=== PATIENT | female | born 1960 | race Caucasian/White ===

== ENCOUNTER 2023-12-02 13:46 | Emergency (ER) | payer BC, SELFPAY ==
--- NOTE | 2023-12-02 13:52 | ED.URI ---
HPI - URI/Sore Throat General Chief Complaint: Upper Respiratory Infection Stated Complaint: cold flu symptoms,tired Time Seen by Provider: 12/02/23 14:06 Source: patient and RN notes reviewed Mode of arrival: ambulatory Limitations: no limitations History of Present Illness HPI Narrative: 63-year-old female presents with concern for one-week history of cough, harsh cough, nasal congestion, drainage, fatigue. Reports symptoms worsen over the last couple of days. Reports she has been taking an [id number] medication without relief. MD elicited complaint: cough and sore throat Related Data Allergies Allergy/AdvReac Type Severity Reaction Status Date / Time cephalexin [From Keflex] Allergy Severe Diarrhea Verified 12/02/23 14:00 Review of Systems Review of Systems: CONSTITUTIONAL: Reports malaise, chills EYES: Denies visual changes, redness, or discharge. ENT: Reports rhinorrhea, congestion, sinus pain, otalgia and sore throat. CARDIOVASCULAR: Denies chest pain, palpitations, or edema. RESPIRATORY: Reports cough. Denies dyspnea. GASTROINTESTINAL: Denies abdominal pain, nausea, vomiting, diarrhea SKIN: Denies rash or itching. MUSCULOSKELETAL: Reports myalgia. NEUROLOGIC: Denies headache. All systems reviewed & are unremarkable except as noted in HPI and below PMFSH Past Medical History Medical History (Updated 12/02/23 @ 14:11 by Dorita Almeida NP) Crohn disease Eustachian tube dysfunction Hypothyroidism (acquired) Surgical History Surgical History (Updated 10/27/23 @ 15:24 by Jane Feliciano MD) H/O breast augmentation S/P JACK (total abdominal hysterectomy) Family History Family History (Updated 10/17/23 @ 15:07 by Uyen Perez) Mother Diabetes mellitus Depression Social History Social History (Updated 10/17/23 @ 15:05 by Uyen Perez) Social History: Smoking status: Never smoker Second hand tobacco smoke exposure: No Alcohol intake: current Drinks per week: 4 Substance use: never Substance use type: does not use Lack of Transportation: No Lack of Food: Never True Current Housing: I Have Housing Concerned About Future Housing: No Difficulty Paying Gas/Electric Bills: No Difficulty Paying for Meds: No Currently Unemployed: YES Education: Associate Degree Difficulty w/ Childcare or Family Care: No Living arrangements: with family Occupation/Education: retired Gender identity (if verbalized by the patient): Female Sexual Orientation (if Verbalized by the Patient): Straight or Heterosexual Comments At time of signature, agree with nursing past medical, surgical, social and family history. There is no relevant family history pertinent to the presenting complaint Exam Narrative: GENERAL: Nontoxic-appearing, well-nourished, and in no acute distress. HEAD: Normocephalic EYES: PERRLA, conjunctivae clear ENT: Nares clear, turbinates edematous and erythematous. Mucous membranes moist. TM pearly ball with dull light reflex bilaterally; no tragal tenderness. Oropharynx not erythematous without lesions. Tonsils not enlarged and without exudate, no drooling, no hoarseness, no trismus, uvula midline. NECK: Supple. No lymphadenopathy CHEST: Clear to auscultation, breath sounds equal. No wheezing, rhonchi, rales, or stridor. No respiratory distress, speaks in full sentences. Harsh cough noted HEART: Regular rate and rhythm. No murmur heard. SKIN: Warm, dry, no rash. NEURO: Alert and oriented x3. PSYCH: Normal mood and affect Course Course Emergency Course: Patient is aware of diagnosis, understands and agrees to treatment plan. Anticipatory guidance given. Patient agrees to follow-up as directed and is aware of reasons to seek care at the emergency department. Portions of this record may have been created with voice recognition software Level of Care: Express Care Visit Vital Signs Vital signs: Reviewed. ROBERTO CARLOS PRESCOTT/Lucrecia
[2023-12-02 14:05] VITALS: BP 139/83; PULSE 75; RESP 16; TEMP 37.4; O2SAT 98
== END 2023-12-02 14:16 | disposition home or self-care (01) ==
PROVIDERS: Emergency Provider Nurse Practitioner; PCP Family Medicine
DX: J32.9 Chronic sinusitis, unspecified (principal); J40 Bronchitis, not specified as acute or chronic; K50.90 Crohn's disease, unspecified, without complications; E03.9 Hypothyroidism, unspecified
CPT/HCPCS: 99213; G0463

== ENCOUNTER 2023-12-31 16:57 | Emergency (ER) | payer BC, SELFPAY ==
[2023-12-31 17:11] VITALS: BP 139/85; PULSE 84; RESP 16; TEMP 38.1; O2SAT 99
--- NOTE | 2023-12-31 17:26 | ED.URI ---
HPI - URI/Sore Throat General Chief Complaint: Upper Respiratory Infection Stated Complaint: Strep symptoms Time Seen by Provider: 12/31/23 17:20 Source: patient Mode of arrival: ambulatory Limitations: no limitations History of Present Illness HPI Narrative: Gina is a 63-year-old female patient presenting to the clinic today with complaints of nausea, vomiting, diarrhea, cough, fever, chills, body aches, sore throat, and nasal congestion since night. Reports highest temperature was 100.3? FKanwal GOMEZ elicited complaint: sore throat and nasal congestion Related Data Allergies Allergy/AdvReac Type Severity Reaction Status Date / Time cephalexin [From Keflex] Allergy Severe Diarrhea Verified 12/31/23 17:30 Review of Systems Review of Systems: Pertinent positives per HPI. Patient denies any rash, headache, visual changes, dizziness,shortness of breath, chest pain, palpitations, nausea, vomiting, diarrhea, constipation, abdominal pain, or any urinary issues. PMFSH Past Medical History Medical History Crohn disease Eustachian tube dysfunction Hypothyroidism (acquired) Surgical History Surgical History H/O breast augmentation S/P JACK (total abdominal hysterectomy) Family History Family History Mother Diabetes mellitus Depression Social History Social History Social History: Smoking status: Never smoker Second hand tobacco smoke exposure: No Alcohol intake: current Drinks per week: 4 Substance use: never Substance use type: does not use Lack of Transportation: No Lack of Food: Never True Current Housing: I Have Housing Concerned About Future Housing: No Difficulty Paying Gas/Electric Bills: No Difficulty Paying for Meds: No Currently Unemployed: YES Education: Associate Degree Difficulty w/ Childcare or Family Care: No Living arrangements: with family Occupation/Education: retired Gender identity (if verbalized by the patient): Female Sexual Orientation (if Verbalized by the Patient): Straight or Heterosexual Comments At the time of my signature, I reviewed and agree with the nursing past medical, surgical, social, and family history. There is no relevant family history pertinent to the patient complaint. Exam Narrative: General: Well-developed, well nourished, in no apparent distress Head: Normocephalic, atraumatic Eyes: Pupils equally round and reactive to light bilaterally, EOM intact, sclera and conjunctive clear, no discharge, lids normal Ears: TMs intact and clear, ear canals clear, no drainage, grossly hearing normal. Nose: Nares patent,clear nasal discharge, no inflammation, no sinus tenderness. Mouth: Oral pharynx red without lesions or masses, good dentition, MMM. Neck: Supple, trachea midline, no enlargement of anterior or posterior cervical nodes, no thyroid masses or goiter palpable. Cardio: Regular rate and rhythm, s1 and s2 normal, no murmur appreciated. Resp: Clear to auscultation bilaterally, no rhonchi, rales, wheezing or rubs Course Course Emergency Course: Portions of this record may have been created with voice recognition software. Level of Care: Express Care Visit Vital Signs Vital signs: Vital Signs Temperature 38.1 C H 12/31/23 17:11 Pulse Rate 84 12/31/23 17:11 Respiratory Rate 16 12/31/23 17:11 Blood Pressure 139/85 12/31/23 17:11 Pulse Oximetry 99 12/31/23 17:11 Temperature 38.1 C H 12/31/23 17:11 Pulse Rate 84 12/31/23 17:11 Respiratory Rate 16 12/31/23 17:11 Blood Pressure 139/85 12/31/23 17:11 Pulse Oximetry 99 12/31/23 17:11 Vital signs reviewed MDM - URI/Sore Throat MDM Narrative Medical decision making narrative: At the time o
--- NOTE | 2023-12-31 17:49 | PC.NURSE ---
1735- covid poc results entered incorrectly- pt is positive for covid 19 today.
== END 2023-12-31 17:35 | disposition home or self-care (01) ==
PROVIDERS: Emergency Provider Nurse Practitioner Family; PCP Family Medicine
DX: U07.1 COVID-19 (principal); K50.90 Crohn's disease, unspecified, without complications; E03.9 Hypothyroidism, unspecified
CPT/HCPCS: 87081; 87426; 87804; 87880; 99213; G0463

== ENCOUNTER 2024-01-05 10:38 | Emergency (ER) | payer BC, SELFPAY ==
--- NOTE | ~2024-01-05 | XR_ITS ---
EXAMINATION: XR chest 2V DATE: 01/05/2024 11:10 INDICATION: Cough and shortness of breath, COVID 19 positive TECHNIQUE: PA and lateral views of the chest are obtained. COMPARISON: None available FINDINGS: The lungs are free of acute opacities. No pleural effusion or pneumothorax. The cardiomedia stinal silhouette is normal. There is mild thoracic spondylosis. Bilateral breast implants are noted. IMPRESSION: 1. No acute cardiopulmonary abnormality. Reviewed, dictated and finalized at location A. 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
--- NOTE | 2024-01-05 10:44 | ED.URI ---
HPI - URI/Sore Throat General Chief Complaint: Upper Respiratory Infection Stated Complaint: Fever, COVID, Head Congestion Source: patient Mode of arrival: ambulatory Limitations: no limitations History of Present Illness HPI Narrative: 63 y/o female who tested positive for Covid 5 days ago, presented today for c/o worsening symptoms x3 days. States she had felt somewhat better for a few days before everything worsened. Endorses bilateral ear pressure, decreased hearing, decreased appetite, nausea, vomiting, sob with exertion, fever and fatigue. Endorses temp up to 103 this morning 0400. Taking Tylenol and multiple OTC meds for symptoms. Related Data Home Medications Medication Instructions Recorded Confirmed ipratropium bromide 21 mcg (0.03 intranasal 01/05/24 01/05/24 %) nasal spray Allergies Allergy/AdvReac Type Severity Reaction Status Date / Time cephalexin [From Keflex] Allergy Severe Diarrhea Verified 01/05/24 10:44 Review of Systems Review of Systems: CONSTITUTIONAL: Denies body aches, reports fever, chills, or sweats. EYES: Denies visual changes, redness, or discharge. ENT: Denies rhinorrhea, congestion, sore throat, reports otalgia. CARDIOVASCULAR: Denies chest pain, palpitations, or edema. RESPIRATORY: Reports cough, sob denies wheezing. GASTROINTESTINAL: Denies abdominal pain, reports decreased appetite nausea, vomiting, diarrhea. SKIN: Denies rash, itching MUSCULOSKELETAL: Denies back pain, joint pain NEUROLOGIC: Denies headache, numbness, tingling, or weakness. All systems reviewed & are unremarkable except as noted in HPI and below PMFSH Past Medical History Medical History Crohn disease Eustachian tube dysfunction Hypothyroidism (acquired) Surgical History Surgical History H/O breast augmentation S/P JACK (total abdominal hysterectomy) Family History Family History Mother Diabetes mellitus Depression Social History Social History Social History: Smoking status: Never smoker Second hand tobacco smoke exposure: No Alcohol intake: current Drinks per week: 4 Substance use: never Substance use type: does not use Lack of Transportation: No Lack of Food: Never True Current Housing: I Have Housing Concerned About Future Housing: No Difficulty Paying Gas/Electric Bills: No Difficulty Paying for Meds: No Currently Unemployed: YES Education: Associate Degree Difficulty w/ Childcare or Family Care: No Living arrangements: with family Occupation/Education: retired Gender identity (if verbalized by the patient): Female Sexual Orientation (if Verbalized by the Patient): Straight or Heterosexual Comments At time of signature, I have reviewed and agree with nursing past medical, surgical, social and family history unless otherwise noted. Please see nursing chart for further information. There is no relevant family history pertinent to the presenting complaint Exam Narrative: GENERAL: ill-appearing, nontoxic in no acute distress. Tearful throughout encounter. EYES: EOMI. No redness or drainage. Conjunctivae normal. ENT: Mucous membranes pink and moist. TMs bilaterally erythematous, bulging and intact, canals not erythematous, No drainage. Throat normal. Uvula midline. NECK: Normal AROM. CHEST: No respiratory distress. 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 No murmur appreciated. ABDOMEN: Soft, nontender, nondistended, normal active bowel sounds. EXTREMITIES: Normal range of motion. No edema. SKIN: Warm, dry, no rash. Capillary refill normal. Normal skin turgor. NEURO: Alert and oriented x3. Gait steady. Course Course Emergency Course: Patient is aware of diagnosis,
[2024-01-05 10:45] VITALS: BP 131/76; PULSE 76; RESP 16; TEMP 36.7; O2SAT 98
== END 2024-01-05 11:44 | disposition left against medical advice (07) ==
PROVIDERS: Emergency Provider Nurse Practitioner Family; PCP Family Medicine
DX: H66.93 Otitis media, unspecified, bilateral (principal); K50.90 Crohn's disease, unspecified, without complications; E03.9 Hypothyroidism, unspecified
CPT/HCPCS: 71046; 99213; G0463

== ENCOUNTER 2024-02-21 11:58 | Outpatient (CLI) | payer BC, SELFPAY ==
[2024-02-21 13:38] LABS: Thyroid Stimulating Hormone 0.845 uIU/mL (0.465-4.680); Total Triiodothyronine (T3) 1.18 NG/ML (0.97-1.69)
[2024-02-21 13:55] LABS: Free T4 Free Thyroxine 1.06 ng/mL (0.78-2.19)
[2024-02-25 04:18] LABS: Thyroid Peroxidase Antibodies <1 IU/mL (<9)
== END 2024-02-21 11:59 | disposition home or self-care (01) ==
LOC: ANHLAB 11:59
PROVIDERS: PCP Family Medicine; Visit Provider Family Medicine
DX: E03.9 Hypothyroidism, unspecified (principal)
CPT/HCPCS: 36415; 84439; 84443; 84480; 86376

== ENCOUNTER 2024-04-01 11:24 | Outpatient (CLI) | payer BC, SELFPAY ==
[2024-04-01 11:49] LABS: Basophils Percent Auto 0.3 % (0.2-1.2); Eosinophils Absolute Auto 0.2 K/mm3 (0-0.3); Eosinophils Percent Auto 2.2 % (0-4.4); Hematocrit 44.9 % (37.0-47.0); Hemoglobin 14.6 g/dL (12.0-15.0); Immature Granulocyte Absolute 0.03 K/mm3 (0.00-0.031); Immature Granulocyte Percent A 0.4 % (0-0.5); Lymphocytes Absolute Auto 1.36 K/mm3 (0.9-3.2); Lymphocytes Percent Auto 19.5 % (18.3-44.2); Mean Corpuscular HGB Conc 32.5 g/dl (32-36); Mean Corpuscular Hemoglobin 31.2 pg (26-34); Mean Corpuscular Volume 95.9 fl (80-100); Mean Platelet Volume 9.7 fl (7.4-10.4); Monocytes Absolute Auto 0.5 K/mm3 (0.1-0.6); Monocytes Percent Auto 7.8 % (2.6-8.5); Neutrophils Absolute Auto 4.9 K/mm3 (1.3-6.7); Neutrophils Percent Auto 69.8 % (45.5-73.1); Platelet Count Result 354 k/mm3 (150-375); Red Blood Count 4.68 M/mm3 (4.2-5.4); Red Cell Distribution Width 12.8 % (11.5-14.5)
[2024-04-01 12:19] LABS: Alanine Aminotransferase 24 U/L (6-35); Albumin Level 4.4 g/dL (3.5-5.1); Alkaline Phosphatase 122 U/L (38-126); Amylase 64 U/L (30-110); Anion Gap 7 mmol/L (4-12); Aspartate Amino Transferase 38 U/L (14-36); Bilirubin,Total 0.8 mg/dL (0.2-1.3); Blood Urea Nitrogen 12 mg/dL (7-17); Calcium 9.4 mg/dL (8.4-10.2); Carbon Dioxide 29 mmol/L (22-30); Chloride 101 mmol/L (98-107); Cholesterol 132 mg/dL (0-200); Estimated Glomerular Filt Rate > 60; Glucose 128 mg/dL (65-110); HDL Direct 66 mg/dL; Lipase 77 U/L (23-300); Potassium 3.6 mmol/L (3.4-5.0); Sodium 137 mmol/L (137-145); Triglycerides 213 mg/dL (<150)
[2024-04-01 12:25] LABS: LDL Cholesterol Direct 48 mg/dL
[2024-04-03 14:18] LABS: ANA Cascade Screen NEGATIVE (NEGATIVE)
== END 2024-04-01 11:25 | disposition home or self-care (01) ==
LOC: ANHLAB 11:26
PROVIDERS: PCP Family Medicine; Visit Provider Physician Assistant
DX: E03.9 Hypothyroidism, unspecified (principal); E78.2 Mixed hyperlipidemia; M25.50 Pain in unspecified joint; R10.9 Unspecified abdominal pain
CPT/HCPCS: 36415; 80053; 80061; 82150; 83690; 85025; 86038; 86225; 86235; 86364

== ENCOUNTER 2024-04-01 11:54 | Outpatient (CLI) | payer BC, SELFPAY ==
--- NOTE | ~2024-04-01 | CT_ITS ---
EXAMINATION: CT abdomen pelvis w con DATE: 04/01/2024 12:18 INDICATION: Unspecified abdominal pain. TECHNIQUE: Computed tomography (CT) of the abdomen and pelvis was performed with 100 mL Omnipaque 350 intravenous contrast. Automated exposure control and iterative reconstruction technique were employe d. The dose-length product was 519.30 mGy-cm. COMPARISON: None. FINDINGS: The visualized portions of the lung bases demonstrate mild atelectasis. No pleural effusion . The heart size is normal. No pericardial effusion. There is a small sliding hiatal hernia. The live r, gallbladder, spleen, pancreas, and adrenal glands are normal. There are cysts in the kidneys measu ring up to 4 mm. There are no dilated loops of bowel. The appendix is normal. Aortic atherosclerosis is noted. There are no pathologically enlarged lymph nodes. There is no free intraperitoneal fluid. T here is mild lumbar spondylosis. IMPRESSION: 1. No etiology for the patient's symptoms. Reviewed, dictated and finalized at location A.
[2024-04-01 12:12] LABS: Estimated Glomerular Filt Rate 56
== END 2024-04-01 11:55 | disposition home or self-care (01) ==
LOC: ANHIMG 11:54
PROVIDERS: PCP Family Medicine; Visit Provider Physician Assistant
DX: R10.829 Rebound abdominal tenderness, unspecified site (principal); R19.4 Change in bowel habit
CPT/HCPCS: 36415; 74177; 80053; 80061; 82150; 83690; 85025; 86038; 86225; 86235; 86364; Q9967

== ENCOUNTER 2024-04-01 14:34 | Outpatient (CLI) | payer BC, SELFPAY ==
--- NOTE | ~2024-04-01 | MM_ITS ---
EXAMINATION: MM scrn tonya implant BI w keira HISTORY: Screening mammogram TECHNIQUE: Craniocaudal and mediolateral oblique 3-D tomosynthesis images with implant displacement a nd synthetic 2-D images were generated. Craniocaudal and mediolateral oblique views of the breasts wi thout implant displacement were obtained using full field digital mammography. CAD analysis was submi tted and interpreted. COMPARISON: No prior mammogram is available for comparison at this institution. BREAST PARENCHYMAL COMPOSITION: Not dense: There are scattered areas of fibroglandular density. FINDINGS: There is no evidence of suspicious mass, calcification, or architectural distortion to sugg est malignancy in either breast. There has been no suspicious interval change. IMPRESSION: 1. No mammographic evidence of malignancy. 2. Recommend routine screening mammography in one year. BI-RADS Category 1: Negative Reviewed, dictated and finalized at location B.
== END 2024-04-01 14:35 ==
LOC: MICIMG 14:35
PROVIDERS: PCP Family Medicine; Visit Provider Family Medicine
DX: Z12.31 Encounter for screening mammogram for malignant neoplasm of breast (principal)
CPT/HCPCS: 77063; 77067

== ENCOUNTER 2024-05-04 14:22 | Outpatient (CLI) | payer BC, SELFPAY ==
[2024-05-04 15:14] LABS: CRP 1.8 mg/dL (<1.0)
[2024-05-04 17:11] LABS: Erythrocyte Sedimentation Rate 26 mm/hr (0-20)
[2024-05-04 18:29] LABS: Hepatitis B Surface Antigen Negative (Negative)
[2024-05-04 18:47] LABS: Hepatitis B Surface Anti Res Negative
[2024-05-05 12:13] LABS: Hepatitis B Core Ab Total NON-REACTIVE (NON-REACTIVE)
[2024-05-06 15:49] LABS: NIL 0.07 IU/mL; Quantiferon TB Plus, 1T NEGATIVE (NEGATIVE); TB1-NIL 0.01 IU/mL; TB2-NIL 0.01 IU/mL
== END 2024-05-04 14:23 | disposition home or self-care (01) ==
LOC: ANHLAB 14:24
PROVIDERS: PCP Family Medicine; Visit Provider Nurse Practitioner Family
DX: K50.90 Crohn's disease, unspecified, without complications (principal); R19.7 Diarrhea, unspecified; Z79.899 Other long term (current) drug therapy; Z11.59 Encounter for screening for other viral diseases
CPT/HCPCS: 36415; 85652; 86140; 86480; 86704; 86706; 87340

== ENCOUNTER 2024-05-08 12:53 | Outpatient (CLI) | payer BC, SELFPAY ==
[2024-05-08 14:31] LABS: Toxigenic C. Diff NEGATIVE (NEGATIVE)
== END 2024-05-08 12:54 | disposition home or self-care (01) ==
LOC: ANHLAB 12:55
PROVIDERS: PCP Family Medicine; Visit Provider Nurse Practitioner Family
DX: K50.90 Crohn's disease, unspecified, without complications (principal); R19.7 Diarrhea, unspecified; Z11.59 Encounter for screening for other viral diseases; Z79.899 Other long term (current) drug therapy
CPT/HCPCS: 83993; 87045; 87269; 87427; 87449; 87493

== ENCOUNTER 2024-05-26 00:52 | Emergency (ER) | payer BC, SELFPAY ==
[2024-05-26 00:55] VITALS: BP 120/91; PULSE 105; RESP 15; TEMP 36.8; O2SAT 98
[2024-05-26 01:15] VITALS: BP 172/91; PULSE 86; RESP 16; O2SAT 96
--- NOTE | 2024-05-26 01:59 | ED.SKABFB ---
HPI - Skin/Abscess/Foreign Bdy General Chief complaint: Skin/Abscess/Foreign Body Stated complaint: shingles, radiating pain, fevers Time Seen by Provider: 05/26/24 01:49 Source: patient and family () Mode of arrival: ambulatory Limitations: no limitations History of Present Illness HPI narrative: Patient presents with pain across her left low abdomen and back. Her symptoms began on 05/22/2024 and started with some burning and itching pain along her abdomen. She was seen in urgent care [phone] and diagnosed with shingles for which she was immediately prescribed Valtrex and started taking his medication. However, she continues to have significant pain. She denies any current itching but does describe a burning sensation in distribution of rash. She had previously attempted to get a shingles vaccine but it was cancelled since it had been scheduled for the same day she got her COVID vaccine. She denies any SOB. She did recently undergo sinus surgery with packing and was prescribed [place] 5-325 for this. Pain from shingles was so bad she had to take a tablet though she usually tries to avoid this; has 6 [place] 5mg tablets left. Patient had previously been on Imuran and Elizcal (sp?) for Crohn's has otherwise been in remission. 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 Regino sena however this was postponed to 06/11/24 given the recent shingles diagnosis. Her last steroid dose was in January. She does not take NSAIDs given her history of Crohn's as this makes her symptoms worse Related Data Home Medications Medication Instructions Recorded Confirmed ipratropium bromide 21 mcg (0.03 1 spray intranasal DAILY 01/05/24 05/15/24 %) nasal spray Allergies Allergy/AdvReac Type Severity Reaction Status Date / Time No Known Allergies Allergy Verified 05/26/24 01:18 [facility] Past Medical History Medical History (Updated 05/26/24 @ 03:40 by Dilcia Chatman MD) Crohn disease Diarrhea Eustachian tube dysfunction GERD (gastroesophageal reflux disease) High risk medication use Hx of adenomatous colonic polyps Hypothyroidism (acquired) Nausea and vomiting Need for hepatitis B screening test Surgical History Surgical History (Updated 05/26/24 @ 18:06 by Dilcia Chatman MD) H/O breast augmentation History of sinus surgery May 2024 S/P JACK (total abdominal hysterectomy) Family History Family History Mother Diabetes mellitus Depression Social History Social History (Updated 05/26/24 @ 17:59 by Dilcia Chatman MD) Social History: Years smoked: 30 Smoking status: Former smoker Tobacco type: cigarettes Second hand tobacco smoke exposure: No Alcohol intake: current Drinks per week: 14 Substance use: current Substance use type: marijuana Last use: 05/02/24 Lack of Transportation: No Lack of Food: Never True Current Housing: I Have Housing Concerned About Future Housing: No Difficulty Paying Gas/Electric Bills: No Difficulty Paying for Meds: No Currently Unemployed: YES Education: Associate Degree Difficulty w/ Childcare or Family Care: No Living arrangements: other Additional living arrangements comments: with sp Occupation/Education: retired 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 HEAD: Normocephalic, atraumatic. EYES: Non injected, non icteric ENT: Nares clear, no rhinorrhea or epistaxis. NECK: Supple. CHEST: Speaking in full sentences. No respiratory distress. HEART: Mildly tachycardic rate and rhythm. . ABDOMEN: Soft, nondis
[2024-05-26 02:06] VITALS: BP 143/95; PULSE 91; RESP 16; O2SAT 99
[2024-05-26] MEDS: HYDROmorphone HCL INJ (*CRX) 1 MG/ML SYR 0.5 MG IV PUSH (02:17)
[2024-05-26 02:25] LABS: Basophils Percent Auto 0.7 % (0.2-1.2); Eosinophils Absolute Auto 0.1 K/mm3 (0-0.3); Hematocrit 44.4 % (37.0-47.0); Immature Granulocyte Absolute 0.02 K/mm3 (0.00-0.031); Immature Granulocyte Percent A 0.4 % (0-0.5); Lymphocytes Absolute Auto 1.34 K/mm3 (0.9-3.2); Lymphocytes Percent Auto 23.8 % (18.3-44.2); Mean Corpuscular HGB Conc 33.8 g/dl (32-36); Mean Corpuscular Hemoglobin 31.9 pg (26-34); Mean Corpuscular Volume 94.5 fl (80-100); Mean Platelet Volume 9.6 fl (7.4-10.4); Monocytes Absolute Auto 0.7 K/mm3 (0.1-0.6); Monocytes Percent Auto 12.1 % (2.6-8.5); Neutrophils Absolute Auto 3.4 K/mm3 (1.3-6.7); Platelet Count Result 296 k/mm3 (150-375); Red Cell Distribution Width 13.5 % (11.5-14.5); White Blood Count 5.6 K/mm3 (4.5-10.0)
[2024-05-26 02:44] LABS: Alanine Aminotransferase 22 U/L (6-35); Albumin Level 4.5 g/dL (3.5-5.1); Alkaline Phosphatase 106 U/L (38-126); Anion Gap 10 mmol/L (4-12); Aspartate Amino Transferase 33 U/L (14-36); Bilirubin,Total 0.8 mg/dL (0.2-1.3); Blood Urea Nitrogen 8 mg/dL (7-17); CRP 0.9 mg/dL (<1.0); Calcium 9.6 mg/dL (8.4-10.2); Carbon Dioxide 24 mmol/L (22-30); Chloride 102 mmol/L (98-107); Estimated CRCL calculation 54 ml/min; Estimated Glomerular Filt Rate 56; Glucose 121 mg/dL (65-110); Sodium 136 mmol/L (137-145)
[2024-05-26 03:02] VITALS: BP 139/75; PULSE 76; RESP 16; O2SAT 94
[2024-05-26 03:36] LABS: Erythrocyte Sedimentation Rate 43 mm/hr (0-20)
[2024-05-26] MEDS: LIDOCAINE 5% PATCH 1 PATCH TRANSDERM (03:43)
== END 2024-05-26 03:44 | disposition home or self-care (01) ==
PROVIDERS: Emergency Provider Student in an Organized Health Care Education/Training Program; PCP Family Medicine
DX: B02.9 Zoster without complications (principal); R70.0 Elevated erythrocyte sedimentation rate; E03.9 Hypothyroidism, unspecified; Z87.891 Personal history of nicotine dependence
CPT/HCPCS: 36415; 80053; 85025; 85652; 86140; 96374; 99284; A9270; J1170

== ENCOUNTER 2024-05-28 19:16 | Emergency (ER) | payer BC, SELFPAY ==
--- NOTE | ~2024-05-28 | CT_ITS ---
EXAMINATION: CT abdomen pelvis w con DATE: 05/28/2024 21:59 INDICATION: left-sided abdominal pain TECHNIQUE: Computed tomography (CT) of the abdomen and pelvis was performed with 100 mL Omnipaque-350 intravenous contrast. Automated exposure control and iterative reconstruction technique were employe d. The dose-length product was 427.29 mGy-cm. COMPARISON: 04/01 2024. FINDINGS: Lower thorax: Bilateral breast implants. Minimal dependent scar/atelectasis. Liver: Normal. Biliary/Gallbladder: Mild gallbladder distention. No bile duct dilation. Pancreas: No mass or duct dilation. Spleen: Normal. Adrenals:No mass. Kidneys: No suspicious mass, obstructing stone, or hydronephrosis. Multiple subcentimeter bilateral h ypodensities that are too small to characterize but most likely represent cysts. GI tract: No small or large bowel dilation. Normal appendix. Mesentery/Peritoneum: No ascites, mass, or free air. Retroperitoneum: No mass. Atherosclerotic abdominal aortic and/or arterial calcifications. Pelvis: Pelvic organs are within normal limits. Soft Tissues: Soft tissues and body wall unremarkable. Bones: No acute osseous finding. IMPRESSION: Mild gallbladder hydrops which can occur with obstruction or fasting. No stones or inflammatory friedman e. Correlate with biliary labs. Otherwise, no acute abdominopelvic process detected. Reviewed, dictated and finalized at location K. IMPRESSION: Mild gallbladder hydrops which can occur with obstruction or fasting. No stones or inflammatory change. Correlate with biliary labs. Otherwise, no acute abdominopelvic process detected.
[2024-05-28 19:32] VITALS: BP 130/98; PULSE 86; RESP 15; TEMP 36.6; O2SAT 98
[2024-05-28 19:53] LABS: Basophils Percent Auto 0.4 % (0.2-1.2); Eosinophils Absolute Auto 0.1 K/mm3 (0-0.3); Eosinophils Percent Auto 1.8 % (0-4.4); Hematocrit 44.9 % (37.0-47.0); Hemoglobin 14.9 g/dL (12.0-15.0); Immature Granulocyte Absolute 0.02 K/mm3 (0.00-0.031); Immature Granulocyte Percent A 0.3 % (0-0.5); Lymphocytes Absolute Auto 1.97 K/mm3 (0.9-3.2); Lymphocytes Percent Auto 27.6 % (18.3-44.2); Mean Corpuscular HGB Conc 33.2 g/dl (32-36); Mean Corpuscular Hemoglobin 31.4 pg (26-34); Mean Corpuscular Volume 94.5 fl (80-100); Mean Platelet Volume 9.6 fl (7.4-10.4); Monocytes Absolute Auto 0.7 K/mm3 (0.1-0.6); Monocytes Percent Auto 9.1 % (2.6-8.5); Neutrophils Absolute Auto 4.3 K/mm3 (1.3-6.7); Neutrophils Percent Auto 60.8 % (45.5-73.1); Platelet Count Result 342 k/mm3 (150-375); Red Blood Count 4.75 M/mm3 (4.2-5.4); Red Cell Distribution Width 13.4 % (11.5-14.5); White Blood Count 7.1 K/mm3 (4.5-10.0)
[2024-05-28 20:05] LABS: Alanine Aminotransferase 18 U/L (6-35); Albumin Level 4.5 g/dL (3.5-5.1); Alkaline Phosphatase 90 U/L (38-126); Anion Gap 10 mmol/L (4-12); Aspartate Amino Transferase 26 U/L (14-36); Bilirubin,Total 0.7 mg/dL (0.2-1.3); Blood Urea Nitrogen 10 mg/dL (7-17); Calcium 9.6 mg/dL (8.4-10.2); Carbon Dioxide 23 mmol/L (22-30); Chloride 104 mmol/L (98-107); Estimated CRCL calculation 54 ml/min; Estimated Glomerular Filt Rate 56; Glucose 117 mg/dL (65-110); Lipase 81 U/L (23-300); Potassium 4.1 mmol/L (3.4-5.0); Sodium 137 mmol/L (137-145)
[2024-05-28] MEDS: HYDROmorphone HCL INJ (*CRX) 1 MG/ML SYR IV PUSH (20:28)
[2024-05-28] MEDS: SODIUM CHLORIDE 0.9% IV 1,000 ML 999 ML IV CONT (20:29)
[2024-05-28 20:35] LABS: Appearance Urine Cloudy (Clear); Bacteria Urine 3+ /hpf; Bilirubin Urine Negative (Negative); Blood Urine Negative (Negative); Color Urine Yellow (Yellow); Glucose Urine UA Negative (Negative); Ketones Urine Negative (Negative); Leukocyte Esterase Ur Trace LEU/UL (Negative); Need Manual Microscopic Reviewed; Nitrate Urine Negative (Negative); Protein Urine 1+ mg/dL (Negative); RBC Urine 0-2 /hpf (0-2); Specific Grav Ur 1.014 (1.001-1.035); Squamous Epithelial Cell Urine Many /hpf (Few); Urobilinogen Urine 0.2 mg/dL (<2.0); pH Urine 5.5 (5.0-9.0)
[2024-05-28 20:36] LABS: Add Urine Microscopic? YES
--- NOTE | 2024-05-28 21:03 | PC.NURSE ---
patient had full hysterectomy
[2024-05-28] MEDS: GABAPENTIN 300 MG CAPSULE 600 MG PO (21:28)
[2024-05-28 22:05] VITALS: BP 111/72; PULSE 72; RESP 15; O2SAT 99
[2024-05-28 23:30] VITALS: BP 134/73; PULSE 76; RESP 13; O2SAT 98
--- NOTE | 2024-05-28 23:35 | PC.NURSE ---
care and report given to HUONG Gupta. all questions answered.
--- NOTE | 2024-05-28 23:51 | PC.NURSE ---
Spoke with RN from [facility] who tells me that if the pt cannot get to [facility] by 0230 then she will have to arrive after 0900.
--- NOTE | 2024-05-28 23:56 | ED.GENADULT ---
HPI - General Adult General Chief complaint: Unspecified Stated complaint: abd distention Time Seen by Provider: 05/28/24 20:09 History of Present Illness HPI narrative: patient 8-year-old female who presents emergency department with chief complaint of abdominal pain. The patient reports she was diagnosed with shingles is currently on antivirals but reports that she has had worsening pain the patient has been on hydrocodone but reports that is not really helping her pain the patient does report that the area around where the rash is appears to be more swollen and was concerned for other possible issues Related Data Home Medications Medication Instructions Recorded Confirmed ipratropium bromide 21 mcg (0.03 1 spray intranasal DAILY 01/05/24 05/28/24 %) nasal spray Allergies Allergy/AdvReac Type Severity Reaction Status Date / Time No Known Allergies Allergy Verified 05/28/24 19:38 Review of Systems Review of Systems: A 10 system review of systems was completed on the patient and is negative except for what is stated in the HPI. Nursing and ancillary documentation was reviewed. PMFSH Past Medical History Medical History Crohn disease Diarrhea Eustachian tube dysfunction GERD (gastroesophageal reflux disease) High risk medication use Hx of adenomatous colonic polyps Hypothyroidism (acquired) Nausea and vomiting Need for hepatitis B screening test Surgical History Surgical History H/O breast augmentation History of sinus surgery May 2024 S/P JACK (total abdominal hysterectomy) Family History Family History Mother Diabetes mellitus Depression Social History Social History Social History: Years smoked: 30 Smoking status: Former smoker Tobacco type: cigarettes Second hand tobacco smoke exposure: No Alcohol intake: current Drinks per week: 14 Substance use: current Substance use type: marijuana Last use: 05/02/24 Lack of Transportation: No Lack of Food: Never True Current Housing: I Have Housing Concerned About Future Housing: No Difficulty Paying Gas/Electric Bills: No Difficulty Paying for Meds: No Currently Unemployed: YES Education: Associate Degree Difficulty w/ Childcare or Family Care: No Living arrangements: other Additional living arrangements comments: with sp Occupation/Education: retired 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 HEAD: Normocephalic, atraumatic. EYES: PERRLA and EOMI. ENT: Nares clear, no rhinorrhea or epistaxis. Mucous membranes moist. NECK: Supple. CHEST: Clear to auscultation. No respiratory distress. HEART: Regular rate and rhythm. No murmur heard. Normal peripheral pulses. ABDOMEN: Soft, mild diffuse tenderness the abdomen, nondistended, normal active bowel sounds. EXTREMITIES: Normal range of motion. No edema. SKIN: Warm, dry, zoster for rash present to the left side of the abdomen. NEURO: No focal deficits. Alert and oriented x3. PSYCH: Normal mood and affect. Course Vital Signs Vital signs: Vital Signs Temperature 36.6 C 05/28/24 19:32 Pulse Rate 86 05/28/24 19:32 Respiratory Rate 15 05/28/24 19:32 Blood Pressure 130/98 H 05/28/24 19:32 Pulse Oximetry 98 05/28/24 19:32 Oxygen Delivery Room Air 05/28/24 19:32 Temperature 36.6 C 05/28/24 19:32 Pulse Rate 76 05/28/24 23:30 Respiratory Rate 13 05/28/24 23:30 Blood Pressure 134/73 05/28/24 23:30 Pulse O
== END 2024-05-29 00:20 | disposition home or self-care (01) ==
PROVIDERS: Emergency Provider Emergency Medicine; PCP Family Medicine
DX: B02.9 Zoster without complications (principal); E03.9 Hypothyroidism, unspecified; Z87.891 Personal history of nicotine dependence
CPT/HCPCS: 36415; 74177; 80053; 81001; 83690; 85025; 87086; 87088; 96361; 96374; 99284; A9270; J1170; J7030; Q9967

== ENCOUNTER 2024-06-11 01:21 | Day surgery (SDC) | payer BC, SELFPAY ==
[2024-05-15 13:31] VITALS: BMI 25.2
[2024-06-11 08:43] VITALS: BP 150/102; PULSE 80; RESP 20; TEMP 36.7; O2SAT 98; BMI 24.4
[2024-06-11] MEDS: LACTATED RINGERS 1,000 ML 150 ML IV CONT (08:59)
[2024-06-11] MEDS: fentaNYL CITRATE INJ (*CRX) 100 MCG/2 ML VIAL 25 MCG IV PUSH (09:02)
--- NOTE | 2024-06-11 09:19 | WPDANESEPPF ---
Anes - Initial Pre Proc Eval Procedure: Operation Date: 06/11/24 10:00 Proposed Procedures p Esophagogastroduodenoscopy & Colonoscopy - Wood Christianson MD Date/Time: 06/11/24 09:19 Surgeon: Wood Christianson MD Pre Op Diagnosis: GERD,N&V,Diarrhea, Crohn's, pers.hx. colon polyps Patient Data Age: 64 Gender: F Height: 1.75 m Weight: 75.1 kg Last Vital Signs Temp 98.1 F 06/11/24 08:43 Pulse 80 06/11/24 08:43 Resp 20 06/11/24 08:43 BP 150/102 H 06/11/24 08:43 Pulse Ox 98 06/11/24 08:43 O2 Del Method Room Air 06/11/24 08:43 Allergies Allergy/AdvReac Type Severity Reaction Status Date / Time egg Allergy Severe Nausea and Verified 06/11/24 08:42 Vomiting Home Medications Medication Instructions Recorded Confirmed Type fluoxetine 20 mg capsule 20 mg PO DAILY #90 caps 10/17/23 06/11/24 Rx ipratropium bromide 21 mcg (0.03 1 spray intranasal DAILY 01/05/24 06/11/24 History %) nasal spray levothyroxine 50 mcg tablet 50 mcg PO DAILY #90 tabs 03/19/24 06/11/24 Rx spironolactone 25 mg tablet See Rx Instructions .Route 03/23/24 06/11/24 Rx .COMPLEX #180 tabs esomeprazole magnesium 40 mg 40 mg PO DAILY 1 month #30 caps 05/04/24 06/11/24 Rx capsule,delayed release (Nexium) acetaminophen 500 mg capsule 1,000 mg PO Q6H PRN pain #30 caps 05/26/24 06/11/24 Rx hydrocodone 7.5 mg-acetaminophen 1 tablet PO Q8H PRN pain #12 tabs 05/26/24 06/11/24 Rx 325 mg tablet lidocaine 4 % topical patch 1 patch topical DAILY PRN pain #15 05/26/24 06/11/24 Rx (AsperFlex (lidocaine)) ea gabapentin 300 mg capsule 300 mg PO TID 10 days #30 caps 05/29/24 06/11/24 Rx Patient hx anesthesia problems: none Family hx anesthesia problems: none Results Review: All pre-operative results and documents have been reviewed as part of the pre-operative evaluation. FOR[facility]LY [facility] Past Medical History Medical History Crohn disease Diarrhea Eustachian tube dysfunction GERD (gastroesophageal reflux disease) High risk medication use Hx of adenomatous colonic polyps Hypothyroidism (acquired) Nausea and vomiting Need for hepatitis B screening test Surgical History Surgical History H/O breast augmentation History of sinus surgery May 2024 S/P JACK (total abdominal hysterectomy) Family History Family History Mother Diabetes mellitus Depression Social History Social History Social History: Years smoked: 30 Smoking status: Former smoker Tobacco type: cigarettes Second hand tobacco smoke exposure: No Alcohol intake: current Drinks per week: 14 Substance use: current Substance use type: marijuana Last use: 05/02/24 Lack of Transportation: No Lack of Food: Never True Current Housing: I Have Housing Concerned About Future Housing: No Difficulty Paying Gas/Electric Bills: No Difficulty Paying for Meds: No Currently Unemployed: YES Education: Associate Degree Difficulty w/ Childcare or Family Care: No Living arrangements: other Additional living arrangements comments: with sp Occupation/Education: retired 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
[2024-06-11 09:29] VITALS: BP 136/72; PULSE 70; O2SAT 97
--- NOTE | 2024-06-11 09:41 | PM.HPGS ---
History of Present Illness History of Present Illness Consent: Risks, benefits, and alternatives have been discussed and questions answered. Patient agrees to proceed with procedure. Chief complaint: GERD,N&V,Diarrhea, Crohn's, pers.hx. colon polyps Narrative: iGna Cole is a 64 year old female diagnosed with Crohn's in 2001 after colonoscopy, currently she is not taking any medications but used to be at some point on steroids, imuran and mesalamine, never had been biologics and denies GI surgery for Crohn's, she was told that was involving part of small bowel and colon. She used to be live in [place] but just recently retired [place]. Lately with more GI issues with pain, diarrhea and nausea. Here to establish care and also get EGD/colonoscopy Review of Systems Review of Systems: All systems reviewed & are unremarkable except as noted in HPI and below PMFSH Past Medical History Medical History Crohn disease Diarrhea Eustachian tube dysfunction GERD (gastroesophageal reflux disease) High risk medication use Hx of adenomatous colonic polyps Hypothyroidism (acquired) Nausea and vomiting Need for hepatitis B screening test Surgical History Surgical History H/O breast augmentation History of sinus surgery May 2024 S/P JACK (total abdominal hysterectomy) Family History Family History Mother Diabetes mellitus Depression Social History Social History Social History: Years smoked: 30 Smoking status: Former smoker Tobacco type: cigarettes Second hand tobacco smoke exposure: No Alcohol intake: current Drinks per week: 14 Substance use: current Substance use type: marijuana Last use: 05/02/24 Lack of Transportation: No Lack of Food: Never True Current Housing: I Have Housing Concerned About Future Housing: No Difficulty Paying Gas/Electric Bills: No Difficulty Paying for Meds: No Currently Unemployed: YES Education: Associate Degree Difficulty w/ Childcare or Family Care: No Living arrangements: other Additional living arrangements comments: with sp Occupation/Education: retired 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 Gender identity (if verbalized by the patient): Female Sexual Orientation (if Verbalized by the Patient): Straight or Heterosexual Meds Home Medications and Allergies Home Medications Medication Instructions Recorded Confirmed Type fluoxetine 20 mg capsule 20 mg PO DAILY #90 caps 10/17/23 06/11/24 Rx ipratropium bromide 21 mcg (0.03 1 spray intranasal DAILY 01/05/24 06/11/24 History %) nasal spray levothyroxine 50 mcg tablet 50 mcg PO DAILY #90 tabs 03/19/24 06/11/24 Rx spironolactone 25 mg tablet See Rx Instructions .Route 03/23/24 06/11/24 Rx .COMPLEX #180 tabs esomeprazole magnesium 40 mg 40 mg PO DAILY 1 month #30 caps 05/04/24 06/11/24 Rx capsule,delayed release (Nexium) acetaminophen 500 mg capsule 1,000 mg PO Q6H PRN pain #30 caps 05/26/24 06/11/24 Rx hydrocodone 7.5 mg-acetaminophen 1 tablet PO Q8H PRN pain #12 tabs 05/26/24 06/11/24 Rx 325 mg tablet lidocaine 4 % topical patch 1 patch topical DAILY PRN pain #15 05/26/24 06/11/24 Rx (AsperFlex (lidocaine)) ea gabapentin 300 mg capsule 300 mg PO TID 10 days #30 caps 05/29/24 06/11/24 Rx Allergies Allergy/AdvReac Type Severity Reaction Status Date / Time egg Allergy Severe Nausea and Verified 06/11/24 08:42 Vomiting Vital Signs Vital Signs - 24 hr 06/11/24 08:43 06/11/24 09:29 Temperature 98.1 F Pulse Rate 80 70 Respiratory Rate 20 Blood Pressure 150/102 H 136/72 Pulse Oximetry 98 97 Oxygen Delivery Room Air Room Air Exam Const:
--- NOTE | 2024-06-11 10:00 | SUR.OPER ---
EGD: [id number] COLON: Start 958
[2024-06-11 10:16] VITALS: BP 146/86; PULSE 69; RESP 16; O2SAT 99
[2024-06-11 10:26] VITALS: BP 167/92; PULSE 64; RESP 21; O2SAT 99
[2024-06-11 10:36] VITALS: BP 171/83; PULSE 61; RESP 18; O2SAT 100
[2024-06-11] MEDS: ONDANSETRON INJ 4 MG/2 ML VIAL IV PUSH (10:38)
== END 2024-06-11 10:53 | disposition home or self-care (01) ==
PROVIDERS: PCP Nurse Practitioner; Referring Provider Nurse Practitioner Family; Visit Provider Internal Medicine Gastroenterology
PROC: 0DJ08ZZ Inspection of Upper Intestinal Tract, Via Natural or Artificial Opening Endoscopic (ICD-10-PCS; CPT 43235; principal; 2024-06-11 10:00)
DX: K29.50 Unspecified chronic gastritis without bleeding (principal); K50.90 Crohn's disease, unspecified, without complications; K64.8 Other hemorrhoids; K44.9 Diaphragmatic hernia without obstruction or gangrene; K21.9 Gastro-esophageal reflux disease without esophagitis; E03.9 Hypothyroidism, unspecified; F12.90 Cannabis use, unspecified, uncomplicated; Z79.891 Long term (current) use of opiate analgesic; Z98.890 Other specified postprocedural states; Z86.010 Personal history of colon polyps; Z87.891 Personal history of nicotine dependence
CPT/HCPCS: 43239; 45380; 88305; J2405; J2704; J3010; J7120

== ENCOUNTER 2024-06-29 09:22 | Outpatient (CLI) | payer BC, SELFPAY ==
--- NOTE | ~2024-06-29 | US_ITS ---
Left flank Soft tissue of the abdomen ULTRASOUND Ordering provider: Kirsten Eaton NP History: . R10.9 - Unspecified abdominal pain . Comparison: None. FINDINGS/impression: No evidence of hernia seen. No masses noted. Reviewed, dictated and finalized at location A.
== END 2024-06-29 09:23 ==
PROVIDERS: PCP Nurse Practitioner; Visit Provider Nurse Practitioner
DX: R10.9 Unspecified abdominal pain (principal)
CPT/HCPCS: 76705

== ENCOUNTER 2024-07-29 07:57 | Outpatient (CLI) | payer BC, SELFPAY ==
--- NOTE | ~2024-07-29 | XR_ITS ---
EXAMINATION: XR small bowel follow through DATE: 07/29/2024 09:28 INDICATION: Crohn's disease presenting with diarrhea. TECHNIQUE: Route Sales Person radiograph(s) of the abdomen was/were obtained. Oral contrast was administered, and sequential radiographs of the abdomen were obtained until oral contrast was noted to be in the proxi mal colon. Spot fluoroscopic images of the small bowel were obtained. A total of 21 fluoroscopic imag es and 3 overhead radiographs were obtained. Fluoroscopy exposure time was 1.3 minutes. Total DAP was 52.818 Gycm^2 COMPARISON: None. FINDINGS: Transit time from the stomach to proximal colon was approximately 15 minutes. There is normal caliber and mucosal fold pattern throughout the small bowel. Terminal ileum is normal. Normal contrast-fill ed appendix. No tethering or abnormal mass effect observed upon the small bowel with real-time fluoro scopy. IMPRESSION: 1. Normal small bowel follow-through. Reviewed, dictated and finalized at location A.
== END 2024-07-29 07:58 | disposition home or self-care (01) ==
PROVIDERS: PCP Nurse Practitioner; Visit Provider Nurse Practitioner Family
DX: K50.90 Crohn's disease, unspecified, without complications (principal); R19.7 Diarrhea, unspecified
CPT/HCPCS: 74250

== ENCOUNTER → 2024-11-16 13:55 | Outpatient (REF) | payer BC, SELFPAY | LOC: ANHLAB 13:55 | PROVIDERS: Visit Provider Plastic Surgery | DX: K09.9 Cyst of oral region, unspecified (principal) | CPT/HCPCS: 88305 ==

== ENCOUNTER 2025-01-06 23:05 | Emergency (ER) | payer BC, SELFPAY ==
--- OUTSIDE RECORDS SUMMARY | 2025-01-06 23:07 | XMS_ITS | Encounter Summary ---
Author Organization [facility] Address [address] [place] [address] Care Team Providers Care Geropsychologist Name Role Phone Tessy Francois DO Primary Care Provider [phone] Encounter Details Date Type Department Care Team (Late st Contact Info) Description 08/28/2007 Outpatient Historical 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
--- OUTSIDE RECORDS SUMMARY | 2025-01-06 23:07 | XMS_ITS | Encounter Summary ---
Author Organization [facility] Address [address] [place] [address] Care Team Providers Care Telephonic Nurse Case Manager Name Role Phone Rock Bullock MD Primary Care Provider [phone] Dillan Woody MD Primary Care Provider [phone] Encounter Details Date Type Department Care Team (Late st Contact Info) Description 12/28/2010 [facility] Outpatient Visit EXTERNAL NON-[facility] DEPT Rock Bullock MD [address] [place] [address] Social History Tobacco Use Types Packs/Day Years Used Date Smoking Tobacco: Passive Smo ke Exposure - Never Smoker Smokeless Tobacco: Never Alcohol Use Standard Drinks/Week Comments Yes 0 (1 standard drink = 0.6 oz pur e alcohol) Occasional Sex and Gender Information Value Date Recorded Sex Assigned at Not on file Gender Identity Not on file Sexual Orientation Not on file documented as of this encounter Plan of Treatment Not on file documented as of this encounter Visit Diagnoses Not on filedocumented in this encounter Care Teams Telephonic Nurse Case Manager Relationship Specialty Start Date End Date Rock Bullock MD [address] [place] [address] PCP - General 12/26/10 02/25/12 Dillan Woody MD [address] [place] [address] PCP - General Internal Medicine 02/26/12 documented as of this encounter
--- OUTSIDE RECORDS SUMMARY | 2025-01-06 23:07 | XMS_ITS | Encounter Summary ---
Author Organization [facility] Address [address] [place] [address] Care Team Providers Care Customer Service Coordinator Name Role Phone Priscila Tessydasha Mchugh Primary Care Provider [phone] Encounter Details Date Type Department Care Team (Latest Contact Info) Description 07/08/2009 Outpatient Historical [facility] Sujatha Ledesma MD [address] [place] [address] Regional Enteritis of Unspecified Site (CMS/HCC) Social History Tobacco Use Types Packs/Day Years Used Date Smoking Tobacco: Never Assessed Comments Unknown Sex and Gender Information Value Date Recorded Sex Assigned at Not on file 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 Gender Identity Not on file Sexual Orientation Not on file documented as of this encounter Plan of Treatment Not on file documented as of this encounter Procedures Procedure Name Priority Date/Time Associated Diagnosis Comments MISCELLANEOUS LAB TEST Routine 9 12:26 PM CDT CBC WITH DIFFERENTIAL Routine 07/13/2009 12:26 PM CDT TSH Routine 07/13/2009 12:26 PM CDT VITAMIN B12 LEVEL Routine 07/13/2009 12: 26 PM CDT documented in this encounter Results * MISCELLANEOUS LAB TEST (07/13/2009 12:26 PM CDT) SPECIMEN TYPE Blood [facility] TEST NAME THIOPURINE METABOLITES [facility] MISCELLANEOUS LAB TEST Name of Test: Memetales THIOPURINE METABOLITES Test Result: Metabolite: 6-TGN Result (Units: pmole/8x10^8 RBC): 426 Reference Range: 230 ? 400 Result Assessment: Higher Risk of Leucopenia. Higher Likelihood of Response. Metabolite: 6-MMPN Result (Units: pmole/8x10^8 RBC): 2516 Reference Range: <5700 Result Assessment: Lower Risk of Hepatotoxicity. Test Performed By: [employer], [place], [place] [facility] Specimen of unknown material (specimen) 07/13/2009 12:26 PM CDT 07/13/2009 12:36 PM CDT us Sujatha Prado MD CHEMISTRY ORDERABLES Edited Performing Organization Address [facility]/ZIP Co de Phone Number [facility] CLIA# [id number] [address] [place] [address] * VITAMIN B12 (07/13/2009 12:26 PM CDT) Pathologist [facility] [place] VITAMIN B12 [phone] 946 pg/mL [facility] Comment: It has been reported that between 5 to 10% of patients with values between 200 and 400 pg/mL may experience neuropsychiatric and hematologic abnormalities due to occult B12 deficiency. Less than 1% of patients with values above 400 pg/mL will have symptoms. Blood specimen (specimen) 07/13/2009 12:26 PM CDT 07/13/2009 12:36 PM CDT us Sujatha Prado MD CHEMISTRY ORDERABLES Edited [facility] CLIA# [id number] [address] [place] [address] * TSH (07/13/2009 12:26 PM CDT) [facility] TSH 0.98 0.27 - 4.20 uU/mL [facility] Blood specimen (specimen) 07/13/2009 12:26 PM CDT 07/13/2009 12:36 PM CDT Sujatha Prado MD CHEMISTRY ORDERABLES Final Resu lt [facility] CLIA# [id number] [address] [place] [address] * (ABNORMAL) CBC WITH DIFFERENTIAL (07/13/2009 12:26 PM CDT) [facility] RDW 16.4(H) 11.5 - 14.5 % [facility] WBC 8.8 4.0 - 9.8 K/uL [facility] MCH 36.7(H) 27.2 - 32.6 pg [facility] MPV 10.1 9.3 - 12.4 fL [facility] HEMATOCRIT 39.9 35.5 - 44.0 % [facility] RDW-STDEV 63.0(H) 37.1 - 48.7 fL [facility] RBC 3.73(L) 3.90 - 4.90 M/uL [facility] MCHC 34.3 31.5 - 35.5 % [facility] MCV 107.0(H) 82.0 - 99.0 fL [facility] PLATELETS 380(H) 140 - 350 K/uL [facility] HEMOGLOBIN 13.7 11.8 - 14.8 g/dL [facility] LYMPHOCYTES 7(L) 16 - 45 % [facility] LYMPHOCYTE ABSOLUTE 0.60(L) 0.70 - 4.50 K/uL [facility] BASOPHILS 0 0 - 2 % [facility] BASOPHILS ABSOLUTE 0.02 0.00 - 0.20 K/uL [facility] MONOCYTES 2(L) 3 - 13 % [facility] MONOCYTE ABSOLUTE 0.18 0.10 - 1.30 K/uL [facility] NEUTROPHILS 91(H) 45 - 70 % [facility] NEUTROPHIL ABSOLUTE 7.94(H) 1.90 - 7.00 K/uL [facility] EOSINOPHILS 0 0 - 7 % [facility] EOSINOPHIL ABSOLUTE 0.01 0.00 - 0.70 K/uL [facility] Blood specimen (specimen) 07/13/2009 12:26 PM CDT 07/13/2009 12:36 PM CDT Sujatha Prado MD HEMATOLOGY ORDERABLES Edited [facility] CLIA# [id number] [address] [place] [address] documented in this encounter Visit Diagnoses Diagnosis Regional enteritis of unspecified site (CMS/HCC) Regional enteritis of unspecified site documented in this encounter Care Teams Customer Service Coordinator Relationship Specialty Start Date End Date Tessy Francois DO [address] [place] [address] PCP - General 11/17/15 documented as of this encounter
--- OUTSIDE RECORDS SUMMARY | 2025-01-06 23:07 | XMS_ITS | Encounter Summary ---
Author Organization [employer] Address [address] [place] [address] Care Team Providers Care Universal Grinder Operator Name Role Phone Tessy Francois DO Primary Care Provider [phone] Encounter Details Date Type Department Care Team (Late st Contact Info) Description 08/28/2007 Outpatient Historical [facility] [place] [address] [address] [place] [address] Other Chest Pain (Primary Dx) Social History Tobacco Use Types Packs/Day Years Used Date Smoking Tobacco: Never Assessed Comments Unknown Sex and Gender Information Value Date Recorded Sex Assigned at Not on file 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 Gender Identity Not on file Sexual Orientation Not on file documented as of this encounter Plan of Treatment Not on file documented as of this encounter Procedures Procedure Name Priority Date/Time Associated Diagnosis Comments HIGH SENSITIVITY CRP Routine 08/29/2007 6:00 AM CDT TSH Routine 08/29/2007 6:00 AM CDT PHOSPHORUS Routine 08/29/2007 6:00 AM CDT MAGNESIUM LEVEL Routine 08/29/2007 6:00 AM CDT LIPID PANEL Routine 08/29/2007 6:00 AM CDT TROPONIN (W/REFLEX CKMB/CK) Routine 08/28/2007 11:35 PM CDT HCG QUALITATIVE, URINE Routine 7:00 PM CDT TROPONIN (W/REFLEX CKMB/CK) Routine 08/28/2007 5:13 PM CDT TROPONIN (W/REFLEX CKMB/CK) Routine 08/28/2007 2:52 PM CDT TROPONIN (W/REFLEX CKMB/CK) Routine 08/27/2007 5:15 PM CDT CBC WITH DIFFERENTIAL Routine 08/27/2007 5:15 PM CDT CBC WITH DIFFERENTIAL Routine 08/27/2007 5:15 PM CDT COMPREHENSIVE METABOLIC PANEL Routine 08/27/2007 5:15 PM CDT documented in this encounter Results * (ABNORMAL) HIGH SENSITIVITY CRP (08/29/2007 6:00 AM CDT) CRP, HIGHLY SENSITIVE 13.3(H) <=3.0 mg/L INTERFACE SYSTEM Comment: CARDIOVASCULAR RISK ACCORDING TO AHA/CDC GUIDELINES FOR AGES >17 YEARS: Cardio CRP RISK ACCORDING TO AHA/CDC GUIDELINES <1.0 mg/L Low Cardiovascular Risk 1.0 - 3.0 mg/L Average Cardiovascular Risk 3.1 - 10.0 mg/L High Cardiovascular Risk > 10.0 mg/L Persistent Elevations may represent Non-Cardiovascular Inflammation 08/29/2007 6:00 AM CDT Martha Bullard MD CHEMISTRY ORDERABLES Edite d INTERFACE SYSTEM Refer to clinic/hospital department * TSH (08/29/2007 6:00 AM CDT) TSH 3.02 0.27 - 4.20 uU/mL INTERFACE SYSTEM 08/29/2007 6:00 AM CDT us [employer] Ying CHEMISTRY ORDERABLES Edited Performing Organization Address [facility] de Phone Number INTERFACE SYSTEM Refer to clinic/hospital department * (ABNORMAL) LIPID PANEL (08/29/2007 6:00 AM CDT) CHOLESTEROL 182 100 - 199 mg/dL INTERFACE SYSTEM TRIGLYCERIDE 115 10 - 149 mg/dL INTERFACE SYSTEM HDL 60(H) 40 - 59 mg/dL INTERFACE SYSTEM CHOL/HDL RATIO 3.0 2.0 - 5.0 INTER FACE SYSTEM LDL CALCULATED 99 <=99 mg/dL INTERFACE SYSTEM LIPID PANEL COMMENT See Below INTERFACE SYSTEM Comment: The adult ATP and pediatric NCEP classifications for lipids are available on the [facility] Intranet at: [email or web address] Select: Lab Policies and Procedures,Current Select: Lipid Panel Interpretation 08/29/2007 6:00 AM CDT us Vijai[employer]hunti Ying CHEMISTRY ORDERABLES Edited Performing Organization Address [facility] de Phone Number INTERFACE SYSTEM Refer to clinic/hospital department * PHOSPHORUS (08/29/2007 6:00 AM CDT) PHOSPHORUS 4.0 2.5 - 4.5 mg/dL INTERFACE SYSTEM 08/29/2007 6:00 AM CDT us [employer] Ying CHEMISTRY ORDERABLES Edited Performing Organization Address City/[facility] Co de Phone Number INTERFACE SYSTEM Refer to clinic/hospital department * MAGNESIUM LEVEL (08/29/2007 6:00 AM CDT) MAGNESIUM 2.2 1.5 - 2.5 mg/dL INTERFACE SYSTEM 08/29/2007 6:00 AM CDT us [employer] Ying CHEMISTRY ORDERABLES Edited Performing Organization Address City/State/[facility] de Phone Number INTERFACE SYSTEM Refer to clinic/hospital department * TROPONIN (W/REFLEX CKMB/CK) (08/28/2007 11:35 PM CDT) TROPONIN T 0.01 <=0.03 ng/mL INTERFACE SYSTEM TROPONIN T INTERP Negative INTERFACE SYSTEM 08/28/2007 11:3 5 PM CDT Viangel Ying CHEMISTRY ORDERABLES Edited Performing Organization Address [facility] de Phone Number INTERFACE SYSTEM Refer to clinic/hospital department * BETA HCG QUALITATIVE, URINE (08/28/2007 7:00 PM CDT) HCG QUAL URINE Negative Negative INTERFACE SYSTEM SPECIFIC GRAVITY UA 1.005 1.001 - 1.035 INTERFACE SYSTEM HCG QUAL URINE COMMENT See Below. INTERFACE SYSTEM Comment:Urine resu lts may be falsely negative due to low specific gravity. 08/28/2007 7:00 PM CDT Martha Bullard MD URINE ORDERABLES Edited Performing Organization Address [facility] Phone Number INTERFACE SYSTEM Refer to clinic/hospital department * TROPONIN (W/REFLEX CKMB/CK) (08/28/2007 5:13 PM CDT) TROPONIN T <0.01 <=0.03 ng/mL INTERFACE SYSTEM TROPONIN T INTERP Negative INTERFACE SYSTEM 08/28/2007 5:13 PM CDT Haley Ying CHEMISTRY ORDERABLES Edited Performing Organization Address [facility] de Phone Number INTERFACE SYSTEM Refer to clinic/hospital department * TROPONIN (W/REFLEX CKMB/CK) (08/28/2007 2:52 PM CDT) TROPONIN T <0.01 <=0.03 ng/mL INTERFACE SYSTEM TROPONIN T INTERP Negative INTERFACE SYSTEM 08/28/2007 2:52 PM CDT Ajsánchez Ying CHEMISTRY ORDERABLES Edited Performing Organization Address City/[facility] Co de Phone Number INTERFACE SYSTEM Refer to clinic/hospital department * CBC WITH DIFFERENTIAL (08/27/2007 5:15 PM CDT) NEUTROPHILS 62 45 - 70 % INTERFAC E SYSTEM LYMPHOCYTES 29 16 - 45 % INTERFAC E SYSTEM MONOCYTES 6 3 - 13 % INTERFACE SYSTEM EOSINOPHILS 3 0 - 7 % INTERFAC E SYSTEM BASOPHILS 0 0 - 2 % INTERFACE SYSTEM NEUTROPHIL ABSOLUTE 5.61 1.90 - 7.00 K/uL INTERFACE SYSTEM LYMPHOCYTE ABSOLUTE 2.62 0.70 - 4.50 K/uL INTERFACE SYSTEM MONOCYTE ABSOLUTE 0.54 0.10 - 1.30 K/uL INTERFACE SYSTEM EOSINOPHIL ABSOLUTE 0.24 0.00 - 0.70 K/uL INTERFACE SYSTEM BASOPHILS ABSOLUTE 0.04 0.00 - 0.20 K/uL INTERFACE SYSTEM 08/27/2007 5:15 PM CDT Manjit Mendiola MD HEMATOLOGY ORDERABLES Edited Performing Organization Address [facility] de Phone Number INTERFACE SYSTEM Refer to clinic/hospital department * (ABNORMAL) CBC WITH DIFFERENTIAL (08/27/2007 5:15 PM CDT) Pathologist [facility] WBC 9.1 4.0 - 9.8 K/uL INTERFACE SYSTEM RBC 4.51 3.90 - 4.90 M/uL INTERFACE SYSTEM HEMOGLOBIN 14.3 11.8 - 14.8 g/dL INTERFACE SYSTEM HEMATOCRIT 41.9 35.5 - 44.0 % INTERFACE SYSTEM MCV 92.9 82.0 - 99.0 fL INTERFACE SYSTEM MCH 31.7 27.2 - 32.6 pg INTERFACE SYSTEM MCHC 34.1 31.5 - 35.5 % INTERFACE SYSTEM RDW 13.3 11.5 - 14.5 % INTERFACE SYSTEM RDW-STDEV 45.1 37.1 - 48.7 fL INTERFACE SYSTEM PLATELETS 351(H) 140 - 350 K/uL INTERFACE SYSTEM MPV 10.2 9.3 - 12.4 fL INTERFACE SYSTEM 08/27/2007 5:15 PM CDT Manjit Mendiola MD HEMATOLOGY ORDERABLES Edited INTERFACE SYSTEM Refer to clinic/hospital department * (ABNORMAL) COMPREHENSIVE METABOLIC PANEL (08/27/2007 5:15 PM CDT) GLUCOSE 113(H) 65 - 99 mg/dL INTERFACE SYSTEM CREATININE 0.79 0.51 - 0.95 mg/dL INTERFACE SYSTEM CALCIUM 9.0 8.4 - 10.2 mg/dL INTERFACE SYSTEM ALKALINE PHOSPHATASE 87 35 - 104 U/L INTERFACE SYSTEM AST 21 12 - 32 U/L INTERFACE SYSTEM ALT 13 0 - 31 U/L INTERFACE SYSTEM TOTAL PROTEIN 7.4 6.3 - 8.6 g/dL INTERFACE SYSTEM ALBUMIN 4.2 3.4 - 4.8 g/dL INTERFACE SYSTEM BILIRUBIN TOTAL 0.2 0.2 - 1.0 mg/dL INTERFACE SYSTEM BUN 8 6 - 20 mg/dL INTERFACE SYSTEM SODIUM 136 135 - 145 mmol/L INTERFACE SYSTEM POTASSIUM 3.5 3.5 - 4.9 mmol/L INTERFACE SYSTEM CHLORIDE 101 96 - 108 mmol/L INTERFACE SYSTEM CO2 27 22 - 30 mmol/L INTERFACE SYSTEM GFR, >60 >=60 mL/min/1. 7 sq meter INTERFACE SYSTEM GFR >60 >=60 mL/min/1. 7 sq meter INTERFACE SYSTEM Comment: Estimated GFR rate interpretative information for both Americans and non- Americans is available on the [facility] Intranet at: [email or web address] Select: Lab Policies and Procedures Select: Reference Ranges - GFR 08/27/2007 5:15 PM CDT Manjit Mendiola MD CHEMISTRY ORDERABLES Edited INTERFACE SYSTEM Refer to clinic/hospital department * TROPONIN (W/REFLEX CKMB/CK) (08/27/2007 5:15 PM CDT) TROPONIN T <0.01 <=0.03 ng/mL INTERFACE SYSTEM TROPONIN T INTERP Negative INTERFACE SYSTEM 08/27/2007 5:15 PM CDT us Manjit Mendiola MD CHEMISTRY ORDERABLES Edited INTERFACE SYSTEM Refer to clinic/hospital department documented in this encounter Visit Diagnoses Diagnosis Other chest pain- Primary documented in this encounter Care Teams Universal Grinder Operator Relationship Specialty Start Date End Date Tessy Francois DO [address] [place] [address] PCP - General 11/17/15 documented as of this encounter
--- OUTSIDE RECORDS SUMMARY | 2025-01-06 23:07 | XMS_ITS | Referral Summary ---
Author Organization [facility] [employer] Address [address] [place] [address] Care Team Providers Care Showcase Trimmer Name Role Phone Dillan Woody MD Primary Care Provider Source Comments [facility] [employer],non-owned Affiliates and Associated Physician Practices is amultiple site organization consisting of ambulatory clinics and hospital sitesin [place], [place], [place]. This disclosure is being madepursuant to the Care Everywhere program and may not contain all information available regarding this patient. Last updated 18.[facility] [employer] Allergies Active Allergy Reactions Criticality Noted Date Comments Ciprofloxacin 01/05/2011 Rash at infusion site immediately upon adminitration 01/05/11 Cephalexin Anaphylaxis High 12/19/2010 Medications * Be aware that medications may not be up to date on this document. Alwaysverify current medications with the patient. Medication Sig Dispensed Refills Start Date End Date Status ASACOL PO Take 1,200 Caps by mouth 2 times daily. Active azathioprine (IMURAN) 50 MG tablet Take 125 mg by mouth daily. Active Cyanocobalamin (NASCOBAL) 500 MCG/0.1ML SOLN [place] 1 Squirt into the nose every 7 days. Active Meloxicam (MOBIC PO) Take by mouth. Active estradiol (VIVELLE-DOT) 0.1 MG/24HR patch 1 Patch Two times a week. 8 Patch 11 02/26/2012 Active FLUoxetine (PROZAC) 20 MG capsule Take 1 Cap by mouth once daily. 30 Cap 11 03/13/2012 Active Active Problems Problem Noted Date Diagnosed Date Status post endometrial ablation 03/07/2010 Crohn disease 03/07/2010 Screening for cervical cancer 03/22/2009 Overview (12/18/2010): 03/07/2010, 11/23/08 WNL Other screening mammogram 03/22/2009 Overview (03/22/2009): 04/25/06 R breast neg Screen for colon cancer 03/22/2009 Overview (03/22/2009): 10/09 Resolved Problems Problem Noted Date Diagnosed Date Resolved Date Fibroid, uterine 01/05/2011 01/07/2011 DUB (dysfunctional uterine bleeding) 03/07/2010 01/07/2011 Immunizations Name Administration Dates Next Due TDAP (7yrs+) 06/01/2008 Social History Tobacco Use Types Packs/Day Years Used Date Smoking Tobacco: Every Day Cigarettes Smokeless Tobacco: Never Alcohol Use Standard Drinks/Week Comments Yes 0 (1 standard drink = 0.6 oz pur e alcohol) Occasional Sex and Gender Information Value Date Recorded Sex Assigned at Not on file Gender Identity Not on file Sexual Orientation Not on file Last Filed Vital Signs Vital Sign Reading Time Taken Comments Blood Pressure 148/90 02/26/2012 4:37 PM CDT Pulse 83 02/26/2012 4:37 PM CDT Temperature 36.3 C (97.3 F) 01/07/2011 8:00 AM 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 TEST 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 Respiratory Rate 18 01/07/2011 8:00 AM TOLL TEST DESK WORKER Oxygen Saturation 100% 01/05/2011 8:00 PM TOLL TEST DESK WORKER Inhaled Oxygen Concentration - - Weight 73.9 kg (163 lb) 02/26/2012 4:37 PM CDT Height 176.5 cm (5' 9.5 ) 02/26/2012 4:37 PM CDT Body Mass Index 23.73 02/26/2012 4:37 PM CDT Plan of Treatment Not on file Procedures Procedure Name Priority Date/Time Associated Diagnosis Comments PAP IG RFLX HPV ASCU Routine 02/26/2012 4:39 PM CDT Routine gynecological examination MAMMOGRAPHY ORDER Routine 07/17/2011 from Last 3 Months or Most Recently Relevant to Health Maintenance Results * PAP SMEAR IG RFLX HPV ASCU (PO REF LAB) (02/26/2012 4:39 PM CDT) Diagnosis [facility] ACCOUNT BILL Comment: NEGATIVE FOR INTRAEPITHELIAL LESION AND MALIGNANCY. FUNGAL ORGANISMS MORPHOLOGICALLY CONSISTENT WITH MANDIE SPECIES ARE PRESENT. Specimen Adequacy [facility] ACCOUNT BILL Comment:Satisfactory for antonino caicedo. Clinician Provided ICD9 [facility] ACCOUNT BILL Comment:V72.31 ; Routine peg driver ecological examination Performed by [facility] ACCOUNT BILL Comment:Amanda Dejesus, Cyto technologist (ASCP) Comment . [facility] ACCOUNT BILL Note [facility] ACCOUNT BILL Comment: The Pap smear is a screening test designed to aid in the detection of premalignant and malignant conditions of the uterine cervix. It is not a diagnostic procedure and should not be used as the sole means of detecting cervical cancer. Both false-positive and false-negative reports do occur. . IGLBP CPT Code Automation [facility] ACCOUNT BILL Comment: This liquid based ThinPrep(R) pap test was screened with the use of an image guided system. Note [facility] ACCOUNT BILL Comment: The HPV DNA reflex criteria were not met with this specimen result therefore, no HPV testing was performed. . MICROSCOPIC CYTOLOGIC EXAMINATION OF SMEAR OF SPECIMEN FROM FEMALE GENITAL TRACT PREPARED USING PAPANICOLAOU TECHNIQUE / Unknown 02/26/2012 4:39 PM CDT 02/28/2012 11:13 AM CDT Narrative [facility] ACCOUNT BILL - 02/29/2012 2:17 PM CDT No. of containers..01 CYTYC Thin Prep Vial Resulting Agency Comment [facility] [id number] Rock Bullock MD LAB - PATHOLOGY/CYTO LOGY ORDERABLES [facility] ACCOUNT BILL * MAMMOGRAPHY ORDER (07/17/2011) Anatomical Region Laterality Modality Other Rock Bullock MD MAMMO ORDERABLES from Last 3 Months or Most Recently Relevant to Health Maintenance Advance Directives * Full Code (Latest Code Status on File) Date Activated Date Inactivated Comments 01/05/2011 10:10 AM 01/07/2011 11:35 PM * Full Code Date Activated Date Inactivated Comments 01/05/2011 7:44 AM 01/05/2011 10:10 AM * Full Code Date Activated Date Inactivated Comments 01/03/2011 10:33 PM 01/04/2011 8:00 PM Care Teams Showcase Trimmer Relationship Specialty Start Date End Date Dillan Woody MD PCP - General Internal Medicine 02/26/12
--- OUTSIDE RECORDS SUMMARY | 2025-01-06 23:07 | XMS_ITS | Encounter Summary ---
Author Organization [facility] Address [address] [place] [address] Care Team Providers Care Manufacturing Intern Name Role Phone Priscila Tessydasha Mchugh Primary Care Provider [phone] Encounter Details Date Type Department Care Team (Latest Contact Info) Description 05/18/2009 Outpatient Historical HIS [facility] Sujatha Ledesma MD [address] [place] [address] Regional Enteritis of Unspecified Site (CMS/HCC) Social History Tobacco Use Types Packs/Day Years Used Date Smoking Tobacco: Never Assessed Comments Unknown Sex and Gender Information Value Date Recorded Sex Assigned at Not on file Legal Sex Female 5:28 AM MATERIAL COORDINATOR Gender Identity Not on file Sexual Orientation Not on file documented as of this encounter Plan of Treatment Not on file documented as of this encounter Procedures Procedure Name Priority Date/Time Associated Diagnosis Comments CBC WITH DIFFERENTIAL Routine 05/18/2009 4:50 PM CDT C-REACTIVE PROTEIN Routine 05/18/2009 4: 50 PM CDT COMPREHENSIVE METABOLIC PANEL Routine 05/18/2009 4:50 PM CDT documented in this encounter Results * (ABNORMAL) COMPREHENSIVE METABOLIC PANEL (05/18/2009 4:50 PM CDT) CALCIUM 9.6 8.6 - 10.2 mg/dL [facility] CHLORIDE 100 96 - 108 mmol/L [facility] ALBUMIN 4.4 3.4 - 4.8 g/dL [facility] CREATININE 0.67 0.51 - 0.95 mg/dL [facility] SODIUM 139 135 - 145 mmol/L [facility] ALT 13 0 - 31 U/L [facility] ALKALINE PHOSPHATASE 48 35 - 104 U/L [facility] BILIRUBIN TOTAL 0.4 0.2 - 1.0 mg/dL [facility] CO2 26 22 - 30 mmol/L [facility] TOTAL PROTEIN 7.2 6.3 - 8.6 g/dL [facility] POTASSIUM 4.0 3.5 - 4.9 mmol/L [facility] GLUCOSE 109(H) 65 - 99 mg/dL [facility] AST 15 12 - 32 U/L [facility] BUN 7 6 - 20 mg/dL [facility] GFR, >60 >=60 mL/min/1. 7 sq meter [facility] GFR >60 >=60 mL/min/1. 7 sq meter [facility] Comment: Modification of Diet in Renal Disease (MDRD) study formula. Estimated GFR rate interpretative information for both Americans and non- Americans is available on the [facility] Intranet at: [email or web address] Select: Lab Policies and Procedures Select: Reference Ranges - GFR 05/18/2009 4:50 PM CDT 05/18/2009 5:14 PM CDT us Sujatha Prado MD CHEMISTRY ORDERABLES Edited INTERFACE SYSTEM Refer to clinic/hospital department [facility] CLIA# [id number] [address] [place] [address] * C-REACTIVE PROTEIN (05/18/2009 4:50 PM CDT) [facility] CRP 0.5 0.0 - 0.8 mg/dL [facility] 05/18/2009 4:50 PM CDT 05/18/2009 5:14 PM CDT us Sujatha Prado MD CHEMISTRY ORDERABLES Final Resu lt INTERFACE SYSTEM Refer to clinic/hospital department [facility] CLIA# [id number] [address] [place] [address] * (ABNORMAL) CBC WITH DIFFERENTIAL (05/18/2009 4:50 PM CDT) [facility] RBC 3.59(L) 3.90 - 4.90 M/uL [facility] MCHC 33.9 31.5 - 35.5 % [facility] MCV 102.8(H) 82.0 - 99.0 fL [facility] PLATELETS 373(H) 140 - 350 K/uL [facility] HEMOGLOBIN 12.5 11.8 - 14.8 g/dL [facility] RDW 14.1 11.5 - 14.5 % [facility] WBC 8.3 4.0 - 9.8 K/uL [facility] MCH 34.8(H) 27.2 - 32.6 pg [facility] MPV 10.1 9.3 - 12.4 fL [facility] HEMATOCRIT 36.9 35.5 - 44.0 % [facility] RDW-STDEV 52.3(H) 37.1 - 48.7 fL [facility] MONOCYTES 7 3 - 13 % [facility] MONOCYTE ABSOLUTE 0.62 0.10 - 1.30 K/uL [facility] NEUTROPHILS 73(H) 45 - 70 % [facility] NEUTROPHIL ABSOLUTE 6.06 1.90 - 7.00 K/uL [facility] EOSINOPHILS 2 0 - 7 % [facility] EOSINOPHIL ABSOLUTE 0.16 0.00 - 0.70 K/uL [facility] LYMPHOCYTES 18 16 - 45 % [facility] LYMPHOCYTE ABSOLUTE 1.46 0.70 - 4.50 K/uL [facility] BASOPHILS 1 0 - 2 % [facility] BASOPHILS ABSOLUTE 0.04 0.00 - 0.20 K/uL [facility] 05/18/2009 4:50 PM CDT 05/18/2009 5:12 PM CDT us Sujatha Prado MD HEMATOLOGY ORDERABLES Edited INTERFACE SYSTEM Refer to clinic/hospital department [facility] CLIA# [id number] [address] [place] [address] documented in this encounter Visit Diagnoses Diagnosis Regional enteritis of unspecified site (CMS/HCC) Regional enteritis of unspecified site documented in this encounter Care Teams Manufacturing Intern Relationship Specialty Start Date End Date Tessy Francois DO [address] [place] [address] PCP - General 11/17/15 documented as of this encounter
--- OUTSIDE RECORDS SUMMARY | 2025-01-06 23:07 | XMS_ITS | Encounter Summary ---
Author Organization [employer] Address [address] [place] [address] Care Team Providers Care Note Teller Name Role Phone Tessy Francois DO Primary Care Provider [phone] Encounter Details Date Type Department Care Team (Late st Contact Info) Description 08/29/2007 Outpatient Historical [facility] ([facility]) [address] [place] [address] Tristan Hyman MD NO ADDRESS ON FILE Social History Tobacco Use Types Packs/Day Years Used Date Smoking Tobacco: Never Assessed Comments Unknown Sex and Gender Information Value Date Recorded Sex Assigned at Not on file Legal Sex Female 5:28 AM CHAUFFEUR Gender Identity Not on file Sexual Orientation Not on file documented as of this encounter Plan of Treatment Not on file documented as of this encounter Visit Diagnoses Not on filedocumented in this encounter Care Teams Note Teller Relationship Specialty Start Date End Date Tessy Francois DO [address] [place] [address] PCP - General 11/17/15 documented as of this encounter
--- OUTSIDE RECORDS SUMMARY | 2025-01-06 23:07 | XMS_ITS | Encounter Summary ---
Author Organization [facility] Address [address] [place] [address] Care Team Providers Care Electronic Imaging System Operator Name Role Phone Priscila Tessydasha Mchugh Primary Care Provider [phone] [phone] Encounter Details Date Type Department Care Team (Latest Contact Info) Description 03/10/2009 Outpatient Historical [facility] Sujatha Ledesma MD [address] [place] [address] Regional Enteritis of Unspecified Site (CMS/HCC) Social History Tobacco Use Types Packs/Day Years Used Date Smoking Tobacco: Never Assessed Comments Unknown Sex and Gender Information Value Date Recorded Sex Assigned at Not on file Legal Sex Female 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 Gender Identity Not on file Sexual Orientation Not on file documented as of this encounter Plan of Treatment Not on file documented as of this encounter Procedures Procedure Name Priority Date/Time Associated Diagnosis Comments CBC WITH DIFFERENTIAL Routine 03/10/2009 2:33 PM CDT COMPREHENSIVE METABOLIC PANEL Routine 03/10/2009 2:33 PM CDT documented in this encounter Results * (ABNORMAL) COMPREHENSIVE METABOLIC PANEL (03/10/2009 2:33 PM CDT) CALCIUM 9.5 8.6 - 10.2 mg/dL [facility] CHLORIDE 101 96 - 108 mmol/L [facility] ALBUMIN 4.5 3.4 - 4.8 g/dL [facility] CREATININE 0.77 0.51 - 0.95 mg/dL [facility] SODIUM 138 135 - 145 mmol/L [facility] ALT 46(H) 0 - 31 U/L [facility] ALKALINE PHOSPHATASE 54 35 - 104 U/L [facility] BILIRUBIN TOTAL 0.3 0.2 - 1.0 mg/dL [facility] CO2 28 22 - 30 mmol/L [facility] TOTAL PROTEIN 7.2 6.3 - 8.6 g/dL [facility] POTASSIUM 3.9 3.5 - 4.9 mmol/L [facility] GLUCOSE 96 65 - 99 mg/dL [facility] AST 33(H) 12 - 32 U/L [facility] BUN 7 6 - 20 mg/dL [facility] GFR, >60 >=60 mL/min/1.7 sq meter [facility] GFR >60 >=60 mL/min/1.7 sq meter [facility] Comment: Modification of Diet in Renal Disease (MDRD) study formula. Estimated GFR rate interpretative information for both Americans and non- Americans is available on the [facility] Intranet at: [email or web address] Select: Lab Policies and Procedures Select: Reference Ranges - GFR Blood specimen (specimen) 03/10/2009 2:33 PM CDT 03/10/2009 3:22 PM CDT Sujatha Prado MD CHEMISTRY ORDERABLES Edited INTERFACE SYSTEM Refer to clinic/hospital department [facility] CLIA# [id number] [address] [place] [address] * (ABNORMAL) CBC WITH DIFFERENTIAL (03/10/2009 2:33 PM CDT) RBC 4.13 3.90 - 4.90 M/uL [facility] MCHC 32.7 31.5 - 35.5 % [facility] MCV 101.5(H) 82.0 - 99.0 fL [facility] PLATELETS 315 140 - 350 K/uL [facility] HEMOGLOBIN 13.7 11.8 - 14.8 g/dL [facility] RDW 14.3 11.5 - 14.5 % [facility] WBC 7.6 4.0 - 9.8 K/uL [facility] MCH 33.2(H) 27.2 - 32.6 pg [facility] MPV 10.5 9.3 - 12.4 fL [facility] HEMATOCRIT 41.9 35.5 - 44.0 % [facility] RDW-STDEV 52.8(H) 37.1 - 48.7 fL [facility] NEUTROPHILS 67 45 - 70 % [facility] NEUTROPHIL ABSOLUTE 5.13 1.90 - 7.00 K/uL [facility] EOSINOPHILS 2 0 - 7 % [facility] EOSINOPHIL ABSOLUTE 0.17 0.00 - 0.70 K/uL [facility] LYMPHOCYTES 21 16 - 45 % [facility] LYMPHOCYTE ABSOLUTE 1.60 0.70 - 4.50 K/uL [facility] BASOPHILS 1 0 - 2 % [facility] BASOPHILS ABSOLUTE 0.05 0.00 - 0.20 K/uL [facility] MONOCYTES 9 3 - 13 % [facility] MONOCYTE ABSOLUTE 0.66 0.10 - 1.30 K/uL [facility] Blood specimen (specimen) 03/10/2009 2:33 PM CDT 03/10/2009 3:24 PM CDT us Sujatha Prado MD HEMATOLOGY ORDERABLES Edited INTERFACE SYSTEM Refer to clinic/hospital department [facility] CLIA# [id number] [address] [place] [address] documented in this encounter Visit Diagnoses Diagnosis Regional enteritis of unspecified site (CMS/HCC) Regional enteritis of unspecified site documented in this encounter Care Teams Electronic Imaging System Operator Relationship Specialty Start Date End Date Tessy Francois DO [address] [place] [address] PCP - General 11/17/15 documented as of this encounter
--- OUTSIDE RECORDS SUMMARY | 2025-01-06 23:07 | XMS_ITS | Encounter Summary ---
Author Organization [facility] Address [address] [place] [address] Care Team Providers Care Executive Relations Specialist Name Role Phone FrancoisTessy verduzco Primary Care Provider [phone] Encounter Details Date Type Department Care Team (Latest Contact Info) Description 12/06/2008 Outpatient Historical [facility] Sujatha Ledesma MD [address] [place] [address] Regional Enteritis of Large Intestine (CMS/HCC) Social History Tobacco Use Types Packs/Day Years Used Date Smoking Tobacco: Never Assessed Comments Unknown Sex and Gender Information Value Date Recorded Sex Assigned at Not on file Legal Sex Female 5:28 AM BAIL BONDING AGENT Gender Identity Not on file Sexual Orientation Not on file documented as of this encounter Plan of Treatment Not on file documented as of this encounter Procedures Procedure Name Priority Date/Time Associated Diagnosis Comments MISCELLANEOUS LAB TEST Routine 9 10:17 AM BAIL BONDING AGENT documented in this encounter Results * MISCELLANEOUS LAB TEST (12/06/2008 10:17 AM BAIL BONDING AGENT) TEST NAME TPMT [facility] SPECIMEN TYPE Blood [facility] MISCELLANEOUS LAB TEST Name of Test: TPMT Test Result: TPMT*1/TPMT*1 Alleles present are associated with Normal Enzyme Activity Reference Range: TPMT*1/TPMT*1 Test Performed By: [employer] [place], [place] [facility] Specimen of unknown material (specimen) 12/06/2008 10:17 AM BAIL BONDING AGENT 12/06/2008 10:34 AM BAIL BONDING AGENT Narrative INTERFACE SYSTEM - 12/09/2008 8:39 AM BAIL BONDING AGENT Name of test:tpmt genotype us Sujatha Prado MD CHEMISTRY ORDERABLES Edited INTERFACE SYSTEM Refer to clinic/hospital department [facility] CLIA# [id number] [address] [place] [address] documented in this encounter Visit Diagnoses Diagnosis Regional enteritis of large intestine (CMS/HCC) Regional enteritis of large intestine documented in this encounter Care Teams Executive Relations Specialist Relationship Specialty Start Date End Date Tessy Francois DO [address] [place] [address] PCP - General 11/17/15 documented as of this encounter
--- OUTSIDE RECORDS SUMMARY | 2025-01-06 23:07 | XMS_ITS | Encounter Summary ---
Author Organization [facility] Address [address] [place] [address] Care Team Providers Care Furniture Sales Associate Name Role Phone Priscila Tessydasha Mchugh Primary Care Provider [phone] Encounter Details Date Type Department Care Team (Latest Contact Info) Description 04/18/2009 Outpatient Historical [facility] Sujatha Ledesma MD [address] [place] [address] Regional Enteritis of Unspecified Site (CMS/HCC) Social History Tobacco Use Types Packs/Day Years Used Date Smoking Tobacco: Never Assessed Comments Unknown Sex and Gender Information Value Date Recorded Sex Assigned at Not on file Legal Sex Female 5:28 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 Gender Identity Not on file Sexual Orientation Not on file documented as of this encounter Plan of Treatment Not on file documented as of this encounter Procedures Procedure Name Priority Date/Time Associated Diagnosis Comments CBC WITH DIFFERENTIAL Routine 04/18/2009 1:13 PM CDT COMPREHENSIVE METABOLIC PANEL Routine 04/18/2009 1:13 PM CDT documented in this encounter Results * (ABNORMAL) COMPREHENSIVE METABOLIC PANEL (04/18/2009 1:13 PM CDT) GLUCOSE 151(H) 65 - 99 mg/dL [facility] AST 17 12 - 32 U/L [facility] BUN 11 6 - 20 mg/dL [facility] CALCIUM 9.2 8.6 - 10.2 mg/dL [facility] CHLORIDE 102 96 - 108 mmol/L [facility] ALBUMIN 4.1 3.4 - 4.8 g/dL [facility] CREATININE 0.67 0.51 - 0.95 mg/dL [facility] SODIUM 138 135 - 145 mmol/L [facility] ALT 14 0 - 31 U/L [facility] ALKALINE PHOSPHATASE 61 35 - 104 U/L [facility] BILIRUBIN TOTAL 0.4 0.2 - 1.0 mg/dL [facility] CO2 25 22 - 30 mmol/L [facility] TOTAL PROTEIN 7.0 6.3 - 8.6 g/dL [facility] POTASSIUM 3.6 3.5 - 4.9 mmol/L [facility] GFR, >60 >=60 mL/min/1. 7 sq meter [facility] GFR >60 >=60 mL/min/1. 7 sq meter [facility] Comment: Modification of Diet in Renal Disease (MDRD) study formula. Estimated GFR rate interpretative information for both Americans and non- Americans is available on the [facility] Intranet at: [email or web address] Select: Lab Policies and Procedures Select: Reference Ranges - GFR Blood specimen (specimen) 04/18/2009 1:13 PM CDT 04/18/2009 2:00 PM CDT Sujatha Prado MD CHEMISTRY ORDERABLES Edited INTERFACE SYSTEM Refer to clinic/hospital department [facility] CLIA# [id number] [address] [place] [address] * (ABNORMAL) CBC WITH DIFFERENTIAL (04/18/2009 1:13 PM CDT) MCV 101.5(H) 82.0 - 99.0 fL [facility] PLATELETS 319 140 - 350 K/uL [facility] HEMOGLOBIN 13.3 11.8 - 14.8 g/dL [facility] RDW 14.1 11.5 - 14.5 % [facility] WBC 7.2 4.0 - 9.8 K/uL [facility] MCH 33.9(H) 27.2 - 32.6 pg [facility] MPV 10.3 9.3 - 12.4 fL [facility] HEMATOCRIT 39.8 35.5 - 44.0 % [facility] RDW-STDEV 52.2(H) 37.1 - 48.7 fL [facility] RBC 3.92 3.90 - 4.90 M/uL [facility] MCHC 33.4 31.5 - 35.5 % [facility] EOSINOPHILS 1 0 - 7 % [facility] EOSINOPHIL ABSOLUTE 0.10 0.00 - 0.70 K/uL [facility] LYMPHOCYTES 21 16 - 45 % [facility] LYMPHOCYTE ABSOLUTE 1.50 0.70 - 4.50 K/uL [facility] BASOPHILS 0 0 - 2 % [facility] BASOPHILS ABSOLUTE 0.03 0.00 - 0.20 K/uL [facility] MONOCYTES 5 3 - 13 % [facility] MONOCYTE ABSOLUTE 0.37 0.10 - 1.30 K/uL [facility] NEUTROPHILS 72(H) 45 - 70 % [facility] NEUTROPHIL ABSOLUTE 5.15 1.90 - 7.00 K/uL [facility] Blood specimen (specimen) 04/18/2009 1:13 PM CDT 04/18/2009 1:53 PM CDT us Sujatha Prado MD HEMATOLOGY ORDERABLES Edited INTERFACE SYSTEM Refer to clinic/hospital department [facility] CLIA# [id number] [address] [place] [address] documented in this encounter Visit Diagnoses Diagnosis Regional enteritis of unspecified site (CMS/HCC) Regional enteritis of unspecified site documented in this encounter Care Teams Furniture Sales Associate Relationship Specialty Start Date End Date Tessy Francois DO [address] [place] [address] PCP - General 11/17/15 documented as of this encounter
--- OUTSIDE RECORDS SUMMARY | 2025-01-06 23:07 | XMS_ITS | Encounter Summary ---
Author Organization [facility] Address [address] [place] [address] Care Team Providers Care Mold Cleaning And Storage Supervisor Name Role Phone Priscila Tessydasha Mchugh Primary Care Provider [phone] Encounter Details Date Type Department Care Team (Latest Contact Info) Description 01/26/2009 Outpatient Historical [facility] Sujatha Ledesma MD [address] [place] [address] Regional Enteritis of Unspecified Site (CMS/HCC) Social History Tobacco Use Types Packs/Day Years Used Date Smoking Tobacco: Never Assessed Comments Unknown Sex and Gender Information Value Date Recorded Sex Assigned at Not on file Legal Sex Female 5:28 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 TILE 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 Gender Identity Not on file Sexual Orientation Not on file documented as of this encounter Plan of Treatment Not on file documented as of this encounter Procedures Procedure Name Priority Date/Time Associated Diagnosis Comments CBC WITH DIFFERENTIAL Routine 01/26/2009 4:41 PM REFRACTORY TILE HELPER documented in this encounter Results * (ABNORMAL) CBC WITH DIFFERENTIAL (01/26/2009 4:41 PM REFRACTORY TILE HELPER) RBC 4.32 3.90 - 4.90 M/uL [facility] MCHC 33.2 31.5 - 35.5 % [facility] MCV 97.0 82.0 - 99.0 fL [facility] PLATELETS 317 140 - 350 K/uL [facility] HEMOGLOBIN 13.9 11.8 - 14.8 g/dL [facility] RDW 13.2 11.5 - 14.5 % [facility] WBC 12.1(H) 4.0 - 9.8 K/uL [facility] MCH 32.2 27.2 - 32.6 pg [facility] MPV 10.5 9.3 - 12.4 fL [facility] HEMATOCRIT 41.9 35.5 - 44.0 % [facility] RDW-STDEV 46.5 37.1 - 48.7 fL [facility] MONOCYTE ABSOLUTE 0.82 0.10 - 1.30 K/uL [facility] LYMPHOCYTES 16 16 - 45 % [facility] NEUTROPHIL ABSOLUTE 9.16(H) 1.90 - 7.00 K/uL [facility] NEUTROPHILS 76(H) 45 - 70 % [facility] EOSINOPHILS 1 0 - 7 % [facility] EOSINOPHIL ABSOLUTE 0.06 0.00 - 0.70 K/uL [facility] LYMPHOCYTE ABSOLUTE 1.96 0.70 - 4.50 K/uL [facility] BASOPHILS 0 0 - 2 % [facility] BASOPHILS ABSOLUTE 0.05 0.00 - 0.20 K/uL [facility] MONOCYTES 7 3 - 13 % [facility] Blood specimen (specimen) 01/26/2009 4:41 PM REFRACTORY TILE HELPER 01/26/2009 5:07 PM REFRACTORY TILE HELPER us Sujatha Prado MD HEMATOLOGY ORDERABLES Edited INTERFACE SYSTEM Refer to clinic/hospital department [facility] CLIA# [id number] [address] [place] [address] documented in this encounter Visit Diagnoses Diagnosis Regional enteritis of unspecified site (CMS/HCC) Regional enteritis of unspecified site documented in this encounter Care Teams Mold Cleaning And Storage Supervisor Relationship Specialty Start Date End Date Tessy Francois DO [address] [place] [id number] PCP - General 11/17/15 documented as of this encounter
--- OUTSIDE RECORDS SUMMARY | 2025-01-06 23:07 | XMS_ITS | Encounter Summary ---
Author Organization [facility] Address 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 Gender Identity Not on file Sexual Orientation Not on file documented as of this encounter Plan of Treatment Not on file documented as of this encounter Procedures Procedure Name Priority Date/Time Associated Diagnosis Comments XR SMALL BOWEL Timed Study 09/28/2008 8:15 AM CDT CBC WITH DIFFERENTIAL Routine 09/24/2008 2:27 PM CDT COMPREHENSIVE METABOLIC PANEL Routine 09/24/2008 2:[address] ABDOMEN PELVIS W CONTRAST Routine 09/24/2008 2:12 PM CDT POC CREATININE Routine 09/24/2008 2:05 PM CDT documented in this encounter Results * XR SMALL BOWEL (09/28/2008 8:15 AM CDT) Anatomical Region Laterality Modality Abdomen Other 09/28/2008 8:15 AM CDT Narrative 09/28/2008 11:12 AM CDT [facility] [address] [place], [place] [address] Admit Date: 09/24/2008 ZEINA COLE Sex: F Admit Prov: NADIA SARABIA Date: 1960 Primary Care Prov: NADIA SARABIA CMRN: [id number] Room: [facility] SSN: [id number] IMAGING SERVICES Ordering Prov: N/A Accession Number: [id number] Interpretation SMALL BOWEL SERIES, 09/28/2008 Clinical History: Crohn's disease, right lower quadrant abdominal pain, possible jejunal intussusception seen on recent abdominal CT. Findings: A preliminary abdominal squad leader radiograph is not remarkable. Following oral administration of barium, abdominal radiographs were obtained up to 30 minutes, at which time definitive contrast is seen within the right colon. Reference is made to a recent abnormal abdominal CT report of 09/24/2008. The small bowel appears normal in caliber throughout, with a normal-appearing mucosal pattern. No intrinsic or extrinsic small bowel radiographic abnormalities are seen. Specifically, no evidence of jejunal intussusception is seen on today's exam. Also, objective evidence of inflammatory change involving the terminal ileum is not seen. Impression: Currently normal-appearing small bowel radiographic findings. No current evidence of jejunal intussusception or inflammatory type change involving the terminal ileum. . Dictated by: TRISTAN CATES 09/28/2008 10:06 Electronically signed by: TRISTAN CATES 09/28/2008 11:11 Transcribed: 09/28/2008 10:49 DKT Procedure Note Tristan Cates MD - 09/28/2008 [facility] [address] [place], [place] [address] Admit Date: 09/24/2008 COLE ZEINA Carolina Sex: F Admit Prov: NADIA SARABIA Date: 1960 Primary Care Prov: NADIA SARABIA CMRN: [id number] Room: [facility] SSN: [id number] IMAGING SERVICES Ordering Prov: N/A Interpretation SMALL BOWEL SERIES, 09/28/2008 Clinical History: Crohn's disease, right lower quadrant abdominalpain, possible jejunal intussusception seen on recent abdominal CT. Findings: A preliminary abdominal squad leader radiograph is notremarkable. Following oral administration of barium, abdominal radiographs were obtained up to 30 minutes, at which time definitive contrast is seenwithin the right colon. Reference is made to a recent abnormal abdominal CTreport of 09/24/2008. The small bowel appears normal in caliber throughout,with a normal-appearing mucosal pattern. No intrinsic or extrinsic smallbowel radiographic abnormalities are seen. Specifically, no evidence ofjejunal intussusception is seen on today's exam. Also, objective evidenceof inflammatory change involving the terminal ileum is not seen. Impression: Currently normal-appearing small bowel radiographic findings. No current evidence of jejunal intussusception or inflammatory typechange involving the terminal ileum. . Dictated by: TRISTAN CATES 09/28/2008 10:06 Electronically signed by: TRISTAN CATES 09/28/2008 11:11 Transcribed: 09/28/2008 10:49 DKT us Nadia Sarabia MD DIAGNOSTIC IMAGING ORDERABLE S Final Result * (ABNORMAL) COMPREHENSIVE METABOLIC PANEL (09/24/2008 2:27 PM CDT) ALKALINE PHOSPHATASE 66 35 - 104 U/L [facility] ALT 14 0 - 31 U/L [facility] CHLORIDE 98 96 - 108 mmol/L [facility] AST 15 12 - 32 U/L [facility] BUN 7 6 - 20 mg/dL [facility] TOTAL PROTEIN 6.5 6.3 - 8.6 g/dL [facility] BILIRUBIN TOTAL 0.3 0.2 - 1.0 mg/dL [facility] CREATININE 0.76 0.51 - 0.95 mg/dL [facility] CO2 27 22 - 30 mmol/L [facility] ALBUMIN 3.7 3.4 - 4.8 g/dL [facility] SODIUM 132(L) 135 - 145 mmol/L [facility] CALCIUM 8.8 8.6 - 10.2 mg/dL [facility] GLUCOSE 123(H) 65 - 99 mg/dL [facility] POTASSIUM 3.2(L) 3.5 - 4.9 mmol/L [facility] GFR, >60 >=60 mL/min/1. 7 sq meter [facility] GFR >60 >=60 mL/min/1. 7 sq meter [facility] Comment: Modification of Diet in Renal Disease (MDRD) study formula. Estimated GFR rate interpretative information for both Americans and non- Americans is available on the [facility] Intranet at: [email or web address] Select: Lab Policies and Procedures Select: Reference Ranges - GFR Blood specimen (specimen) 09/24/2008 2:27 PM CDT 09/24/2008 2:33 PM CDT Nadia Sarabia MD CHEMISTRY ORDERABLES Edited INTERFACE SYSTEM Refer to clinic/hospital department [facility] CLIA# [id number] [address] [facility] [place] [address] * (ABNORMAL) CBC WITH DIFFERENTIAL (09/24/2008 2:27 PM CDT) WBC 8.0 4.0 - 9.8 K/uL [facility] MCH 32.1 27.2 - 32.6 pg [facility] MPV 10.2 9.3 - 12.4 fL [facility] HEMATOCRIT 38.8 35.5 - 44.0 % [facility] RDW-STDEV 43.3 37.1 - 48.7 fL [facility] RBC 4.02 3.90 - 4.90 M/uL [facility] MCHC 33.2 31.5 - 35.5 % [facility] MCV 96.5 82.0 - 99.0 fL [facility] PLATELETS 312 140 - 350 K/uL [facility] HEMOGLOBIN 12.9 11.8 - 14.8 g/dL [facility] RDW 12.3 11.5 - 14.5 % [facility] MONOCYTES 9 3 - 13 % [facility] MONOCYTE ABSOLUTE 0.75 0.10 - 1.30 K/uL [facility] NEUTROPHILS 71(H) 45 - 70 % [facility] NEUTROPHIL ABSOLUTE 5.70 1.90 - 7.00 K/uL [facility] EOSINOPHILS 3 0 - 7 % [facility] EOSINOPHIL ABSOLUTE 0.20 0.00 - 0.70 K/uL [facility] LYMPHOCYTES 16 16 - 45 % [facility] LYMPHOCYTE ABSOLUTE 1.30 0.70 - 4.50 K/uL [facility] BASOPHILS 1 0 - 2 % [facility] BASOPHILS ABSOLUTE 0.05 0.00 - 0.20 K/uL [facility] Blood specimen (specimen) 09/24/2008 2:27 PM CDT 09/24/2008 2:33 PM CDT us Nadia Sarabia MD HEMATOLOGY ORDERABLES Edited INTERFACE SYSTEM Refer to clinic/hospital department [facility] CLIA# [id number] [address] [place] [address] * CT ABDOMEN PELVIS W CONTRAST (09/24/2008 2:12 PM CDT) Anatomical Region Laterality Modality Abdomen Other 09/24/2008 2:12 PM CDT Narrative 09/24/2008 4:46 PM CDT [facility] [address] [place], [place] [address] Admit Date: 09/24/2008 ZEINA COLE Sex: F Admit Prov: NADIA SARABIA Date: 1960 Primary Care Prov: NADIA SARABIA CMRN: [id number] Room: [facility] SSN: [id number] IMAGING SERVICES Ordering Prov: N/A Accession Number: [id number] Interpretation CT SCAN OF THE ABDOMEN AND PELVIS WITH IV CONTRAST 09/24/2008 Clinical History: Left lower quadrant pain. Technique: 5 mm contiguous axial images were obtained from the lung bases to the symphysis pubis following oral and IV contrast administration. Findings: The lung bases are clear. The liver, spleen, pancreas, adrenal glands and kidneys are within normal limits. The caliber of the aorta is normal. No large gallstones are seen. There appears to be a jejunal intussusception in the left upper quadrant, seen on images 30-34, without evidence of bowel obstruction and of uncertain etiology. This may be a transient phenomenon, but a small bowel series is recommended to exclude underlying mass. The bowel loops are otherwise normal. There is no free air, free fluid or lymphadenopathy. In the pelvis, there are multiple uterine masses consistent with leiomyomata. The terminal ileum and distal small bowel loops are normal. There is wall thickening involving the descending and rectosigmoid colon without adjacent inflammatory change, possibly related to mild colitis. The bladder is normal. There is no pelvic mass or free fluid. Impression: 1. Colonic wall thickening without adjacent inflammatory change. 2. Small bowel intussusception in the left upper quadrant. Followup is recommended as discussed above. 3. Wall thickening of the distal colon possibly related to mild colitis. . Dictated by: OLIMPIA CAVANAUGH 09/24/2008 15:41 Electronically signed by: OLIMPIA CAVANAUGH 09/24/2008 16:45 Transcribed: 09/24/2008 16:38 SJ Procedure Note Olimpia Cavanaugh MD - 09/24/2008 [facility] [address] [place], [place] [address] Admit Date: 09/24/2008 ZEINA COLE Sex: F Admit Prov: NADIA SARABIA Date: 1960 Primary Care Prov: NADIA SARABIA CMRN: [id number] Room: [facility] SSN: [id number] IMAGING SERVICES Ordering Prov: N/A Interpretation CT SCAN OF THE ABDOMEN AND PELVIS WITH IV CONTRAST 09/24/2008 Clinical History: Left lower quadrant pain. Technique: 5 mm contiguous axial images were obtained from the lungbases to the symphysis pubis following oral and IV contrastadministration. Findings: The lung bases are clear. The liver, spleen, pancreas,adrenal glands and kidneys are within normal limits. The caliber of the aortais normal. No large gallstones are seen. There appears to be a jejunal intussusception in the left upper quadrant, seen on images 30-34,without evidence of bowel obstruction and of uncertain etiology. This may micheal transient phenomenon, but a small bowel series is recommended toexclude underlying mass. The bowel loops are otherwise normal. There is nofree air, free fluid or lymphadenopathy. In the pelvis, there are multiple uterine masses consistent with leiomyomata. The terminal ileum and distal small bowel loops arenormal. There is wall thickening involving the descending and rectosigmoidcolon without adjacent inflammatory change, possibly related to mildcolitis. The bladder is normal. There is no pelvic mass or free fluid. Impression: 1. Colonic wall thickening without adjacent inflammatory change. 2. Small bowel intussusception in the left upper quadrant. Followupis recommended as discussed above. 3. Wall thickening of the distal colon possibly related to mildcolitis. . Dictated by: OLIMPIA CAVANAUGH 09/24/2008 15:41 Electronically signed by: OLIMPIA CAVANAUGH 09/24/2008 16:45 Transcribed: 09/24/2008 16:38 SJ [address] MD [address] ORDERABLES Final Result * POC CREATININE (09/24/2008 2:05 PM CDT) CREATININE POC 0.8 0.6 - 1.3 mg/dL [facility] GFR, >60 >=60 mL/min/1.7 sq meter [facility] GFR >60 >=60 mL/min/1.7 sq meter [facility] Capillary blood specimen (specimen) 09/24/2008 2:05 PM CDT 09/24/2008 2:05 PM CDT us Nadia Sarabia MD POINT OF CARE TESTING Edited INTERFACE SYSTEM Refer to clinic/hospital department [facility] CLIA# [id number] [address] [place] [address] documented in this encounter Visit Diagnoses Not on filedocumented in this encounter Care Teams Automobile Repossessor Relationship Specialty Start Date End Date Tessy Francois DO [address] [place] [address] PCP - General 11/17/15 documented as of this encounter
--- OUTSIDE RECORDS SUMMARY | 2025-01-06 23:07 | XMS_ITS | Encounter Summary ---
Author Organization [employer] Address [address] [place] [address] Care Team Providers Care Brick And Tile Making Machine Operator Name Role Phone Tessy Francois DO Primary Care Provider [phone] Encounter Details Date Type Department Care Team (Late st Contact Info) Description 08/28/2007 Outpatient Historical [facility] Support Serv. (Adt Cardiology[facility]) [address] 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
--- OUTSIDE RECORDS SUMMARY | 2025-01-06 23:07 | XMS_ITS | Encounter Summary ---
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
--- OUTSIDE RECORDS SUMMARY | 2025-01-06 23:07 | XMS_ITS | Encounter Summary ---
Author Organization [facility] Address 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 DIFFICILE DETECTION Routine 10/26/2008 7:52 AM MEAT PRESS OPERATOR FECAL LEUKOCYTES STAIN Routine 10/26/2008 7:52 AM MEAT PRESS OPERATOR OVA AND PARASITE SCREEN Routine 10/26/2008 7:52 AM MEAT PRESS OPERATOR documented in this encounter Results * CLOSTRIDIUM DIFFICILE TOXIN (10/26/2008 7:52 AM MEAT PRESS OPERATOR) FINAL REPORT NO Clostridium difficile Toxin A or B detected by EIA. A negative result does not rule out C. difficile associated diarrhea or colitis. [facility] Stool specimen (specimen) 10/26/2008 7:52 AM MEAT PRESS OPERATOR 10/26/2008 8:13 AM MEAT PRESS OPERATOR us Sujatha Prado MD MICROBIOLOGY - GENERAL ORDERABL ES Final Result Performing Organization Address [facility] de Phone Number INTERFACE SYSTEM Refer to clinic/hospital department [facility] CLIA# [id number] [address] [place] [address] * OVA AND PARASITE SCREEN (10/26/2008 7:52 AM MEAT PRESS OPERATOR) PRELIMINARY REPORT Pending [facility] FINAL REPORT Concentration : No ova or parasites seen. Trichrome: No ova or parasites seen. [facility] Stool specimen (specimen) 10/26/2008 7:52 AM MEAT PRESS OPERATOR 10/26/2008 8:15 AM MEAT PRESS OPERATOR Narrative INTERFACE SYSTEM - 11/02/2008 7:09 AM MEAT PRESS OPERATOR Performed by [email or web address] [address] Performed by [email or web address] [address] us Sujatha Prado MD MICROBIOLOGY - GENERAL ORDERABL ES Final Result Performing Organization Address [facility] Phone Number INTERFACE SYSTEM Refer to clinic/hospital department [facility] CLIA# [id number] [address] [place] [address] * FECAL LEUKOCYTES STAIN (10/26/2008 7:52 AM MEAT PRESS OPERATOR) FINAL REPORT Few WBC's seen [facility] Stool specimen (specimen) 10/26/2008 7:52 AM MEAT PRESS OPERATOR 10/26/2008 8:13 AM MEAT PRESS OPERATOR us Sujatha Prado MD MICROBIOLOGY - GENERAL ORDERABL ES Final Result Performing Organization Address [facility] de Phone Number INTERFACE SYSTEM Refer to clinic/hospital department [facility] CLIA# [id number] [address] [place] [address] * STOOL CULTURE (SILVANO,SHIG,CAMPY,[id number]) (10/26/2008 7:52 AM MEAT PRESS OPERATOR) PRELIMINARY REPORT No Salmonella isolated. No Shigella isolated. No Escherichia coli serogroup O157:H7 isolated. [facility] FINAL REPORT No Salmonella isolated. No Shigella isolated. No Escherichia coli serogroup O157:H7 isolated. No Camplylobacter isolated. [facility] Stool specimen (specimen) 10/26/2008 7:52 AM MEAT PRESS OPERATOR 10/26/2008 8:17 AM MEAT PRESS OPERATOR us Sujatha Prado MD MICROBIOLOGY - GENERAL ORDERABL ES Final Result INTERFACE SYSTEM Refer to clinic/hospital department [facility] CLIA# [id number] [address] [place] [address] documented in this encounter Visit Diagnoses Not on filedocumented in this encounter Care Teams Traffic Survey Technician Relationship Specialty Start Date End Date Tessy Francois DO [address] [place] [address] PCP - General 11/17/15 documented as of this encounter
--- OUTSIDE RECORDS SUMMARY | 2025-01-06 23:07 | XMS_ITS | Patient Health Summary ---
Author Organization [facility] sfilatino Address [address] [address] Care Team Providers Care Data Visualization Developer Name Role Phone Dillan Woody MD Primary Care Provider [phone] Note from [facility],non-owned Affiliates and Associated Physician Practices is amultiple site organization consisting of ambulatory clinics and hospital sitesin [place], [place], [place] and [place]. This disclosure is being madepursuant to the Care Everywhere program and may not contain all information available regarding this patient. Last updated 18.[facility] Allergies * Ciprofloxacin(Rash at infusion site immediately upon adminitration 01/05/11) * Cephalexin(Anaphylaxis) -High Criticality Medications * Be aware that medications may not be up to date on this document. Alwaysverify current medications with the patient. * ASACOL PO Take 1,200 Caps by mouth 2 times daily. * azathioprine (IMURAN) 50 MG tablet Take 125 mg by mouth daily. * Cyanocobalamin (NASCOBAL) 500 MCG/0.1ML SOLN [place] 1 Squirt into the nose every 7 days. * Meloxicam (MOBIC PO) Take by mouth. * estradiol (VIVELLE-DOT) 0.1 MG/24HR patch(Started 02/26/2012) 1 Patch Two times a week. 11 refills left * FLUoxetine (PROZAC) 20 MG capsule(Started 03/13/2012) Take 1 Cap by mouth once daily. 11 refills left Active Problems Problem Noted Date Diagnosed Date Status post endometrial ablation 03/07/2010 Crohn disease 03/07/2010 Screening for cervical cancer 03/22/2009 Other screening mammogram 03/22/2009 Screen for colon cancer 03/22/2009 Resolved Problems Problem Noted Date Diagnosed Date Resolved Date Fibroid, uterine 01/05/2011 01/07/2011 DUB (dysfunctional uterine bleeding) 03/07/2010 01/07/2011 Immunizations * TDAP (7yrs+)(Given 06/01/2008) Social History Tobacco Use Types Packs/Day Years [...] 36.3 C (97.3 F) 01/07/2011 8:00 AM LIBRARY CLERICAL ASSISTANT Respiratory Rate 18 01/07/2011 8:00 AM LIBRARY CLERICAL ASSISTANT Oxygen Saturation 100% 01/05/2011 8:00 PM LIBRARY CLERICAL ASSISTANT Inhaled Oxygen Concentration - - Weight 73.9 kg (163 lb) 02/26/2012 4:37 PM CDT Height 176.5 cm (5' 9.5 ) 02/26/2012 4:37 PM CDT Body Mass Index 23.73 02/26/2012 4:37 PM CDT Procedures * PAP IG RFLX HPV ASCU(Performed 02/26/2012) Performed for Routine gynecological examination * MAMMO LEFT DIAGNOSTIC(Performed 08/13/2011) Performed for S/P breast augmentation, Abnormal mammogram, unspecified * MAMMOGRAPHY ORDER(Performed 07/17/2011) * CBC W AUTO DIFFERENTIAL(Performed 01/06/2011) * XR ABDOMEN KUB(Performed 01/05/2011) Performed for Pain in the abdomen * GROSS + MICRO EXAM(Performed 01/05/2011) * HCG URINE QUALITATIVE - POINT OF CARE(Performed 01/05/2011) * HGB HCT PANEL(Performed 01/05/2011) * US PELVIS W TRANSVAG NON OB(Performed 12/26/2010) Performed for Fibroid, uterine * PAP IG RFLX HPV ASCU(Performed 03/07/2010) Performed for Routine Gynecological Examination * PAP IG RFLX HPV ASCU(Performed 11/23/2008) Results * PAP SMEAR IG RFLX HPV ASCU (PO REF LAB) (02/26/2012 4:39 PM CDT) Only the most recent of3 resultswithin the time period is included. Diagnosis [facility] ACCOUNT BILL Comment: NEGATIVE FOR INTRAEPITHELIAL LESION AND MALIGNANCY. FUNGAL ORGANISMS MORPHOLOGICALLY CONSISTENT WITH MANDIE SPECIES ARE PRESENT. Specimen Adequacy [facility] ACCOUNT BILL Comment:Satisfactory for antonino caicedo. Clinician Provided ICD9 [facility] ACCOUNT BILL Comment:V72.31 ; Routine carbon setter ecological examination Performed by [facility] ACCOUNT BILL [...] CYTYC Thin Prep Vial Resulting Agency Comment [facility] [address] [id number] Rock Bullock MD LAB - PATHOLOGY/CYTO LOGY ORDERABLES [facility] ACCOUNT BILL * MAMMO DIAG DIRECT DIGITAL IMAGE UNIL LEFT (08/13/2011) Anatomical Region Laterality Modality Left Other Rock Bullock MD MAMMO ORDERABLES * MAMMOGRAPHY ORDER (07/17/2011) Anatomical Region Laterality Modality Other Rock Bullock MD MAMMO ORDERABLES * (ABNORMAL) CBC W AUTO DIFFERENTIAL (01/06/2011 4:05 AM LIBRARY CLERICAL ASSISTANT) WBC 10.0 4.5 - 11.0 1000/mm3 [facility] RBC 2.74(L) 4.2 - 5.4 10X6 [facility] Hemoglobin 10.1(L) 12.0 - 16.0 gm/dl [facility] Hematocrit 29.9(L) 36.0 - 48.0 % [facility] MCV 109.1(H) 80.0 - 99.0 fl [facility] MCH 36.9(H) 25.0 - 31.0 pg [facility] MCHC 33.8 32.0 - 36.0 gm/dl [facility] RDW 14.1 11.5 - 14.5 % [facility] Platelet Count 205 130.0 - 400.0 1000/mm3 [facility] Granulocytes % 78.9(H) 40.0 - 70.0 % [facility] Lymphocytes % 9.8(L) 22.0 - 40.0 % [facility] Monocytes % 10.8(H) 2.0 - 10.0 % [facility] Eosinophils % 0.2 0.0 - 6.0 % [facility] Basophils % 0.3 0.0 - 3.0 % [facility] Granulocytes Absolute 7.92(H) 1.8 - 7.7 [facility] Lymphocytes Absolute 0.98(L) 1.0 - 5.4 [facility] Monocytes Absolute 1.08 0.1 - 1.1 [facility] Eosinophils Absolute 0.02 0.0 - 0.7 [facility] Basophils Absolute 0.03 0.0 - 0.2 [facility] Comment Manual Diff Not Indicated [facility] BLOOD SPECIMEN / Unknown 01/06/2011 4:05 AM LIBRARY CLERICAL ASSISTANT 01/06/2011 4:33 AM LIBRARY CLERICAL ASSISTANT Rock Bullock MD LAB - HEMATOLOGY ORD ERABLES [facility] [address] [place] [address] * XR ABDOMEN 1 VW (01/05/2011 9:58 AM LIBRARY CLERICAL ASSISTANT) Anatomical Region Laterality Modality Abdomen Radiographic Kavya ging 01/05/2011 10:1 4 AM LIBRARY CLERICAL ASSISTANT Impressions 01/05/2011 10:14 AM LIBRARY CLERICAL ASSISTANT Normal KUB Narrative 01/05/2011 10:14 AM LIBRARY CLERICAL ASSISTANT Abdomen KUB Indication: Evaluate for retained surgical instrument Single supine view of abdomen demonstrates a nonspecific bowel gas pattern without evidence of soft tissue mass or abnormal calcifications. No foreign bodies are identified. Procedure Note Jnoathan Cote MD - 01/05/2011 Abdomen KUB Indication: Evaluate for retained surgical instrument Single supine view of abdomen demonstrates a nonspecific bowel gas pattern without evidence of soft tissue mass or abnormal calcifications. No foreign bodies are identified. IMPRESSION Normal KUB Rock Bullock MD DIAGNOSTIC IMAGING O RDERABLES * GROSS + MICRO EXAM (01/05/2011 9:06 AM LIBRARY CLERICAL ASSISTANT) [facility] Surgeon Dr. uBllock [facility] Grossed By ANANTH VELA [facility] Gross Report [facility] Comment: SURGEON: Dr. Bullock COPY TO: INDICATIONS FOR PROCEDURE: Dysfunctional uterine bleeding, dysmenorrhea, failed endometrial ablation OPERATION: Total abdominal hysterectomy, bilateral salpingo- oophorectomy GROSS: The specimen is received in one container labeled with the patient's name and uterus, cervix, bilateral tubes and ovaries . The specimen consists of a 21.0 x 17.0 x 11.5 cm uterine corpus with attached cervix and attached right and left ovaries and tubes. The uterus and cervix weigh (without the ovaries and tubes) 850 grams. The serosa is smooth and glistening and there are bulging subserosal nodules. The ectocervix measures 2.5 cm in diameter. The external os is slit-like, about 0.5 cm in length. The endocervical canal measures 4.5 cm in length. The uterine cavity measures 5.6 x 4.0 cm and is lined by glistening soft red-peterson endometrium that measures up to 0.1 cm in thickness. The myometrium has a maximum thickness of 3.5 cm. There are multiple (approximately 8-10) submucosal intramural and subserosal well-circumscribed peterson myomatous nodules. These nodules measure up to 10.0 cm in diameter. All of these smaller nodules display whorled firm white-peterson cut surfaces. The largest nodule displays a whorled appearance, but is remarkable for mucinous cystic areas and softer sara areas. The right and left ovaries measure 3.5 x 2.0 x 2.0 cm and 5.0 x 2.5 x 2.5 cm. The external surfaces are purple to grayish- peterson and there are a few membranous adhesions. The cut surfaces reveal multiple subcapsular intramural fluid-filled hemorrhagic cysts that measure up to 1.0 cm in the right ovary and 2.1 cm in the left ovary. The right and left tubes each have fimbria at one end and measure 3.5 and 5.4 cm in length and each up to about 0.7 cm in diameter. Dump Grader sections of the specimen are submitted as follows: A-B. Anterior and posterior cervix. C-D. Anterior and posterior endomyometrium and serosa. E-H. Possible myomas with largest myoma in G and H. I-J. Left and right ovaries and tubes. LW/angie Microscopic Examination [facility] Comment: MICROSCOPIC: The section of the cervix shows it in part to be surfaced by squamous normally maturing epithelium and in part by unremarkable columnar epithelium. Endocervical glands display normal morphology. The endometrium shows weakly proliferative pattern. There is no hyperplasia or malignancy identified. Within the myometrium, leiomyomas are present. Those are composed of interlacing bundles of smooth muscles. There is no increase in cellularity or mitotic activity seen. Also, foci of adenomyosis are seen. The section of the left ovary shows a small follicular cyst. The right ovary shows hemorrhagic corpus luteum. The fallopian tubes are normal. BYRON/yoel Diagnosis [facility] Comment: DIAGNOSIS: 1. Uterus, total abdominal hysterectomy with bilateral salpingo- oophorectomy: Cervix: -- No pathologic diagnosis Endometrium: -- Weakly proliferative pattern Myometrium: -- Leiomyomata -- Adenomyosis Ovary, left: -- Follicular cyst Ovary, right: -- Hemorrhagic corpus luteum Fallopian tubes, bilateral: -- No pathologic diagnosis BYRON/yoel Released by Prema BENITEZ [facility] CPT Code 72533 [facility] HYSTERECTOMY AND BILATERAL SALPINGO-OOPHORECTOM Y SPECIMEN / Unknown 01/05/2011 9:06 AM LIBRARY CLERICAL ASSISTANT 01/05/2011 9:06 AM LIBRARY CLERICAL ASSISTANT Rock Bullock MD LAB - PATHOLOGY/CYTO LOGY ORDERABLES Performing Organization Address [facility] Co de Phone Number [facility] [address] [place] [address] * HCG URINE QUALITATIVE - POINT OF CARE (01/05/2011 6:15 AM LIBRARY CLERICAL ASSISTANT) HCG Qual Urine neg Negative [facility] PO[facility] TEST[facility] QC Verified yes Yes [facility] POC T TESTING Urine specimen (specimen) URINE / Unknown 01/05/2011 6:15 AM LIBRARY CLERICAL ASSISTANT Paul Stevenson MD LAB - POINT OF CARE ORDERABLES Performing Organization Address [facility] Co de Phone Number [facility] [address] [place] [address] * HGB HCT PANEL (01/05/2011 6:10 AM LIBRARY CLERICAL ASSISTANT) Hemoglobin 13.2 12.0 - 16.0 gm/dl [facility] Hematocrit 38.0 36.0 - 48.0 % [facility] BLOOD SPECIMEN / Unknown 01/05/2011 6:10 AM LIBRARY CLERICAL ASSISTANT 01/05/2011 6:18 AM LIBRARY CLERICAL ASSISTANT Rock Bullock MD LAB - HEMATOLOGY ORD ERABLES Performing Organization Address [facility] de Phone Number [facility] [address] [place] [address] * US PELVIS WITH TRANSVAG NON OB (12/26/2010 8:19 AM LIBRARY CLERICAL ASSISTANT) Anatomical Region Laterality Modality Pelvis Ultrasound 12/26/2010 10:1 6 AM LIBRARY CLERICAL ASSISTANT Impressions 12/26/2010 10:31 AM LIBRARY CLERICAL ASSISTANT The uterus is grossly enlarged, lobulated in contour, and heterogeneous in echotexture, consistent with the presence of multiple myomata. The ovaries are sonographically unremarkable. Narrative 12/26/2010 10:31 AM LIBRARY CLERICAL ASSISTANT ULTRASOUND PELVIS - TRANSABDOMINAL/TRANSVAGINAL WITH DOPPLER Indication: Pelvic pain. Heavy menses. Uterine ablation 5 years ago. Technique: Transabdominal and endovaginal images of the female pelvis were obtained. Findings: On transabdominal images, the uterus measures approximately 17.23 x 8.13 x 11.36 cm in size. A uterine mass has a lobulated contour and heterogeneous echotexture consistent with multiple myomata. The largest discrete myoma is located in midline and measures approximately 8.8 x 5.7 x 7.7 cm in size. A uterine mass to the right of midline measures approximately 3.0 x 1.9 x 2.3 cm. The mass at the lower uterine body measures approximately 3.3 x 2.2 x 2.8 cm. There is no free fluid within the pelvis. Ovaries appear unremarkable on transabdominal images. Endovaginal imaging was performed for more detailed evaluation of the ovaries and of the myometrium. On endovaginal imaging, no uterine mass is identified. The endometrium could not be visualized. This is presumed secondary to patient's provided history of endometrial ablation 5 years ago. The right ovary measures approximately 2.78 x 2.25 x 1.64 cm in size. A few small cysts are present at the right ovary. The left ovary measures approximately 2.28 x 1.46 x 2.03 cm in size. Procedure Note Radha Short MD - 12/26/2010 ULTRASOUND PELVIS - TRANSABDOMINAL/TRANSVAGINAL WITH DOPPLER Indication: Pelvic pain. Heavy menses. Uterine ablation 5 years ago. Technique: Transabdominal and endovaginal images of the female pelvis were obtained. Findings: On transabdominal images, the uterus measures approximately 17.23 x 8.13 x 11.36 cm in size. A uterine mass has a lobulated contour and heterogeneous echotexture consistent with multiple myomata. The largest discrete myoma is located in midline and measures approximately 8.8 x 5.7 x 7.7 cm in size. A uterine mass to the right of midline measures approximately 3.0 x 1.9 x 2.3 cm. The mass at the lower uterine body measures approximately 3.3 x 2.2 x 2.8 cm. There is no free fluid within the pelvis. Ovaries appear unremarkable on transabdominal images. Endovaginal imaging was performed for more detailed evaluation of the ovaries and of the myometrium. On endovaginal imaging, no uterine mass is identified. The endometrium could not be visualized. This is presumed secondary to patient's provided history of endometrial ablation 5 years ago. The right ovary measures approximately 2.78 x 2.25 x 1.64 cm in size. A few small cysts are present at the right ovary. The left ovary measures approximately 2.28 x 1.46 x 2.03 cm in size. IMPRESSION The uterus is grossly enlarged, lobulated in contour, and heterogeneous in echotexture, consistent with the presence of multiple myomata. The ovaries are sonographically unremarkable. Rock Bullock MD ORDERABLES Care Teams Data Visualization Developer Relationship Specialty Start Date End Date Dillan Woody MD PCP - General Internal Medicine 02/26/12
[2025-01-06 23:08] VITALS: BP 183/80; PULSE 69; RESP 18; TEMP 36.5; O2SAT 99
--- OUTSIDE RECORDS SUMMARY | 2025-01-06 23:08 | XMS_ITS | Encounter Summary ---
Author Organization [facility] Address [address] [place] [address] Care Team Providers Care Shirt Folder Name Role Phone Priscila Tessydasha Mchugh Primary Care Provider [phone] Encounter Details Date Type Department Care Team (Late st Contact Info) Description 10/23/2008 Outpatient Historical [facility] Sarabia, MD Mago Social History Tobacco Use Types Packs/Day Years Used Date Smoking Tobacco: Never Assessed Comments Unknown Sex and Gender Information Value Date Recorded Sex Assigned at Not on file Legal Sex Female 5:28 AM RENEWABLE ENERGY ENGINEER Gender Identity Not on file Sexual Orientation Not on file documented as of this encounter Plan of Treatment Not on file documented as of this encounter Procedures Procedure Name Priority Date/Time Associated Diagnosis Comments GLUCOSE TOLERANCE, 2 HR Routine 10/23/2008 10:30 AM RENEWABLE ENERGY ENGINEER GLUCOSE FARHAT NON-GEST FOR DIABETES 2 HR Routine 10/23/2008 10:30 AM RENEWABLE ENERGY ENGINEER GLUCOSE TOLERANCE, FASTING Routine 10/23/2008 8:18 AM RENEWABLE ENERGY ENGINEER BASIC METABOLIC PANEL Routine 10/23/2008 8:18 AM RENEWABLE ENERGY ENGINEER documented in this encounter Results * GLUCOSE FARHAT NON-GEST FOR DIABETES 2 HR (10/23/2008 10:30 AM RENEWABLE ENERGY ENGINEER) COMMENT See Additional Orderables [facility] Blood specimen (specimen) 10/23/2008 10:30 AM RENEWABLE ENERGY ENGINEER 10/23/2008 10:32 AM RENEWABLE ENERGY ENGINEER Mago Sarabia MD CHEMISTRY ORDERABLES Final R esult Performing Organization Address [facility] de Phone Number INTERFACE SYSTEM Refer to clinic/hospital department [facility] CLIA# [id number] [address] [place] [address] * GLUCOSE TOLERANCE, 2 HR (10/23/2008 10:30 AM RENEWABLE ENERGY ENGINEER) GLUCOSE, 2HR 135 <=139 mg/dL [facility] Blood specimen (specimen) 10/23/2008 10:30 AM RENEWABLE ENERGY ENGINEER 10/23/2008 10:32 AM RENEWABLE ENERGY ENGINEER Mago Sarabia MD CHEMISTRY ORDERABLES [facility] Performing Organization Address [facility] Phone Number INTERFACE SYSTEM Refer to clinic/hospital department [facility] CLIA# [id number] [address] [address] * BASIC METABOLIC PANEL (10/23/2008 8:18 AM RENEWABLE ENERGY ENGINEER) CHLORIDE 103 96 - 108 mmol/L [facility] GLUCOSE 86 65 - 99 mg/dL [facility] SODIUM 141 135 - 145 mmol/L [facility] CALCIUM 8.6 8.6 - 10.2 mg/dL [facility] CO2 28 22 - 30 mmol/L [facility] CREATININE 0.80 0.51 - 0.95 mg/dL [facility] POTASSIUM 3.9 3.5 - 4.9 mmol/L [facility] BUN 11 6 - 20 mg/dL [facility] GFR, >60 >=60 mL/min/1.7 sq meter [facility] GFR >60 >=60 mL/min/1.7 sq meter [facility] Comment: ansiModification of Diet in Renal Disease (MDRD) study formula. Estimated GFR rate interpretative information for both Americans and non- Americans is available on the [facility] Intranet at: [email or web address] Select: Lab Policies and Procedures Select: Reference Ranges - GFR Blood specimen (specimen) 10/23/2008 8:18 AM RENEWABLE ENERGY ENGINEER 10/23/2008 9:00 AM RENEWABLE ENERGY ENGINEER Mago Sarabia MD CHEMISTRY ORDERABLES Edited Performing Organization Address [facility] de Phone Number INTERFACE SYSTEM Refer to clinic/hospital department [facility] CLIA# [id number] [address] [address] * GLUCOSE TOLERANCE, FASTING (10/23/2008 8:18 AM RENEWABLE ENERGY ENGINEER) GTT INTERP, NON-GESTATION AL Based on 75 g dose: Type 1 or 2 Diabetes Mellitus Criteria: Fasting (Baseline): > = 126 mg/dL or 2 hour specimen: > = 200 mg/dL Impaired Glucose Metabolism Criteria: Fasting (Baseline): 100 - 125 mg/dL 2 hour specimen: 140 - 199 mg/dL [facility] GLUCOSE FASTING 86 <=99 mg/dL [facility] Blood specimen (specimen) 10/23/2008 8:18 AM RENEWABLE ENERGY ENGINEER 10/23/2008 9:00 AM RENEWABLE ENERGY ENGINEER us Mago Sarabia MD CHEMISTRY ORDERABLES Final R esult Performing Organization Address [facility] de Phone Number INTERFACE SYSTEM Refer to clinic/hospital department [facility] CLIA# [id number] [address] [place] [address] documented in this encounter Visit Diagnoses Not on filedocumented in this encounter Care Teams Shirt Folder Relationship Specialty Start Date End Date Tessy Francois DO [address] [place] [address] PCP - General 11/17/15 documented as of this encounter
--- OUTSIDE RECORDS SUMMARY | 2025-01-06 23:08 | XMS_ITS | Clinical Summary ---
Author Organization [facility] [email or web address] Address [address] [place] [address] Care Team Providers Care Baling Machine Operator Name Role Phone Dillan Woody MD Primary Care Provider [phone] Source Comments [facility] [email or web address],non-owned Affiliates and Associated Physician Practices is amultiple site organization consisting of ambulatory clinics and hospital sitesin [place], [place], [place] and [place]. This disclosure is being madepursuant to the Care Everywhere program and may not contain all information available regarding this patient. Last updated 18.[facility] [email or web address] Allergies Active Allergy Reactions Criticality Noted Date [...] daily. Active Cyanocobalamin (NASCOBAL) 500 MCG/0.1ML SOLN [place] 1 Squirt into the nose every 7 [...] Administration Dates Next Due TDAP (7yrs+) 06/01/2008 Family History Medical History Relation Name Comments Hypertension Brother COPD - Chronic Obstructive Pulmonary Disease Mother Diabetes Mother Relation Name Status Comments Brother Mother Social History Tobacco Use Types Packs/Day Years [...] 36.3 C (97.3 F) 01/07/2011 8:00 AM NATURAL RESOURCES EXTENSION EDUCATOR Respiratory Rate 18 01/07/2011 8:00 AM NATURAL RESOURCES EXTENSION EDUCATOR Oxygen Saturation 100% 01/05/2011 8:00 PM NATURAL RESOURCES EXTENSION EDUCATOR Inhaled Oxygen Concentration - - Weight 73.9 kg (163 lb) 02/26/2012 4:37 PM CDT Height 176.5 cm (5' 9.5 ) 02/26/2012 4:37 PM CDT Body Mass Index 23.73 02/26/2012 4:37 PM CDT Plan of Treatment Health Maintenance Due Date Last Done Comments COLOGUARD (AGES 45-75) - COL ON CA SCREENING 1962 COLON MONITORING 1962 COLONOSCOPY - COLON CA SCREENING 1962 CT COLONOGRAPHY - COLON CA SCREENING 1962 Colorectal Cancer Screening 1962 FIT - COLON CA SCREENING 1962 FLEX SIG - COLON CA SCREENING 1962 LIPID TESTING 1962 COVID-19 VACCINE (#1) 1967 HIV SCREENING 1977 HEPATITIS C SCREENING 04/21/1980 PNEUMOCOCCAL VACCINE 50+ (1 of 2 - PCV) 1981 PNEUMOCOCCAL VACCINE (1 of 2 - PCV) 1981 ZOSTER VACCINE (1 of 2) 1981 MAMMOGRAM 07/17/2013 07/17/2011 PAP SMEAR 02/25/2015 02/26/2012, 03/07/2010, 11/23/2008 DTAP/TDAP/TD VACCINES (2 - T d or Tdap) 06/01/2018 06/01/2008 Respiratory Syncytial Virus (RSV) Vaccine Pt: or over 60 yrs (1 - Risk 60-74 years 1-dose series) 2022 INFLUENZA VACCINE (#1) 2024 DEPRESSION SCREENING 12/02/2024 HEPATITIS B VACCINE Aged Out No longe r eligible based on patient's age to complete this topic HIB VACCINE Aged Out No longer eligi ble based on patient's age to complete this topic HPV VACCINE Aged Out No longer eligi ble based on patient's age to complete this topic MENINGOCOCCAL (Group B) VACCINE Aged Out No longer eligible b ased on patient's age to complete this topic MENINGOCOCCAL VACCINE Aged Out No geoffrey víctor eligible based on patient's age to complete this topic Procedures Procedure Name Priority Date/Time Associated Diagnosis [...] [facility] ACCOUNT BILL Comment:Satisfactory for antonino luation. Clinician Provided ICD9 [facility] ACCOUNT BILL Comment:V72.31 ; Routine derrick worker well service ecological examination Performed by [facility] ACCOUNT BILL [...] Thin Prep Vial Resulting Agency Comment [facility] [address] [id number] Rock Bullock MD LAB - PATHOLOGY/CYTO LOGY [...] 10:33 PM 01/04/2011 8:00 PM Care Teams Baling Machine Operator Relationship Specialty Start Date End Date Dillan Woody MD PCP - General Internal Medicine 02/26/12
--- OUTSIDE RECORDS SUMMARY | 2025-01-06 23:08 | XMS_ITS | Encounter Summary ---
Author Organization [employer] Address [address] [place] [address] Care Team Providers Care Molecular Modeler Name Role Phone Tessy Francois DO Primary Care Provider [phone] Encounter Details Date Type Department Care Team (Late st Contact Info) Description 10/07/2008 Outpatient Historical [facility] Madelyn Rae MD [address] [facility] [address] [place] [address] Regional Enteritis of Unspecified Site (CMS/HCC) Social History Tobacco Use Types Packs/Day Years Used Date Smoking Tobacco: Never Assessed Comments Unknown Sex and Gender Information Value Date Recorded Sex Assigned at Not on file Legal Sex Female 5:28 AM RUBBISH COLLECTOR Gender Identity Not on file Sexual Orientation Not on file documented as of this encounter Plan of Treatment Not on file documented as of this encounter Procedures Procedure Name Priority Date/Time Associated Diagnosis Comments PATHOLOGY Routine 10/07/2008 3:22 PM RUBBISH COLLECTOR STOOL CULTURE (SILVANO,SHIG,CAMPY,ECO 157) Routine 10/07/2008 3:17 PM RUBBISH COLLECTOR C. DIFFICILE DETECTION Routine 10/07/2008 3:17 PM RUBBISH COLLECTOR OVA AND PARASITE SCREEN Routine 10/07/2008 3:17 PM RUBBISH COLLECTOR POC , URINE Routine 10/07/2008 1:40 PM RUBBISH COLLECTOR documented in this encounter Results * PATHOLOGY (10/07/2008 3:22 PM RUBBISH COLLECTOR) FINAL REPORT [facility] [address] [place], [place] [address] Patient: ZEINA COLE : 1960 Procedure Date: 10/07/2008 Accession Date: 10/07/2008 Case No: [id number] Ordering Dr: MADELYN RAE Case types AW, BW, FW, NW and SH are performed by [facility] [place] [place], [place] SURGICAL PATHOLOGY & NON-GYNECOLOGIC CYTOPATHOLOGY REPORT DIAGNOSIS LARGE INTESTINE, LEFT, BIOPSY: - FOCAL CHRONIC ACTIVE COLITIS WITH GRANULOMAS, CONSISTENT WITH CROHN'S DISEASE. Specimen Description: Left colon biopsy. Operative Procedure: Not stated. Patient Information/Histo ry/Diagnosis: Acute inflammation. Please help characterize. Endoscopic appearance c/w IBD; UC vs. Crohn's. Are there granulomas? Gross: Received in a single container labeled Zeina Cole, left colon biopsy are seven pieces of peterson tissue ranging from 0.2 to 0.4 cm in greatest dimension. All are labeled A1. KHF/JOVANYP 10.07.2008 04:36 pm Microscopic: The slides are labeled [id number], Zeina Cole. Sections of the left colon biopsy show focal active colitis characterized by patchy infiltrates of acute and chronic inflammatory cells in the lamina propria as well as crypt and surface epithelium. Several non-necrotizing granulomas are noted. There is focal erosion of the mucosal surface. In several fragments, there is mild crypt architectural distortion. The appearance is consistent with active Crohn's disease. There is no evidence of dysplasia. CJ/PHC 10.08.2008 09:06 am Staging Form: No. ELECTRONIC SIGNATURE FOR LIZETH BHANDARI MD- 10/08/08 09:19 am INTERFACE SYSTEM 10/07/2008 3:22 PM RUBBISH COLLECTOR us Madelyn Rae MD PATHOLOGY/CYTOLOGY ORDERABLE S Final Result INTERFACE SYSTEM Refer to clinic/hospital department * OVA AND PARASITE SCREEN (10/07/2008 3:17 PM RUBBISH COLLECTOR) PRELIMINARY REPORT Pending [facility] FINAL REPORT Concentration : No ova or parasites seen. Trichrome: No ova or parasites seen. [facility] 10/07/2008 3:17 PM RUBBISH COLLECTOR 10/07/2008 4:43 PM RUBBISH COLLECTOR Narrative INTERFACE SYSTEM - 10/14/2008 10:48 AM RUBBISH COLLECTOR fax to dr rae [facility] [address] [place] [id number] Performed by Training [employer] [address] Madelyn Rae MD MICROBIOLOGY - GENERAL ORDER DIVINE Final Result Performing Organization Address [facility] Phone Number INTERFACE SYSTEM Refer to clinic/hospital department [facility] CLIA# [id number] [address] [place] [address] * STOOL CULTURE (SILVANO,SHIG,CAMPY,DPC228) (10/07/2008 3:17 PM RUBBISH COLLECTOR) PRELIMINARY REPORT No Salmonella isolated. No Shigella isolated. No Escherichia coli serogroup O157:H7 isolated. [facility] FINAL REPORT No Salmonella isolated. No Shigella isolated. No Escherichia coli serogroup O157:H7 isolated. No Camplylobacter isolated. [facility] 10/07/2008 3:17 PM RUBBISH COLLECTOR 10/07/2008 4:43 PM RUBBISH COLLECTOR Narrative INTERFACE SYSTEM - 10/10/2008 7:51 AM RUBBISH COLLECTOR fax to dr rae Madelyn Rae MD MICROBIOLOGY - GENERAL ORDER DIVINE Final Result Performing Organization Address [facility] Co de Phone Number INTERFACE SYSTEM Refer to clinic/hospital department [facility] CLIA# [id number] [address] [place] [address] * CLOSTRIDIUM DIFFICILE TOXIN (10/07/2008 3:17 PM RUBBISH COLLECTOR) FINAL REPORT NO Clostridium difficile Toxin A or B detected by EIA. A negative result does not rule out C. difficile associated diarrhea or colitis. [facility] Stool specimen (specimen) 10/07/2008 3:17 PM RUBBISH COLLECTOR 10/07/2008 4:43 PM RUBBISH COLLECTOR Narrative INTERFACE SYSTEM - 10/08/2008 3:11 PM RUBBISH COLLECTOR fax to dr rae Madelyn Rae MD MICROBIOLOGY - GENERAL ORDER DIVINE Final Result Performing Organization Address [facility] de Phone Number INTERFACE SYSTEM Refer to clinic/hospital department [facility] CLIA# [id number] [address] [place] [address] * POC , URINE (10/07/2008 1:40 PM RUBBISH COLLECTOR) , URINE POC Negative Negative [facility] Urine specimen (specimen) 10/07/2008 1:40 PM RUBBISH COLLECTOR 10/07/2008 1:40 PM RUBBISH COLLECTOR Madelyn Rae MD POINT OF CARE TESTING Final Result Performing Organization Address [facility] de Phone Number INTERFACE SYSTEM Refer to clinic/hospital department [facility] CLIA# [id number] [address] [place] [address] documented in this encounter Visit Diagnoses Diagnosis Regional enteritis of unspecified site (CMS/HCC) Regional enteritis of unspecified site documented in this encounter Care Teams Molecular Modeler Relationship Specialty Start Date End Date Tessy Francois DO [address] [place] [address] PCP - General 11/17/15 documented as of this encounter
--- OUTSIDE RECORDS SUMMARY | 2025-01-06 23:08 | XMS_ITS | Encounter Summary ---
Author Organization [facility] Address [address] [place] [address] Care Team Providers Care Registered Nurse Post Partum Name Role Phone FrancoisTessy verduzco Primary Care Provider [phone] Encounter Details Date Type Department Care Team (Latest Contact Info) Description 10/23/2008 Outpatient Historical [facility] Sujatha Ledesma MD [address] [place] [address] Functional Diarrhea Social History Tobacco Use Types Packs/Day Years Used Date Smoking Tobacco: Never Assessed Comments Unknown Sex and Gender Information Value Date Recorded Sex Assigned at Not on file Legal Sex Female 5:28 AM CUFF STITCHER Gender Identity Not on file Sexual Orientation Not on file documented as of this encounter Plan of Treatment Not on file documented as of this encounter Procedures Procedure Name Priority Date/Time Associated Diagnosis Comments C-REACTIVE PROTEIN Routine 10/23/2008 8: 19 AM CUFF STITCHER documented in this encounter Results * C-REACTIVE PROTEIN (10/23/2008 8:19 AM CUFF STITCHER) CRP 0.2 0.0 - 0.8 mg/dL [facility] Blood specimen (specimen) 10/23/2008 8:19 AM CUFF STITCHER 10/23/2008 9:00 AM CUFF STITCHER us Sujatha Prado MD CHEMISTRY ORDERABLES Final Resu lt INTERFACE SYSTEM Refer to clinic/hospital department [facility] CLIA# [id number] [address] [place] [address] documented in this encounter Visit Diagnoses Diagnosis Functional diarrhea documented in this encounter Care Teams Registered Nurse Post Partum Relationship Specialty Start Date End Date Tessy Francois DO [address] [place] [id number] PCP - General 11/17/15 documented as of this encounter
--- OUTSIDE RECORDS SUMMARY | 2025-01-06 23:08 | XMS_ITS | Clinical Summary ---
Author Organization [facility] Administrative Offices Address [address] [place] [address] Care Team Providers Care Label Folder Name Role Phone Tessy Francois DO Primary Care Provider [phone] Allergies Active Allergy Reactions Criticality Noted Date Comments Cephalexin Anaphylaxis High 02/26/2013 Ciprofloxacin Unknown 02/26/2013 Hydrocodone Itching Low 04/01/2014 Unclassified Drug Seizure High 05/16/2017 spirolactine Medications FLUoxetine (PROZAC) 20 mg Oral tablet Take 1 Tab by mouth daily. 30 Tab 11 3 Active azaTHIOprine (IMURAN) 50 mg Oral tablet 3 Active NASCOBAL 500 mcg Both Nostril [place] 3 Active DELZICOL 400 mg Oral CpDR 3 Active diltiaZEM (CARDIZEM CD) 240 mg Controlled Delivery 24 hour capsule 7 Active estradiol (VIVELLE-DOT) 0.1 mg/24 hr patchIndications: S/P total hysterectomy and BSO (bilateral salpingo-oophorec dixon),Menopausal symptoms Apply 1 Patch to skin as directed twice weekly. 24 Patch 3 7 Active Active Problems Patient Care Coordination No te Formatting of this note migh t be different from the original. Puff Iron Operator - Dr Shashank Rodriguez Problem Noted Date Diagnosed Date Menopausal symptoms 04/04/2015 Crohn disease 08/11/2013 S/P JACK-BSO 08/11/2013 S/P shoulder surgery 08/11/2013 Overview (08/11/2013): right Immunizations Immunization Administration Dates Next Due Influenza Seasonal Unspecified Formulation IM Family History Medical History Relation Name Comments Breast Cancer Neg Hx Ovarian Cancer Neg Hx Social History Tobacco Use Types Packs/Day Years Used Date Smoking Tobacco: Some Days Alcohol Use Standard Drinks/Week Comments Yes 0 (1 standard drink = 0.6 oz pur e alcohol) Comments No Sex and Gender Information Value Date Recorded Sex Assigned at Not on file Legal Sex Female 5:28 AM OUTDOOR POWER EQUIPMENT MECHANIC Gender Identity Not on file Sexual Orientation Not on file Occupation Industry Job Start Date Job End Date Not on file Not on file Not on file Not on file Last Filed Vital Signs Vital Sign Reading Time Taken Comments Blood Pressure 136/72 12/30/2017 8:37 AM OUTDOOR POWER EQUIPMENT MECHANIC Pulse 71 05/16/2017 10:45 AM CDT Temperature - - Respiratory Rate 17 08/11/2013 11:39 AM CDT Oxygen Saturation - - Inhaled Oxygen Concentration - - Weight 73.5 kg (162 lb) 12/30/2017 8:37 AM OUTDOOR POWER EQUIPMENT MECHANIC Height 171.5 cm (5' 7.5 ) 12/30/2017 8:37 AM OUTDOOR POWER EQUIPMENT MECHANIC Body Mass Index 25 12/30/2017 8:37 AM OUTDOOR POWER EQUIPMENT MECHANIC Plan of Treatment Health Maintenance Due Date Last Done Comments PNEUMOCOCCAL VACCINE 0-64 YE ARS (1 of 2 - PCV) 1968 FIT-DNA Q 3 years 2007 Flex Sig/CT Colonography Q 5 years 2007 ZOSTER VACCINE (1 of 2) 2012 FIT/FOBT Q 1 year 04/01/2015 04/01/2014 COLORECTAL SCREENING 04/04/2016 04/04/2015, 04/01/2014, 10/07/2008 Colorectal Cancer Screening 04/04/2016 CERVICAL CANCER SCREENING 05/16/20182016, 04/04/2015, 04/04/2015, Additional history exists DTAP/TDAP/TD VACCINES (2 - T d or Tdap) 06/01/2018 06/01/2008 BREAST CANCER SCREENING 01/01/2019 01/01/20 18, 02/06/2017, 07/20/2015, Additional history exists INFLUENZA VACCINE (#1) 2024 09/17/2012 RSV VACCINE (60+ or ) (1 - 1-dose 75+ series) 2037 Procedures Procedure Name Priority Date/Time Associated Diagnosis Comments MAMMO DIAGNOSTIC BILATERAL W OR WO CAD Routine 01/01/2018 10:27 AM OUTDOOR POWER EQUIPMENT MECHANIC Nipple discharge, bloody CERV/VAG CYTO SCREEN PAP RLFX HPV Routine 05/16/2017 11:14 AM CDT Encounter for gynecological examination without abnormal finding POC OCCULT BLOOD 1 CARD Routine 04/01/2014 1:30 PM CDT Routine gynecological examination from Last 3 Months or Most Recently Relevant to Health Maintenance Results * MAMMO DIAGNOSTIC BILATERAL W OR WO CAD (01/01/2018 10:27 AM OUTDOOR POWER EQUIPMENT MECHANIC) Anatomical Region Laterality Modality Breast Bilateral Mammography 01/01/2018 10:2 7 AM OUTDOOR POWER EQUIPMENT MECHANIC Impressions 01/01/2018 2:29 PM OUTDOOR POWER EQUIPMENT MECHANIC IMPRESSION: Bilateral breast implants. Negative and stable bilateral diagnostic mammogram. Mildly dilated ducts and occasional cysts, otherwise negative bilateral subareolar breast sonogram. If the bloody nipple discharge persists, recommend further evaluation with breast MRI. Overall Assessment: BI-RADS Category: 2. Benign finding(s). Dictation Location: [facility] 01/01/2018 2:29 PM OUTDOOR POWER EQUIPMENT MECHANIC BILATERAL DIAGNOSTIC DIGITAL IMPLANT MAMMOGRAMS WITH CAD BILATERAL BREAST SONOGRAM, LIMITED DATE: 01/01/2018 HISTORY: Breast implants. Recent episodes of bilateral bloody nipple discharge. TECHNIQUE: A bilateral diagnostic mammogram was performed. COMPARISON: 02/06/2017, 07/17/2011 BREAST COMPOSITION: Heterogeneously dense, which limits the sensitivity of mammography. FINDINGS: Mammogram: No new masses, suspicious calcifications, or areas of asymmetry or distortion are identified. The images were reviewed using the CAD system. Ultrasound: A bilateral breast sonogram was performed. There are mildly dilated ducts in the subareolar regions bilaterally. There is a small amount of debris in some of these ducts. There are small cysts in the subareolar regions bilaterally. There is a very tiny benign-appearing hypoechoic lesion in the 4:00 position of the left breast. No suspicious mass, shadowing or distortion is identified. No definite intraductal masses are identified. The underlying implants appear intact. Procedure Note Yue Rosario MD - 01/01/2018 BILATERAL DIAGNOSTIC DIGITAL IMPLANT MAMMOGRAMS WITH CAD BILATERAL BREAST SONOGRAM, LIMITED DATE: 01/01/2018 HISTORY: Breast implants. Recent episodes of bilateral bloody nipple discharge. TECHNIQUE: A bilateral diagnostic mammogram was performed. COMPARISON: 02/06/2017, 07/17/2011 BREAST COMPOSITION: Heterogeneously dense, which limits the sensitivity of mammography. FINDINGS: Mammogram: No new masses, suspicious calcifications, or areas of asymmetry or distortion are identified. The images were reviewed using the CAD system. Ultrasound: A bilateral breast sonogram was performed. There are mildly dilated ducts in the subareolar regions bilaterally. There is a small amount of debris in some of these ducts. There are small cysts in the subareolar regions bilaterally. There is a very tiny benign-appearing hypoechoic lesion in the 4:00 position of the left breast. No suspicious mass, shadowing or distortion is identified. No definite intraductal masses are identified. The underlying implants appear intact. IMPRESSION: Bilateral breast implants. Negative and stable bilateral diagnostic mammogram. Mildly dilated ducts and occasional cysts, otherwise negative bilateral subareolar breast sonogram. If the bloody nipple discharge persists, recommend further evaluation with breast MRI. Overall Assessment: BI-RADS Category: 2. Benign finding(s). Dictation Location: [facility] Danny Chan MD MAMMO ORDERABLES Final Result * CERV/VAG CYTOPATH, THIN PREP IMAGR RFLX HPV (05/16/2017 11:14 AM CDT) CLINICAL INFORMATION SEE COMMENT 05/23/2017 10:31 AM CDT [facility] Comment:Information not prov ided LAST MENSTRUAL PERIOD SEE COMMENT 05/23/2017 10:31 AM CDT [facility] Comment:INFORMATION NOT PROV IDED PREV PAP: SEE COMMENT 05/23/2017 10:31 AM CDT [facility] Comment:INFORMATION NOT PROV IDED PREV BX: SEE COMMENT 05/23/2017 10:31 AM CDT [facility] Comment:INFORMATION NOT PROV IDED SOURCE Endocervix 05/23/2017 10:31 AM CDT [facility] ADEQUACY: SEE COMMENT 05/23/2017 10:31 AM CDT [facility] Comment: Satisfactory for evaluation. Endocervical/transformation zone component absent. Age and/or menstrual status not provided PAP INTERP SEE COMMENT 05/23/2017 10:31 AM CDT [facility] Comment:Negative for intraep ithelial lesion or malignancy. CYTOLOGY INFECTION SEE COMMENT 05/23 10:31 AM CDT [facility] Comment: Fungal organisms morphologically consistent with Dominique spp. COMMENT SEE COMMENT 05/23/2017 10:31 AM CDT [facility] Comment: This Pap test has been evaluated with computer assisted technology. BIRDCAGE ASSEMBLER: SEE COMMENT 2016 10:31 AM CDT [facility] Comment: TMK, CT(ASCP) CT screening location: [place] [address] [address] [place] [address] Genital SWAB OF ENDOCERVIX / Unknown Collection / Unknown 05/16/2017 11:14 AM CDT 05/16/2017 8:09 PM CDT Narrative [facility] - 05/23/2017 10:31 AM CDT Performing Organization Information: Site ID: [facility] Address: [facility] [address] [place] [address] Director: Chad Lemos MD us Rock Bullock MD PATHOLOGY/CYTOLOGY ORDERABLES Fi nal Result [facility] * POC OCCULT BLOOD 1 CARD (04/01/2014 1:30 PM CDT) OCCULT BLOOD #1 Negative Negative [facility] Stool specimen (specimen) 04/01/2014 1:30 PM CDT us Rock Bullock MD POINT OF CARE TESTING Final Resu lt [facility] from Last 3 Months or Most Recently Relevant to Health Maintenance Insurance [facility] [id number] Care Teams Label Folder Relationship Specialty Start Date End Date Tessy Francois DO [address] [place] [address] PCP - General 11/17/15
--- OUTSIDE RECORDS SUMMARY | 2025-01-06 23:08 | XMS_ITS | Encounter Summary ---
Author Organization [employer] Address [address] [place] [address] Care Team Providers Care Gut Cleaner Name Role Phone Priscila Tessy Britte Primary Care Provider +1 [phone] Encounter Details Date Type Department Care Team (Late st Contact Info) Description 12/29/2008 Outpatient Historical [facility] [place], Authorized P NO ADDRESS ON FILE Manjit Mendiola MD NO ADDRESS ON FILE Social History Tobacco Use Types Packs/Day Years Used Date Smoking Tobacco: Never Assessed Comments Unknown Sex and Gender Information Value Date Recorded Sex Assigned at Not on file Legal Sex Female 5:28 AM NUCLEAR LOGGING ENGINEER Gender Identity Not on file Sexual Orientation Not on file documented as of this encounter Plan of Treatment Not on file documented as of this encounter Procedures Procedure Name Priority Date/Time Associated Diagnosis Comments CT HEAD WO CONTRAST Routine 12/29/2008 4 :15 PM NUCLEAR LOGGING ENGINEER CBC WITH DIFFERENTIAL Stat 12/29/2008 2:48 PM NUCLEAR LOGGING ENGINEER C-REACTIVE PROTEIN Stat 12/29/2008 2: 48 PM NUCLEAR LOGGING ENGINEER COMPREHENSIVE METABOLIC PANEL Stat 12/29/2008 2:48 PM NUCLEAR LOGGING ENGINEER documented in this encounter Results * CT HEAD WO CONTRAST (12/29/2008 4:15 PM NUCLEAR LOGGING ENGINEER) Anatomical Region Laterality Modality Head Other 12/29/2008 4:15 PM NUCLEAR LOGGING ENGINEER Narrative 12/29/2008 4:28 PM [facility] [address] [place], [place] [address] Admit Date: 12/29/2008 ZEINA COLE Sex: F Admit Prov: ER, AUTHORIZED P Date: 1960 Primary Care Prov: NADIA PEÑALOZA CMRN: [id number] [id number] [facility] Ordering Prov: N/A Accession Number: [id number] Interpretation CT head without contrast 12/29/2008.. History: Dizziness. Blurred vision. Technique: Contiguous 5 mm unenhanced images were obtained through the head. Findings: The ventricles are normal in size and position without midline shift or mass effect. No hemorrhage or parenchymal lesion is seen. There are no abnormal extra-axial collections. The bony structures are intact. Impression: Unremarkable CT study of the head. . Dictated by: MEG CHEUNG 12/29/2008 16:26 Electronically signed by: MEG CHEUNG 12/29/2008 16:27 Procedure Note Meg Cheung 12/29/2008 [facility] [address] [place], [place] [address] Admit Date: 12/29/2008 ZEINA COLE Sex: F Admit Prov: ER, AUTHORIZED P Date: 1960 Primary Care Prov: NADIA PEÑALOZA CMRN: [id number] [facility] [id number] IMAGING SERVICES Ordering Prov: N/A Interpretation CT head without contrast 12/29/2008.. History: Dizziness. Blurred vision. Technique: Contiguous 5 mm unenhanced images were obtained throughthe head. Findings: The ventricles are normal in size and position withoutmidline shift or mass effect. No hemorrhage or parenchymal lesion is seen.There are no abnormal extra-axial collections. The bony structures areintact. Impression: Unremarkable CT study of the head. . Dictated by: MEG CHEUNG 12/29/2008 16:26 Electronically signed by: MEG CHEUNG 12/29/2008 16:[address] ORDERABLES Final Result * C-REACTIVE PROTEIN (12/29/2008 2:48 PM NUCLEAR LOGGING ENGINEER) CRP 0.3 0.0 - 0.8 mg/dL [facility] Blood specimen (specimen) 12/29/2008 2:48 PM NUCLEAR LOGGING ENGINEER 12/29/2008 3:01 PM NUCLEAR LOGGING ENGINEER Manjit Mendiola MD CHEMISTRY ORDERABLES Final R esult INTERFACE SYSTEM Refer to clinic/hospital department [facility] CLIA# [id number] [address] [place] [address] * (ABNORMAL) COMPREHENSIVE METABOLIC PANEL (12/29/2008 2:48 PM NUCLEAR LOGGING ENGINEER) CREATININE 0.67 0.51 - 0.95 mg/dL [facility] SODIUM 136 135 - 145 mmol/L [facility] ALT 26 0 - 31 U/L [facility] ALKALINE PHOSPHATASE 46 35 - 104 U/L [facility] BILIRUBIN TOTAL 0.4 0.2 - 1.0 mg/dL [facility] CO2 26 22 - 30 mmol/L [facility] TOTAL PROTEIN 6.6 6.3 - 8.6 g/dL [facility] POTASSIUM 4.0 3.5 - 4.9 mmol/L [facility] GLUCOSE 119(H) 65 - 99 mg/dL [facility] AST 22 12 - 32 U/L [facility] BUN 8 6 - 20 mg/dL [facility] CALCIUM 9.3 8.6 - 10.2 mg/dL [facility] CHLORIDE 101 96 - 108 mmol/L [facility] ALBUMIN 4.0 3.4 - 4.8 g/dL [facility] GFR, >60 >=60 mL/min/1. 7 sq meter [facility] GFR >60 >=60 mL/min/1. 7 sq meter [facility] Comment: Modification of Diet in Renal Disease (MDRD) study formula. Estimated GFR rate interpretative information for both Americans and non- Americans is available on the [facility] Intranet at: [email or web address] Select: Lab Policies and Procedures Select: Reference Ranges - GFR Blood specimen (specimen) 12/29/2008 2:48 PM NUCLEAR LOGGING ENGINEER 12/29/2008 3:01 PM NUCLEAR LOGGING ENGINEER us Manjit Mendiola MD CHEMISTRY ORDERABLES Edited INTERFACE SYSTEM Refer to clinic/hospital department [facility] CLIA# [id number] [address] [place], [place] [address] * (ABNORMAL) CBC WITH DIFFERENTIAL (12/29/2008 2:48 PM NUCLEAR LOGGING ENGINEER) RDW-STDEV 43.8 37.1 - 48.7 fL [facility] RBC 4.38 3.90 - 4.90 M/uL [facility] MCHC 33.8 31.5 - 35.5 % [facility] MCV 95.2 82.0 - 99.0 fL [facility] PLATELETS 304 140 - 350 K/uL [facility] HEMOGLOBIN 14.1 11.8 - 14.8 g/dL [facility] RDW 12.6 11.5 - 14.5 % [facility] WBC 11.0(H) 4.0 - 9.8 K/uL [facility] MCH 32.2 27.2 - 32.6 pg [facility] MPV 10.2 9.3 - 12.4 fL [facility] HEMATOCRIT 41.7 35.5 - 44.0 % [facility] MONOCYTES 4 3 - 13 % [facility] MONOCYTE ABSOLUTE 0.47 0.10 - 1.30 K/uL [facility] NEUTROPHILS 78(H) 45 - 70 % [facility] NEUTROPHIL ABSOLUTE 8.58(H) 1.90 - 7.00 K/uL [facility] EOSINOPHILS 1 0 - 7 % [facility] EOSINOPHIL ABSOLUTE 0.05 0.00 - 0.70 K/uL [facility] LYMPHOCYTES 17 16 - 45 % [facility] LYMPHOCYTE ABSOLUTE 1.89 0.70 - 4.50 K/uL [facility] BASOPHILS 0 0 - 2 % [facility] BASOPHILS ABSOLUTE 0.03 0.00 - 0.20 K/uL [facility] Blood specimen (specimen) 12/29/2008 2:48 PM NUCLEAR LOGGING ENGINEER 12/29/2008 3:01 PM NUCLEAR LOGGING ENGINEER us Manjit Mendiola MD HEMATOLOGY ORDERABLES Edited INTERFACE SYSTEM Refer to clinic/hospital department [facility] CLIA# [id number] [address] [place] [address] documented in this encounter Visit Diagnoses Not on filedocumented in this encounter Care Teams Gut Cleaner Relationship Specialty Start Date End Date Tessy Francois DO [address] [place] [address] PCP - General 11/17/15 documented as of this encounter
--- NOTE | 2025-01-06 23:29 | PC.NURSE ---
Pt and approached triage desk stating they were going to leave due to wait times. Pt stated she is going to go see her pcp in the morning. Pt ambulated to ED exit with steady gait and no signs for concern at this time.
--- OUTSIDE RECORDS SUMMARY | 2025-01-06 23:50 | XMS_ITS | Encounter Summary ---
Author Organization [facility] Address [address] Attn: Epic Prelude ADT [place] [address] Care Team Providers Care Wireless Internet Installer Name Role Phone Tessy Francois DO Primary Care Provider +1 [phone] Encounter Details Date Type Department Care Team (Late st Contact Info) Description 08/27/2007 Outpatient Historical Amari Emmanuel MD NO ADDRESS ON FILE Social History Tobacco Use Types Packs/Day Years Used Date Smoking Tobacco: Never Assessed Comments Unknown Sex and Gender Information Value Date Recorded Sex Assigned at Not on file Legal Sex Female 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
--- OUTSIDE RECORDS SUMMARY | 2025-01-06 23:50 | XMS_ITS | Encounter Summary ---
Author Organization [email or web address] Address 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 Gender Identity Not on file Sexual [...] INTERFACE SYSTEM 08/29/2007 6:00 AM CDT us [employer] Ying CHEMISTRY ORDERABLES Edited Performing Organization Address [facility] de Phone Number INTERFACE SYSTEM Refer [...] classifications for lipids are available on the [facility] Intranet at: [email or web address] Select: Lab Policies and Procedures,Current Select: Lipid Panel Interpretation 08/29/2007 6:00 AM CDT us [employer] Ying CHEMISTRY ORDERABLES Edited Performing Organization Address [facility] de Phone Number INTERFACE SYSTEM Refer to clinic/hospital department * PHOSPHORUS (08/29/2007 6:00 AM CDT) PHOSPHORUS 4.0 2.5 - 4.5 mg/dL INTERFACE SYSTEM 08/29/2007 6:00 AM CDT us [employer] Ying CHEMISTRY ORDERABLES Edited Performing Organization Address City/[facility] Co de Phone Number INTERFACE SYSTEM Refer to clinic/hospital department * MAGNESIUM LEVEL (08/29/2007 6:00 AM CDT) MAGNESIUM 2.2 1.5 - 2.5 mg/dL INTERFACE SYSTEM 08/29/2007 6:00 AM CDT us [employer] Ying CHEMISTRY ORDERABLES Edited Performing Organization Address City/State/[facility] de Phone Number INTERFACE SYSTEM Refer to clinic/hospital department * TROPONIN (W/REFLEX CKMB/CK) (08/28/2007 11:35 PM CDT) TROPONIN T 0.01 <=0.03 ng/mL INTERFACE SYSTEM TROPONIN T INTERP Negative INTERFACE SYSTEM 08/28/2007 11:3 5 PM CDT Viangel Ying CHEMISTRY ORDERABLES Edited Performing Organization Address [facility] de Phone Number INTERFACE SYSTEM Refer [...] MD URINE ORDERABLES Edited Performing Organization Address [facility] Phone Number INTERFACE SYSTEM Refer to clinic/hospital department * TROPONIN (W/REFLEX CKMB/CK) (08/28/2007 5:13 PM CDT) TROPONIN T <0.01 <=0.03 ng/mL INTERFACE SYSTEM TROPONIN T INTERP Negative INTERFACE SYSTEM 08/28/2007 5:13 PM CDT Haley Ying CHEMISTRY ORDERABLES Edited Performing Organization Address [facility] de Phone Number INTERFACE SYSTEM Refer to clinic/hospital department * TROPONIN (W/REFLEX CKMB/CK) (08/28/2007 2:52 PM CDT) TROPONIN T <0.01 <=0.03 ng/mL INTERFACE SYSTEM TROPONIN T INTERP Negative INTERFACE SYSTEM 08/28/2007 2:52 PM CDT Ajsánchez Ying CHEMISTRY ORDERABLES Edited Performing Organization Address City/[facility] Co de Phone Number INTERFACE SYSTEM [...] MD HEMATOLOGY ORDERABLES Edited Performing Organization Address [facility] de Phone Number INTERFACE SYSTEM Refer to clinic/hospital department * (ABNORMAL) CBC WITH DIFFERENTIAL (08/27/2007 5:15 PM CDT) Pathologist [facility] WBC 9.1 4.0 - 9.8 K/uL INTERFACE [...] and non- Americans is available on the [facility] Intranet at: [email or web address] Select: Lab Policies and Procedures [...] Primary documented in this encounter Care Teams Family Helper Relationship Specialty Start Date End Date Tessy Francois DO [address] [place] [address] PCP - General 11/17/15 documented as of this encounter
--- OUTSIDE RECORDS SUMMARY | 2025-01-06 23:50 | XMS_ITS | Encounter Summary ---
Author Organization [employer] Address [address] [place] [address] Care Team Providers Care Top Frame Maker Name Role Phone Tessy Francois DO Primary Care Provider [phone] [phone] Encounter Details Date Type Department Care Team (Late st Contact Info) Description 08/29/2007 Outpatient Historical [facility] 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
--- OUTSIDE RECORDS SUMMARY | 2025-01-06 23:50 | XMS_ITS | Encounter Summary ---
Author Organization [employer] [facility] Address 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 400 Result Assessment: Higher Risk of Leucopenia. Higher Likelihood of Response. Metabolite: 6-MMPN Result (Units: pmole/8x10^8 RBC): 2516 Reference Range: <5700 Result Assessment: Lower Risk of Hepatotoxicity. Test Performed By: [employer], [place], [place] [facility] Specimen of unknown material (specimen) 07/13/2009 12:26 PM CDT 07/13/2009 12:36 PM CDT us Sujatha Prado MD CHEMISTRY ORDERABLES Edited Performing Organization Address [facility]/ZIP Co de Phone Number [facility] CLIA# [id number] [address] [place] [address] * VITAMIN B12 (07/13/2009 12:26 PM CDT) Pathologist [facility] VITAMIN B12 303 211 - 946 pg/mL [facility] Comment: It has been reported that between 5 to 10% of patients with values between 200 and 400 pg/mL may experience neuropsychiatric and hematologic abnormalities due to occult B12 deficiency. Less than 1% of patients with values above 400 pg/mL will have symptoms. Blood specimen (specimen) 07/13/2009 12:26 PM CDT 07/13/2009 12:36 PM CDT us Sujatha Prado MD CHEMISTRY ORDERABLES Edited [facility] CLIA# [id number] [address] [place] [address] * TSH (07/13/2009 12:26 PM CDT) [facility] TSH 0.98 0.27 - 4.20 uU/mL [facility] Blood specimen (specimen) 07/13/2009 12:26 PM CDT 07/13/2009 12:36 PM CDT Sujatha Prado MD CHEMISTRY ORDERABLES Final Resu lt [facility] CLIA# [id number] [address] [address] * (ABNORMAL) CBC WITH DIFFERENTIAL (07/13/2009 12:26 PM CDT) [facility] RDW 16.4(H) 11.5 - 14.5 % [facility] WBC 8.8 4.0 - 9.8 K/uL [facility] MCH 36.7(H) 27.2 - 32.6 pg [facility] MPV 10.1 9.3 - 12.4 fL [facility] HEMATOCRIT 39.9 35.5 - 44.0 % [facility] RDW-STDEV 63.0(H) 37.1 - 48.7 fL [facility] RBC 3.73(L) 3.90 - 4.90 M/uL [facility] MCHC 34.3 31.5 - 35.5 % [facility] MCV 107.0(H) 82.0 - 99.0 fL [facility] PLATELETS 380(H) 140 - 350 K/uL [facility] HEMOGLOBIN 13.7 11.8 - 14.8 g/dL [facility] LYMPHOCYTES 7(L) 16 - 45 % [facility] LYMPHOCYTE ABSOLUTE 0.60(L) 0.70 - 4.50 K/uL [facility] BASOPHILS 0 0 - 2 % [facility] BASOPHILS ABSOLUTE 0.02 0.00 - 0.20 K/uL [facility] MONOCYTES 2(L) 3 - 13 % [facility] MONOCYTE ABSOLUTE 0.18 0.10 - 1.30 K/uL [facility] NEUTROPHILS 91(H) 45 - 70 % [facility] NEUTROPHIL ABSOLUTE 7.94(H) 1.90 - 7.00 K/uL [facility] EOSINOPHILS 0 0 - 7 % [facility] EOSINOPHIL ABSOLUTE 0.01 0.00 - 0.70 K/uL [facility] Blood specimen (specimen) 07/13/2009 12:26 PM CDT 07/13/2009 12:36 PM CDT Sujatha Prado MD HEMATOLOGY ORDERABLES Edited [facility] CLIA# [id number] [address] [place] [address] documented in this encounter Visit Diagnoses Diagnosis Regional enteritis of unspecified site (CMS/HCC) Regional enteritis of unspecified site documented in this encounter Care Teams Outreach Clinician Relationship Specialty Start Date End Date Tessy Francois DO [address] [place] [address] PCP - General 11/17/15 documented as of this encounter
--- OUTSIDE RECORDS SUMMARY | 2025-01-06 23:50 | XMS_ITS | Encounter Summary ---
Author Organization [facility] Address 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 DIFFICILE DETECTION Routine 10/26/2008 7:52 AM UPHOLSTERY INSTRUCTOR FECAL LEUKOCYTES STAIN Routine 10/26/2008 7:52 AM UPHOLSTERY INSTRUCTOR OVA AND PARASITE SCREEN Routine 10/26/2008 7:52 AM UPHOLSTERY INSTRUCTOR documented in this encounter Results * CLOSTRIDIUM DIFFICILE TOXIN (10/26/2008 7:52 AM UPHOLSTERY INSTRUCTOR) FINAL REPORT NO Clostridium difficile Toxin A or B detected by EIA. A negative result does not rule out C. difficile associated diarrhea or colitis. [facility] Stool specimen (specimen) 10/26/2008 7:52 AM UPHOLSTERY INSTRUCTOR 10/26/2008 8:13 AM UPHOLSTERY INSTRUCTOR us Sujatha Prado MD MICROBIOLOGY - GENERAL ORDERABL ES Final Result Performing Organization Address [facility] de Phone Number INTERFACE SYSTEM Refer to clinic/hospital department [facility] CLIA# [id number] [address] [place] [address] * OVA AND PARASITE SCREEN (10/26/2008 7:52 AM UPHOLSTERY INSTRUCTOR) PRELIMINARY REPORT Pending [facility] FINAL REPORT Concentration : No ova or parasites seen. Trichrome: No ova or parasites seen. [facility] Stool specimen (specimen) 10/26/2008 7:52 AM UPHOLSTERY INSTRUCTOR 10/26/2008 8:15 AM UPHOLSTERY INSTRUCTOR Narrative INTERFACE SYSTEM - 11/02/2008 7:09 AM UPHOLSTERY INSTRUCTOR Performed by [id number] [address] Performed by [employer] [address] us Sujatha Prado MD MICROBIOLOGY - GENERAL ORDERABL ES Final Result Performing Organization Address [facility] Phone Number INTERFACE SYSTEM Refer to clinic/hospital department [facility] CLIA# [id number] [address] [place] [address] * FECAL LEUKOCYTES STAIN (10/26/2008 7:52 AM UPHOLSTERY INSTRUCTOR) FINAL REPORT Few WBC's seen [facility] Stool specimen (specimen) 10/26/2008 7:52 AM UPHOLSTERY INSTRUCTOR 10/26/2008 8:13 AM UPHOLSTERY INSTRUCTOR us Sujatha Prado MD MICROBIOLOGY - GENERAL ORDERABL ES Final Result Performing Organization Address City/[facility] de Phone Number INTERFACE SYSTEM Refer to clinic/hospital department [facility] CLIA# [id number] [address] [place] [address] * STOOL CULTURE (SILVANO,SHIG,CAMPY,[id number]) (10/26/2008 7:52 AM UPHOLSTERY INSTRUCTOR) PRELIMINARY REPORT No Salmonella isolated. No Shigella isolated. No Escherichia coli serogroup O157:H7 isolated. [facility] FINAL REPORT No Salmonella isolated. No Shigella isolated. No Escherichia coli serogroup O157:H7 isolated. No Camplylobacter isolated. [facility] Stool specimen (specimen) 10/26/2008 7:52 AM UPHOLSTERY INSTRUCTOR 10/26/2008 8:17 AM UPHOLSTERY INSTRUCTOR us Sujatha Prado MD MICROBIOLOGY - GENERAL ORDERABL ES Final Result INTERFACE SYSTEM Refer to clinic/hospital department [facility] CLIA# [id number] [address] [place] [address] documented in this encounter Visit Diagnoses Not on filedocumented in this encounter Care Teams Yarn Mercerizer Operator Helper Relationship Specialty Start Date End Date Tessy Francois DO [address] [place] [address] PCP - General 11/17/15 documented as of this encounter
--- OUTSIDE RECORDS SUMMARY | 2025-01-06 23:50 | XMS_ITS | Encounter Summary ---
Author Organization [employer] Address [address] [place] [address] Care Team Providers Care Umbrella Mender Name Role Phone Tessy Francois DO Primary Care Provider [phone] Encounter Details Date Type Department Care Team (Late st Contact Info) Description 08/28/2007 Outpatient Historical [facility] Support Serv. (Adt Cardiology-[facility]) [address] 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
--- OUTSIDE RECORDS SUMMARY | 2025-01-06 23:50 | XMS_ITS | Encounter Summary ---
Author Organization [employer] Address [address] [place] [address] Care Team Providers Care Marketing Executive Name Role Phone Priscila Tessy Britte Primary Care Provider [phone] Encounter Details Date Type Department Care Team (Late st Contact Info) Description 09/24/2008 Outpatient Historical [facility] Nadia Sarabia MD Social History Tobacco Use Types Packs/Day Years Used Date Smoking Tobacco: Never Assessed Comments Unknown Sex and Gender Information Value Date Recorded Sex Assigned at Not on file Legal Sex Female 5:28 AM NO EXPERIENCE Gender Identity Not on file Sexual Orientation [...] AM CDT Narrative 09/28/2008 11:12 AM CDT [facility] [address] [place], [place] [address] Admit Date: 09/24/2008 ZEINA COLE Sex: F Admit Prov: NADIA SARABIA Date: 1960 Primary Care Prov: NADIA SARABIA CMRN: [id number] Room: [facility] SSN: [id number] IMAGING SERVICES Ordering Prov: N/A Accession Number: [id number] Interpretation SMALL BOWEL SERIES, 09/28/2008 Clinical History: Crohn's disease, right lower quadrant abdominal pain, possible jejunal intussusception seen on recent abdominal CT. Findings: A preliminary abdominal document management analyst radiograph is not remarkable. Following oral administration [...] Procedure Note Tristan Cates MD - 09/28/2008 [facility] [address] [place], [place] [address] Admit Date: 09/24/2008 COLE ZEINA Carolina Sex: F Admit Prov: NADIA SARABIA Date: 1960 Primary Care Prov: NADIA SARABIA CMRN: [id number] Room: [facility] SSN: [id number] IMAGING SERVICES Ordering Prov: N/A Interpretation SMALL BOWEL SERIES, 09/28/2008 Clinical History: Crohn's disease, right lower quadrant abdominalpain, possible jejunal intussusception seen on recent abdominal CT. Findings: A preliminary abdominal document management analyst radiograph is notremarkable. Following oral administration of [...] ALKALINE PHOSPHATASE 66 35 - 104 U/L [facility] ALT 14 0 - 31 U/L [facility] CHLORIDE 98 96 - 108 mmol/L [facility] AST 15 12 - 32 U/L [facility] BUN 7 6 - 20 mg/dL [facility] TOTAL PROTEIN 6.5 6.3 - 8.6 g/dL [facility] BILIRUBIN TOTAL 0.3 0.2 - 1.0 mg/dL [facility] CREATININE 0.76 0.51 - 0.95 mg/dL [facility] CO2 27 22 - 30 mmol/L [facility] ALBUMIN 3.7 3.4 - 4.8 g/dL [facility] SODIUM 132(L) 135 - 145 mmol/L [facility] CALCIUM 8.8 8.6 - 10.2 mg/dL [facility] GLUCOSE 123(H) 65 - 99 mg/dL [facility] POTASSIUM 3.2(L) 3.5 - 4.9 mmol/L [facility] GFR, >60 >=60 mL/min/1. 7 sq meter [facility] GFR >60 >=60 mL/min/1. 7 sq meter [facility] Comment: Modification of Diet in Renal Disease (MDRD) study formula. Estimated GFR rate interpretative information for both Americans and non- Americans is available on the [facility] Intranet at: [email or web address] Select: Lab Policies and Procedures Select: Reference Ranges - GFR Blood specimen (specimen) 09/24/2008 2:27 PM CDT 09/24/2008 2:33 PM CDT Nadia Sarabia MD CHEMISTRY ORDERABLES Edited INTERFACE SYSTEM Refer to clinic/hospital department [facility] CLIA# [id number] [address] [facility] [address] [place] [address] * (ABNORMAL) CBC WITH DIFFERENTIAL (09/24/2008 2:27 PM CDT) WBC 8.0 4.0 - 9.8 K/uL [facility] MCH 32.1 27.2 - 32.6 pg [facility] MPV 10.2 9.3 - 12.4 fL [facility] HEMATOCRIT 38.8 35.5 - 44.0 % [facility] RDW-STDEV 43.3 37.1 - 48.7 fL [facility] RBC 4.02 3.90 - 4.90 M/uL [facility] MCHC 33.2 31.5 - 35.5 % [facility] MCV 96.5 82.0 - 99.0 fL [facility] PLATELETS 312 140 - 350 K/uL [facility] HEMOGLOBIN 12.9 11.8 - 14.8 g/dL [facility] RDW 12.3 11.5 - 14.5 % [facility] MONOCYTES 9 3 - 13 % [facility] MONOCYTE ABSOLUTE 0.75 0.10 - 1.30 K/uL [facility] NEUTROPHILS 71(H) 45 - 70 % [facility] NEUTROPHIL ABSOLUTE 5.70 1.90 - 7.00 K/uL [facility] EOSINOPHILS 3 0 - 7 % [facility] EOSINOPHIL ABSOLUTE 0.20 0.00 - 0.70 K/uL [facility] LYMPHOCYTES 16 16 - 45 % [facility] LYMPHOCYTE ABSOLUTE 1.30 0.70 - 4.50 K/uL [facility] BASOPHILS 1 0 - 2 % [facility] BASOPHILS ABSOLUTE 0.05 0.00 - 0.20 K/uL [facility] Blood specimen (specimen) 09/24/2008 2:27 PM CDT 09/24/2008 2:33 PM CDT us Nadia Sarabia MD HEMATOLOGY ORDERABLES Edited INTERFACE SYSTEM Refer to clinic/hospital department [facility] CLIA# [id number] [address] [facility] [address] [address] * CT ABDOMEN PELVIS W CONTRAST (09/24/2008 2:12 PM CDT) Anatomical Region Laterality Modality Abdomen Other 09/24/2008 2:12 PM CDT Narrative 09/24/2008 4:46 PM CDT [facility] [address], [place] [address] Admit Date: 09/24/2008 ZEINA COLE Sex: F Admit Prov: NADIA SARABIA Date: 1960 Primary Care Prov: NADIA SAARBIA CMRN: [id number] Room: [facility] SSN: [id number] IMAGING SERVICES Ordering Prov: N/A Accession Number: [id number] Interpretation CT SCAN OF THE ABDOMEN AND [...] Procedure Note Olimpia Cavanaugh MD - 09/24/2008 [facility] [address] [place], [place] [address] Admit Date: 09/24/2008 ZEINA COLE Sex: F Admit Prov: NADIA SARABIA Date: 1960 Primary Care Prov: NADIA SARABIA CMRN: [id number] Room: [facility] SSN: [id number] IMAGING SERVICES Ordering Prov: N/A Interpretation CT [...] CREATININE POC 0.8 0.6 - 1.3 mg/dL [facility] GFR, >60 >=60 mL/min/1.7 sq meter [facility] GFR >60 >=60 mL/min/1.7 sq meter [facility] Capillary blood specimen (specimen) 09/24/2008 2:05 PM CDT 09/24/2008 2:05 PM CDT us Nadia Sarabia MD POINT OF CARE TESTING Edited INTERFACE SYSTEM Refer to clinic/hospital department [facility] CLIA# [id number] [address] [place] [address] documented in this encounter Visit Diagnoses Not on filedocumented in this encounter Care Teams Marketing Executive Relationship Specialty Start Date End Date Tessy Francois DO [address] [place] [address] PCP - General 11/17/15 documented as of this encounter
--- OUTSIDE RECORDS SUMMARY | 2025-01-06 23:50 | XMS_ITS | Encounter Summary ---
Author Organization [facility] Address [address] [place] [address] Care Team Providers Care Agricultural Service Technician Name Role Phone Priscila Tessydasha Mchugh Primary Care Provider [phone] Encounter Details Date Type Department Care Team (Latest Contact Info) Description 05/18/2009 Outpatient Historical HIS 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 Gender Identity Not on file Sexual Orientation [...] CDT) CALCIUM 9.6 8.6 - 10.2 mg/dL [facility] CHLORIDE 100 96 - 108 mmol/L [facility] ALBUMIN 4.4 3.4 - 4.8 g/dL [facility] CREATININE 0.67 0.51 - 0.95 mg/dL [facility] SODIUM 139 135 - 145 mmol/L [facility] ALT 13 0 - 31 U/L [facility] ALKALINE PHOSPHATASE 48 35 - 104 U/L [facility] BILIRUBIN TOTAL 0.4 0.2 - 1.0 mg/dL [facility] CO2 26 22 - 30 mmol/L [facility] TOTAL PROTEIN 7.2 6.3 - 8.6 g/dL [facility] POTASSIUM 4.0 3.5 - 4.9 mmol/L [facility] GLUCOSE 109(H) 65 - 99 mg/dL [facility] AST 15 12 - 32 U/L [facility] BUN 7 6 - 20 mg/dL [facility] GFR, >60 >=60 mL/min/1. 7 sq meter [facility] GFR >60 >=60 mL/min/1. 7 sq meter [facility] Comment: Modification of Diet in Renal Disease (MDRD) study formula. Estimated GFR rate interpretative information for both Americans and non- Americans is available on the [facility] Intranet at: [email or web address] Select: Lab Policies and Procedures Select: Reference Ranges - GFR 05/18/2009 4:50 PM CDT 05/18/2009 5:14 PM CDT us Sujatha Prado MD CHEMISTRY ORDERABLES Edited INTERFACE SYSTEM Refer to clinic/hospital department [facility] CLIA# [id number] [address] [place] [address] * C-REACTIVE PROTEIN (05/18/2009 4:50 PM CDT) [facility] CRP 0.5 0.0 - 0.8 mg/dL [facility] 05/18/2009 4:50 PM CDT 05/18/2009 5:14 PM CDT us Sujatha Prado MD CHEMISTRY ORDERABLES Final Resu lt INTERFACE SYSTEM Refer to clinic/hospital department [facility] CLIA# [id number] [address] [place] [address] * (ABNORMAL) CBC WITH DIFFERENTIAL (05/18/2009 4:50 PM CDT) [facility] RBC 3.59(L) 3.90 - 4.90 M/uL [facility] MCHC 33.9 31.5 - 35.5 % [facility] MCV 102.8(H) 82.0 - 99.0 fL [facility] PLATELETS 373(H) 140 - 350 K/uL [facility] HEMOGLOBIN 12.5 11.8 - 14.8 g/dL [facility] RDW 14.1 11.5 - 14.5 % [facility] WBC 8.3 4.0 - 9.8 K/uL [facility] MCH 34.8(H) 27.2 - 32.6 pg [facility] MPV 10.1 9.3 - 12.4 fL [facility] HEMATOCRIT 36.9 35.5 - 44.0 % [facility] RDW-STDEV 52.3(H) 37.1 - 48.7 fL [facility] MONOCYTES 7 3 - 13 % [facility] MONOCYTE ABSOLUTE 0.62 0.10 - 1.30 K/uL [facility] NEUTROPHILS 73(H) 45 - 70 % [facility] NEUTROPHIL ABSOLUTE 6.06 1.90 - 7.00 K/uL [facility] EOSINOPHILS 2 0 - 7 % [facility] EOSINOPHIL ABSOLUTE 0.16 0.00 - 0.70 K/uL [facility] LYMPHOCYTES 18 16 - 45 % [facility] LYMPHOCYTE ABSOLUTE 1.46 0.70 - 4.50 K/uL [facility] BASOPHILS 1 0 - 2 % [facility] BASOPHILS ABSOLUTE 0.04 0.00 - 0.20 K/uL [facility] 05/18/2009 4:50 PM CDT 05/18/2009 5:12 PM CDT us Sujatha Prado MD HEMATOLOGY ORDERABLES Edited INTERFACE SYSTEM Refer to clinic/hospital department [facility] CLIA# [id number] [address] [place] [address] documented in this encounter Visit Diagnoses Diagnosis Regional enteritis of unspecified site (CMS/HCC) Regional enteritis of unspecified site documented in this encounter Care Teams Agricultural Service Technician Relationship Specialty Start Date End Date Tessy Francois DO [address] [place] [address] PCP - General 11/17/15 documented as of this encounter
--- OUTSIDE RECORDS SUMMARY | 2025-01-06 23:50 | XMS_ITS | Patient Health Summary ---
Author Organization [facility] [employer] Address [address] [place] [address] Care Team Providers Care Fish Housekeeper Name Role Phone Dillan Woody MD Primary Care Provider [phone] Note from [facility],non-owned Affiliates and Associated Physician Practices is amultiple site organization consisting of ambulatory clinics and hospital sitesin [place], [place], [place] and [place]. This disclosure is being madepursuant to the Care Everywhere program and may not contain all information available regarding this patient. Last updated 18.[facility] Allergies * Ciprofloxacin(Rash at infusion site immediately [...] daily. * Cyanocobalamin (NASCOBAL) 500 MCG/0.1ML SOLN [place] 1 Squirt into the nose every 7 [...] 36.3 C (97.3 F) 01/07/2011 8:00 AM VICE PRESIDENT OF TALENT ACQUISITION Respiratory Rate 18 01/07/2011 8:00 AM VICE PRESIDENT OF TALENT ACQUISITION Oxygen Saturation 100% 01/05/2011 8:00 PM VICE PRESIDENT OF TALENT ACQUISITION Inhaled Oxygen Concentration - - Weight 73.9 [...] ICD9 [facility] ACCOUNT BILL Comment:V72.31 ; Routine customer marketing intern ecological examination Performed by [facility] ACCOUNT BILL [...] Thin Prep Vial Resulting Agency Comment [facility] [address] [id number] Rock Bullock MD LAB - PATHOLOGY/CYTO LOGY ORDERABLES [facility] ACCOUNT BILL * MAMMO DIAG DIRECT DIGITAL IMAGE UNIL LEFT (08/13/2011) Anatomical Region Laterality Modality Left Other Rock Bullock MD MAMMO ORDERABLES * MAMMOGRAPHY ORDER (07/17/2011) Anatomical Region Laterality Modality Other Rock Bullock MD MAMMO ORDERABLES * (ABNORMAL) CBC W AUTO DIFFERENTIAL (01/06/2011 4:05 AM VICE PRESIDENT OF TALENT ACQUISITION) WBC 10.0 4.5 - 11.0 1000/mm3 [facility] RBC 2.74(L) 4.2 - 5.4 10X6 [facility] Hemoglobin 10.1(L) 12.0 - 16.0 gm/dl [facility] Hematocrit 29.9(L) 36.0 - 48.0 % [facility] MCV 109.1(H) 80.0 - 99.0 fl [facility] MCH 36.9(H) 25.0 - 31.0 pg [facility] MCHC 33.8 32.0 - 36.0 gm/dl [facility] RDW 14.1 11.5 - 14.5 % [facility] Platelet Count 205 130.0 - 400.0 1000/mm3 [facility] Granulocytes % 78.9(H) 40.0 - 70.0 % [facility] Lymphocytes % 9.8(L) 22.0 - 40.0 % [facility] Monocytes % 10.8(H) 2.0 - 10.0 % [facility] Eosinophils % 0.2 0.0 - 6.0 % [facility] Basophils % 0.3 0.0 - 3.0 % [facility] Granulocytes Absolute 7.92(H) 1.8 - 7.7 [facility] Lymphocytes Absolute 0.98(L) 1.0 - 5.4 [facility] Monocytes Absolute 1.08 0.1 - 1.1 [facility] Eosinophils Absolute 0.02 0.0 - 0.7 [facility] Basophils Absolute 0.03 0.0 - 0.2 [facility] Comment Manual Diff Not Indicated [facility] BLOOD SPECIMEN / Unknown 01/06/2011 4:05 AM VICE PRESIDENT OF TALENT ACQUISITION 01/06/2011 4:33 AM VICE PRESIDENT OF TALENT ACQUISITION Rock Bullock MD LAB - HEMATOLOGY ORD ERABLES [facility] [address] [place] [address] * XR ABDOMEN 1 VW (01/05/2011 9:58 AM VICE PRESIDENT OF TALENT ACQUISITION) Anatomical Region Laterality Modality Abdomen Radiographic Kavya ging 01/05/2011 10:1 4 AM VICE PRESIDENT OF TALENT ACQUISITION Impressions 01/05/2011 10:14 AM VICE PRESIDENT OF TALENT ACQUISITION Normal KUB Narrative 01/05/2011 10:14 AM VICE PRESIDENT OF TALENT ACQUISITION Abdomen KUB Indication: Evaluate for retained surgical instrument Single supine view of abdomen demonstrates a nonspecific bowel gas pattern without evidence of soft tissue mass or abnormal calcifications. No foreign bodies are identified. Procedure Note Jonathan Cote MD - 01/05/2011 Abdomen KUB Indication: Evaluate for retained surgical instrument Single supine view of abdomen demonstrates a nonspecific bowel gas pattern without evidence of soft tissue mass or abnormal calcifications. No foreign bodies are identified. IMPRESSION Normal KUB Rock Bullock MD DIAGNOSTIC IMAGING O RDERABLES * GROSS + MICRO EXAM (01/05/2011 9:06 AM VICE PRESIDENT OF TALENT ACQUISITION) [facility] Surgeon Dr. Bullock [facility] Grossed By ANANTH VELA [facility] Gross Report [facility] Comment: SURGEON: Dr. Bullock COPY [...] up to about 0.7 cm in diameter. [employer] Internship sections of the specimen are submitted as follows: A-B. Anterior and posterior cervix. C-D. Anterior and posterior endomyometrium and serosa. E-H. Possible myomas with largest myoma in G and H. I-J. Left and right ovaries and tubes. LW/angie Microscopic Examination [facility] Comment: MICROSCOPIC: The section of [...] The fallopian tubes are normal. BYRON/yoel Diagnosis [facility] Comment: DIAGNOSIS: 1. Uterus, total abdominal hysterectomy with bilateral salpingo- oophorectomy: Cervix: -- No pathologic diagnosis Endometrium: -- Weakly proliferative pattern Myometrium: -- Leiomyomata -- Adenomyosis Ovary, left: -- Follicular cyst Ovary, right: -- Hemorrhagic corpus luteum Fallopian tubes, bilateral: -- No pathologic diagnosis BYRON/yoel Released by Prema BENITEZ [facility] CPT Code 85039 [facility] HYSTERECTOMY AND BILATERAL SALPINGO-OOPHORECTOM Y SPECIMEN / Unknown 01/05/2011 9:06 AM VICE PRESIDENT OF TALENT ACQUISITION 01/05/2011 9:06 AM VICE PRESIDENT OF TALENT ACQUISITION Rock Bullock MD LAB - PATHOLOGY/CYTO LOGY ORDERABLES Performing Organization Address [facility] Co de Phone Number [facility] [address] [place] [address] * HCG URINE QUALITATIVE - POINT OF CARE (01/05/2011 6:15 AM VICE PRESIDENT OF TALENT ACQUISITION) HCG Qual Urine neg Negative [facility] POCT TEST[facility] QC Verified yes Yes [facility] POC T TESTING Urine specimen (specimen) URINE / Unknown 01/05/2011 6:15 AM VICE PRESIDENT OF TALENT ACQUISITION Paul Stevenson MD LAB - POINT OF CARE ORDERABLES Performing Organization Address [facility] Co de Phone Number [facility] [address] [place] [address] * HGB HCT PANEL (01/05/2011 6:10 AM VICE PRESIDENT OF TALENT ACQUISITION) Hemoglobin 13.2 12.0 - 16.0 gm/dl [facility] Hematocrit 38.0 36.0 - 48.0 % [facility] BLOOD SPECIMEN / Unknown 01/05/2011 6:10 AM VICE PRESIDENT OF TALENT ACQUISITION 01/05/2011 6:18 AM VICE PRESIDENT OF TALENT ACQUISITION Rock Bullock MD LAB - HEMATOLOGY ORD ERABLES Performing Organization Address [facility] de Phone Number [facility] [address] [place] [address] * US PELVIS WITH TRANSVAG NON OB (12/26/2010 8:19 AM VICE PRESIDENT OF TALENT ACQUISITION) Anatomical Region Laterality Modality Pelvis Ultrasound 12/26/2010 10:1 6 AM VICE PRESIDENT OF TALENT ACQUISITION Impressions 12/26/2010 10:31 AM VICE PRESIDENT OF TALENT ACQUISITION The uterus is grossly enlarged, lobulated in contour, and heterogeneous in echotexture, consistent with the presence of multiple myomata. The ovaries are sonographically unremarkable. Narrative 12/26/2010 10:31 AM VICE PRESIDENT OF TALENT ACQUISITION ULTRASOUND PELVIS - TRANSABDOMINAL/TRANSVAGINAL WITH DOPPLER Indication: [...] unremarkable. Rock Bullock MD ORDERABLES Care Teams Fish Housekeeper Relationship Specialty Start Date End Date Dillan Woody MD PCP - General Internal Medicine 02/26/12
--- OUTSIDE RECORDS SUMMARY | 2025-01-06 23:50 | XMS_ITS | Encounter Summary ---
Author Organization [facility] Health Address [address] [place] [address] Care Team Providers Care Quantitative Analyst Name Role Phone Rock Bullock MD Primary Care Provider [phone] Dillan Woody MD Primary Care Provider [phone] Encounter Details Date Type Department Care Team (Late st Contact Info) Description 12/28/2010 [facility] Outpatient Visit EXTERNAL NON-[facility] DEPT Rock Bullock MD [address] [place] [address] Social History Tobacco Use Types [...] on filedocumented in this encounter Care Teams Quantitative Analyst Relationship Specialty Start Date End Date Rock Bullock MD [address] [place] [address] PCP - General 12/26/10 02/25/12 Dillan Woody MD [address] [place] [address] PCP - General Internal Medicine 02/26/12 documented as of this encounter
--- OUTSIDE RECORDS SUMMARY | 2025-01-06 23:50 | XMS_ITS | Encounter Summary ---
Author Organization [facility] Address [address] [place] [address] Care Team Providers Care Spare Hand Name Role Phone Tessy Francois DO Primary Care Provider [phone] Encounter Details Date Type Department Care Team (Late st Contact Info) Description 08/28/2007 Outpatient Historical [facility] Supp Sv[facility] Blood Flow [address] [place] [address] Riaz Alvarado MD NO ADDRESS ON FILE Social History Tobacco Use Types Packs/Day Years Used Date Smoking Tobacco: Never Assessed Comments Unknown Sex and Gender Information Value Date Recorded Sex Assigned at Not on file Legal Sex Female 5:28 AM FIELD LIABILITY GENERALIST Gender Identity Not on file Sexual Orientation Not on file documented as of this encounter Plan of Treatment Not on file documented as of this encounter Visit Diagnoses Not on filedocumented in this encounter Care Teams Spare Hand Relationship Specialty Start Date End Date Tessy Francois DO [address] [place] [address] PCP - General 11/17/15 documented as of this encounter
--- OUTSIDE RECORDS SUMMARY | 2025-01-06 23:50 | XMS_ITS | Referral Summary ---
Author Organization [facility] docplanner Address [address] [facility] [place] [address] Care Team Providers Care Service Associate Name Role Phone Dillan Woody MD Primary Care Provider [phone] Source Comments [facility] docplanner,non-owned Affiliates and Associated Physician Practices is amultiple site organization consisting of ambulatory clinics and hospital sitesin [place], [place]. This disclosure is being madepursuant to the Care Everywhere program and may not contain all information available regarding this patient. Last updated 18.[facility] docplanner Allergies Active Allergy Reactions Criticality Noted Date [...] daily. Active Cyanocobalamin (NASCOBAL) 500 MCG/0.1ML SOLN [place] 1 Squirt into the nose every 7 [...] 36.3 C (97.3 F) 01/07/2011 8:00 AM MANAGER EQUIPMENT Respiratory Rate 18 01/07/2011 8:00 AM MANAGER EQUIPMENT Oxygen Saturation 100% 01/05/2011 8:00 PM MANAGER EQUIPMENT Inhaled Oxygen Concentration - - Weight 73.9 [...] ICD9 [facility] ACCOUNT BILL Comment:V72.31 ; Routine cad cam programmer ecological examination Performed by [facility] ACCOUNT BILL [...] CYTYC Thin Prep Vial Resulting Agency Comment [facility] [id number] Rock Bullock MD LAB - PATHOLOGY/CYTO LOGY [...] 10:33 PM 01/04/2011 8:00 PM Care Teams Service Associate Relationship Specialty Start Date End Date Dillan Woody MD PCP - General Internal Medicine 02/26/12
--- OUTSIDE RECORDS SUMMARY | 2025-01-06 23:50 | XMS_ITS | Encounter Summary ---
Author Organization [facility] Address [address] [place] [address] Care Team Providers Care Cv Tech Name Role Phone FrancoisTessy verduzco Primary Care Provider [phone] Encounter Details Date Type Department Care Team (Latest Contact Info) Description 12/06/2008 Outpatient Historical HIS [facility] [place] [facility] Sujatha Ledesma MD [address] [place] [address] Regional Enteritis of Large Intestine (CMS/HCC) Social History Tobacco Use Types Packs/Day Years Used Date Smoking Tobacco: Never Assessed Comments Unknown Sex and Gender Information Value Date Recorded Sex Assigned at Not on file Legal Sex Female 5:28 AM FAMILY SPECIALIST Gender Identity Not on file Sexual Orientation Not on file documented as of this encounter Plan of Treatment Not on file documented as of this encounter Procedures Procedure Name Priority Date/Time Associated Diagnosis Comments MISCELLANEOUS LAB TEST Routine 9 10:17 AM FAMILY SPECIALIST documented in this encounter Results * MISCELLANEOUS LAB TEST (12/06/2008 10:17 AM FAMILY SPECIALIST) TEST NAME TPMT [facility] SPECIMEN TYPE Blood [facility] MISCELLANEOUS LAB TEST Name of Test: TPMT Test Result: TPMT*1/TPMT*1 Alleles present are associated with Normal Enzyme Activity Reference Range: TPMT*1/TPMT*1 Test Performed By: [employer] [employer] [place], [place] [facility] Specimen of unknown material (specimen) 12/06/2008 10:17 AM FAMILY SPECIALIST 12/06/2008 10:34 AM FAMILY SPECIALIST Narrative INTERFACE SYSTEM - 12/09/2008 8:39 AM FAMILY SPECIALIST Name of test:tpmt genotype us Sujatha Prado MD CHEMISTRY ORDERABLES Edited INTERFACE SYSTEM Refer to clinic/hospital department [facility] CLIA# [id number] [address] [place] [address] documented in this encounter Visit Diagnoses Diagnosis Regional enteritis of large intestine (CMS/HCC) Regional enteritis of large intestine documented in this encounter Care Teams Cv Tech Relationship Specialty Start Date End Date Tessy Francois DO [address] [place] [address] PCP - General 11/17/15 documented as of this encounter
--- OUTSIDE RECORDS SUMMARY | 2025-01-06 23:50 | XMS_ITS | Encounter Summary ---
Author Organization [facility] Address [address] [place] [address] Care Team Providers Care Elementary Instructional Coach Name Role Phone Priscila Tessydasha Mchugh Primary Care Provider [phone] Encounter Details Date Type Department Care Team (Latest Contact Info) Description 01/26/2009 Outpatient Historical HIS [facility] Sujatha Ledesma MD [address] [place] [address] Regional Enteritis of Unspecified Site (CMS/HCC) Social History Tobacco Use Types Packs/Day Years Used Date Smoking Tobacco: Never Assessed Comments Unknown Sex and Gender Information Value Date Recorded Sex Assigned at Not on file Legal Sex Female 5:28 AM PEDIATRIC ANESTHESIOLOGIST Gender Identity Not on file Sexual Orientation Not on file documented as of this encounter Plan of Treatment Not on file documented as of this encounter Procedures Procedure Name Priority Date/Time Associated Diagnosis Comments CBC WITH DIFFERENTIAL Routine 01/26/2009 4:41 PM PEDIATRIC ANESTHESIOLOGIST documented in this encounter Results * (ABNORMAL) CBC WITH DIFFERENTIAL (01/26/2009 4:41 PM PEDIATRIC ANESTHESIOLOGIST) RBC 4.32 3.90 - 4.90 M/uL [facility] MCHC 33.2 31.5 - 35.5 % [facility] MCV 97.0 82.0 - 99.0 fL [facility] PLATELETS 317 140 - 350 K/uL [facility] HEMOGLOBIN 13.9 11.8 - 14.8 g/dL [facility] RDW 13.2 11.5 - 14.5 % [facility] WBC 12.1(H) 4.0 - 9.8 K/uL [facility] MCH 32.2 27.2 - 32.6 pg [facility] MPV 10.5 9.3 - 12.4 fL [facility] HEMATOCRIT 41.9 35.5 - 44.0 % [facility] RDW-STDEV 46.5 37.1 - 48.7 fL [facility] MONOCYTE ABSOLUTE 0.82 0.10 - 1.30 K/uL [facility] LYMPHOCYTES 16 16 - 45 % [facility] NEUTROPHIL ABSOLUTE 9.16(H) 1.90 - 7.00 K/uL [facility] NEUTROPHILS 76(H) 45 - 70 % [facility] EOSINOPHILS 1 0 - 7 % [facility] EOSINOPHIL ABSOLUTE 0.06 0.00 - 0.70 K/uL [facility] LYMPHOCYTE ABSOLUTE 1.96 0.70 - 4.50 K/uL [facility] BASOPHILS 0 0 - 2 % [facility] BASOPHILS ABSOLUTE 0.05 0.00 - 0.20 K/uL [facility] MONOCYTES 7 3 - 13 % [facility] Blood specimen (specimen) 01/26/2009 4:41 PM PEDIATRIC ANESTHESIOLOGIST 01/26/2009 5:07 PM PEDIATRIC ANESTHESIOLOGIST us Sujatha Prado MD HEMATOLOGY ORDERABLES Edited INTERFACE SYSTEM Refer to clinic/hospital department [facility] CLIA# [id number] [address] [place] [address] documented in this encounter Visit Diagnoses Diagnosis Regional enteritis of unspecified site (CMS/HCC) Regional enteritis of unspecified site documented in this encounter Care Teams Elementary Instructional Coach Relationship Specialty Start Date End Date Tessy Francois DO [address] [place] [id number] PCP - General 11/17/15 documented as of this encounter
--- OUTSIDE RECORDS SUMMARY | 2025-01-06 23:50 | XMS_ITS | Encounter Summary ---
Author Organization [facility] Address [address] [place] [address] Care Team Providers Care Golf Instructor Name Role Phone Priscila Tessydasha Mchugh Primary Care Provider [phone] Encounter Details Date Type Department Care Team (Latest Contact Info) Description 03/10/2009 Outpatient Historical HIS [facility] Sujatha Ledesma MD [address] [place] [address] Regional Enteritis of Unspecified Site (CMS/HCC) Social History Tobacco Use Types Packs/Day Years Used Date Smoking Tobacco: Never Assessed Comments Unknown Sex and Gender Information Value Date Recorded Sex Assigned at Not on file Legal Sex Female 5:28 AM ENERGY BROKER Gender Identity Not on file Sexual Orientation [...] CDT) CALCIUM 9.5 8.6 - 10.2 mg/dL [facility] CHLORIDE 101 96 - 108 mmol/L [facility] ALBUMIN 4.5 3.4 - 4.8 g/dL [facility] CREATININE 0.77 0.51 - 0.95 mg/dL [facility] SODIUM 138 135 - 145 mmol/L [facility] ALT 46(H) 0 - 31 U/L [facility] ALKALINE PHOSPHATASE 54 35 - 104 U/L [facility] BILIRUBIN TOTAL 0.3 0.2 - 1.0 mg/dL [facility] CO2 28 22 - 30 mmol/L [facility] TOTAL PROTEIN 7.2 6.3 - 8.6 g/dL [facility] POTASSIUM 3.9 3.5 - 4.9 mmol/L [facility] GLUCOSE 96 65 - 99 mg/dL [facility] AST 33(H) 12 - 32 U/L [facility] BUN 7 6 - 20 mg/dL [facility] GFR, >60 >=60 mL/min/1.7 sq meter [facility] GFR >60 >=60 mL/min/1.7 sq meter [facility] Comment: Modification of Diet in Renal Disease (MDRD) study formula. Estimated GFR rate interpretative information for both Americans and non- Americans is available on the [facility] Intranet at: [email or web address] Select: Lab Policies and Procedures Select: Reference Ranges - GFR Blood specimen (specimen) 03/10/2009 2:33 PM CDT 03/10/2009 3:22 PM CDT Sujatha Prado MD CHEMISTRY ORDERABLES Edited INTERFACE SYSTEM Refer to clinic/hospital department [facility] CLIA# [id number] [address] [place] [place] [address] * (ABNORMAL) CBC WITH DIFFERENTIAL (03/10/2009 2:33 PM CDT) RBC 4.13 3.90 - 4.90 M/uL [facility] MCHC 32.7 31.5 - 35.5 % [facility] MCV 101.5(H) 82.0 - 99.0 fL [facility] PLATELETS 315 140 - 350 K/uL [facility] HEMOGLOBIN 13.7 11.8 - 14.8 g/dL [facility] RDW 14.3 11.5 - 14.5 % [facility] WBC 7.6 4.0 - 9.8 K/uL [facility] MCH 33.2(H) 27.2 - 32.6 pg [facility] MPV 10.5 9.3 - 12.4 fL [facility] HEMATOCRIT 41.9 35.5 - 44.0 % [facility] RDW-STDEV 52.8(H) 37.1 - 48.7 fL [facility] NEUTROPHILS 67 45 - 70 % [facility] NEUTROPHIL ABSOLUTE 5.13 1.90 - 7.00 K/uL [facility] EOSINOPHILS 2 0 - 7 % [facility] EOSINOPHIL ABSOLUTE 0.17 0.00 - 0.70 K/uL [facility] LYMPHOCYTES 21 16 - 45 % [facility] LYMPHOCYTE ABSOLUTE 1.60 0.70 - 4.50 K/uL [facility] BASOPHILS 1 0 - 2 % [facility] BASOPHILS ABSOLUTE 0.05 0.00 - 0.20 K/uL [facility] MONOCYTES 9 3 - 13 % [facility] MONOCYTE ABSOLUTE 0.66 0.10 - 1.30 K/uL [facility] Blood specimen (specimen) 03/10/2009 2:33 PM CDT 03/10/2009 3:24 PM CDT us Sujatha Prado MD HEMATOLOGY ORDERABLES Edited INTERFACE SYSTEM Refer to clinic/hospital department [facility] CLIA# [id number] [address] [place] [address] documented in this encounter Visit Diagnoses Diagnosis Regional enteritis of unspecified site (CMS/HCC) Regional enteritis of unspecified site documented in this encounter Care Teams Golf Instructor Relationship Specialty Start Date End Date Tessy Francois DO [address] [place] [address] PCP - General 11/17/15 documented as of this encounter
--- OUTSIDE RECORDS SUMMARY | 2025-01-06 23:50 | XMS_ITS | Encounter Summary ---
Author Organization [employer] Address [address] [place] [address] Care Team Providers Care Animal Killer Name Role Phone Tessy Francois DO Primary Care Provider [phone] Encounter Details Date Type Department Care Team (Late st Contact Info) Description 10/07/2008 Outpatient Historical HIS [facility] Madelyn Rae MD [address] [facility] [address] [place] [address] Regional Enteritis of Unspecified Site (CMS/HCC) Social History Tobacco Use Types Packs/Day Years Used Date Smoking Tobacco: Never Assessed Comments Unknown Sex and Gender Information Value Date Recorded Sex Assigned at Not on file Legal Sex Female 5:28 AM TIMBER TRIMMER Gender Identity Not on file Sexual Orientation Not on file documented as of this encounter Plan of Treatment Not on file documented as of this encounter Procedures Procedure Name Priority Date/Time Associated Diagnosis Comments PATHOLOGY Routine 10/07/2008 3:22 PM TIMBER TRIMMER STOOL CULTURE (SILVANO,SHIG,CAMPY,ECO 157) Routine 10/07/2008 3:17 PM TIMBER TRIMMER C. DIFFICILE DETECTION Routine 10/07/2008 3:17 PM TIMBER TRIMMER OVA AND PARASITE SCREEN Routine 10/07/2008 3:17 PM TIMBER TRIMMER POC , URINE Routine 10/07/2008 1:40 PM TIMBER TRIMMER documented in this encounter Results * PATHOLOGY (10/07/2008 3:22 PM TIMBER TRIMMER) FINAL REPORT [facility] [address] [place], [place] [address] Patient: ZEINA COLE : 1960 Procedure Date: 10/07/2008 Accession Date: 10/07/2008 Case No: [id number] Ordering Dr: MADELYN RAE Case types AW, BW, FW, NW and SH are performed by [facility], [place], [place] SURGICAL PATHOLOGY & NON-GYNECOLOGIC CYTOPATHOLOGY REPORT [...] 04:36 pm Microscopic: The slides are labeled [id number], Zeina Cole. Sections of the left colon [...] 09:19 am INTERFACE SYSTEM 10/07/2008 3:22 PM TIMBER TRIMMER us Madelyn Rae MD PATHOLOGY/CYTOLOGY ORDERABLE S Final Result INTERFACE SYSTEM Refer to clinic/hospital department * OVA AND PARASITE SCREEN (10/07/2008 3:17 PM TIMBER TRIMMER) PRELIMINARY REPORT Pending [facility] FINAL REPORT Concentration : No ova or parasites seen. Trichrome: No ova or parasites seen. [facility] 10/07/2008 3:17 PM TIMBER TRIMMER 10/07/2008 4:43 PM TIMBER TRIMMER Narrative INTERFACE SYSTEM - 10/14/2008 10:48 AM TIMBER TRIMMER fax to dr rae [facility] by [facility], [address] [place] [id number] Performed by [address] [address] Madelyn Rae MD MICROBIOLOGY - GENERAL ORDER DIVINE Final Result Performing Organization Address [facility] Phone Number INTERFACE SYSTEM Refer to clinic/hospital department [facility] CLIA# [id number] [address] [place] [address] * STOOL CULTURE (SILVANO,SHIG,CAMPY,[id number]) (10/07/2008 3:17 PM TIMBER TRIMMER) PRELIMINARY REPORT No Salmonella isolated. No Shigella isolated. No Escherichia coli serogroup O157:H7 isolated. [facility] FINAL REPORT No Salmonella isolated. No Shigella isolated. No Escherichia coli serogroup O157:H7 isolated. No Camplylobacter isolated. [facility] 10/07/2008 3:17 PM TIMBER TRIMMER 10/07/2008 4:43 PM TIMBER TRIMMER Narrative INTERFACE SYSTEM - 10/10/2008 7:51 AM TIMBER TRIMMER fax to dr rae Madelyn Rae MD MICROBIOLOGY - GENERAL ORDER DIVINE Final Result Performing Organization Address [facility] Co de Phone Number INTERFACE SYSTEM Refer to clinic/hospital department [facility] CLIA# [id number] [address] [place] [address] * CLOSTRIDIUM DIFFICILE TOXIN (10/07/2008 3:17 PM TIMBER TRIMMER) FINAL REPORT NO Clostridium difficile Toxin A or B detected by EIA. A negative result does not rule out C. difficile associated diarrhea or colitis. [facility] Stool specimen (specimen) 10/07/2008 3:17 PM TIMBER TRIMMER 10/07/2008 4:43 PM TIMBER TRIMMER Narrative INTERFACE SYSTEM - 10/08/2008 3:11 PM TIMBER TRIMMER fax to dr rae Madelyn Rae MD MICROBIOLOGY - GENERAL ORDER DIVINE Final Result Performing Organization Address [facility] de Phone Number INTERFACE SYSTEM Refer to clinic/hospital department [facility] CLIA# [id number] [address] [place] [address] * POC , URINE (10/07/2008 1:40 PM TIMBER TRIMMER) , URINE POC Negative Negative [facility] Urine specimen (specimen) 10/07/2008 1:40 PM TIMBER TRIMMER 10/07/2008 1:40 PM TIMBER TRIMMER Madelyn Rae MD POINT OF CARE TESTING Final Result Performing Organization Address [facility] de Phone Number INTERFACE SYSTEM Refer to clinic/hospital department [facility] CLIA# [id number] [address] [place] [address] documented in this encounter Visit Diagnoses Diagnosis Regional enteritis of unspecified site (CMS/HCC) Regional enteritis of unspecified site documented in this encounter Care Teams Animal Killer Relationship Specialty Start Date End Date Tessy Francois DO [address] [place] [address] PCP - General 11/17/15 documented as of this encounter
--- OUTSIDE RECORDS SUMMARY | 2025-01-06 23:50 | XMS_ITS | Encounter Summary ---
Author Organization [facility] Address [address] [place] [address] Care Team Providers Care Farm Owner Operator Name Role Phone Priscila Tessydasha Mchugh Primary Care Provider [phone] Encounter Details Date Type Department Care Team (Latest Contact Info) Description 04/18/2009 Outpatient Historical HIS [facility] Sujatha Ledesma MD [address] [place] [address] Regional Enteritis of Unspecified Site (CMS/HCC) Social History Tobacco Use Types Packs/Day Years Used Date Smoking Tobacco: Never Assessed Comments Unknown Sex and Gender Information Value Date Recorded Sex Assigned at Not on file Legal Sex Female 5:28 AM FELLER OPERATOR Gender Identity Not on file Sexual [...] CDT) GLUCOSE 151(H) 65 - 99 mg/dL [facility] AST 17 12 - 32 U/L [facility] BUN 11 6 - 20 mg/dL [facility] CALCIUM 9.2 8.6 - 10.2 mg/dL [facility] CHLORIDE 102 96 - 108 mmol/L [facility] ALBUMIN 4.1 3.4 - 4.8 g/dL [facility] CREATININE 0.67 0.51 - 0.95 mg/dL [facility] SODIUM 138 135 - 145 mmol/L [facility] ALT 14 0 - 31 U/L [facility] ALKALINE PHOSPHATASE 61 35 - 104 U/L [facility] BILIRUBIN TOTAL 0.4 0.2 - 1.0 mg/dL [facility] CO2 25 22 - 30 mmol/L [facility] TOTAL PROTEIN 7.0 6.3 - 8.6 g/dL [facility] POTASSIUM 3.6 3.5 - 4.9 mmol/L [facility] GFR, >60 >=60 mL/min/1. 7 sq meter [facility] GFR >60 >=60 mL/min/1. 7 sq meter [facility] Comment: Modification of Diet in Renal Disease (MDRD) study formula. Estimated GFR rate interpretative information for both Americans and non- Americans is available on the [facility] Intranet at: [email or web address] Select: Lab Policies and Procedures Select: Reference Ranges - GFR Blood specimen (specimen) 04/18/2009 1:13 PM CDT 04/18/2009 2:00 PM CDT Sujatha Prado MD CHEMISTRY ORDERABLES Edited INTERFACE SYSTEM Refer to clinic/hospital department [facility] CLIA# [id number] [address] [place] [address] * (ABNORMAL) CBC WITH DIFFERENTIAL (04/18/2009 1:13 PM CDT) MCV 101.5(H) 82.0 - 99.0 fL [facility] PLATELETS 319 140 - 350 K/uL [facility] HEMOGLOBIN 13.3 11.8 - 14.8 g/dL [facility] RDW 14.1 11.5 - 14.5 % [facility] WBC 7.2 4.0 - 9.8 K/uL [facility] MCH 33.9(H) 27.2 - 32.6 pg [facility] MPV 10.3 9.3 - 12.4 fL [facility] HEMATOCRIT 39.8 35.5 - 44.0 % [facility] RDW-STDEV 52.2(H) 37.1 - 48.7 fL [facility] RBC 3.92 3.90 - 4.90 M/uL [facility] MCHC 33.4 31.5 - 35.5 % [facility] EOSINOPHILS 1 0 - 7 % [facility] EOSINOPHIL ABSOLUTE 0.10 0.00 - 0.70 K/uL [facility] LYMPHOCYTES 21 16 - 45 % [facility] LYMPHOCYTE ABSOLUTE 1.50 0.70 - 4.50 K/uL [facility] BASOPHILS 0 0 - 2 % [facility] BASOPHILS ABSOLUTE 0.03 0.00 - 0.20 K/uL [facility] MONOCYTES 5 3 - 13 % [facility] MONOCYTE ABSOLUTE 0.37 0.10 - 1.30 K/uL [facility] NEUTROPHILS 72(H) 45 - 70 % [facility] NEUTROPHIL ABSOLUTE 5.15 1.90 - 7.00 K/uL [facility] Blood specimen (specimen) 04/18/2009 1:13 PM CDT 04/18/2009 1:53 PM CDT us Sujatha Prado MD HEMATOLOGY ORDERABLES Edited INTERFACE SYSTEM Refer to clinic/hospital department [facility] CLIA# [id number] [address] [place] [address] documented in this encounter Visit Diagnoses Diagnosis Regional enteritis of unspecified site (CMS/HCC) Regional enteritis of unspecified site documented in this encounter Care Teams Farm Owner Operator Relationship Specialty Start Date End Date Tessy Francois DO [address] [place] [address] PCP - General 11/17/15 documented as of this encounter
--- OUTSIDE RECORDS SUMMARY | 2025-01-06 23:50 | XMS_ITS | Clinical Summary ---
Author Organization [facility] Address [address] [place] [address] Care Team Providers Care Business Management Intern Name Role Phone Dillan Woody MD Primary Care Provider [phone] Source Comments [facility],non-owned Affiliates and Associated Physician Practices is amultiple site organization consisting of ambulatory clinics and hospital sitesin [place], [place], [place] and [place]. This disclosure is being madepursuant to the Care Everywhere program and may not contain all information available regarding this patient. Last updated 18.[facility] Allergies Active Allergy Reactions Criticality Noted Date [...] daily. Active Cyanocobalamin (NASCOBAL) 500 MCG/0.1ML SOLN [place] 1 Squirt into the nose every 7 [...] 36.3 C (97.3 F) 01/07/2011 8:00 AM WOOD SETTER Respiratory Rate 18 01/07/2011 8:00 AM WOOD SETTER Oxygen Saturation 100% 01/05/2011 8:00 PM WOOD SETTER Inhaled Oxygen Concentration - - Weight 73.9 [...] ICD9 [facility] ACCOUNT BILL Comment:V72.31 ; Routine obgyn specialist ecological examination Performed by [facility] ACCOUNT BILL [...] Thin Prep Vial Resulting Agency Comment [facility] [address] [id number] Rock Bullock MD LAB - PATHOLOGY/CYTO LOGY [...] 10:33 PM 01/04/2011 8:00 PM Care Teams Business Management Intern Relationship Specialty Start Date End Date Dillan Woody MD PCP - General Internal Medicine 02/26/12
--- OUTSIDE RECORDS SUMMARY | 2025-01-06 23:51 | XMS_ITS | Clinical Summary ---
Author Organization [facility] Administrative Offices Address [address] [place] [address] Care Team Providers Care Property Utilization Manager Name Role Phone Tessy Francois DO Primary Care Provider [phone] Allergies Active Allergy Reactions Criticality Noted Date Comments Cephalexin Anaphylaxis High 02/26/2013 Ciprofloxacin Unknown 02/26/2013 Hydrocodone Itching Low 04/01/2014 Unclassified Drug Seizure High 05/16/2017 spirolactine Medications FLUoxetine (PROZAC) 20 mg Oral tablet Take 1 Tab by mouth daily. 30 Tab 11 3 Active azaTHIOprine (IMURAN) 50 mg Oral tablet 3 Active NASCOBAL 500 mcg Both Nostril [place] 3 Active DELZICOL 400 mg Oral CpDR [...] migh t be different from the original. Felt Carbonizer - Dr Shashank Rodriguez Problem Noted Date [...] on file Legal Sex Female 5:28 AM MARKETING EXECUTIVE Gender Identity Not on file Sexual Orientation Not on file Occupation Industry Job Start Date Job End Date Not on file Not on file Not on file Not on file Last Filed Vital Signs Vital Sign Reading Time Taken Comments Blood Pressure 136/72 12/30/2017 8:37 AM MARKETING EXECUTIVE Pulse 71 05/16/2017 10:45 AM CDT Temperature - - Respiratory Rate 17 08/11/2013 11:39 AM CDT Oxygen Saturation - - Inhaled Oxygen Concentration - - Weight 73.5 kg (162 lb) 12/30/2017 8:37 AM MARKETING EXECUTIVE Height 171.5 cm (5' 7.5 ) 12/30/2017 8:37 AM MARKETING EXECUTIVE Body Mass Index 25 12/30/2017 8:37 AM MARKETING EXECUTIVE Plan of Treatment Health Maintenance Due Date [...] OR WO CAD Routine 01/01/2018 10:27 AM MARKETING EXECUTIVE Nipple discharge, bloody CERV/VAG CYTO SCREEN PAP RLFX HPV Routine 05/16/2017 11:14 AM CDT Encounter for gynecological examination without abnormal finding POC OCCULT BLOOD 1 CARD Routine 04/01/2014 1:30 PM CDT Routine gynecological examination from Last 3 Months or Most Recently Relevant to Health Maintenance Results * MAMMO DIAGNOSTIC BILATERAL W OR WO CAD (01/01/2018 10:27 AM MARKETING EXECUTIVE) Anatomical Region Laterality Modality Breast Bilateral Mammography 01/01/2018 10:2 7 AM MARKETING EXECUTIVE Impressions 01/01/2018 2:29 PM MARKETING EXECUTIVE IMPRESSION: Bilateral breast implants. Negative and stable bilateral diagnostic mammogram. Mildly dilated ducts and occasional cysts, otherwise negative bilateral subareolar breast sonogram. If the bloody nipple discharge persists, recommend further evaluation with breast MRI. Overall Assessment: BI-RADS Category: 2. Benign finding(s). Dictation Location: [facility] 01/01/2018 2:29 PM MARKETING EXECUTIVE BILATERAL DIAGNOSTIC DIGITAL IMPLANT MAMMOGRAMS WITH CAD [...] BI-RADS Category: 2. Benign finding(s). Dictation Location: [facility] Danny Chan MD MAMMO ORDERABLES Final Result [...] has been evaluated with computer assisted technology. DATA SECURITY CONSULTANT: SEE COMMENT 2016 10:31 AM CDT [facility] Comment: TMK, CT(ASCP) CT screening location: [place] [address] Administration [place] [address] Genital SWAB OF ENDOCERVIX / Unknown Collection / Unknown 05/16/2017 11:14 AM CDT 05/16/2017 8:09 PM CDT Narrative [facility] - 05/23/2017 10:31 AM CDT Performing Organization Information: Site ID: Name: [facility] Address: [facility] Administration [place] [address] Director: Chad Lemos MD us Rock Bullock MD PATHOLOGY/CYTOLOGY ORDERABLES Fi nal Result [facility] * POC OCCULT BLOOD 1 CARD (04/01/2014 1:30 PM CDT) OCCULT BLOOD #1 Negative Negative [facility] Stool specimen (specimen) 04/01/2014 1:30 PM CDT us Rock Bullock MD POINT OF CARE TESTING Final Resu lt [facility] from Last 3 Months or Most Recently Relevant to Health Maintenance Insurance [facility] [id number] Care Teams Property Utilization Manager Relationship Specialty Start Date End Date Tessy Francois DO [address] [place] [address] PCP - General 11/17/15
--- OUTSIDE RECORDS SUMMARY | 2025-01-06 23:51 | XMS_ITS | Encounter Summary ---
Author Organization [employer] Address [address] [place] [address] Care Team Providers Care Hydrodynamicist Name Role Phone Priscila Tessy Britte Primary Care Provider [phone] Encounter Details Date Type Department Care Team [...] on file Legal Sex Female 5:28 AM POSTAL WORKER Gender Identity Not on file Sexual Orientation Not on file documented as of this encounter Plan of Treatment Not on file documented as of this encounter Procedures Procedure Name Priority Date/Time Associated Diagnosis Comments CT HEAD WO CONTRAST Routine 12/29/2008 4 :15 PM POSTAL WORKER CBC WITH DIFFERENTIAL Stat 12/29/2008 2:48 PM POSTAL WORKER C-REACTIVE PROTEIN Stat 12/29/2008 2: 48 PM POSTAL WORKER COMPREHENSIVE METABOLIC PANEL Stat 12/29/2008 2:48 PM POSTAL WORKER documented in this encounter Results * CT HEAD WO CONTRAST (12/29/2008 4:15 PM POSTAL WORKER) Anatomical Region Laterality Modality Head Other 12/29/2008 4:15 PM POSTAL WORKER Narrative 12/29/2008 4:28 PM [facility] [address] [place], [place] [address] Admit Date: 12/29/2008 ZEINA COLE Sex: F Admit Prov: ER, AUTHORIZED P Date: 1960 Primary Care Prov: NADIA PEÑALOZA CMRN: [id number] [phone] [facility] Ordering Prov: N/A Accession Number: [id number] Interpretation CT head without contrast 12/29/2008.. History: [...] 12/29/2008 16:27 Procedure Note Meg Cheung 12/29/2008 [facility] [address] [place], [place] [address] Admit Date: 12/29/2008 ZEINA COLE Sex: F Admit Prov: ER, AUTHORIZED P Date: 1960 Primary Care Prov: NADIA PEÑALOZA CMRN: [id number] [facility] [id number] IMAGING SERVICES Ordering Prov: N/A Interpretation CT [...] Result * C-REACTIVE PROTEIN (12/29/2008 2:48 PM POSTAL WORKER) CRP 0.3 0.0 - 0.8 mg/dL [facility] Blood specimen (specimen) 12/29/2008 2:48 PM POSTAL WORKER 12/29/2008 3:01 PM POSTAL WORKER Manjit Mendiloa MD CHEMISTRY ORDERABLES Final R esult INTERFACE SYSTEM Refer to clinic/hospital department [facility] CLIA# [id number] [address] [place] [address] * (ABNORMAL) COMPREHENSIVE METABOLIC PANEL (12/29/2008 2:48 PM POSTAL WORKER) CREATININE 0.67 0.51 - 0.95 mg/dL [facility] SODIUM 136 135 - 145 mmol/L [facility] ALT 26 0 - 31 U/L [facility] ALKALINE PHOSPHATASE 46 35 - 104 U/L [facility] BILIRUBIN TOTAL 0.4 0.2 - 1.0 mg/dL [facility] CO2 26 22 - 30 mmol/L [facility] TOTAL PROTEIN 6.6 6.3 - 8.6 g/dL [facility] POTASSIUM 4.0 3.5 - 4.9 mmol/L [facility] GLUCOSE 119(H) 65 - 99 mg/dL [facility] AST 22 12 - 32 U/L [facility] BUN 8 6 - 20 mg/dL [facility] CALCIUM 9.3 8.6 - 10.2 mg/dL [facility] CHLORIDE 101 96 - 108 mmol/L [facility] ALBUMIN 4.0 3.4 - 4.8 g/dL [facility] GFR, >60 >=60 mL/min/1. 7 sq meter [facility] GFR >60 >=60 mL/min/1. 7 sq meter [facility] Comment: Modification of Diet in Renal Disease (MDRD) study formula. Estimated GFR rate interpretative information for both Americans and non- Americans is available on the [facility] Intranet at: [email or web address] Select: Lab Policies and Procedures Select: Reference Ranges - GFR Blood specimen (specimen) 12/29/2008 2:48 PM POSTAL WORKER 12/29/2008 3:01 PM POSTAL WORKER us Manjit Mendiola MD CHEMISTRY ORDERABLES Edited INTERFACE SYSTEM Refer to clinic/hospital department [facility] CLIA# [id number] [address] [place], [place] [address] * (ABNORMAL) CBC WITH DIFFERENTIAL (12/29/2008 2:48 PM POSTAL WORKER) RDW-STDEV 43.8 37.1 - 48.7 fL [facility] RBC 4.38 3.90 - 4.90 M/uL [facility] MCHC 33.8 31.5 - 35.5 % [facility] MCV 95.2 82.0 - 99.0 fL [facility] PLATELETS 304 140 - 350 K/uL [facility] HEMOGLOBIN 14.1 11.8 - 14.8 g/dL [facility] RDW 12.6 11.5 - 14.5 % [facility] WBC 11.0(H) 4.0 - 9.8 K/uL [facility] MCH 32.2 27.2 - 32.6 pg [facility] MPV 10.2 9.3 - 12.4 fL [facility] HEMATOCRIT 41.7 35.5 - 44.0 % [facility] MONOCYTES 4 3 - 13 % [facility] MONOCYTE ABSOLUTE 0.47 0.10 - 1.30 K/uL [facility] NEUTROPHILS 78(H) 45 - 70 % [facility] NEUTROPHIL ABSOLUTE 8.58(H) 1.90 - 7.00 K/uL [facility] EOSINOPHILS 1 0 - 7 % [facility] EOSINOPHIL ABSOLUTE 0.05 0.00 - 0.70 K/uL [facility] LYMPHOCYTES 17 16 - 45 % [facility] LYMPHOCYTE ABSOLUTE 1.89 0.70 - 4.50 K/uL [facility] BASOPHILS 0 0 - 2 % [facility] BASOPHILS ABSOLUTE 0.03 0.00 - 0.20 K/uL [facility] Blood specimen (specimen) 12/29/2008 2:48 PM POSTAL WORKER 12/29/2008 3:01 PM POSTAL WORKER us Manjit Mendiola MD HEMATOLOGY ORDERABLES Edited INTERFACE SYSTEM Refer to clinic/hospital department [facility] CLIA# [id number] [address] [place] [address] documented in this encounter Visit Diagnoses Not on filedocumented in this encounter Care Teams Hydrodynamicist Relationship Specialty Start Date End Date Tessy Francois DO [address] [place] [address] PCP - General 11/17/15 documented as of this encounter
--- OUTSIDE RECORDS SUMMARY | 2025-01-06 23:51 | XMS_ITS | Encounter Summary ---
Author Organization [facility] Address [address] [place] [address] Care Team Providers Care Quality Assurance Nurse Name Role Phone FrancoisTessy verduzco Primary Care Provider [phone] Encounter Details Date Type Department Care Team (Latest Contact Info) Description 10/23/2008 Outpatient Historical [facility] Sujatha Ledesma MD [address] [place] [address] Functional Diarrhea Social History Tobacco Use Types Packs/Day Years Used Date Smoking Tobacco: Never Assessed Comments Unknown Sex and Gender Information Value Date Recorded Sex Assigned at Not on file Legal Sex Female 5:28 AM BRICK TENDER Gender Identity Not on file Sexual Orientation Not on file documented as of this encounter Plan of Treatment Not on file documented as of this encounter Procedures Procedure Name Priority Date/Time Associated Diagnosis Comments C-REACTIVE PROTEIN Routine 10/23/2008 8: 19 AM BRICK TENDER documented in this encounter Results * C-REACTIVE PROTEIN (10/23/2008 8:19 AM BRICK TENDER) CRP 0.2 0.0 - 0.8 mg/dL [facility] Blood specimen (specimen) 10/23/2008 8:19 AM BRICK TENDER 10/23/2008 9:00 AM BRICK TENDER us Sujatha Prado MD CHEMISTRY ORDERABLES Final Resu lt INTERFACE SYSTEM Refer to clinic/hospital department [facility] CLIA# [id number] [address] [place] [address] documented in this encounter Visit Diagnoses Diagnosis Functional diarrhea documented in this encounter Care Teams Quality Assurance Nurse Relationship Specialty Start Date End Date Tessy Francois DO [address] [place] [id number] PCP - General 11/17/15 documented as of this encounter
--- OUTSIDE RECORDS SUMMARY | 2025-01-06 23:51 | XMS_ITS | Encounter Summary ---
Author Organization [facility] Address [address] [place] [address] Care Team Providers Care Emergency Vehicle Operations Instructor Name Role Phone Priscila Tessydasha Mchugh Primary Care Provider [phone] Encounter Details Date Type Department Care Team (Late st Contact Info) Description 10/23/2008 Outpatient Historical [facility] Sarabia, MD Mago Social History Tobacco Use Types Packs/Day Years Used Date Smoking Tobacco: Never Assessed Comments Unknown Sex and Gender Information Value Date Recorded Sex Assigned at Not on file Legal Sex Female 5:28 AM FISH INSPECTOR Gender Identity Not on file Sexual Orientation Not on file documented as of this encounter Plan of Treatment Not on file documented as of this encounter Procedures Procedure Name Priority Date/Time Associated Diagnosis Comments GLUCOSE TOLERANCE, 2 HR Routine 10/23/2008 10:30 AM FISH INSPECTOR GLUCOSE FARHAT NON-GEST FOR DIABETES 2 HR Routine 10/23/2008 10:30 AM FISH INSPECTOR GLUCOSE TOLERANCE, FASTING Routine 10/23/2008 8:18 AM FISH INSPECTOR BASIC METABOLIC PANEL Routine 10/23/2008 8:18 AM FISH INSPECTOR documented in this encounter Results * GLUCOSE FARHAT NON-GEST FOR DIABETES 2 HR (10/23/2008 10:30 AM FISH INSPECTOR) COMMENT See Additional Orderables [facility] Blood specimen (specimen) 10/23/2008 10:30 AM FISH INSPECTOR 10/23/2008 10:32 AM FISH INSPECTOR Mago Sarabia MD CHEMISTRY ORDERABLES Final R esult Performing Organization Address [facility] de Phone Number INTERFACE SYSTEM Refer to clinic/hospital department [facility] CLIA# [id number] [address] [place] [address] * GLUCOSE TOLERANCE, 2 HR (10/23/2008 10:30 AM FISH INSPECTOR) GLUCOSE, 2HR 135 <=139 mg/dL [facility] Blood specimen (specimen) 10/23/2008 10:30 AM FISH INSPECTOR 10/23/2008 10:32 AM FISH INSPECTOR Mago Sarabia MD CHEMISTRY ORDERABLES Final R [facility] Performing Organization Address [facility] Phone Number INTERFACE SYSTEM Refer to clinic/hospital department [facility] CLIA# [id number] [address] [place] [address] * BASIC METABOLIC PANEL (10/23/2008 8:18 AM FISH INSPECTOR) CHLORIDE 103 96 - 108 mmol/L [facility] GLUCOSE 86 65 - 99 mg/dL [facility] SODIUM 141 135 - 145 mmol/L [facility] CALCIUM 8.6 8.6 - 10.2 mg/dL [facility] CO2 28 22 - 30 mmol/L [facility] CREATININE 0.80 0.51 - 0.95 mg/dL [facility] POTASSIUM 3.9 3.5 - 4.9 mmol/L [facility] BUN 11 6 - 20 mg/dL [facility] GFR, >60 >=60 mL/min/1.7 sq meter [facility] GFR >60 >=60 mL/min/1.7 sq meter [facility] Comment: ansiModification of Diet in Renal Disease (MDRD) study formula. Estimated GFR rate interpretative information for both Americans and non- Americans is available on the [facility] Intranet at: [email or web address] Select: Lab Policies and Procedures Select: Reference Ranges - GFR Blood specimen (specimen) 10/23/2008 8:18 AM FISH INSPECTOR 10/23/2008 9:00 AM FISH INSPECTOR Mago Sarabia MD CHEMISTRY ORDERABLES Edited Performing Organization Address [facility] de Phone Number INTERFACE SYSTEM Refer to clinic/hospital department [facility] CLIA# [id number] [address] [place] [address] * GLUCOSE TOLERANCE, FASTING (10/23/2008 8:18 AM FISH INSPECTOR) GTT INTERP, NON-GESTATION AL Based on 75 g dose: Type 1 or 2 Diabetes Mellitus Criteria: Fasting (Baseline): > = 126 mg/dL or 2 hour specimen: > = 200 mg/dL Impaired Glucose Metabolism Criteria: Fasting (Baseline): 100 - 125 mg/dL 2 hour specimen: 140 - 199 mg/dL [facility] GLUCOSE FASTING 86 <=99 mg/dL [facility] Blood specimen (specimen) 10/23/2008 8:18 AM FISH INSPECTOR 10/23/2008 9:00 AM FISH INSPECTOR us aMgo Sarabia MD CHEMISTRY ORDERABLES Final R esult Performing Organization Address [facility] de Phone Number INTERFACE SYSTEM Refer to clinic/hospital department [facility] CLIA# [id number] [address] [place] [address] documented in this encounter Visit Diagnoses Not on filedocumented in this encounter Care Teams Emergency Vehicle Operations Instructor Relationship Specialty Start Date End Date Tessy Francois DO [address] [place] [address] PCP - General 11/17/15 documented as of this encounter
== END 2025-01-06 23:29 | disposition left against medical advice (07) ==
DX: G43.909 Migraine, unspecified, not intractable, without status migrainosus (principal)
CPT/HCPCS: 99199

== ENCOUNTER 2025-01-08 10:45 | Observation (INO) | payer BC, SELFPAY ==
[2025-01-08] VITALS (7 sets, daily range): BP systolic 136–164; BP diastolic 75–87; PULSE 60–69; RESP 14–16; TEMP 36.7–37; O2SAT 95–98; BMI 25.2
--- NOTE | ~2025-01-08 | XR_ITS ---
EXAMINATION: XR chest 2V DATE: 01/08/2025 11:40 INDICATION: Chest tightness TECHNIQUE: PA and lateral views of the chest were obtained. COMPARISON: Chest radiograph dated 01/05/2024 FINDINGS: The lungs are clear with no focal airspace opacities, pulmonary edema, pleural effusion or pneumothor ax. The cardiomediastinal silhouette is normal. Chronic mild anterior wedging of a few lower thoracic vertebral bodies. IMPRESSION: 1. No acute cardiopulmonary disease. Reviewed, dictated and finalized at location B. ITY ASSEMBLER
--- NOTE | ~2025-01-08 | CT_ITS ---
EXAMINATION: CT brain wo con DATE: 01/08/2025 11:35 INDICATION: Headache TECHNIQUE: Computed tomography (CT) of the head was performed without intravenous contrast. Sagittal and coronal reconstructions were performed. The mA was adjusted according to patient size. Iterative reconstruction technique was employed. The dose-length product was 681.00 mGy-cm. COMPARISON: None FINDINGS: No acute intracranial hemorrhage, acute infarction or abnormal extra axial fluid collection. Symmetri c prominence of the sulci consistent with mild age-appropriate diffuse cerebral volume loss. Ventricl es are normal and symmetric. No mass/mass effect. The orbits, paranasal sinuses and mastoid air cells are normal. IMPRESSION: 1. Normal aging brain. No acute intracranial process. Reviewed, dictated and finalized at location B. IGHTENER
--- NOTE | 2025-01-08 10:48 | ECG_ITS ---
Test Date: 2025-01-08 10:52:12 Measurements Intervals [place] Rate: 67 P: 17 TX: 142 QRS: 89 QRSD: 92 T: 81 QT: 408 QTc: 431 Interpretive Statements SINUS RHYTHM DELAYED PRECORDIAL R/S TRANSITION CONSIDER INFERIOR INFARCT, AGE INDETERMINATE ST-T WAVE ABNORMALITY IN ANTERIOR LEADS- CONSIDER ISCHEMIA BASELINE ARTIFACT- I, II, III, AVR, AVL, AVF, V1, V4-V6 ABNORMAL ECG No previous ECG available for comparison Electronically Signed On 01-08-2025 11:04:36 FURNITURE SALES CONSULTANT by Dell Dunham D.O.
[2025-01-08 11:02] LABS: Basophils Absolute Auto 0.1 K/mm3 (0.0-0.1); Basophils Percent Auto 0.7 % (0.2-1.2); Eosinophils Absolute Auto 0.1 K/mm3 (0-0.3); Eosinophils Percent Auto 1.8 % (0-4.4); Hematocrit 46.4 % (37.0-47.0); Hemoglobin 15.6 g/dL (12.0-15.0); Immature Granulocyte Absolute 0.02 K/mm3 (0.00-0.031); Immature Granulocyte Percent A 0.3 % (0-0.5); Lymphocytes Absolute Auto 1.53 K/mm3 (0.9-3.2); Lymphocytes Percent Auto 22.4 % (18.3-44.2); Mean Corpuscular HGB Conc 33.6 g/dl (32-36); Mean Corpuscular Hemoglobin 32.8 pg (26-34); Mean Corpuscular Volume 97.7 fl (80-100); Mean Platelet Volume 9.5 fl (7.4-10.4); Monocytes Absolute Auto 0.5 K/mm3 (0.1-0.6); Monocytes Percent Auto 7.2 % (2.6-8.5); Neutrophils Absolute Auto 4.6 K/mm3 (1.3-6.7); Neutrophils Percent Auto 67.6 % (45.5-73.1); Platelet Count Result 344 k/mm3 (150-375); Red Blood Count 4.75 M/mm3 (4.2-5.4); Red Cell Distribution Width 12.3 % (11.5-14.5); White Blood Count 6.8 K/mm3 (4.5-10.0)
--- NOTE | 2025-01-08 11:16 | ED.CHESTPAIN ---
HPI - Chest Pain General Chief Complaint: Chest Pain <Karen Jones PA-C - Last Filed: 01/08/25 13:50> Stated Complaint: migraines, vomiting, sent by pcp <MIKE Lawson Last Filed: 01/08/25 13:50> Time Seen by Provider: 01/08/25 10:58 <Karen Jones PA-C - Last Filed: 01/08/25 13:50> History of Present Illness HPI narrative: 64 y/o F with history of GERD, migraines, Crohn's disease presents to the emergency department for headache and intermittent chest pain. Patient states she has had a migraine for 2 weeks. She states the pain is from druze to druze and radiates to the back of her head. Reports associated photophobia. She denies injury trauma, vision changes, focal numbness or weakness. States she has been taking aspirin and Tylenol without improvement. She came to our ED 2 days ago but left prior to being seen after stating waiting room for an hour and half. She contacted her PCP the following day and had an appointment scheduled for this morning. At her appointment her blood pressure was found to be elevated and had an EKG performed which showed T-wave inversions and ST depressions. Patient was advised to come to the ED. patient states she has had some intermittent chest tightness with left-sided neck pain for the past couple weeks. She cannot identify any aggravating or alleviating factors. She endorses exertional dyspnea. Patient states her sister dropped at of a GA at 62 years old and her niece has gone into cardiac arrest. Patient had a full cardiac workup done at [facility] around 2012 which was reportedly unremarkable but is not follow-up with a turn supervisor since. She does endorse a remote history of SVT, otherwise denies personal cardiac history. She quit smoking approximately 10 years ago. <Karen Jones PA-C - Last Filed: 01/08/25 13:50> Related Data Home Medications: Home Medications ?Medication ?Instructions ?Recorded ?Confirmed ?Last Taken ?Type propranolol 10 mg tablet 10 mg PO TID PRN anxiety 09/03/24 01/08/25 Unknown History Allergy injection QMWF 01/08/25 01/06/25 History <MIKE Lawson Filed: 01/08/25 13:50> Allergies/Adverse Reactions: Allergies Allergy/AdvReac Type Severity Reaction Status Date / Time egg Allergy Severe Nausea and Verified 01/08/25 16:25 Vomiting lecithin, soy Allergy Unknown Diarrhea Verified 01/08/25 16:25 cottage cheese Allergy Mild Diarrhea Uncoded 01/08/25 16:25 <MIKE Lawson Last Filed: 01/08/25 13:50> Review of Systems Review of Systems: All systems reviewed & are unremarkable except as noted in HPI and below <Karen Jones PA-C - Last Filed: 01/08/25 13:50> [facility], LAT[facility] Past Medical History Medical History: Medical History Hx of adenomatous colonic polyps GERD (gastroesophageal reflux disease) Nausea and vomiting Diarrhea Need for hepatitis B screening test High risk medication use Crohn disease Hypothyroidism (acquired) Eustachian tube dysfunction <MIKE Lawson Last Filed: 01/08/25 13:50> Surgical History Surgical History: Surgical History History of sinus surgery May 2024 H/O breast augmentation S/P JCAK (total abdominal hysterectomy) <MIKE Lawson Last Filed: 01/08/25 13:50> Family History Family History: Family History Mother Diabetes mellitus Depression <MIKE Lawson Last Filed: 01/08/25 13:50> Social History Social History: Social History Social History: Caffeine-tea occasionally Smoking packs per day: 1 Smoking cigarettes per day: 20.0 Years smoked: 30 Smoking pack-years: 30.00 Smoking status: Former smoker Second hand tobacco smoke exposure: No Alcohol intake: current Drinks per week: 14 Substance use: current Substance use type: marijuana Last use: 05/02/24 Do You Feel Safe in your Home?: Yes Lack of Transportation: No Lack of Food: Never True Current Housing: I Have Housing Concerned About Future Housing: No Difficulty Paying Gas/Electric Bills: No Difficulty Paying for Meds: No Currently Unemployed: YES Education: Associate Degree Difficulty w/ Childcare or Family Care: No Living arrangements: other Additional living arrangements comments: with sp Occupation/Education: retired 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 HEAD: Normocephalic, atraumatic. EYES: PERRLA and EOMI. ENT: Nares clear, no rhinorrhea or epistaxis. Mucous membranes moist. NECK: Supple. CHEST: Clear to auscultation. No respiratory distress. HEART: Regular rate and rhythm. No murmur heard. Normal peripheral pulses. ABDOMEN: Soft, nontender, nondistended, normal active bowel sounds. EXTREMITIES: Normal range of motion. No edema. SKIN: Warm, dry, no rash. NEURO: No focal deficits. Alert and oriented x3. Cranial nerves 2-12 intact. Strength out of 5 BUE and BLE. Sensation intact throughout. Normal [id number]. No pronator drift. <Karen Jones PA-C - Last Filed: 01/08/25 13:50> Course PROCESS CONSULTANT/PA Physician Supervision For this patient encounter, I reviewed the PROCESS CONSULTANT or PA documentation, treatment plan, and medical decision making; and I had [id number] time with this patient. <Wild Garvin MD - Last Filed: 01/08/25 19:21> Vital Signs Vital signs: Vital Signs Temperature 98.6 F 01/08/25 10:57 Pulse Rate 69 01/08/25 10:57 Respiratory Rate 14 01/08/25 10:57 Blood Pressure 159/87 H 01/08/25 10:57 Pulse Oximetry 98 01/08/25 10:57 Oxygen Delivery Room Air 01/08/25 10:57 Temperature 98.0 F 01/08/25 15:56 Pulse Rate 68 01/08/25 15:56 Respiratory Rate 16 01/08/25 15:56 Blood Pressure 145/78 H 01/08/25 15:56 Pulse Oximetry 98 01/08/25 15:56 Oxygen Delivery Room Air 01/08/25 11:12 <Karen Jones PA-C - Last Filed: 01/08/25 13:50> Vital Signs Temperature 98.6 F 01/08/25 10:57 Pulse Rate 69 01/08/25 10:57 Respiratory Rate 14 01/08/25 10:57 Blood Pressure 159/87 H 01/08/25 10:57 Pulse Oximetry 98 01/08/25 10:57 Oxygen Delivery Room Air 01/08/25 10:57 Temperature 98.0 F 01/08/25 15:56 Pulse Rate 68 01/08/25 15:56 Respiratory Rate 16 01/08/25 15:56 Blood Pressure 145/78 H 01/08/25 15:56 Pulse Oximetry 98 01/08/25 15:56 Oxygen Delivery Room Air 01/08/25 11:12 <Wild Garvin MD - Last Filed: 01/08/25 19:21> MDM - Chest Pain MDM Narrative Medical decision making narrative: 64-year-old female presents to the ED for migraine for 2 days, EKG changes as found by her PCP this morning and intermittent chest pain and exertional dyspnea. See HPI for further history. Triage vitals with blood pressure 159/87, otherwise unremarkable. Patient is neurovascularly intact and resting comfortably in exam bed. See exam above. Will obtain lab work, EKG, troponins, CT brain and provide headache cocktail and re-evaluate. EKG shows normal sinus rhythm with a rate of 67 ppm, normal WV interval, normal QRS duration, normal QTC, delayed precordial R to S transition, Q-waves in lead 3, ST depression and T-wave inversion in leads V3 to V5, no ST elevation. Patient is not currently having chest pain. No prior EKGs for comparison be on her EKG obtained PCPs office today. Troponin undetectable. D-dimer within normal limits, his course of risk. CBC and chemistries are largely unremarkable. CT brain shows no acute intracranial findings. Chest x-ray is unremarkable. Patient family updated on workup. Patient received headache cocktail with resolution of headache. She did have 1 episode of chest pain while in the ED but unfortunately did not notify staff and therefore an EKG was not obtained. Heart score is 5. Plan to admit for further evaluation. Discussed with turn supervisor, Dr. Ogden, who agrees to admission and consult. Discussed with hospitalist PROCESS CONSULTANT, Buck, who accepts admission. Advised med/tele. Pt and family amenable to the plan. <Karen Jones PA-C - Last Filed: 01/08/25 13:50> Lab Data Result diagrams: 01/08/25 10:55 01/08/25 10:55 <Karen Jones PA-C - Last Filed: 01/08/25 13:50> Labs: Lab Results 01/08/25 01/08/25 Range/Units 10:55 10:55 WBC 6.8 (4.5-10.0) K/mm3 RBC 4.75 (4.2-5.4) M/mm3 Hgb 15.6 H (12.0-15.0) g/dL Hct 46.4 (37.0-47.0) % MCV 97.7 (80-100) fl MCH 32.8 (26-34) pg MCHC 33.6 (32-36) g/dl RDW 12.3 (11.5-14.5) % Plt Count 344 (150-375) k/mm3 MPV 9.5 (7.4-10.4) fl Immature Gran % (Auto) 0.3 (0-0.5) % Neut % (Auto) 67.6 (45.5-73.1) % Lymph % (Auto) 22.4 (18.3-44.2) % Wythe % (Auto) 7.2 (2.6-8.5) % Eos % (Auto) 1.8 (0-4.4) % Baso % (Auto) 0.7 (0.2-1.2) % Lymph # (Auto) 1.53 (0.9-3.2) K/mm3 Wythe # (Auto) 0.5 (0.1-0.6) K/mm3 Eos # (Auto) 0.1 (0-0.3) K/mm3 Baso # (Auto) 0.1 (0.0-0.1) K/mm3 Abs Immat Gran (auto) 0.02 (0.00-0.031) K/mm3 Absolute Neuts (auto) 4.6 (1.3-6.7) K/mm3 Absolute Nucleated RBC 0.000 (0.0-0.012) K/mm3 Nucleated RBC % 0.0 (0.0-0.2) % PT 12.6 (11.1-14.7) Seconds INR 0.9 APTT 27.4 (22.3-36.8) Seconds D-Dimer 0.27 Cancelled (<0.48) ug/mL Sodium 138 (137-145) mmol/L Potassium 3.7 (3.4-5.0) mmol/L Chloride 99 (98-107) mmol/L Carbon Dioxide 27 (22-30) mmol/L Anion Gap 12 (4-12) mmol/L BUN 7 (7-17) mg/dL Creatinine 0.73 (0.7-1.0) mg/dL Estim Creat Clear Calc 70 ml/min Estimated GFR > 60 (59 - ) Glucose 130 H (65-110) mg/dL Calcium 9.6 (8.4-10.2) mg/dL Total Bilirubin 0.9 (0.2-1.3) mg/dL AST 28 (14-36) U/L ALT 23 (6-35) U/L Alkaline Phosphatase 125 (38-126) U/L Troponin I < 0.012 (0.000-0.034) ng/mL NT-Pro-B Natriuret Pep 806 H (19.9-100) pg/mL Total Protein 8.0 (6.3-8.2) g/dL Albumin 4.4 (3.5-5.1) g/dL Lipase 62 (23-300) U/L <Karen Jones PA-C - Last Filed: 01/08/25 13:50> Lab Results 01/08/25 01/08/25 Range/Units 10:55 10:55 WBC 6.8 (4.5-10.0) K/mm3 RBC 4.75 (4.2-5.4) M/mm3 Hgb 15.6 H (12.0-15.0) g/dL Hct 46.4 (37.0-47.0) % MCV 97.7 (80-100) fl MCH 32.8 (26-34) pg MCHC 33.6 (32-36) g/dl RDW 12.3 (11.5-14.5) % Plt Count 344 (150-375) k/mm3 MPV 9.5 (7.4-10.4) fl Immature Gran % (Auto) 0.3 (0-0.5) % Neut % (Auto) 67.6 (45.5-73.1) % Lymph % (Auto) 22.4 (18.3-44.2) % Wythe % (Auto) 7.2 (2.6-8.5) % Eos % (Auto) 1.8 (0-4.4) % Baso % (Auto) 0.7 (0.2-1.2) % Lymph # (Auto) 1.53 (0.9-3.2) K/mm3 Wythe # (Auto) 0.5 (0.1-0.6) K/mm3 Eos # (Auto) 0.1 (0-0.3) K/mm3 Baso # (Auto) 0.1 (0.0-0.1) K/mm3 Abs Immat Gran (auto) 0.02 (0.00-0.031) K/mm3 Absolute Neuts (auto) 4.6 (1.3-6.7) K/mm3 Absolute Nucleated RBC 0.000 (0.0-0.012) K/mm3 Nucleated RBC % 0.0 (0.0-0.2) % PT 12.6 (11.1-14.7) Seconds INR 0.9 APTT 27.4 (22.3-36.8) Seconds D-Dimer 0.27 Cancelled (<0.48) ug/mL Sodium 138 (137-145) mmol/L Potassium 3.7 (3.4-5.0) mmol/L Chloride 99 (98-107) mmol/L Carbon Dioxide 27 (22-30) mmol/L Anion Gap 12 (4-12) mmol/L BUN 7 (7-17) mg/dL Creatinine 0.73 (0.7-1.0) mg/dL Estim Creat Clear Calc 70 ml/min Estimated GFR > 60 (59 - ) Glucose 130 H (65-110) mg/dL Calcium 9.6 (8.4-10.2) mg/dL Total Bilirubin 0.9 (0.2-1.3) mg/dL AST 28 (14-36) U/L ALT 23 (6-35) U/L Alkaline Phosphatase 125 (38-126) U/L Troponin I < 0.012 (0.000-0.034) ng/mL NT-Pro-B Natriuret Pep 806 H (19.9-100) pg/mL Total Protein 8.0 (6.3-8.2) g/dL Albumin 4.4 (3.5-5.1) g/dL Lipase 62 (23-300) U/L <Wild Garvin MD - Last Filed: 01/08/25 19:21> Discharge Plan Discharge Clinical Impression: Headache Chest pain Qualifiers: Chest pain type: unspecified Qualified Code(s): R07.9 - Chest pain, unspecified <Karen Jones PA-C - Last Filed: 01/08/25 13:50> Patient Disposition: Still a Patient <Karen Jones PA-C - Last Filed: 01/08/25 13:50> Condition: Stable <Karen Jones PA-C - Last Filed: 01/08/25 13:50> Quality HEART score for chest pain patients History: moderately suspicious <Karen Jones PA-C - Last Filed: 01/08/25 13:50> ECG: significant ST depression <Karen Jones PA-C - Last Filed: 01/08/25 13:50> Age: > 45 and < 65 years <Karen Jones PA-C - Last Filed: 01/08/25 13:50> Risk factors: 1 or 2 risk factors <Karen Jones PA-C - Last Filed: 01/08/25 13:50> Troponin: < or = to 1x normal limit <Karen Jones PA-C - Last Filed: 01/08/25 13:50> Heart score: 5 <Karen Jones PA-C - Last Filed: 01/08/25 13:50> 5 <Wild Garvin MD - Last Filed: 01/08/25 19:21>
[2025-01-08 11:18] LABS: Alanine Aminotransferase 23 U/L (6-35); Albumin Level 4.4 g/dL (3.5-5.1); Alkaline Phosphatase 125 U/L (38-126); Anion Gap 12 mmol/L (4-12); Aspartate Amino Transferase 28 U/L (14-36); Bilirubin,Total 0.9 mg/dL (0.2-1.3); Blood Urea Nitrogen 7 mg/dL (7-17); Calcium 9.6 mg/dL (8.4-10.2); Carbon Dioxide 27 mmol/L (22-30); Chloride 99 mmol/L (98-107); Estimated CRCL calculation 70 ml/min; Estimated Glomerular Filt Rate > 60; Glucose 130 mg/dL (65-110); Lipase 62 U/L (23-300); Potassium 3.7 mmol/L (3.4-5.0); Sodium 138 mmol/L (137-145)
--- OUTSIDE RECORDS SUMMARY | 2025-01-08 11:24 | XMS_ITS | Encounter Summary ---
Author Organization [employer] Address [address] [place] [address] Care Team Providers Care Domestic Freight Forwarder Name Role Phone Tessy Francois DO Primary Care Provider [phone] Encounter Details Date Type Department Care Team (Late st Contact Info) Description 08/28/2007 Outpatient Historical [facility] [place] [address] [place] [address] Other Chest Pain (Primary Dx) Social History Tobacco Use Types Packs/Day Years Used Date Smoking Tobacco: Never Assessed Comments Unknown Sex and Gender Information Value Date Recorded Sex Assigned at Not on file Legal Sex Female 5:28 AM OUTBOUND SALES SPECIALIST Gender Identity Not on file Sexual [...] INTERFACE SYSTEM 08/29/2007 6:00 AM CDT us Vijavzaarkumari Ying CHEMISTRY ORDERABLES Edited Performing Organization Address [facility] de Phone Number INTERFACE SYSTEM Refer to [...] classifications for lipids are available on the [facility] Intranet at: [email or web address] Select: Lab Policies and Procedures,Current Select: Lipid Panel Interpretation 08/29/2007 6:00 AM CDT us VijaDNA Responsei Ying CHEMISTRY ORDERABLES Edited Performing Organization Address [facility] de Phone Number INTERFACE SYSTEM Refer to clinic/hospital department * PHOSPHORUS (08/29/2007 6:00 AM CDT) PHOSPHORUS 4.0 2.5 - 4.5 mg/dL INTERFACE SYSTEM 08/29/2007 6:00 AM CDT us VijayakLogoworksi Ying CHEMISTRY ORDERABLES Edited Performing Organization Address City/[facility] Co de Phone Number INTERFACE SYSTEM Refer to clinic/hospital department * MAGNESIUM LEVEL (08/29/2007 6:00 AM CDT) MAGNESIUM 2.2 1.5 - 2.5 mg/dL INTERFACE SYSTEM 08/29/2007 6:00 AM CDT us VijayakLogoworksi Ying CHEMISTRY ORDERABLES Edited Performing Organization Address City/State/[facility] de Phone Number INTERFACE SYSTEM Refer to clinic/hospital department * TROPONIN (W/REFLEX CKMB/CK) (08/28/2007 11:35 PM CDT) TROPONIN T 0.01 <=0.03 ng/mL INTERFACE SYSTEM TROPONIN T INTERP Negative INTERFACE SYSTEM 08/28/2007 11:3 5 PM CDT Viangel Ying CHEMISTRY ORDERABLES Edited Performing Organization Address [facility] de Phone Number INTERFACE SYSTEM Refer to [...] MD URINE ORDERABLES Edited Performing Organization Address [facility] Phone Number INTERFACE SYSTEM Refer to clinic/hospital department * TROPONIN (W/REFLEX CKMB/CK) (08/28/2007 5:13 PM CDT) TROPONIN T <0.01 <=0.03 ng/mL INTERFACE SYSTEM TROPONIN T INTERP Negative INTERFACE SYSTEM 08/28/2007 5:13 PM CDT Haley Ying CHEMISTRY ORDERABLES Edited Performing Organization Address [facility] de Phone Number INTERFACE SYSTEM Refer to clinic/hospital department * TROPONIN (W/REFLEX CKMB/CK) (08/28/2007 2:52 PM CDT) TROPONIN T <0.01 <=0.03 ng/mL INTERFACE SYSTEM TROPONIN T INTERP Negative INTERFACE SYSTEM 08/28/2007 2:52 PM CDT Ajsánchez Ying CHEMISTRY ORDERABLES Edited Performing Organization Address City/[facility] Co de Phone Number INTERFACE [...] MD HEMATOLOGY ORDERABLES Edited Performing Organization Address [facility] de Phone Number INTERFACE SYSTEM Refer to clinic/hospital department * (ABNORMAL) CBC WITH DIFFERENTIAL (08/27/2007 5:15 PM CDT) Pathologist [facility] WBC 9.1 4.0 - 9.8 K/uL INTERFACE [...] and non- Americans is available on the [facility] Intranet at: [email or web address] Select: Lab Policies and Procedures Select: [...] Primary documented in this encounter Care Teams Domestic Freight Forwarder Relationship Specialty Start Date End Date Tessy Francois DO [address] [place] [address] PCP - General 11/17/15 documented as of this encounter
--- OUTSIDE RECORDS SUMMARY | 2025-01-08 11:24 | XMS_ITS | Encounter Summary ---
Author Organization [facility] Address [address] [place] [address] Care Team Providers Care Emergency Department Director Name Role Phone PriscilaTessy Primary Care Provider [phone] Encounter Details Date Type Department Care Team (Late Contact Info) Description 10/23/2008 Outpatient Historical [facility] Saraiba, MD Mago Social History Tobacco Use Types Packs/Day Years Used Date Smoking Tobacco: Never Assessed Comments Unknown Sex and Gender Information Value Date Recorded Sex Assigned at Not on file Legal Sex Female 5:28 AM CLINICAL SERVICES CONSULTANT Gender Identity Not on file Sexual Orientation Not on file documented as of this encounter Plan of Treatment Not on file documented as of this encounter Procedures Procedure Name Priority Date/Time Associated Diagnosis Comments GLUCOSE TOLERANCE, 2 HR Routine 10/23/2008 10:30 AM CLINICAL SERVICES CONSULTANT GLUCOSE FARHAT NON-GEST FOR DIABETES 2 HR Routine 10/23/2008 10:30 AM CLINICAL SERVICES CONSULTANT GLUCOSE TOLERANCE, FASTING Routine 10/23/2008 8:18 AM CLINICAL SERVICES CONSULTANT BASIC METABOLIC PANEL Routine 10/23/2008 8:18 AM CLINICAL SERVICES CONSULTANT documented in this encounter Results * GLUCOSE FARHAT NON-GEST FOR DIABETES 2 HR (10/23/2008 10:30 AM CLINICAL SERVICES CONSULTANT) COMMENT See Additional Orderables [facility] Blood specimen (specimen) 10/23/2008 10:30 AM CLINICAL SERVICES CONSULTANT 10/23/2008 10:32 AM CLINICAL SERVICES CONSULTANT Mago Sarabia MD CHEMISTRY ORDERABLES Final R esult Performing Organization Address [facility] de Phone Number INTERFACE SYSTEM Refer to clinic/hospital department [facility] CLIA# [id number] [address] [place] [address] * GLUCOSE TOLERANCE, 2 HR (10/23/2008 10:30 AM CLINICAL SERVICES CONSULTANT) GLUCOSE, 2HR 135 <=139 mg/dL [facility] Blood specimen (specimen) 10/23/2008 10:30 AM CLINICAL SERVICES CONSULTANT 10/23/2008 10:32 AM CLINICAL SERVICES CONSULTANT Mago Sarabia MD CHEMISTRY ORDERABLES [facility] Performing Organization Address [facility] Phone Number INTERFACE SYSTEM Refer to clinic/hospital department [facility] CLIA# [id number] [address] [address] * BASIC METABOLIC PANEL (10/23/2008 8:18 AM CLINICAL SERVICES CONSULTANT) CHLORIDE 103 96 - 108 mmol/L [facility] GLUCOSE 86 65 - 99 mg/dL [facility] SODIUM 141 135 - 145 mmol/L [facility] CALCIUM 8.6 8.6 - 10.2 mg/dL [facility] CO2 28 22 - 30 mmol/L [facility] CREATININE 0.80 0.51 - 0.95 mg/dL [facility] POTASSIUM 3.9 3.5 - 4.9 mmol/L [facility] BUN 11 6 - 20 mg/dL [facility] GFR, >60 >=60 mL/min/1.7 sq meter [facility] GFR >60 >=60 mL/min/1.7 sq meter [facility] Comment: ansiModification of Diet in Renal Disease (MDRD) study formula. Estimated GFR rate interpretative information for both Americans and non- Americans is available on the [facility] Intranet at: [email or web address] Select: Lab Policies and Procedures Select: Reference Ranges - GFR Blood specimen (specimen) 10/23/2008 8:18 AM CLINICAL SERVICES CONSULTANT 10/23/2008 9:00 AM CLINICAL SERVICES CONSULTANT Mago Sarabia MD CHEMISTRY ORDERABLES Edited Performing Organization Address [facility] de Phone Number INTERFACE SYSTEM Refer to clinic/hospital department [facility] CLIA# [id number] [address] [address] * GLUCOSE TOLERANCE, FASTING (10/23/2008 8:18 AM CLINICAL SERVICES CONSULTANT) GTT INTERP, NON-GESTATION AL Based on 75 g dose: Type 1 or 2 Diabetes Mellitus Criteria: Fasting (Baseline): > = 126 mg/dL or 2 hour specimen: > = 200 mg/dL Impaired Glucose Metabolism Criteria: Fasting (Baseline): 100 - 125 mg/dL 2 hour specimen: 140 - 199 mg/dL [facility] GLUCOSE FASTING 86 <=99 mg/dL [facility] Blood specimen (specimen) 10/23/2008 8:18 AM CLINICAL SERVICES CONSULTANT 10/23/2008 9:00 AM CLINICAL SERVICES CONSULTANT us Mago Sarabia MD CHEMISTRY ORDERABLES Final R esult Performing Organization Address [facility] de Phone Number INTERFACE SYSTEM Refer to clinic/hospital department [facility] CLIA# [id number] [address] [place] [address] documented in this encounter Visit Diagnoses Not on filedocumented in this encounter Care Teams Emergency Department Director Relationship Specialty Start Date End Date Tessy Francois DO [address] [place] [address] PCP - General 11/17/15 documented as of this encounter
--- OUTSIDE RECORDS SUMMARY | 2025-01-08 11:24 | XMS_ITS | Encounter Summary ---
Author Organization [facility] Address [address] [place] [address] Care Team Providers Care Woods Overseer Name Role Phone Priscila Tessydasha Mchugh Primary Care Provider [phone] Encounter Details Date Type Department Care Team (Latest Contact Info) Description 04/18/2009 Outpatient Historical [facility] Sujatha Ledesma MD [address] [place] [address] Regional Enteritis of Unspecified Site (CMS/HCC) Social History Tobacco Use Types Packs/Day Years Used Date Smoking Tobacco: Never Assessed Comments Unknown Sex and Gender Information Value Date Recorded Sex Assigned at Not on file Legal Sex Female 5:28 AM DIRECTOR CARDIOLOGY Gender Identity Not on file Sexual Orientation [...] CDT) GLUCOSE 151(H) 65 - 99 mg/dL [facility] AST 17 12 - 32 U/L [facility] BUN 11 6 - 20 mg/dL [facility] CALCIUM 9.2 8.6 - 10.2 mg/dL [facility] CHLORIDE 102 96 - 108 mmol/L [facility] ALBUMIN 4.1 3.4 - 4.8 g/dL [facility] CREATININE 0.67 0.51 - 0.95 mg/dL [facility] SODIUM 138 135 - 145 mmol/L [facility] ALT 14 0 - 31 U/L [facility] ALKALINE PHOSPHATASE 61 35 - 104 U/L [facility] BILIRUBIN TOTAL 0.4 0.2 - 1.0 mg/dL [facility] CO2 25 22 - 30 mmol/L [facility] TOTAL PROTEIN 7.0 6.3 - 8.6 g/dL [facility] POTASSIUM 3.6 3.5 - 4.9 mmol/L [facility] [...] is available on the [facility] Intranet at: [email or web address] Select: Lab Policies and Procedures Select: Reference Ranges - GFR Blood specimen (specimen) 04/18/2009 1:13 PM CDT 04/18/2009 2:00 PM CDT Sujatha Prado MD CHEMISTRY ORDERABLES Edited INTERFACE SYSTEM Refer to clinic/hospital department [facility] CLIA# [id number] [address] [place] [address] * (ABNORMAL) CBC WITH DIFFERENTIAL (04/18/2009 1:13 PM CDT) MCV 101.5(H) 82.0 - 99.0 fL [facility] PLATELETS 319 140 - 350 K/uL [facility] HEMOGLOBIN 13.3 11.8 - 14.8 g/dL [facility] RDW 14.1 11.5 - 14.5 % [facility] WBC 7.2 4.0 - 9.8 K/uL [facility] MCH 33.9(H) 27.2 - 32.6 pg [facility] MPV 10.3 9.3 - 12.4 fL [facility] HEMATOCRIT 39.8 35.5 - 44.0 % [facility] RDW-STDEV 52.2(H) 37.1 - 48.7 fL [facility] RBC 3.92 3.90 - 4.90 M/uL [facility] MCHC 33.4 31.5 - 35.5 % [facility] EOSINOPHILS 1 0 - 7 % [facility] EOSINOPHIL ABSOLUTE 0.10 0.00 - 0.70 K/uL [facility] LYMPHOCYTES 21 16 - 45 % [facility] LYMPHOCYTE ABSOLUTE 1.50 0.70 - 4.50 K/uL [facility] BASOPHILS 0 0 - 2 % [facility] BASOPHILS ABSOLUTE 0.03 0.00 - 0.20 K/uL [facility] MONOCYTES 5 3 - 13 % [facility] MONOCYTE ABSOLUTE 0.37 0.10 - 1.30 K/uL [facility] NEUTROPHILS 72(H) 45 - 70 % [facility] NEUTROPHIL ABSOLUTE 5.15 1.90 - 7.00 K/uL [facility] Blood specimen (specimen) 04/18/2009 1:13 PM CDT 04/18/2009 1:53 PM CDT us Sujatha Prado MD HEMATOLOGY ORDERABLES Edited INTERFACE SYSTEM Refer to clinic/hospital department [facility] CLIA# [id number] [address] [place] [address] documented in this encounter Visit Diagnoses Diagnosis Regional enteritis of unspecified site (CMS/HCC) Regional enteritis of unspecified site documented in this encounter Care Teams Woods Overseer Relationship Specialty Start Date End Date Tessy Francois DO [address] [place] [address] PCP - General 11/17/15 documented as of this encounter
--- OUTSIDE RECORDS SUMMARY | 2025-01-08 11:24 | XMS_ITS | Encounter Summary ---
Author Organization [employer] Address [address] [place] [address] Care Team Providers Care Paramedic Supervisor Name Role Phone Priscila Tessydasha Mchugh Primary Care Provider [phone] Encounter Details Date Type Department Care Team (Latest Contact Info) Description 03/10/2009 Outpatient Historical [facility] Sujatha Ledesma MD [address] [place] [address] Regional Enteritis of Unspecified Site (CMS/HCC) Social History Tobacco Use Types Packs/Day Years Used Date Smoking Tobacco: Never Assessed Comments Unknown Sex and Gender Information Value Date Recorded Sex Assigned at Not on file Legal Sex Female 5:28 AM SIDE GUIDER Gender Identity Not on file Sexual Orientation [...] CDT) CALCIUM 9.5 8.6 - 10.2 mg/dL [facility] CHLORIDE 101 96 - 108 mmol/L [facility] ALBUMIN 4.5 3.4 - 4.8 g/dL [facility] CREATININE 0.77 0.51 - 0.95 mg/dL [facility] SODIUM 138 135 - 145 mmol/L [facility] ALT 46(H) 0 - 31 U/L [facility] ALKALINE PHOSPHATASE 54 35 - 104 U/L [facility] BILIRUBIN TOTAL 0.3 0.2 - 1.0 mg/dL [facility] CO2 28 22 - 30 mmol/L [facility] TOTAL PROTEIN 7.2 6.3 - 8.6 g/dL [facility] POTASSIUM 3.9 3.5 - 4.9 mmol/L [facility] GLUCOSE 96 65 - 99 mg/dL [facility] AST 33(H) 12 - 32 U/L [facility] BUN 7 6 - 20 mg/dL [facility] GFR, >60 >=60 mL/min/1.7 sq meter [facility] GFR >60 >=60 mL/min/1.7 sq meter [facility] Comment: Modification of Diet in Renal Disease (MDRD) study formula. Estimated GFR rate interpretative information for both Americans and non- Americans is available on the [facility] [place] Intranet at: [email or web address] Select: Lab Policies and Procedures Select: Reference Ranges - GFR Blood specimen (specimen) 03/10/2009 2:33 PM CDT 03/10/2009 3:22 PM CDT uSjatha Prado MD CHEMISTRY ORDERABLES Edited INTERFACE SYSTEM Refer to clinic/hospital department [facility] CLIA# [id number] [address] [place] [address] * (ABNORMAL) CBC WITH DIFFERENTIAL (03/10/2009 2:33 PM CDT) RBC 4.13 3.90 - 4.90 M/uL [facility] MCHC 32.7 31.5 - 35.5 % [facility] MCV 101.5(H) 82.0 - 99.0 fL [facility] PLATELETS 315 140 - 350 K/uL [facility] HEMOGLOBIN 13.7 11.8 - 14.8 g/dL [facility] RDW 14.3 11.5 - 14.5 % [facility] WBC 7.6 4.0 - 9.8 K/uL [facility] MCH 33.2(H) 27.2 - 32.6 pg [facility] MPV 10.5 9.3 - 12.4 fL [facility] HEMATOCRIT 41.9 35.5 - 44.0 % [facility] RDW-STDEV 52.8(H) 37.1 - 48.7 fL [facility] NEUTROPHILS 67 45 - 70 % [facility] NEUTROPHIL ABSOLUTE 5.13 1.90 - 7.00 K/uL [facility] EOSINOPHILS 2 0 - 7 % [facility] EOSINOPHIL ABSOLUTE 0.17 0.00 - 0.70 K/uL [facility] LYMPHOCYTES 21 16 - 45 % [facility] LYMPHOCYTE ABSOLUTE 1.60 0.70 - 4.50 K/uL [facility] BASOPHILS 1 0 - 2 % [facility] BASOPHILS ABSOLUTE 0.05 0.00 - 0.20 K/uL [facility] MONOCYTES 9 3 - 13 % [facility] MONOCYTE ABSOLUTE 0.66 0.10 - 1.30 K/uL [facility] Blood specimen (specimen) 03/10/2009 2:33 PM CDT 03/10/2009 3:24 PM CDT us Sujatha Prado MD HEMATOLOGY ORDERABLES Edited INTERFACE SYSTEM Refer to clinic/hospital department [facility] CLIA# [id number] [address] [place] [address] documented in this encounter Visit Diagnoses Diagnosis Regional enteritis of unspecified site (CMS/HCC) Regional enteritis of unspecified site documented in this encounter Care Teams Paramedic Supervisor Relationship Specialty Start Date End Date Tessy Francois DO [address] [place] [address] PCP - General 11/17/15 documented as of this encounter
--- OUTSIDE RECORDS SUMMARY | 2025-01-08 11:24 | XMS_ITS | Clinical Summary ---
Author Organization [facility] Address [address] [place] [address] Care Team Providers Care Manager Infrastructure Name Role Phone Dillan Woody MD Primary Care Provider [phone] Source Comments [facility],non-owned Affiliates and Associated Physician Practices is amultiple site organization consisting of ambulatory clinics and hospital sitesin [place], [place], [place] and [place]. This disclosure is being madepursuant to the Care Everywhere program and may not contain all information available regarding this patient. Last updated 18.[facility] Allergies Active Allergy Reactions Criticality Noted Date [...] daily. Active Cyanocobalamin (NASCOBAL) 500 MCG/0.1ML SOLN [place] 1 Squirt into the nose every 7 [...] 36.3 C (97.3 F) 01/07/2011 8:00 AM PIPE CUTTER Respiratory Rate 18 01/07/2011 8:00 AM PIPE CUTTER Oxygen Saturation 100% 01/05/2011 8:00 PM PIPE CUTTER Inhaled Oxygen Concentration - - Weight 73.9 [...] ICD9 [facility] ACCOUNT BILL Comment:V72.31 ; Routine steam press tender ecological examination Performed by [facility] ACCOUNT BILL [...] Thin Prep Vial Resulting Agency Comment [facility] [address] [phone] Rock Bullock MD LAB - PATHOLOGY/CYTO LOGY ORDERABLES [facility] ACCOUNT BILL * MAMMOGRAPHY ORDER (07/17/2011) Anatomical Region Laterality Modality Other Rock Bullokc MD MAMMO ORDERABLES from Last 3 Months [...] 10:33 PM 01/04/2011 8:00 PM Care Teams Manager Infrastructure Relationship Specialty Start Date End Date Dillan Woody MD PCP - General Internal Medicine 02/26/12
--- OUTSIDE RECORDS SUMMARY | 2025-01-08 11:24 | XMS_ITS | Encounter Summary ---
Author Organization [employer] Address [address] [place] [address] Care Team Providers Care Electric Welder Helper Name Role Phone Tessy Francois DO Primary Care Provider [phone] Encounter Details Date Type Department Care Team (Late st Contact Info) Description 08/29/2007 Outpatient Historical [facility] (Adt Cardiology-[facility]) [address] [place] [address] Tristan Hyman MD NO ADDRESS ON FILE Social History Tobacco Use Types Packs/Day Years Used Date Smoking Tobacco: Never Assessed Comments Unknown Sex and Gender Information Value Date Recorded Sex Assigned at Not on file Legal Sex Female 5:28 AM ANTIQUE CLOCK REPAIRER Gender Identity Not on file Sexual Orientation Not on file documented as of this encounter Plan of Treatment Not on file documented as of this encounter Visit Diagnoses Not on filedocumented in this encounter Care Teams Electric Welder Helper Relationship Specialty Start Date End Date Tessy Francois DO [address] [place] [address] PCP - General 11/17/15 documented as of this encounter
--- OUTSIDE RECORDS SUMMARY | 2025-01-08 11:24 | XMS_ITS | Encounter Summary ---
Author Organization [facility] Address [address] [place] [address] Care Team Providers Care Induction Heat Treater Name Role Phone Priscila Tessy Britte Primary Care Provider [phone] Encounter Details Date Type Department Care Team (Late st Contact Info) Description 10/26/2008 Outpatient Historical [facility] Mago Sarabia MD Social History Tobacco Use Types Packs/Day Years Used Date Smoking Tobacco: Never Assessed Comments Unknown Sex and Gender Information Value Date Recorded Sex Assigned at Not on file Legal Sex Female 5:28 AM SECOND WATCH SERGEANT Gender Identity Not on file Sexual Orientation Not on file documented as of this encounter Plan of Treatment Not on file documented as of this encounter Procedures Procedure Name Priority Date/Time Associated Diagnosis Comments STOOL CULTURE (SILVANO,SHIG,CAMPY,ECO1 57) Routine 10/26/2008 7:52 AM SECOND WATCH SERGEANT C. DIFFICILE DETECTION Routine 10/26/2008 7:52 AM SECOND WATCH SERGEANT FECAL LEUKOCYTES STAIN Routine 10/26/2008 7:52 AM SECOND WATCH SERGEANT OVA AND PARASITE SCREEN Routine 10/26/2008 7:52 AM SECOND WATCH SERGEANT documented in this encounter Results * CLOSTRIDIUM DIFFICILE TOXIN (10/26/2008 7:52 AM SECOND WATCH SERGEANT) FINAL REPORT NO Clostridium difficile Toxin A or B detected by EIA. A negative result does not rule out C. difficile associated diarrhea or colitis. [facility] Stool specimen (specimen) 10/26/2008 7:52 AM SECOND WATCH SERGEANT 10/26/2008 8:13 AM SECOND WATCH SERGEANT us Sujatha Prado MD MICROBIOLOGY - GENERAL ORDERABL ES Final Result Performing Organization Address [facility] de Phone Number INTERFACE SYSTEM Refer to clinic/hospital department [facility] CLIA# [id number] [address] [place] [address] * OVA AND PARASITE SCREEN (10/26/2008 7:52 AM SECOND WATCH SERGEANT) PRELIMINARY REPORT Pending [facility] FINAL REPORT Concentration : No ova or parasites seen. Trichrome: No ova or parasites seen. [facility] Stool specimen (specimen) 10/26/2008 7:52 AM SECOND WATCH SERGEANT 10/26/2008 8:15 AM SECOND WATCH SERGEANT Narrative INTERFACE SYSTEM - 11/02/2008 7:09 AM SECOND WATCH SERGEANT Performed by [employer] [address] Performed by [employer] [address] us Sujatha Prado MD MICROBIOLOGY - GENERAL ORDERABL ES Final Result Performing Organization Address [facility] Phone Number INTERFACE SYSTEM Refer to clinic/hospital department [facility] CLIA# [id number] [address] [place] [address] * FECAL LEUKOCYTES STAIN (10/26/2008 7:52 AM SECOND WATCH SERGEANT) FINAL REPORT Few WBC's seen [facility] Stool specimen (specimen) 10/26/2008 7:52 AM SECOND WATCH SERGEANT 10/26/2008 8:13 AM SECOND WATCH SERGEANT us Sujatha Prado MD MICROBIOLOGY - GENERAL ORDERABL ES Final Result Performing Organization Address City/[facility] de Phone Number INTERFACE SYSTEM Refer to clinic/hospital department [facility] CLIA# [id number] [address] [place] [address] * STOOL CULTURE (SILVANO,SHIG,CAMPY,PRC754) (10/26/2008 7:52 AM SECOND WATCH SERGEANT) PRELIMINARY REPORT No Salmonella isolated. No Shigella isolated. No Escherichia coli serogroup O157:H7 isolated. [facility] FINAL REPORT No Salmonella isolated. No Shigella isolated. No Escherichia coli serogroup O157:H7 isolated. No Camplylobacter isolated. [facility] Stool specimen (specimen) 10/26/2008 7:52 AM SECOND WATCH SERGEANT 10/26/2008 8:17 AM SECOND WATCH SERGEANT us Sujatha Prado MD MICROBIOLOGY - GENERAL ORDERABL ES Final Result INTERFACE SYSTEM Refer to clinic/hospital department [facility] CLIA# [id number] [address] [place] [address] documented in this encounter Visit Diagnoses Not on filedocumented in this encounter Care Teams Induction Heat Treater Relationship Specialty Start Date End Date Tessy Francois DO [address] [place] [address] PCP - General 11/17/15 documented as of this encounter
--- OUTSIDE RECORDS SUMMARY | 2025-01-08 11:24 | XMS_ITS | Referral Summary ---
Author Organization [facility] Address [address] [place] [address] Care Team Providers Care Fermentation Scientist Name Role Phone Dillan Woody MD Primary Care Provider [phone] Source Comments [facility],non-owned Affiliates and Associated Physician Practices is amultiple site organization consisting of ambulatory clinics and hospital sitesin [place], [place], [place] and [place]. This disclosure is being madepursuant to the Care Everywhere program and may not contain all information available regarding this patient. Last updated 18.[facility] Allergies Active Allergy Reactions Criticality Noted Date [...] daily. Active Cyanocobalamin (NASCOBAL) 500 MCG/0.1ML SOLN [place] 1 Squirt into the nose every 7 [...] 36.3 C (97.3 F) 01/07/2011 8:00 AM HOSPICE/HOME HEALTH AIDE Respiratory Rate 18 01/07/2011 8:00 AM HOSPICE/HOME HEALTH AIDE Oxygen Saturation 100% 01/05/2011 8:00 PM HOSPICE/HOME HEALTH AIDE Inhaled Oxygen Concentration - - Weight 73.9 [...] ICD9 [facility] ACCOUNT BILL Comment:V72.31 ; Routine apple sorter ecological examination Performed by [facility] ACCOUNT BILL [...] CYTYC Thin Prep Vial Resulting Agency Comment [facility] [phone] Rock Bullock MD LAB - PATHOLOGY/CYTO LOGY [...] 10:33 PM 01/04/2011 8:00 PM Care Teams Fermentation Scientist Relationship Specialty Start Date End Date Dillan Woody MD PCP - General Internal Medicine 02/26/12
--- OUTSIDE RECORDS SUMMARY | 2025-01-08 11:24 | XMS_ITS | Encounter Summary ---
Author Organization [employer] [facility] Address [address] [place] [address] Care Team Providers Care Patent Agent Name Role Phone Priscila Tessydasha Mchugh Primary Care Provider [phone] Encounter Details Date Type Department Care Team (Latest Contact Info) Description 07/08/2009 Outpatient Historical HIS [facility] Sujatha Ledesma MD [address] [place] [address] Regional Enteritis of Unspecified Site (CMS/HCC) Social History Tobacco Use Types Packs/Day Years Used Date Smoking Tobacco: Never Assessed Comments Unknown Sex and Gender Information Value Date Recorded Sex Assigned at Not on file Legal Sex Female 5:28 AM TRIM SAWYER Gender Identity Not on file Sexual Orientation [...] (07/13/2009 12:26 PM CDT) SPECIMEN TYPE Blood [facility] TEST NAME THIOPURINE METABOLITES [facility] MISCELLANEOUS LAB TEST Name of Test: [place] THIOPURINE METABOLITES Test Result: Metabolite: 6-TGN Result (Units: pmole/8x10^8 RBC): 426 Reference Range: 230 ? 400 Result Assessment: Higher Risk of Leucopenia. Higher Likelihood of Response. Metabolite: 6-MMPN Result (Units: pmole/8x10^8 RBC): 2516 Reference Range: <5700 Result Assessment: Lower Risk of Hepatotoxicity. Test Performed By: [employer], [place], [place] [facility] Specimen of unknown material (specimen) 07/13/2009 12:26 PM CDT 07/13/2009 12:36 PM CDT us Sujatha Prado MD CHEMISTRY ORDERABLES Edited Performing Organization Address [facility]/ZIP Co de Phone Number [facility] CLIA# [id number] [address] [address] * VITAMIN B12 (07/13/2009 12:26 PM CDT) Pathologist [facility] VITAMIN B12 303 211 - 946 pg/mL [facility] Comment: It has been reported that between 5 to 10% of patients with values between 200 and 400 pg/mL may experience neuropsychiatric and hematologic abnormalities due to occult B12 deficiency. Less than 1% of patients with values above 400 pg/mL will have symptoms. Blood specimen (specimen) 07/13/2009 12:26 PM CDT 07/13/2009 12:36 PM CDT us Sujatha Prado MD CHEMISTRY ORDERABLES Edited [facility] CLIA# [id number] [address] [place] [address] * TSH (07/13/2009 12:26 PM CDT) [facility] TSH 0.98 0.27 - 4.20 uU/mL [facility] Blood specimen (specimen) 07/13/2009 12:26 PM CDT 07/13/2009 12:36 PM CDT Sujatha Prado MD CHEMISTRY ORDERABLES Final Resu lt [facility] CLIA# [id number] [address] [address] * (ABNORMAL) CBC WITH DIFFERENTIAL (07/13/2009 12:26 PM CDT) [facility] RDW 16.4(H) 11.5 - 14.5 % [facility] WBC 8.8 4.0 - 9.8 K/uL [facility] MCH 36.7(H) 27.2 - 32.6 pg [facility] MPV 10.1 9.3 - 12.4 fL [facility] HEMATOCRIT 39.9 35.5 - 44.0 % [facility] RDW-STDEV 63.0(H) 37.1 - 48.7 fL [facility] RBC 3.73(L) 3.90 - 4.90 M/uL [facility] MCHC 34.3 31.5 - 35.5 % [facility] MCV 107.0(H) 82.0 - 99.0 fL [facility] PLATELETS 380(H) 140 - 350 K/uL [facility] HEMOGLOBIN 13.7 11.8 - 14.8 g/dL [facility] LYMPHOCYTES 7(L) 16 - 45 % [facility] LYMPHOCYTE ABSOLUTE 0.60(L) 0.70 - 4.50 K/uL [facility] BASOPHILS 0 0 - 2 % [facility] BASOPHILS ABSOLUTE 0.02 0.00 - 0.20 K/uL [facility] MONOCYTES 2(L) 3 - 13 % [facility] MONOCYTE ABSOLUTE 0.18 0.10 - 1.30 K/uL [facility] NEUTROPHILS 91(H) 45 - 70 % [facility] NEUTROPHIL ABSOLUTE 7.94(H) 1.90 - 7.00 K/uL [facility] EOSINOPHILS 0 0 - 7 % [facility] EOSINOPHIL ABSOLUTE 0.01 0.00 - 0.70 K/uL [facility] Blood specimen (specimen) 07/13/2009 12:26 PM CDT 07/13/2009 12:36 PM CDT Sujatha Prado MD HEMATOLOGY ORDERABLES Edited [facility] CLIA# [id number] [address] [place] [address] documented in this encounter Visit Diagnoses Diagnosis Regional enteritis of unspecified site (CMS/HCC) Regional enteritis of unspecified site documented in this encounter Care Teams Patent Agent Relationship Specialty Start Date End Date Tessy Francois DO [address] [place] [address] PCP - General 11/17/15 documented as of this encounter
--- OUTSIDE RECORDS SUMMARY | 2025-01-08 11:24 | XMS_ITS | Encounter Summary ---
Author Organization [employer] Address [address] [place] [address] Care Team Providers Care Sewer Repairer Name Role Phone Tessy Francois DO Primary Care Provider [phone] [phone] Encounter Details Date Type Department Care Team (Late st Contact Info) Description 10/07/2008 Outpatient Historical [facility] Madelyn Rae MD [address] [facility] [address] [place] [address] Regional Enteritis of Unspecified Site (CMS/HCC) Social History Tobacco Use Types Packs/Day Years Used Date Smoking Tobacco: Never Assessed Comments Unknown Sex and Gender Information Value Date Recorded Sex Assigned at Not on file Legal Sex Female 5:28 AM VENUE MANAGER Gender Identity Not on file Sexual Orientation Not on file documented as of this encounter Plan of Treatment Not on file documented as of this encounter Procedures Procedure Name Priority Date/Time Associated Diagnosis Comments PATHOLOGY Routine 10/07/2008 3:22 PM VENUE MANAGER STOOL CULTURE (SILVANO,SHIG,CAMPY,ECO 157) Routine 10/07/2008 3:17 PM VENUE MANAGER C. DIFFICILE DETECTION Routine 10/07/2008 3:17 PM VENUE MANAGER OVA AND PARASITE SCREEN Routine 10/07/2008 3:17 PM VENUE MANAGER POC , URINE Routine 10/07/2008 1:40 PM VENUE MANAGER documented in this encounter Results * PATHOLOGY (10/07/2008 3:22 PM VENUE MANAGER) FINAL REPORT [facility] [address] [place], [place] [address] Patient: ZEINA COLE : 1960 Procedure Date: 10/07/2008 Accession Date: 10/07/2008 Case No: [id number] Ordering Dr: MADELYN RAE Case types AW, BW, FW, NW and SH are performed by [facility], [place], [place] SURGICAL PATHOLOGY & NON-GYNECOLOGIC CYTOPATHOLOGY REPORT [...] 04:36 pm Microscopic: The slides are labeled [id number], Zeina Cole. Sections of the left colon [...] 09:19 am INTERFACE SYSTEM 10/07/2008 3:22 PM VENUE MANAGER us Madelyn Rae MD PATHOLOGY/CYTOLOGY ORDERABLE S Final Result INTERFACE SYSTEM Refer to clinic/hospital department * OVA AND PARASITE SCREEN (10/07/2008 3:17 PM VENUE MANAGER) PRELIMINARY REPORT Pending [facility] FINAL REPORT Concentration : No ova or parasites seen. Trichrome: No ova or parasites seen. [facility] 10/07/2008 3:17 PM VENUE MANAGER 10/07/2008 4:43 PM VENUE MANAGER Narrative INTERFACE SYSTEM - 10/14/2008 10:48 AM VENUE MANAGER fax to dr rae [facility] by [facility], [address] [place] [address] Performed by [facility] [address] Madelyn Rae MD MICROBIOLOGY - GENERAL ORDER DIVINE Final Result Performing Organization Address [facility] Phone Number INTERFACE SYSTEM Refer to clinic/hospital department [facility] CLIA# [id number] [address] [place] [address] * STOOL CULTURE (SILVANO,SHIG,CAMPY,[id number]) (10/07/2008 3:17 PM VENUE MANAGER) PRELIMINARY REPORT No Salmonella isolated. No Shigella isolated. No Escherichia coli serogroup O157:H7 isolated. [facility] FINAL REPORT No Salmonella isolated. No Shigella isolated. No Escherichia coli serogroup O157:H7 isolated. No Camplylobacter isolated. [facility] 10/07/2008 3:17 PM VENUE MANAGER 10/07/2008 4:43 PM VENUE MANAGER Narrative INTERFACE SYSTEM - 10/10/2008 7:51 AM VENUE MANAGER fax to dr rae Madelyn Rae MD MICROBIOLOGY - GENERAL ORDER DIVINE Final Result Performing Organization Address [facility] Co de Phone Number INTERFACE SYSTEM Refer to clinic/hospital department [facility] CLIA# [id number] [address] [place] [address] * CLOSTRIDIUM DIFFICILE TOXIN (10/07/2008 3:17 PM VENUE MANAGER) FINAL REPORT NO Clostridium difficile Toxin A or B detected by EIA. A negative result does not rule out C. difficile associated diarrhea or colitis. [facility] Stool specimen (specimen) 10/07/2008 3:17 PM VENUE MANAGER 10/07/2008 4:43 PM VENUE MANAGER Narrative INTERFACE SYSTEM - 10/08/2008 3:11 PM VENUE MANAGER fax to dr rae Madelyn Rae MD MICROBIOLOGY - GENERAL ORDER DIVINE Final Result Performing Organization Address [facility] de Phone Number INTERFACE SYSTEM Refer to clinic/hospital department [facility] CLIA# [id number] [address] [place] [address] * POC , URINE (10/07/2008 1:40 PM VENUE MANAGER) , URINE POC Negative Negative [facility] Urine specimen (specimen) 10/07/2008 1:40 PM VENUE MANAGER 10/07/2008 1:40 PM VENUE MANAGER Madelyn Rae MD POINT OF CARE TESTING Final Result Performing Organization Address [facility] de Phone Number INTERFACE SYSTEM Refer to clinic/hospital department [facility] CLIA# [id number] [address] [place] [address] documented in this encounter Visit Diagnoses Diagnosis Regional enteritis of unspecified site (CMS/HCC) Regional enteritis of unspecified site documented in this encounter Care Teams Sewer Repairer Relationship Specialty Start Date End Date Tessy Francois DO [address] [place] [address] PCP - General 11/17/15 documented as of this encounter
--- OUTSIDE RECORDS SUMMARY | 2025-01-08 11:24 | XMS_ITS | Encounter Summary ---
Author Organization [facility] Address [address] [place] [address] Care Team Providers Care Privacy Director Name Role Phone Priscila Tessydasha Mchugh Primary Care Provider [phone] Encounter Details Date Type Department Care Team (Latest Contact Info) Description 05/18/2009 Outpatient Historical HIS [facility] Sujatha Ledesma MD [address] [place] [address] Regional Enteritis of Unspecified Site (CMS/HCC) Social History Tobacco Use Types Packs/Day Years Used Date Smoking Tobacco: Never Assessed Comments Unknown Sex and Gender Information Value Date Recorded Sex Assigned at Not on file Legal Sex Female 5:28 AM DOCK COORDINATOR Gender Identity Not on file Sexual [...] CDT) CALCIUM 9.6 8.6 - 10.2 mg/dL [facility] CHLORIDE 100 96 - 108 mmol/L [facility] ALBUMIN 4.4 3.4 - 4.8 g/dL [facility] CREATININE 0.67 0.51 - 0.95 mg/dL [facility] SODIUM 139 135 - 145 mmol/L [facility] ALT 13 0 - 31 U/L [facility] ALKALINE PHOSPHATASE 48 35 - 104 U/L [facility] BILIRUBIN TOTAL 0.4 0.2 - 1.0 mg/dL [facility] CO2 26 22 - 30 mmol/L [facility] TOTAL PROTEIN 7.2 6.3 - 8.6 g/dL [facility] POTASSIUM 4.0 3.5 - 4.9 mmol/L [facility] GLUCOSE 109(H) 65 - 99 mg/dL [facility] AST 15 12 - 32 U/L [facility] BUN 7 6 - 20 mg/dL [facility] GFR, >60 >=60 mL/min/1. 7 sq meter [facility] GFR >60 >=60 mL/min/1. 7 sq meter [facility] Comment: Modification of Diet in Renal Disease (MDRD) study formula. Estimated GFR rate interpretative information for both Americans and non- Americans is available on the [facility] Intranet at: [email or web address] Select: Lab Policies and Procedures Select: Reference Ranges - GFR 05/18/2009 4:50 PM CDT 05/18/2009 5:14 PM CDT us Sujatha Prado MD CHEMISTRY ORDERABLES Edited INTERFACE SYSTEM Refer to clinic/hospital department [facility] CLIA# [id number] [address] [place] [address] * C-REACTIVE PROTEIN (05/18/2009 4:50 PM CDT) [facility] CRP 0.5 0.0 - 0.8 mg/dL [facility] 05/18/2009 4:50 PM CDT 05/18/2009 5:14 PM CDT us Sujatha Prado MD CHEMISTRY ORDERABLES Final Resu lt INTERFACE SYSTEM Refer to clinic/hospital department [facility] CLIA# [id number] [address] [place] [address] * (ABNORMAL) CBC WITH DIFFERENTIAL (05/18/2009 4:50 PM CDT) [facility] RBC 3.59(L) 3.90 - 4.90 M/uL [facility] MCHC 33.9 31.5 - 35.5 % [facility] MCV 102.8(H) 82.0 - 99.0 fL [facility] PLATELETS 373(H) 140 - 350 K/uL [facility] HEMOGLOBIN 12.5 11.8 - 14.8 g/dL [facility] RDW 14.1 11.5 - 14.5 % [facility] WBC 8.3 4.0 - 9.8 K/uL [facility] MCH 34.8(H) 27.2 - 32.6 pg [facility] MPV 10.1 9.3 - 12.4 fL [facility] HEMATOCRIT 36.9 35.5 - 44.0 % [facility] RDW-STDEV 52.3(H) 37.1 - 48.7 fL [facility] MONOCYTES 7 3 - 13 % [facility] MONOCYTE ABSOLUTE 0.62 0.10 - 1.30 K/uL [facility] NEUTROPHILS 73(H) 45 - 70 % [facility] NEUTROPHIL ABSOLUTE 6.06 1.90 - 7.00 K/uL [facility] EOSINOPHILS 2 0 - 7 % [facility] EOSINOPHIL ABSOLUTE 0.16 0.00 - 0.70 K/uL [facility] LYMPHOCYTES 18 16 - 45 % [facility] LYMPHOCYTE ABSOLUTE 1.46 0.70 - 4.50 K/uL [facility] BASOPHILS 1 0 - 2 % [facility] BASOPHILS ABSOLUTE 0.04 0.00 - 0.20 K/uL [facility] 05/18/2009 4:50 PM CDT 05/18/2009 5:12 PM CDT us Sujatha Prado MD HEMATOLOGY ORDERABLES Edited INTERFACE SYSTEM Refer to clinic/hospital department [facility] CLIA# [id number] [address] [place] [address] documented in this encounter Visit Diagnoses Diagnosis Regional enteritis of unspecified site (CMS/HCC) Regional enteritis of unspecified site documented in this encounter Care Teams Privacy Director Relationship Specialty Start Date End Date Tessy Francois DO [address] [place] [address] PCP - General 11/17/15 documented as of this encounter
--- OUTSIDE RECORDS SUMMARY | 2025-01-08 11:24 | XMS_ITS | Encounter Summary ---
Author Organization [employer] Address [address] [place] [address] Care Team Providers Care Chip Frier Name Role Phone Tessy Francois DO Primary Care Provider [phone] [phone] Encounter Details Date Type Department Care Team (Late st Contact Info) Description 08/28/2007 Outpatient Historical [facility] ([facility]) [address] [place] [address] Tristan Lance MD NO ADDRESS ON FILE Social History Tobacco Use Types Packs/Day Years Used Date Smoking Tobacco: Never Assessed Comments Unknown Sex and Gender Information Value Date Recorded Sex Assigned at Not on file Legal Sex Female 5:28 AM IMPROVEMENT NURSE Gender Identity Not on file Sexual Orientation Not on file documented as of this encounter Plan of Treatment Not on file documented as of this encounter Visit Diagnoses Not on filedocumented in this encounter Care Teams Chip Frier Relationship Specialty Start Date End Date Tessy Francois DO [address] [place] [address] PCP - General 11/17/15 documented as of this encounter
--- OUTSIDE RECORDS SUMMARY | 2025-01-08 11:24 | XMS_ITS | Encounter Summary ---
Author Organization [facility] Address [address] [place] [address] Care Team Providers Care Manufacturing Advisor Name Role Phone Priscila Tessydasha Mchugh Primary Care Provider +1 [phone] Encounter Details Date Type Department Care Team (Latest Contact Info) Description 01/26/2009 Outpatient Historical HIS [facility] Sujatha Ledesma MD [address] [place] [address] Regional Enteritis of Unspecified Site (CMS/HCC) Social History Tobacco Use Types Packs/Day Years Used Date Smoking Tobacco: Never Assessed Comments Unknown Sex and Gender Information Value Date Recorded Sex Assigned at Not on file Legal Sex Female 5:28 AM CONTACT CENTER ASSISTANT Gender Identity Not on file Sexual Orientation Not on file documented as of this encounter Plan of Treatment Not on file documented as of this encounter Procedures Procedure Name Priority Date/Time Associated Diagnosis Comments CBC WITH DIFFERENTIAL Routine 01/26/2009 4:41 PM CONTACT CENTER ASSISTANT documented in this encounter Results * (ABNORMAL) CBC WITH DIFFERENTIAL (01/26/2009 4:41 PM CONTACT CENTER ASSISTANT) RBC 4.32 3.90 - 4.90 M/uL [facility] MCHC 33.2 31.5 - 35.5 % [facility] MCV 97.0 82.0 - 99.0 fL [facility] PLATELETS 317 140 - 350 K/uL [facility] HEMOGLOBIN 13.9 11.8 - 14.8 g/dL [facility] RDW 13.2 11.5 - 14.5 % [facility] WBC 12.1(H) 4.0 - 9.8 K/uL [facility] MCH 32.2 27.2 - 32.6 pg [facility] MPV 10.5 9.3 - 12.4 fL [facility] HEMATOCRIT 41.9 35.5 - 44.0 % [facility] RDW-STDEV 46.5 37.1 - 48.7 fL [facility] MONOCYTE ABSOLUTE 0.82 0.10 - 1.30 K/uL [facility] LYMPHOCYTES 16 16 - 45 % [facility] NEUTROPHIL ABSOLUTE 9.16(H) 1.90 - 7.00 K/uL [facility] NEUTROPHILS 76(H) 45 - 70 % [facility] EOSINOPHILS 1 0 - 7 % [facility] EOSINOPHIL ABSOLUTE 0.06 0.00 - 0.70 K/uL [facility] LYMPHOCYTE ABSOLUTE 1.96 0.70 - 4.50 K/uL [facility] BASOPHILS 0 0 - 2 % [facility] BASOPHILS ABSOLUTE 0.05 0.00 - 0.20 K/uL [facility] MONOCYTES 7 3 - 13 % [facility] Blood specimen (specimen) 01/26/2009 4:41 PM CONTACT CENTER ASSISTANT 01/26/2009 5:07 PM CONTACT CENTER ASSISTANT us Sujatha Prado MD HEMATOLOGY ORDERABLES Edited INTERFACE SYSTEM Refer to clinic/hospital department [facility] CLIA# [id number] [address] [place] [address] documented in this encounter Visit Diagnoses Diagnosis Regional enteritis of unspecified site (CMS/HCC) Regional enteritis of unspecified site documented in this encounter Care Teams Manufacturing Advisor Relationship Specialty Start Date End Date Tessy Francois DO [address] [place] [address] PCP - General 11/17/15 documented as of this encounter
--- OUTSIDE RECORDS SUMMARY | 2025-01-08 11:24 | XMS_ITS | Encounter Summary ---
Author Organization [employer] Address [address] [place] [address] Care Team Providers Care Marble Rubber Name Role Phone Priscila Tessy Britte Primary Care Provider +1 [phone] Encounter Details Date Type Department Care Team (Late st Contact Info) Description 09/24/2008 Outpatient Historical [facility] Nadia Sarabia MD Social History Tobacco Use Types Packs/Day Years Used Date Smoking Tobacco: Never Assessed Comments Unknown Sex and Gender Information Value Date Recorded Sex Assigned at Not on file Legal Sex Female 5:28 AM EXTRACT WRINGER Gender Identity Not on file Sexual Orientation [...] AM CDT Narrative 09/28/2008 11:12 AM CDT [facility] [address] [place], [place] [address] Admit Date: 09/24/2008 ZEINA COLE Sex: F Admit Prov: NADIA SARABIA Date: 1960 Primary Care Prov: NADIA SARABIA CMRN: [id number] Room: [facility] SSN: [id number] IMAGING SERVICES Ordering Prov: N/A Accession Number: [id number] Interpretation SMALL BOWEL SERIES, 09/28/2008 Clinical History: Crohn's disease, right lower quadrant abdominal pain, possible jejunal intussusception seen on recent abdominal CT. Findings: A preliminary abdominal financial aid manager radiograph is not remarkable. Following oral administration [...] Procedure Note Tristan Cates MD - 09/28/2008 [facility] [address] [place], [place] [address] Admit Date: 09/24/2008 COLE ZEINA Carolina Sex: F Admit Prov: NADIA SARABIA Date: 1960 Primary Care Prov: NADIA SARABIA CMRN: [id number] Room: [facility] SSN: [id number] IMAGING SERVICES Ordering Prov: N/A Interpretation SMALL BOWEL SERIES, 09/28/2008 Clinical History: Crohn's disease, right lower quadrant abdominalpain, possible jejunal intussusception seen on recent abdominal CT. Findings: A preliminary abdominal financial aid manager radiograph is notremarkable. Following oral administration of [...] ALKALINE PHOSPHATASE 66 35 - 104 U/L [facility] ALT 14 0 - 31 U/L [facility] CHLORIDE 98 96 - 108 mmol/L [facility] AST 15 12 - 32 U/L [facility] BUN 7 6 - 20 mg/dL [facility] TOTAL PROTEIN 6.5 6.3 - 8.6 g/dL [facility] BILIRUBIN TOTAL 0.3 0.2 - 1.0 mg/dL [facility] CREATININE 0.76 0.51 - 0.95 mg/dL [facility] CO2 27 22 - 30 mmol/L [facility] ALBUMIN 3.7 3.4 - 4.8 g/dL [facility] SODIUM 132(L) 135 - 145 mmol/L [facility] CALCIUM 8.8 8.6 - 10.2 mg/dL [facility] GLUCOSE 123(H) 65 - 99 mg/dL [facility] POTASSIUM 3.2(L) 3.5 - 4.9 mmol/L [facility] GFR, >60 >=60 mL/min/1. 7 sq meter [facility] GFR >60 >=60 mL/min/1. 7 sq meter [facility] Comment: Modification of Diet in Renal Disease (MDRD) study formula. Estimated GFR rate interpretative information for both Americans and non- Americans is available on the [facility] Intranet at: [email or web address] Select: Lab Policies and Procedures Select: Reference Ranges - GFR Blood specimen (specimen) 09/24/2008 2:27 PM CDT 09/24/2008 2:33 PM CDT Nadia Sarabia MD CHEMISTRY ORDERABLES Edited INTERFACE SYSTEM Refer to clinic/hospital department [facility] CLIA# [id number] [address] [facility] [address] [place] [address] * (ABNORMAL) CBC WITH DIFFERENTIAL (09/24/2008 2:27 PM CDT) WBC 8.0 4.0 - 9.8 K/uL [facility] MCH 32.1 27.2 - 32.6 pg [facility] MPV 10.2 9.3 - 12.4 fL [facility] HEMATOCRIT 38.8 35.5 - 44.0 % [facility] RDW-STDEV 43.3 37.1 - 48.7 fL [facility] RBC 4.02 3.90 - 4.90 M/uL [facility] MCHC 33.2 31.5 - 35.5 % [facility] MCV 96.5 82.0 - 99.0 fL [facility] PLATELETS 312 140 - 350 K/uL [facility] HEMOGLOBIN 12.9 11.8 - 14.8 g/dL [facility] RDW 12.3 11.5 - 14.5 % [facility] MONOCYTES 9 3 - 13 % [facility] MONOCYTE ABSOLUTE 0.75 0.10 - 1.30 K/uL [facility] NEUTROPHILS 71(H) 45 - 70 % [facility] NEUTROPHIL ABSOLUTE 5.70 1.90 - 7.00 K/uL [facility] EOSINOPHILS 3 0 - 7 % [facility] EOSINOPHIL ABSOLUTE 0.20 0.00 - 0.70 K/uL [facility] LYMPHOCYTES 16 16 - 45 % [facility] LYMPHOCYTE ABSOLUTE 1.30 0.70 - 4.50 K/uL [facility] BASOPHILS 1 0 - 2 % [facility] BASOPHILS ABSOLUTE 0.05 0.00 - 0.20 K/uL [facility] Blood specimen (specimen) 09/24/2008 2:27 PM CDT 09/24/2008 2:33 PM CDT us Nadia Sarabia MD HEMATOLOGY ORDERABLES Edited INTERFACE SYSTEM Refer to clinic/hospital department [facility] CLIA# [id number] [address] [facility] [address] [place] [address] [address] * CT ABDOMEN PELVIS W CONTRAST (09/24/2008 2:12 PM CDT) Anatomical Region Laterality Modality Abdomen Other 09/24/2008 2:12 PM CDT Narrative 09/24/2008 4:46 PM CDT [facility] [address] [place], [place] [address] Admit Date: 09/24/2008 ZEINA COLE Sex: F Admit Prov: NADIA SARABIA Date: 1960 Primary Care Prov: NADIA SARABIA CMRN: [id number] Room: [facility] SSN: [id number] IMAGING SERVICES Ordering Prov: N/A Accession Number: [id number] Interpretation CT SCAN OF THE ABDOMEN AND [...] Procedure Note Olimpia Cavanaugh MD - 09/24/2008 [facility] [address] [place], [place] [address] Admit Date: 09/24/2008 ZEINA COLE Sex: F Admit Prov: NADIA SARABIA Date: 1960 Primary Care Prov: NADIA SARABIA CMRN: [id number] Room: [facility] SSN: [id number] IMAGING SERVICES Ordering Prov: N/A Interpretation CT [...] CREATININE POC 0.8 0.6 - 1.3 mg/dL [facility] GFR, >60 >=60 mL/min/1.7 sq meter [facility] GFR >60 >=60 mL/min/1.7 sq meter [facility] Capillary blood specimen (specimen) 09/24/2008 2:05 PM CDT 09/24/2008 2:05 PM CDT us Nadia Sarabia MD POINT OF CARE TESTING Edited INTERFACE SYSTEM Refer to clinic/hospital department [facility] CLIA# [id number] [address] [place] [address] documented in this encounter Visit Diagnoses Not on filedocumented in this encounter Care Teams Marble Rubber Relationship Specialty Start Date End Date Tessy Francois DO [address] [place] [address] PCP - General 11/17/15 documented as of this encounter
--- OUTSIDE RECORDS SUMMARY | 2025-01-08 11:24 | XMS_ITS | Patient Health Summary ---
Author Organization [facility] Address [address] [place] [address] Care Team Providers Care Branch Retail Executive Name Role Phone Dillan Woody MD Primary Care Provider [phone] Note from [facility],non-owned Affiliates and Associated Physician Practices is amultiple site organization consisting of ambulatory clinics and hospital sitesin [place], [place], [place] and [place]. This disclosure is being madepursuant to the Care Everywhere program and may not contain all information available regarding this patient. Last updated 18.[facility] Allergies * Ciprofloxacin(Rash at infusion site immediately [...] daily. * Cyanocobalamin (NASCOBAL) 500 MCG/0.1ML SOLN Humphrey 1 Squirt into the nose every 7 [...] 36.3 C (97.3 F) 01/07/2011 8:00 AM SUSTAINABLE AGRICULTURE SPECIALIST Respiratory Rate 18 01/07/2011 8:00 AM SUSTAINABLE AGRICULTURE SPECIALIST Oxygen Saturation 100% 01/05/2011 8:00 PM SUSTAINABLE AGRICULTURE SPECIALIST Inhaled Oxygen Concentration - - Weight 73.9 [...] ICD9 [facility] ACCOUNT BILL Comment:V72.31 ; Routine chainman ecological examination Performed by [facility] ACCOUNT BILL [...] Thin Prep Vial Resulting Agency Comment [facility] [address] [id number] Rock Bullock MD LAB - PATHOLOGY/CYTO LOGY ORDERABLES [facility] ACCOUNT BILL * MAMMO DIAG DIRECT DIGITAL IMAGE UNIL LEFT (08/13/2011) Anatomical Region Laterality Modality Left Other Rock Bullock MD MAMMO ORDERABLES * MAMMOGRAPHY ORDER (07/17/2011) Anatomical Region Laterality Modality Other Rock Bullock MD MAMMO ORDERABLES * (ABNORMAL) CBC W AUTO DIFFERENTIAL (01/06/2011 4:05 AM SUSTAINABLE AGRICULTURE SPECIALIST) WBC 10.0 4.5 - 11.0 1000/mm3 [facility] RBC 2.74(L) 4.2 - 5.4 10X6 [facility] Hemoglobin 10.1(L) 12.0 - 16.0 gm/dl [facility] Hematocrit 29.9(L) 36.0 - 48.0 % [facility] MCV 109.1(H) 80.0 - 99.0 fl [facility] MCH 36.9(H) 25.0 - 31.0 pg [facility] MCHC 33.8 32.0 - 36.0 gm/dl [facility] RDW 14.1 11.5 - 14.5 % [facility] Platelet Count 205 130.0 - 400.0 1000/mm3 [facility] Granulocytes % 78.9(H) 40.0 - 70.0 % [facility] Lymphocytes % 9.8(L) 22.0 - 40.0 % [facility] Monocytes % 10.8(H) 2.0 - 10.0 % [facility] Eosinophils % 0.2 0.0 - 6.0 % [facility] Basophils % 0.3 0.0 - 3.0 % [facility] Granulocytes Absolute 7.92(H) 1.8 - 7.7 [facility] Lymphocytes Absolute 0.98(L) 1.0 - 5.4 [facility] Monocytes Absolute 1.08 0.1 - 1.1 [facility] Eosinophils Absolute 0.02 0.0 - 0.7 [facility] Basophils Absolute 0.03 0.0 - 0.2 [facility] Comment Manual Diff Not Indicated [facility] BLOOD SPECIMEN / Unknown 01/06/2011 4:05 AM SUSTAINABLE AGRICULTURE SPECIALIST 01/06/2011 4:33 AM SUSTAINABLE AGRICULTURE SPECIALIST Rock Bullock MD LAB - HEMATOLOGY ORD ERABLES [facility] [address] [place] [address] * XR ABDOMEN 1 VW (01/05/2011 9:58 AM SUSTAINABLE AGRICULTURE SPECIALIST) Anatomical Region Laterality Modality Abdomen Radiographic Kavya ging 01/05/2011 10:1 4 AM SUSTAINABLE AGRICULTURE SPECIALIST Impressions 01/05/2011 10:14 AM SUSTAINABLE AGRICULTURE SPECIALIST Normal KUB Narrative 01/05/2011 10:14 AM SUSTAINABLE AGRICULTURE SPECIALIST Abdomen KUB Indication: Evaluate for retained surgical [...] GROSS + MICRO EXAM (01/05/2011 9:06 AM SUSTAINABLE AGRICULTURE SPECIALIST) [facility] Surgeon Dr. Bullock [facility] Grossed By ANANTH VELA [facility] Gross Report [facility] Comment: SURGEON: Dr. Bullock COPY TO: [...] up to about 0.7 cm in diameter. Fiberglass Boat Builder sections of the specimen are submitted as follows: A-B. Anterior and posterior cervix. C-D. Anterior and posterior endomyometrium and serosa. E-H. Possible myomas with largest myoma in G and H. I-J. Left and right ovaries and tubes. LW/angie Microscopic Examination [facility] Comment: MICROSCOPIC: The section of the [...] The fallopian tubes are normal. BYRON/yoel Diagnosis [facility] Comment: DIAGNOSIS: 1. Uterus, total abdominal hysterectomy with bilateral salpingo- oophorectomy: Cervix: -- No pathologic diagnosis Endometrium: -- Weakly proliferative pattern Myometrium: -- Leiomyomata -- Adenomyosis Ovary, left: -- Follicular cyst Ovary, right: -- Hemorrhagic corpus luteum Fallopian tubes, bilateral: -- No pathologic diagnosis BYRON/yoel Released by Prema BENITEZ [facility] CPT Code 24144 [facility] HYSTERECTOMY AND BILATERAL SALPINGO-OOPHORECTOM Y SPECIMEN / Unknown 01/05/2011 9:06 AM SUSTAINABLE AGRICULTURE SPECIALIST 01/05/2011 9:06 AM SUSTAINABLE AGRICULTURE SPECIALIST Rock Bullock MD LAB - PATHOLOGY/CYTO LOGY ORDERABLES Performing Organization Address [facility] Co de Phone Number [facility] [address] [place] [address] * HCG URINE QUALITATIVE - POINT OF CARE (01/05/2011 6:15 AM SUSTAINABLE AGRICULTURE SPECIALIST) HCG Qual Urine neg Negative [facility] POCT TESTING QC Verified yes Yes [facility] POC T TESTING Urine specimen (specimen) URINE / Unknown 01/05/2011 6:15 AM SUSTAINABLE AGRICULTURE SPECIALIST Paul Stevenson MD LAB - POINT OF CARE ORDERABLES Performing Organization Address [facility] Co de Phone Number [facility] PO[facility] [address] [place] [address] * HGB HCT PANEL (01/05/2011 6:10 AM SUSTAINABLE AGRICULTURE SPECIALIST) Hemoglobin 13.2 12.0 - 16.0 gm/dl [facility] Hematocrit 38.0 36.0 - 48.0 % [facility] BLOOD SPECIMEN / Unknown 01/05/2011 6:10 AM SUSTAINABLE AGRICULTURE SPECIALIST 01/05/2011 6:18 AM SUSTAINABLE AGRICULTURE SPECIALIST Rock Bullock MD LAB - HEMATOLOGY ORD ERABLES Performing Organization Address [facility] de Phone Number [facility] [address] [place] [address] * US PELVIS WITH TRANSVAG NON OB (12/26/2010 8:19 AM SUSTAINABLE AGRICULTURE SPECIALIST) Anatomical Region Laterality Modality Pelvis Ultrasound 12/26/2010 10:1 6 AM SUSTAINABLE AGRICULTURE SPECIALIST Impressions 12/26/2010 10:31 AM SUSTAINABLE AGRICULTURE SPECIALIST The uterus is grossly enlarged, lobulated in contour, and heterogeneous in echotexture, consistent with the presence of multiple myomata. The ovaries are sonographically unremarkable. Narrative 12/26/2010 10:31 AM SUSTAINABLE AGRICULTURE SPECIALIST ULTRASOUND PELVIS - TRANSABDOMINAL/TRANSVAGINAL WITH DOPPLER Indication: [...] x 2.03 cm in size. Procedure Note Rdaha Short MD - 12/26/2010 ULTRASOUND PELVIS - [...] unremarkable. Rock Bullock MD ORDERABLES Care Teams Branch Retail Executive Relationship Specialty Start Date End Date Dillan Woody MD PCP - General Internal Medicine 02/26/12
--- OUTSIDE RECORDS SUMMARY | 2025-01-08 11:24 | XMS_ITS | Encounter Summary ---
Author Organization [facility] Address [address] [place] [address] Care Team Providers Care Claims Vice President Name Role Phone FrancoisTessy verduzco Primary Care Provider [phone] Encounter Details Date Type Department Care Team (Latest Contact Info) Description 10/23/2008 Outpatient Historical HIS [facility] Sujatha Ledesma MD [address] [place] [address] Functional Diarrhea Social History Tobacco Use Types Packs/Day Years Used Date Smoking Tobacco: Never Assessed Comments Unknown Sex and Gender Information Value Date Recorded Sex Assigned at Not on file Legal Sex Female 5:28 AM WELDING SPECIALIST Gender Identity Not on file Sexual Orientation Not on file documented as of this encounter Plan of Treatment Not on file documented as of this encounter Procedures Procedure Name Priority Date/Time Associated Diagnosis Comments C-REACTIVE PROTEIN Routine 10/23/2008 8: 19 AM WELDING SPECIALIST documented in this encounter Results * C-REACTIVE PROTEIN (10/23/2008 8:19 AM WELDING SPECIALIST) CRP 0.2 0.0 - 0.8 mg/dL [facility] Blood specimen (specimen) 10/23/2008 8:19 AM WELDING SPECIALIST 10/23/2008 9:00 AM WELDING SPECIALIST us Sujatha Prado MD CHEMISTRY ORDERABLES Final Resu lt INTERFACE SYSTEM Refer to clinic/hospital department [facility] CLIA# [id number] [address] [place] [address] documented in this encounter Visit Diagnoses Diagnosis Functional diarrhea documented in this encounter Care Teams Claims Vice President Relationship Specialty Start Date End Date Tessy Francois DO [address] [place] [id number] PCP - General 11/17/15 documented as of this encounter
--- OUTSIDE RECORDS SUMMARY | 2025-01-08 11:24 | XMS_ITS | Encounter Summary ---
Author Organization [facility] Address [address] [place] [address] Care Team Providers Care Equity Research Analyst Name Role Phone FrancoisTessy verduzco Primary Care Provider [phone] Encounter Details Date Type Department Care Team (Latest Contact Info) Description 12/06/2008 Outpatient Historical HIS [facility] Sujatha Ledesma MD [address] [place] [address] Regional Enteritis of Large Intestine (CMS/HCC) Social History Tobacco Use Types Packs/Day Years Used Date Smoking Tobacco: Never Assessed Comments Unknown Sex and Gender Information Value Date Recorded Sex Assigned at Not on file Legal Sex Female 5:28 AM HAND BINDERY ASSEMBLY WORKER Gender Identity Not on file Sexual Orientation Not on file documented as of this encounter Plan of Treatment Not on file documented as of this encounter Procedures Procedure Name Priority Date/Time Associated Diagnosis Comments MISCELLANEOUS LAB TEST Routine 9 10:17 AM HAND BINDERY ASSEMBLY WORKER documented in this encounter Results * MISCELLANEOUS LAB TEST (12/06/2008 10:17 AM HAND BINDERY ASSEMBLY WORKER) TEST NAME TPMT PROMETHEUS [facility] SPECIMEN TYPE Blood [facility] MISCELLANEOUS LAB TEST Name of Test: TPMT Test Result: TPMT*1/TPMT*1 Alleles present are associated with Normal Enzyme Activity Reference Range: TPMT*1/TPMT*1 Test Performed By: [employer] [place], [place] [facility] Specimen of unknown material (specimen) 12/06/2008 10:17 AM HAND BINDERY ASSEMBLY WORKER 12/06/2008 10:34 AM HAND BINDERY ASSEMBLY WORKER Narrative INTERFACE SYSTEM - 12/09/2008 8:39 AM HAND BINDERY ASSEMBLY WORKER Name of test:tpmt genotype us Sujatha Prado MD CHEMISTRY ORDERABLES Edited INTERFACE SYSTEM Refer to clinic/hospital department [facility] CLIA# [id number] [address] [place] [address] documented in this encounter Visit Diagnoses Diagnosis Regional enteritis of large intestine (CMS/HCC) Regional enteritis of large intestine documented in this encounter Care Teams Equity Research Analyst Relationship Specialty Start Date End Date Tessy Francois DO [address] [place] [address] PCP - General 11/17/15 documented as of this encounter
--- OUTSIDE RECORDS SUMMARY | 2025-01-08 11:24 | XMS_ITS | Encounter Summary ---
Author Organization [facility] Address [address] [place] [address] Care Team Providers Care Instructional Supervisor Name Role Phone Tessy Francois DO Primary Care Provider [phone] Encounter Details Date Type Department Care Team (Late st Contact Info) Description 08/28/2007 Outpatient Historical [facility] Blood Flow [address] [place] [address] Riaz Alvarado MD NO ADDRESS ON FILE Social History Tobacco Use Types Packs/Day Years Used Date Smoking Tobacco: Never Assessed Comments Unknown Sex and Gender Information Value Date Recorded Sex Assigned at Not on file Legal Sex Female 5:28 AM ECOMMERCE PROJECT MANAGER Gender Identity Not on file Sexual Orientation Not on file documented as of this encounter Plan of Treatment Not on file documented as of this encounter Visit Diagnoses Not on filedocumented in this encounter Care Teams Instructional Supervisor Relationship Specialty Start Date End Date Tessy Francois DO [address] [place] [address] PCP - General 11/17/15 documented as of this encounter
--- OUTSIDE RECORDS SUMMARY | 2025-01-08 11:24 | XMS_ITS | Encounter Summary ---
Author Organization [facility] Address [address] Attn: Epic Prelude ADT [place] [address] Care Team Providers Care Dental Sales Representative Name Role Phone Tessy Francois DO Primary Care Provider [phone] Encounter Details Date Type Department Care Team (Late st Contact Info) Description 08/27/2007 Outpatient Historical Amari Emmanuel MD NO ADDRESS ON FILE Social History Tobacco Use Types Packs/Day Years Used Date Smoking Tobacco: Never Assessed Comments Unknown Sex and Gender Information Value Date Recorded Sex Assigned at Not on file Legal Sex Female 5:28 AM PAPER COATER Gender Identity Not on file Sexual Orientation Not on file documented as of this encounter Plan of Treatment Not on file documented as of this encounter Visit Diagnoses Not on filedocumented in this encounter Care Teams Dental Sales Representative Relationship Specialty Start Date End Date Tessy Francois DO [address] [place] [address] PCP - General 11/17/15 documented as of this encounter
--- OUTSIDE RECORDS SUMMARY | 2025-01-08 11:24 | XMS_ITS | Encounter Summary ---
Author Organization [facility] Address [address] [place] [address] Care Team Providers Care Online Tutor Name Role Phone Rock Bullock MD Primary Care Provider [phone] Dillan Woody MD Primary Care Provider [phone] Encounter Details Date Type Department Care Team (Late st Contact Info) Description 12/28/2010 [facility] Outpatient Visit EXTERNAL NON-[facility] DEPT Rock Bullock MD [address] [place] [address] Social History Tobacco Use Types [...] on filedocumented in this encounter Care Teams Online Tutor Relationship Specialty Start Date End Date Rock Bullock MD [address] [place] [address] PCP - General 12/26/10 02/25/12 Dillan Woody MD [address] [place] [address] PCP - General Internal Medicine 02/26/12 documented as of this encounter
--- OUTSIDE RECORDS SUMMARY | 2025-01-08 11:25 | XMS_ITS | Encounter Summary ---
Author Organization [employer] Address 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 Gender Identity Not on file Sexual Orientation Not on file documented as of this encounter Plan of Treatment Not on file documented as of this encounter Procedures Procedure Name Priority Date/Time Associated Diagnosis Comments CT HEAD WO CONTRAST Routine 12/29/2008 4 :15 PM MACHINE PLASTER MIXER CBC WITH DIFFERENTIAL Stat 12/29/2008 2:48 PM MACHINE PLASTER MIXER C-REACTIVE PROTEIN Stat 12/29/2008 2: 48 PM MACHINE PLASTER MIXER COMPREHENSIVE METABOLIC PANEL Stat 12/29/2008 2:48 PM MACHINE PLASTER MIXER documented in this encounter Results * CT HEAD WO CONTRAST (12/29/2008 4:15 PM MACHINE PLASTER MIXER) Anatomical Region Laterality Modality Head Other 12/29/2008 4:15 PM MACHINE PLASTER MIXER Narrative 12/29/2008 4:28 PM [facility] [address] [place], [place] [address] Admit Date: 12/29/2008 ZEINA COLE Sex: F Admit Prov: ER, AUTHORIZED P Date: 1960 Primary Care Prov: NADIA PEÑALOZA CMRN: [id number] [id number] Ordering Prov: N/A Accession Number: [id number] Interpretation [address] head without contrast 12/29/2008.. History: [...] Meg Cheung 12/29/2008 [facility] [address] [place], [place] [address] Admit Date: 12/29/2008 ZEINA COLE Sex: F Admit Prov: ER, AUTHORIZED P Date: 1960 Primary Care Prov: NADIA PEÑALOZA CMRN: [id number] [id number] [facility] Ordering Prov: N/A Interpretation CT [...] Result * C-REACTIVE PROTEIN (12/29/2008 2:48 PM MACHINE PLASTER MIXER) CRP 0.3 0.0 - 0.8 mg/dL [facility] Blood specimen (specimen) 12/29/2008 2:48 PM MACHINE PLASTER MIXER 12/29/2008 3:01 PM MACHINE PLASTER MIXER Manjit Mendiola MD CHEMISTRY ORDERABLES Final R esult INTERFACE SYSTEM Refer to clinic/hospital department [facility] CLIA# [id number] [address] [place] [address] * (ABNORMAL) COMPREHENSIVE METABOLIC PANEL (12/29/2008 2:48 PM MACHINE PLASTER MIXER) CREATININE 0.67 0.51 - 0.95 mg/dL [facility] SODIUM 136 135 - 145 mmol/L [facility] ALT 26 0 - 31 U/L [facility] ALKALINE PHOSPHATASE 46 35 - 104 U/L [facility] BILIRUBIN TOTAL 0.4 0.2 - 1.0 mg/dL [facility] CO2 26 22 - 30 mmol/L [facility] TOTAL PROTEIN 6.6 6.3 - 8.6 g/dL [facility] POTASSIUM 4.0 3.5 - 4.9 mmol/L [facility] GLUCOSE 119(H) 65 - 99 mg/dL [facility] AST 22 12 - 32 U/L [facility] BUN 8 6 - 20 mg/dL [facility] CALCIUM 9.3 8.6 - 10.2 mg/dL [facility] CHLORIDE 101 96 - 108 mmol/L [facility] ALBUMIN 4.0 3.4 - 4.8 g/dL [facility] GFR, >60 >=60 mL/min/1. 7 sq meter [facility] GFR >60 >=60 mL/min/1. 7 sq meter [facility] Comment: Modification of Diet in Renal Disease (MDRD) study formula. Estimated GFR rate interpretative information for both Americans and non- Americans is available on the [facility] Intranet at: [email or web address] Select: Lab Policies and Procedures Select: Reference Ranges - GFR Blood specimen (specimen) 12/29/2008 2:48 PM MACHINE PLASTER MIXER 12/29/2008 3:01 PM MACHINE PLASTER MIXER us Manjit Mendiola MD CHEMISTRY ORDERABLES Edited INTERFACE SYSTEM Refer to clinic/hospital department [facility] CLIA# [id number] [address] [place] [address] * (ABNORMAL) CBC WITH DIFFERENTIAL (12/29/2008 2:48 PM MACHINE PLASTER MIXER) RDW-STDEV 43.8 37.1 - 48.7 fL [facility] RBC 4.38 3.90 - 4.90 M/uL [facility] MCHC 33.8 31.5 - 35.5 % [facility] MCV 95.2 82.0 - 99.0 fL [facility] PLATELETS 304 140 - 350 K/uL [facility] HEMOGLOBIN 14.1 11.8 - 14.8 g/dL [facility] RDW 12.6 11.5 - 14.5 % [facility] WBC 11.0(H) 4.0 - 9.8 K/uL [facility] MCH 32.2 27.2 - 32.6 pg [facility] MPV 10.2 9.3 - 12.4 fL [facility] HEMATOCRIT 41.7 35.5 - 44.0 % [facility] MONOCYTES 4 3 - 13 % [facility] MONOCYTE ABSOLUTE 0.47 0.10 - 1.30 K/uL [facility] NEUTROPHILS 78(H) 45 - 70 % [facility] NEUTROPHIL ABSOLUTE 8.58(H) 1.90 - 7.00 K/uL [facility] EOSINOPHILS 1 0 - 7 % [facility] EOSINOPHIL ABSOLUTE 0.05 0.00 - 0.70 K/uL [facility] LYMPHOCYTES 17 16 - 45 % [facility] LYMPHOCYTE ABSOLUTE 1.89 0.70 - 4.50 K/uL [facility] BASOPHILS 0 0 - 2 % [facility] BASOPHILS ABSOLUTE 0.03 0.00 - 0.20 K/uL [facility] Blood specimen (specimen) 12/29/2008 2:48 PM MACHINE PLASTER MIXER 12/29/2008 3:01 PM MACHINE PLASTER MIXER us Manjit Mendiola MD HEMATOLOGY ORDERABLES Edited INTERFACE SYSTEM Refer to clinic/hospital department [facility] CLIA# [id number] [address] [place] [address] documented in this encounter Visit Diagnoses Not on filedocumented in this encounter Care Teams Hospital Carrier Relationship Specialty Start Date End Date Tessy Francois DO [address] [place] [address] PCP - General 11/17/15 documented as of this encounter
[2025-01-08 11:29] LABS: Troponin I < 0.012 ng/mL (0.000-0.034)
[2025-01-08 11:48] LABS: NT Pro B Type Natriuretic Pept 806 pg/mL (19.9-100)
[2025-01-08] MEDS: diphenhydrAMINE HCl INJ 50 MG/ML VIAL 25 MG IV PUSH (11:54)
[2025-01-08] MEDS: ASPIRIN 81 MG CHEWABLE TABLET 324 MG PO (11:54)
[2025-01-08] MEDS: ACETAMINOPHEN 500 MG TABLET 1000 MG PO (11:54)
[2025-01-08] MEDS: PROCHLORPERAZINE EDISYLATE 10 MG/2 ML VIAL IV PUSH (11:55)
[2025-01-08 12:07] LABS: INR 0.9; Prothrombin Time 12.6 Seconds (11.1-14.7)
[2025-01-08 12:08] LABS: Partial Thromboplastin Time 27.4 Seconds (22.3-36.8)
--- OUTSIDE RECORDS SUMMARY | 2025-01-08 12:17 | XMS_ITS | Encounter Summary ---
Author Organization [facility] Address [address] [place] [address] Care Team Providers Care Cement Patcher Name Role Phone Priscila Tessydasha Mchugh Primary Care Provider [phone] [phone] Encounter Details Date Type Department Care Team (Latest Contact Info) Description 01/26/2009 Outpatient Historical HIS [facility] Sujatha Ledesma MD [address] [place] [address] Regional Enteritis of Unspecified Site (CMS/HCC) Social History Tobacco Use Types Packs/Day Years Used Date Smoking Tobacco: Never Assessed Comments Unknown Sex and Gender Information Value Date Recorded Sex Assigned at Not on file Legal 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 Female 5:28 AM 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 Gender Identity Not on file Sexual Orientation Not on file documented as of this encounter Plan of Treatment Not on file documented as of this encounter Procedures Procedure Name Priority Date/Time Associated Diagnosis Comments CBC WITH DIFFERENTIAL Routine 01/26/2009 4:41 PM PIANO BUILDER documented in this encounter Results * (ABNORMAL) CBC WITH DIFFERENTIAL (01/26/2009 4:41 PM PIANO BUILDER) RBC 4.32 3.90 - 4.90 M/uL [facility] MCHC 33.2 31.5 - 35.5 % [facility] MCV 97.0 82.0 - 99.0 fL [facility] PLATELETS 317 140 - 350 K/uL [facility] HEMOGLOBIN 13.9 11.8 - 14.8 g/dL [facility] RDW 13.2 11.5 - 14.5 % [facility] WBC 12.1(H) 4.0 - 9.8 K/uL [facility] MCH 32.2 27.2 - 32.6 pg [facility] MPV 10.5 9.3 - 12.4 fL [facility] HEMATOCRIT 41.9 35.5 - 44.0 % [facility] RDW-STDEV 46.5 37.1 - 48.7 fL [facility] MONOCYTE ABSOLUTE 0.82 0.10 - 1.30 K/uL [facility] LYMPHOCYTES 16 16 - 45 % [facility] NEUTROPHIL ABSOLUTE 9.16(H) 1.90 - 7.00 K/uL [facility] NEUTROPHILS 76(H) 45 - 70 % [facility] EOSINOPHILS 1 0 - 7 % [facility] EOSINOPHIL ABSOLUTE 0.06 0.00 - 0.70 K/uL [facility] LYMPHOCYTE ABSOLUTE 1.96 0.70 - 4.50 K/uL [facility] BASOPHILS 0 0 - 2 % [facility] BASOPHILS ABSOLUTE 0.05 0.00 - 0.20 K/uL [facility] MONOCYTES 7 3 - 13 % [facility] Blood specimen (specimen) 01/26/2009 4:41 PM PIANO BUILDER 01/26/2009 5:07 PM PIANO BUILDER us uSjatha Prado MD HEMATOLOGY ORDERABLES Edited INTERFACE SYSTEM Refer to clinic/hospital department [facility] CLIA# [id number] [address] [place] [address] documented in this encounter Visit Diagnoses Diagnosis Regional enteritis of unspecified site (CMS/HCC) Regional enteritis of unspecified site documented in this encounter Care Teams Cement Patcher Relationship Specialty Start Date End Date Tessy Francois DO [address] [place] [phone] PCP - General 11/17/15 documented as of this encounter
--- OUTSIDE RECORDS SUMMARY | 2025-01-08 12:17 | XMS_ITS | Encounter Summary ---
Author Organization [employer] [facility] Address 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 MISCELLANEOUS LAB TEST Name of Test: [employer] THIOPURINE METABOLITES Test Result: Metabolite: 6-TGN Result (Units: pmole/8x10^8 RBC): 426 Reference Range: 230 ? 400 Result Assessment: Higher Risk of Leucopenia. Higher Likelihood of Response. Metabolite: 6-MMPN Result (Units: pmole/8x10^8 RBC): 2516 Reference Range: <5700 Result Assessment: Lower Risk of Hepatotoxicity. Test Performed By: [employer], [place], [place] [facility] Specimen of unknown material (specimen) 07/13/2009 12:26 PM CDT 07/13/2009 12:36 PM CDT us Sujatha Prado MD CHEMISTRY ORDERABLES Edited Performing Organization Address [facility]/ZIP Co de Phone Number [facility] CLIA# [id number] [address] [place] [address] * VITAMIN B12 (07/13/2009 12:26 PM CDT) Pathologist [facility] VITAMIN B12 303 211 - 946 pg/mL [facility] Comment: It has been reported that between 5 to 10% of patients with values between 200 and 400 pg/mL may experience neuropsychiatric and hematologic abnormalities due to occult B12 deficiency. Less than 1% of patients with values above 400 pg/mL will have symptoms. Blood specimen (specimen) 07/13/2009 12:26 PM CDT 07/13/2009 12:36 PM CDT us Sujatha Prado MD CHEMISTRY ORDERABLES Edited [facility] CLIA# [id number] [address] [place] [address] * TSH (07/13/2009 12:26 PM CDT) [facility] TSH 0.98 0.27 - 4.20 uU/mL [facility] Blood specimen (specimen) 07/13/2009 12:26 PM CDT 07/13/2009 12:36 PM CDT Sujatha Prado MD CHEMISTRY ORDERABLES Final Resu lt [facility] CLIA# [id number] [address] [place] [address] * (ABNORMAL) CBC WITH DIFFERENTIAL (07/13/2009 12:26 PM CDT) [facility] RDW 16.4(H) 11.5 - 14.5 % [facility] WBC 8.8 4.0 - 9.8 K/uL [facility] MCH 36.7(H) 27.2 - 32.[address] [facility] MPV 10.1 9.3 - 12.[address] [facility] HEMATOCRIT 39.9 35.5 - 44.0 % [facility] RDW-STDEV 63.0(H) 37.1 - 48.[address] [facility] RBC 3.73(L) 3.90 - 4.90 M/uL [facility] MCHC 34.3 31.5 - 35.5 % [facility] MCV 107.0(H) 82.0 - 99.[address] [facility] PLATELETS 380(H) 140 - 350 K/uL [facility] HEMOGLOBIN 13.7 11.8 - 14.8 g/dL [facility] LYMPHOCYTES 7(L) 16 - 45 % [facility] LYMPHOCYTE ABSOLUTE 0.60(L) 0.70 - 4.50 K/uL [facility] BASOPHILS 0 0 - 2 % [facility] BASOPHILS ABSOLUTE 0.02 0.00 - 0.20 K/uL [facility] MONOCYTES 2(L) 3 - 13 % [facility] MONOCYTE ABSOLUTE 0.18 0.10 - 1.30 K/uL [facility] NEUTROPHILS 91(H) 45 - 70 % [facility] NEUTROPHIL ABSOLUTE 7.94(H) 1.90 - 7.00 K/uL [facility] EOSINOPHILS 0 0 - 7 % [facility] EOSINOPHIL ABSOLUTE 0.01 0.00 - 0.70 K/uL [facility] Blood specimen (specimen) 07/13/2009 12:26 PM CDT 07/13/2009 12:36 PM CDT Sujatha Prado MD HEMATOLOGY ORDERABLES Edited [facility] CLIA# [id number] [address] [place] [address] documented in this encounter Visit Diagnoses Diagnosis Regional enteritis of unspecified site (CMS/HCC) Regional enteritis of unspecified site documented in this encounter Care Teams General Partner Relationship Specialty Start Date End Date Tessy Francois DO [address] [place] [address] PCP - General 11/17/15 documented as of this encounter
--- OUTSIDE RECORDS SUMMARY | 2025-01-08 12:17 | XMS_ITS | Clinical Summary ---
Author Organization [facility] Administrative Offices Address [address] [place] [address] Care Team Providers Care Aix Architect Name Role Phone Tessy Francois DO Primary Care Provider [phone] Allergies Active Allergy Reactions Criticality Noted Date Comments Cephalexin Anaphylaxis High 02/26/2013 Ciprofloxacin Unknown 02/26/2013 Hydrocodone Itching Low 04/01/2014 Unclassified Drug Seizure High 05/16/2017 spirolactine Medications FLUoxetine (PROZAC) 20 mg Oral tablet Take 1 Tab by mouth daily. 30 Tab 11 3 Active azaTHIOprine (IMURAN) 50 mg Oral tablet 3 Active NASCOBAL 500 mcg Both Nostril Horatio 3 Active DELZICOL 400 mg Oral CpDR [...] migh t be different from the original. 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 Gender Identity Not on file Sexual Orientation Not on file Occupation Industry Job Start Date Job End Date Not on file Not on file Not on file Not on file Last Filed Vital Signs Vital Sign Reading Time Taken Comments Blood Pressure 136/72 12/30/2017 8:37 AM BEATER TENDER Pulse 71 05/16/2017 10:45 AM CDT Temperature - - Respiratory Rate 17 08/11/2013 11:39 AM CDT Oxygen Saturation - - Inhaled Oxygen Concentration - - Weight 73.5 kg (162 lb) 12/30/2017 8:37 AM BEATER TENDER Height 171.5 cm (5' 7.5 ) 12/30/2017 8:37 AM BEATER TENDER Body Mass Index 25 12/30/2017 8:37 AM BEATER TENDER Plan of Treatment Health Maintenance Due Date Last Done Comments FIT-DNA Q 3 years 2007 Flex Sig/CT [...] OR WO CAD Routine 01/01/2018 10:27 AM BEATER TENDER Nipple discharge, bloody CERV/VAG CYTO SCREEN PAP RLFX HPV Routine 05/16/2017 11:14 AM CDT Encounter for gynecological examination without abnormal finding POC OCCULT BLOOD 1 CARD Routine 04/01/2014 1:30 PM CDT Routine gynecological examination from Last 3 Months or Most Recently Relevant to Health Maintenance Results * MAMMO DIAGNOSTIC BILATERAL W OR WO CAD (01/01/2018 10:27 AM BEATER TENDER) Anatomical Region Laterality Modality Breast Bilateral Mammography 01/01/2018 10:2 7 AM BEATER TENDER Impressions 01/01/2018 2:29 PM BEATER TENDER IMPRESSION: Bilateral breast implants. Negative and stable bilateral diagnostic mammogram. Mildly dilated ducts and occasional cysts, otherwise negative bilateral subareolar breast sonogram. If the bloody nipple discharge persists, recommend further evaluation with breast MRI. Overall Assessment: BI-RADS Category: 2. Benign finding(s). Dictation Location: [facility] 01/01/2018 2:29 PM BEATER TENDER BILATERAL DIAGNOSTIC DIGITAL IMPLANT MAMMOGRAMS WITH CAD [...] BI-RADS Category: 2. Benign finding(s). Dictation Location: [facility] Danny Chan MD MAMMO ORDERABLES Final Result [...] has been evaluated with computer assisted technology. YEAST MAKER: SEE COMMENT 2016 10:31 AM CDT [facility] Comment: TMK, CT(ASCP) CT screening location: [place] [address] [address] [place] [address] Genital SWAB OF ENDOCERVIX / Unknown Collection / Unknown 05/16/2017 11:14 AM CDT 05/16/2017 8:09 PM CDT Narrative [facility] - 05/23/2017 10:31 AM CDT Performing Organization Information: Site ID: SL Name: [facility] Address: Critical access hospital Administration [address] [address] Director: Chad Lemos MD Rock Bullock MD PATHOLOGY/CYTOLOGY ORDERABLES Fi nal Result [facility] * POC OCCULT BLOOD 1 CARD (04/01/2014 1:30 PM CDT) OCCULT BLOOD #1 Negative Negative [facility] Stool specimen (specimen) 04/01/2014 1:30 PM CDT us Rock Bullock MD POINT OF CARE TESTING Final Resu lt [facility] from Last 3 Months or Most Recently Relevant to Health Maintenance [place] [address] [id number] Member Subscriber Plan / Payer (Ef fective 2021-Present) Name:Gina Cole Relation to Subscriber:Spouse Name:SHAWNEE COLE Date of :1963 (Home) (Work) Address: [address] [place] [address] Payer ID:[id number] (NAIC) Type:PPO Address: [facility] [id number] [place] [id number] Care Teams Aix Architect Relationship Specialty Start Date End Date Tessy Francois DO [address] [place] [address] PCP - General 11/17/15
--- OUTSIDE RECORDS SUMMARY | 2025-01-08 12:17 | XMS_ITS | Encounter Summary ---
Author Organization [employer] Address 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 Gender Identity Not on file Sexual [...] mmol/L [facility] ALBUMIN 4.5 3.4 - 4.8 g/dL [facility] CREATININE 0.77 0.51 - 0.95 mg/dL [facility] SODIUM 138 135 - 145 mmol/L [facility] ALT 46(H) 0 - 31 U/L [facility] ALKALINE PHOSPHATASE 54 35 - 104 U/L [facility] BILIRUBIN TOTAL 0.3 0.2 - 1.0 mg/dL [facility] CO2 28 22 - 30 mmol/L [facility] TOTAL PROTEIN 7.2 6.3 - 8.6 g/dL [facility] POTASSIUM 3.9 3.5 - 4.9 mmol/L [facility] GLUCOSE 96 65 - 99 mg/dL [facility] AST 33(H) 12 - 32 U/L [facility] BUN 7 6 - 20 mg/dL [facility] GFR, >60 >=60 mL/min/1.7 sq meter [facility] GFR >60 >=60 mL/min/1.7 sq meter [facility] Comment: Modification of Diet in Renal Disease (MDRD) study formula. Estimated GFR rate interpretative information for both Americans and non- Americans is available on the [facility] Intranet at: [email or web address] Select: Lab Policies and Procedures Select: Reference Ranges - GFR Blood specimen (specimen) 03/10/2009 2:33 PM CDT 03/10/2009 3:22 PM CDT Sujatha Prado MD CHEMISTRY ORDERABLES Edited INTERFACE SYSTEM Refer to clinic/hospital department [facility] CLIA# [id number] [address] [place] [place] [address] * (ABNORMAL) CBC WITH DIFFERENTIAL (03/10/2009 2:33 PM CDT) RBC 4.13 3.90 - 4.90 M/uL [facility] MCHC 32.7 31.5 - 35.5 % [facility] MCV 101.5(H) 82.0 - 99.0 fL [facility] PLATELETS 315 140 - 350 K/uL [facility] HEMOGLOBIN 13.7 11.8 - 14.8 g/dL [facility] RDW 14.3 11.5 - 14.5 % [facility] WBC 7.6 4.0 - 9.8 K/uL [facility] MCH 33.2(H) 27.2 - 32.6 pg [facility] MPV 10.5 9.3 - 12.4 fL [facility] HEMATOCRIT 41.9 35.5 - 44.0 % [facility] RDW-STDEV 52.8(H) 37.1 - 48.7 fL [facility] NEUTROPHILS 67 45 - 70 % [facility] NEUTROPHIL ABSOLUTE 5.13 1.90 - 7.00 K/uL [facility] EOSINOPHILS 2 0 - 7 % [facility] EOSINOPHIL ABSOLUTE 0.17 0.00 - 0.70 K/uL [facility] LYMPHOCYTES 21 16 - 45 % [facility] LYMPHOCYTE ABSOLUTE 1.60 0.70 - 4.50 K/uL [facility] BASOPHILS 1 0 - 2 % [facility] BASOPHILS ABSOLUTE 0.05 0.00 - 0.20 K/uL [facility] MONOCYTES 9 3 - 13 % [facility] MONOCYTE ABSOLUTE 0.66 0.10 - 1.30 K/uL [facility] Blood specimen (specimen) 03/10/2009 2:33 PM CDT 03/10/2009 3:24 PM CDT us Sujatha Prado MD HEMATOLOGY ORDERABLES Edited INTERFACE SYSTEM Refer to clinic/hospital department [facility] CLIA# [id number] [address] [place] [address] documented in this encounter Visit Diagnoses Diagnosis Regional enteritis of unspecified site (CMS/HCC) Regional enteritis of unspecified site documented in this encounter Care Teams Fire Assistant Relationship Specialty Start Date End Date Tessy Francois DO [address] [place] [address] PCP - General 11/17/15 documented as of this encounter
--- OUTSIDE RECORDS SUMMARY | 2025-01-08 12:17 | XMS_ITS | Encounter Summary ---
Author Organization [facility] Address 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 AST 17 12 - 32 U/L [facility] BUN 11 6 - 20 mg/dL [facility] CALCIUM 9.2 8.6 - 10.2 mg/dL [facility] CHLORIDE 102 96 - 108 mmol/L [facility] ALBUMIN 4.1 3.4 - 4.8 g/dL [facility] CREATININE 0.67 0.51 - 0.95 mg/dL [facility] SODIUM 138 135 - 145 mmol/L [facility] ALT 14 0 - 31 U/L [facility] ALKALINE PHOSPHATASE 61 35 - 104 U/L [facility] BILIRUBIN TOTAL 0.4 0.2 - 1.0 mg/dL [facility] CO2 25 22 - 30 mmol/L [facility] TOTAL PROTEIN 7.0 6.3 - 8.6 g/dL [facility] POTASSIUM 3.6 3.5 - 4.9 mmol/L [facility] GFR, >60 >=60 mL/min/1. [address] [facility] GFR >60 >=60 mL/min/1. [address] [facility] Comment: Modification of Diet in Renal Disease (MDRD) study formula. Estimated GFR rate interpretative information for both Americans and non- Americans is available on the [facility] Intranet at: [email or web address] Select: Lab Policies and Procedures Select: Reference Ranges - GFR Blood specimen (specimen) 04/18/2009 1:13 PM CDT 04/18/2009 2:00 PM CDT Sujatha Prado MD CHEMISTRY ORDERABLES Edited INTERFACE SYSTEM Refer to clinic/hospital department [facility] CLIA# [id number] [address] [place] [address] * (ABNORMAL) CBC WITH DIFFERENTIAL (04/18/2009 1:13 PM CDT) MCV 101.5(H) 82.0 - 99.[address] [facility] PLATELETS 319 140 - 350 K/uL [facility] HEMOGLOBIN 13.3 11.8 - 14.8 g/dL [facility] RDW 14.1 11.5 - 14.5 % [facility] WBC 7.2 4.0 - 9.8 K/uL [facility] MCH 33.9(H) 27.2 - 32.[address] [facility] MPV 10.3 9.3 - 12.[address] [facility] HEMATOCRIT 39.8 35.5 - 44.0 % [facility] RDW-STDEV 52.2(H) 37.1 - 48.[address] [facility] RBC 3.92 3.90 - 4.90 M/uL [facility] MCHC 33.4 31.5 - 35.5 % [facility] EOSINOPHILS 1 0 - 7 % [facility] EOSINOPHIL ABSOLUTE 0.10 0.00 - 0.70 K/uL [facility] LYMPHOCYTES 21 16 - 45 % [facility] LYMPHOCYTE ABSOLUTE 1.50 0.70 - 4.50 K/uL [facility] BASOPHILS 0 0 - 2 % [facility] BASOPHILS ABSOLUTE 0.03 0.00 - 0.20 K/uL [facility] MONOCYTES 5 3 - 13 % [facility] MONOCYTE ABSOLUTE 0.37 0.10 - 1.30 K/uL [facility] NEUTROPHILS 72(H) 45 - 70 % [facility] NEUTROPHIL ABSOLUTE 5.15 1.90 - 7.00 K/uL [facility] Blood specimen (specimen) 04/18/2009 1:13 PM CDT 04/18/2009 1:53 PM CDT us Sujatha Prado MD HEMATOLOGY ORDERABLES Edited INTERFACE SYSTEM Refer to clinic/hospital department [facility] CLIA# [id number] [address] [place] [address] documented in this encounter Visit Diagnoses Diagnosis Regional enteritis of unspecified site (CMS/HCC) Regional enteritis of unspecified site documented in this encounter Care Teams Assistant Clinical Director Relationship Specialty Start Date End Date Tessy Francois DO [address] [place] [address] PCP - General 11/17/15 documented as of this encounter
--- OUTSIDE RECORDS SUMMARY | 2025-01-08 12:17 | XMS_ITS | Encounter Summary ---
Author Organization [facility] Address [address] [place] [address] Care Team Providers Care Information Security Manager Name Role Phone Priscila Tessydasha Mchugh Primary Care Provider [phone] [phone] Encounter Details Date Type Department Care Team (Latest Contact Info) Description 05/18/2009 Outpatient Historical HIS [facility] Sujatha Ledesma MD [address] [place] [address] Regional Enteritis of Unspecified Site (CMS/HCC) Social History Tobacco Use Types Packs/Day Years Used Date Smoking Tobacco: Never Assessed Comments Unknown Sex and Gender Information Value Date Recorded Sex Assigned at Not on file Legal Sex Female 5:28 AM GRAINING OPERATOR Gender Identity Not on file Sexual [...] CDT) CALCIUM 9.6 8.6 - 10.2 mg/dL [facility] CHLORIDE 100 96 - 108 mmol/L [facility] ALBUMIN 4.4 3.4 - 4.8 g/dL [facility] CREATININE 0.67 0.51 - 0.95 mg/dL [facility] SODIUM 139 135 - 145 mmol/L [facility] ALT 13 0 - 31 U/L [facility] ALKALINE PHOSPHATASE 48 35 - 104 U/L [facility] BILIRUBIN TOTAL 0.4 0.2 - 1.0 mg/dL [facility] CO2 26 22 - 30 mmol/L [facility] TOTAL PROTEIN 7.2 6.3 - 8.6 g/dL [facility] POTASSIUM 4.0 3.5 - 4.9 mmol/L [facility] GLUCOSE 109(H) 65 - 99 mg/dL [facility] AST 15 12 - 32 U/L [facility] BUN 7 6 - 20 mg/dL [facility] GFR, >60 >=60 mL/min/1. 7 sq meter [facility] GFR >60 >=60 mL/min/1. 7 sq meter [facility] Comment: Modification of Diet in Renal Disease (MDRD) study formula. Estimated GFR rate interpretative information for both Americans and non- Americans is available on the [facility] Intranet at: [email or web address] Select: Lab Policies and Procedures Select: Reference Ranges - GFR 05/18/2009 4:50 PM CDT 05/18/2009 5:14 PM CDT us Suajtha Prado MD CHEMISTRY ORDERABLES Edited INTERFACE SYSTEM Refer to clinic/hospital department [facility] CLIA# [id number] [address] [place] [address] * C-REACTIVE PROTEIN (05/18/2009 4:50 PM CDT) [facility] CRP 0.5 0.0 - 0.8 mg/dL [facility] 05/18/2009 4:50 PM CDT 05/18/2009 5:14 PM CDT us Sujatha Prado MD CHEMISTRY ORDERABLES Final Resu lt INTERFACE SYSTEM Refer to clinic/hospital department [facility] CLIA# [id number] [address] [place] [address] * (ABNORMAL) CBC WITH DIFFERENTIAL (05/18/2009 4:50 PM CDT) [facility] RBC 3.59(L) 3.90 - 4.90 M/uL [facility] MCHC 33.9 31.5 - 35.5 % [facility] MCV 102.8(H) 82.0 - 99.0 fL [facility] PLATELETS 373(H) 140 - 350 K/uL [facility] HEMOGLOBIN 12.5 11.8 - 14.8 g/dL [facility] RDW 14.1 11.5 - 14.5 % [facility] WBC 8.3 4.0 - 9.8 K/uL [facility] MCH 34.8(H) 27.2 - 32.6 pg [facility] MPV 10.1 9.3 - 12.4 fL [facility] HEMATOCRIT 36.9 35.5 - 44.0 % [facility] RDW-STDEV 52.3(H) 37.1 - 48.7 fL [facility] MONOCYTES 7 3 - 13 % [facility] MONOCYTE ABSOLUTE 0.62 0.10 - 1.30 K/uL [facility] NEUTROPHILS 73(H) 45 - 70 % [facility] NEUTROPHIL ABSOLUTE 6.06 1.90 - 7.00 K/uL [facility] EOSINOPHILS 2 0 - 7 % [facility] EOSINOPHIL ABSOLUTE 0.16 0.00 - 0.70 K/uL [facility] LYMPHOCYTES 18 16 - 45 % [facility] LYMPHOCYTE ABSOLUTE 1.46 0.70 - 4.50 K/uL [facility] BASOPHILS 1 0 - 2 % [facility] BASOPHILS ABSOLUTE 0.04 0.00 - 0.20 K/uL [facility] 05/18/2009 4:50 PM CDT 05/18/2009 5:12 PM CDT us Sujatha Prado MD HEMATOLOGY ORDERABLES Edited INTERFACE SYSTEM Refer to clinic/hospital department [facility] CLIA# [id number] [address] [place] [address] documented in this encounter Visit Diagnoses Diagnosis Regional enteritis of unspecified site (CMS/HCC) Regional enteritis of unspecified site documented in this encounter Care Teams Information Security Manager Relationship Specialty Start Date End Date Tessy Francois DO [address] [place] [address] PCP - General 11/17/15 documented as of this encounter
--- OUTSIDE RECORDS SUMMARY | 2025-01-08 12:18 | XMS_ITS | Encounter Summary ---
Author Organization [facility] Address [address] [place] [address] Care Team Providers Care Tax Staff Accountant Name Role Phone FrancoisTessy verduzco Primary Care Provider [phone] Encounter Details Date Type Department Care Team (Latest Contact Info) Description 12/06/2008 Outpatient Historical HIS [facility] Sujatha Ledesma MD [address] [place] [address] Regional Enteritis of Large Intestine (CMS/HCC) Social History Tobacco Use Types Packs/Day Years Used Date Smoking Tobacco: Never Assessed Comments Unknown Sex and Gender Information Value Date Recorded Sex Assigned at Not on file Legal Sex Female 5:28 AM SIDE LASTER TACK Gender Identity Not on file Sexual Orientation Not on file documented as of this encounter Plan of Treatment Not on file documented as of this encounter Procedures Procedure Name Priority Date/Time Associated Diagnosis Comments MISCELLANEOUS LAB TEST Routine 9 10:17 AM SIDE LASTER TACK documented in this encounter Results * MISCELLANEOUS LAB TEST (12/06/2008 10:17 AM SIDE LASTER TACK) TEST NAME TPMT [facility] SPECIMEN TYPE Blood [facility] MISCELLANEOUS LAB TEST Name of Test: TPMT Test Result: TPMT*1/TPMT*1 Alleles present are associated with Normal Enzyme Activity Reference Range: TPMT*1/TPMT*1 Test Performed By: [employer] [place], [place] [facility] Specimen of unknown material (specimen) 12/06/2008 10:17 AM SIDE LASTER TACK 12/06/2008 10:34 AM SIDE LASTER TACK Narrative INTERFACE SYSTEM - 12/09/2008 8:39 AM SIDE LASTER TACK Name of test:tpmt genotype us Sujatha Prado MD CHEMISTRY ORDERABLES Edited INTERFACE SYSTEM Refer to clinic/hospital department [facility] CLIA# [id number] [address] [place] [address] documented in this encounter Visit Diagnoses Diagnosis Regional enteritis of large intestine (CMS/HCC) Regional enteritis of large intestine documented in this encounter Care Teams Tax Staff Accountant Relationship Specialty Start Date End Date Tessy Francois DO [address] [place] [address] PCP - General 11/17/15 documented as of this encounter
--- OUTSIDE RECORDS SUMMARY | 2025-01-08 12:18 | XMS_ITS | Encounter Summary ---
Author Organization [facility] Address [address] [facility] Attn: Epic Prelude ADT [place] [address] Care Team Providers Care Competitive Shopper Name Role Phone Tessy Francois DO Primary Care Provider [phone] [phone] Encounter Details Date Type Department Care Team (Late st Contact Info) Description 08/27/2007 Outpatient Historical Amari Emmanuel MD NO ADDRESS ON FILE Social History Tobacco Use Types Packs/Day Years Used Date Smoking Tobacco: Never Assessed Comments Unknown Sex and Gender Information Value Date Recorded Sex Assigned at Not on file Legal Sex Female 5:28 AM CANDY CUTTER HAND Gender Identity Not on file Sexual Orientation Not on file documented as of this encounter Plan of Treatment Not on file documented as of this encounter Visit Diagnoses Not on filedocumented in this encounter Care Teams Competitive Shopper Relationship Specialty Start Date End Date Tessy Francois DO [address] [place] [address] PCP - General 11/17/15 documented as of this encounter
--- OUTSIDE RECORDS SUMMARY | 2025-01-08 12:18 | XMS_ITS | Patient Health Summary ---
Author Organization [facility] [employer] Address [address] [facility] [place] [address] Care Team Providers Care Latin Dance Instructor Name Role Phone Dillan Woody MD Primary Care Provider [phone] Note from [facility],non-owned Affiliates and Associated Physician Practices is amultiple site organization consisting of ambulatory clinics and hospital sitesin [place], [place], [place] and [place]. This disclosure is being madepursuant to the Care Everywhere program and may not contain all information available regarding this patient. Last updated 18.[facility] Allergies * Ciprofloxacin(Rash at infusion site [...] daily. * Cyanocobalamin (NASCOBAL) 500 MCG/0.1ML SOLN [place] 1 Squirt into the nose every 7 [...] 36.3 C (97.3 F) 01/07/2011 8:00 AM WATERPROOF BAG CUTTING MACHINE OPERATOR Respiratory Rate 18 01/07/2011 8:00 AM WATERPROOF BAG CUTTING MACHINE OPERATOR Oxygen Saturation 100% 01/05/2011 8:00 PM WATERPROOF BAG CUTTING MACHINE OPERATOR Inhaled Oxygen Concentration - - Weight 73.9 [...] ICD9 [facility] ACCOUNT BILL Comment:V72.31 ; Routine plastic surgery coordinator ecological examination Performed by [facility] ACCOUNT BILL [...] Thin Prep Vial Resulting Agency Comment [facility] [address] [id number] Rock Bullock MD LAB - PATHOLOGY/CYTO LOGY ORDERABLES [facility] ACCOUNT BILL * MAMMO DIAG DIRECT DIGITAL IMAGE UNIL LEFT (08/13/2011) Anatomical Region Laterality Modality Left Other Rock Bullock MD MAMMO ORDERABLES * MAMMOGRAPHY ORDER (07/17/2011) Anatomical Region Laterality Modality Other Rock Bullock MD MAMMO ORDERABLES * (ABNORMAL) CBC W AUTO DIFFERENTIAL (01/06/2011 4:05 AM WATERPROOF BAG CUTTING MACHINE OPERATOR) WBC 10.0 4.5 - 11.0 1000/mm3 [facility] RBC 2.74(L) 4.2 - 5.4 10X6 [facility] Hemoglobin 10.1(L) 12.0 - 16.0 gm/dl [facility] Hematocrit 29.9(L) 36.0 - 48.0 % [facility] MCV 109.1(H) 80.0 - 99.0 fl [facility] MCH 36.9(H) 25.0 - 31.0 pg [facility] MCHC 33.8 32.0 - 36.0 gm/dl [facility] RDW 14.1 11.5 - 14.5 % [facility] Platelet Count 205 130.0 - 400.0 1000/mm3 [facility] Granulocytes % 78.9(H) 40.0 - 70.0 % [facility] Lymphocytes % 9.8(L) 22.0 - 40.0 % [facility] Monocytes % 10.8(H) 2.0 - 10.0 % [facility] Eosinophils % 0.2 0.0 - 6.0 % [facility] Basophils % 0.3 0.0 - 3.0 % [facility] Granulocytes Absolute 7.92(H) 1.8 - 7.7 [facility] Lymphocytes Absolute 0.98(L) 1.0 - 5.4 [facility] Monocytes Absolute 1.08 0.1 - 1.1 [facility] Eosinophils Absolute 0.02 0.0 - 0.7 [facility] Basophils Absolute 0.03 0.0 - 0.2 [facility] Comment Manual Diff Not Indicated [facility] BLOOD SPECIMEN / Unknown 01/06/2011 4:05 AM WATERPROOF BAG CUTTING MACHINE OPERATOR 01/06/2011 4:33 AM WATERPROOF BAG CUTTING MACHINE OPERATOR Rock Bullock MD LAB - HEMATOLOGY ORD ERABLES [facility] [address] [place] [address] * XR ABDOMEN 1 VW (01/05/2011 9:58 AM WATERPROOF BAG CUTTING MACHINE OPERATOR) Anatomical Region Laterality Modality Abdomen Radiographic Kavya ging 01/05/2011 10:1 4 AM WATERPROOF BAG CUTTING MACHINE OPERATOR Impressions 01/05/2011 10:14 AM WATERPROOF BAG CUTTING MACHINE OPERATOR Normal KUB Narrative 01/05/2011 10:14 AM WATERPROOF BAG CUTTING MACHINE OPERATOR Abdomen KUB Indication: Evaluate for retained surgical [...] GROSS + MICRO EXAM (01/05/2011 9:06 AM WATERPROOF BAG CUTTING MACHINE OPERATOR) [facility] Surgeon Dr. Bullock [facility] Grossed By ANANTH EVLA [facility] Gross Report [facility] Comment: SURGEON: Dr. Bullock COPY TO: [...] up to about 0.7 cm in diameter. Package Handler sections of the specimen are submitted as follows: A-B. Anterior and posterior cervix. C-D. Anterior and posterior endomyometrium and serosa. E-H. Possible myomas with largest myoma in G and H. I-J. Left and right ovaries and tubes. LW/angie Microscopic Examination [facility] Comment: MICROSCOPIC: The section of the [...] The fallopian tubes are normal. BYRON/yoel Diagnosis [facility] Comment: DIAGNOSIS: 1. Uterus, total abdominal hysterectomy with bilateral salpingo- oophorectomy: Cervix: -- No pathologic diagnosis Endometrium: -- Weakly proliferative pattern Myometrium: -- Leiomyomata -- Adenomyosis Ovary, left: -- Follicular cyst Ovary, right: -- Hemorrhagic corpus luteum Fallopian tubes, bilateral: -- No pathologic diagnosis BYRON/yoel Released by Prema BENITEZ [facility] CPT Code 84605 [facility] HYSTERECTOMY AND BILATERAL SALPINGO-OOPHORECTOM Y SPECIMEN / Unknown 01/05/2011 9:06 AM WATERPROOF BAG CUTTING MACHINE OPERATOR 01/05/2011 9:06 AM WATERPROOF BAG CUTTING MACHINE OPERATOR Rock Bullock MD LAB - PATHOLOGY/CYTO LOGY ORDERABLES Performing Organization Address [facility] Co de Phone Number [facility] [address] [place] [address] * HCG URINE QUALITATIVE - POINT OF CARE (01/05/2011 6:15 AM WATERPROOF BAG CUTTING MACHINE OPERATOR) HCG Qual Urine neg Negative [facility] POCT TESTING QC Verified yes Yes [facility] POC T TESTING Urine specimen (specimen) URINE / Unknown 01/05/2011 6:15 AM WATERPROOF BAG CUTTING MACHINE OPERATOR Paul Stevenson MD LAB - POINT OF CARE ORDERABLES Performing Organization Address [facility] Co de Phone Number [facility] POCT TEST[facility] [address] [place] [address] * HGB HCT PANEL (01/05/2011 6:10 AM WATERPROOF BAG CUTTING MACHINE OPERATOR) Hemoglobin 13.2 12.0 - 16.0 gm/dl [facility] Hematocrit 38.0 36.0 - 48.0 % [facility] BLOOD SPECIMEN / Unknown 01/05/2011 6:10 AM WATERPROOF BAG CUTTING MACHINE OPERATOR 01/05/2011 6:18 AM WATERPROOF BAG CUTTING MACHINE OPERATOR Rock Bullock MD LAB - HEMATOLOGY ORD ERABLES Performing Organization Address [facility] de Phone Number [facility] [address] [place] [address] * US PELVIS WITH TRANSVAG NON OB (12/26/2010 8:19 AM WATERPROOF BAG CUTTING MACHINE OPERATOR) Anatomical Region Laterality Modality Pelvis Ultrasound 12/26/2010 10:1 6 AM WATERPROOF BAG CUTTING MACHINE OPERATOR Impressions 12/26/2010 10:31 AM WATERPROOF BAG CUTTING MACHINE OPERATOR The uterus is grossly enlarged, lobulated in contour, and heterogeneous in echotexture, consistent with the presence of multiple myomata. The ovaries are sonographically unremarkable. Narrative 12/26/2010 10:31 AM WATERPROOF BAG CUTTING MACHINE OPERATOR ULTRASOUND PELVIS - TRANSABDOMINAL/TRANSVAGINAL WITH DOPPLER Indication: [...] unremarkable. Rock Bullock MD ORDERABLES Care Teams Latin Dance Instructor Relationship Specialty Start Date End Date Dillan Woody MD PCP - General Internal Medicine 02/26/12
--- OUTSIDE RECORDS SUMMARY | 2025-01-08 12:18 | XMS_ITS | Encounter Summary ---
Author Organization [facility] Address [address] [place] [address] Care Team Providers Care Metal Moulder'S Assistant Name Role Phone FrancoisTessy verduzco Primary Care Provider [phone] Encounter Details Date Type Department Care Team (Latest Contact Info) Description 10/23/2008 Outpatient Historical HIS [facility] Sujatha Ledesma MD [address] [place] [address] Functional Diarrhea Social History Tobacco Use Types Packs/Day Years Used Date Smoking Tobacco: Never Assessed Comments Unknown Sex and Gender Information Value Date Recorded Sex Assigned at Not on file Legal Sex Female 5:28 AM LAST SCOURER Gender Identity Not on file Sexual Orientation Not on file documented as of this encounter Plan of Treatment Not on file documented as of this encounter Procedures Procedure Name Priority Date/Time Associated Diagnosis Comments C-REACTIVE PROTEIN Routine 10/23/2008 8: 19 AM LAST SCOURER documented in this encounter Results * C-REACTIVE PROTEIN (10/23/2008 8:19 AM LAST SCOURER) CRP 0.2 0.0 - 0.8 mg/dL [facility] Blood specimen (specimen) 10/23/2008 8:19 AM LAST SCOURER 10/23/2008 9:00 AM LAST SCOURER us Sujatha Prado MD CHEMISTRY ORDERABLES Final Resu lt INTERFACE SYSTEM Refer to clinic/hospital department [facility] CLIA# [id number] [address] [place] [address] documented in this encounter Visit Diagnoses Diagnosis Functional diarrhea documented in this encounter Care Teams Metal Moulder'S Assistant Relationship Specialty Start Date End Date Tessy Francois DO [address] [place] [address] PCP - General 11/17/15 documented as of this encounter
--- OUTSIDE RECORDS SUMMARY | 2025-01-08 12:18 | XMS_ITS | Encounter Summary ---
Author Organization [facility] Address [address] [place] [address] Care Team Providers Care Deckhand Crab Boat Name Role Phone Rock Bullock MD Primary Care Provider [phone] Dillan Woody MD Primary Care Provider [phone] Encounter Details Date Type Department Care Team (Late st Contact Info) Description 12/28/2010 [facility] Outpatient Visit EXTERNAL NON-[facility] DEPT Rock Bullock MD [address] [place] [address] Social History Tobacco Use Types [...] on filedocumented in this encounter Care Teams Deckhand Crab Boat Relationship Specialty Start Date End Date Rock Bullock MD [address] [place] [address] PCP - General 12/26/10 02/25/12 Dillan Woody MD [address] [place] [address] PCP - General Internal Medicine 02/26/12 documented as of this encounter
--- OUTSIDE RECORDS SUMMARY | 2025-01-08 12:18 | XMS_ITS | Encounter Summary ---
Author Organization [employer] Address [address] [place] [address] Care Team Providers Care Manager Ed Name Role Phone Tessy Francois DO Primary Care Provider [phone] Encounter Details Date Type Department Care Team (Late st Contact Info) Description 08/29/2007 [facility]patient [facility] [address] [place] [address] Tristan Hyman MD NO ADDRESS ON FILE Social History Tobacco Use Types Packs/Day Years Used Date Smoking Tobacco: Never Assessed Comments Unknown Sex and Gender Information Value Date Recorded Sex Assigned at Not on file Legal Sex Female 5:28 AM PEDIATRIC CARE COORDINATOR Gender Identity Not on file Sexual Orientation Not on file documented as of this encounter Plan of Treatment Not on file documented as of this encounter Visit Diagnoses Not on filedocumented in this encounter Care Teams Manager Ed Relationship Specialty Start Date End Date Tessy Francois DO [address] [place] [address] PCP - General 11/17/15 documented as of this encounter
--- OUTSIDE RECORDS SUMMARY | 2025-01-08 12:18 | XMS_ITS | Clinical Summary ---
Author Organization [facility] [employer] Address [address] [place] [address] Care Team Providers Care Drupal Architect Name Role Phone Dillan Woody MD Primary Care Provider [phone] Source Comments [facility],non-owned Affiliates and Associated Physician Practices is amultiple site organization consisting of ambulatory clinics and hospital sitesin [place], [place], [place] and [place]. This disclosure is being madepursuant to the Care Everywhere program and may not contain all information available regarding this patient. Last updated 18.[facility] Allergies Active Allergy Reactions Criticality Noted Date [...] daily. Active Cyanocobalamin (NASCOBAL) 500 MCG/0.1ML SOLN [place] 1 Squirt into the nose every 7 [...] 36.3 C (97.3 F) 01/07/2011 8:00 AM FORM [address]TER [address] FORMS Respiratory Rate 18 01/07/2011 8:[address] FORMS Oxygen Saturation 100% 01/05/2011 8:[address] FORMS Inhaled Oxygen Concentration - - Weight 73.9 [...] ICD9 [facility] ACCOUNT BILL Comment:V72.31 ; Routine wood piler ecological examination Performed by [facility] ACCOUNT BILL [...] Thin Prep Vial Resulting Agency Comment [facility] [address] [id number] Rock Bullock MD LAB - PATHOLOGY/CYTO LOGY [...] 10:33 PM 01/04/2011 8:00 PM Care Teams Drupal Architect Relationship Specialty Start Date End Date Dillan Woody MD PCP - General Internal Medicine 02/26/12
--- OUTSIDE RECORDS SUMMARY | 2025-01-08 12:18 | XMS_ITS | Encounter Summary ---
Author Organization [employer] Address [address] [place] [address] Care Team Providers Care Immigration Law Specialist Name Role Phone Tessy Francois DO Primary Care Provider [phone] Encounter Details Date Type Department Care Team (Late st Contact Info) Description 10/07/2008 Outpatient Historical [facility] Madelyn Rae MD [address] [facility] [address] [place] [address] Regional Enteritis of Unspecified Site (CMS/HCC) Social History Tobacco Use Types Packs/Day Years Used Date Smoking Tobacco: Never Assessed Comments Unknown Sex and Gender Information Value Date Recorded Sex Assigned at Not on file Legal Sex Female 5:28 AM SENIOR NETWORK ADMINISTRATOR Gender Identity Not on file Sexual Orientation Not on file documented as of this encounter Plan of Treatment Not on file documented as of this encounter Procedures Procedure Name Priority Date/Time Associated Diagnosis Comments PATHOLOGY Routine 10/07/2008 3:22 PM SENIOR NETWORK ADMINISTRATOR STOOL CULTURE (SILVANO,SHIG,CAMPY,ECO 157) Routine 10/07/2008 3:17 PM SENIOR NETWORK ADMINISTRATOR C. DIFFICILE DETECTION Routine 10/07/2008 3:17 PM SENIOR NETWORK ADMINISTRATOR OVA AND PARASITE SCREEN Routine 10/07/2008 3:17 PM SENIOR NETWORK ADMINISTRATOR POC , URINE Routine 10/07/2008 1:40 PM SENIOR NETWORK ADMINISTRATOR documented in this encounter Results * PATHOLOGY (10/07/2008 3:22 PM SENIOR NETWORK ADMINISTRATOR) FINAL REPORT [facility] [address] [place], [place] [address] Patient: ZEINA COLE : 1960 Procedure Date: 10/07/2008 Accession Date: 10/07/2008 Case No: [id number] Ordering Dr: MADELYN RAE Case types AW, BW, FW, NW and SH are performed by [facility], [place], [place] SURGICAL PATHOLOGY & NON-GYNECOLOGIC CYTOPATHOLOGY REPORT [...] 04:36 pm Microscopic: The slides are labeled [id number], Zeina Cole. Sections of the left colon [...] 09:19 am INTERFACE SYSTEM 10/07/2008 3:22 PM SENIOR NETWORK ADMINISTRATOR us Madelyn Rae MD PATHOLOGY/CYTOLOGY ORDERABLE S Final Result INTERFACE SYSTEM Refer to clinic/hospital department * OVA AND PARASITE SCREEN (10/07/2008 3:17 PM SENIOR NETWORK ADMINISTRATOR) PRELIMINARY REPORT Pending [facility] FINAL REPORT Concentration : No ova or parasites seen. Trichrome: No ova or parasites seen. [facility] 10/07/2008 3:17 PM SENIOR NETWORK ADMINISTRATOR 10/07/2008 4:43 PM SENIOR NETWORK ADMINISTRATOR Narrative INTERFACE SYSTEM - 10/14/2008 10:48 AM SENIOR NETWORK ADMINISTRATOR fax to dr rae Performed by [facility], [address] [place] [id number] Performed by [facility] [address] Madelyn Rae MD MICROBIOLOGY - GENERAL ORDER DIVINE Final Result Performing Organization Address [facility] Phone Number INTERFACE SYSTEM Refer to clinic/hospital department [facility] CLIA# [id number] [address] [place] [address] * STOOL CULTURE (SILVANO,SHIG,CAMPY,[id number]) (10/07/2008 3:17 PM SENIOR NETWORK ADMINISTRATOR) PRELIMINARY REPORT No Salmonella isolated. No Shigella isolated. No Escherichia coli serogroup O157:H7 isolated. [facility] FINAL REPORT No Salmonella isolated. No Shigella isolated. No Escherichia coli serogroup O157:H7 isolated. No Camplylobacter isolated. [facility] 10/07/2008 3:17 PM SENIOR NETWORK ADMINISTRATOR 10/07/2008 4:43 PM SENIOR NETWORK ADMINISTRATOR Narrative INTERFACE SYSTEM - 10/10/2008 7:51 AM SENIOR NETWORK ADMINISTRATOR fax to dr rae Madelyn Rae MD MICROBIOLOGY - GENERAL ORDER DIVINE Final Result Performing Organization Address [facility] Phone Number INTERFACE SYSTEM Refer to clinic/hospital department [facility] CLIA# [id number] [address] [place] [address] * CLOSTRIDIUM DIFFICILE TOXIN (10/07/2008 3:17 PM SENIOR NETWORK ADMINISTRATOR) FINAL REPORT NO Clostridium difficile Toxin A or B detected by EIA. A negative result does not rule out C. difficile associated diarrhea or colitis. [facility] Stool specimen (specimen) 10/07/2008 3:17 PM SENIOR NETWORK ADMINISTRATOR 10/07/2008 4:43 PM SENIOR NETWORK ADMINISTRATOR Narrative INTERFACE SYSTEM - 10/08/2008 3:11 PM SENIOR NETWORK ADMINISTRATOR fax to dr rae Madelyn Rae MD MICROBIOLOGY - GENERAL ORDER DIVINE Final Result Performing Organization Address [facility] de Phone Number INTERFACE SYSTEM Refer to clinic/hospital department [facility] CLIA# [id number] [address] [place] [address] * POC , URINE (10/07/2008 1:40 PM SENIOR NETWORK ADMINISTRATOR) , URINE POC Negative Negative [facility] Urine specimen (specimen) 10/07/2008 1:40 PM SENIOR NETWORK ADMINISTRATOR 10/07/2008 1:40 PM SENIOR NETWORK ADMINISTRATOR Madelyn Rae MD POINT OF CARE TESTING Final Result Performing Organization Address [facility] de Phone Number INTERFACE SYSTEM Refer to clinic/hospital department [facility] CLIA# [id number] [address] [place] [address] documented in this encounter Visit Diagnoses Diagnosis Regional enteritis of unspecified site (CMS/HCC) Regional enteritis of unspecified site documented in this encounter Care Teams Immigration Law Specialist Relationship Specialty Start Date End Date Tessy Francois DO [address] [place] [address] PCP - General 11/17/15 documented as of this encounter
--- OUTSIDE RECORDS SUMMARY | 2025-01-08 12:18 | XMS_ITS | Referral Summary ---
Author Organization [facility] Address [address] [place] [address] Care Team Providers Care Mortuary Operations Manager Name Role Phone Dillan Woody MD Primary Care Provider [phone] Source Comments [facility],non-owned Affiliates and Associated Physician Practices is amultiple site organization consisting of ambulatory clinics and hospital sitesin [place], [place] and [place]. This disclosure is being madepursuant to the Care Everywhere program and may not contain all information available regarding this patient. Last updated 18.[facility] Allergies Active Allergy Reactions Criticality Noted Date [...] daily. Active Cyanocobalamin (NASCOBAL) 500 MCG/0.1ML SOLN [place] 1 Squirt into the nose every 7 [...] 36.3 C (97.3 F) 01/07/2011 8:00 AM [facility] Respiratory Rate 18 01/07/2011 8:00 AM TRIM SAWYER Oxygen Saturation 100% 01/05/2011 8:00 PM TR[facility]ER Inhaled Oxygen Concentration - - Weight 73.9 [...] ICD9 [facility] ACCOUNT BILL Comment:V72.31 ; Routine ob/gyn physician ecological examination Performed by [facility] ACCOUNT BILL [...] CYTYC Thin Prep Vial Resulting Agency Comment [facility] [id number] Rock Bullock MD LAB - PATHOLOGY/CYTO LOGY [...] 10:33 PM 01/04/2011 8:00 PM Care Teams Mortuary Operations Manager Relationship Specialty Start Date End Date Dillan Woody MD PCP - General Internal Medicine 02/26/12
--- OUTSIDE RECORDS SUMMARY | 2025-01-08 12:18 | XMS_ITS | Encounter Summary ---
Author Organization [facility] Address [address] [place] [address] Care Team Providers Care Tobacco Sizer Name Role Phone PriscilaTessy Primary Care Provider [phone] Encounter Details Date Type Department Care Team (Late Contact Info) Description 10/23/2008 Outpatient Historical [facility] Sarabia, MD Mago Social History Tobacco Use Types Packs/Day Years Used Date Smoking Tobacco: Never Assessed Comments Unknown Sex and Gender Information Value Date Recorded Sex Assigned at Not on file Legal Sex Female 5:28 AM GIN FEEDER Gender Identity Not on file Sexual Orientation Not on file documented as of this encounter Plan of Treatment Not on file documented as of this encounter Procedures Procedure Name Priority Date/Time Associated Diagnosis Comments GLUCOSE TOLERANCE, 2 HR Routine 10/23/2008 10:30 AM GIN FEEDER GLUCOSE FARHAT NON-GEST FOR DIABETES 2 HR Routine 10/23/2008 10:30 AM GIN FEEDER GLUCOSE TOLERANCE, FASTING Routine 10/23/2008 8:18 AM GIN FEEDER BASIC METABOLIC PANEL Routine 10/23/2008 8:18 AM GIN FEEDER documented in this encounter Results * GLUCOSE FARHAT NON-GEST FOR DIABETES 2 HR (10/23/2008 10:30 AM GIN FEEDER) COMMENT See Additional Orderables [facility] Blood specimen (specimen) 10/23/2008 10:30 AM GIN FEEDER 10/23/2008 10:32 AM GIN FEEDER Mago Sarabia MD CHEMISTRY ORDERABLES Final R esult Performing Organization Address [facility] de Phone Number INTERFACE SYSTEM Refer to clinic/hospital department [facility] CLIA# [id number] [address] [place] [address] * GLUCOSE TOLERANCE, 2 HR (10/23/2008 10:30 AM GIN FEEDER) GLUCOSE, 2HR 135 <=139 mg/dL [facility] Blood specimen (specimen) 10/23/2008 10:30 AM GIN FEEDER 10/23/2008 10:32 AM GIN FEEDER Mago Sarabia MD CHEMISTRY ORDERABLES Final R [facility] Performing Organization Address [facility] Phone Number INTERFACE SYSTEM Refer to clinic/hospital department [facility] CLIA# [id number] [address] [place] [address] [address] * BASIC METABOLIC PANEL (10/23/2008 8:18 AM GIN FEEDER) CHLORIDE 103 96 - 108 mmol/L [facility] GLUCOSE 86 65 - 99 mg/dL [facility] SODIUM 141 135 - 145 mmol/L [facility] CALCIUM 8.6 8.6 - 10.2 mg/dL [facility] CO2 28 22 - 30 mmol/L [facility] CREATININE 0.80 0.51 - 0.95 mg/dL [facility] POTASSIUM 3.9 3.5 - 4.9 mmol/L [facility] BUN 11 6 - 20 mg/dL [facility] GFR, >60 >=60 mL/min/1.7 sq meter [facility] GFR >60 >=60 mL/min/1.7 sq meter [facility] Comment: ansiModification of Diet in Renal Disease (MDRD) study formula. Estimated GFR rate interpretative information for both Americans and non- Americans is available on the [facility] Intranet at: [email or web address] Select: Lab Policies and Procedures Select: Reference Ranges - GFR Blood specimen (specimen) 10/23/2008 8:18 AM GIN FEEDER 10/23/2008 9:00 AM GIN FEEDER Mago Sarabia MD CHEMISTRY ORDERABLES Edited Performing Organization Address [facility] de Phone Number INTERFACE SYSTEM Refer to clinic/hospital department [facility] CLIA# [id number] [address] [place] [address] * GLUCOSE TOLERANCE, FASTING (10/23/2008 8:18 AM GIN FEEDER) GTT INTERP, NON-GESTATION AL Based on 75 g dose: Type 1 or 2 Diabetes Mellitus Criteria: Fasting (Baseline): > = 126 mg/dL or 2 hour specimen: > = 200 mg/dL Impaired Glucose Metabolism Criteria: Fasting (Baseline): 100 - 125 mg/dL 2 hour specimen: 140 - 199 mg/dL [facility] GLUCOSE FASTING 86 <=99 mg/dL [facility] Blood specimen (specimen) 10/23/2008 8:18 AM GIN FEEDER 10/23/2008 9:00 AM GIN FEEDER us Mago Sarabia MD CHEMISTRY ORDERABLES Final R esult Performing Organization Address [facility] de Phone Number INTERFACE SYSTEM Refer to clinic/hospital department [facility] CLIA# [id number] [address] [place] [address] documented in this encounter Visit Diagnoses Not on filedocumented in this encounter Care Teams Tobacco Sizer Relationship Specialty Start Date End Date Tessy Francois DO [address] [place] [address] PCP - General 11/17/15 documented as of this encounter
--- OUTSIDE RECORDS SUMMARY | 2025-01-08 12:18 | XMS_ITS | Encounter Summary ---
Author Organization [employer] Address [address] [place] [address] Care Team Providers Care Business Education Teacher Name Role Phone Priscila Tessy Britte Primary Care Provider [phone] Encounter Details Date Type Department Care Team (Late st Contact Info) Description 09/24/2008 Outpatient Historical [facility] Nadia Sarabia MD Social History Tobacco Use Types Packs/Day Years Used Date Smoking Tobacco: Never Assessed Comments Unknown Sex and Gender Information Value Date Recorded Sex Assigned at Not on file Legal Sex Female 5:28 AM NEUROLOGY MANAGER Gender Identity Not on file Sexual [...] AM CDT Narrative 09/28/2008 11:12 AM CDT [facility] [address] [place], [place] [address] Admit Date: 09/24/2008 ZEINA COLE Sex: F Admit Prov: NADIA SARABIA Date: 1960 Primary Care Prov: NADIA SARABIA CMRN: [id number] Room: [facility] SSN: [id number] IMAGING SERVICES Ordering Prov: N/A Accession Number: [id number] Interpretation SMALL BOWEL SERIES, 09/28/2008 Clinical History: Crohn's disease, right lower quadrant abdominal pain, possible jejunal intussusception seen on recent abdominal CT. Findings: A preliminary abdominal acid plant helper radiograph is not remarkable. Following oral administration [...] Procedure Note Tristan Cates MD - 09/28/2008 [facility] [address] [place], [place] [address] Admit Date: 09/24/2008 COLE ZEINA Carolina Sex: F Admit Prov: NADIA SARABIA Date: 1960 Primary Care Prov: NADIA SARABIA CMRN: [id number] Room: [facility] SSN: [id number] IMAGING SERVICES Ordering Prov: N/A Interpretation SMALL BOWEL SERIES, 09/28/2008 Clinical History: Crohn's disease, right lower quadrant abdominalpain, possible jejunal intussusception seen on recent abdominal CT. Findings: A preliminary abdominal acid plant helper radiograph is notremarkable. Following oral administration of [...] ALKALINE PHOSPHATASE 66 35 - 104 U/L [facility] ALT 14 0 - 31 U/L [facility] CHLORIDE 98 96 - 108 mmol/L [facility] AST 15 12 - 32 U/L [facility] BUN 7 6 - 20 mg/dL [facility] TOTAL PROTEIN 6.5 6.3 - 8.6 g/dL [facility] BILIRUBIN TOTAL 0.3 0.2 - 1.0 mg/dL [facility] CREATININE 0.76 0.51 - 0.95 mg/dL [facility] CO2 27 22 - 30 mmol/L [facility] ALBUMIN 3.7 3.4 - 4.8 g/dL [facility] SODIUM 132(L) 135 - 145 mmol/L [facility] CALCIUM 8.8 8.6 - 10.2 mg/dL [facility] GLUCOSE 123(H) 65 - 99 mg/dL [facility] POTASSIUM 3.2(L) 3.5 - 4.9 mmol/L [facility] GFR, [...] [facility] Intranet at: [email or web address] Select: Lab Policies and Procedures Select: Reference Ranges - GFR Blood specimen (specimen) 09/24/2008 2:27 PM CDT 09/24/2008 2:33 PM CDT Nadia Sarabia MD CHEMISTRY ORDERABLES Edited INTERFACE SYSTEM Refer to clinic/hospital department [facility] CLIA# [id number] [address] [facility] [address] [place] [address] * (ABNORMAL) CBC WITH DIFFERENTIAL (09/24/2008 2:27 PM CDT) WBC 8.0 4.0 - 9.8 K/uL [facility] MCH 32.1 27.2 - 32.6 pg [facility] MPV 10.2 9.3 - 12.4 fL [facility] HEMATOCRIT 38.8 35.5 - 44.0 % [facility] RDW-STDEV 43.3 37.1 - 48.7 fL [facility] RBC 4.02 3.90 - 4.90 M/uL [facility] MCHC 33.2 31.5 - 35.5 % [facility] MCV 96.5 82.0 - 99.0 fL [facility] PLATELETS 312 140 - 350 K/uL [facility] HEMOGLOBIN 12.9 11.8 - 14.8 g/dL [facility] RDW 12.3 11.5 - 14.5 % [facility] MONOCYTES 9 3 - 13 % [facility] MONOCYTE ABSOLUTE 0.75 0.10 - 1.30 K/uL [facility] NEUTROPHILS 71(H) 45 - 70 % [facility] NEUTROPHIL ABSOLUTE 5.70 1.90 - 7.00 K/uL [facility] EOSINOPHILS 3 0 - 7 % [facility] EOSINOPHIL ABSOLUTE 0.20 0.00 - 0.70 K/uL [facility] LYMPHOCYTES 16 16 - 45 % [facility] LYMPHOCYTE ABSOLUTE 1.30 0.70 - 4.50 K/uL [facility] BASOPHILS 1 0 - 2 % [facility] BASOPHILS ABSOLUTE 0.05 0.00 - 0.20 K/uL [facility] Blood specimen (specimen) 09/24/2008 2:27 PM CDT 09/24/2008 2:33 PM CDT us Nadia Sarabia MD HEMATOLOGY ORDERABLES Edited INTERFACE SYSTEM Refer to clinic/hospital department [facility] CLIA# [id number] [address] [facility] [address] [place] [address] [address] * CT ABDOMEN PELVIS W CONTRAST (09/24/2008 2:12 PM CDT) Anatomical Region Laterality Modality Abdomen Other 09/24/2008 2:12 PM CDT Narrative 09/24/2008 4:46 PM CDT [facility] [address] [place], [place] [address] Admit Date: 09/24/2008 ZEINA COLE Sex: F Admit Prov: NADIA SARABIA Date: 1960 Primary Care Prov: NADIA SARABIA CMRN: [id number] Room: [facility] SSN: [id number] IMAGING SERVICES Ordering Prov: N/A Accession Number: [id number] Interpretation CT SCAN OF THE ABDOMEN AND [...] Procedure Note Olimpia Cavanaugh MD - 09/24/2008 [facility] [address] [place], [place] [address] Admit Date: 09/24/2008 ZEINA COLE Sex: F Admit Prov: NADIA SARABIA Date: 1960 Primary Care Prov: NADIA SARABIA CMRN: [id number] Room: [facility] SSN: [id number] IMAGING SERVICES Ordering Prov: N/A Interpretation CT [...] CREATININE POC 0.8 0.6 - 1.3 mg/dL [facility] GFR, >60 >=60 mL/min/1.7 sq meter [facility] GFR >60 >=60 mL/min/1.7 sq meter [facility] Capillary blood specimen (specimen) 09/24/2008 2:05 PM CDT 09/24/2008 2:05 PM CDT us Nadia Sarabia MD POINT OF CARE TESTING Edited INTERFACE SYSTEM Refer to clinic/hospital department [facility] CLIA# [id number] [address] [place] [address] documented in this encounter Visit Diagnoses Not on filedocumented in this encounter Care Teams Business Education Teacher Relationship Specialty Start Date End Date Tessy Francois DO [address] [place] [address] PCP - General 11/17/15 documented as of this encounter
--- OUTSIDE RECORDS SUMMARY | 2025-01-08 12:18 | XMS_ITS | Encounter Summary ---
Author Organization [employer] Address [address] [place] [address] Care Team Providers Care Resident Engineer Name Role Phone Tessy Francois DO Primary Care Provider [phone] Encounter Details Date Type Department Care Team (Late st Contact Info) Description 08/28/2007 Outpatient Historical [facility] [address] [place] [address] Tristan Lance MD NO ADDRESS ON FILE Social History Tobacco Use Types Packs/Day Years Used Date Smoking Tobacco: Never Assessed Comments Unknown Sex and Gender Information Value Date Recorded Sex Assigned at Not on file Legal Sex Female 5:28 AM RN TEAM LEADER Gender Identity Not on file Sexual Orientation Not on file documented as of this encounter Plan of Treatment Not on file documented as of this encounter Visit Diagnoses Not on filedocumented in this encounter Care Teams Resident Engineer Relationship Specialty Start Date End Date Tessy Francois DO [address] [place] [address] PCP - General 11/17/15 documented as of this encounter
--- OUTSIDE RECORDS SUMMARY | 2025-01-08 12:18 | XMS_ITS | Encounter Summary ---
Author Organization [facility] Address [address] [place] [address] Care Team Providers Care Data Control Assistant Name Role Phone Tessy Francois DO Primary Care Provider [phone] Encounter Details Date Type Department Care Team (Late st Contact Info) Description 08/28/2007 Outpatient Historical [facility] Blood Flow [address] [place] [address] Riaz Alvarado MD NO ADDRESS ON FILE Social History Tobacco Use Types Packs/Day Years Used Date Smoking Tobacco: Never Assessed Comments Unknown Sex and Gender Information Value Date Recorded Sex Assigned at Not on file Legal Sex Female 5:28 AM TELEPHONE LINES REPAIRER Gender Identity Not on file Sexual Orientation Not on file documented as of this encounter Plan of Treatment Not on file documented as of this encounter Visit Diagnoses Not on filedocumented in this encounter Care Teams Data Control Assistant Relationship Specialty Start Date End Date Tessy Francois DO [address] [place] [address] PCP - General 11/17/15 documented as of this encounter
--- OUTSIDE RECORDS SUMMARY | 2025-01-08 12:18 | XMS_ITS | Encounter Summary ---
Author Organization [employer] Address [address] [place] [address] Care Team Providers Care Mold Presser Name Role Phone Priscila Tessy Britte Primary Care Provider [phone] [phone] Encounter Details Date Type Department Care Team [...] on file Legal Sex Female 5:28 AM MINER PICK Gender Identity Not on file Sexual Orientation Not on file documented as of this encounter Plan of Treatment Not on file documented as of this encounter Procedures Procedure Name Priority Date/Time Associated Diagnosis Comments CT HEAD WO CONTRAST Routine 12/29/2008 4 :15 PM MINER PICK CBC WITH DIFFERENTIAL Stat 12/29/2008 2:48 PM MINER PICK C-REACTIVE PROTEIN Stat 12/29/2008 2: 48 PM MINER PICK COMPREHENSIVE METABOLIC PANEL Stat 12/29/2008 2:48 PM MINER PICK documented in this encounter Results * CT HEAD WO CONTRAST (12/29/2008 4:15 PM MINER PICK) Anatomical Region Laterality Modality Head Other 12/29/2008 4:15 PM MINER PICK Narrative 12/29/2008 4:28 PM [facility] [address] [place], [place] [address] Admit Date: 12/29/2008 ZEINA COLE Sex: F Admit Prov: ER, AUTHORIZED P Date: 1960 Primary Care Prov: NADIA PEÑALOZA CMRN: [id number] [facility] [id number] IMAGING SERVICES Ordering Prov: N/A Accession Number: [id number] Interpretation CT head without contrast 12/29/2008.. History: [...] 12/29/2008 16:27 Procedure Note Meg Cheung 12/29/2008 [facility] [address] [place], [place] [address] Admit Date: 12/29/2008 ZEINA COLE Sex: F Admit Prov: ER, AUTHORIZED P Date: 1960 Primary Care Prov: NADIA PEÑALOZA CMRN: [id number] [facility] [id number] IMAGING SERVICES Ordering Prov: N/A Interpretation CT [...] Result * C-REACTIVE PROTEIN (12/29/2008 2:48 PM MINER PICK) CRP 0.3 0.0 - 0.8 mg/dL [facility] Blood specimen (specimen) 12/29/2008 2:48 PM MINER PICK 12/29/2008 3:01 PM MINER PICK Manjit Mendiola MD CHEMISTRY ORDERABLES Final R esult INTERFACE SYSTEM Refer to clinic/hospital department [facility] CLIA# [id number] [address] [place] [address] * (ABNORMAL) COMPREHENSIVE METABOLIC PANEL (12/29/2008 2:48 PM MINER PICK) CREATININE 0.67 0.51 - 0.95 mg/dL [facility] Intranet at: [email or web address] Select: Lab Policies and Procedures Select: Reference Ranges - GFR Blood specimen (specimen) 12/29/2008 2:48 PM MINER PICK 12/29/2008 3:01 PM MINER PICK us Manjit Mendiola MD CHEMISTRY ORDERABLES Edited INTERFACE SYSTEM Refer to clinic/hospital department [facility] CLIA# [id number] [address] [place], [place] [address] * (ABNORMAL) CBC WITH DIFFERENTIAL (12/29/2008 2:48 PM MINER PICK) RDW-STDEV 43.8 37.1 - 48.7 fL [facility] [...] LAB NEUTROPHILS 78(H) 45 - 70 % [facility] NEUTROPHIL ABSOLUTE 8.58(H) 1.90 - 7.00 K/uL [facility] EOSINOPHILS 1 0 - 7 % [facility] EOSINOPHIL ABSOLUTE 0.05 0.00 - 0.70 K/uL [facility] LYMPHOCYTES 17 16 - 45 % [facility] LYMPHOCYTE ABSOLUTE 1.89 0.70 - 4.50 K/uL [facility] BASOPHILS 0 0 - 2 % [facility] BASOPHILS ABSOLUTE 0.03 0.00 - 0.20 K/uL [facility] Blood specimen (specimen) 12/29/2008 2:48 PM MINER PICK 12/29/2008 3:01 PM MINER PICK us Manjit Mendiola MD HEMATOLOGY ORDERABLES Edited INTERFACE SYSTEM Refer to clinic/hospital department [facility] CLIA# [id number] [address] [place] [address] documented in this encounter Visit Diagnoses Not on filedocumented in this encounter Care Teams Mold Presser Relationship Specialty Start Date End Date Tessy Francois DO [address] [place] [address] PCP - General 11/17/15 documented as of this encounter
--- OUTSIDE RECORDS SUMMARY | 2025-01-08 12:18 | XMS_ITS | Encounter Summary ---
Author Organization [employer] Address [address] [place] [address] Care Team Providers Care Self Pay Collector Name Role Phone Tessy Francois DO Primary Care Provider [phone] Encounter Details Date Type Department Care Team (Late st Contact Info) Description 08/28/2007 Outpatient Historical [facility] [place] [address] [place] [address] Other Chest Pain (Primary Dx) Social History Tobacco Use Types Packs/Day Years Used Date Smoking Tobacco: Never Assessed Comments Unknown Sex and Gender Information Value Date Recorded Sex Assigned at Not on file Legal Sex Female 5:28 AM 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 WORKER Gender Identity Not on file Sexual [...] INTERFACE SYSTEM 08/29/2007 6:00 AM CDT us Vijaexpresscoinkumari Ying CHEMISTRY ORDERABLES Edited Performing Organization Address [facility] de Phone Number INTERFACE SYSTEM Refer [...] classifications for lipids are available on the [facility] Intranet at: [email or web address] Select: Lab Policies and Procedures,Current Select: Lipid Panel Interpretation 08/29/2007 6:00 AM CDT us VijaAlterGeoi Ying CHEMISTRY ORDERABLES Edited Performing Organization Address [facility] de Phone Number INTERFACE SYSTEM Refer to clinic/hospital department * PHOSPHORUS (08/29/2007 6:00 AM CDT) PHOSPHORUS 4.0 2.5 - 4.5 mg/dL INTERFACE SYSTEM 08/29/2007 6:00 AM CDT us VijayakCrowderyi Ying CHEMISTRY ORDERABLES Edited Performing Organization Address City/[facility] Co de Phone Number INTERFACE SYSTEM Refer to clinic/hospital department * MAGNESIUM LEVEL (08/29/2007 6:00 AM CDT) MAGNESIUM 2.2 1.5 - 2.5 mg/dL INTERFACE SYSTEM 08/29/2007 6:00 AM CDT us VijayakCrowderyi Ying CHEMISTRY ORDERABLES Edited Performing Organization Address City/State/[facility] de Phone Number INTERFACE SYSTEM Refer to clinic/hospital department * TROPONIN (W/REFLEX CKMB/CK) (08/28/2007 11:35 PM CDT) TROPONIN T 0.01 <=0.03 ng/mL INTERFACE SYSTEM TROPONIN T INTERP Negative INTERFACE SYSTEM 08/28/2007 11:3 5 PM CDT Viangel Ying CHEMISTRY ORDERABLES Edited Performing Organization Address [facility] de Phone Number INTERFACE SYSTEM Refer [...] MD URINE ORDERABLES Edited Performing Organization Address [facility] Phone Number INTERFACE SYSTEM Refer to clinic/hospital department * TROPONIN (W/REFLEX CKMB/CK) (08/28/2007 5:13 PM CDT) TROPONIN T <0.01 <=0.03 ng/mL INTERFACE SYSTEM TROPONIN T INTERP Negative INTERFACE SYSTEM 08/28/2007 5:13 PM CDT Haley Ying CHEMISTRY ORDERABLES Edited Performing Organization Address [facility] de Phone Number INTERFACE SYSTEM Refer to clinic/hospital department * TROPONIN (W/REFLEX CKMB/CK) (08/28/2007 2:52 PM CDT) TROPONIN T <0.01 <=0.03 ng/mL INTERFACE SYSTEM TROPONIN T INTERP Negative INTERFACE SYSTEM 08/28/2007 2:52 PM CDT Ajsánchez Ying CHEMISTRY ORDERABLES Edited Performing Organization Address City/[facility] Co de Phone Number INTERFACE [...] MD HEMATOLOGY ORDERABLES Edited Performing Organization Address [facility] de Phone Number INTERFACE SYSTEM Refer to clinic/hospital department * (ABNORMAL) CBC WITH DIFFERENTIAL (08/27/2007 5:15 PM CDT) Pathologist [facility] WBC 9.1 4.0 - 9.8 K/uL INTERFACE [...] [facility] Intranet at: [email or web address] Select: Lab Policies and Procedures [...] Primary documented in this encounter Care Teams Self Pay Collector Relationship Specialty Start Date End Date Tessy Francois DO [address] [place] [address] PCP - General 11/17/15 documented as of this encounter
--- OUTSIDE RECORDS SUMMARY | 2025-01-08 12:18 | XMS_ITS | Encounter Summary ---
Author Organization [facility] Address 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 DIFFICILE DETECTION Routine 10/26/2008 7:52 AM ASBESTOS HAZARD ABATEMENT WORKER FECAL LEUKOCYTES STAIN Routine 10/26/2008 7:52 AM ASBESTOS HAZARD ABATEMENT WORKER OVA AND PARASITE SCREEN Routine 10/26/2008 7:52 AM ASBESTOS HAZARD ABATEMENT WORKER documented in this encounter Results * CLOSTRIDIUM DIFFICILE TOXIN (10/26/2008 7:52 AM ASBESTOS HAZARD ABATEMENT WORKER) FINAL REPORT NO Clostridium difficile Toxin A or B detected by EIA. A negative result does not rule out C. difficile associated diarrhea or colitis. [facility] Stool specimen (specimen) 10/26/2008 7:52 AM ASBESTOS HAZARD ABATEMENT WORKER 10/26/2008 8:13 AM ASBESTOS HAZARD ABATEMENT WORKER us Sujatha Prado MD MICROBIOLOGY - GENERAL ORDERABL ES Final Result Performing Organization Address [facility] de Phone Number INTERFACE SYSTEM Refer to clinic/hospital department [facility] CLIA# [id number] [address] [place] [address] * OVA AND PARASITE SCREEN (10/26/2008 7:52 AM ASBESTOS HAZARD ABATEMENT WORKER) PRELIMINARY REPORT Pending [facility] FINAL REPORT Concentration : No ova or parasites seen. Trichrome: No ova or parasites seen. [facility] Stool specimen (specimen) 10/26/2008 7:52 AM ASBESTOS HAZARD ABATEMENT WORKER 10/26/2008 8:15 AM ASBESTOS HAZARD ABATEMENT WORKER Narrative INTERFACE SYSTEM - 11/02/2008 7:09 AM ASBESTOS HAZARD ABATEMENT WORKER Performed by [employer] [address] Performed by [employer] [address] us Sujatha Prado MD MICROBIOLOGY - GENERAL ORDERABL ES Final Result Performing Organization Address [facility] Phone Number INTERFACE SYSTEM Refer to clinic/hospital department [facility] CLIA# [id number] [address] [place] [address] * FECAL LEUKOCYTES STAIN (10/26/2008 7:52 AM ASBESTOS HAZARD ABATEMENT WORKER) FINAL REPORT Few WBC's seen [facility] Stool specimen (specimen) 10/26/2008 7:52 AM ASBESTOS HAZARD ABATEMENT WORKER 10/26/2008 8:13 AM ASBESTOS HAZARD ABATEMENT WORKER us Sujatha Prado MD MICROBIOLOGY - GENERAL ORDERABL ES Final Result Performing Organization Address City/[facility] de Phone Number INTERFACE SYSTEM Refer to clinic/hospital department [facility] CLIA# [id number] [address] [place] [address] * STOOL CULTURE (SILVANO,SHIG,CAMPY,ZYA350) (10/26/2008 7:52 AM ASBESTOS HAZARD ABATEMENT WORKER) PRELIMINARY REPORT No Salmonella isolated. No Shigella isolated. No Escherichia coli serogroup O157:H7 isolated. [facility] FINAL REPORT No Salmonella isolated. No Shigella isolated. No Escherichia coli serogroup O157:H7 isolated. No Camplylobacter isolated. [facility] Stool specimen (specimen) 10/26/2008 7:52 AM ASBESTOS HAZARD ABATEMENT WORKER 10/26/2008 8:17 AM ASBESTOS HAZARD ABATEMENT WORKER us Sujatha Prado MD MICROBIOLOGY - GENERAL ORDERABL ES Final Result INTERFACE SYSTEM Refer to clinic/hospital department [facility] CLIA# [id number] [address] [place] [address] documented in this encounter Visit Diagnoses Not on filedocumented in this encounter Care Teams Resident Programs Assistant Relationship Specialty Start Date End Date Tessy Francois DO [address] [place] [address] PCP - General 11/17/15 documented as of this encounter
[2025-01-08 12:23] LABS: D Dimer 0.27 ug/mL (<0.48)
--- NOTE | 2025-01-08 13:43 | ECG_ITS ---
Test Date: 2025-01-08 14:00:37 Measurements Intervals [place] Rate: 57 P: 27 LA: 147 QRS: 86 QRSD: 88 T: 74 QT: 463 QTc: 451 Interpretive Statements SINUS BRADYCARDIA CONSIDER INFERIOR INFARCT, AGE INDETERMINATE ST DEVIATION AND MODERATE T-WAVE ABNORMALITY, CONSIDER ANTERIOR ISCHEMIA ABNORMAL ECG Compared to ECG 01/08/2025 10:52:12 HEART RATE HAS DECREASED Electronically Signed On 01-08-2025 14:04:41 HAND III CUTTER by Dell Dunham D.O.
[2025-01-08 14:19] LABS: Troponin I < 0.012 ng/mL (0.000-0.034)
--- NOTE | 2025-01-08 14:46 | PM.IMHP ---
H&P: HPI History of Present Illness Date/Time: 01/08/25 14:46 Chief Complaint: Headache, chest discomfort, abnormal EKG Narrative: This is a 64 year old female patient seen at Primary Care Provider's office today for headache ongoing for the past 2 weeks. She reports the pain comes and goes in intensity. She was seen in ER a few days ago and treated for headache. It returned so patient went to see PCP. She reported that she had chest discomfort going to left side of neck more like shortness of breath than actual pain that has been intermittent and associated with activity like going up stairs that makes it worse. PCP did EKG and found some ST/T wave abnormalities in V3-V4 concerning for ischemia. Patient was sent to ER from the office for further evaluation. In ER patient received IV migraine cocktail with relief of headache. She had normal CXR and normal Head CT as well. Labs show normal troponin x3 with elevated ProBNP of 806. Patient reports she was in [facility] for 3 years and had a full cardiac workup while there and she had negative workup in [phone] at [facility]. Cardiology was consulted from ER and will see patient tomorrow. Heart score of 5 given patient's age family history, personal medical history and EKG findings. Review of Systems Review of Systems: All systems reviewed & are unremarkable except as noted in HPI and below PMFSH Past Medical History Medical History Hx of adenomatous colonic polyps GERD (gastroesophageal reflux disease) Nausea and vomiting Diarrhea Need for hepatitis B screening test High risk medication use Crohn disease Hypothyroidism (acquired) Eustachian tube dysfunction Surgical History Surgical History History of sinus surgery May 2024 H/O breast augmentation S/P JACK (total abdominal hysterectomy) Family History Family History Mother Diabetes mellitus Depression Social History Social History Social History: Caffeine-tea occasionally Smoking packs per day: 1 Smoking cigarettes per day: 20.0 Years smoked: 30 Smoking pack-years: 30.00 Smoking status: Former smoker Second hand tobacco smoke exposure: No Alcohol intake: current Drinks per week: 14 Substance use: current Substance use type: marijuana Last use: 05/02/24 Do You Feel Safe in your Home?: Yes Lack of Transportation: No Lack of Food: Never True Current Housing: I Have Housing Concerned About Future Housing: No Difficulty Paying Gas/Electric Bills: No Difficulty Paying for Meds: No Currently Unemployed: YES Education: Associate Degree Difficulty w/ Childcare or Family Care: No Living arrangements: other Additional living arrangements comments: with sp Occupation/Education: retired 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 Gender identity (if verbalized by the patient): Female Sexual Orientation (if Verbalized by the Patient): Straight or Heterosexual Spiritual care concerns: No Meds Home Medications and Allergies Home Medications ?Medication ?Instructions ?Recorded ?Confirmed ?Type spironolactone 25 mg tablet See Rx Instructions .Route 03/23/24 01/08/25 Rx .COMPLEX #180 tabs esomeprazole magnesium 40 mg 40 mg PO DAILY 3 months #90 caps 06/29/24 01/08/25 Rx capsule,delayed release (Nexium) propranolol 10 mg tablet 10 mg PO TID PRN anxiety 09/03/24 01/08/25 History fluoxetine 40 mg capsule 40 mg PO DAILY #90 caps 11/05/24 01/08/25 Rx levothyroxine 50 mcg tablet 50 mcg PO DAILY #90 tabs 12/17/24 01/08/25 Rx Allergy injection QMWF 01/08/25 History Allergies Allergy/AdvReac Type Severity Reaction Status Date / Time egg Allergy Severe Nausea and Verified 01/08/25 16:25 Vomiting lecithin, soy Allergy Unknown Diarrhea Verified 01/08/25 16:25 cottage cheese Allergy Mild Diarrhea Uncoded 01/08/25 16:25 Vital Signs Vital Signs - 24 hr 01/08/25 10:57 01/08/25 11:12 01/08/25 13:07 Temperature 37.0 C 36.8 C Pulse Rate 69 62 Respiratory Rate 14 16 Blood Pressure 159/87 H 164/85 H Pulse Oximetry 98 98 97 Oxygen Delivery Room Air Room Air Exam Narrative: GENERAL: Well-appearing, well-nourished, and in no acute distress. HEAD: Normocephalic, atraumatic. EYES: PERRLA and EOMI. ENT: Nares clear, no rhinorrhea or epistaxis. Mucous membranes moist. NECK: Supple. CHEST: Clear to auscultation. No respiratory distress. HEART: Regular rate and rhythm. No murmur heard. Normal peripheral pulses. ABDOMEN: Soft, nontender, nondistended, normal active bowel sounds. EXTREMITIES: Normal range of motion. No edema. SKIN: Warm, dry, no rash. NEURO: No focal deficits. Alert and oriented x3. H&P: Results Labs Labs: Short CBC 01/08/25 Range/Units 10:55 WBC 6.8 (4.5-10.0) K/mm3 Hgb 15.6 H (12.0-15.0) g/dL Hct 46.4 (37.0-47.0) % Plt Count 344 (150-375) k/mm3 BMP 01/08/25 10:55 Sodium 138 Potassium 3.7 Chloride 99 Carbon Dioxide 27 BUN 7 Creatinine 0.73 Glucose 130 H Calcium 9.6 Cardiac Enzymes 01/08/25 01/08/25 Range/Units 10:55 13:52 Troponin I < 0.012 < 0.012 (0.000-0.034) ng/mL Liver Function 01/08/25 Range/Units 10:55 Total Bilirubin 0.9 (0.2-1.3) mg/dL AST 28 (14-36) U/L ALT 23 (6-35) U/L Alkaline Phosphatase 125 (38-126) U/L Albumin 4.4 (3.5-5.1) g/dL Pulse Oximetry SpO2 results: 97-98% on Room air Attestation: I personally reviewed and interpreted this pulse oximetry as follows: Interpretation: no need for supplemental oxygenation at this time ECG Attestation: I personally reviewed and interpreted this ECG as follows: ECG completion date: 01/08/25 ECG completion time: 14:00 Prior ECG tracings: available for review Interpretation: Sinus bradycardia rate of 57 CT interval 147 QRS duration 88 QTC [address] deviation and T-wave abnormality noted in lead 1, aVL V3 V4 and V5 as well as some very minor ST elevation in lead 3 and AVF. Patient is chest pain-free, not a STEMI Imaging Chest x-ray: Radiologist's impression: EXAMINATION: XR chest 2V DATE: 01/08/2025 11:40 INDICATION: Chest tightness TECHNIQUE: PA and lateral views of the chest were obtained. COMPARISON: Chest radiograph dated 01/05/2024 FINDINGS: The lungs are clear with no focal airspace opacities, pulmonary edema, pleural effusion or pneumothorax. The cardiomediastinal silhouette is normal. Chronic mild anterior wedging of a few lower thoracic vertebral bodies. IMPRESSION: 1. No acute cardiopulmonary disease. Reviewed, dictated and finalized at location B. CY DIRECTOR CT scan - head: Radiologist's impression: EXAMINATION: CT brain wo con DATE: 01/08/2025 11:35 INDICATION: Headache TECHNIQUE: Computed tomography (CT) of the head was performed without intravenous contrast. Sagittal and coronal reconstructions were performed. The mA was adjusted according to patient size. Iterative reconstruction technique was employed. The dose-length product was 681.00 mGy-cm. COMPARISON: None FINDINGS: No acute intracranial hemorrhage, acute infarction or abnormal extra axial fluid collection. Symmetric prominence of the sulci consistent with mild age-appropriate diffuse cerebral volume loss. Ventricles are normal and symmetric. No mass/mass effect. The orbits, paranasal sinuses and mastoid air cells are normal. IMPRESSION: 1. Normal aging brain. No acute intracranial process. Reviewed, dictated and finalized at location B. CY DIRECTOR Assessment and Plan Assessment and plan (1) Migraine headache: Qualifiers: Intractability: not intractable Migraine type: unspecified Status migrainosus presence: without status migrainosus Qualified Code(s): G43.909 - Migraine, unspecified, not intractable, without status migrainosus Code(s): G43.909 - Migraine, unspecified, not intractable, without status migrainosus Status: Acute Assessment and Plan: -Chief complaint today and when she was seen in ER earlier in the week -Ongoing headache for 2 weeks, waxes and wanes intensity -Headache relieved in ER with IV medications (2) Chest pain: Qualifiers: Chest pain type: unspecified Qualified Code(s): R07.9 - Chest pain, unspecified Code(s): R07.9 - Chest pain, unspecified Status: Acute Assessment and Plan: -Chest pain described as intermittent shortness of breath and pressure that radiates to left neck and clavicle area over the past several weeks -Worse with activity such as climbing stairs -Not present today -Abnormal EKG noted at PCP office so patient sent to ER (V3 and V4 ST and T wave abnormalities) -Abnormalities seemingly worse on EKG here vs at clinic and now involve Lead 1, aVL, V3, V4, V5 and Leads 3 and aVF -Aspirin 81 mg daily unless Cardiology stops this, received 324 mg in ER today (3) Abnormal EKG: Code(s): R94.31 - Abnormal electrocardiogram [ECG] [EKG] Status: Acute Assessment and Plan: -Abnormal EKG in clinic setting, sent to ER -Cardiology stated patient should be admit rather than outpatient referral -Ordered Echocardiogram and NM stress test -Stress not able to get patient today, will not be available until Saturday -Patient had NM tests before, unable to complete treadmilll stress (4) Hypothyroidism (acquired): Code(s): E03.9 - Hypothyroidism, unspecified Status: Acute Assessment and Plan: -Continue home medication -Check TSH with reflex T4 (5) Crohn disease: Qualifiers: Digestive disease complication type: without complication Gastrointestinal tract location: unspecified location Qualified Code(s): K50.90 - Crohn's disease, unspecified, without complications Code(s): K50.90 - Crohn's disease, unspecified, without complications Status: Chronic Assessment and Plan: -Noted history, no current flare Plan Admit to OBS status on Telemetry Echocardiogram and NM Stress test ordered Heart Score of 5, Cardiology consulted Patient may be able to DC home tomorrow and have outpatient testing Will obtain serial EKGs for Cardiology to review Quality VTE Prophylaxis VTE prophylaxis: pharmacologic ordered Hospitalist MIPS Advance Care Plan I have confirmed that the patient's Advanced Care Plan is present, code status is documented, or surrogate decision maker is listed in patient medical record.: Yes Medication Reconciliation I have utilized all available resources to obtain, update and review the patients current medications (includes all prescriptions, OTC, herbals, cannabis, and nutritional supplements).: Yes
--- OUTSIDE RECORDS SUMMARY | 2025-01-08 14:46 | XMS_ITS | Encounter Summary ---
Author Organization [employer] Address [address] [place] [address] Care Team Providers Care Retail Parts Professional Name Role Phone Tessy Francois DO Primary Care Provider [phone] [phone] Encounter Details Date Type Department Care Team (Late st Contact Info) Description 08/28/2007 Outpatient Historical [facility] [place] [address] [place] [address] Other Chest Pain (Primary Dx) Social History Tobacco Use Types Packs/Day Years Used Date Smoking Tobacco: Never Assessed Comments Unknown Sex and Gender Information Value Date Recorded Sex Assigned at Not on file 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 Intranet at: [email or web address] Select: Lab Policies and Procedures,Current Select: Lipid Panel Interpretation 08/29/2007 6:00 AM CDT us VijaWealthForgei Ying CHEMISTRY ORDERABLES Edited Performing Organization Address [facility] de Phone Number INTERFACE SYSTEM Refer to clinic/hospital department * PHOSPHORUS (08/29/2007 6:00 AM CDT) PHOSPHORUS 4.0 2.5 - 4.5 mg/dL INTERFACE SYSTEM 08/29/2007 6:00 AM CDT us VijayakGeolab-ITi Ying CHEMISTRY ORDERABLES Edited Performing Organization Address City/[facility] Co de Phone Number INTERFACE SYSTEM Refer to clinic/hospital department * MAGNESIUM LEVEL (08/29/2007 6:00 AM CDT) MAGNESIUM 2.2 1.5 - 2.5 mg/dL INTERFACE SYSTEM 08/29/2007 6:00 AM CDT us VijayakGeolab-ITi Ying CHEMISTRY ORDERABLES Edited Performing Organization Address City/State/[facility] de Phone Number INTERFACE SYSTEM Refer to clinic/hospital department * TROPONIN (W/REFLEX CKMB/CK) (08/28/2007 11:35 PM CDT) TROPONIN T 0.01 <=0.03 ng/mL INTERFACE SYSTEM TROPONIN T INTERP Negative INTERFACE SYSTEM 08/28/2007 11:3 5 PM CDT Viangel Ying CHEMISTRY ORDERABLES Edited Performing Organization Address [facility] de Phone Number INTERFACE SYSTEM Refer to [...] MD URINE ORDERABLES Edited Performing Organization Address [facility] Phone Number INTERFACE SYSTEM Refer to clinic/hospital department * TROPONIN (W/REFLEX CKMB/CK) (08/28/2007 5:13 PM CDT) TROPONIN T <0.01 <=0.03 ng/mL INTERFACE SYSTEM TROPONIN T INTERP Negative INTERFACE SYSTEM 08/28/2007 5:13 PM CDT Haley Ying CHEMISTRY ORDERABLES Edited Performing Organization Address [facility] de Phone Number INTERFACE SYSTEM Refer to clinic/hospital department * TROPONIN (W/REFLEX CKMB/CK) (08/28/2007 2:52 PM CDT) TROPONIN T <0.01 <=0.03 ng/mL INTERFACE SYSTEM TROPONIN T INTERP Negative INTERFACE SYSTEM 08/28/2007 2:52 PM CDT Ajsánchez Ying CHEMISTRY ORDERABLES Edited Performing Organization Address City/[facility] Co de Phone Number [...] MD HEMATOLOGY ORDERABLES Edited Performing Organization Address [facility] de Phone Number INTERFACE SYSTEM Refer to clinic/hospital department * (ABNORMAL) CBC WITH DIFFERENTIAL (08/27/2007 5:15 PM CDT) Pathologist [facility] WBC 9.1 4.0 - 9.8 K/uL INTERFACE [...] available on the [facility] Intranet at: [email or web address] Select: [...] Primary documented in this encounter Care Teams Retail Parts Professional Relationship Specialty Start Date End Date Tessy Francois DO [address] [place] [address] PCP - General 11/17/15 documented as of this encounter
--- OUTSIDE RECORDS SUMMARY | 2025-01-08 14:46 | XMS_ITS | Encounter Summary ---
Author Organization [facility] Address 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 Gender Identity Not on file Sexual Orientation [...] GLUCOSE 151(H) 65 - 99 mg/dL [facility] AST 17 12 - 32 U/L [facility] BUN 11 6 - 20 mg/dL [facility] CALCIUM 9.2 8.6 - 10.2 mg/dL [facility] CHLORIDE 102 96 - 108 mmol/L [facility] ALBUMIN 4.1 3.4 - 4.8 g/dL [facility] CREATININE 0.67 0.51 - 0.95 mg/dL [facility] SODIUM 138 135 - 145 mmol/L [facility] ALT 14 0 - 31 U/L [facility] ALKALINE PHOSPHATASE 61 35 - 104 U/L [facility] BILIRUBIN TOTAL 0.4 0.2 - 1.0 mg/dL [facility] CO2 25 22 - 30 mmol/L [facility] TOTAL PROTEIN 7.0 6.3 - 8.6 g/dL [facility] POTASSIUM 3.6 3.5 - 4.9 mmol/L [facility] GFR, >60 >=60 mL/min/1. 7 sq meter [facility] GFR >60 >=60 mL/min/1. 7 sq meter [facility] Comment: Modification of Diet in Renal Disease (MDRD) study formula. Estimated GFR rate interpretative information for both Americans and non- Americans is available on the [facility] Intranet at: [email or web address] Select: Lab Policies and Procedures Select: Reference Ranges - GFR Blood specimen (specimen) 04/18/2009 1:13 PM CDT 04/18/2009 2:00 PM CDT Sujatha Prado MD CHEMISTRY ORDERABLES Edited INTERFACE SYSTEM Refer to clinic/hospital department [facility] CLIA# [id number] [address] [place] [address] * (ABNORMAL) CBC WITH DIFFERENTIAL (04/18/2009 1:13 PM CDT) MCV 101.5(H) 82.0 - 99.0 fL [facility] PLATELETS 319 140 - 350 K/uL [facility] HEMOGLOBIN 13.3 11.8 - 14.8 g/dL [facility] RDW 14.1 11.5 - 14.5 % [facility] WBC 7.2 4.0 - 9.8 K/uL [facility] MCH 33.9(H) 27.2 - 32.6 pg [facility] MPV 10.3 9.3 - 12.4 fL [facility] HEMATOCRIT 39.8 35.5 - 44.0 % [facility] RDW-STDEV 52.2(H) 37.1 - 48.7 fL [facility] RBC 3.92 3.90 - 4.90 M/uL [facility] MCHC 33.4 31.5 - 35.5 % [facility] EOSINOPHILS 1 0 - 7 % [facility] EOSINOPHIL ABSOLUTE 0.10 0.00 - 0.70 K/uL [facility] LYMPHOCYTES 21 16 - 45 % [facility] LYMPHOCYTE ABSOLUTE 1.50 0.70 - 4.50 K/uL [facility] BASOPHILS 0 0 - 2 % [facility] BASOPHILS ABSOLUTE 0.03 0.00 - 0.20 K/uL [facility] MONOCYTES 5 3 - 13 % [facility] MONOCYTE ABSOLUTE 0.37 0.10 - 1.30 K/uL [facility] NEUTROPHILS 72(H) 45 - 70 % [facility] NEUTROPHIL ABSOLUTE 5.15 1.90 - 7.00 K/uL [facility] Blood specimen (specimen) 04/18/2009 1:13 PM CDT 04/18/2009 1:53 PM CDT us Sujatha Prado MD HEMATOLOGY ORDERABLES Edited INTERFACE SYSTEM Refer to clinic/hospital department [facility] CLIA# [id number] [address] [place] [address] documented in this encounter Visit Diagnoses Diagnosis Regional enteritis of unspecified site (CMS/HCC) Regional enteritis of unspecified site documented in this encounter Care Teams Boots And Shoes Supervisor Relationship Specialty Start Date End Date Tessy Francois DO [address] [place] [address] PCP - General 11/17/15 documented as of this encounter
--- OUTSIDE RECORDS SUMMARY | 2025-01-08 14:46 | XMS_ITS | Encounter Summary ---
Author Organization [facility] Address [address] [place] [address] Care Team Providers Care Furnace Cleaner Name Role Phone Priscila Tessydasha Mchugh Primary Care Provider [phone] [phone] Encounter Details Date Type Department Care Team (Latest Contact Info) Description 03/10/2009 Outpatient Historical HIS [facility] Sujatha Ledesma MD [address] [place] [address] Regional Enteritis of Unspecified Site (CMS/HCC) Social History Tobacco Use Types Packs/Day Years Used Date Smoking Tobacco: Never Assessed Comments Unknown Sex and Gender Information Value Date Recorded Sex Assigned at Not on file 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 Gender Identity Not on file Sexual Orientation [...] CDT) CALCIUM 9.5 8.6 - 10.2 mg/dL [facility] CHLORIDE 101 96 - 108 mmol/L [facility] ALBUMIN 4.5 3.4 - 4.8 g/dL [facility] CREATININE 0.77 0.51 - 0.95 mg/dL [facility] SODIUM 138 135 - 145 mmol/L [facility] ALT 46(H) 0 - 31 U/L [facility] ALKALINE PHOSPHATASE 54 35 - 104 U/L [facility] BILIRUBIN TOTAL 0.3 0.2 - 1.0 mg/dL [facility] CO2 28 22 - 30 mmol/L [facility] TOTAL PROTEIN 7.2 6.3 - 8.6 g/dL [facility] POTASSIUM 3.9 3.5 - 4.9 mmol/L [facility] GLUCOSE 96 65 - 99 mg/dL [facility] AST 33(H) 12 - 32 U/L [facility] BUN 7 6 - 20 mg/dL [facility] GFR, >60 >=60 mL/min/1.7 sq meter [facility] GFR >60 >=60 mL/min/1.7 sq meter [facility] Comment: Modification of Diet in Renal Disease (MDRD) study formula. Estimated GFR rate interpretative information for both Americans and non- Americans is available on the [facility] Intranet at: [email or web address] Select: Lab Policies and Procedures Select: Reference Ranges - GFR Blood specimen (specimen) 03/10/2009 2:33 PM CDT 03/10/2009 3:22 PM CDT Sujatha Prado MD CHEMISTRY ORDERABLES Edited INTERFACE SYSTEM Refer to clinic/hospital department [facility] CLIA# [id number] [address] [place] [address] * (ABNORMAL) CBC WITH DIFFERENTIAL (03/10/2009 2:33 PM CDT) RBC 4.13 3.90 - 4.90 M/uL [facility] MCHC 32.7 31.5 - 35.5 % [facility] MCV 101.5(H) 82.0 - 99.0 fL [facility] PLATELETS 315 140 - 350 K/uL [facility] HEMOGLOBIN 13.7 11.8 - 14.8 g/dL [facility] RDW 14.3 11.5 - 14.5 % [facility] WBC 7.6 4.0 - 9.8 K/uL [facility] MCH 33.2(H) 27.2 - 32.6 pg [facility] MPV 10.5 9.3 - 12.4 fL [facility] HEMATOCRIT 41.9 35.5 - 44.0 % [facility] RDW-STDEV 52.8(H) 37.1 - 48.7 fL [facility] NEUTROPHILS 67 45 - 70 % [facility] NEUTROPHIL ABSOLUTE 5.13 1.90 - 7.00 K/uL [facility] EOSINOPHILS 2 0 - 7 % [facility] EOSINOPHIL ABSOLUTE 0.17 0.00 - 0.70 K/uL [facility] LYMPHOCYTES 21 16 - 45 % [facility] LYMPHOCYTE ABSOLUTE 1.60 0.70 - 4.50 K/uL [facility] BASOPHILS 1 0 - 2 % [facility] BASOPHILS ABSOLUTE 0.05 0.00 - 0.20 K/uL [facility] MONOCYTES 9 3 - 13 % [facility] MONOCYTE ABSOLUTE 0.66 0.10 - 1.30 K/uL [facility] Blood specimen (specimen) 03/10/2009 2:33 PM CDT 03/10/2009 3:24 PM CDT us Sujatha Prado MD HEMATOLOGY ORDERABLES Edited INTERFACE SYSTEM Refer to clinic/hospital department [facility] CLIA# [id number] [address] [place] [address] documented in this encounter Visit Diagnoses Diagnosis Regional enteritis of unspecified site (CMS/HCC) Regional enteritis of unspecified site documented in this encounter Care Teams Furnace Cleaner Relationship Specialty Start Date End Date Tessy Francois DO [address] [place] [address] PCP - General 11/17/15 documented as of this encounter
--- OUTSIDE RECORDS SUMMARY | 2025-01-08 14:46 | XMS_ITS | Encounter Summary ---
Author Organization [facility] Address 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 400 Result Assessment: Higher Risk of Leucopenia. Higher Likelihood of Response. Metabolite: 6-MMPN Result (Units: pmole/8x10^8 RBC): 2516 Reference Range: <5700 Result Assessment: Lower Risk of Hepatotoxicity. Test Performed By: [employer] [facility] [employer], [place], [place] [facility] Specimen of unknown material (specimen) 07/13/2009 12:26 PM CDT 07/13/2009 12:36 PM CDT us Sujatha Prado MD CHEMISTRY ORDERABLES Edited Performing Organization Address [facility]/ZIP Co de Phone Number [facility] CLIA# [id number] [address] [place] [address] * VITAMIN B12 (07/13/2009 12:26 PM CDT) Pathologist [facility] VITAMIN B12 303 211 - 946 pg/mL [facility] Comment: It has been reported that between 5 to 10% of patients with values between 200 and 400 pg/mL may experience neuropsychiatric and hematologic abnormalities due to occult B12 deficiency. Less than 1% of patients with values above 400 pg/mL will have symptoms. Blood specimen (specimen) 07/13/2009 12:26 PM CDT 07/13/2009 12:36 PM CDT us Sujatha Prado MD CHEMISTRY ORDERABLES Edited [facility] CLIA# [id number] [address] [place] [address] * TSH (07/13/2009 12:26 PM CDT) [facility] TSH 0.98 0.27 - 4.20 uU/mL [facility] Blood specimen (specimen) 07/13/2009 12:26 PM CDT 07/13/2009 12:36 PM CDT Sujatha Prado MD CHEMISTRY ORDERABLES Final Resu lt [facility] CLIA# [id number] [address] [address] * (ABNORMAL) CBC WITH DIFFERENTIAL (07/13/2009 12:26 PM CDT) [facility] RDW 16.4(H) 11.5 - 14.5 % [facility] WBC 8.8 4.0 - 9.8 K/uL [facility] MCH 36.7(H) 27.2 - 32.6 pg [facility] MPV 10.1 9.3 - 12.4 fL [facility] HEMATOCRIT 39.9 35.5 - 44.0 % [facility] RDW-STDEV 63.0(H) 37.1 - 48.7 fL [facility] RBC 3.73(L) 3.90 - 4.90 M/uL [facility] MCHC 34.3 31.5 - 35.5 % [facility] MCV 107.0(H) 82.0 - 99.0 fL [facility] PLATELETS 380(H) 140 - 350 K/uL [facility] HEMOGLOBIN 13.7 11.8 - 14.8 g/dL [facility] LYMPHOCYTES 7(L) 16 - 45 % [facility] LYMPHOCYTE ABSOLUTE 0.60(L) 0.70 - 4.50 K/uL [facility] BASOPHILS 0 0 - 2 % [facility] BASOPHILS ABSOLUTE 0.02 0.00 - 0.20 K/uL [facility] MONOCYTES 2(L) 3 - 13 % [facility] MONOCYTE ABSOLUTE 0.18 0.10 - 1.30 K/uL [facility] NEUTROPHILS 91(H) 45 - 70 % [facility] NEUTROPHIL ABSOLUTE 7.94(H) 1.90 - 7.00 K/uL [facility] EOSINOPHILS 0 0 - 7 % [facility] EOSINOPHIL ABSOLUTE 0.01 0.00 - 0.70 K/uL [facility] Blood specimen (specimen) 07/13/2009 12:26 PM CDT 07/13/2009 12:36 PM CDT Sujatha Prado MD HEMATOLOGY ORDERABLES Edited [facility] CLIA# [id number] [address] [place] [address] documented in this encounter Visit Diagnoses Diagnosis Regional enteritis of unspecified site (CMS/HCC) Regional enteritis of unspecified site documented in this encounter Care Teams Locomotive Pipe Fitter Relationship Specialty Start Date End Date Tessy Francois DO [address] [place] [address] PCP - General 11/17/15 documented as of this encounter
--- OUTSIDE RECORDS SUMMARY | 2025-01-08 14:46 | XMS_ITS | Encounter Summary ---
Author Organization [employer] Address [address] [place] [address] Care Team Providers Care Psychiatrist Name Role Phone Tessy Francois DO Primary Care Provider [phone] Encounter Details Date Type Department Care Team (Late st Contact Info) Description 08/29/2007 Outpatient Historical [facility] Support Serv. (Adt Cardiology-[facility]) [address] 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
--- OUTSIDE RECORDS SUMMARY | 2025-01-08 14:46 | XMS_ITS | Encounter Summary ---
Author Organization [facility] Address [address] [place] [address] Care Team Providers Care Supervisor Parking Lot Name Role Phone Tessy Francois DO Primary Care Provider [phone] [phone] Encounter Details Date Type Department Care Team (Late st Contact Info) Description 08/28/2007 Outpatient Historical [facility] Supp [facility] Blood Flow [address] [place] [address] Riaz Alvarado MD NO ADDRESS ON FILE Social History Tobacco Use Types Packs/Day Years Used Date Smoking Tobacco: Never Assessed Comments Unknown Sex and Gender Information Value Date Recorded Sex Assigned at Not on file Legal Sex Female 5:28 AM MINER Gender Identity Not on file Sexual Orientation Not on file documented as of this encounter Plan of Treatment Not on file documented as of this encounter Visit Diagnoses Not on filedocumented in this encounter Care Teams Supervisor Parking Lot Relationship Specialty Start Date End Date Tessy Francois DO [address] [place] [address] PCP - General 11/17/15 documented as of this encounter
--- OUTSIDE RECORDS SUMMARY | 2025-01-08 14:46 | XMS_ITS | Patient Health Summary ---
Author Organization [facility] Address [address] [place] [address] Care Team Providers Care Network Services Project Manager Name Role Phone Dillan Woody MD Primary Care Provider [phone] [facility],non-owned Affiliates and Associated Physician Practices is amultiple site organization consisting of ambulatory clinics and hospital sitesin [place], [place], [place] and [place]. This disclosure is being madepursuant to the Care Everywhere program and may not contain all information available regarding this patient. Last updated 18.[facility] Allergies * Ciprofloxacin(Rash at infusion site immediately [...] daily. * Cyanocobalamin (NASCOBAL) 500 MCG/0.1ML SOLN [place] 1 Squirt into the nose every 7 [...] 36.3 C (97.3 F) 01/07/2011 8:00 AM JANITORIAL MAINTENANCE WORKER Respiratory Rate 18 01/07/2011 8:00 AM JANITORIAL MAINTENANCE WORKER Oxygen Saturation 100% 01/05/2011 8:00 PM JANITORIAL MAINTENANCE WORKER Inhaled Oxygen Concentration - - Weight [...] ICD9 [facility] ACCOUNT BILL Comment:V72.31 ; Routine cook barbecue ecological examination Performed by [facility] ACCOUNT BILL [...] Thin Prep Vial Resulting Agency Comment [facility] [address] [id number] Rock Bullock MD LAB - PATHOLOGY/CYTO LOGY ORDERABLES [facility] ACCOUNT BILL * MAMMO DIAG DIRECT DIGITAL IMAGE UNIL LEFT (08/13/2011) Anatomical Region Laterality Modality Left Other Rock Bullock MD MAMMO ORDERABLES * MAMMOGRAPHY ORDER (07/17/2011) Anatomical Region Laterality Modality Other Rock Bullock MD MAMMO ORDERABLES * (ABNORMAL) CBC W AUTO DIFFERENTIAL (01/06/2011 4:05 AM JANITORIAL MAINTENANCE WORKER) WBC 10.0 4.5 - 11.0 1000/mm3 [facility] RBC 2.74(L) 4.2 - 5.4 10X6 [facility] Hemoglobin 10.1(L) 12.0 - 16.0 gm/dl [facility] Hematocrit 29.9(L) 36.0 - 48.0 % [facility] MCV 109.1(H) 80.0 - 99.0 fl [facility] MCH 36.9(H) 25.0 - 31.0 pg [facility] MCHC 33.8 32.0 - 36.0 gm/dl [facility] RDW 14.1 11.5 - 14.5 % [facility] Platelet Count 205 130.0 - 400.0 1000/mm3 [facility] Granulocytes % 78.9(H) 40.0 - 70.0 % [facility] Lymphocytes % 9.8(L) 22.0 - 40.0 % [facility] Monocytes % 10.8(H) 2.0 - 10.0 % [facility] Eosinophils % 0.2 0.0 - 6.0 % [facility] Basophils % 0.3 0.0 - 3.0 % [facility] Granulocytes Absolute 7.92(H) 1.8 - 7.7 [facility] Lymphocytes Absolute 0.98(L) 1.0 - 5.4 [facility] Monocytes Absolute 1.08 0.1 - 1.1 [facility] Eosinophils Absolute 0.02 0.0 - 0.7 [facility] Basophils Absolute 0.03 0.0 - 0.2 [facility] Comment Manual Diff Not Indicated [facility] BLOOD SPECIMEN / Unknown 01/06/2011 4:05 AM JANITORIAL MAINTENANCE WORKER 01/06/2011 4:33 AM JANITORIAL MAINTENANCE WORKER Rock Bullock MD LAB - HEMATOLOGY ORD ERABLES [facility] [address] [place] [address] * XR ABDOMEN 1 VW (01/05/2011 9:58 AM JANITORIAL MAINTENANCE WORKER) Anatomical Region Laterality Modality Abdomen Radiographic Kavya ging 01/05/2011 10:1 4 AM JANITORIAL MAINTENANCE WORKER Impressions 01/05/2011 10:14 AM JANITORIAL MAINTENANCE WORKER Normal KUB Narrative 01/05/2011 10:14 AM JANITORIAL MAINTENANCE WORKER Abdomen KUB Indication: Evaluate for retained surgical [...] GROSS + MICRO EXAM (01/05/2011 9:06 AM JANITORIAL MAINTENANCE WORKER) [facility] Surgeon Dr. Bullock [facility] Grossed By [facility] Gross Report [facility] Comment: SURGEON: Dr. Bullock COPY TO: [...] up to about 0.7 cm in diameter. Bill Hiker sections of the specimen are submitted as follows: A-B. Anterior and posterior cervix. C-D. Anterior and posterior endomyometrium and serosa. E-H. Possible myomas with largest myoma in G and H. I-J. Left and right ovaries and tubes. LW/angie Microscopic Examination [facility] Comment: MICROSCOPIC: The section of the [...] The fallopian tubes are normal. BYRON/yoel Diagnosis [facility] Comment: DIAGNOSIS: 1. Uterus, total abdominal hysterectomy with bilateral salpingo- oophorectomy: Cervix: -- No pathologic diagnosis Endometrium: -- Weakly proliferative pattern Myometrium: -- Leiomyomata -- Adenomyosis Ovary, left: -- Follicular cyst Ovary, right: -- Hemorrhagic corpus luteum Fallopian tubes, bilateral: -- No pathologic diagnosis BYRON/yoel Released by [facility] CPT Code 86871 [facility] HYSTERECTOMY AND BILATERAL SALPINGO-OOPHORECTOM Y SPECIMEN / Unknown 01/05/2011 9:06 AM JANITORIAL MAINTENANCE WORKER 01/05/2011 9:06 AM JANITORIAL MAINTENANCE WORKER Rock Bullock MD LAB - PATHOLOGY/CYTO LOGY ORDERABLES Performing Organization Address [facility] Co de Phone Number [facility] [address] [place] [address] * HCG URINE QUALITATIVE - POINT OF CARE (01/05/2011 6:15 AM JANITORIAL MAINTENANCE WORKER) HCG Qual Urine neg Negative [facility] POCT TESTING QC Verified yes Yes [facility] POC T TESTING Urine specimen (specimen) URINE / Unknown 01/05/2011 6:15 AM JANITORIAL MAINTENANCE WORKER Paul Stevenson MD LAB - POINT OF CARE ORDERABLES Performing Organization Address [facility] Co de Phone Number [facility] POCT TESTING [address] [place] [address] * HGB HCT PANEL (01/05/2011 6:10 AM JANITORIAL MAINTENANCE WORKER) Hemoglobin 13.2 12.0 - 16.0 gm/dl [facility] Hematocrit 38.0 36.0 - 48.0 % [facility] BLOOD SPECIMEN / Unknown 01/05/2011 6:10 AM JANITORIAL MAINTENANCE WORKER 01/05/2011 6:18 AM JANITORIAL MAINTENANCE WORKER Rock Bullock MD LAB - HEMATOLOGY ORD ERABLES Performing Organization Address [facility] de Phone Number [facility] [address] [place] [address] * US PELVIS WITH TRANSVAG NON OB (12/26/2010 8:19 AM JANITORIAL MAINTENANCE WORKER) Anatomical Region Laterality Modality Pelvis Ultrasound 12/26/2010 10:1 6 AM JANITORIAL MAINTENANCE WORKER Impressions 12/26/2010 10:31 AM JANITORIAL MAINTENANCE WORKER The uterus is grossly enlarged, lobulated in contour, and heterogeneous in echotexture, consistent with the presence of multiple myomata. The ovaries are sonographically unremarkable. Narrative 12/26/2010 10:31 AM JANITORIAL MAINTENANCE WORKER ULTRASOUND PELVIS - TRANSABDOMINAL/TRANSVAGINAL WITH DOPPLER Indication: [...] unremarkable. Rock Bullock MD ORDERABLES Care Teams Network Services Project Manager Relationship Specialty Start Date End Date Dillan Woody MD PCP - General Internal Medicine 02/26/12
--- OUTSIDE RECORDS SUMMARY | 2025-01-08 14:46 | XMS_ITS | Encounter Summary ---
Author Organization [facility] Address [address] [place] [address] Care Team Providers Care Shrimp Peeler Name Role Phone Priscila Tessy Britte Primary Care Provider [phone] Encounter Details Date Type Department Care Team (Late st Contact Info) Description 10/26/2008 Outpatient Historical [facility] Mago Sarabia MD Social History Tobacco Use Types Packs/Day Years Used Date Smoking Tobacco: Never Assessed Comments Unknown Sex and Gender Information Value Date Recorded Sex Assigned at Not on file Legal Sex Female 5:28 AM MANAGER RESEARCH AND DEVELOPMENT Gender Identity Not on file Sexual Orientation Not on file documented as of this encounter Plan of Treatment Not on file documented as of this encounter Procedures Procedure Name Priority Date/Time Associated Diagnosis Comments STOOL CULTURE (SILVANO,SHIG,CAMPY,ECO1 57) Routine 10/26/2008 7:52 AM MANAGER RESEARCH AND DEVELOPMENT C. DIFFICILE DETECTION Routine 10/26/2008 7:52 AM MANAGER RESEARCH AND DEVELOPMENT FECAL LEUKOCYTES STAIN Routine 10/26/2008 7:52 AM MANAGER RESEARCH AND DEVELOPMENT OVA AND PARASITE SCREEN Routine 10/26/2008 7:52 AM MANAGER RESEARCH AND DEVELOPMENT documented in this encounter Results * CLOSTRIDIUM DIFFICILE TOXIN (10/26/2008 7:52 AM MANAGER RESEARCH AND DEVELOPMENT) FINAL REPORT NO Clostridium difficile Toxin A or B detected by EIA. A negative result does not rule out C. difficile associated diarrhea or colitis. [facility] Stool specimen (specimen) 10/26/2008 7:52 AM MANAGER RESEARCH AND DEVELOPMENT 10/26/2008 8:13 AM MANAGER RESEARCH AND DEVELOPMENT us Sujatha Prado MD MICROBIOLOGY - GENERAL ORDERABL ES Final Result Performing Organization Address [facility] de Phone Number INTERFACE SYSTEM Refer to clinic/hospital department [facility] CLIA# [id number] [address] [place] [address] * OVA AND PARASITE SCREEN (10/26/2008 7:52 AM MANAGER RESEARCH AND DEVELOPMENT) PRELIMINARY REPORT Pending [facility] FINAL REPORT Concentration : No ova or parasites seen. Trichrome: No ova or parasites seen. [facility] Stool specimen (specimen) 10/26/2008 7:52 AM MANAGER RESEARCH AND DEVELOPMENT 10/26/2008 8:15 AM MANAGER RESEARCH AND DEVELOPMENT Narrative INTERFACE SYSTEM - 11/02/2008 7:09 AM MANAGER RESEARCH AND DEVELOPMENT Performed by [employer] [address] Performed by [employer] [address] us Sujatha Prado MD MICROBIOLOGY - GENERAL ORDERABL ES Final Result Performing Organization Address [facility] Phone Number INTERFACE SYSTEM Refer to clinic/hospital department [facility] CLIA# [id number] [address] [place] [address] * FECAL LEUKOCYTES STAIN (10/26/2008 7:52 AM MANAGER RESEARCH AND DEVELOPMENT) FINAL REPORT Few WBC's seen [facility] Stool specimen (specimen) 10/26/2008 7:52 AM MANAGER RESEARCH AND DEVELOPMENT 10/26/2008 8:13 AM MANAGER RESEARCH AND DEVELOPMENT us Sujatha Prado MD MICROBIOLOGY - GENERAL ORDERABL ES Final Result Performing Organization Address [facility] de Phone Number INTERFACE SYSTEM Refer to clinic/hospital department [facility] CLIA# [id number] [address] [place] [address] * STOOL CULTURE (SILVANO,SHIG,CAMPY,SMI111) (10/26/2008 7:52 AM MANAGER RESEARCH AND DEVELOPMENT) PRELIMINARY REPORT No Salmonella isolated. No Shigella isolated. No Escherichia coli serogroup O157:H[address]. [facility] FINAL REPORT No Salmonella isolated. No Shigella isolated. No Escherichia coli serogroup O157:H7 isolated. No Camplylobacter isolated. [facility] Stool specimen (specimen) 10/26/2008 7:52 AM MANAGER RESEARCH AND DEVELOPMENT 10/26/2008 8:17 AM MANAGER RESEARCH AND DEVELOPMENT us Sujatha Prado MD MICROBIOLOGY - GENERAL ORDERABL ES Final Result INTERFACE SYSTEM Refer to clinic/hospital department [facility] CLIA# [id number] [address] [place] [address] documented in this encounter Visit Diagnoses Not on filedocumented in this encounter Care Teams Shrimp Peeler Relationship Specialty Start Date End Date Tessy Francois DO [address] [place] [address] PCP - General 11/17/15 documented as of this encounter
--- OUTSIDE RECORDS SUMMARY | 2025-01-08 14:46 | XMS_ITS | Encounter Summary ---
Author Organization [facility] Address [address] [place] [address] Care Team Providers Care Gas Refrigerator Servicer Name Role Phone Priscila Tessydasha Mchugh Primary Care Provider [phone] Encounter Details Date Type Department Care Team (Latest Contact Info) Description 01/26/2009 Outpatient Historical [facility] Sujatha Ledesma MD [address] [place] [address] Regional Enteritis of Unspecified Site (CMS/HCC) Social History Tobacco Use Types Packs/Day Years Used Date Smoking Tobacco: Never Assessed Comments Unknown Sex and Gender Information Value Date Recorded Sex Assigned at Not on file Legal Sex Female 5:28 AM COIL FORMER Gender Identity Not on file Sexual Orientation Not on file documented as of this encounter Plan of Treatment Not on file documented as of this encounter Procedures Procedure Name Priority Date/Time Associated Diagnosis Comments CBC WITH DIFFERENTIAL Routine 01/26/2009 4:41 PM COIL FORMER documented in this encounter Results * (ABNORMAL) CBC WITH DIFFERENTIAL (01/26/2009 4:41 PM COIL FORMER) RBC 4.32 3.90 - 4.90 M/uL [facility] MCHC 33.2 31.5 - 35.5 % [facility] MCV 97.0 82.0 - 99.0 fL [facility] PLATELETS 317 140 - 350 K/uL [facility] HEMOGLOBIN 13.9 11.8 - 14.8 g/dL [facility] RDW 13.2 11.5 - 14.5 % [facility] WBC 12.1(H) 4.0 - 9.8 K/uL [facility] MCH 32.2 27.2 - 32.6 pg [facility] MPV 10.5 9.3 - 12.4 fL [facility] HEMATOCRIT 41.9 35.5 - 44.0 % [facility] RDW-STDEV 46.5 37.1 - 48.7 fL [facility] MONOCYTE ABSOLUTE 0.82 0.10 - 1.30 K/uL [facility] LYMPHOCYTES 16 16 - 45 % [facility] NEUTROPHIL ABSOLUTE 9.16(H) 1.90 - 7.00 K/uL [facility] NEUTROPHILS 76(H) 45 - 70 % [facility] EOSINOPHILS 1 0 - 7 % [facility] EOSINOPHIL ABSOLUTE 0.06 0.00 - 0.70 K/uL [facility] LYMPHOCYTE ABSOLUTE 1.96 0.70 - 4.50 K/uL [facility] BASOPHILS 0 0 - 2 % [facility] BASOPHILS ABSOLUTE 0.05 0.00 - 0.20 K/uL [facility] MONOCYTES 7 3 - 13 % [facility] Blood specimen (specimen) 01/26/2009 4:41 PM COIL FORMER 01/26/2009 5:07 PM COIL FORMER us Sujatha Prado MD HEMATOLOGY ORDERABLES Edited INTERFACE SYSTEM Refer to clinic/hospital department [facility] CLIA# [id number] [address] [place] [address] documented in this encounter Visit Diagnoses Diagnosis Regional enteritis of unspecified site (CMS/HCC) Regional enteritis of unspecified site documented in this encounter Care Teams Gas Refrigerator Servicer Relationship Specialty Start Date End Date Tessy Francois DO [address] [place] [address] PCP - General 11/17/15 documented as of this encounter
--- OUTSIDE RECORDS SUMMARY | 2025-01-08 14:46 | XMS_ITS | Encounter Summary ---
Author Organization [employer] Address [address] [place] [address] Care Team Providers Care Assurance Senior Manager Insurance Name Role Phone Tessy Francois DO Primary Care Provider [phone] Encounter Details Date Type Department Care Team (Late st Contact Info) Description 08/28/2007 Outpatient Historical [facility] Support Serv. ([facility]) [address] [place] [address] Tristan Lance MD NO ADDRESS ON FILE Social History Tobacco Use Types Packs/Day Years Used Date Smoking Tobacco: Never Assessed Comments Unknown Sex and Gender Information Value Date Recorded Sex Assigned at Not on file Legal Sex Female 5:28 AM DOCUMENT SCANNER Gender Identity Not on file Sexual Orientation Not on file documented as of this encounter Plan of Treatment Not on file documented as of this encounter Visit Diagnoses Not on filedocumented in this encounter Care Teams Assurance Senior Manager Insurance Relationship Specialty Start Date End Date Tessy Francois DO [address] [place] [address] PCP - General 11/17/15 documented as of this encounter
--- OUTSIDE RECORDS SUMMARY | 2025-01-08 14:46 | XMS_ITS | Encounter Summary ---
Author Organization [facility] Address [address] [place] [address] Care Team Providers Care Spring Coiler Hand Name Role Phone Priscila Tessydasha Mchugh Primary Care Provider [phone] Encounter Details Date Type Department Care Team (Latest Contact Info) Description 05/18/2009 Outpatient Historical [facility] Sujatha Ledesma MD [address] [place] [address] Regional Enteritis of Unspecified Site (CMS/HCC) Social History Tobacco Use Types Packs/Day Years Used Date Smoking Tobacco: Never Assessed Comments Unknown Sex and Gender Information Value Date Recorded Sex Assigned at Not on file Legal Sex Female 5:28 AM NATURAL GAS PLANT SUPERVISOR Gender Identity Not on file Sexual Orientation [...] CDT) CALCIUM 9.6 8.6 - 10.2 mg/dL [facility] CHLORIDE 100 96 - 108 mmol/L [facility] ALBUMIN 4.4 3.4 - 4.8 g/dL [facility] CREATININE 0.67 0.51 - 0.95 mg/dL [facility] SODIUM 139 135 - 145 mmol/L [facility] ALT 13 0 - 31 U/L [facility] ALKALINE PHOSPHATASE 48 35 - 104 U/L [facility] BILIRUBIN TOTAL 0.4 0.2 - 1.0 mg/dL [facility] CO2 26 22 - 30 mmol/L [facility] TOTAL PROTEIN 7.2 6.3 - 8.6 g/dL [facility] POTASSIUM 4.0 3.5 - 4.9 mmol/L [facility] GLUCOSE 109(H) 65 - 99 mg/dL [facility] AST 15 12 - 32 U/L [facility] BUN 7 6 - 20 mg/dL [facility] GFR, >60 >=60 mL/min/1. 7 sq meter [facility] GFR >60 >=60 mL/min/1. 7 sq meter [facility] Comment: Modification of Diet in Renal Disease (MDRD) study formula. Estimated GFR rate interpretative information for both Americans and non- Americans is available on the [facility] Intranet at: [email or web address] Select: Lab Policies and Procedures Select: Reference Ranges - GFR 05/18/2009 4:50 PM CDT 05/18/2009 5:14 PM CDT us Sujatha Prado MD CHEMISTRY ORDERABLES Edited INTERFACE SYSTEM Refer to clinic/hospital department [facility] CLIA# [id number] [address] [place] [address] * C-REACTIVE PROTEIN (05/18/2009 4:50 PM CDT) [facility] CRP 0.5 0.0 - 0.8 mg/dL [facility] 05/18/2009 4:50 PM CDT 05/18/2009 5:14 PM CDT us Sujatha Prado MD CHEMISTRY ORDERABLES Final Resu lt INTERFACE SYSTEM Refer to clinic/hospital department [facility] CLIA# [id number] [address] [place] [address] * (ABNORMAL) CBC WITH DIFFERENTIAL (05/18/2009 4:50 PM CDT) [facility] RBC 3.59(L) 3.90 - 4.90 M/uL [facility] MCHC 33.9 31.5 - 35.5 % [facility] MCV 102.8(H) 82.0 - 99.0 fL [facility] PLATELETS 373(H) 140 - 350 K/uL [facility] HEMOGLOBIN 12.5 11.8 - 14.8 g/dL [facility] RDW 14.1 11.5 - 14.5 % [facility] WBC 8.3 4.0 - 9.8 K/uL [facility] MCH 34.8(H) 27.2 - 32.6 pg [facility] MPV 10.1 9.3 - 12.4 fL [facility] HEMATOCRIT 36.9 35.5 - 44.0 % [facility] RDW-STDEV 52.3(H) 37.1 - 48.7 fL [facility] MONOCYTES 7 3 - 13 % [facility] MONOCYTE ABSOLUTE 0.62 0.10 - 1.30 K/uL [facility] NEUTROPHILS 73(H) 45 - 70 % [facility] NEUTROPHIL ABSOLUTE 6.06 1.90 - 7.00 K/uL [facility] EOSINOPHILS 2 0 - 7 % [facility] EOSINOPHIL ABSOLUTE 0.16 0.00 - 0.70 K/uL [facility] LYMPHOCYTES 18 16 - 45 % [facility] LYMPHOCYTE ABSOLUTE 1.46 0.70 - 4.50 K/uL [facility] BASOPHILS 1 0 - 2 % [facility] BASOPHILS ABSOLUTE 0.04 0.00 - 0.20 K/uL [facility] 05/18/2009 4:50 PM CDT 05/18/2009 5:12 PM CDT us Sujatha Prado MD HEMATOLOGY ORDERABLES Edited INTERFACE SYSTEM Refer to clinic/hospital department [facility] CLIA# [id number] [address] [place] [address] documented in this encounter Visit Diagnoses Diagnosis Regional enteritis of unspecified site (CMS/HCC) Regional enteritis of unspecified site documented in this encounter Care Teams Spring Coiler Hand Relationship Specialty Start Date End Date Tessy Francois DO [address] [place] [address] PCP - General 11/17/15 documented as of this encounter
--- OUTSIDE RECORDS SUMMARY | 2025-01-08 14:46 | XMS_ITS | Encounter Summary ---
Author Organization [facility] Address [address] [place] [address] Care Team Providers Care Bag Bundler Name Role Phone Rock Bullock MD Primary Care Provider [phone] Dillan Woody MD Primary Care Provider [phone] Encounter Details Date Type Department Care Team (Late st Contact Info) Description 12/28/2010 [facility] Out[facility] Rock Bullock MD [address] [place] [address] Social History Tobacco Use Types [...] on filedocumented in this encounter Care Teams Bag Bundler Relationship Specialty Start Date End Date Rock Bullock MD [address] [place] [address] PCP - General 12/26/10 02/25/12 Dillan Woody MD [address] [place] [address] PCP - General Internal Medicine 02/26/12 documented as of this encounter
--- OUTSIDE RECORDS SUMMARY | 2025-01-08 14:46 | XMS_ITS | Encounter Summary ---
Author Organization [facility] Address [address] Attn: Epic Prelude ADT [place] [place] [address] Care Team Providers Care Regional Intermodal Truck Driver Name Role Phone Tessy Francois DO Primary Care Provider [phone] Encounter Details Date Type Department Care Team (Late st Contact Info) Description 08/27/2007 Outpatient Historical Amari Emmanuel MD NO ADDRESS ON FILE Social History Tobacco Use Types Packs/Day Years Used Date Smoking Tobacco: Never Assessed Comments Unknown Sex and Gender Information Value Date Recorded Sex Assigned at Not on file Legal Sex Female 5:28 AM INFORMATION SYSTEMS PLANNER Gender Identity Not on file Sexual Orientation Not on file documented as of this encounter Plan of Treatment Not on file documented as of this encounter Visit Diagnoses Not on filedocumented in this encounter Care Teams Regional Intermodal Truck Driver Relationship Specialty Start Date End Date Tsesy Francois DO [address] [place] [address] PCP - General 11/17/15 documented as of this encounter
--- OUTSIDE RECORDS SUMMARY | 2025-01-08 14:46 | XMS_ITS | Clinical Summary ---
Author Organization [facility] Address [address] [place] [address] Care Team Providers Care Reconciliation Manager Name Role Phone Tessy Francois DO Primary Care Provider [phone] Allergies Active Allergy Reactions Criticality Noted Date Comments Cephalexin Anaphylaxis High 02/26/2013 Ciprofloxacin Unknown 02/26/2013 Hydrocodone Itching Low 04/01/2014 Unclassified Drug Seizure High 05/16/2017 spirolactine Medications FLUoxetine (PROZAC) 20 mg Oral tablet Take 1 Tab by mouth daily. 30 Tab 11 3 Active azaTHIOprine (IMURAN) 50 mg Oral tablet 3 Active NASCOBAL 500 mcg Both Nostril [place] 3 Active DELZICOL 400 mg Oral CpDR [...] migh t be different from the original. Director Game - Dr Shashank Rodriguez Problem Noted Date [...] on file Legal Sex Female 5:28 AM SAFETY ATTENDANT Gender Identity Not on file Sexual Orientation Not on file Occupation Industry Job Start Date Job End Date Not on file Not on file Not on file Not on file Last Filed Vital Signs Vital Sign Reading Time Taken Comments Blood Pressure 136/72 12/30/2017 8:37 AM SAFETY ATTENDANT Pulse 71 05/16/2017 10:45 AM CDT Temperature - - Respiratory Rate 17 08/11/2013 11:39 AM CDT Oxygen Saturation - - Inhaled Oxygen Concentration - - Weight 73.5 kg (162 lb) 12/30/2017 8:37 AM SAFETY ATTENDANT Height 171.5 cm (5' 7.5 ) 12/30/2017 8:37 AM SAFETY ATTENDANT Body Mass Index 25 12/30/2017 8:37 AM SAFETY ATTENDANT Plan of Treatment Health Maintenance Due Date [...] OR WO CAD Routine 01/01/2018 10:27 AM SAFETY ATTENDANT Nipple discharge, bloody CERV/VAG CYTO SCREEN PAP RLFX HPV Routine 05/16/2017 11:14 AM CDT Encounter for gynecological examination without abnormal finding POC OCCULT BLOOD 1 CARD Routine 04/01/2014 1:30 PM CDT Routine gynecological examination from Last 3 Months or Most Recently Relevant to Health Maintenance Results * MAMMO DIAGNOSTIC BILATERAL W OR WO CAD (01/01/2018 10:27 AM SAFETY ATTENDANT) Anatomical Region Laterality Modality Breast Bilateral Mammography 01/01/2018 10:2 7 AM SAFETY ATTENDANT Impressions 01/01/2018 2:29 PM SAFETY ATTENDANT IMPRESSION: Bilateral breast implants. Negative and stable bilateral diagnostic mammogram. Mildly dilated ducts and occasional cysts, otherwise negative bilateral subareolar breast sonogram. If the bloody nipple discharge persists, recommend further evaluation with breast MRI. Overall Assessment: BI-RADS Category: 2. Benign finding(s). Dictation Location: [facility] 01/01/2018 2:29 PM SAFETY ATTENDANT BILATERAL DIAGNOSTIC DIGITAL IMPLANT MAMMOGRAMS WITH CAD [...] BI-RADS Category: 2. Benign finding(s). Dictation Location: [facility] Danny Chan MD MAMMO ORDERABLES Final [...] has been evaluated with computer assisted technology. SOCIAL SCIENCES INSTRUCTOR: SEE COMMENT 2016 10:31 AM CDT [facility] Comment: TMK, CT(ASCP) CT screening location: [place] [address] [address] [place] [address] Genital SWAB OF ENDOCERVIX / Unknown Collection / Unknown 05/16/2017 11:14 AM CDT 05/16/2017 8:09 PM CDT Narrative [facility] - 05/23/2017 10:31 AM CDT Performing Organization Information: Site ID: [id number] Name: [facility] Address: [facility] [address] [place] [address] Director: Chad Lemos MD Rock Bullock MD PATHOLOGY/CYTOLOGY ORDERABLES Fi nal Result [facility] * POC OCCULT BLOOD 1 CARD (04/01/2014 1:30 PM CDT) OCCULT BLOOD #1 Negative Negative [facility] Stool specimen (specimen) 04/01/2014 1:30 PM CDT us Rock Bullock MD POINT OF CARE TESTING Final Resu lt [facility] from Last 3 Months or Most Recently Relevant to Health Maintenance [place] [address] [address] [place] [id number] Member Subscriber Plan / Payer (Ef fective 2021-Present) Name:Gina Cole Relation to Subscriber:Spouse Name:SHAWNEE COLE Date of :1963 (Home) (Work) Address: [address] [place] [address] Payer ID:[id number] (NAIC) Type:PPO Address: [facility] [id number] [place] [id number] Care Teams Reconciliation Manager Relationship Specialty Start Date End Date Tessy Francois DO [address] [place] [address] PCP - General 11/17/15
--- OUTSIDE RECORDS SUMMARY | 2025-01-08 14:46 | XMS_ITS | Encounter Summary ---
Author Organization [facility] Address [address] [place] [address] Care Team Providers Care Manager Project Management Name Role Phone FrancoisTessy verduzco Primary Care Provider [phone] Encounter Details Date Type Department Care Team (Latest Contact Info) Description 12/06/2008 Outpatient Historical [facility] Sujatha Ledesma MD [address] [place] [address] Regional Enteritis of Large Intestine (CMS/HCC) Social History Tobacco Use Types Packs/Day Years Used Date Smoking Tobacco: Never Assessed Comments Unknown Sex and Gender Information Value Date Recorded Sex Assigned at Not on file Legal Sex Female 5:28 AM MUNITIONS HANDLER Gender Identity Not on file Sexual Orientation Not on file documented as of this encounter Plan of Treatment Not on file documented as of this encounter Procedures Procedure Name Priority Date/Time Associated Diagnosis Comments MISCELLANEOUS LAB TEST Routine 9 10:17 AM MUNITIONS HANDLER documented in this encounter Results * MISCELLANEOUS LAB TEST (12/06/2008 10:17 AM MUNITIONS HANDLER) TEST NAME TPMT [facility] SPECIMEN TYPE Blood [facility] MISCELLANEOUS LAB TEST Name of Test: TPMT Test Result: TPMT*1/TPMT*1 Alleles present are associated with Normal Enzyme Activity Reference Range: TPMT*1/TPMT*1 Test Performed By: [employer] [place], [place] [facility] Specimen of unknown material (specimen) 12/06/2008 10:17 AM MUNITIONS HANDLER 12/06/2008 10:34 AM MUNITIONS HANDLER Narrative INTERFACE SYSTEM - 12/09/2008 8:39 AM MUNITIONS HANDLER Name of test:tpmt genotype us Sujatha Prado MD CHEMISTRY ORDERABLES Edited INTERFACE SYSTEM Refer to clinic/hospital department [facility] CLIA# [id number] [address] [place] [address] documented in this encounter Visit Diagnoses Diagnosis Regional enteritis of large intestine (CMS/HCC) Regional enteritis of large intestine documented in this encounter Care Teams Manager Project Management Relationship Specialty Start Date End Date Tessy Francois DO [address] [place] [address] PCP - General 11/17/15 documented as of this encounter
--- OUTSIDE RECORDS SUMMARY | 2025-01-08 14:46 | XMS_ITS | Referral Summary ---
Author Organization [facility] Address [address] [place] [address] Care Team Providers Care Patient Care Specialist Name Role Phone Dillan Woody MD Primary Care Provider [phone] Source Comments [facility],non-owned Affiliates and Associated Physician Practices is amultiple site organization consisting of ambulatory clinics and hospital sitesin [place], [place]. This disclosure is being madepursuant to the Care Everywhere program and may not contain all information available regarding this patient. Last updated 18.[facility] Allergies Active Allergy Reactions Criticality Noted Date [...] daily. 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
--- OUTSIDE RECORDS SUMMARY | 2025-01-08 14:46 | XMS_ITS | Encounter Summary ---
Author Organization [employer] Address 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 Findings: A preliminary abdominal tape cutter radiograph is not remarkable. Following oral administration [...] Procedure Note Tristan Cates MD - 09/28/2008 [facility] [address] [place], [place] [address] Admit Date: 09/24/2008 COLE ZEINA Carolina Sex: F Admit Prov: NADIA SARABIA Date: 1960 Primary Care Prov: NADIA SARABIA CMRN: [id number] Room: [facility] SSN: [id number] IMAGING SERVICES Ordering Prov: N/A Interpretation SMALL BOWEL SERIES, 09/28/2008 Clinical History: Crohn's disease, right lower quadrant abdominalpain, possible jejunal intussusception seen on recent abdominal CT. Findings: A preliminary abdominal tape cutter radiograph is notremarkable. Following oral administration of [...] ALKALINE PHOSPHATASE 66 35 - 104 U/L [facility] ALT 14 0 - 31 U/L [facility] CHLORIDE 98 96 - 108 mmol/L [facility] AST 15 12 - 32 U/L [facility] BUN 7 6 - 20 mg/dL [facility] TOTAL PROTEIN 6.5 6.3 - 8.6 g/dL [facility] BILIRUBIN TOTAL 0.3 0.2 - 1.0 mg/dL [facility] CREATININE 0.76 0.51 - 0.95 mg/dL [facility] CO2 27 22 - 30 mmol/L [facility] ALBUMIN 3.7 3.4 - 4.8 g/dL [facility] SODIUM 132(L) 135 - 145 mmol/L [facility] CALCIUM 8.8 8.6 - 10.2 mg/dL [facility] GLUCOSE 123(H) 65 - 99 mg/dL [facility] POTASSIUM 3.2(L) 3.5 - 4.9 mmol/L [facility] GFR, >60 >=60 mL/min/1. [address] [facility] GFR >60 >=60 mL/min/1. [address] [facility] Comment: Modification of Diet in Renal Disease (MDRD) study formula. Estimated GFR rate interpretative information for both Americans and non- Americans is available on the [facility] Intranet at: [email or web address] Select: Lab Policies and Procedures Select: Reference Ranges - GFR Blood specimen (specimen) 09/24/2008 2:27 PM CDT 09/24/2008 2:33 PM CDT Nadia Sarabia MD CHEMISTRY ORDERABLES Edited INTERFACE SYSTEM Refer to clinic/hospital department [facility] CLIA# [id number] [address] [facility] [address] [place] [id number] * (ABNORMAL) CBC WITH DIFFERENTIAL (09/24/2008 2:27 PM CDT) WBC 8.0 4.0 - 9.8 K/uL [facility] MCH 32.1 27.2 - 32.[address] [facility] MPV 10.2 9.3 - 12.[address] [facility] HEMATOCRIT 38.8 35.5 - 44.0 % [facility] RDW-STDEV 43.3 37.1 - 48.[address] [facility] RBC 4.02 3.90 - 4.90 M/uL [facility] MCHC 33.2 31.5 - 35.5 % [facility] MCV 96.5 82.0 - 99.[address] [facility] PLATELETS 312 140 - 350 K/uL [facility] HEMOGLOBIN 12.9 11.8 - 14.8 g/dL [facility] RDW 12.3 11.5 - 14.5 % [facility] MONOCYTES 9 3 - 13 % [facility] MONOCYTE ABSOLUTE 0.75 0.10 - 1.30 K/uL [facility] NEUTROPHILS 71(H) 45 - 70 % [facility] NEUTROPHIL ABSOLUTE 5.70 1.90 - 7.00 K/uL [facility] EOSINOPHILS 3 0 - 7 % [facility] EOSINOPHIL ABSOLUTE 0.20 0.00 - 0.70 K/uL [facility] LYMPHOCYTES 16 16 - 45 % [facility] LYMPHOCYTE ABSOLUTE 1.30 0.70 - 4.50 K/uL [facility] BASOPHILS 1 0 - 2 % [facility] BASOPHILS ABSOLUTE 0.05 0.00 - 0.20 K/uL [facility] Blood specimen (specimen) 09/24/2008 2:27 PM CDT 09/24/2008 2:33 PM CDT us Nadia Sarabia MD HEMATOLOGY ORDERABLES Edited INTERFACE SYSTEM Refer to clinic/hospital department [facility] CLIA# [id number] [address] [facility] [place] [address] [address] [address] * CT ABDOMEN PELVIS W CONTRAST (09/24/2008 2:12 PM CDT) Anatomical Region Laterality Modality Abdomen Other 09/24/2008 2:12 PM CDT Narrative 09/24/2008 4:46 PM CDT [facility] [address] [place], [place] [address] Admit Date: 09/24/2008 ZEINA COLE Sex: F Admit Prov: NADIA SARABIA Date: 1960 Primary Care Prov: NADIA SARABIA CMRN: [id number] Room: [facility] SSN: [id number] IMAGING SERVICES Ordering Prov: N/A Accession Number: [id number] Interpretation CT SCAN OF THE ABDOMEN AND [...] Procedure Note Olimpia Cavanaugh MD - 09/24/2008 [facility] [address] [place], [place] [address] Admit Date: 09/24/2008 ZEINA COLE Sex: F Admit Prov: NADIA SARABIA Date: 1960 Primary Care Prov: NADIA SARABIA CMRN: [id number] Room: [facility] SSN: [id number] IMAGING SERVICES Ordering Prov: N/A Interpretation CT [...] CREATININE POC 0.8 0.6 - 1.3 mg/dL [facility] GFR, >60 >=60 mL/min/1.[address] [facility] GFR >60 >=60 mL/min/1.[address] [facility] Capillary blood specimen (specimen) 09/24/2008 2:05 PM CDT 09/24/2008 2:05 PM CDT us Nadia Sarabia MD POINT OF CARE TESTING Edited INTERFACE SYSTEM Refer to clinic/hospital department [facility] CLIA# [id number] [address] [place] [address] documented in this encounter Visit Diagnoses Not on filedocumented in this encounter Care Teams Director Of Advertising Sales Relationship Specialty Start Date End Date Tessy Francois DO [address] [place] [phone] PCP - General 11/17/15 documented as of this encounter
--- OUTSIDE RECORDS SUMMARY | 2025-01-08 14:47 | XMS_ITS | Encounter Summary ---
Author Organization [facility] Address [address] [place] [address] Care Team Providers Care Associate Data Scientist Name Role Phone FrancoisTessy verduzco Primary Care Provider [phone] Encounter Details Date Type Department Care Team (Latest Contact Info) Description 10/23/2008 Outpatient Historical HIS [facility] Sujatha Ledesma MD [address] [place] [address] Functional Diarrhea Social History Tobacco Use Types Packs/Day Years Used Date Smoking Tobacco: Never Assessed Comments Unknown Sex and Gender Information Value Date Recorded Sex Assigned at Not on file Legal Sex Female 5:28 AM HUMAN RESOURCE ADVISER Gender Identity Not on file Sexual Orientation Not on file documented as of this encounter Plan of Treatment Not on file documented as of this encounter Procedures Procedure Name Priority Date/Time Associated Diagnosis Comments C-REACTIVE PROTEIN Routine 10/23/2008 8: 19 AM HUMAN RESOURCE ADVISER documented in this encounter Results * C-REACTIVE PROTEIN (10/23/2008 8:19 AM HUMAN RESOURCE ADVISER) CRP 0.2 0.0 - 0.8 mg/dL [facility] Blood specimen (specimen) 10/23/2008 8:19 AM HUMAN RESOURCE ADVISER 10/23/2008 9:00 AM HUMAN RESOURCE ADVISER us Sujatha Prado MD CHEMISTRY ORDERABLES Final Resu lt INTERFACE SYSTEM Refer to clinic/hospital department [facility] CLIA# [id number] [address] [place] [address] documented in this encounter Visit Diagnoses Diagnosis Functional diarrhea documented in this encounter Care Teams Associate Data Scientist Relationship Specialty Start Date End Date Tessy Francois DO [address] [place] [phone] PCP - General 11/17/15 documented as of this encounter
--- OUTSIDE RECORDS SUMMARY | 2025-01-08 14:47 | XMS_ITS | Encounter Summary ---
Author Organization [employer] Address [address] [place] [address] Care Team Providers Care Newspaper Illustrator Name Role Phone Priscila Tessy Britte Primary Care Provider [phone] Encounter Details Date Type Department Care Team [...] on file Legal Sex Female 5:28 AM ELECTRONIC OPERATOR Gender Identity Not on file Sexual Orientation Not on file documented as of this encounter Plan of Treatment Not on file documented as of this encounter Procedures Procedure Name Priority Date/Time Associated Diagnosis Comments CT HEAD WO CONTRAST Routine 12/29/2008 4 :15 PM ELECTRONIC OPERATOR CBC WITH DIFFERENTIAL Stat 12/29/2008 2:48 PM ELECTRONIC OPERATOR C-REACTIVE PROTEIN Stat 12/29/2008 2: 48 PM ELECTRONIC OPERATOR COMPREHENSIVE METABOLIC PANEL Stat 12/29/2008 2:48 PM ELECTRONIC OPERATOR documented in this encounter Results * CT HEAD WO CONTRAST (12/29/2008 4:15 PM ELECTRONIC OPERATOR) Anatomical Region Laterality Modality Head Other 12/29/2008 4:15 PM ELECTRONIC OPERATOR Narrative 12/29/2008 4:28 PM [facility] [address] [place], [place] [address] Admit Date: 12/29/2008 ZEINA COLE Sex: F Admit Prov: ER, AUTHORIZED P Date: 1960 Primary Care Prov: NADIA PEÑALOZA CMRN: [id number] [phone] IM[facility] Ordering Prov: N/A Accession Number: [id number] Interpretation CT head without contrast 12/29/2008.. History: [...] 12/29/2008 16:27 Procedure Note Meg Cheung 12/29/2008 [facility] [address] [place], [place] [address] Admit Date: 12/29/2008 ZEINA COLE Sex: F Admit Prov: ER, AUTHORIZED P Date: 1960 Primary Care Prov: NADIA PEÑALOZA CMRN: [id number] [facility] [phone] IMAGING SERVICES Ordering Prov: N/A Interpretation CT [...] Result * C-REACTIVE PROTEIN (12/29/2008 2:48 PM ELECTRONIC OPERATOR) CRP 0.3 0.0 - 0.8 mg/dL [facility] Blood specimen (specimen) 12/29/2008 2:48 PM ELECTRONIC OPERATOR 12/29/2008 3:01 PM ELECTRONIC OPERATOR Manjit Mendiola MD CHEMISTRY ORDERABLES Final R esult INTERFACE SYSTEM Refer to clinic/hospital department [facility] CLIA# [id number] [address] [place] [address] * (ABNORMAL) COMPREHENSIVE METABOLIC PANEL (12/29/2008 2:48 PM ELECTRONIC OPERATOR) CREATININE 0.67 0.51 - 0.95 mg/dL [facility] SODIUM 136 135 - 145 mmol/L [facility] ALT 26 0 - 31 U/L [facility] ALKALINE PHOSPHATASE 46 35 - 104 U/L [facility] BILIRUBIN TOTAL 0.4 0.2 - 1.0 mg/dL [facility] CO2 26 22 - 30 mmol/L [facility] TOTAL PROTEIN 6.6 6.3 - 8.6 g/dL [facility] POTASSIUM 4.0 3.5 - 4.9 mmol/L [facility] GLUCOSE 119(H) 65 - 99 mg/dL [facility] AST 22 12 - 32 U/L [facility] BUN 8 6 - 20 mg/dL [facility] CALCIUM 9.3 8.6 - 10.2 mg/dL [facility] CHLORIDE 101 96 - 108 mmol/L [facility] ALBUMIN 4.0 3.4 - 4.8 g/dL [facility] GFR, >60 >=60 mL/min/1. 7 sq meter [facility] GFR >60 >=60 mL/min/1. 7 sq meter [facility] Comment: Modification of Diet in Renal Disease (MDRD) study formula. Estimated GFR rate interpretative information for both Americans and non- Americans is available on the [facility] Intranet at: [email or web address] Select: Lab Policies and Procedures Select: Reference Ranges - GFR Blood specimen (specimen) 12/29/2008 2:48 PM ELECTRONIC OPERATOR 12/29/2008 3:01 PM ELECTRONIC OPERATOR us Manjit Mendiola MD CHEMISTRY ORDERABLES Edited INTERFACE SYSTEM Refer to clinic/hospital department [facility] CLIA# [id number] [address] [place], [place] [address] * (ABNORMAL) CBC WITH DIFFERENTIAL (12/29/2008 2:48 PM ELECTRONIC OPERATOR) RDW-STDEV 43.8 37.1 - 48.7 fL [facility] RBC 4.38 3.90 - 4.90 M/uL [facility] MCHC 33.8 31.5 - 35.5 % [facility] MCV 95.2 82.0 - 99.0 fL [facility] PLATELETS 304 140 - 350 K/uL [facility] HEMOGLOBIN 14.1 11.8 - 14.8 g/dL [facility] RDW 12.6 11.5 - 14.5 % [facility] WBC 11.0(H) 4.0 - 9.8 K/uL [facility] MCH 32.2 27.2 - 32.6 pg [facility] MPV 10.2 9.3 - 12.4 fL [facility] HEMATOCRIT 41.7 35.5 - 44.0 % [facility] MONOCYTES 4 3 - 13 % [facility] MONOCYTE ABSOLUTE 0.47 0.10 - 1.30 K/uL [facility] NEUTROPHILS 78(H) 45 - 70 % [facility] NEUTROPHIL ABSOLUTE 8.58(H) 1.90 - 7.00 K/uL [facility] EOSINOPHILS 1 0 - 7 % [facility] EOSINOPHIL ABSOLUTE 0.05 0.00 - 0.70 K/uL [facility] LYMPHOCYTES 17 16 - 45 % [facility] LYMPHOCYTE ABSOLUTE 1.89 0.70 - 4.50 K/uL [facility] BASOPHILS 0 0 - 2 % [facility] BASOPHILS ABSOLUTE 0.03 0.00 - 0.20 K/uL [facility] Blood specimen (specimen) 12/29/2008 2:48 PM ELECTRONIC OPERATOR 12/29/2008 3:01 PM ELECTRONIC OPERATOR us Manjit Mendiola MD HEMATOLOGY ORDERABLES Edited INTERFACE SYSTEM Refer to clinic/hospital department [facility] CLIA# [id number] [address] [place] [address] documented in this encounter Visit Diagnoses Not on filedocumented in this encounter Care Teams Newspaper Illustrator Relationship Specialty Start Date End Date Tessy Francois DO [address] [place] [address] PCP - General 11/17/15 documented as of this encounter
--- OUTSIDE RECORDS SUMMARY | 2025-01-08 14:47 | XMS_ITS | Clinical Summary ---
Author Organization [facility] Address [address] [place] [address] Care Team Providers Care Rock Room Worker Name Role Phone Dillan Woody MD Primary Care Provider [phone] Source Comments [facility],non-owned Affiliates and Associated Physician Practices is amultiple site organization consisting of ambulatory clinics and hospital sitesin [place], [place], [place] and [place]. This disclosure is being madepursuant to the Care Everywhere program and may not contain all information available regarding this patient. Last updated 18.[facility] Allergies Active Allergy Reactions Criticality Noted Date [...] daily. Active Cyanocobalamin (NASCOBAL) 500 MCG/0.1ML SOLN [place] 1 Squirt into the nose every 7 [...] 36.3 C (97.3 F) 01/07/2011 8:00 AM LINUX SECURITY ADMINISTRATOR Respiratory Rate 18 01/07/2011 8:00 AM LINUX SECURITY ADMINISTRATOR Oxygen Saturation 100% 01/05/2011 8:00 PM LINUX SECURITY ADMINISTRATOR Inhaled Oxygen Concentration - - Weight 73.9 [...] ICD9 [facility] ACCOUNT BILL Comment:V72.31 ; Routine dye penetrant testing technician ecological examination Performed by [facility] ACCOUNT BILL [...] Thin Prep Vial Resulting Agency Comment [facility] [address] [id number] Rock Bullock MD LAB - PATHOLOGY/CYTO LOGY [...] 10:33 PM 01/04/2011 8:00 PM Care Teams Rock Room Worker Relationship Specialty Start Date End Date Dillan Woody MD PCP - General Internal Medicine 02/26/12
--- OUTSIDE RECORDS SUMMARY | 2025-01-08 14:47 | XMS_ITS | Encounter Summary ---
Author Organization [facility] Address [address] [place] [address] Care Team Providers Care Sanitation Superintendent Name Role Phone PriscilaTessy Primary Care Provider [phone] Encounter Details Date Type Department Care Team (Late Contact Info) Description 10/23/2008 Outpatient Historical HIS [facility] Sarabia, MD Mago Social History Tobacco Use Types Packs/Day Years Used Date Smoking Tobacco: Never Assessed Comments Unknown Sex and Gender Information Value Date Recorded Sex Assigned at Not on file Legal Sex Female 5:28 AM CAFETERIA TABLE ATTENDANT Gender Identity Not on file Sexual Orientation Not on file documented as of this encounter Plan of Treatment Not on file documented as of this encounter Procedures Procedure Name Priority Date/Time Associated Diagnosis Comments GLUCOSE TOLERANCE, 2 HR Routine 10/23/2008 10:30 AM CAFETERIA TABLE ATTENDANT GLUCOSE FARHAT NON-GEST FOR DIABETES 2 HR Routine 10/23/2008 10:30 AM CAFETERIA TABLE ATTENDANT GLUCOSE TOLERANCE, FASTING Routine 10/23/2008 8:18 AM CAFETERIA TABLE ATTENDANT BASIC METABOLIC PANEL Routine 10/23/2008 8:18 AM CAFETERIA TABLE ATTENDANT documented in this encounter Results * GLUCOSE FARHAT NON-GEST FOR DIABETES 2 HR (10/23/2008 10:30 AM CAFETERIA TABLE ATTENDANT) COMMENT See Additional Orderables [facility] Blood specimen (specimen) 10/23/2008 10:30 AM CAFETERIA TABLE ATTENDANT 10/23/2008 10:32 AM CAFETERIA TABLE ATTENDANT Mago Sarabia MD CHEMISTRY ORDERABLES Final R esult Performing Organization Address [facility] de Phone Number INTERFACE SYSTEM Refer to clinic/hospital department [facility] CLIA# [id number] [address] [place] [address] * GLUCOSE TOLERANCE, 2 HR (10/23/2008 10:30 AM CAFETERIA TABLE ATTENDANT) GLUCOSE, 2HR 135 <=139 mg/dL [facility] Blood specimen (specimen) 10/23/2008 10:30 AM CAFETERIA TABLE ATTENDANT 10/23/2008 10:32 AM CAFETERIA TABLE ATTENDANT Mago Sarabia MD CHEMISTRY ORDERABLES Final [facility] Performing Organization Address [facility] Phone Number INTERFACE SYSTEM Refer to clinic/hospital department [facility] CLIA# [id number] [address] [place] [address] * BASIC METABOLIC PANEL (10/23/2008 8:18 AM CAFETERIA TABLE ATTENDANT) CHLORIDE 103 96 - 108 mmol/L [facility] GLUCOSE 86 65 - 99 mg/dL [facility] SODIUM 141 135 - 145 mmol/L [facility] CALCIUM 8.6 8.6 - 10.2 mg/dL [facility] CO2 28 22 - 30 mmol/L [facility] CREATININE 0.80 0.51 - 0.95 mg/dL [facility] POTASSIUM 3.9 3.5 - 4.9 mmol/L [facility] BUN 11 6 - 20 mg/dL [facility] GFR, >60 >=60 mL/min/1.7 sq meter [facility] GFR >60 >=60 mL/min/1.7 sq meter [facility] Comment: ansiModification of Diet in Renal Disease (MDRD) study formula. Estimated GFR rate interpretative information for both Americans and non- Americans is available on the [facility] Intranet at: [email or web address] Select: Lab Policies and Procedures Select: Reference Ranges - GFR Blood specimen (specimen) 10/23/2008 8:18 AM CAFETERIA TABLE ATTENDANT 10/23/2008 9:00 AM CAFETERIA TABLE ATTENDANT Mago Sarabia MD CHEMISTRY ORDERABLES Edited Performing Organization Address [facility] de Phone Number INTERFACE SYSTEM Refer to clinic/hospital department [facility] CLIA# [id number] [address] [place] [address] * GLUCOSE TOLERANCE, FASTING (10/23/2008 8:18 AM CAFETERIA TABLE ATTENDANT) GTT INTERP, NON-GESTATION AL Based on 75 g dose: Type 1 or 2 Diabetes Mellitus Criteria: Fasting (Baseline): > = 126 mg/dL or 2 hour specimen: > = 200 mg/dL Impaired Glucose Metabolism Criteria: Fasting (Baseline): 100 - 125 mg/dL 2 hour specimen: 140 - 199 mg/dL [facility] GLUCOSE FASTING 86 <=99 mg/dL [facility] Blood specimen (specimen) 10/23/2008 8:18 AM CAFETERIA TABLE ATTENDANT 10/23/2008 9:00 AM CAFETERIA TABLE ATTENDANT us Mago Sarabia MD CHEMISTRY ORDERABLES Final R esult Performing Organization Address [facility] de Phone Number INTERFACE SYSTEM Refer to clinic/hospital department [facility] CLIA# [id number] [address] [place] [address] documented in this encounter Visit Diagnoses Not on filedocumented in this encounter Care Teams Sanitation Superintendent Relationship Specialty Start Date End Date Tessy Francois DO [address] [place] [address] PCP - General 11/17/15 documented as of this encounter
--- OUTSIDE RECORDS SUMMARY | 2025-01-08 14:47 | XMS_ITS | Encounter Summary ---
Author Organization [employer] Address [address] [place] [address] Care Team Providers Care Industrial Machine System Technician Name Role Phone Tessy Francois DO Primary Care Provider [phone] Encounter Details Date Type Department Care Team (Late st Contact Info) Description 10/07/2008 Outpatient Historical HIS [facility] Madelyn Rae MD [address] [facility] [address] [facility] [address] [place] [address] Regional Enteritis of Unspecified Site (CMS/HCC) Social History Tobacco Use Types Packs/Day Years Used Date Smoking Tobacco: Never Assessed Comments Unknown Sex and Gender Information Value Date Recorded Sex Assigned at Not on file Legal Sex Female 5:28 AM FURNITURE DECALS INSPECTOR Gender Identity Not on file Sexual Orientation Not on file documented as of this encounter Plan of Treatment Not on file documented as of this encounter Procedures Procedure Name Priority Date/Time Associated Diagnosis Comments PATHOLOGY Routine 10/07/2008 3:22 PM FURNITURE DECALS INSPECTOR STOOL CULTURE (SILVANO,SHIG,CAMPY,ECO 157) Routine 10/07/2008 3:17 PM FURNITURE DECALS INSPECTOR C. DIFFICILE DETECTION Routine 10/07/2008 3:17 PM FURNITURE DECALS INSPECTOR OVA AND PARASITE SCREEN Routine 10/07/2008 3:17 PM FURNITURE DECALS INSPECTOR POC , URINE Routine 10/07/2008 1:40 PM FURNITURE DECALS INSPECTOR documented in this encounter Results * PATHOLOGY (10/07/2008 3:22 PM FURNITURE DECALS INSPECTOR) FINAL REPORT [facility] [address] [place], [place] [address] Patient: ZEINA COLE : 1960 Procedure Date: 10/07/2008 Accession Date: 10/07/2008 Case No: [id number] Ordering Dr: MADELYN RAE Case types AW, BW, FW, NW and SH are performed by [facility], [place], [place] SURGICAL PATHOLOGY & NON-GYNECOLOGIC CYTOPATHOLOGY REPORT [...] 04:36 pm Microscopic: The slides are labeled [id number], Zeina Cole. Sections of the left colon [...] 09:19 am INTERFACE SYSTEM 10/07/2008 3:22 PM FURNITURE DECALS INSPECTOR us Madelyn Rae MD PATHOLOGY/CYTOLOGY ORDERABLE S Final Result INTERFACE SYSTEM Refer to clinic/hospital department * OVA AND PARASITE SCREEN (10/07/2008 3:17 PM FURNITURE DECALS INSPECTOR) PRELIMINARY REPORT Pending [facility] FINAL REPORT Concentration : No ova or parasites seen. Trichrome: No ova or parasites seen. [facility] 10/07/2008 3:17 PM FURNITURE DECALS INSPECTOR 10/07/2008 4:43 PM FURNITURE DECALS INSPECTOR Narrative INTERFACE SYSTEM - 10/14/2008 10:48 AM FURNITURE DECALS INSPECTOR fax to dr rae [facility], [address] [place] [address] Performed by [facility] [address] Madelyn Rae MD MICROBIOLOGY - GENERAL ORDER DIVINE Final Result Performing Organization Address [facility] Phone Number INTERFACE SYSTEM Refer to clinic/hospital department [facility] CLIA# [id number] [address] [place] [address] * STOOL CULTURE (SILVANO,SHIG,CAMPY,BSM423) (10/07/2008 3:17 PM FURNITURE DECALS INSPECTOR) PRELIMINARY REPORT No Salmonella isolated. No Shigella isolated. No Escherichia coli serogroup O157:H7 isolated. [facility] FINAL REPORT No Salmonella isolated. No Shigella isolated. No Escherichia coli serogroup O157:H7 isolated. No Camplylobacter isolated. [facility] 10/07/2008 3:17 PM FURNITURE DECALS INSPECTOR 10/07/2008 4:43 PM FURNITURE DECALS INSPECTOR Narrative INTERFACE SYSTEM - 10/10/2008 7:51 AM FURNITURE DECALS INSPECTOR fax to dr rae Madelyn Rae MD MICROBIOLOGY - GENERAL ORDER DIVINE Final Result Performing Organization Address [facility] Co de Phone Number INTERFACE SYSTEM Refer to clinic/hospital department [facility] CLIA# [id number] [address] [place] [address] * CLOSTRIDIUM DIFFICILE TOXIN (10/07/2008 3:17 PM FURNITURE DECALS INSPECTOR) FINAL REPORT NO Clostridium difficile Toxin A or B detected by EIA. A negative result does not rule out C. difficile associated diarrhea or colitis. [facility] Stool specimen (specimen) 10/07/2008 3:17 PM FURNITURE DECALS INSPECTOR 10/07/2008 4:43 PM FURNITURE DECALS INSPECTOR Narrative INTERFACE SYSTEM - 10/08/2008 3:11 PM FURNITURE DECALS INSPECTOR fax to dr rae Madelyn Rae MD MICROBIOLOGY - GENERAL ORDER DIVINE Final Result Performing Organization Address [facility] de Phone Number INTERFACE SYSTEM Refer to clinic/hospital department [facility] CLIA# [id number] [address] [place] [address] * POC , URINE (10/07/2008 1:40 PM FURNITURE DECALS INSPECTOR) , URINE POC Negative Negative [facility] Urine specimen (specimen) 10/07/2008 1:40 PM FURNITURE DECALS INSPECTOR 10/07/2008 1:40 PM FURNITURE DECALS INSPECTOR Madelyn Rae MD POINT OF CARE TESTING Final Result Performing Organization Address [facility] de Phone Number INTERFACE SYSTEM Refer to clinic/hospital department [facility] CLIA# [id number] [address] [place] [address] documented in this encounter Visit Diagnoses Diagnosis Regional enteritis of unspecified site (CMS/HCC) Regional enteritis of unspecified site documented in this encounter Care Teams Industrial Machine System Technician Relationship Specialty Start Date End Date Tessy Francois DO [address] [place] [address] PCP - General 11/17/15 documented as of this encounter
--- NOTE | 2025-01-08 15:19 | PC.NURSE ---
RN unable to take report at this time due to on RN team.
--- NOTE | 2025-01-08 16:02 | ADMGEN ---
This patient, Gina Cole, was admitted to Medical Room 348-01. Patient/family oriented to hospital policies and general routines including ID bracelet, bed and alarms, visiting hours, pain management, procedures, bathroom and other care routines, personal items, smoking policy, room service/diet, and visiting hours. Information on how to activate the Rapid Response Team has been discussed. Patient/Family are encouraged to report perceived risks to care and to ask questions if they do not understand what they are told or what they should do.
[2025-01-08 17:26] LABS: Troponin I < 0.012 ng/mL (0.000-0.034)
[2025-01-08] MEDS: SPIRONOLACTONE 25 MG TABLET PO (20:28)
[2025-01-08] MEDS: FLUoxetine HCL 20 MG CAPSULE 40 MG PO (20:28)
[2025-01-09] VITALS: PULSE 60
--- NOTE | 2025-01-09 | ECHO_ITS ---
Patient Info Name: Gina Cole Age: 64 years : 1960 Gender: Female Ht: 68 in Wt: 166 lbs BSA: 1.91 m2 HR: 81 bpm BP: 138 / 84 mmHg Heart Rhythm: Sinus Rhythm Technical Quality: Good Exam Date: 01/09/2025 9:33 AM Exam Location: Echo Lab Exam Room: [facility] Patient Status: Inpatient Admit Date: 01/08/2025 Staff Ordering Physician: Rei Siegel APRN Measurer: Magali Cook RDCS Attending Provider: Bert Arriaza MD Referring Physician: Robbin MCKINNEY; Exam Type: CA echo doppler color flow Study Info Indications R07.9 - Chest pain, unspecified Complete two-dimensional, color flow and Doppler transthoracic echocardiogram is performed. Summary 1. Complete two-dimensional, color flow and Doppler transthoracic echocardiogram is performed. 2. Left ventricular chamber dimension is normal. 3. Left ventricular systolic function is normal, estimated at 55-60%. 4. The left ventricular diastolic function is grade I diastolic dysfunction. 5. E/e' 12 is mildly elevated. 6. No pulmonary hypertension, estimated pulmonary arterial systolic pressure is 22 mmHg. Left Ventricle E/e' 12 is mildly elevated. Left ventricular chamber dimension is normal. Left ventricular systolic function is normal, estimated at 55-60%. The left ventricular diastolic function is grade I diastolic dysfunction. Right Ventricle Right ventricular systolic function is normal and with normal TAPSE 2.4 cm. Right ventricular chamber dimension is normal. Left Atria Left atrial chamber dimension is normal. Right Atria Right atrial chamber dimension is normal. Aortic Valve The aortic valve is trileaflet. There is no aortic valve stenosis. There is no aortic valve regurgitation. Pulmonic Valve There is no pulmonic regurgitation. Mitral Valve There is no mitral valve stenosis. There is no mitral valve regurgitation. Tricuspid Valve There is no tricuspid valve regurgitation. No pulmonary hypertension, estimated pulmonary arterial systolic pressure is 22 mmHg. Pericardium/Pleural There is no pericardial effusion. Inferior Vena Cava Normal inferior vena cava with >50% collapse upon inspiration consistent with normal right atrial pressure, 5 mmHg. Aorta The aortic root size at the sinus of Valsalva is normal. Left Ventricular Outflow Tract Name Value Normal LVOT 2D LVOT Diameter 2.4 cm LVOT Doppler LVOT Peak Gradient 2 mmHg LVOT Mean Gradient 1 mmHg LVOT VTI 16 cm LVOT VTI/AV VTI Ratio 0.8 LVOT Stroke Volume 71 ml LVOT CO 4.3 l/min LVOT CI 2.2 l/min/m2 Pulmonic Valve Name Value Normal PV Doppler PV Peak Gradient 2 mmHg Mitral Valve Name Value Normal MV Doppler MV Peak Gradient 3 mmHg MV Mean Gradient 1 mmHg MV Decel [place] 176 cm/s2 MV PHT 91 ms MV Area (PHT) 2.4 cm2 4.0-5.0 MV Area (Cont Eq VTI) 3.7 cm2 MV Regurgitation Doppler MR Peak Gradient 31 mmHg MV Diastolic Function MV E Peak Velocity 55 cm/s MV A Peak Velocity 74 cm/s MV E/A 0.7 MV Decel Time 313 ms MV Annular TDI MV E/e' (Septal) 13.0 <=8.0 MV E/e' (Lateral) 10.7 <=8.0 MV E/e' (Average) 11.9 Tricuspid Valve Name Value Normal TV Regurgitation Doppler TR Peak Velocity 208 cm/s TR Peak Gradient 17 mmHg Estimated PAP/RSVP RA Pressure 5 mmHg <=5 PA Systolic Pressure 22 mmHg <36 RV Systolic Pressure 22 mmHg <36 Aortic Valve Name Value Normal AV Doppler AV Peak Velocity 95 cm/s AV Peak Gradient 4 mmHg AV Mean Gradient 2 mmHg AV VTI 19 cm AV Area (Cont Eq VTI) 3.7 cm2 >=3.0 AV Area (Cont Eq Bassam) 3.5 cm2 AV Regurgitation 2D LVOT Area 4.5 cm2 Ventricles Name Value Normal LV Dimensions 2D/MM IVS Diastolic Thickness (2D) 0.9 cm 0.6-1.0 LVID Diastole (2D) 4.6 cm 3.8-5.2 LVIW Diastolic Thickness (2D) 1.0 cm 0.6-0.9 LVID Systole (2D) 3.2 cm 2.2-3.5 LVOT Diameter 2.4 cm LV Mass (2D Cubed) 149.03 g 67.00-162.00 LV Mass Index (2D Cubed) 78 g/m2 43-95 Relative Wall Thickness (2D) 0.45 LV Fractional Shortening/Ejection Fraction 2D/MM LV Fractional Shortening (2D) 29 % 27-45 LV EF (2D Teicholz) 56 % 54-74 LV Diastolic Volume (4C MOD) 166 ml LV EF (4C MOD) 56 % LV Diastolic Length (4C) 8.7 cm LV Systolic Length (4C) 7.9 cm LV Stroke Volume (4C MOD) 92 ml Atria Name Value Normal LA Dimensions LA Volume (4C A-L) 39 ml RA Dimensions RA Area (4C) 14.6 cm2 <=18.0 Report Signatures
[2025-01-09 04:00] VITALS: PULSE 58
[2025-01-09 05:18] VITALS: BP 138/84; PULSE 68; RESP 16; TEMP 36.9; O2SAT 98
[2025-01-09] MEDS: ACETAMINOPHEN 325 MG TABLET 650 MG PO (05:44)
[2025-01-09] MEDS: LEVOTHYROXINE SODIUM 50 MCG TABLET PO (05:44)
[2025-01-09 05:57] LABS: Basophils Percent Auto 0.6 % (0.2-1.2); Eosinophils Absolute Auto 0.2 K/mm3 (0-0.3); Eosinophils Percent Auto 2.3 % (0-4.4); Hematocrit 47.3 % (37.0-47.0); Hemoglobin 15.4 g/dL (12.0-15.0); Immature Granulocyte Absolute 0.03 K/mm3 (0.00-0.031); Immature Granulocyte Percent A 0.4 % (0-0.5); Lymphocytes Absolute Auto 1.96 K/mm3 (0.9-3.2); Mean Corpuscular HGB Conc 32.6 g/dl (32-36); Mean Corpuscular Hemoglobin 32.4 pg (26-34); Mean Corpuscular Volume 99.4 fl (80-100); Mean Platelet Volume 9.7 fl (7.4-10.4); Monocytes Absolute Auto 0.6 K/mm3 (0.1-0.6); Neutrophils Absolute Auto 4.3 K/mm3 (1.3-6.7); Neutrophils Percent Auto 60.7 % (45.5-73.1); Platelet Count Result 373 k/mm3 (150-375); Red Blood Count 4.76 M/mm3 (4.2-5.4); Red Cell Distribution Width 12.3 % (11.5-14.5)
[2025-01-09 06:10] LABS: Alanine Aminotransferase 21 U/L (6-35); Albumin Level 4.2 g/dL (3.5-5.1); Alkaline Phosphatase 100 U/L (38-126); Anion Gap 10 mmol/L (4-12); Aspartate Amino Transferase 27 U/L (14-36); Bilirubin,Total 0.9 mg/dL (0.2-1.3); Blood Urea Nitrogen 9 mg/dL (7-17); Calcium 9.6 mg/dL (8.4-10.2); Carbon Dioxide 30 mmol/L (22-30); Chloride 99 mmol/L (98-107); Estimated CRCL calculation 61 ml/min; Estimated Glomerular Filt Rate > 60; Glucose 111 mg/dL (65-110); Potassium 3.4 mmol/L (3.4-5.0); Sodium 139 mmol/L (137-145)
--- NOTE | 2025-01-09 07:00 | ECG_ITS ---
Test Date: 2025-01-09 07:45:58 Measurements Intervals [place] Rate: 62 P: 29 CA: 147 QRS: -6 QRSD: 109 T: 37 QT: 436 QTc: 446 Interpretive Statements SINUS RHYTHM INCOMPLETE RIGHT BUNDLE BRANCH BLOCK DELAYED PRECORDIAL R/S TRANSITION ST DEVIATION AND MODERATE T-WAVE ABNORMALITY, CONSIDER ANTERIOR ISCHEMIA ABNORMAL ECG Compared to ECG 01/08/2025 14:00:37 HEART RATE HAS INCREASED Electronically Signed On 01-09-2025 10:47:20 [employer] by Dell Dunham D.O.
[2025-01-09 08:00] VITALS: PULSE 64
[2025-01-09] MEDS: SPIRONOLACTONE 25 MG TABLET PO (08:48)
[2025-01-09] MEDS: ASPIRIN 81 MG CHEWABLE TABLET PO (08:48)
[2025-01-09] MEDS: ENOXAPARIN 40 MG/0.4 ML SYRINGE SUB-Q (08:49)
[2025-01-09 12:00] VITALS: PULSE 68
--- NOTE | 2025-01-09 12:00 | PM.DS ---
DS: Admitting Diagnosis Discharge Date 01/10/2025 Admitting Diagnosis Headache, chest discomfort, abnormal EKG DS: Discharge Diagnosis Discharge Diagnosis (1) Migraine headache: Qualifiers: Intractability: not intractable Migraine type: unspecified Status migrainosus presence: without status migrainosus Qualified Code(s): G43.909 - Migraine, unspecified, not intractable, without status migrainosus Code(s): G43.909 - Migraine, unspecified, not intractable, without status migrainosus Status: Acute Assessment and Plan: -Chief complaint today and when she was seen in ER earlier in the week -Ongoing headache for 2 weeks, waxes and wanes intensity -Headache relieved in ER with IV medications - no VILLATORO today pt wants to go home (2) Chest pain: Qualifiers: Chest pain type: unspecified Qualified Code(s): R07.9 - Chest pain, unspecified Code(s): R07.9 - Chest pain, unspecified Status: Acute Assessment and Plan: -Chest pain described as intermittent shortness of breath and pressure that radiates to left neck and clavicle area over the past several weeks -Worse with activity such as climbing stairs -Not present today -Abnormal EKG noted at PCP office so patient sent to ER (V3 and V4 ST and T wave abnormalities) -Abnormalities seemingly worse on EKG here vs at clinic and now involve Lead 1, aVL, V3, V4, V5 and Leads 3 and aVF -Aspirin 81 mg daily unless Cardiology stops this, received 324 mg in ER today - echo reviewed with pt pt wants to have lexiscan later (3) Abnormal EKG: Code(s): R94.31 - Abnormal electrocardiogram [ECG] [EKG] Status: Acute Assessment and Plan: -Abnormal EKG in clinic setting, sent to ER -Cardiology stated patient should be admit rather than outpatient referral -Ordered Echocardiogram and NM stress test -Stress not able to get patient today, will not be available until Saturday -Patient had NM tests before, unable to complete treadmilll stress - pt will see cardiology later and decide on lexiscan echo results show good EF mild diastolic CHF (4) Hypothyroidism (acquired): Code(s): E03.9 - Hypothyroidism, unspecified Status: Acute Assessment and Plan: -Continue home medication (5) Crohn disease: Qualifiers: Digestive disease complication type: without complication Gastrointestinal tract location: unspecified location Qualified Code(s): K50.90 - Crohn's disease, unspecified, without complications Code(s): K50.90 - Crohn's disease, unspecified, without complications Status: Chronic Assessment and Plan: -Noted history, no current flare DS: Summary Hospital Course Hospital Course: 64 year old female patient seen at Primary Care Provider's office today for headache ongoing for the past 2 weeks. She reports the pain comes and goes in intensity. She was seen in ER a few days ago and treated for headache. It returned so patient went to see PCP. She reported that she had chest discomfort going to left side of neck more like shortness of breath than actual pain that has been intermittent and associated with activity like going up stairs that makes it worse. PCP did EKG and found some ST/T wave abnormalities in V3-V4 concerning for ischemia. Patient was sent to ER from the office for further evaluation. In ER patient received IV migraine cocktail with relief of headache. She had normal CXR and normal Head CT as well. Labs show normal troponin x3 with elevated ProBNP of 806. Patient reports she was in [facility] for 3 years and had a full cardiac workup while there and she had negative workup in [id number] at [facility]. Cardiology was consulted from ER and will see patient tomorrow. Heart score of 5 given patient's age family history, personal medical history and EKG findings. Time Spent with Patient Time attestation: Total time spent providing and/or coordinating discharge services:55 minutes on day of dc Exam Narrative: GENERAL: Well-appearing, well-nourished, and in no acute distress. HEAD: Normocephalic, atraumatic. EYES: PERRLA and EOMI. ENT: Nares clear, no rhinorrhea or epistaxis. Mucous membranes moist. NECK: Supple. CHEST: Clear to auscultation. No respiratory distress. HEART: Regular rate and rhythm. No murmur heard. Normal peripheral pulses. ABDOMEN: Soft, nontender, nondistended, normal active bowel sounds. EXTREMITIES: Normal range of motion. No edema. SKIN: Warm, dry, no rash. NEURO: No focal deficits. Alert and oriented x3. DS: Data Data Completed and Pending Labs on day of discharge: Labs from last 24 hours 01/09/25 01/08/25 01/08/25 05:29 16:57 13:52 WBC 7.0 RBC 4.76 Hgb 15.4 H Hct 47.3 H MCV 99.4 MCH 32.4 MCHC 32.6 RDW 12.3 Plt Count 373 MPV 9.7 Immature Gran % (Auto) 0.4 Neut % (Auto) 60.7 Lymph % (Auto) 28.0 [place] % (Auto) 8.0 Eos % (Auto) 2.3 Baso % (Auto) 0.6 Lymph # (Auto) 1.96 [place] # (Auto) 0.6 Eos # (Auto) 0.2 Baso # (Auto) 0.0 Abs Immat Gran (auto) 0.03 Absolute Neuts (auto) 4.3 Absolute Nucleated RBC 0.000 Nucleated RBC % 0.0 PT INR APTT D-Dimer Sodium 139 Potassium 3.4 Chloride 99 Carbon Dioxide 30 Anion Gap 10 BUN 9 Creatinine 0.84 Estim Creat Clear Calc 61 Estimated GFR > 60 Glucose 111 H Calcium 9.6 Magnesium 2.0 Total Bilirubin 0.9 AST 27 ALT 21 Alkaline Phosphatase 100 Troponin I < 0.012 < 0.012 Total Protein 8.0 Albumin 4.2 TSH (Reflex) 3.740 01/08/25 01/08/25 10:55 10:55 WBC RBC Hgb Hct MCV MCH MCHC RDW Plt Count MPV Immature Gran % (Auto) Neut % (Auto) Lymph % (Auto) [place] % (Auto) Eos % (Auto) Baso % (Auto) Lymph # (Auto) [place] # (Auto) Eos # (Auto) Baso # (Auto) Abs Immat Gran (auto) Absolute Neuts (auto) Absolute Nucleated RBC Nucleated RBC % PT 12.6 INR 0.9 APTT 27.4 D-Dimer Cancelled 0.27 Sodium Potassium Chloride Carbon Dioxide Anion Gap BUN Creatinine Estim Creat Clear Calc Estimated GFR Glucose Calcium Magnesium Total Bilirubin AST ALT Alkaline Phosphatase Troponin I Total Protein Albumin TSH (Reflex) Discharge Plan Discharge Attending physician on discharge: Sole Matos Consulting providers: Camilo Ogden Discharging Clinician: Sole Matos Anticipated Discharge Date/Time: 01/09/25 11:57 Patient Disposition: Home, Self-Care Activity: as tolerated Diet: regular Patient Instructions: Antibiotic Form, Aspirin (By mouth), Chest Pain (DC) Patient Language: Togolese Stand Alone Forms: General Discharge Information Follow-up/Referrals: Dell Dunham DO [Physician] - (follow up in 1 -2 weeks for further discussion and lexiscan order) Discharge Medications: New aspirin [Children's Aspirin] 81 mg Tablet,Chewable 81 mg PO DAILY@0800 Qty: 30 0RF Continued propranolol 10 mg tablet 10 mg PO TID PRN (Reason: anxiety) Allergy injection QMWF fluoxetine 40 mg capsule 40 mg PO QHS spironolactone 25 mg tablet See Rx Instructions .ROUTE .COMPLEX Qty: 180 3RF Dose Instruction: TAKE 1 TABLET TWICE A DAY Rx Instructions: TAKE 1 TABLET TWICE A DAY esomeprazole magnesium [Nexium] 40 mg capsule,delayed release(DR/EC) 40 mg PO DAILY 90 Days Qty: 90 3RF levothyroxine 50 mcg tablet 50 mcg PO DAILY Qty: 90 1RF Date of admission: 01/08/25 13:43 Primary Care Provider: Kirsten Eaton Admitting Provider: Bert Arriaza Attending physician on admission: Bert Arriaza Condition: Stable
== END 2025-01-09 12:25 | disposition home or self-care (01) ==
LOC: ANHED 12:40 → ANH3MED 14:44 → ANH3MEDSUR 14:44
PROVIDERS: Emergency Medicine; Nurse Practitioner; Admitting Provider Internal Medicine; Emergency Provider Physician Assistant; PCP Nurse Practitioner; Visit Provider Family Medicine
DX: G43.909 Migraine, unspecified, not intractable, without status migrainosus (principal); R07.9 Chest pain, unspecified; R94.31 Abnormal electrocardiogram [ECG] [EKG]; E03.9 Hypothyroidism, unspecified; K50.90 Crohn's disease, unspecified, without complications; K21.9 Gastro-esophageal reflux disease without esophagitis; Z79.899 Other long term (current) drug therapy; Z87.891 Personal history of nicotine dependence
CPT/HCPCS: 36415; 70450; 71046; 80053; 83690; 83735; 83880; 84443; 84484; 85025; 85380; 85610; 85730; 93005; 93306; 96372; 96374; 96375; 96376; 99285; A9270; G0378; J0780; J1200; J1650

== ENCOUNTER 2025-01-12 22:10 | Emergency (ER) | payer BC, SELFPAY ==
--- OUTSIDE RECORDS SUMMARY | 2025-01-12 22:13 | XMS_ITS | Encounter Summary ---
[facility] Organization [facility] Address [address] [place] [address] Care Team Providers Care Commercial Driver'S License Driver Name Role Phone Priscila Tessydasha Mchugh Primary Care Provider [phone] Encounter Details Date Type Department Care Team (Latest Contact Info) Description 01/26/2009 Outpatient Historical HIS [facility] Sujatha Ledesma MD [address] [place] [address] Regional Enteritis of Unspecified Site (CMS/HCC) Social History Tobacco Use Types Packs/Day Years Used Date Smoking Tobacco: Never Assessed Comments Unknown Sex and Gender Information Value Date Recorded Sex Assigned at Not on file Legal Sex Female 5:28 AM [employer]IG[employer] PACK[employer] Gender Identity Not on file Sexual Orientation Not on file documented as of this encounter Plan of Treatment Not on file documented as of this encounter Procedures Procedure Name Priority Date/Time Associated Diagnosis Comments CBC WITH DIFFERENTIAL Routine 01/26/2009 4:41 PM [employer] documented in this encounter Results * (ABNORMAL) CBC WITH DIFFERENTIAL (01/26/2009 4:41 PM WEIG[employer] PACKING) RBC 4.32 3.90 - 4.90 M/uL [facility] MCHC 33.2 31.5 - 35.5 % [facility] MCV 97.0 82.0 - 99.0 fL [facility] PLATELETS 317 140 - 350 K/uL [facility] HEMOGLOBIN 13.9 11.8 - 14.8 g/dL [facility] RDW 13.2 11.5 - 14.5 % [facility] WBC 12.1(H) 4.0 - 9.8 K/uL [facility] MCH 32.2 27.2 - 32.6 pg [facility] MPV 10.5 9.3 - 12.4 fL [facility] HEMATOCRIT 41.9 35.5 - 44.0 % [facility] RDW-STDEV 46.5 37.1 - 48.7 fL [facility] MONOCYTE ABSOLUTE 0.82 0.10 - 1.30 K/uL [facility] LYMPHOCYTES 16 16 - 45 % [facility] NEUTROPHIL ABSOLUTE 9.16(H) 1.90 - 7.00 K/uL [facility] NEUTROPHILS 76(H) 45 - 70 % [facility] EOSINOPHILS 1 0 - 7 % [facility] EOSINOPHIL ABSOLUTE 0.06 0.00 - 0.70 K/uL [facility] LYMPHOCYTE ABSOLUTE 1.96 0.70 - 4.50 K/uL [facility] BASOPHILS 0 0 - 2 % [facility] BASOPHILS ABSOLUTE 0.05 0.00 - 0.20 K/uL [facility] MONOCYTES 7 3 - 13 % [facility] Blood specimen (specimen) 01/26/2009 4:41 PM [employer] P[employer]ING 01/26/2009 5:07 PM [employer]IGHER PACKING us Sujatha Prado MD HEMATOLOGY ORDERABLES Edited INTERFACE SYSTEM Refer to clinic/hospital department [facility] CLIA# [id number] [address] [place] [address] documented in this encounter Visit Diagnoses Diagnosis Regional enteritis of unspecified site (CMS/HCC) Regional enteritis of unspecified site documented in this encounter Care Teams Commercial Driver'S License Driver Relationship Specialty Start Date End Date Tessy Francois DO [address] [place] [id number] PCP - General 11/17/15 documented as of this encounter
--- OUTSIDE RECORDS SUMMARY | 2025-01-12 22:13 | XMS_ITS | Encounter Summary ---
Author Organization [facility] Address [address] [place] [address] Care Team Providers Care Base Remover Name Role Phone Priscila Tessydasha Mchugh Primary Care Provider [phone] Encounter Details Date Type Department Care Team (Latest Contact Info) Description 04/18/2009 Outpatient Historical HIS [facility] Sujatha Ledesma MD [address] [place] [address] Regional Enteritis of Unspecified Site (CMS/HCC) Social History Tobacco Use Types Packs/Day Years Used Date Smoking Tobacco: Never Assessed Comments Unknown Sex and Gender Information Value Date Recorded Sex Assigned at Not on file Legal Sex Female 5:28 AM [employer]NALY[employer] INTER[employer] Gender Identity Not on file Sexual Orientation [...] CDT) GLUCOSE 151(H) 65 - 99 mg/dL [facility] AST 17 12 - 32 U/L [facility] BUN 11 6 - 20 mg/dL [facility] CALCIUM 9.2 8.6 - 10.2 mg/dL [facility] CHLORIDE 102 96 - 108 mmol/L [facility] ALBUMIN 4.1 3.4 - 4.8 g/dL [facility] CREATININE 0.67 0.51 - 0.95 mg/dL [facility] SODIUM 138 135 - 145 mmol/L [facility] ALT 14 0 - 31 U/L [facility] ALKALINE PHOSPHATASE 61 35 - 104 U/L [facility] BILIRUBIN TOTAL 0.4 0.2 - 1.0 mg/dL [facility] CO2 25 22 - 30 mmol/L [facility] TOTAL PROTEIN 7.0 6.3 - 8.6 g/dL [facility] POTASSIUM 3.6 3.5 - 4.9 mmol/L [facility] GFR, >60 >=60 mL/min/1. 7 sq meter [facility] GFR >60 >=60 mL/min/1. 7 sq meter [facility] Comment: Modification of Diet in Renal Disease (MDRD) study formula. Estimated GFR rate interpretative information for both Americans and non- Americans is available on the [facility] Intranet at: [email or web address] Select: Lab Policies and Procedures Select: Reference Ranges - GFR Blood specimen (specimen) 04/18/2009 1:13 PM CDT 04/18/2009 2:00 PM CDT Sujatha Prado MD CHEMISTRY ORDERABLES Edited INTERFACE SYSTEM Refer to clinic/hospital department [facility] CLIA# [id number] [address] [place] [address] * (ABNORMAL) CBC WITH DIFFERENTIAL (04/18/2009 1:13 PM CDT) MCV 101.5(H) 82.0 - 99.0 fL [facility] PLATELETS 319 140 - 350 K/uL [facility] HEMOGLOBIN 13.3 11.8 - 14.8 g/dL [facility] RDW 14.1 11.5 - 14.5 % [facility] WBC 7.2 4.0 - 9.8 K/uL [facility] MCH 33.9(H) 27.2 - 32.6 pg [facility] MPV 10.3 9.3 - 12.4 fL [facility] HEMATOCRIT 39.8 35.5 - 44.0 % [facility] RDW-STDEV 52.2(H) 37.1 - 48.7 fL [facility] RBC 3.92 3.90 - 4.90 M/uL [facility] MCHC 33.4 31.5 - 35.5 % [facility] EOSINOPHILS 1 0 - 7 % [facility] EOSINOPHIL ABSOLUTE 0.10 0.00 - 0.70 K/uL [facility] LYMPHOCYTES 21 16 - 45 % [facility] LYMPHOCYTE ABSOLUTE 1.50 0.70 - 4.50 K/uL [facility] BASOPHILS 0 0 - 2 % [facility] BASOPHILS ABSOLUTE 0.03 0.00 - 0.20 K/uL [facility] MONOCYTES 5 3 - 13 % [facility] MONOCYTE ABSOLUTE 0.37 0.10 - 1.30 K/uL [facility] NEUTROPHILS 72(H) 45 - 70 % [facility] NEUTROPHIL ABSOLUTE 5.15 1.90 - 7.00 K/uL [facility] Blood specimen (specimen) 04/18/2009 1:13 PM CDT 04/18/2009 1:53 PM CDT us Sujatha Prado MD HEMATOLOGY ORDERABLES Edited INTERFACE SYSTEM Refer to clinic/hospital department [facility] CLIA# [id number] [address] [place] [address] documented in this encounter Visit Diagnoses Diagnosis Regional enteritis of unspecified site (CMS/HCC) Regional enteritis of unspecified site documented in this encounter Care Teams Base Remover Relationship Specialty Start Date End Date Tessy Francois DO [address] [place] [address] PCP - General 11/17/15 documented as of this encounter
--- OUTSIDE RECORDS SUMMARY | 2025-01-12 22:13 | XMS_ITS | Patient Health Record ---
Author Organization [facility] Address [address] [place] [address] Care Team Providers Care Associate Merchandise Planner Name Role Phone Chalo GOMEZ, Brent Unavailable [phone] ALLERGIES Allergen (clinical drug ingredient) Drug/Non Drug Allergy documented on EMR Reaction Allergy Type Onset Date Status Keflex Unknown Drug Allergy Active Hydrocodone Bitartrate Unknown Drug Allergy Active REASON FOR REFERRAL No Information MEDICATIONS Medication SIG (Take, Route, Frequency, Duration) Notes Start Date End Date Status Spironolactone 50 MG (Prior Auth: Rx Ref#:[id number]) Oral for 30 Active dilTIAZem HCl ER Coated Beads 240 MG (Prior Auth: Rx Ref#:[id number]) Oral for 30 Active Fluoxetine Active Delzicol Active Crestor Active Imuran Active IMMUNIZATIONS Vaccine Route Administration Date Status Comme nts Influenza Unknown 09/02/2018 Administered pneumoccocal Unknown 07/03/2019 Refused SOCIAL HISTORY Tobacco Use: Social History Observation Description Date Details (start date - stop date) Current Smoker NA - NA Sex Assigned At : Social History Observation Description Sex Assigned At Unknown Tobacco Use: Question Answer Notes Patient is a: current smoker Alcohol screening: Question Answer Notes Did you have a drink contain ing alcohol in the past year? Yes How often did you have a dri nk containing alcohol in the past year? Monthly or less (1 point) How many drinks did you have on a typical day when you were drinking in the past year? 3 or 4 (1 point) Points 2 Interpretation Negative PROBLEMS Problem Type ICD Code Onset Dates Problem Status W/U Status Risk SNOMED Code Notes Problem Primary osteoarthrit is, right ankle and foot (M19.071) Active confirmed [id number] PLAN OF TREATMENT No Information Insurance Providers Payer Name Payer Address Payer Phone Subscriber Number Group Number Insured Name Patient Relationship to Insured Coverage Start Date Coverage End Date [facility] [address] [place] [address] [id number] Spike Cole Spouse - patient is the spouse of the insured MEDICAL (GENERAL) HISTORY Medical History History ICD Code Crohn's Disease Arthritis hyperlipidemia kidney Surgical History Surgery Date(Month/Year) shoulder hysterectomy cyst removed, right middle finger section knee surgery foot, right-bone spur and cyst removal
--- OUTSIDE RECORDS SUMMARY | 2025-01-12 22:13 | XMS_ITS | Clinical Summary ---
Author Organization [facility] Administrative Offices Address [address] [place] [address] Care Team Providers Care Outbound Sales Agent Name Role Phone Tessy Francois DO Primary Care Provider [phone] Allergies Active Allergy Reactions Criticality Noted Date Comments Cephalexin Anaphylaxis High 02/26/2013 Ciprofloxacin Unknown 02/26/2013 Hydrocodone Itching Low 04/01/2014 Unclassified Drug Seizure High 05/16/2017 spirolactine Medications FLUoxetine (PROZAC) 20 mg Oral tablet Take 1 Tab by mouth daily. 30 Tab 11 3 Active azaTHIOprine (IMURAN) 50 mg Oral tablet 3 Active NASCOBAL 500 mcg Both Nostril [place] 3 Active DELZICOL 400 mg Oral CpDR [...] migh t be different from the original. Resident Care Technician - Dr Shashank Rodriguez Problem Noted Date [...] on file Legal Sex Female 5:28 AM [employer] Gender Identity Not on file Sexual Orientation Not on file Occupation Industry Job Start Date Job End Date Not on file Not on file Not on file Not on file Last Filed Vital Signs Vital Sign Reading Time Taken Comments Blood Pressure 136/72 12/30/2017 8:37 AM [employer] Pulse 71 05/16/2017 10:45 AM CDT Temperature - - Respiratory Rate 17 08/11/2013 11:39 AM CDT Oxygen Saturation - - Inhaled Oxygen Concentration - - Weight 73.5 kg (162 lb) 12/30/2017 8:37 AM [employer] Height 171.5 cm (5' 7.5 ) 12/30/2017 8:37 AM [employer] Body Mass Index 25 12/30/2017 8:37 AM [employer] Plan of Treatment Health Maintenance Due Date [...] OR WO CAD Routine 01/01/2018 10:27 AM [employer] Nipple discharge, bloody CERV/VAG CYTO SCREEN PAP RLFX HPV Routine 05/16/2017 11:14 AM CDT Encounter for gynecological examination without abnormal finding POC OCCULT BLOOD 1 CARD Routine 04/01/2014 1:30 PM CDT Routine gynecological examination from Last 3 Months or Most Recently Relevant to Health Maintenance Results * MAMMO DIAGNOSTIC BILATERAL W OR WO CAD (01/01/2018 10:27 AM [employer]) Anatomical Region Laterality Modality Breast Bilateral Mammography 01/01/2018 10:2 7 AM [employer] Impressions 01/01/2018 2:29 PM [employer] IMPRESSION: Bilateral breast implants. Negative and stable bilateral diagnostic mammogram. Mildly dilated ducts and occasional cysts, otherwise negative bilateral subareolar breast sonogram. If the bloody nipple discharge persists, recommend further evaluation with breast MRI. Overall Assessment: BI-RADS Category: 2. Benign finding(s). Dictation Location: [facility] 01/01/2018 2:29 PM [employer] BILATERAL DIAGNOSTIC DIGITAL IMPLANT MAMMOGRAMS WITH CAD [...] 2. Benign finding(s). Dictation Location: [facility] Danny Chan MD MAMMO ORDERABLES Final [...] has been evaluated with computer assisted technology. MASONRY SUPERVISOR: SEE COMMENT 2016 10:31 AM CDT [facility] Comment: TMK, CT(ASCP) CT screening location: [place] [address] [address] [place] [address] Genital SWAB OF ENDOCERVIX / Unknown Collection / Unknown 05/16/2017 11:14 AM CDT 05/16/2017 8:09 PM CDT Narrative [facility] - 05/23/2017 10:31 AM CDT Performing Organization Information: Site ID: [place] [facility] Address: [facility] Administration [place] [address] Director: Chad Lemos MD Rock Bullock MD PATHOLOGY/CYTOLOGY ORDERABLES Fi nal Result [facility] * POC OCCULT BLOOD 1 CARD (04/01/2014 1:30 PM CDT) OCCULT BLOOD #1 Negative Negative [facility] Stool specimen (specimen) 04/01/2014 1:30 PM CDT us Rock Bullock MD POINT OF CARE TESTING Final Resu lt [facility] from Last 3 Months or Most Recently Relevant to Health Maintenance [place] [address] [place] [id number] Member Subscriber Plan / Payer (Ef fective 2021-Present) Name:Gina Cole Relation to Subscriber:Spouse Name:SHAWNEE COLE Date of :1963 (Home) (Work) Address: [address] [place] [address] Payer ID:[id number] (NAIC) Type:PPO Address: [facility] [id number] [place] [id number] Care Teams Outbound Sales Agent Relationship Specialty Start Date End Date Tessy Francois DO [address] [place] [address] PCP - General 11/17/15
--- OUTSIDE RECORDS SUMMARY | 2025-01-12 22:13 | XMS_ITS | Patient Health Record ---
Author Organization [facility] Address [address] [place] [address] Care Team Providers Care Vacation Sales Advisor Name Role Phone Kirsten Eaton APN Primary Care Provider Unavailab Max Gallardo Unavailable [phone] Allergies Allergen (clinical drug ingredient) Drug/Non Drug Allergy documented on EMR Reaction Allergy Type Onset Date Status Soy Balance Unknown Drug Allergy Activ e Eggs or Egg-derived Products Unknown Drug Allergy Active Reason For Referral No Information Medications Medication SIG (Take, Route, Frequency, Duration) Notes Start Date End Date Status Insulin Syringe 31G X 5/16 1 ML USE TO INJECT 6 TIMES A WEEK PER ALLERGY INJECTIONS for 116 Days Active Esomeprazole Magnesium 40 MG Oral for 90 Days Active Spironolactone 25 MG Oral for 90 Days Active Synthroid 50 MCG Oral for 90 Days Pt is taking a different brand. Active Prebiotic Product Ac tive NexIUM 40 MG 1 capsule Orally Once a day Active hydrOXYzine Pamoate 25 MG 1 capsule Orally three times a day for 30 days As needed 09/17/2024 Active Hair Skin & Nails Ac tive FLUoxetine HCl 40 MG 1 capsule Oral Once a day for 30 days Active Social History Tobacco Use: Social History Observation Description Date Details (start date - stop date) Former Smoker 03/02/2013 - NA Sex Assigned At : Social History Observation Description Sex Assigned At Female Tobacco Control (Standard) Question Answer Notes Tobacco use: Former smoker When did you start smoking? 03/02/2013 How long has it been since you last smoked? 5-10 years Problems Problem Type SNOMED Code ICD Code Onset Dates Problem Status W/U Status Risk Notes Problem 63315981 MAYANK (generalized anxiety disorder) (F41.1) Active confirmed Problem 34811142 Severe episode of recurrent major depressive disorder, without psychotic features (F33.2) Active confirmed Problem [id number] MDD (major depressive disorder), recurrent episode, moderate (F33.1) Active confirmed Problem 762984286 Marijuana use (F12.90) Active confirmed Problem 040430 Alcohol use (Z78.9) Active confirmed Vital Signs Heart Rate 82 /min 09/17/2024 Blood pressure diastolic 91 mm Hg 09/17/2024 Weight-kg 78.74 kg 09/17/2024 Blood pressure systolic 135 mm Hg 09/17/2024 Weight 173.6 lbs 09/17/2024 Encounters Encounter Location Date Provider Diagnosis [place] [address] [id number] 10/19/2024 Max Clubb [place] [place] [address] [id number] 08/20/2024 Max Clubb Severe episode of recurrent major depressive disorder, without psychotic features F33.2 ; MAYANK (generalized anxiety disorder) F41.1 ; Marijuana use F12.90 and Alcohol use Z78.9 [place] [place] [address] [id number] 09/17/2024 Max Clubb MAYANK (generalized anxiety disorder) F41.1 ; MDD (major depressive disorder), recurrent episode, moderate F33.1 ; Alcohol use Z78.9 and Marijuana use F12.90 [facility] [address] [address] 12/24/2024 Max Clubb Assessments Encounter Date Diagnosis (ICD Code) Assessment Notes Treatment Notes Treatment Clinical Notes Section Notes 08/20/2024 MAYANK (generalized anxiety disorder) (ICD-10 - F41.1) 1. Major Depressive Disorder - Patient reports history of depression and mood swings. - Currently on fluoxetine 20mg daily. - Recent thoughts of self-harm but no active suicidal ideation past week. - Plan: a. Increase fluoxetine to 40mg daily (20mg tablets twice a day). b. Follow up in 1 month to assess increased dosage response. c. Patient reports depression since childhood, possibly related to family history. d. Provided crisis hotline information. 2. Anxiety - Patient reports improved anxiety recently. - Plan: a. Prescribe propranolol 10mg three times daily as needed for irritability/anxi ety. b. Monitor heart rate and avoid if <60bpm. c. Educated on potential side effects like lightheadedness, cold extremities. d. Discussed using propranolol for situational anxiety/irritabil ity. 3. Crohn's Disease - Patient reports Crohn's under control per recent tests showing no issues. - Plan: Continue current management and monitoring. - Educated on gut health-mood connection, particularly with Crohn's. 4. Allergies - Currently receiving allergy shots, last dose yesterday. - Plan: Continue allergy shots as prescribed. 5. Sleep Disturbances - Patient reports difficulty falling asleep but also sleeping too much. - Plan: a. Encourage good sleep hygiene. b. Consider trying magnesium supplement. c. No sleep aid prescribed due to excessive time in bed per patient. 6. Medication Management - Continue: Spironolactone 25mg, Synthroid 50mcg, prebiotic, Nexium 40mg, hair/skin/nails supplement. - Discontinue: cholesterol powder, gabapentin, hydrocodone, valacyclovir, diazepam. - Patient receives fluoxetine through [facility]. 7. Patient Education - Provided crisis hotline information. - Encouraged open communication with support system and seeking help if needed. - Discussed alcohol/marijuana impact on depression/anxiet y. - Educated on medical nature of depression/anxiet y, not life circumstance reflection. 8. Substance use She reports drinking alcohol fairly often but has recently cut back occasionally uses marijuana plan -advised to reduce substance use -pt reported that she does not need assistance at this time -pt acknowledges that substance use may be detrimental to her depression and medication metabolism. Follow up in 1 month to assess increased fluoxetine response and propranolol use. Patient can walk in before if needed. 08/20/2024 Severe episode of recurrent major depressive disorder, without psychotic features (ICD-10 - F33.2) 1. Major Depressive Disorder - Patient reports history of depression and mood swings. - Currently on fluoxetine 20mg daily. - Recent thoughts of self-harm but no active suicidal ideation past week. - Plan: a. Increase fluoxetine to 40mg daily (20mg tablets twice a day). b. Follow up in 1 month to assess increased dosage response. c. Patient reports depression since childhood, possibly related to family history. d. Provided crisis hotline information. 2. Anxiety - Patient reports improved anxiety recently. - Plan: a. Prescribe propranolol 10mg three times daily as needed for irritability/anxi ety. b. Monitor heart rate and avoid if <60bpm. c. Educated on potential side effects like lightheadedness, cold extremities. d. Discussed using propranolol for situational anxiety/irritabil ity. 3. Crohn's Disease - Patient reports Crohn's under control per recent tests showing no issues. - Plan: Continue current management and monitoring. - Educated on gut health-mood connection, particularly with Crohn's. 4. Allergies - Currently receiving allergy shots, last dose yesterday. - Plan: Continue allergy shots as prescribed. 5. Sleep Disturbances - Patient reports difficulty falling asleep but also sleeping too much. - Plan: a. Encourage good sleep hygiene. b. Consider trying magnesium supplement. c. No sleep aid prescribed due to excessive time in bed per patient. 6. Medication Management - Continue: Spironolactone 25mg, Synthroid 50mcg, prebiotic, Nexium 40mg, hair/skin/nails supplement. - Discontinue: cholesterol powder, gabapentin, hydrocodone, valacyclovir, diazepam. - Patient receives fluoxetine through [facility]. 7. Patient Education - Provided crisis hotline information. - Encouraged open communication with support system and seeking help if needed. - Discussed alcohol/marijuana impact on depression/anxiet y. - Educated on medical nature of depression/anxiet y, not life circumstance reflection. 8. Substance use She reports drinking alcohol fairly often but has recently cut back occasionally uses marijuana plan -advised to reduce substance use -pt reported that she does not need assistance at this time -pt acknowledges that substance use may be detrimental to her depression and medication metabolism. Follow up in 1 month to assess increased fluoxetine response and propranolol use. Patient can walk in before if needed. 09/17/2024 MAYANK (generalized anxiety disorder) (ICD-10 - F41.1) Patient had reduction in suicidal ideation and/or behavior upon follow-up assessment within 120 days of index assessment (M1357) 1. Major Depressive Disorder - Patient reports significant improvement in depressive symptoms, rating it as 2-3 out of 10. - Continue Fluoxetine 40 mg daily. Refill prescription as needed. - Follow up in one month to assess stability and consider transitioning to primary care provider for refills. 2. Anxiety - Patient reports significant improvement in anxiety symptoms. - Discontinue Propranolol due to concerns about interaction with EpiPen. - Switch to Hydroxyzine as needed for anxiety and nausea, up to three times a day. - Educate patient on potential side effects and precautions with Hydroxyzine. - Avoid taking Hydroxyzine with other allergy medications. 3. Sleep - Patient reports improved sleep quality. - No intervention needed at this time. Continue to monitor. 4. Concentration - Patient reports occasional difficulty concentrating but overall improvement. - No intervention needed at this time. Continue to monitor. 5. Substance Use - Patient reports cutting back on marijuana use and alcohol consumption. - Encourage continued reduction in substance use and promote healthy coping strategies. 6. Stress Management - Patient has experienced significant stressors in the past, including the deaths of mother, sister, and father in quick succession. - Patient is working on managing stress through social media reduction and other coping strategies. - Encourage continued use of healthy coping mechanisms and stress reduction techniques. 7. Additional Concerns - Patient reports occasional episodes of severe nausea, possibly stress-related. - Consider monitoring thyroid medication, as patient suspects it may be contributing to symptoms. - Hydroxyzine prescribed may also help with nausea management. 8. Follow-up - Schedule a follow-up appointment in one month to assess stability and consider transitioning to primary care provider for ongoing management. 09/17/2024 MDD (major depressive disorder), recurrent episode, moderate (ICD-10 - F33.1) Assessment and plan reviewed with patient Call for problems with medication, side effects or need for dosage change Compliance issues reviewed Discussed the risks/benefits of this medication Discussed medication side effects Return if symptoms worsen Treatment options reviewed. discussed that it can take weeks to see full therapeutic effects of psychotropic medications. discussed when to seek emergency services. discussed crisis prevention hotline [phone]. Patient had reduction in suicidal ideation and/or behavior upon follow-up assessment within 120 days of index assessment (M1357) 1. Major Depressive Disorder - Patient reports significant improvement in depressive symptoms, rating it as 2-3 out of 10. - Continue Fluoxetine 40 mg daily. Refill prescription as needed. - Follow up in one month to assess stability and consider transitioning to primary care provider for refills. 2. Anxiety - Patient reports significant improvement in anxiety symptoms. - Discontinue Propranolol due to concerns about interaction with EpiPen. - Switch to Hydroxyzine as needed for anxiety and nausea, up to three times a day. - Educate patient on potential side effects and precautions with Hydroxyzine. - Avoid taking Hydroxyzine with other allergy medications. 3. Sleep - Patient reports improved sleep quality. - No intervention needed at this time. Continue to monitor. 4. Concentration - Patient reports occasional difficulty concentrating but overall improvement. - No intervention needed at this time. Continue to monitor. 5. Substance Use - Patient reports cutting back on marijuana use and alcohol consumption. - Encourage continued reduction in substance use and promote healthy coping strategies. 6. Stress Management - Patient has experienced significant stressors in the past, including the deaths of mother, sister, and father in quick succession. - Patient is working on managing stress through social media reduction and other coping strategies. - Encourage continued use of healthy coping mechanisms and stress reduction techniques. 7. Additional Concerns - Patient reports occasional episodes of severe nausea, possibly stress-related. - Consider monitoring thyroid medication, as patient suspects it may be contributing to symptoms. - Hydroxyzine prescribed may also help with nausea management. 8. Follow-up - Schedule a follow-up appointment in one month to assess stability and consider transitioning to primary care provider for ongoing management. 09/17/2024 Alcohol use (ICD-10 - Z78.9) patient reports a large reduction in ETOH use Patient had reduction in suicidal ideation and/or behavior upon follow-up assessment within 120 days of index assessment (M1357) 1. Major Depressive Disorder - Patient reports significant improvement in depressive symptoms, rating it as 2-3 out of 10. - Continue Fluoxetine 40 mg daily. Refill prescription as needed. - Follow up in one month to assess stability and consider transitioning to primary care provider for refills. 2. Anxiety - Patient reports significant improvement in anxiety symptoms. - Discontinue Propranolol due to concerns about interaction with EpiPen. - Switch to Hydroxyzine as needed for anxiety and nausea, up to three times a day. - Educate patient on potential side effects and precautions with Hydroxyzine. - Avoid taking Hydroxyzine with other allergy medications. 3. Sleep - Patient reports improved sleep quality. - No intervention needed at this time. Continue to monitor. 4. Concentration - Patient reports occasional difficulty concentrating but overall improvement. - No intervention needed at this time. Continue to monitor. 5. Substance Use - Patient reports cutting back on marijuana use and alcohol consumption. - Encourage continued reduction in substance use and promote healthy coping strategies. 6. Stress Management - Patient has experienced significant stressors in the past, including the deaths of mother, sister, and father in quick succession. - Patient is working on managing stress through social media reduction and other coping strategies. - Encourage continued use of healthy coping mechanisms and stress reduction techniques. 7. Additional Concerns - Patient reports occasional episodes of severe nausea, possibly stress-related. - Consider monitoring thyroid medication, as patient suspects it may be contributing to symptoms. - Hydroxyzine prescribed may also help with nausea management. 8. Follow-up - Schedule a follow-up appointment in one month to assess stability and consider transitioning to primary care provider for ongoing management. 08/20/2024 Marijuana use (ICD-10 - F12.90) 1. Major Depressive Disorder - Patient reports history of depression and mood swings. - Currently on fluoxetine 20mg daily. - Recent thoughts of self-harm but no active suicidal ideation past week. - Plan: a. Increase fluoxetine to 40mg daily (20mg tablets twice a day). b. Follow up in 1 month to assess increased dosage response. c. Patient reports depression since childhood, possibly related to family history. d. Provided crisis hotline information. 2. Anxiety - Patient reports improved anxiety recently. - Plan: a. Prescribe propranolol 10mg three times daily as needed for irritability/anxi ety. b. Monitor heart rate and avoid if <60bpm. c. Educated on potential side effects like lightheadedness, cold extremities. d. Discussed using propranolol for situational anxiety/irritabil ity. 3. Crohn's Disease - Patient reports Crohn's under control per recent tests showing no issues. - Plan: Continue current management and monitoring. - Educated on gut health-mood connection, particularly with Crohn's. 4. Allergies - Currently receiving allergy shots, last dose yesterday. - Plan: Continue allergy shots as prescribed. 5. Sleep Disturbances - Patient reports difficulty falling asleep but also sleeping too much. - Plan: a. Encourage good sleep hygiene. b. Consider trying magnesium supplement. c. No sleep aid prescribed due to excessive time in bed per patient. 6. Medication Management - Continue: Spironolactone 25mg, Synthroid 50mcg, prebiotic, Nexium 40mg, hair/skin/nails supplement. - Discontinue: cholesterol powder, gabapentin, hydrocodone, valacyclovir, diazepam. - Patient receives fluoxetine through [facility]. 7. Patient Education - Provided crisis hotline information. - Encouraged open communication with support system and seeking help if needed. - Discussed alcohol/marijuana impact on depression/anxiet y. - Educated on medical nature of depression/anxiet y, not life circumstance reflection. 8. Substance use She reports drinking alcohol fairly often but has recently cut back occasionally uses marijuana plan -advised to reduce substance use -pt reported that she does not need assistance at this time -pt acknowledges that substance use may be detrimental to her depression and medication metabolism. Follow up in 1 month to assess increased fluoxetine response and propranolol use. Patient can walk in before if needed. 08/20/2024 Alcohol use (ICD-10 - Z78.9) 1. Major Depressive Disorder - Patient reports history of depression and mood swings. - Currently on fluoxetine 20mg daily. - Recent thoughts of self-harm but no active suicidal ideation past week. - Plan: a. Increase fluoxetine to 40mg daily (20mg tablets twice a day). b. Follow up in 1 month to assess increased dosage response. c. Patient reports depression since childhood, possibly related to family history. d. Provided crisis hotline information. 2. Anxiety - Patient reports improved anxiety recently. - Plan: a. Prescribe propranolol 10mg three times daily as needed for irritability/anxi ety. b. Monitor heart rate and avoid if <60bpm. c. Educated on potential side effects like lightheadedness, cold extremities. d. Discussed using propranolol for situational anxiety/irritabil ity. 3. Crohn's Disease - Patient reports Crohn's under control per recent tests showing no issues. - Plan: Continue current management and monitoring. - Educated on gut health-mood connection, particularly with Crohn's. 4. Allergies - Currently receiving allergy shots, last dose yesterday. - Plan: Continue allergy shots as prescribed. 5. Sleep Disturbances - Patient reports difficulty falling asleep but also sleeping too much. - Plan: a. Encourage good sleep hygiene. b. Consider trying magnesium supplement. c. No sleep aid prescribed due to excessive time in bed per patient. 6. Medication Management - Continue: Spironolactone 25mg, Synthroid 50mcg, prebiotic, Nexium 40mg, hair/skin/nails supplement. - Discontinue: cholesterol powder, gabapentin, hydrocodone, valacyclovir, diazepam. - Patient receives fluoxetine through [facility]. 7. Patient Education - Provided crisis hotline information. - Encouraged open communication with support system and seeking help if needed. - Discussed alcohol/marijuana impact on depression/anxiet y. - Educated on medical nature of depression/anxiet y, not life circumstance reflection. 8. Substance use She reports drinking alcohol fairly often but has recently cut back occasionally uses marijuana plan -advised to reduce substance use -pt reported that she does not need assistance at this time -pt acknowledges that substance use may be detrimental to her depression and medication metabolism. Follow up in 1 month to assess increased fluoxetine response and propranolol use. Patient can walk in before if needed. 09/17/2024 Marijuana use (ICD-10 - F12.90) Patient had reduction in suicidal ideation and/or behavior upon follow-up assessment within 120 days of index assessment (M1357) 1. Major Depressive Disorder - Patient reports significant improvement in depressive symptoms, rating it as 2-3 out of 10. - Continue Fluoxetine 40 mg daily. Refill prescription as needed. - Follow up in one month to assess stability and consider transitioning to primary care provider for refills. 2. Anxiety - Patient reports significant improvement in anxiety symptoms. - Discontinue Propranolol due to concerns about interaction with EpiPen. - Switch to Hydroxyzine as needed for anxiety and nausea, up to three times a day. - Educate patient on potential side effects and precautions with Hydroxyzine. - Avoid taking Hydroxyzine with other allergy medications. 3. Sleep - Patient reports improved sleep quality. - No intervention needed at this time. Continue to monitor. 4. Concentration - Patient reports occasional difficulty concentrating but overall improvement. - No intervention needed at this time. Continue to monitor. 5. Substance Use - Patient reports cutting back on marijuana use and alcohol consumption. - Encourage continued reduction in substance use and promote healthy coping strategies. 6. Stress Management - Patient has experienced significant stressors in the past, including the deaths of mother, sister, and father in quick succession. - Patient is working on managing stress through social media reduction and other coping strategies. - Encourage continued use of healthy coping mechanisms and stress reduction techniques. 7. Additional Concerns - Patient reports occasional episodes of severe nausea, possibly stress-related. - Consider monitoring thyroid medication, as patient suspects it may be contributing to symptoms. - Hydroxyzine prescribed may also help with nausea management. 8. Follow-up - Schedule a follow-up appointment in one month to assess stability and consider transitioning to primary care provider for ongoing management. 08/20/2024 Other Learning About Depression Screening material was printed, Propranolol Oral Tablet (PROPRANOLOL - ORAL) material was published 1. Major Depressive Disorder - Patient reports history of depression and mood swings. - Currently on fluoxetine 20mg daily. - Recent thoughts of self-harm but no active suicidal ideation past week. - Plan: a. Increase fluoxetine to 40mg daily (20mg tablets twice a day). b. Follow up in 1 month to assess increased dosage response. c. Patient reports depression since childhood, possibly related to family history. d. Provided crisis hotline information. 2. Anxiety - Patient reports improved anxiety recently. - Plan: a. Prescribe propranolol 10mg three times daily as needed for irritability/anxi ety. b. Monitor heart rate and avoid if <60bpm. c. Educated on potential side effects like lightheadedness, cold extremities. d. Discussed using propranolol for situational anxiety/irritabil ity. 3. Crohn's Disease - Patient reports Crohn's under control per recent tests showing no issues. - Plan: Continue current management and monitoring. - Educated on gut health-mood connection, particularly with Crohn's. 4. Allergies - Currently receiving allergy shots, last dose yesterday. - Plan: Continue allergy shots as prescribed. 5. Sleep Disturbances - Patient reports difficulty falling asleep but also sleeping too much. - Plan: a. Encourage good sleep hygiene. b. Consider trying magnesium supplement. c. No sleep aid prescribed due to excessive time in bed per patient. 6. Medication Management - Continue: Spironolactone 25mg, Synthroid 50mcg, prebiotic, Nexium 40mg, hair/skin/nails supplement. - Discontinue: cholesterol powder, gabapentin, hydrocodone, valacyclovir, diazepam. - Patient receives fluoxetine through [facility]. 7. Patient Education - Provided crisis hotline information. - Encouraged open communication with support system and seeking help if needed. - Discussed alcohol/marijuana impact on depression/anxiet y. - Educated on medical nature of depression/anxiet y, not life circumstance reflection. 8. Substance use She reports drinking alcohol fairly often but has recently cut back occasionally uses marijuana plan -advised to reduce substance use -pt reported that she does not need assistance at this time -pt acknowledges that substance use may be detrimental to her depression and medication metabolism. Follow up in 1 month to assess increased fluoxetine response and propranolol use. Patient can walk in before if needed. 10/19/2024 Other 09/17/2024 Other patient is taking allergy shots (containing ragweed, nettle, bluegrass, privet.) Patient had reduction in suicidal ideation and/or behavior upon follow-up assessment within 120 days of index assessment (M1357) 1. Major Depressive Disorder - Patient reports significant improvement in depressive symptoms, rating it as 2-3 out of 10. - Continue Fluoxetine 40 mg daily. Refill prescription as needed. - Follow up in one month to assess stability and consider transitioning to primary care provider for refills. 2. Anxiety - Patient reports significant improvement in anxiety symptoms. - Discontinue Propranolol due to concerns about interaction with EpiPen. - Switch to Hydroxyzine as needed for anxiety and nausea, up to three times a day. - Educate patient on potential side effects and precautions with Hydroxyzine. - Avoid taking Hydroxyzine with other allergy medications. 3. Sleep - Patient reports improved sleep quality. - No intervention needed at this time. Continue to monitor. 4. Concentration - Patient reports occasional difficulty concentrating but overall improvement. - No intervention needed at this time. Continue to monitor. 5. Substance Use - Patient reports cutting back on marijuana use and alcohol consumption. - Encourage continued reduction in substance use and promote healthy coping strategies. 6. Stress Management - Patient has experienced significant stressors in the past, including the deaths of mother, sister, and father in quick succession. - Patient is working on managing stress through social media reduction and other coping strategies. - Encourage continued use of healthy coping mechanisms and stress reduction techniques. 7. Additional Concerns - Patient reports occasional episodes of severe nausea, possibly stress-related. - Consider monitoring thyroid medication, as patient suspects it may be contributing to symptoms. - Hydroxyzine prescribed may also help with nausea management. 8. Follow-up - Schedule a follow-up appointment in one month to assess stability and consider transitioning to primary care provider for ongoing management. Plan Of Treatment Pending Test Test Name Order Date UDT 08/20/2024 Insurance Providers Payer Name Payer Address Payer Phone Subscriber Number Group Number Insured Name Patient Relationship to Insured Coverage Start Date Coverage End Date [address] [place] [phone] [id number] ZEINA GOSS Self - patient is the insured Medical (General) History Medical History History ICD Code Past Psychiatric History: Anxiety Disord er abdominal aortic aneurysm: No atrial fibrillation: Yes chronic fatigue syndrome: No essential tremor: No hyperlipidemia: No hypertension: No Parkinson's disease: No restless leg syndrome: No stroke: No subdural hematoma: No type 1 diabetes mellitus: No type 2 diabetes mellitus: No vitamin B12 deficiency: No vitamin D deficiency: No
--- OUTSIDE RECORDS SUMMARY | 2025-01-12 22:13 | XMS_ITS ---
Author Organization [facility] Address [address] [address] Care Team Providers Care Paralegal Supervisor Name Role Phone Kirsten Eaton APN Primary Care Provider Unavailab Max Gallardo Unavailable [phone] Medications Medication SIG (Take, Route, Frequency, Duration) Notes Start Date End Date Status Esomeprazole Magnesium 40 MG Oral for 90 Days Active Prebiotic Product Ac tive hydrOXYzine Pamoate 25 MG 1 capsule Orally three times a day for 30 days As needed 09/17/2024 Active Hair Skin & Nails Ac tive FLUoxetine HCl 40 MG 1 capsule Oral Once a day for 30 days Active Insulin Syringe 31G X 5/16 1 ML USE TO INJECT 6 TIMES A WEEK PER ALLERGY INJECTIONS for 116 Days Active Spironolactone 25 MG Oral for 90 Days Active Synthroid 50 MCG Oral for 90 Days Pt is taking a different brand. Active NexIUM 40 MG 1 capsule Orally Once a day Active Social History Sex Assigned At : Social History Observation Description Sex Assigned At Female Encounters Encounter Location Date Provider Diagnosis [facility], Walk[address] [address] 10/19/2024 Max Valdes Assessments Encounter Date Diagnosis (ICD Code) Assessment Notes Treatment Notes Treatment Clinical Notes Section Notes 10/19/2024 Other Plan Of Treatment No Information Progress Notes * ARIADNA COLEOB:1960 (64 yo F)Acc No.[id number]:10/19/2024 Patient: Brandyn JIMENEZZEINA GONZALEZ Provider: ALISON Lund :1960 A ge:64 Y S ex:Female Date:10/19/2024 Phone: Address:[address] [place] [address], [facility] Pcp:Kirsten Eaton APN Subjective: * Chief Complaints: * * Medical History: * Medications: T aking FLUoxetine HCl 40 MG Capsule 1 capsule Oral Once a day , Taking hydrOXYzine Pamoate 25 MG Capsule 1 capsule Orally three times a day As needed, Taking Hair Skin & Nails , Taking Prebiotic Product , Taking NexIUM 40 MG Capsule Delayed Release 1 capsule Orally Once a day , Taking Spironolactone 25 MG Tablet Oral , Taking Synthroid 50 MCG Tablet Oral , Notes to Pharmacist: Pt is taking a different brand., Taking Insulin Syringe 31G X 5/16 1 ML Miscellaneous USE TO INJECT 6 TIMES A WEEK PER ALLERGY INJECTIONS , Taking Esomeprazole Magnesium 40 MG Capsule Delayed Release Oral Objective: * Vitals: Assessment: Plan: * Treatment: * Billing Information: * Visit Code: * Procedure Codes: * Electronic signature of ALISON Bui on 01/12/2025 at 10:13 PM MATERIAL FLOW ANALYST Sign off status: Pending * Provider: ALISON Lund Date: 12/19/2023 Generated for Fly ramirez/Justyna/Demarco on: 0 01/12/2025 10:13 PM MATERIAL FLOW ANALYST
--- OUTSIDE RECORDS SUMMARY | 2025-01-12 22:13 | XMS_ITS | Encounter Summary ---
Author Organization [facility] Address [address] [place] [address] Care Team Providers Care Cylinder Steamer Name Role Phone Rock Bullock MD Primary Care Provider [phone] Dillan Woody MD Primary Care Provider [phone] Encounter Details Date Type Department Care Team (Late st Contact Info) Description 12/28/2010 [facility] Outpatient Visit EXTERNAL NON-[facility] DEPT Rock Bullock MD [address] [place] [address] Social History Tobacco Use Types [...] on filedocumented in this encounter Care Teams Cylinder Steamer Relationship Specialty Start Date End Date Rock Bullock MD [address] [place] [address] PCP - General 12/26/10 02/25/12 Dillan Woody MD [address] [place] [address] PCP - General Internal Medicine 02/26/12 documented as of this encounter
--- OUTSIDE RECORDS SUMMARY | 2025-01-12 22:13 | XMS_ITS | Encounter Summary ---
Author Organization [facility] Address [address] [place] [address] Care Team Providers Care Trim Machine Adjuster Name Role Phone Priscila Tessydasha Mchugh Primary Care Provider [phone] Encounter Details Date Type Department Care Team (Latest Contact Info) Description 07/08/2009 Outpatient Historical HIS 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 400 Result Assessment: Higher Risk of Leucopenia. Higher Likelihood of Response. Metabolite: 6-MMPN Result (Units: pmole/8x10^8 RBC): 2516 Reference Range: <5700 Result Assessment: Lower Risk of Hepatotoxicity. Test Performed By: [email or web address], [place], [place] [facility] Specimen of unknown material (specimen) 07/13/2009 12:26 PM CDT 07/13/2009 12:36 PM CDT us Sujatha Prado MD CHEMISTRY ORDERABLES Edited Performing Organization Address [facility]/ZIP Co de Phone Number [facility] CLIA# [id number] [address] [address] * VITAMIN B12 (07/13/2009 12:26 PM CDT) Pathologist [facility] VITAMIN B12 303 211 - 946 pg/mL [facility] Comment: It has been reported that between 5 to 10% of patients with values between 200 and 400 pg/mL may experience neuropsychiatric and hematologic abnormalities due to occult B12 deficiency. Less than 1% of patients with values above 400 pg/mL will have symptoms. Blood specimen (specimen) 07/13/2009 12:26 PM CDT 07/13/2009 12:36 PM CDT us Sujatha Prado MD CHEMISTRY ORDERABLES Edited [facility] CLIA# [id number] [address] [place] [address] * TSH (07/13/2009 12:26 PM CDT) [facility] TSH 0.98 0.27 - 4.20 uU/mL [facility] Blood specimen (specimen) 07/13/2009 12:26 PM CDT 07/13/2009 12:36 PM CDT Sujatha Prado MD CHEMISTRY ORDERABLES Final Resu lt [facility] CLIA# [id number] [address] [facility] [place] [address] * (ABNORMAL) CBC WITH DIFFERENTIAL (07/13/2009 12:26 PM CDT) [facility] RDW 16.4(H) 11.5 - 14.5 % [facility] WBC 8.8 4.0 - 9.8 K/uL [facility] MCH 36.7(H) 27.2 - 32.6 pg [facility] MPV 10.1 9.3 - 12.4 fL [facility] HEMATOCRIT 39.9 35.5 - 44.0 % [facility] RDW-STDEV 63.0(H) 37.1 - 48.7 fL [facility] RBC 3.73(L) 3.90 - 4.90 M/uL [facility] MCHC 34.3 31.5 - 35.5 % [facility] MCV 107.0(H) 82.0 - 99.0 fL [facility] PLATELETS 380(H) 140 - 350 K/uL [facility] HEMOGLOBIN 13.7 11.8 - 14.8 g/dL [facility] LYMPHOCYTES 7(L) 16 - 45 % [facility] LYMPHOCYTE ABSOLUTE 0.60(L) 0.70 - 4.50 K/uL [facility] BASOPHILS 0 0 - 2 % [facility] BASOPHILS ABSOLUTE 0.02 0.00 - 0.20 K/uL [facility] MONOCYTES 2(L) 3 - 13 % [facility] MONOCYTE ABSOLUTE 0.18 0.10 - 1.30 K/uL [facility] NEUTROPHILS 91(H) 45 - 70 % [facility] NEUTROPHIL ABSOLUTE 7.94(H) 1.90 - 7.00 K/uL [facility] EOSINOPHILS 0 0 - 7 % [facility] EOSINOPHIL ABSOLUTE 0.01 0.00 - 0.70 K/uL [facility] Blood specimen (specimen) 07/13/2009 12:26 PM CDT 07/13/2009 12:36 PM CDT Sujatha Prado MD HEMATOLOGY ORDERABLES Edited [facility] CLIA# [id number] [address] [place] [address] documented in this encounter Visit Diagnoses Diagnosis Regional enteritis of unspecified site (CMS/HCC) Regional enteritis of unspecified site documented in this encounter Care Teams Trim Machine Adjuster Relationship Specialty Start Date End Date Tessy Francois DO [address] [place] [address] PCP - General 11/17/15 documented as of this encounter
--- OUTSIDE RECORDS SUMMARY | 2025-01-12 22:13 | XMS_ITS | Encounter Summary ---
Author Organization [facility] Address [address] [place] [address] Care Team Providers Care Hansard Reporter Name Role Phone Priscila Tessydasha Mchugh Primary Care Provider [phone] Encounter Details Date Type Department Care Team (Latest Contact Info) Description 03/10/2009 Outpatient Historical HIS [facility] Sujatha Ledesma MD [address] [place] [address] Regional Enteritis of Unspecified Site (CMS/HCC) Social History Tobacco Use Types Packs/Day Years Used Date Smoking Tobacco: Never Assessed Comments Unknown Sex and Gender Information Value Date Recorded Sex Assigned at Not on file Legal Sex Female 5: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 SIDING MECHANIC Gender Identity Not on file Sexual [...] CDT) CALCIUM 9.5 8.6 - 10.2 mg/dL [facility] CHLORIDE 101 96 - 108 mmol/L [facility] ALBUMIN 4.5 3.4 - 4.8 g/dL [facility] CREATININE 0.77 0.51 - 0.95 mg/dL [facility] SODIUM 138 135 - 145 mmol/L [facility] ALT 46(H) 0 - 31 U/L [facility] ALKALINE PHOSPHATASE 54 35 - 104 U/L [facility] BILIRUBIN TOTAL 0.3 0.2 - 1.0 mg/dL [facility] CO2 28 22 - 30 mmol/L [facility] TOTAL PROTEIN 7.2 6.3 - 8.6 g/dL [facility] POTASSIUM 3.9 3.5 - 4.9 mmol/L [facility] GLUCOSE 96 65 - 99 mg/dL [facility] AST 33(H) 12 - 32 U/L [facility] BUN 7 6 - 20 mg/dL [facility] GFR, >60 >=60 mL/min/1.7 sq meter [facility] GFR >60 >=60 mL/min/1.7 sq meter [facility] Comment: Modification of Diet in Renal Disease (MDRD) study formula. Estimated GFR rate interpretative information for both Americans and non- Americans is available on the [facility] Intranet at: [email or web address] Select: Lab Policies and Procedures Select: Reference Ranges - GFR Blood specimen (specimen) 03/10/2009 2:33 PM CDT 03/10/2009 3:22 PM CDT Sujatha Prado MD CHEMISTRY ORDERABLES Edited INTERFACE SYSTEM Refer to clinic/hospital department [facility] CLIA# [id number] [address] [place] [address] * (ABNORMAL) CBC WITH DIFFERENTIAL (03/10/2009 2:33 PM CDT) RBC 4.13 3.90 - 4.90 M/uL [facility] MCHC 32.7 31.5 - 35.5 % [facility] MCV 101.5(H) 82.0 - 99.0 fL [facility] PLATELETS 315 140 - 350 K/uL [facility] HEMOGLOBIN 13.7 11.8 - 14.8 g/dL [facility] RDW 14.3 11.5 - 14.5 % [facility] WBC 7.6 4.0 - 9.8 K/uL [facility] MCH 33.2(H) 27.2 - 32.6 pg [facility] MPV 10.5 9.3 - 12.4 fL [facility] HEMATOCRIT 41.9 35.5 - 44.0 % [facility] RDW-STDEV 52.8(H) 37.1 - 48.7 fL [facility] NEUTROPHILS 67 45 - 70 % [facility] NEUTROPHIL ABSOLUTE 5.13 1.90 - 7.00 K/uL [facility] EOSINOPHILS 2 0 - 7 % [facility] EOSINOPHIL ABSOLUTE 0.17 0.00 - 0.70 K/uL [facility] LYMPHOCYTES 21 16 - 45 % [facility] LYMPHOCYTE ABSOLUTE 1.60 0.70 - 4.50 K/uL [facility] BASOPHILS 1 0 - 2 % [facility] BASOPHILS ABSOLUTE 0.05 0.00 - 0.20 K/uL [facility] MONOCYTES 9 3 - 13 % [facility] MONOCYTE ABSOLUTE 0.66 0.10 - 1.30 K/uL [facility] Blood specimen (specimen) 03/10/2009 2:33 PM CDT 03/10/2009 3:24 PM CDT us Sujatha Prado MD HEMATOLOGY ORDERABLES Edited INTERFACE SYSTEM Refer to clinic/hospital department [facility] CLIA# [id number] [address] [place] [address] documented in this encounter Visit Diagnoses Diagnosis Regional enteritis of unspecified site (CMS/HCC) Regional enteritis of unspecified site documented in this encounter Care Teams Hansard Reporter Relationship Specialty Start Date End Date Tessy Francois DO [address] [place] [address] PCP - General 11/17/15 documented as of this encounter
--- OUTSIDE RECORDS SUMMARY | 2025-01-12 22:13 | XMS_ITS | Encounter Summary ---
Author Organization [facility] Address 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 Gender Identity Not on file [...] CDT) CALCIUM 9.6 8.6 - 10.2 mg/dL [facility] CHLORIDE 100 96 - 108 mmol/L [facility] ALBUMIN 4.4 3.4 - 4.8 g/dL [facility] [place] CREATININE 0.67 0.51 - 0.95 mg/dL [facility] SODIUM 139 135 - 145 mmol/L [facility] ALT 13 0 - 31 U/L [facility] ALKALINE PHOSPHATASE 48 35 - 104 U/L [facility] [place] BILIRUBIN TOTAL 0.4 0.2 - 1.0 mg/dL [facility] [place] CO2 26 22 - 30 mmol/L [facility] TOTAL PROTEIN 7.2 6.3 - 8.6 g/dL [facility] POTASSIUM 4.0 3.5 - 4.9 mmol/L [facility] GLUCOSE 109(H) 65 - 99 mg/dL [facility] AST 15 12 - 32 U/L [facility] BUN 7 6 - 20 mg/dL [facility] GFR, >60 >=60 mL/min/1. 7 sq meter [facility] GFR >60 >=60 mL/min/1. 7 sq meter [facility] Comment: Modification of Diet in Renal Disease (MDRD) study formula. Estimated GFR rate interpretative information for both Americans and non- Americans is available on the [facility] Intranet at: [email or web address] Select: Lab Policies and Procedures Select: Reference Ranges - GFR 05/18/2009 4:50 PM CDT 05/18/2009 5:14 PM CDT us Sujatha Prado MD CHEMISTRY ORDERABLES Edited INTERFACE SYSTEM Refer to clinic/hospital department [facility] CLIA# [id number] [address] [place] [address] * C-REACTIVE PROTEIN (05/18/2009 4:50 PM CDT) [facility] CRP 0.5 0.0 - 0.8 mg/dL [facility] 05/18/2009 4:50 PM CDT 05/18/2009 5:14 PM CDT us Sujatha Prado MD CHEMISTRY ORDERABLES Final Resu lt INTERFACE SYSTEM Refer to clinic/hospital department [facility] CLIA# [id number] [address] [place] [address] * (ABNORMAL) CBC WITH DIFFERENTIAL (05/18/2009 4:50 PM CDT) [facility] RBC 3.59(L) 3.90 - 4.90 M/uL [facility] MCHC 33.9 31.5 - 35.5 % [facility] [place] MCV 102.8(H) 82.0 - 99.0 fL [facility] [place] PLATELETS 373(H) 140 - 350 K/uL [facility] HEMOGLOBIN 12.5 11.8 - 14.8 g/dL [facility] RDW 14.1 11.5 - 14.5 % [facility] [place] WBC 8.3 4.0 - 9.8 K/uL [facility] MCH 34.8(H) 27.2 - 32.6 pg [facility] [place] MPV 10.1 9.3 - 12.4 fL [facility] [place] HEMATOCRIT 36.9 35.5 - 44.0 % [facility] [place] RDW-STDEV 52.3(H) 37.1 - 48.7 fL [facility] [place] MONOCYTES 7 3 - 13 % [facility] [place] MONOCYTE ABSOLUTE 0.62 0.10 - 1.30 K/uL [facility] [place] NEUTROPHILS 73(H) 45 - 70 % [facility] NEUTROPHIL ABSOLUTE 6.06 1.90 - 7.00 K/uL [facility] EOSINOPHILS 2 0 - 7 % [facility] EOSINOPHIL ABSOLUTE 0.16 0.00 - 0.70 K/uL [facility] LYMPHOCYTES 18 16 - 45 % [facility] LYMPHOCYTE ABSOLUTE 1.46 0.70 - 4.50 K/uL [facility] BASOPHILS 1 0 - 2 % [facility] BASOPHILS ABSOLUTE 0.04 0.00 - 0.20 K/uL [facility] 05/18/2009 4:50 PM CDT 05/18/2009 5:12 PM CDT us Sujatha Prado MD HEMATOLOGY ORDERABLES Edited INTERFACE SYSTEM Refer to clinic/hospital department [facility] CLIA# [id number] [address] [place] [address] documented in this encounter Visit Diagnoses Diagnosis Regional enteritis of unspecified site (CMS/HCC) Regional enteritis of unspecified site documented in this encounter Care Teams Sales Service Representative Relationship Specialty Start Date End Date Tessy Francois DO [address] [place] [address] PCP - General 11/17/15 documented as of this encounter
[2025-01-12 22:14] VITALS: BP 188/92; PULSE 77; RESP 15; TEMP 36.6; O2SAT 95
--- OUTSIDE RECORDS SUMMARY | 2025-01-12 22:14 | XMS_ITS | Encounter Summary ---
Author Organization [facility] Address [address] Attn: Epic Prelude ADT [address] [place] [address] Care Team Providers Care Women'S Soccer Coach Name Role Phone Tessy Francois DO Primary Care Provider [phone] Encounter Details Date Type Department Care Team (Late st Contact Info) Description 08/27/2007 Outpatient Historical Amari Emmanuel MD NO ADDRESS ON FILE Social History Tobacco Use Types Packs/Day Years Used Date Smoking Tobacco: Never Assessed Comments Unknown Sex and Gender Information Value Date Recorded Sex Assigned at Not on file Legal Sex Female 5:28 AM CONSUMER MARKETING ANALYST Gender Identity Not on file Sexual Orientation Not on file documented as of this encounter Plan of Treatment Not on file documented as of this encounter Visit Diagnoses Not on filedocumented in this encounter Care Teams Women'S Soccer Coach Relationship Specialty Start Date End Date Tessy Francois DO [address] [place] [address] PCP - General 11/17/15 documented as of this encounter
--- OUTSIDE RECORDS SUMMARY | 2025-01-12 22:14 | XMS_ITS | Encounter Summary ---
Author Organization [facility] Address [address] [place] [address] Care Team Providers Care Coal Or Ore Controller Name Role Phone Tessy Francois DO Primary Care Provider [phone] Encounter Details Date Type Department Care Team (Late st Contact Info) Description 08/28/2007 Outpatient Historical [facility] Supp [facility] Blood Flow [address] [place] [address] Riaz Alvarado MD NO ADDRESS ON FILE Social History Tobacco Use Types Packs/Day Years Used Date Smoking Tobacco: Never Assessed Comments Unknown Sex and Gender Information Value Date Recorded Sex Assigned at Not on file Legal Sex Female 5:28 AM CHIEF OF STAFF Gender Identity Not on file Sexual Orientation Not on file documented as of this encounter Plan of Treatment Not on file documented as of this encounter Visit Diagnoses Not on filedocumented in this encounter Care Teams Coal Or Ore Controller Relationship Specialty Start Date End Date Tessy Francois DO [address] [place] [address] PCP - General 11/17/15 documented as of this encounter
--- OUTSIDE RECORDS SUMMARY | 2025-01-12 22:14 | XMS_ITS | Clinical Summary ---
Author Organization [facility] Address [address] [place] [address] Care Team Providers Care Medical Records Analyst Name Role Phone Dillan Woody MD Primary Care Provider [phone] Source Comments [facility],non-owned Affiliates and Associated Physician Practices is amultiple site organization consisting of ambulatory clinics and hospital sitesin [place], [place], [place] and [place]. This disclosure is being madepursuant to the Care Everywhere program and may not contain all information available regarding this patient. Last updated 18.[facility] Allergies Active Allergy Reactions Criticality Noted Date [...] daily. Active Cyanocobalamin (NASCOBAL) 500 MCG/0.1ML SOLN [place] 1 Squirt into the nose every 7 [...] 36.3 C (97.3 F) 01/07/2011 8:00 AM PRODUCTION MATERIAL COORDINATOR Respiratory Rate 18 01/07/2011 8:00 AM PRODUCTION MATERIAL COORDINATOR Oxygen Saturation 100% 01/05/2011 8:00 PM PRODUCTION MATERIAL COORDINATOR Inhaled Oxygen Concentration - - Weight 73.9 [...] ICD9 [facility] ACCOUNT BILL Comment:V72.31 ; Routine bull gang supervisor ecological examination Performed by [facility] ACCOUNT BILL [...] Thin Prep Vial Resulting Agency Comment [facility] [address] [id number] Rock Bullock MD LAB - PATHOLOGY/CYTO LOGY [...] 10:33 PM 01/04/2011 8:00 PM Care Teams Medical Records Analyst Relationship Specialty Start Date End Date Dillan Woody MD PCP - General Internal Medicine 02/26/12
--- OUTSIDE RECORDS SUMMARY | 2025-01-12 22:14 | XMS_ITS | Encounter Summary ---
Author Organization [employer] Address [address] [place] [address] Care Team Providers Care Feed Inspection Supervisor Name Role Phone Tessy Francois DO Primary Care Provider [phone] Encounter Details Date Type Department Care Team (Late st Contact Info) Description 08/29/2007 Outpatient Historical [facility] Support [facility] ([facility]) [address] [place] [address] Tristan Hyman MD NO ADDRESS ON FILE Social History Tobacco Use Types Packs/Day Years Used Date Smoking Tobacco: Never Assessed Comments Unknown Sex and Gender Information Value Date Recorded Sex Assigned at Not on file Legal Sex Female 5:28 AM CRM COORDINATOR Gender Identity Not on file Sexual Orientation Not on file documented as of this encounter Plan of Treatment Not on file documented as of this encounter Visit Diagnoses Not on filedocumented in this encounter Care Teams Feed Inspection Supervisor Relationship Specialty Start Date End Date Tessy Francois DO [address] [place] [address] PCP - General 11/17/15 documented as of this encounter
--- OUTSIDE RECORDS SUMMARY | 2025-01-12 22:14 | XMS_ITS | Encounter Summary ---
Author Organization [employer] Address [address] [place] [address] Care Team Providers Care Blister Packing Machine Tender Name Role Phone Priscila Tessy Britte Primary Care Provider [phone] Encounter Details Date Type Department Care Team [...] on file Legal Sex Female 5:28 AM LEAF CONDITIONER HELPER Gender Identity Not on file Sexual Orientation Not on file documented as of this encounter Plan of Treatment Not on file documented as of this encounter Procedures Procedure Name Priority Date/Time Associated Diagnosis Comments CT HEAD WO CONTRAST Routine 12/29/2008 4 :15 PM LEAF CONDITIONER HELPER CBC WITH DIFFERENTIAL Stat 12/29/2008 2:48 PM LEAF CONDITIONER HELPER C-REACTIVE PROTEIN Stat 12/29/2008 2: 48 PM LEAF CONDITIONER HELPER COMPREHENSIVE METABOLIC PANEL Stat 12/29/2008 2:48 PM LEAF CONDITIONER HELPER documented in this encounter Results * CT HEAD WO CONTRAST (12/29/2008 4:15 PM LEAF CONDITIONER HELPER) Anatomical Region Laterality Modality Head Other 12/29/2008 4:15 PM LEAF CONDITIONER HELPER Narrative 12/29/2008 4:28 PM [facility] [address] [place], [place] [address] Admit Date: 12/29/2008 ZEINA COLE Sex: F Admit Prov: ER, AUTHORIZED P Date: 1960 Primary Care Prov: NADIA PEÑALOZA CMRN: [id number] [id number] IM[facility]ING SERVICES Ordering Prov: N/A Accession Number: [id number] Interpretation CT head without contrast 12/29/2008.. History: [...] 12/29/2008 16:27 Procedure Note Meg Cheung 12/29/2008 [facility] [address] [place], [place] [address] Admit Date: 12/29/2008 ZEINA COLE Sex: F Admit Prov: ER, AUTHORIZED P Date: 1960 Primary Care Prov: NADIA PEÑALOZA CMRN: [id number] [facility] [phone] IMAGING SERVICES Ordering Prov: N/A Interpretation CT [...] Result * C-REACTIVE PROTEIN (12/29/2008 2:48 PM LEAF CONDITIONER HELPER) CRP 0.3 0.0 - 0.8 mg/dL [facility] Blood specimen (specimen) 12/29/2008 2:48 PM LEAF CONDITIONER HELPER 12/29/2008 3:01 PM LEAF CONDITIONER HELPER Manjit Mendiola MD CHEMISTRY ORDERABLES Final R esult INTERFACE SYSTEM Refer to clinic/hospital department [facility] CLIA# [id number] [address] [place] [address] * (ABNORMAL) COMPREHENSIVE METABOLIC PANEL (12/29/2008 2:48 PM LEAF CONDITIONER HELPER) CREATININE 0.67 0.51 - 0.95 mg/dL [facility] SODIUM 136 135 - 145 mmol/L [facility] ALT 26 0 - 31 U/L [facility] ALKALINE PHOSPHATASE 46 35 - 104 U/L [facility] BILIRUBIN TOTAL 0.4 0.2 - 1.0 mg/dL [facility] CO2 26 22 - 30 mmol/L [facility] TOTAL PROTEIN 6.6 6.3 - 8.6 g/dL [facility] POTASSIUM 4.0 3.5 - 4.9 mmol/L [facility] GLUCOSE 119(H) 65 - 99 mg/dL [facility] AST 22 12 - 32 U/L [facility] BUN 8 6 - 20 mg/dL [facility] CALCIUM 9.3 8.6 - 10.2 mg/dL [facility] CHLORIDE 101 96 - 108 mmol/L [facility] ALBUMIN 4.0 3.4 - 4.8 g/dL [facility] GFR, >60 >=60 mL/min/1. 7 sq meter [facility] GFR >60 >=60 mL/min/1. 7 sq meter [facility] Comment: Modification of Diet in Renal Disease (MDRD) study formula. Estimated GFR rate interpretative information for both Americans and non- Americans is available on the [facility] Intranet at: [email or web address] Select: Lab Policies and Procedures Select: Reference Ranges - GFR Blood specimen (specimen) 12/29/2008 2:48 PM LEAF CONDITIONER HELPER 12/29/2008 3:01 PM LEAF CONDITIONER HELPER us Manjit Mendiola MD CHEMISTRY ORDERABLES Edited INTERFACE SYSTEM Refer to clinic/hospital department [facility] CLIA# [id number] [address] [place], [place] [address] * (ABNORMAL) CBC WITH DIFFERENTIAL (12/29/2008 2:48 PM LEAF CONDITIONER HELPER) RDW-STDEV 43.8 37.1 - 48.7 fL [facility] RBC 4.38 3.90 - 4.90 M/uL [facility] MCHC 33.8 31.5 - 35.5 % [facility] MCV 95.2 82.0 - 99.0 fL [facility] PLATELETS 304 140 - 350 K/uL [facility] HEMOGLOBIN 14.1 11.8 - 14.8 g/dL [facility] RDW 12.6 11.5 - 14.5 % [facility] WBC 11.0(H) 4.0 - 9.8 K/uL [facility] MCH 32.2 27.2 - 32.6 pg [facility] MPV 10.2 9.3 - 12.4 fL [facility] HEMATOCRIT 41.7 35.5 - 44.0 % [facility] MONOCYTES 4 3 - 13 % [facility] MONOCYTE ABSOLUTE 0.47 0.10 - 1.30 K/uL [facility] NEUTROPHILS 78(H) 45 - 70 % [facility] NEUTROPHIL ABSOLUTE 8.58(H) 1.90 - 7.00 K/uL [facility] EOSINOPHILS 1 0 - 7 % [facility] EOSINOPHIL ABSOLUTE 0.05 0.00 - 0.70 K/uL [facility] LYMPHOCYTES 17 16 - 45 % [facility] LYMPHOCYTE ABSOLUTE 1.89 0.70 - 4.50 K/uL [facility] BASOPHILS 0 0 - 2 % [facility] BASOPHILS ABSOLUTE 0.03 0.00 - 0.20 K/uL [facility] Blood specimen (specimen) 12/29/2008 2:48 PM LEAF CONDITIONER HELPER 12/29/2008 3:01 PM LEAF CONDITIONER HELPER us Manjit Mendiola MD HEMATOLOGY ORDERABLES Edited INTERFACE SYSTEM Refer to clinic/hospital department [facility] CLIA# [id number] [address] [place] [address] documented in this encounter Visit Diagnoses Not on filedocumented in this encounter Care Teams Blister Packing Machine Tender Relationship Specialty Start Date End Date Tessy Francois DO [address] [place] [address] PCP - General 11/17/15 documented as of this encounter
--- OUTSIDE RECORDS SUMMARY | 2025-01-12 22:14 | XMS_ITS ---
Author Organization [facility] [employer] [facility] Address [facility] [address] [address] Care Team Providers Care Street Worker Name Role Phone Kirsten Eaton APN Primary Care Provider Unavailab Max Gallardo Unavailable [phone] REASON FOR VISIT Refill Request Social History Sex Assigned At : Social History Observation Description Sex Assigned At Female Encounters Encounter Location Date Provider Diagnosis [place] [address] [facility] [address] [address] 12/24/2024 Max Valdes Plan Of Treatment No Information Progress Notes * ARIADNA LOPEZOB:1960 (64 yo F)Acc No.[id number]:12/24/2024 Patient: Brandyn JONESMansi ZEINA :1960 A ge:64 Y S ex:Female Phone: Address:[address] [place] [address], [place] [address] * true * Date: Generated for Eberi ashley/Justyna/eTransmitting on: 0 01/12/2025 10:13 PM WELDING EQUIPMENT REPAIRER SUPERVISOR
--- OUTSIDE RECORDS SUMMARY | 2025-01-12 22:14 | XMS_ITS ---
Author Organization [facility] [place] Address [address] [place] [address] Care Team Providers Care Telegrapher Agent Name Role Phone Kirsten Eaton APN Primary Care Provider Unavailab Max Gallardo Unavailable [phone] Allergies Allergen (clinical drug ingredient) Drug/Non Drug Allergy documented on EMR Reaction Allergy Type Onset Date Status Soy Balance Unknown Drug Allergy Activ e Eggs or Egg-derived Products Unknown Drug Allergy Active REASON FOR VISIT reports significant improvement in depression and anxiety, with concerns about occasional nausea episodes Medications Medication SIG (Take, Route, Frequency, Duration) Notes Start Date End Date Status Synthroid 50 MCG Oral for 90 Days Pt is taking a different brand. Active Spironolactone 25 MG Oral for 90 Days Active FLUoxetine HCl 40 MG 1 capsule Oral Once a day for 30 days Active NexIUM 40 MG 1 capsule Orally Once a day Active hydrOXYzine Pamoate 25 MG 1 capsule Orally three times a day 09/17/2024 Active Hair Skin & Nails Ac tive Prebiotic Product Ac tive hydrOXYzine Pamoate 25 MG 1 capsule Orally three times a day for 30 days As needed 09/17/2024 Active Social History Tobacco Use: Social History [...] Problem Status W/U Status Risk Notes Problem [id number] MDD (major depressive disorder), recurrent episode, moderate (F33.1) Active confirmed Vital Signs Blood pressure systolic 135 mm Hg 09/17/20 24 Blood pressure diastolic 91 mm Hg 024 Heart Rate 82 /min 09/17/2024 Weight 173.6 lbs 09/17/2024 Weight-kg 78.74 kg 09/17/2024 Encounters Encounter Location Date Provider Diagnosis [employer], [place] [address] [address] 09/17/2024 Max Clubb MAYANK (generalized anxiety disorder) F41.1 ; MDD (major depressive disorder), recurrent episode, moderate F33.1 ; Alcohol use Z78.9 and Marijuana use F12.90 Assessments Encounter Date Diagnosis (ICD Code) Assessment Notes Treatment Notes Treatment Clinical Notes Section Notes 09/17/2024 MAYANK (generalized anxiety disorder) (ICD-10 - [...] primary care provider for ongoing management. 09/17/2024 Marijuana use (ICD-10 - F12.90) Patient [...] primary care provider for ongoing management. 09/17/2024 Other patient is taking allergy shots [...] provider for ongoing management. Plan Of Treatment Medication Medication Name Sig Start Date Stop Date Notes Propranolol HCl 10 MG 1 tablet Orally Th ree times a day for 30 days FLUoxetine HCl 40 MG 1 capsule Oral Once a day for 30 days hydrOXYzine Pamoate 25 MG 1 capsule Oral ly three times a day for 30 days 09/17/2024 Treatment Notes Assessment Notes MDD (major depressive disord er), recurrent episode, moderate Assessment and plan reviewed with patient Call for problems with medication, side effects or need for dosage change Compliance issues reviewed Discussed the risks/benefits of this medication Discussed medication side effects Return if symptoms worsen Treatment options reviewed. discussed that it can take weeks to see full therapeutic effects of psychotropic medications. discussed when to seek emergency services. discussed crisis prevention hotline 988. Alcohol use patient reports a la rge reduction in ETOH use Other patient is taking al lergy shots (containing ragweed, nettle, bluegrass, privet.) Next Appt Details Follow Up: 10/19/2024, Reaso n: Progress Notes * ARIADNA COLEOB:1960 (64 yo F)Acc No.[id number]:09/17/2024 Patient: Brandyn ZEINA OLIVARES Provider: ALISON Lund :1960 A ge:64 Y S ex:Female Date:09/17/2024 Phone: Address:[address] [place] [address], [id number] Pcp:Kirsten A Yakel LOCATION DIRECTOR Subjective: * Chief Complaints: * R eports significant improvement in depression and anxiety, with concerns about occasional nausea episodes * HPI: D epression Screening: The note is transcribed using speech recognition software. It is a reflection of a visit with the patient. It might have some inaccuracy, including medication names and transcribing errors, though efforts have been made to correct them. Chief Complaint: The patient reports significant improvement in depression and anxiety, with concerns about occasional nausea episodes HPI: The patient rates their depression as 2-3/10, noting a substantial improvement. Anxiety has also greatly improved. They report occasional episodes of nausea and inability to function, which they believe may be stress-related, possibly stemming from recent family losses. The patient has been sleeping better and experiencing decreased irritability. They deny panic attacks, suicidal thoughts, thoughts of harming others, mental or physical abuse, loss of appetite, eating disorders, delusions, hallucinations, or paranoia. Medications: The patient is currently taking fluoxetine 40 mg and is satisfied with this dose. They have been using propranolol infrequently, only during specific anxiety- inducing events. The patient expresses concern about a potential interaction between beta blockers and their EpiPen, which they carry due to allergy shots. They mention that their thyroid medication might be affecting them the most. Sleep: The patient reports improved sleep quality. Other Symptoms: The patient has experienced episodes of nausea and inability to function, which they attribute to stress following family bereavements. They have made efforts to manage stress by reducing social media use and cutting back on marijuana and alcohol consumption, focusing on drinking water instead. The patient expresses concern about the impact of the current political climate on their mental well-being. Allergies: The patient has been receiving allergy shots since April and carries an EpiPen. Substance Use: The patient reports reducing marijuana use and alcohol consumption. MAYANK-7 (2018 Edition) F eeling nervous, anxious, or on edge?Several days, N ot being able to stop or control worrying N ot at all, W orrying too much about different things S everal days, T rouble relaxing S everal days, B eing so restless that it is hard to sit still S everal days, B ecoming easily annoyed or irritable S everal days, F eeling afraid as if something awful might happen S everal days, T otal MAYANK-7 Score 6 , I f you checked any problems, how difficult have they made it for you to do your work, take care of things at home, or get along with other people? S omewhat difficult, I nterpretation of Total ( 5 to 9) Mild. D epression screening: PHQ-9 L ittle interest or pleasure in doing things M ore than half the days, F eeling down, depressed, or hopeless S everal days, T rouble falling or staying asleep, or sleeping too much N early every day, F eeling tired or having little energy M ore than half the days, P oor appetite or overeating N early every day, F eeling bad about yourself or that you are a failure, or have let yourself or your family down S everal days, T rouble concentrating on things, such as reading the newspaper or watching television S ever, M oving or speaking so slowly that other people could have noticed; or the opposite, being so fidgety or restless that you have been moving around a lot more than usual?Not at all, T houghts that you would be better off or of hurting yourself in some way Not at all, T otal Score 1 3, I nterpretation M oderate Depression. P ast Medication history: propranolol d/c r/t potential effects it can have on epi pen effectiveness if she were to need it. * ROS: P sychiatric: Patient denies a uditory / visual hallucinations, delusions, difficulty sleeping, eating disorder, loss of appetite, mental or physical abuse, mood disorder, nervous breakdown, stressors, substance abuse, suicidal thoughts, kwadwo, Feeling Intoxicated, Dissociations, Excited, psychosis, irritability, panic attacks, difficulty concentrating, involuntary movements. P atient complains of a nxiety, depressed mood. * Medical History: * Surgical History: * Hospitalization/Major Diagno stic Procedure: * Social History: T obacco Use: T obacco Control (Standard) T obacco use: F ormer smoker, W hen did you start smoking? 0 03/02/2013, H ow long has it been since you last smoked? 5 -10 years. D rug/Alcohol: D o you smoke marijuana?: patient has not used marijuana education was provided at first assessment at [facility]. Do you drink alcohol?: Yes, reports large reduction in use since last assessment.. * Medications: T akinghydrOXYzine Pamoate 25 MG Capsule 1 capsule Orally three times a day Hair Skin & Nails Prebiotic Product NexIUM 40 MG Capsule Delayed Release 1 capsule Orally Once a day Spironolactone 25 MG Tablet Oral Synthroid 50 MCG Tablet Oral , Notes to Pharmacist: Pt is taking a different brand.FLUoxetine HCl 40 MG Capsule 1 capsule Oral Once a day Taking hydrOXYzine Pamoate 25 MG Capsule 1 capsule Orally three times a day Taking Hair Skin & Nails Taking Prebiotic Product Taking NexIUM 40 MG Capsule Delayed Release 1 capsule Orally Once a day Taking Spironolactone 25 MG Tablet Oral Taking Synthroid 50 MCG Tablet Oral , Notes to Pharmacist: Pt is taking a different brand.Taking FLUoxetine HCl 40 MG Capsule 1 capsule Oral Once a day DiscontinuedPropranolol HCl 10 MG Tablet 1 tablet Orally Three times a day As neededMedication List reviewed and reconciled with the patientDiscontinued Propranolol HCl 10 MG Tablet 1 tablet Orally Three times a day As neededMedication List reviewed and reconciled with the patient * Allergies: E ggs or Egg-derived ProductsSoy Balance: Side Effectsno[Allergies Verified] Objective: * Vitals: B P:135/91mm Hg, HR:82/min, Wt:173.6lbs, Wt-k.74 kg. * Examination: G eneral Examination: Psych: a lert and oriented x 3, cognitive function intact, cooperative with exam, maintains good eye contact, with good judgement and insight, normal affect / mood, with no auditory or visual hallucinations, speech is clear and coherent, thought process is logical and goal directed without suidical ideation or delusions. - Mental Status Examination: - Patient reports a significant improvement in depression, rating it around 2-3 on a scale of 10. - Anxiety levels have also improved markedly. - No suicidal ideation, delusions, hallucinations, paranoia, or thoughts of harming self or others reported. - No recent episodes of panic attacks, nervous breakdowns, or increased irritability. - Denies any mental or physical abuse. - No loss of appetite or eating disorders noted. - Describes using social media deletion as a coping mechanism and has been avoiding excessive social media engagement. - Reports improved sleep. - Partner has noticed a significant improvement in patient's condition. - Vital Signs: Review note - Physical Examination: - General: Occasional nausea and inability to function, attributed to stress. - Neurological: No issues with concentration or memory reported. - Gastrointestinal: Occasional severe nause. Assessment: * Assessment: 1. M DD (major depressive disorder), recurrent episode, moderate - F33.1 (Primary) ?2. G AD (generalized anxiety disorder) - F41.1 3 . A lcohol use - Z78.9? 4. M arijuana use - F12.90 Patient had reduction in lida cidal ideation and/or behavior upon follow-up assessment within [...] to primary care provider for ongoing management. Plan: * Treatment: 2. G AD (generalized anxiety disorder) Stop Propranolol HCl Tablet, 10 MG, 1 tablet, Orally, Three times a day As needed, 30 days, 90 Tablet. 3. A lcohol use Notes: patient reports a large reduction in ETOH use 4. O thers Notes: patient is taking allergy shots (containing ragweed, nettle, bluegrass, privet.) * Procedure Codes: M 1357 Pt w/red suic idea 120 [id number] VISIT COMPLEXITY INHERENT TO ONGOING CARE RELATED TO A PATIENT'S SINGLE, SERIOUS CONDITION OR A COMPLEX CONDITION * Preventive Medicine: Counseling: B P Management: F IRST HYPERTENSIVE BP READING FOLLOW-UP PLAN: _ ___, R EFERRAL TO ALTERNATIVE / PRIMARY CARE PROVIDER: Juan albaerral to general practitioner ____. * Follow Up: 1 12/19/2023 * Billing Information: * Visit Code: 11233 OFFICE OUTPATIENT VISIT 25 MINUTES DETAILED HISTORY AND EXAM/MODERATE MEDICAL DECISION MAKING. * Procedure Codes: M1357 Pt w/red suic idea 120 days. G2211 VISIT COMPLEXITY INHERENT TO ONGOING CARE RELATED TO A PATIENT'S SINGLE, SERIOUS CONDITION OR A COMPLEX CONDITION. * Electronically co-signed by Kranthi Mazariegos MD on 09/18/2024 at 11:35 AM CDT Sign off status: Completed true * Provider: ALISON Lund Date: Generated for Fly ramirez/Justyna/Demarco on: 0 01/12/2025 10:14 PM CHICKEN VACCINATOR History and Physical Notes * HPI (History of Present Illness) Category Sub-Category Detail Notes Category Not es Depression screening PHQ-9 Little inte rest or pleasure in doing things: More than half the days Feeling down, depressed, or hopeless: Se veral days Trouble falling or staying asleep, or sl eeping too much: Nearly every day Feeling tired or having little energy: M ore than half the days Poor appetite or overeating: Nearly ever y day Feeling bad about yourself o r that you are a failure, or have let yourself or your family down: Several days Trouble concentrating on thi ngs, such as reading the newspaper or watching television: Several days Moving or speaking so slowly that other people could have noticed; or the opposite, being so fidgety or restless that you have been moving around a lot more than usual: Not at all Thoughts that you would be b jose off or of hurting yourself in some way: Not at all Total Score: 13 Interpretation: Moderate Depression Depression Screening MAYANK-7 (2018 Edition) Feelin g nervous, anxious, or on edge: Several days Not being able to stop or control worryi ng: Not at all Worrying too much about different things : Several days Trouble relaxing: Several days Being so restless that it is hard to sit still: Several days Becoming easily annoyed or irritable: Se veral days Feeling afraid as if something awful pamela ht happen: Several days Total MAYANK-7 Score: 6 If you checked any problems, how difficult have they made it for you to do your work, take care of things at home, or get along with other people?: Somewhat difficult Interpretation of Total: (5 to 9) Mild Examination Category Sub-Category Detail Notes Category Not es General Examination Psych: alert and or iented x 3, cognitive function intact, cooperative with exam, maintains good eye contact, with good judgement and insight, normal affect / mood, with no auditory or visual hallucinations, speech is clear and coherent, thought process is logical and goal directed without suidical ideation or delusions - Mental Status Examination: - Patient reports a significant improvement in depression, rating it around 2-3 on a scale of 10. - Anxiety levels have also improved markedly. - No suicidal ideation, delusions, hallucinations, paranoia, or thoughts of harming self or others reported. - No recent episodes of panic attacks, nervous breakdowns, or increased irritability. - Denies any mental or physical abuse. - No loss of appetite or eating disorders noted. - Describes using social media deletion as a coping mechanism and has been avoiding excessive social media engagement. - Reports improved sleep. - Partner has noticed a significant improvement in patient's condition. - Vital Signs: Review note - Physical Examination: - General: Occasional nausea and inability to function, attributed to stress. - Neurological: No issues with concentration or memory reported. - Gastrointestinal: Occasional severe nause.
--- OUTSIDE RECORDS SUMMARY | 2025-01-12 22:14 | XMS_ITS | Patient Health Summary ---
Author Organization [facility] [employer] Address [address] [place] [address] Care Team Providers Care Charge Master Coordinator Name Role Phone Dillan Woody MD Primary Care Provider [phone] [facility],non-owned Affiliates and Associated Physician Practices is amultiple site organization consisting of ambulatory clinics and hospital sitesin [place], [place], [place] and [place]. This disclosure is being madepursuant to the Care Everywhere program and may not contain all information available regarding this patient. Last updated 18.[facility] Allergies * Ciprofloxacin(Rash at infusion [...] daily. * Cyanocobalamin (NASCOBAL) 500 MCG/0.1ML SOLN [place] 1 [...] 36.3 C (97.3 F) 01/07/2011 8:00 AM CHOIR MEMBER Respiratory Rate 18 01/07/2011 8:00 AM CHOIR MEMBER Oxygen Saturation 100% 01/05/2011 8:00 PM CHOIR MEMBER Inhaled Oxygen Concentration - - Weight 73.9 [...] ICD9 [facility] ACCOUNT BILL Comment:V72.31 ; Routine showroom sales assistant ecological examination Performed by [facility] ACCOUNT BILL [...] Thin Prep Vial Resulting Agency Comment [facility] [address] [id number] Rock Bullock MD LAB - PATHOLOGY/CYTO LOGY ORDERABLES [facility] ACCOUNT BILL * MAMMO DIAG DIRECT DIGITAL IMAGE UNIL LEFT (08/13/2011) Anatomical Region Laterality Modality Left Other Rock Bullock MD MAMMO ORDERABLES * MAMMOGRAPHY ORDER (07/17/2011) Anatomical Region Laterality Modality Other Rock Bullock MD MAMMO ORDERABLES * (ABNORMAL) CBC W AUTO DIFFERENTIAL (01/06/2011 4:05 AM CHOIR MEMBER) WBC 10.0 4.5 - 11.0 1000/mm3 [facility] RBC 2.74(L) 4.2 - 5.4 10X6 [facility] Hemoglobin 10.1(L) 12.0 - 16.0 gm/dl [facility] Hematocrit 29.9(L) 36.0 - 48.0 % [facility] MCV 109.1(H) 80.0 - 99.0 fl [facility] MCH 36.9(H) 25.0 - 31.0 pg [facility] MCHC 33.8 32.0 - 36.0 gm/dl [facility] RDW 14.1 11.5 - 14.5 % [facility] Platelet Count 205 130.0 - 400.0 1000/mm3 [facility] Granulocytes % 78.9(H) 40.0 - 70.0 % [facility] Lymphocytes % 9.8(L) 22.0 - 40.0 % [facility] Monocytes % 10.8(H) 2.0 - 10.0 % [facility] Eosinophils % 0.2 0.0 - 6.0 % [facility] Basophils % 0.3 0.0 - 3.0 % [facility] Granulocytes Absolute 7.92(H) 1.8 - 7.7 [facility] Lymphocytes Absolute 0.98(L) 1.0 - 5.4 [facility] Monocytes Absolute 1.08 0.1 - 1.1 [facility] Eosinophils Absolute 0.02 0.0 - 0.7 [facility] Basophils Absolute 0.03 0.0 - 0.2 [facility] Comment Manual Diff Not Indicated [facility] BLOOD SPECIMEN / Unknown 01/06/2011 4:05 AM [facility] 01/06/2011 4:33 AM CHO[facility] Rock Bullock MD LAB - HEMATOLOGY ORD ERABLES [facility] [address] [place] [address] * XR ABDOMEN 1 VW (01/05/2011 9:58 AM CHOIR MEMBER) Anatomical Region Laterality Modality Abdomen Radiographic Kavya ging 01/05/2011 10:1 4 AM CHOIR [facility] Impressions 01/05/2011 10:14 AM CHOIR MEMBER Normal KUB Narrative 01/05/2011 10:14 AM CHOIR MEMBER Abdomen KUB Indication: Evaluate for retained surgical [...] GROSS + MICRO EXAM (01/05/2011 9:06 AM CHOIR MEMBER) [facility] Surgeon Dr. Bullock [facility] Grossed By ANANTH VELA [facility] Gross Report [facility] Comment: SURGEON: Dr. Bullock COPY [...] up to about 0.7 cm in diameter. Technology Sales Specialist sections of the specimen are submitted as follows: A-B. Anterior and posterior cervix. C-D. Anterior and posterior endomyometrium and serosa. E-H. Possible myomas with largest myoma in G and H. I-J. Left and right ovaries and tubes. LW/angie Microscopic Examination [facility] Comment: MICROSCOPIC: The section of [...] The fallopian tubes are normal. BYRON/yoel Diagnosis [facility] Comment: DIAGNOSIS: 1. Uterus, total abdominal hysterectomy with bilateral salpingo- oophorectomy: Cervix: -- No pathologic diagnosis Endometrium: -- Weakly proliferative pattern Myometrium: -- Leiomyomata -- Adenomyosis Ovary, left: -- Follicular cyst Ovary, right: -- Hemorrhagic corpus luteum Fallopian tubes, bilateral: -- No pathologic diagnosis BYRON/yoel Released by Prema BENITEZ [facility] CPT Code 96426 [facility] HYSTERECTOMY AND BILATERAL SALPINGO-OOPHORECTOM Y SPECIMEN / Unknown 01/05/2011 9:06 AM CHOIR [facility]BER 01/05/2011 9:06 AM CHO[facility] Rock Bullock MD LAB - PATHOLOGY/CYTO LOGY ORDERABLES Performing Organization Address [facility] Co de Phone Number [facility] [address] [place] [address] * HCG URINE QUALITATIVE - POINT OF CARE (01/05/2011 6:15 AM CHOIR MEMBER) HCG Qual Urine neg Negative [facility] POCT TESTING QC Verified yes Yes [facility] POC T TESTING Urine specimen (specimen) URINE / Unknown 01/05/2011 6:15 AM CHOIR MEMBER Paul Stevenson MD LAB - POINT OF CARE ORDERABLES Performing Organization Address [facility] Co de Phone Number [facility]CT [facility] [address] [place] [address] * HGB HCT PANEL (01/05/2011 6:10 AM CHOIR MEMBER) Hemoglobin 13.2 12.0 - 16.0 gm/dl [facility] Hematocrit 38.0 36.0 - 48.0 % [facility] BLOOD SPECIMEN / Unknown 01/05/2011 6:10 AM CHOIR [facility]BER 01/05/2011 6:18 AM CHO[facility] Rock Bullock MD LAB - HEMATOLOGY ORD ERABLES Performing Organization Address [facility] de Phone Number [facility] [address] [place] [address] * US PELVIS WITH TRANSVAG NON OB (12/26/2010 8:19 AM CHOIR MEMBER) Anatomical Region Laterality Modality Pelvis Ultrasound 12/26/2010 10:1 6 AM CHOIR MEMBER Impressions 12/26/2010 10:31 AM CHOIR MEMBER The uterus is grossly enlarged, lobulated in contour, and heterogeneous in echotexture, consistent with the presence of multiple myomata. The ovaries are sonographically unremarkable. Narrative 12/26/2010 10:31 AM CHOIR [facility]BER ULTRASOUND PELVIS - TRANSABDOMINAL/TRANSVAGINAL WITH DOPPLER Indication: [...] 2.03 cm in size. Procedure Note Radha Sohrt MD - 12/26/2010 ULTRASOUND PELVIS - TRANSABDOMINAL/TRANSVAGINAL [...] unremarkable. Rock Bullock MD ORDERABLES Care Teams Charge Master Coordinator Relationship Specialty Start Date End Date Dillan Woody MD PCP - General Internal Medicine 02/26/12
--- OUTSIDE RECORDS SUMMARY | 2025-01-12 22:14 | XMS_ITS | Referral Summary ---
Author Organization [facility] [employer] Address [address] [place] [address] Care Team Providers Care Crane Operator Cab Name Role Phone Dillan Woody MD Primary Care Provider Source Comments [facility] [employer],non-owned Affiliates and Associated Physician Practices is amultiple site organization consisting of ambulatory clinics and hospital sitesin [place], [place], [place] and [place]. This disclosure is being madepursuant to the Care Everywhere program and may not contain all information available regarding this patient. Last updated 18.[facility] [employer] Allergies Active Allergy Reactions Criticality Noted Date [...] daily. Active Cyanocobalamin (NASCOBAL) 500 MCG/0.1ML SOLN [place] 1 Squirt into the nose every 7 [...] 36.3 C (97.3 F) 01/07/2011 8:00 AM [facility] Respiratory Rate 18 01/07/2011 8:00 AM [facility] Oxygen Saturation 100% 01/05/2011 8:00 PM [facility] HAND Inhaled Oxygen Concentration - - Weight 73.9 [...] ICD9 [facility] ACCOUNT BILL Comment:V72.31 ; Routine rod buster ecological examination Performed by [facility] ACCOUNT BILL [...] CYTYC Thin Prep Vial Resulting Agency Comment [facility] [phone] Rock Bullock MD LAB - PATHOLOGY/CYTO LOGY [...] 10:33 PM 01/04/2011 8:00 PM Care Teams Crane Operator Cab Relationship Specialty Start Date End Date Dillan Woody MD PCP - General Internal Medicine 02/26/12
--- OUTSIDE RECORDS SUMMARY | 2025-01-12 22:14 | XMS_ITS | Encounter Summary ---
Author Organization [facility] Address [address] [place] [address] Care Team Providers Care Shellfish Harvester Name Role Phone PriscilaTessy Primary Care Provider +1 [phone] Encounter Details Date Type Department Care Team (Latest Contact Info) Description 12/06/2008 Outpatient Historical HIS [facility] Sujatha Ledesma MD [address] [place] [address] Regional Enteritis of Large Intestine (CMS/HCC) Social History Tobacco Use Types Packs/Day Years Used Date Smoking Tobacco: Never Assessed Comments Unknown Sex and Gender Information Value Date Recorded Sex Assigned at Not on file Legal Sex Female 5:28 AM EMPLOYMENT AND CLAIMS AIDE Gender Identity Not on file Sexual Orientation Not on file documented as of this encounter Plan of Treatment Not on file documented as of this encounter Procedures Procedure Name Priority Date/Time Associated Diagnosis Comments MISCELLANEOUS LAB TEST Routine 9 10:17 AM EMPLOYMENT AND CLAIMS AIDE documented in this encounter Results * MISCELLANEOUS LAB TEST (12/06/2008 10:17 AM EMPLOYMENT AND CLAIMS AIDE) TEST NAME TPMT [facility] SPECIMEN TYPE Blood [facility] MISCELLANEOUS LAB TEST Name of Test: TPMT Test Result: TPMT*1/TPMT*1 Alleles present are associated with Normal Enzyme Activity Reference Range: TPMT*1/TPMT*1 Test Performed By: [employer] [place], [place] [facility] Specimen of unknown material (specimen) 12/06/2008 10:17 AM EMPLOYMENT AND CLAIMS AIDE 12/06/2008 10:34 AM EMPLOYMENT AND CLAIMS AIDE Narrative INTERFACE SYSTEM - 12/09/2008 8:39 AM EMPLOYMENT AND CLAIMS AIDE Name of test:tpmt genotype us Sujatha Prado MD CHEMISTRY ORDERABLES Edited INTERFACE SYSTEM Refer to clinic/hospital department [facility] CLIA# [id number] [address] [place] [address] documented in this encounter Visit Diagnoses Diagnosis Regional enteritis of large intestine (CMS/HCC) Regional enteritis of large intestine documented in this encounter Care Teams Shellfish Harvester Relationship Specialty Start Date End Date Tessy Francois DO [address] [place] [address] PCP - General 11/17/15 documented as of this encounter
--- OUTSIDE RECORDS SUMMARY | 2025-01-12 22:14 | XMS_ITS | Encounter Summary ---
Author Organization [facility] Address [address] [place] [address] Care Team Providers Care Worship Leader Name Role Phone Priscila Tessy Britte Primary Care Provider [phone] Encounter Details Date Type Department Care Team (Late st Contact Info) Description 09/24/2008 Outpatient Historical [facility] Nadia Sarabia MD Social History Tobacco Use Types Packs/Day Years Used Date Smoking Tobacco: Never Assessed Comments Unknown Sex and Gender Information Value Date Recorded Sex Assigned at Not on file Legal Sex Female 5:28 AM SPRINKLER FITTER APPRENTICE Gender Identity Not on file Sexual Orientation [...] AM CDT Narrative 09/28/2008 11:12 AM CDT [facility] [address] [place], [place] [address] Admit Date: 09/24/2008 ZEINA COLE Sex: F Admit Prov: NADIA SARABIA Date: 1960 Primary Care Prov: NADIA SARABIA CMRN: [id number] Room: [facility] SSN: [id number] IMAGING SERVICES Ordering Prov: N/A Accession Number: [id number] Interpretation SMALL BOWEL SERIES, 09/28/2008 Clinical History: Crohn's disease, right lower quadrant abdominal pain, possible jejunal intussusception seen on recent abdominal CT. Findings: A preliminary abdominal operator catalyst concentration radiograph is not remarkable. Following oral administration [...] Procedure Note Tristan Cates MD - 09/28/2008 [facility] [address] [place], [place] [address] Admit Date: 09/24/2008 COLE ZEINA Carolina Sex: F Admit Prov: NADIA SARABIA Date: 1960 Primary Care Prov: NADIA SARABIA CMRN: [id number] Room: [facility] SSN: [id number] IMAGING SERVICES Ordering Prov: N/A Interpretation SMALL BOWEL SERIES, 09/28/2008 Clinical History: Crohn's disease, right lower quadrant abdominalpain, possible jejunal intussusception seen on recent abdominal CT. Findings: A preliminary abdominal operator catalyst concentration radiograph is notremarkable. Following oral administration of [...] PHOSPHATASE 66 35 - 104 U/L [facility] ALT 14 0 - 31 U/L [facility] CHLORIDE 98 96 - 108 mmol/L [facility] AST 15 12 - 32 U/L [facility] BUN 7 6 - 20 mg/dL [facility] TOTAL PROTEIN 6.5 6.3 - 8.6 g/dL [facility] BILIRUBIN TOTAL 0.3 0.2 - 1.0 mg/dL [facility] CREATININE 0.76 0.51 - 0.95 mg/dL [facility] CO2 27 22 - 30 mmol/L [facility] ALBUMIN 3.7 3.4 - 4.8 g/dL [facility] SODIUM 132(L) 135 - 145 mmol/L [facility] CALCIUM 8.8 8.6 - 10.2 mg/dL [facility] GLUCOSE 123(H) 65 - 99 mg/dL [facility] POTASSIUM 3.2(L) 3.5 - 4.9 mmol/L [facility] GFR, >60 >=60 mL/min/1. 7 sq meter [facility] GFR >60 >=60 mL/min/1. 7 sq meter [facility] Comment: Modification of Diet in Renal Disease (MDRD) study formula. Estimated GFR rate interpretative information for both Americans and non- Americans is available on the [facility] Intranet at: [email or web address] Select: Lab Policies and Procedures Select: Reference Ranges - GFR Blood specimen (specimen) 09/24/2008 2:27 PM CDT 09/24/2008 2:33 PM CDT Nadia Sarabia MD CHEMISTRY ORDERABLES Edited INTERFACE SYSTEM Refer to clinic/hospital department [facility] CLIA# [id number] [address] [facility] [address] [address] * (ABNORMAL) CBC WITH DIFFERENTIAL (09/24/2008 2:27 PM CDT) WBC 8.0 4.0 - 9.8 K/uL [facility] MCH 32.1 27.2 - 32.6 pg [facility] MPV 10.2 9.3 - 12.4 fL [facility] HEMATOCRIT 38.8 35.5 - 44.0 % [facility] RDW-STDEV 43.3 37.1 - 48.7 fL [facility] RBC 4.02 3.90 - 4.90 M/uL [facility] MCHC 33.2 31.5 - 35.5 % [facility] MCV 96.5 82.0 - 99.0 fL [facility] PLATELETS 312 140 - 350 K/uL [facility] HEMOGLOBIN 12.9 11.8 - 14.8 g/dL [facility] RDW 12.3 11.5 - 14.5 % [facility] MONOCYTES 9 3 - 13 % [facility] MONOCYTE ABSOLUTE 0.75 0.10 - 1.30 K/uL [facility] NEUTROPHILS 71(H) 45 - 70 % [facility] NEUTROPHIL ABSOLUTE 5.70 1.90 - 7.00 K/uL [facility] EOSINOPHILS 3 0 - 7 % [facility] EOSINOPHIL ABSOLUTE 0.20 0.00 - 0.70 K/uL [facility] LYMPHOCYTES 16 16 - 45 % [facility] LYMPHOCYTE ABSOLUTE 1.30 0.70 - 4.50 K/uL [facility] BASOPHILS 1 0 - 2 % [facility] BASOPHILS ABSOLUTE 0.05 0.00 - 0.20 K/uL [facility] Blood specimen (specimen) 09/24/2008 2:27 PM CDT 09/24/2008 2:33 PM CDT us Nadia Sarabia MD HEMATOLOGY ORDERABLES Edited INTERFACE SYSTEM Refer to clinic/hospital department [facility] CLIA# [id number] [address] [facility] [address] [place] [address] [address] * CT ABDOMEN PELVIS W CONTRAST (09/24/2008 2:12 PM CDT) Anatomical Region Laterality Modality Abdomen Other 09/24/2008 2:12 PM CDT Narrative 09/24/2008 4:46 PM CDT [facility] [address] [place], [place] [address] Admit Date: 09/24/2008 ZEINA COLE Sex: F Admit Prov: NADIA SARABIA Date: 1960 Primary Care Prov: NADIA SARABIA CMRN: [id number] Room: [facility] SSN: [id number] IMAGING SERVICES Ordering Prov: N/A Accession Number: [id number] Interpretation CT SCAN OF THE ABDOMEN AND [...] Procedure Note Olimpia Cavanaugh MD - 09/24/2008 [facility] [address] [place], [place] [address] Admit Date: 09/24/2008 ZEINA COLE Sex: F Admit Prov: NADIA SARABIA Date: 1960 Primary Care Prov: NADIA SARABIA CMRN: [id number] Room: [facility] SSN: [id number] IMAGING SERVICES Ordering Prov: N/A Interpretation CT [...] POC 0.8 0.6 - 1.3 mg/dL [facility] GFR, >60 >=60 mL/min/1.7 sq meter [facility] GFR >60 >=60 mL/min/1.7 sq meter [facility] Capillary blood specimen (specimen) 09/24/2008 2:05 PM CDT 09/24/2008 2:05 PM CDT us Nadia Sarabia MD POINT OF CARE TESTING Edited INTERFACE SYSTEM Refer to clinic/hospital department [facility] CLIA# [id number] [address] [place] [address] documented in this encounter Visit Diagnoses Not on filedocumented in this encounter Care Teams Worship Leader Relationship Specialty Start Date End Date Tessy Francois DO [address] [place] [address] PCP - General 11/17/15 documented as of this encounter
--- OUTSIDE RECORDS SUMMARY | 2025-01-12 22:14 | XMS_ITS | Patient Health Record ---
Author Organization [employer] Address [address] [place] [address] Care Team Providers Care Communications Equipment Installer Name Role Phone Tessy Tejada DO Primary Care Provider James labmykel Allergies Allergen (clinical drug ingredient) Drug/Non Drug Allergy documented on EMR Reaction Allergy Type Onset Date Status budesonide Budesonide SVT Drug Allergy Activ e acetaminophen / hydrocodone Hydrocodone-Acetami nophen rash Drug Allergy Active Keflex swelling of throat Drug Allergy Active spironolactone Spironolactone palpitations Drug Allergy Active Reason For Referral No Information Medications Medication SIG (Take, Route, Frequency, Duration) Notes Start Date End Date Status azaTHIOprine 50 MG TAKE TWO TABLETS BY MOUTH ONCE DAILY for 90 Active Delzicol 400 MG 2 capsule Orally Three times a day for 30 Active dilTIAZem HCl Active Fluoxetine Active Delzicol 400 MG TAKE TWO CAPSULES BY MOUTH THREE TIMES A DAY for 30 Active OTC/Vitamins Probotic, D3 200 0, Azo Yeart Plus, Ector Aspirin Active azaTHIOprine 50 MG Take two tablets Orally Once daily for 90 Active Estradiol Active Nascobal Active Social History Tobacco Use: Social History Observation Description Date Details (start date - stop date) Current Smoker NA - NA Tobacco Use/Smoking Question Answer Notes Are you a current smoker Problems Problem Type SNOMED Code ICD Code Onset Dates Problem Status W/U Status Risk Notes Problem 696402489 Nausea (R11.0) Active confirmed Problem 26668662 Diarrhea (R19.7) Active confirmed Problem 891520782 Weight loss (R63.4) Active confirmed Problem 111207749 Gastroesophageal reflux disease, esophagitis presence not specified (K21.9) Active confirmed Problem 541324333 Bloating (R14.0) Active confirmed Problem 56836218 Abdominal crampi ng (R10.9) Active confirmed Problem 68499804 Crohns disease o f both small and large intestine without complication (K50.80) Active confirmed Problem 838660561 Mild acid reflux (K21.9) Active confirmed Problem 93232535 Joint pain (M25.50) Active confirmed Problem 78399082 Crohn disease (K50.90) Active confirmed Diagnosed around 2001. Colonoscopy in January 2016 showed quiescent colitis with normal ileum. The disease and its natural history, potential complications, treatment options were reviewed. Current medical regime was discussed. The importance of having labs checked at three-month interval while azathioprine was being used was again reviewed. Plan Of Treatment Pending Test Test Name Order Date CMP: COMPLETE METABOLIC PANEL 03/03/2018 Future Test Test Name Order Date CMP: COMPLETE METABOLIC PANEL 08/03/2017 CBC With Differential/Platelet 7 Insurance Providers Payer Name Payer Address Payer Phone Subscriber Number Group Number Insured Name Patient Relationship to Insured Coverage Start Date Coverage End Date [facility] Choice/ choice Plus E2 [address] [place] [address] [id number] Spiek Cole Spouse - patient is the spouse of the insured Medical (General) History Medical History History ICD Code Crohn's disease Kidney problems Colon polyps Surgical History Surgery Date(Month/Year) Colonoscopy 01/2016 section Breast augmentation Hysterectomy Foot Hand Knee Shoulder Hospitalization History Reason Date(Month/Year) Clostridium difficile Kidney infection
--- OUTSIDE RECORDS SUMMARY | 2025-01-12 22:14 | XMS_ITS | Encounter Summary ---
Author Organization [employer] Address [address] [place] [address] Care Team Providers Care Guide Changer Name Role Phone Tessy Francois DO Primary Care Provider [phone] Encounter Details Date Type Department Care Team (Late st Contact Info) Description 10/07/2008 Outpatient Historical [facility] Madelyn Rae MD [address] [facility] [address] [place] [address] Regional Enteritis of Unspecified Site (CMS/HCC) Social History Tobacco Use Types Packs/Day Years Used Date Smoking Tobacco: Never Assessed Comments Unknown Sex and Gender Information Value Date Recorded Sex Assigned at Not on file Legal Sex Female 5:28 AM PUBLIC AFFAIRS MANAGER Gender Identity Not on file Sexual Orientation Not on file documented as of this encounter Plan of Treatment Not on file documented as of this encounter Procedures Procedure Name Priority Date/Time Associated Diagnosis Comments PATHOLOGY Routine 10/07/2008 3:22 PM PUBLIC AFFAIRS MANAGER STOOL CULTURE (SILVANO,SHIG,CAMPY,ECO 157) Routine 10/07/2008 3:17 PM PUBLIC AFFAIRS MANAGER C. DIFFICILE DETECTION Routine 10/07/2008 3:17 PM PUBLIC AFFAIRS MANAGER OVA AND PARASITE SCREEN Routine 10/07/2008 3:17 PM PUBLIC AFFAIRS MANAGER POC , URINE Routine 10/07/2008 1:40 PM PUBLIC AFFAIRS MANAGER documented in this encounter Results * PATHOLOGY (10/07/2008 3:22 PM PUBLIC AFFAIRS MANAGER) FINAL REPORT [facility] [address] [place], [place] [address] Patient: ZEINA COLE : 1960 Procedure Date: 10/07/2008 Accession Date: 10/07/2008 Case No: [id number] Ordering Dr: MADELYN RAE Case types AW, BW, FW, NW and SH are performed by [facility], [place], [place] SURGICAL PATHOLOGY & NON-GYNECOLOGIC CYTOPATHOLOGY REPORT [...] 04:36 pm Microscopic: The slides are labeled [id number], Zeina Cole. Sections of the left colon [...] 09:19 am INTERFACE SYSTEM 10/07/2008 3:22 PM PUBLIC AFFAIRS MANAGER us Madelyn Rae MD PATHOLOGY/CYTOLOGY ORDERABLE S Final Result INTERFACE SYSTEM Refer to clinic/hospital department * OVA AND PARASITE SCREEN (10/07/2008 3:17 PM PUBLIC AFFAIRS MANAGER) PRELIMINARY REPORT Pending [facility] FINAL REPORT Concentration : No ova or parasites seen. Trichrome: No ova or parasites seen. [facility] 10/07/2008 3:17 PM PUBLIC AFFAIRS MANAGER 10/07/2008 4:43 PM PUBLIC AFFAIRS MANAGER Narrative INTERFACE SYSTEM - 10/14/2008 10:48 AM PUBLIC AFFAIRS MANAGER fax to dr rae Performed by [facility], [address] [place] [address] Performed by [employer] [address] Madelyn Rae MD MICROBIOLOGY - GENERAL ORDER DIVINE Final Result Performing Organization Address [facility] Phone Number INTERFACE SYSTEM Refer to clinic/hospital department [facility] CLIA# [id number] [address] [place] [address] * STOOL CULTURE (SILVANO,SHIG,CAMPY,[id number]) (10/07/2008 3:17 PM PUBLIC AFFAIRS MANAGER) PRELIMINARY REPORT No Salmonella isolated. No Shigella isolated. No Escherichia coli serogroup O157:H[address] [facility] FINAL REPORT No Salmonella isolated. No Shigella isolated. No Escherichia coli serogroup O157:H7 isolated. No Camplylobacter isolated. [facility] 10/07/2008 3:17 PM PUBLIC AFFAIRS MANAGER 10/07/2008 4:43 PM PUBLIC AFFAIRS MANAGER Narrative INTERFACE SYSTEM - 10/10/2008 7:51 AM PUBLIC AFFAIRS MANAGER fax to dr rae Madelyn Rae MD MICROBIOLOGY - GENERAL ORDER DIVINE Final Result Performing Organization Address [facility] Co de Phone Number INTERFACE SYSTEM Refer to clinic/hospital department [facility] CLIA# [id number] [address] [place] [address] * CLOSTRIDIUM DIFFICILE TOXIN (10/07/2008 3:17 PM PUBLIC AFFAIRS MANAGER) FINAL REPORT NO Clostridium difficile Toxin A or B detected by EIA. A negative result does not rule out C. difficile associated diarrhea or colitis. [facility] Stool specimen (specimen) 10/07/2008 3:17 PM PUBLIC AFFAIRS MANAGER 10/07/2008 4:43 PM PUBLIC AFFAIRS MANAGER Narrative INTERFACE SYSTEM - 10/08/2008 3:11 PM PUBLIC AFFAIRS MANAGER fax to dr rae Madelyn Rae MD MICROBIOLOGY - GENERAL ORDER DIVINE Final Result Performing Organization Address [facility] de Phone Number INTERFACE SYSTEM Refer to clinic/hospital department [facility] CLIA# [id number] [address] [place] [address] * POC , URINE (10/07/2008 1:40 PM PUBLIC AFFAIRS MANAGER) , URINE POC Negative Negative [facility] Urine specimen (specimen) 10/07/2008 1:40 PM PUBLIC AFFAIRS MANAGER 10/07/2008 1:40 PM PUBLIC AFFAIRS MANAGER Madelyn Rae MD POINT OF CARE TESTING Final Result Performing Organization Address [facility] de Phone Number INTERFACE SYSTEM Refer to clinic/hospital department [facility] CLIA# [id number] [address] [place] [address] documented in this encounter Visit Diagnoses Diagnosis Regional enteritis of unspecified site (CMS/HCC) Regional enteritis of unspecified site documented in this encounter Care Teams Guide Changer Relationship Specialty Start Date End Date Tessy Francois DO [address] [place] [address] PCP - General 11/17/15 documented as of this encounter
--- OUTSIDE RECORDS SUMMARY | 2025-01-12 22:14 | XMS_ITS | Encounter Summary ---
Author Organization [facility] Address [address] [place] [address] Care Team Providers Care Farm Agent Name Role Phone Priscila Tessydasha Mchugh Primary Care Provider [phone] Encounter Details Date Type Department Care Team (Late Contact Info) Description 10/23/2008 Outpatient Historical [facility] Sarabia, MD Mago Social History Tobacco Use Types Packs/Day Years Used Date Smoking Tobacco: Never Assessed Comments Unknown Sex and Gender Information Value Date Recorded Sex Assigned at Not on file Legal Sex Female 5:28 AM A P MECHANIC Gender Identity Not on file Sexual Orientation Not on file documented as of this encounter Plan of Treatment Not on file documented as of this encounter Procedures Procedure Name Priority Date/Time Associated Diagnosis Comments GLUCOSE TOLERANCE, 2 HR Routine 10/23/2008 10:30 AM A P MECHANIC GLUCOSE FARHAT NON-GEST FOR DIABETES 2 HR Routine 10/23/2008 10:30 AM A P MECHANIC GLUCOSE TOLERANCE, FASTING Routine 10/23/2008 8:18 AM A P MECHANIC BASIC METABOLIC PANEL Routine 10/23/2008 8:18 AM A P MECHANIC documented in this encounter Results * GLUCOSE FARHAT NON-GEST FOR DIABETES 2 HR (10/23/2008 10:30 AM A P MECHANIC) COMMENT See Additional Orderables [facility] Blood specimen (specimen) 10/23/2008 10:30 AM A P MECHANIC 10/23/2008 10:32 AM A P MECHANIC Mago Sarabia MD CHEMISTRY ORDERABLES Final R esult Performing Organization Address [facility] de Phone Number INTERFACE SYSTEM Refer to clinic/hospital department [facility] CLIA# [id number] [address] [place] [address] * GLUCOSE TOLERANCE, 2 HR (10/23/2008 10:30 AM A P MECHANIC) GLUCOSE, 2HR 135 <=139 mg/dL [facility] Blood specimen (specimen) 10/23/2008 10:30 AM A P MECHANIC 10/23/2008 10:32 AM A P MECHANIC Mago Sarabia MD CHEMISTRY ORDERABLES Final [facility] Performing Organization Address [facility] Phone Number INTERFACE SYSTEM Refer to clinic/hospital department [facility] CLIA# [id number] [address] [place] [address] [address] * BASIC METABOLIC PANEL (10/23/2008 8:18 AM A P MECHANIC) CHLORIDE 103 96 - 108 mmol/L [facility] GLUCOSE 86 65 - 99 mg/dL [facility] SODIUM 141 135 - 145 mmol/L [facility] CALCIUM 8.6 8.6 - 10.2 mg/dL [facility] CO2 28 22 - 30 mmol/L [facility] CREATININE 0.80 0.51 - 0.95 mg/dL [facility] POTASSIUM 3.9 3.5 - 4.9 mmol/L [facility] BUN 11 6 - 20 mg/dL [facility] GFR, >60 >=60 mL/min/1.7 sq meter [facility] GFR >60 >=60 mL/min/1.7 sq meter [facility] Comment: ansiModification of Diet in Renal Disease (MDRD) study formula. Estimated GFR rate interpretative information for both Americans and non- Americans is available on the [facility] Intranet at: [email or web address] Select: Lab Policies and Procedures Select: Reference Ranges - GFR Blood specimen (specimen) 10/23/2008 8:18 AM A P MECHANIC 10/23/2008 9:00 AM A P MECHANIC Mago Sarabia MD CHEMISTRY ORDERABLES Edited Performing Organization Address [facility] de Phone Number INTERFACE SYSTEM Refer to clinic/hospital department [facility] CLIA# [id number] [address] [place] [address] * GLUCOSE TOLERANCE, FASTING (10/23/2008 8:18 AM A P MECHANIC) GTT INTERP, NON-GESTATION AL Based on 75 g dose: Type 1 or 2 Diabetes Mellitus Criteria: Fasting (Baseline): > = 126 mg/dL or 2 hour specimen: > = 200 mg/dL Impaired Glucose Metabolism Criteria: Fasting (Baseline): 100 - 125 mg/dL 2 hour specimen: 140 - 199 mg/dL [facility] GLUCOSE FASTING 86 <=99 mg/dL [facility] Blood specimen (specimen) 10/23/2008 8:18 AM A P MECHANIC 10/23/2008 9:00 AM A P MECHANIC us Mago Sarabia MD CHEMISTRY ORDERABLES Final R esult Performing Organization Address [facility] de Phone Number INTERFACE SYSTEM Refer to clinic/hospital department [facility] CLIA# [id number] [address] [place] [address] documented in this encounter Visit Diagnoses Not on filedocumented in this encounter Care Teams Farm Agent Relationship Specialty Start Date End Date Tessy Francois DO [address] [place] [address] PCP - General 11/17/15 documented as of this encounter
--- OUTSIDE RECORDS SUMMARY | 2025-01-12 22:14 | XMS_ITS | Encounter Summary ---
Author Organization [facility] Address [address] [place] [address] Care Team Providers Care Engineering Aid Name Role Phone Priscila Tessy Britte Primary Care Provider +1 [phone] Encounter Details Date Type Department Care Team (Late st Contact Info) Description 10/26/2008 Outpatient Historical [facility] Mago Sarabia MD Social History Tobacco Use Types Packs/Day Years Used Date Smoking Tobacco: Never Assessed Comments Unknown Sex and Gender Information Value Date Recorded Sex Assigned at Not on file Legal Sex Female 5:28 AM RPG PROGRAMMER ANALYST Gender Identity Not on file Sexual Orientation Not on file documented as of this encounter Plan of Treatment Not on file documented as of this encounter Procedures Procedure Name Priority Date/Time Associated Diagnosis Comments STOOL CULTURE (SILVANO,SHIG,CAMPY,ECO1 [id number]) Routine 10/26/2008 7:52 AM RPG PROGRAMMER ANALYST C. DIFFICILE DETECTION Routine 10/26/2008 7:52 AM RPG PROGRAMMER ANALYST FECAL LEUKOCYTES STAIN Routine 10/26/2008 7:52 AM RPG PROGRAMMER ANALYST OVA AND PARASITE SCREEN Routine 10/26/2008 7:52 AM RPG PROGRAMMER ANALYST documented in this encounter Results * CLOSTRIDIUM DIFFICILE TOXIN (10/26/2008 7:52 AM RPG PROGRAMMER ANALYST) FINAL REPORT NO Clostridium difficile Toxin A or B detected by EIA. A negative result does not rule out C. difficile associated diarrhea or colitis. [facility] Stool specimen (specimen) 10/26/2008 7:52 AM RPG PROGRAMMER ANALYST 10/26/2008 8:13 AM RPG PROGRAMMER ANALYST us Sujatha Prado MD MICROBIOLOGY - GENERAL ORDERABL ES Final Result Performing Organization Address [facility] de Phone Number INTERFACE SYSTEM Refer to clinic/hospital department [facility] CLIA# [id number] [address] [place] [address] * OVA AND PARASITE SCREEN (10/26/2008 7:52 AM RPG PROGRAMMER ANALYST) PRELIMINARY REPORT Pending [facility] FINAL REPORT Concentration : No ova or parasites seen. Trichrome: No ova or parasites seen. [facility] Stool specimen (specimen) 10/26/2008 7:52 AM RPG PROGRAMMER ANALYST 10/26/2008 8:15 AM RPG PROGRAMMER ANALYST Narrative INTERFACE SYSTEM - 11/02/2008 7:09 AM RPG PROGRAMMER ANALYST Performed by [employer] [address] Performed by [employer] [address] us Sujatha Prado MD MICROBIOLOGY - GENERAL ORDERABL ES Final Result Performing Organization Address [facility] Phone Number INTERFACE SYSTEM Refer to clinic/hospital department [facility] CLIA# [id number] [address] [place] [address] * FECAL LEUKOCYTES STAIN (10/26/2008 7:52 AM RPG PROGRAMMER ANALYST) FINAL REPORT Few WBC's seen [facility] Stool specimen (specimen) 10/26/2008 7:52 AM RPG PROGRAMMER ANALYST 10/26/2008 8:13 AM RPG PROGRAMMER ANALYST us Sujatha Prado MD MICROBIOLOGY - GENERAL ORDERABL ES Final Result Performing Organization Address [facility] de Phone Number INTERFACE SYSTEM Refer to clinic/hospital department [facility] CLIA# [id number] [address] [place] [address] * STOOL CULTURE (SILVANO,SHIG,CAMPY,[id number]) (10/26/2008 7:52 AM RPG PROGRAMMER ANALYST) PRELIMINARY REPORT No Salmonella isolated. No Shigella isolated. No Escherichia coli serogroup O157:H7 isolated. [facility] FINAL REPORT No Salmonella isolated. No Shigella isolated. No Escherichia coli serogroup O157:H7 isolated. No Camplylobacter isolated. [facility] Stool specimen (specimen) 10/26/2008 7:52 AM RPG PROGRAMMER ANALYST 10/26/2008 8:17 AM RPG PROGRAMMER ANALYST us Sujatha Prado MD MICROBIOLOGY - GENERAL ORDERABL ES Final Result INTERFACE SYSTEM Refer to clinic/hospital department [facility] CLIA# [id number] [address] [place] [address] documented in this encounter Visit Diagnoses Not on filedocumented in this encounter Care Teams Engineering Aid Relationship Specialty Start Date End Date Tessy Francois DO [address] [place] [address] PCP - General 11/17/15 documented as of this encounter
--- OUTSIDE RECORDS SUMMARY | 2025-01-12 22:14 | XMS_ITS | Encounter Summary ---
Author Organization [employer] Address [address] [place] [address] Care Team Providers Care Wheat Grower Name Role Phone Tessy Francois DO Primary Care Provider +1 [phone] Encounter Details Date Type Department Care Team (Late st Contact Info) Description 08/28/2007 Outpatient Historical [facility] Support [facility]. ([facility]) [address] [place] [address] Tristan Lance MD NO ADDRESS ON FILE Social History Tobacco Use Types Packs/Day Years Used Date Smoking Tobacco: Never Assessed Comments Unknown Sex and Gender Information Value Date Recorded Sex Assigned at Not on file Legal Sex Female 5:28 AM SALES ATTENDANT Gender Identity Not on file Sexual Orientation Not on file documented as of this encounter Plan of Treatment Not on file documented as of this encounter Visit Diagnoses Not on filedocumented in this encounter Care Teams Wheat Grower Relationship Specialty Start Date End Date Tessy Francois DO [address] [place] [address] PCP - General 11/17/15 documented as of this encounter
--- NOTE | 2025-01-12 22:19 | ECG_ITS ---
Test Date: 2025-01-12 22:22:50 Measurements Intervals [place] Rate: 70 P: 44 CO: 146 QRS: -25 QRSD: 99 T: 34 QT: 390 QTc: 422 Interpretive Statements SINUS RHYTHM DELAYED PRECORDIAL R/S TRANSITION ST DEVIATION AND MODERATE T-WAVE ABNORMALITY, CONSIDER ANTERIOR ISCHEMIA BASELINE ARTIFACT- I, II, AVR, AVL ABNORMAL ECG Compared to ECG 01/09/2025 07:45:58 NO SIGNIFICANT CHANGE Electronically Signed On 01-13-2025 07:02:56 BUCKET OPERATOR by Dell Dunham D.O.
[2025-01-12 22:35] LABS: Basophils Percent Auto 0.5 % (0.2-1.2); Eosinophils Absolute Auto 0.2 K/mm3 (0-0.3); Eosinophils Percent Auto 1.9 % (0-4.4); Hemoglobin 14.5 g/dL (12.0-15.0); Immature Granulocyte Absolute 0.02 K/mm3 (0.00-0.031); Immature Granulocyte Percent A 0.3 % (0-0.5); Lymphocytes Absolute Auto 1.99 K/mm3 (0.9-3.2); Lymphocytes Percent Auto 25.3 % (18.3-44.2); Mean Corpuscular HGB Conc 33.7 g/dl (32-36); Mean Corpuscular Hemoglobin 32.5 pg (26-34); Mean Corpuscular Volume 96.4 fl (80-100); Mean Platelet Volume 9.7 fl (7.4-10.4); Monocytes Absolute Auto 0.7 K/mm3 (0.1-0.6); Monocytes Percent Auto 8.2 % (2.6-8.5); Neutrophils Percent Auto 63.8 % (45.5-73.1); Platelet Count Result 334 k/mm3 (150-375); Red Blood Count 4.46 M/mm3 (4.2-5.4); Red Cell Distribution Width 12.3 % (11.5-14.5); White Blood Count 7.9 K/mm3 (4.5-10.0)
[2025-01-12 22:48] LABS: Alanine Aminotransferase 19 U/L (6-35); Albumin Level 4.2 g/dL (3.5-5.1); Alkaline Phosphatase 103 U/L (38-126); Anion Gap 11 mmol/L (4-12); Aspartate Amino Transferase 26 U/L (14-36); Bilirubin,Total 0.6 mg/dL (0.2-1.3); Blood Urea Nitrogen 8 mg/dL (7-17); Calcium 9.7 mg/dL (8.4-10.2); Carbon Dioxide 25 mmol/L (22-30); Chloride 104 mmol/L (98-107); Estimated CRCL calculation 89 ml/min; Estimated Glomerular Filt Rate > 60; Glucose 98 mg/dL (65-110); Potassium 3.8 mmol/L (3.4-5.0); Sodium 140 mmol/L (137-145)
[2025-01-12 23:00] LABS: Troponin I < 0.012 ng/mL (0.000-0.034)
[2025-01-13 00:14] VITALS: BP 178/96; PULSE 70; O2SAT 98
--- OUTSIDE RECORDS SUMMARY | 2025-01-13 01:08 | XMS_ITS | Encounter Summary ---
Author Organization [facility] Address [address] [place] [address] Care Team Providers Care Die Storage Worker Name Role Phone Priscila Tessydasha Mchugh Primary Care Provider [phone] [phone] Encounter Details Date Type Department Care Team (Latest Contact Info) Description 01/26/2009 Outpatient Historical HIS [facility] Sujatha Ledesma MD [address] [place] [address] Regional Enteritis of Unspecified Site (CMS/HCC) Social History Tobacco Use Types Packs/Day Years Used Date Smoking Tobacco: Never Assessed Comments Unknown Sex and Gender Information Value Date Recorded Sex Assigned at Not on file Legal Sex Female 5:28 AM BELLMAKER Gender Identity Not on file Sexual Orientation Not on file documented as of this encounter Plan of Treatment Not on file documented as of this encounter Procedures Procedure Name Priority Date/Time Associated Diagnosis Comments CBC WITH DIFFERENTIAL Routine 01/26/2009 4:41 PM BELLMAKER documented in this encounter Results * (ABNORMAL) CBC WITH DIFFERENTIAL (01/26/2009 4:41 PM BELLMAKER) RBC 4.32 3.90 - 4.90 M/uL [facility] MCHC 33.2 31.5 - 35.5 % [facility] MCV 97.0 82.0 - 99.0 fL [facility] PLATELETS 317 140 - 350 K/uL [facility] HEMOGLOBIN 13.9 11.8 - 14.8 g/dL [facility] RDW 13.2 11.5 - 14.5 % [facility] WBC 12.1(H) 4.0 - 9.8 K/uL [facility] MCH 32.2 27.2 - 32.6 pg [facility] MPV 10.5 9.3 - 12.4 fL [facility] HEMATOCRIT 41.9 35.5 - 44.0 % [facility] RDW-STDEV 46.5 37.1 - 48.7 fL [facility] MONOCYTE ABSOLUTE 0.82 0.10 - 1.30 K/uL [facility] LYMPHOCYTES 16 16 - 45 % [facility] NEUTROPHIL ABSOLUTE 9.16(H) 1.90 - 7.00 K/uL [facility] NEUTROPHILS 76(H) 45 - 70 % [facility] EOSINOPHILS 1 0 - 7 % [facility] EOSINOPHIL ABSOLUTE 0.06 0.00 - 0.70 K/uL [facility] LYMPHOCYTE ABSOLUTE 1.96 0.70 - 4.50 K/uL [facility] BASOPHILS 0 0 - 2 % [facility] BASOPHILS ABSOLUTE 0.05 0.00 - 0.20 K/uL [facility] MONOCYTES 7 3 - 13 % [facility] Blood specimen (specimen) 01/26/2009 4:41 PM BELLMAKER 01/26/2009 5:07 PM BELLMAKER us Sujatha Prado MD HEMATOLOGY ORDERABLES Edited INTERFACE SYSTEM Refer to clinic/hospital department [facility] CLIA# [id number] [address] [place] [address] documented in this encounter Visit Diagnoses Diagnosis Regional enteritis of unspecified site (CMS/HCC) Regional enteritis of unspecified site documented in this encounter Care Teams Die Storage Worker Relationship Specialty Start Date End Date Tessy Francois DO [address] [place] [address] PCP - General 11/17/15 documented as of this encounter
--- OUTSIDE RECORDS SUMMARY | 2025-01-13 01:08 | XMS_ITS | Encounter Summary ---
Author Organization [facility] Address [address] [place] [address] Care Team Providers Care Rail Car Repairman Name Role Phone Priscila Tessydasha Mchugh Primary Care Provider [phone] [phone] Encounter Details Date Type Department Care Team (Latest Contact Info) Description 05/18/2009 Outpatient Historical HIS [facility] Sujatha Ledesma MD [address] [place] [address] Regional Enteritis of Unspecified Site (CMS/HCC) Social History Tobacco Use Types Packs/Day Years Used Date Smoking Tobacco: Never Assessed Comments Unknown Sex and Gender Information Value Date Recorded Sex Assigned at Not on file Legal Sex Female 5:28 AM LOSS MITIGATION SPECIALIST Gender Identity Not on file Sexual [...] CDT) CALCIUM 9.6 8.6 - 10.2 mg/dL [facility] CHLORIDE 100 96 - 108 mmol/L [facility] ALBUMIN 4.4 3.4 - 4.8 g/dL [facility] CREATININE 0.67 0.51 - 0.95 mg/dL [facility] SODIUM 139 135 - 145 mmol/L [facility] ALT 13 0 - 31 U/L [facility] ALKALINE PHOSPHATASE 48 35 - 104 U/L [facility] BILIRUBIN TOTAL 0.4 0.2 - 1.0 mg/dL [facility] CO2 26 22 - 30 mmol/L [facility] TOTAL PROTEIN 7.2 6.3 - 8.6 g/dL [facility] POTASSIUM 4.0 3.5 - 4.9 mmol/L [facility] GLUCOSE 109(H) 65 - 99 mg/dL [facility] [...] and non- Americans is available on the [facility] Intranet at: [email or web address] Select: Lab Policies and Procedures Select: Reference Ranges - GFR 05/18/2009 4:50 PM CDT 05/18/2009 5:14 PM CDT us Sujatha Prado MD CHEMISTRY ORDERABLES Edited INTERFACE SYSTEM Refer to clinic/hospital department [facility] CLIA# [id number] [address] [place] [address] * C-REACTIVE PROTEIN (05/18/2009 4:50 PM CDT) [facility] CRP 0.5 0.0 - 0.8 mg/dL [facility] 05/18/2009 4:50 PM CDT 05/18/2009 5:14 PM CDT us Sujatha Prado MD CHEMISTRY ORDERABLES Final Resu lt INTERFACE SYSTEM Refer to clinic/hospital department [facility] CLIA# [id number] [address] [place] [address] * (ABNORMAL) CBC WITH DIFFERENTIAL (05/18/2009 4:50 PM CDT) [facility] RBC 3.59(L) 3.90 - 4.90 M/uL [facility] MCHC 33.9 31.5 - 35.5 % [facility] MCV 102.8(H) 82.0 - 99.[address] [facility] PLATELETS 373(H) 140 - 350 K/uL [facility] HEMOGLOBIN 12.5 11.8 - 14.8 g/dL [facility] RDW 14.1 11.5 - 14.5 % [facility] WBC 8.3 4.0 - 9.8 K/uL [facility] MCH 34.8(H) 27.2 - 32.[address] [facility] MPV 10.1 9.3 - 12.[address] [facility] HEMATOCRIT 36.9 35.5 - 44.0 % [facility] RDW-STDEV 52.3(H) 37.1 - 48.[address] [facility] MONOCYTES 7 3 - 13 % [facility] MONOCYTE ABSOLUTE 0.62 0.10 - 1.30 K/uL [facility] NEUTROPHILS 73(H) 45 - 70 % [facility] NEUTROPHIL ABSOLUTE 6.06 1.90 - 7.00 K/uL [facility] EOSINOPHILS 2 0 - 7 % [facility] EOSINOPHIL ABSOLUTE 0.16 0.00 - 0.70 K/uL [facility] LYMPHOCYTES 18 16 - 45 % [facility] LYMPHOCYTE ABSOLUTE 1.46 0.70 - 4.50 K/uL [facility] BASOPHILS 1 0 - 2 % [facility] BASOPHILS ABSOLUTE 0.04 0.00 - 0.20 K/uL [facility] 05/18/2009 4:50 PM CDT 05/18/2009 5:12 PM CDT us Sujatha Prado MD HEMATOLOGY ORDERABLES Edited INTERFACE SYSTEM Refer to clinic/hospital department [facility] CLIA# [id number] [address] [place] [address] documented in this encounter Visit Diagnoses Diagnosis Regional enteritis of unspecified site (CMS/HCC) Regional enteritis of unspecified site documented in this encounter Care Teams Rail Car Repairman Relationship Specialty Start Date End Date Tessy Francois DO [address] [place] [address] PCP - General 11/17/15 documented as of this encounter
--- OUTSIDE RECORDS SUMMARY | 2025-01-13 01:08 | XMS_ITS | Encounter Summary ---
Author Organization [facility] Address [address] [place] [address] Care Team Providers Care Maintenance Superintendent Name Role Phone Priscila Tessydasha Mchugh Primary Care Provider +1 [phone] Encounter Details Date Type Department Care Team (Latest Contact Info) Description 03/10/2009 Outpatient Historical HIS [facility] Sujatha Ledesma MD [address] [place] [address] Regional Enteritis of Unspecified Site (CMS/HCC) Social History Tobacco Use Types Packs/Day Years Used Date Smoking Tobacco: Never Assessed Comments Unknown Sex and Gender Information Value Date Recorded Sex Assigned at Not on file Legal Sex Female 5:28 AM MIGRATORY FARM HAND Gender Identity Not on file Sexual [...] CDT) CALCIUM 9.5 8.6 - 10.2 mg/dL [facility] CHLORIDE 101 96 - 108 mmol/L [facility] ALBUMIN 4.5 3.4 - 4.8 g/dL [facility] CREATININE 0.77 0.51 - 0.95 mg/dL [facility] SODIUM 138 135 - 145 mmol/L [facility] ALT 46(H) 0 - 31 U/L [facility] ALKALINE PHOSPHATASE 54 35 - 104 U/L [facility] BILIRUBIN TOTAL 0.3 0.2 - 1.0 mg/dL [facility] CO2 28 22 - 30 mmol/L [facility] TOTAL PROTEIN 7.2 6.3 - 8.6 g/dL [facility] POTASSIUM 3.9 3.5 - 4.9 mmol/L [facility] GLUCOSE 96 65 - 99 mg/dL [facility] AST 33(H) 12 - 32 U/L [facility] [...] the [facility] Intranet at: [email or web address] Select: Lab Policies and Procedures Select: Reference Ranges - GFR Blood specimen (specimen) 03/10/2009 2:33 PM CDT 03/10/2009 3:22 PM CDT Sujatha Prado MD CHEMISTRY ORDERABLES Edited INTERFACE SYSTEM Refer to clinic/hospital department [facility] CLIA# [id number] [address] [place] [place] [address] * (ABNORMAL) CBC WITH DIFFERENTIAL (03/10/2009 2:33 PM CDT) RBC 4.13 3.90 - 4.90 M/uL [facility] MCHC 32.7 31.5 - 35.5 % [facility] MCV 101.5(H) 82.0 - 99.0 fL [facility] PLATELETS 315 140 - 350 K/uL [facility] HEMOGLOBIN 13.7 11.8 - 14.8 g/dL [facility] RDW 14.3 11.5 - 14.5 % [facility] WBC 7.6 4.0 - 9.8 K/uL [facility] MCH 33.2(H) 27.2 - 32.6 pg [facility] MPV 10.5 9.3 - 12.4 fL [facility] HEMATOCRIT 41.9 35.5 - 44.0 % [facility] RDW-STDEV 52.8(H) 37.1 - 48.7 fL [facility] NEUTROPHILS 67 45 - 70 % [facility] NEUTROPHIL ABSOLUTE 5.13 1.90 - 7.00 K/uL [facility] EOSINOPHILS 2 0 - 7 % [facility] EOSINOPHIL ABSOLUTE 0.17 0.00 - 0.70 K/uL [facility] LYMPHOCYTES 21 16 - 45 % [facility] LYMPHOCYTE ABSOLUTE 1.60 0.70 - 4.50 K/uL [facility] BASOPHILS 1 0 - 2 % [facility] BASOPHILS ABSOLUTE 0.05 0.00 - 0.20 K/uL [facility] MONOCYTES 9 3 - 13 % [facility] MONOCYTE ABSOLUTE 0.66 0.10 - 1.30 K/uL [facility] Blood specimen (specimen) 03/10/2009 2:33 PM CDT 03/10/2009 3:24 PM CDT us Sujatha Prado MD HEMATOLOGY ORDERABLES Edited INTERFACE SYSTEM Refer to clinic/hospital department [facility] CLIA# [id number] [address] [place] [address] documented in this encounter Visit Diagnoses Diagnosis Regional enteritis of unspecified site (CMS/HCC) Regional enteritis of unspecified site documented in this encounter Care Teams Maintenance Superintendent Relationship Specialty Start Date End Date Tessy Francois DO [address] [place] [address] PCP - General 11/17/15 documented as of this encounter
--- OUTSIDE RECORDS SUMMARY | 2025-01-13 01:08 | XMS_ITS | Encounter Summary ---
Author Organization [facility] Address [address] [place] [address] Care Team Providers Care Machine Technician Name Role Phone Priscila Tessydasha Mchugh Primary Care Provider [phone] [phone] Encounter Details Date Type Department Care Team (Latest Contact Info) Description 04/18/2009 Outpatient Historical HIS [facility] Sujatha Ledesma MD [address] [place] [address] Regional Enteritis of Unspecified Site (CMS/HCC) Social History Tobacco Use Types Packs/Day Years Used Date Smoking Tobacco: Never Assessed Comments Unknown Sex and Gender Information Value Date Recorded Sex Assigned at Not on file Legal Sex Female 5:28 AM BLANK DRILLER Gender Identity Not on file Sexual Orientation [...] CDT) GLUCOSE 151(H) 65 - 99 mg/dL [facility] AST 17 12 - 32 U/L [facility] BUN 11 6 - 20 mg/dL [facility] CALCIUM 9.2 8.6 - 10.2 mg/dL [facility] CHLORIDE 102 96 - 108 mmol/L [facility] ALBUMIN 4.1 3.4 - 4.8 g/dL [facility] CREATININE 0.67 0.51 - 0.95 mg/dL [facility] SODIUM 138 135 - 145 mmol/L [facility] ALT 14 0 - 31 U/L [facility] ALKALINE PHOSPHATASE 61 35 - 104 U/L [facility] BILIRUBIN TOTAL 0.4 0.2 - 1.0 mg/dL [facility] CO2 25 22 - 30 mmol/L [facility] TOTAL PROTEIN 7.0 6.3 - 8.6 g/dL [facility] POTASSIUM 3.6 3.5 - 4.9 mmol/L [facility] GFR, >60 >=60 mL/min/1. 7 sq meter [facility] GFR >60 >=60 mL/min/1. 7 sq meter [facility] Comment: Modification of Diet in Renal Disease (MDRD) study formula. Estimated GFR rate interpretative information for both Americans and non- Americans is available on the [facility] Intranet at: [email or web address] Select: Lab Policies and Procedures Select: Reference Ranges - GFR Blood specimen (specimen) 04/18/2009 1:13 PM CDT 04/18/2009 2:00 PM CDT Sujatha Prado MD CHEMISTRY ORDERABLES Edited INTERFACE SYSTEM Refer to clinic/hospital department [facility] CLIA# [id number] [address] [place] [address] * (ABNORMAL) CBC WITH DIFFERENTIAL (04/18/2009 1:13 PM CDT) MCV 101.5(H) 82.0 - 99.0 fL [facility] PLATELETS 319 140 - 350 K/uL [facility] HEMOGLOBIN 13.3 11.8 - 14.8 g/dL [facility] RDW 14.1 11.5 - 14.5 % [facility] WBC 7.2 4.0 - 9.8 K/uL [facility] MCH 33.9(H) 27.2 - 32.6 pg [facility] MPV 10.3 9.3 - 12.4 fL [facility] HEMATOCRIT 39.8 35.5 - 44.0 % [facility] RDW-STDEV 52.2(H) 37.1 - 48.7 fL [facility] RBC 3.92 3.90 - 4.90 M/uL [facility] MCHC 33.4 31.5 - 35.5 % [facility] EOSINOPHILS 1 0 - 7 % [facility] EOSINOPHIL ABSOLUTE 0.10 0.00 - 0.70 K/uL [facility] LYMPHOCYTES 21 16 - 45 % [facility] LYMPHOCYTE ABSOLUTE 1.50 0.70 - 4.50 K/uL [facility] BASOPHILS 0 0 - 2 % [facility] BASOPHILS ABSOLUTE 0.03 0.00 - 0.20 K/uL [facility] MONOCYTES 5 3 - 13 % [facility] MONOCYTE ABSOLUTE 0.37 0.10 - 1.30 K/uL [facility] NEUTROPHILS 72(H) 45 - 70 % [facility] NEUTROPHIL ABSOLUTE 5.15 1.90 - 7.00 K/uL [facility] Blood specimen (specimen) 04/18/2009 1:13 PM CDT 04/18/2009 1:53 PM CDT us Sujatha Prado MD HEMATOLOGY ORDERABLES Edited INTERFACE SYSTEM Refer to clinic/hospital department [facility] CLIA# [id number] [address] [place] [address] documented in this encounter Visit Diagnoses Diagnosis Regional enteritis of unspecified site (CMS/HCC) Regional enteritis of unspecified site documented in this encounter Care Teams Machine Technician Relationship Specialty Start Date End Date Tessy Francois DO [address] [place] [address] PCP - General 11/17/15 documented as of this encounter
--- OUTSIDE RECORDS SUMMARY | 2025-01-13 01:08 | XMS_ITS | Patient Health Record ---
Author Organization [facility] [employer] Address [address] [place] [address] Care Team Providers Care Pipeline Maintenance Supervisor Name Role Phone Chalo GOMEZ, Brent Unavailable [phone] ALLERGIES Allergen (clinical drug ingredient) Drug/Non Drug Allergy documented on EMR Reaction Allergy Type Onset Date Status Keflex Unknown Drug Allergy Active Hydrocodone Bitartrate Unknown Drug Allergy Active REASON FOR REFERRAL No Information MEDICATIONS Medication SIG (Take, Route, Frequency, Duration) Notes Start Date End Date Status Spironolactone 50 MG (Prior Auth: Rx Ref#:[id number]) Oral for 30 Active dilTIAZem HCl ER Coated Beads 240 MG (Prior Auth: Rx Ref#:[id number]) Oral for 30 Active Fluoxetine Active Delzicol [...] right ankle and foot (M19.071) Active confirmed [id number] PLAN OF TREATMENT No Information Insurance Providers Payer Name Payer Address Payer Phone Subscriber Number Group Number Insured Name Patient Relationship to Insured Coverage Start Date Coverage End Date [facility] [address] [place] [address] [id number] Spike Cole Spouse - patient is the spouse of the insured MEDICAL (GENERAL) HISTORY Medical History History ICD Code Crohn's Disease Arthritis hyperlipidemia kidney Surgical History Surgery Date(Month/Year) shoulder hysterectomy cyst removed, right middle finger section knee surgery foot, right-bone spur and cyst removal
--- OUTSIDE RECORDS SUMMARY | 2025-01-13 01:08 | XMS_ITS | Encounter Summary ---
Author Organization [facility] Address [address] [place] [address] Care Team Providers Care Janitor Custodian Name Role Phone Priscila Tessydasha Mchugh Primary Care Provider [phone] Encounter Details Date Type Department Care Team (Latest Contact Info) Description 07/08/2009 Outpatient Historical HIS [facility] Sujatha Ledesma MD [address] [place] [address] Regional Enteritis of Unspecified Site (CMS/HCC) Social History Tobacco Use Types Packs/Day Years Used Date Smoking Tobacco: Never Assessed Comments Unknown Sex and Gender Information Value Date Recorded Sex Assigned at Not on file Legal Sex Female 5:28 AM UPSETTER Gender Identity Not on file Sexual Orientation [...] (07/13/2009 12:26 PM CDT) SPECIMEN TYPE Blood [facility] TEST NAME THIOPURINE METABOLITES [facility] MISCELLANEOUS LAB TEST Name of Test: HItviews THIOPURINE METABOLITES Test Result: Metabolite: 6-TGN Result (Units: pmole/8x10^8 RBC): 426 Reference Range: 230 ? 400 Result Assessment: Higher Risk of Leucopenia. Higher Likelihood of Response. Metabolite: 6-MMPN Result (Units: pmole/8x10^8 RBC): 2516 Reference Range: <5700 Result Assessment: Lower Risk of Hepatotoxicity. Test Performed By: [employer], [place], [place] [facility] Specimen of unknown material (specimen) 07/13/2009 12:26 PM CDT 07/13/2009 12:36 PM CDT us Sujatha Prado MD CHEMISTRY ORDERABLES Edited Performing Organization Address [facility]/ZIP Co de Phone Number [facility] CLIA# [id number] [address] [place] [address] * VITAMIN B12 (07/13/2009 12:26 PM CDT) Pathologist [facility] VITAMIN B12 303 211 - 946 pg/mL [facility] Comment: It has been reported that between 5 to 10% of patients with values between 200 and 400 pg/mL may experience neuropsychiatric and hematologic abnormalities due to occult B12 deficiency. Less than 1% of patients with values above 400 pg/mL will have symptoms. Blood specimen (specimen) 07/13/2009 12:26 PM CDT 07/13/2009 12:36 PM CDT us Sujatha Prado MD CHEMISTRY ORDERABLES Edited [facility] CLIA# [id number] [address] [place] [address] * TSH (07/13/2009 12:26 PM CDT) [facility] TSH 0.98 0.27 - 4.20 uU/mL [facility] Blood specimen (specimen) 07/13/2009 12:26 PM CDT 07/13/2009 12:36 PM CDT Sujatha Prado MD CHEMISTRY ORDERABLES Final Resu lt [facility] CLIA# [id number] [address] [place] [address] * (ABNORMAL) CBC WITH DIFFERENTIAL (07/13/2009 12:26 PM CDT) [facility] RDW 16.4(H) 11.5 - 14.5 % [facility] WBC 8.8 4.0 - 9.8 K/uL [facility] MCH 36.7(H) 27.2 - 32.6 pg [facility] MPV 10.1 9.3 - 12.4 fL [facility] HEMATOCRIT 39.9 35.5 - 44.0 % [facility] RDW-STDEV 63.0(H) 37.1 - 48.7 fL [facility] RBC 3.73(L) 3.90 - 4.90 M/uL [facility] MCHC 34.3 31.5 - 35.5 % [facility] MCV 107.0(H) 82.0 - 99.0 fL [facility] PLATELETS 380(H) 140 - 350 K/uL [facility] HEMOGLOBIN 13.7 11.8 - 14.8 g/dL [facility] LYMPHOCYTES 7(L) 16 - 45 % [facility] LYMPHOCYTE ABSOLUTE 0.60(L) 0.70 - 4.50 K/uL [facility] BASOPHILS 0 0 - 2 % [facility] BASOPHILS ABSOLUTE 0.02 0.00 - 0.20 K/uL [facility] MONOCYTES 2(L) 3 - 13 % [facility] MONOCYTE ABSOLUTE 0.18 0.10 - 1.30 K/uL [facility] NEUTROPHILS 91(H) 45 - 70 % [facility] NEUTROPHIL ABSOLUTE 7.94(H) 1.90 - 7.00 K/uL [facility] EOSINOPHILS 0 0 - 7 % [facility] EOSINOPHIL ABSOLUTE 0.01 0.00 - 0.70 K/uL [facility] Blood specimen (specimen) 07/13/2009 12:26 PM CDT 07/13/2009 12:36 PM CDT Sujatha Prado MD HEMATOLOGY ORDERABLES Edited [facility] CLIA# [id number] [address] [place] [address] documented in this encounter Visit Diagnoses Diagnosis Regional enteritis of unspecified site (CMS/HCC) Regional enteritis of unspecified site documented in this encounter Care Teams Janitor Custodian Relationship Specialty Start Date End Date Tessy Francois DO [address] [place] [address] PCP - General 11/17/15 documented as of this encounter
--- OUTSIDE RECORDS SUMMARY | 2025-01-13 01:09 | XMS_ITS | Encounter Summary ---
Author Organization [facility] Health Address [address] [place] [address] Care Team Providers Care Die Casting Machine Maintainer Name Role Phone Rock Bullock MD Primary Care Provider [phone] Dillan Woody MD Primary Care Provider [phone] Encounter Details Date Type Department Care Team (Late st Contact Info) Description 12/28/2010 [facility] Outpatient Visit EXTERNAL NON-[facility] DEPT Rock Bullock MD [address] [place] [address] Social History Tobacco Use Types [...] on filedocumented in this encounter Care Teams Die Casting Machine Maintainer Relationship Specialty Start Date End Date Rock Bullock MD [address] [place] [address] PCP - General 12/26/10 02/25/12 Dillan Woody MD [address] [place] [address] PCP - General Internal Medicine 02/26/12 documented as of this encounter
--- OUTSIDE RECORDS SUMMARY | 2025-01-13 01:09 | XMS_ITS ---
Author Organization [facility] Address [facility] [address] [address] Care Team Providers Care Commissary Steward Name Role Phone Kirsten Eaton APN Primary Care Provider Unavailab Max Gallardo Unavailable [phone] REASON FOR VISIT Refill Request Social History Sex Assigned At : Social History Observation Description Sex Assigned At Female Encounters Encounter Location Date Provider Diagnosis [place] [address] [address] [facility] [address] [address] 12/24/2024 Max Valdes Plan Of Treatment No Information Progress Notes * ARIADNA LOPEZOB:1960 (64 yo F)Acc No.[id number]:12/24/2024 Patient: Brandyn JONESMansi ZEINA :1960 A ge:64 Y S ex:Female Phone: Address:[address] [place] [address] * true * Date: Generated for Eberi ashley/Justyna/eTransmitting on: 0 01/13/2025 01:09 AM MICROSYSTEMS ENGINEER
--- OUTSIDE RECORDS SUMMARY | 2025-01-13 01:09 | XMS_ITS | Encounter Summary ---
Author Organization [facility] Address [address] Attn: Epic Prelude ADT [place] [address] Care Team Providers Care Supervisor Remelt Name Role Phone Tessy Francois DO Primary Care Provider [phone] Encounter Details Date Type Department Care Team (Late st Contact Info) Description 08/27/2007 Outpatient Historical Amari Emmanuel MD NO ADDRESS ON FILE Social History Tobacco Use Types Packs/Day Years Used Date Smoking Tobacco: Never Assessed Comments Unknown Sex and Gender Information Value Date Recorded Sex Assigned at Not on file Legal Sex Female 5:28 AM LABORER/KEY MAN Gender Identity Not on file Sexual Orientation Not on file documented as of this encounter Plan of Treatment Not on file documented as of this encounter Visit Diagnoses Not on filedocumented in this encounter Care Teams Supervisor Remelt Relationship Specialty Start Date End Date Tessy Francois DO [address] [place] [address] PCP - General 11/17/15 documented as of this encounter
--- OUTSIDE RECORDS SUMMARY | 2025-01-13 01:09 | XMS_ITS | Encounter Summary ---
Author Organization [facility] Address [address] [place] [address] Care Team Providers Care Production Dispatcher Name Role Phone Tessy Francois DO Primary Care Provider [phone] Encounter Details Date Type Department Care Team (Late st Contact Info) Description 08/28/2007 Outpatient Historical [facility] Blood Flow [address] [place] [address] Riaz Alvarado MD NO ADDRESS ON FILE Social History Tobacco Use Types Packs/Day Years Used Date Smoking Tobacco: Never Assessed Comments Unknown Sex and Gender Information Value Date Recorded Sex Assigned at Not on file Legal Sex Female 5:28 AM REIMBURSEMENT LIAISON Gender Identity Not on file Sexual Orientation Not on file documented as of this encounter Plan of Treatment Not on file documented as of this encounter Visit Diagnoses Not on filedocumented in this encounter Care Teams Production Dispatcher Relationship Specialty Start Date End Date Tessy Francois DO [address] [place] [address] PCP - General 11/17/15 documented as of this encounter
--- OUTSIDE RECORDS SUMMARY | 2025-01-13 01:09 | XMS_ITS | Clinical Summary ---
Author Organization [facility] Address [address] [place] [address] Care Team Providers Care Mortgage Servicing Specialist Name Role Phone Tessy Francois DO Primary Care Provider [phone] Allergies Active Allergy Reactions Criticality Noted Date Comments Cephalexin Anaphylaxis High 02/26/2013 Ciprofloxacin Unknown 02/26/2013 Hydrocodone Itching Low 04/01/2014 Unclassified Drug Seizure High 05/16/2017 spirolactine Medications FLUoxetine (PROZAC) 20 mg Oral tablet Take 1 Tab by mouth daily. 30 Tab 11 3 Active azaTHIOprine (IMURAN) 50 mg Oral tablet 3 Active NASCOBAL 500 mcg Both Nostril [place] 3 Active DELZICOL 400 mg Oral CpDR [...] migh t be different from the original. Chair And Couch Maker - Dr Shashank Rodriguez Problem Noted Date [...] on file Legal Sex Female 5:28 AM CORPORATE TRAINER Gender Identity Not on file Sexual Orientation Not on file Occupation Industry Job Start Date Job End Date Not on file Not on file Not on file Not on file Last Filed Vital Signs Vital Sign Reading Time Taken Comments Blood Pressure 136/72 12/30/2017 8:37 AM CORPORATE TRAINER Pulse 71 05/16/2017 10:45 AM CDT Temperature - - Respiratory Rate 17 08/11/2013 11:39 AM CDT Oxygen Saturation - - Inhaled Oxygen Concentration - - Weight 73.5 kg (162 lb) 12/30/2017 8:37 AM CORPORATE TRAINER Height 171.5 cm (5' 7.5 ) 12/30/2017 8:37 AM CORPORATE TRAINER Body Mass Index 25 12/30/2017 8:37 AM CORPORATE TRAINER Plan of Treatment Health Maintenance Due Date [...] OR WO CAD Routine 01/01/2018 10:27 AM CORPORATE TRAINER Nipple discharge, bloody CERV/VAG CYTO SCREEN PAP RLFX HPV Routine 05/16/2017 11:14 AM CDT Encounter for gynecological examination without abnormal finding POC OCCULT BLOOD 1 CARD Routine 04/01/2014 1:30 PM CDT Routine gynecological examination from Last 3 Months or Most Recently Relevant to Health Maintenance Results * MAMMO DIAGNOSTIC BILATERAL W OR WO CAD (01/01/2018 10:27 AM CORPORATE TRAINER) Anatomical Region Laterality Modality Breast Bilateral Mammography 01/01/2018 10:2 7 AM CORPORATE TRAINER Impressions 01/01/2018 2:29 PM CORPORATE TRAINER IMPRESSION: Bilateral breast implants. Negative and stable bilateral diagnostic mammogram. Mildly dilated ducts and occasional cysts, otherwise negative bilateral subareolar breast sonogram. If the bloody nipple discharge persists, recommend further evaluation with breast MRI. Overall Assessment: BI-RADS Category: 2. Benign finding(s). Dictation Location: [facility] 01/01/2018 2:29 PM CORPORATE TRAINER BILATERAL DIAGNOSTIC DIGITAL IMPLANT MAMMOGRAMS WITH CAD [...] has been evaluated with computer assisted technology. BORDER GUARD: SEE COMMENT 2016 10:31 AM CDT [facility] Comment: TMK, CT(ASCP) CT screening location: [place] [address] [address] [place] [address] Genital SWAB OF ENDOCERVIX / Unknown Collection / Unknown 05/16/2017 11:14 AM CDT 05/16/2017 8:09 PM CDT Narrative [facility] - 05/23/2017 10:31 AM CDT Performing Organization Information: Site ID: SL Name: [facility] Address: [facility] [address] [place] [address] Director: Chad Lemos MD Rock Bullock MD PATHOLOGY/CYTOLOGY ORDERABLES Fi nal Result [facility] * POC OCCULT BLOOD 1 CARD (04/01/2014 1:30 PM CDT) OCCULT BLOOD #1 Negative Negative [facility] Stool specimen (specimen) 04/01/2014 1:30 PM CDT us Rock Bullock MD POINT OF CARE TESTING Final Resu lt [facility] from Last 3 Months or Most Recently Relevant to Health Maintenance [place] [place] [id number] Member Subscriber Plan / Payer (Ef fective 2021-Present) Name:Gina Cole Relation to Subscriber:Spouse Name:SHAWNEE COLE Date of :1963 (Home) (Work) Address: [address] [place] [address] Payer ID:[id number] (NAIC) Type:PPO Address: [facility] [address] [place] [id number] Care Teams Mortgage Servicing Specialist Relationship Specialty Start Date End Date Tessy Francois DO [address] [place] [address] PCP - General 11/17/15
--- OUTSIDE RECORDS SUMMARY | 2025-01-13 01:10 | XMS_ITS | Encounter Summary ---
Author Organization [facility] Address [address] [place] [address] Care Team Providers Care Saw Operator Name Role Phone FrancoisTessy verduzco Primary Care Provider [phone] Encounter Details Date Type Department Care Team (Latest Contact Info) Description 10/23/2008 Outpatient Historical [facility] Sujatha Ledesma MD [address] [place] [address] Functional Diarrhea Social History Tobacco Use Types Packs/Day Years Used Date Smoking Tobacco: Never Assessed Comments Unknown Sex and Gender Information Value Date Recorded Sex Assigned at Not on file Legal Sex Female 5:28 AM RECORDS MANAGEMENT ANALYST Gender Identity Not on file Sexual Orientation Not on file documented as of this encounter Plan of Treatment Not on file documented as of this encounter Procedures Procedure Name Priority Date/Time Associated Diagnosis Comments C-REACTIVE PROTEIN Routine 10/23/2008 8: 19 AM RECORDS MANAGEMENT ANALYST documented in this encounter Results * C-REACTIVE PROTEIN (10/23/2008 8:19 AM RECORDS MANAGEMENT ANALYST) CRP 0.2 0.0 - 0.8 mg/dL [facility] Blood specimen (specimen) 10/23/2008 8:19 AM RECORDS MANAGEMENT ANALYST 10/23/2008 9:00 AM RECORDS MANAGEMENT ANALYST us Sujatha Prado MD CHEMISTRY ORDERABLES Final Resu lt INTERFACE SYSTEM Refer to clinic/hospital department [facility] CLIA# [id number] [address] [place] [address] documented in this encounter Visit Diagnoses Diagnosis Functional diarrhea documented in this encounter Care Teams Saw Operator Relationship Specialty Start Date End Date Tessy Francois DO [address] [place] [id number] PCP - General 11/17/15 documented as of this encounter
--- OUTSIDE RECORDS SUMMARY | 2025-01-13 01:10 | XMS_ITS | Encounter Summary ---
Author Organization [facility] Address [address] [place] [address] Care Team Providers Care License Issuer Name Role Phone Priscila Tessy Britte Primary Care Provider [phone] Encounter Details Date Type Department Care Team (Late st Contact Info) Description 10/26/2008 Outpatient Historical [facility] Mago Sarabia MD Social History Tobacco Use Types Packs/Day Years Used Date Smoking Tobacco: Never Assessed Comments Unknown Sex and Gender Information Value Date Recorded Sex Assigned at Not on file Legal Sex Female 5:28 AM CEMETERY VAULT INSTALLER Gender Identity Not on file Sexual Orientation Not on file documented as of this encounter Plan of Treatment Not on file documented as of this encounter Procedures Procedure Name Priority Date/Time Associated Diagnosis Comments STOOL CULTURE (SILVANO,SHIG,CAMPY,ECO1 57) Routine 10/26/2008 7:52 AM CEMETERY VAULT INSTALLER C. DIFFICILE DETECTION Routine 10/26/2008 7:52 AM CEMETERY VAULT INSTALLER FECAL LEUKOCYTES STAIN Routine 10/26/2008 7:52 AM CEMETERY VAULT INSTALLER OVA AND PARASITE SCREEN Routine 10/26/2008 7:52 AM CEMETERY VAULT INSTALLER documented in this encounter Results * CLOSTRIDIUM DIFFICILE TOXIN (10/26/2008 7:52 AM CEMETERY VAULT INSTALLER) FINAL REPORT NO Clostridium difficile Toxin A or B detected by EIA. A negative result does not rule out C. difficile associated diarrhea or colitis. [facility] Stool specimen (specimen) 10/26/2008 7:52 AM CEMETERY VAULT INSTALLER 10/26/2008 8:13 AM CEMETERY VAULT INSTALLER us Sujatha Prado MD MICROBIOLOGY - GENERAL ORDERABL ES Final Result Performing Organization Address [facility] de Phone Number INTERFACE SYSTEM Refer to clinic/hospital department [facility] CLIA# [id number] [address] [place] [place] [address] * OVA AND PARASITE SCREEN (10/26/2008 7:52 AM CEMETERY VAULT INSTALLER) PRELIMINARY REPORT Pending [facility] FINAL REPORT Concentration : No ova or parasites seen. Trichrome: No ova or parasites seen. [facility] Stool specimen (specimen) 10/26/2008 7:52 AM CEMETERY VAULT INSTALLER 10/26/2008 8:15 AM CEMETERY VAULT INSTALLER Narrative INTERFACE SYSTEM - 11/02/2008 7:09 AM CEMETERY VAULT INSTALLER Performed by [employer] [address] Performed by [employer] [address] us Sujatha Prado MD MICROBIOLOGY - GENERAL ORDERABL ES Final Result Performing Organization Address [facility] Phone Number INTERFACE SYSTEM Refer to clinic/hospital department [facility] CLIA# [id number] [address] [place] [address] * FECAL LEUKOCYTES STAIN (10/26/2008 7:52 AM CEMETERY VAULT INSTALLER) FINAL REPORT Few WBC's seen [facility] Stool specimen (specimen) 10/26/2008 7:52 AM CEMETERY VAULT INSTALLER 10/26/2008 8:13 AM CEMETERY VAULT INSTALLER us Sujatha Prado MD MICROBIOLOGY - GENERAL ORDERABL ES Final Result Performing Organization Address City/[facility] de Phone Number INTERFACE SYSTEM Refer to clinic/hospital department [facility] CLIA# [id number] [address] [place] [address] * STOOL CULTURE (SILVANO,SHIG,CAMPY,NCL906) (10/26/2008 7:52 AM CEMETERY VAULT INSTALLER) PRELIMINARY REPORT No Salmonella isolated. No Shigella isolated. No Escherichia coli serogroup O157:H7 isolated. [facility] FINAL REPORT No Salmonella isolated. No Shigella isolated. No Escherichia coli serogroup O157:H7 isolated. No Camplylobacter isolated. [facility] Stool specimen (specimen) 10/26/2008 7:52 AM CEMETERY VAULT INSTALLER 10/26/2008 8:17 AM CEMETERY VAULT INSTALLER us Sujahta Prado MD MICROBIOLOGY - GENERAL ORDERABL ES Final Result INTERFACE SYSTEM Refer to clinic/hospital department [facility] CLIA# [id number] [address] [place] [address] documented in this encounter Visit Diagnoses Not on filedocumented in this encounter Care Teams License Issuer Relationship Specialty Start Date End Date Tessy Francois DO [address] [place] [address] PCP - General 11/17/15 documented as of this encounter
--- OUTSIDE RECORDS SUMMARY | 2025-01-13 01:10 | XMS_ITS | Encounter Summary ---
Author Organization [employer] Address [address] [place] [address] Care Team Providers Care Bottle Cleaner Name Role Phone Tessy Francois DO Primary Care Provider +[phone] Encounter Details Date Type Department Care Team (Late st Contact Info) Description 10/07/2008 Outpatient Historical [facility] Madelyn Rae MD [address] [facility] [address] [place] [address] Regional Enteritis of Unspecified Site (CMS/HCC) Social History Tobacco Use Types Packs/Day Years Used Date Smoking Tobacco: Never Assessed Comments Unknown Sex and Gender Information Value Date Recorded Sex Assigned at Not on file Legal Sex Female 5:28 AM 3RD MATE Gender Identity Not on file Sexual Orientation Not on file documented as of this encounter Plan of Treatment Not on file documented as of this encounter Procedures Procedure Name Priority Date/Time Associated Diagnosis Comments PATHOLOGY Routine 10/07/2008 3:22 PM 3RD MATE STOOL CULTURE (SILVANO,SHIG,CAMPY,ECO 157) Routine 10/07/2008 3:17 PM 3RD MATE C. DIFFICILE DETECTION Routine 10/07/2008 3:17 PM 3RD MATE OVA AND PARASITE SCREEN Routine 10/07/2008 3:17 PM 3RD MATE POC , URINE Routine 10/07/2008 1:40 PM 3RD MATE documented in this encounter Results * PATHOLOGY (10/07/2008 3:22 PM 3RD MATE) FINAL REPORT [facility] [address] [place], [place] [address] Patient: ZEINA COLE : 1960 Procedure Date: 10/07/2008 Accession Date: 10/07/2008 Case No: [id number] Ordering Dr: MADELYN RAE Case types AW, BW, FW, NW and SH are performed by [facility], [place], [place] SURGICAL PATHOLOGY & NON-GYNECOLOGIC CYTOPATHOLOGY REPORT [...] 04:36 pm Microscopic: The slides are labeled [id number], Zeina Cole. Sections of the left colon [...] 09:19 am INTERFACE SYSTEM 10/07/2008 3:22 PM 3RD MATE us Madelyn Rae MD PATHOLOGY/CYTOLOGY ORDERABLE S Final Result INTERFACE SYSTEM Refer to clinic/hospital department * OVA AND PARASITE SCREEN (10/07/2008 3:17 PM 3RD MATE) PRELIMINARY REPORT Pending [facility] FINAL REPORT Concentration : No ova or parasites seen. Trichrome: No ova or parasites seen. [facility] 10/07/2008 3:17 PM 3RD MATE 10/07/2008 4:43 PM 3RD MATE Narrative INTERFACE SYSTEM - 10/14/2008 10:48 AM 3RD MATE fax to dr rae [facility] by [facility], [address] [place] [id number] Performed by [employer] [address] Madelyn Rae MD MICROBIOLOGY - GENERAL ORDER DIVINE Final Result Performing Organization Address [facility] Phone Number INTERFACE SYSTEM Refer to clinic/hospital department [facility] CLIA# [id number] [address] [place] [address] * STOOL CULTURE (SILVANO,SHIG,CAMPY,[id number]) (10/07/2008 3:17 PM 3RD MATE) PRELIMINARY REPORT No Salmonella isolated. No Shigella isolated. No Escherichia coli serogroup O157:H[address] [facility] FINAL REPORT No Salmonella isolated. No Shigella isolated. No Escherichia coli serogroup O157:H7 isolated. No Camplylobacter isolated. [facility] 10/07/2008 3:17 PM 3RD MATE 10/07/2008 4:43 PM 3RD MATE Narrative INTERFACE SYSTEM - 10/10/2008 7:51 AM 3RD MATE fax to dr rae Madelyn Rae MD MICROBIOLOGY - GENERAL ORDER DIVINE Final Result Performing Organization Address [facility] Co de Phone Number INTERFACE SYSTEM Refer to clinic/hospital department [facility] CLIA# [id number] [address] [place] [address] * CLOSTRIDIUM DIFFICILE TOXIN (10/07/2008 3:17 PM 3RD MATE) FINAL REPORT NO Clostridium difficile Toxin A or B detected by EIA. A negative result does not rule out C. difficile associated diarrhea or colitis. [facility] Stool specimen (specimen) 10/07/2008 3:17 PM 3RD MATE 10/07/2008 4:43 PM 3RD MATE Narrative INTERFACE SYSTEM - 10/08/2008 3:11 PM 3RD MATE fax to dr rae Madelyn Rae MD MICROBIOLOGY - GENERAL ORDER DIVINE Final Result Performing Organization Address [facility] de Phone Number INTERFACE SYSTEM Refer to clinic/hospital department [facility] CLIA# [id number] [address] [place] [address] * POC , URINE (10/07/2008 1:40 PM 3RD MATE) , URINE POC Negative Negative [facility] Urine specimen (specimen) 10/07/2008 1:40 PM 3RD MATE 10/07/2008 1:40 PM 3RD MATE Madelyn Rae MD POINT OF CARE TESTING Final Result Performing Organization Address [facility] de Phone Number INTERFACE SYSTEM Refer to clinic/hospital department [facility] CLIA# [id number] [address] [place] [address] documented in this encounter Visit Diagnoses Diagnosis Regional enteritis of unspecified site (CMS/HCC) Regional enteritis of unspecified site documented in this encounter Care Teams Bottle Cleaner Relationship Specialty Start Date End Date Tessy Francois DO [address] [place] [address] PCP - General 11/17/15 documented as of this encounter
--- OUTSIDE RECORDS SUMMARY | 2025-01-13 01:10 | XMS_ITS | Patient Health Record ---
Author Organization [employer] Address [address] [place] [address] Care Team Providers Care Product Promoter Sales Person Name Role Phone Tsesy Tejada DO Primary Care Provider James labmykel [...] Problem Status W/U Status Risk Notes Problem 995987932 Nausea (R11.0) Active confirmed Problem 50609563 Diarrhea (R19.7) Active confirmed Problem 697641030 Weight loss (R63.4) Active confirmed Problem 619023687 Gastroesophageal reflux disease, esophagitis presence not specified (K21.9) Active confirmed Problem 839300528 Bloating (R14.0) Active confirmed Problem 05128339 Abdominal crampi ng (R10.9) Active confirmed Problem 58143675 Crohns disease o f both small and large intestine without complication (K50.80) Active confirmed Problem 580719826 Mild acid reflux (K21.9) Active confirmed Problem 06111218 Joint pain (M25.50) Active confirmed Problem 36513470 Crohn disease (K50.90) Active confirmed Diagnosed around [...] Insured Coverage Start Date Coverage End Date [facility] Choice/ choice Plus E2 [address] [place] [address] [id number] Spike Cole Spouse - patient is the spouse of the insured Medical (General) History Medical History History ICD Code Crohn's disease Kidney problems Colon polyps Surgical History Surgery Date(Month/Year) Colonoscopy 01/2016 section Breast augmentation Hysterectomy Foot Hand Knee Shoulder Hospitalization History Reason Date(Month/Year) Clostridium difficile Kidney infection
--- OUTSIDE RECORDS SUMMARY | 2025-01-13 01:10 | XMS_ITS | Encounter Summary ---
Author Organization [facility] Address [address] [place] [address] Care Team Providers Care Elevator Runner Name Role Phone Priscila Tessydasha Mchugh Primary Care Provider [phone] Encounter Details Date Type Department Care Team (Late Contact Info) Description 10/23/2008 Outpatient Historical HIS [facility] Sarabia, MD Mago Social History Tobacco Use Types Packs/Day Years Used Date Smoking Tobacco: Never Assessed Comments Unknown Sex and Gender Information Value Date Recorded Sex Assigned at Not on file Legal Sex Female 5:28 AM GROUNDMAN Gender Identity Not on file Sexual Orientation Not on file documented as of this encounter Plan of Treatment Not on file documented as of this encounter Procedures Procedure Name Priority Date/Time Associated Diagnosis Comments GLUCOSE TOLERANCE, 2 HR Routine 10/23/2008 10:30 AM GROUNDMAN GLUCOSE FARHAT NON-GEST FOR DIABETES 2 HR Routine 10/23/2008 10:30 AM GROUNDMAN GLUCOSE TOLERANCE, FASTING Routine 10/23/2008 8:18 AM GROUNDMAN BASIC METABOLIC PANEL Routine 10/23/2008 8:18 AM GROUNDMAN documented in this encounter Results * GLUCOSE FARHAT NON-GEST FOR DIABETES 2 HR (10/23/2008 10:30 AM GROUNDMAN) COMMENT See Additional Orderables [facility] Blood specimen (specimen) 10/23/2008 10:30 AM GROUNDMAN 10/23/2008 10:32 AM GROUNDMAN Mago Sarabia MD CHEMISTRY ORDERABLES Final R esult Performing Organization Address [facility] de Phone Number INTERFACE SYSTEM Refer to clinic/hospital department [facility] CLIA# [id number] [address] [place] [address] * GLUCOSE TOLERANCE, 2 HR (10/23/2008 10:30 AM GROUNDMAN) GLUCOSE, 2HR 135 <=139 mg/dL [facility] Blood specimen (specimen) 10/23/2008 10:30 AM GROUNDMAN 10/23/2008 10:32 AM GROUNDMAN Mago Sarabia MD CHEMISTRY ORDERABLES Final R [facility] Performing Organization Address [facility] Phone Number INTERFACE SYSTEM Refer to clinic/hospital department [facility] CLIA# [id number] [address] [place] [address] [address] * BASIC METABOLIC PANEL (10/23/2008 8:18 AM GROUNDMAN) CHLORIDE 103 96 - 108 mmol/L [facility] GLUCOSE 86 65 - 99 mg/dL [facility] SODIUM 141 135 - 145 mmol/L [facility] CALCIUM 8.6 8.6 - 10.2 mg/dL [facility] CO2 28 22 - 30 mmol/L [facility] CREATININE 0.80 0.51 - 0.95 mg/dL [facility] POTASSIUM 3.9 3.5 - 4.9 mmol/L [facility] BUN 11 6 - 20 mg/dL [facility] GFR, >60 >=60 mL/min/1.7 sq meter [facility] GFR >60 >=60 mL/min/1.7 sq meter [facility] Comment: ansiModification of Diet in Renal Disease (MDRD) study formula. Estimated GFR rate interpretative information for both Americans and non- Americans is available on the [facility] Intranet at: [email or web address] Select: Lab Policies and Procedures Select: Reference Ranges - GFR Blood specimen (specimen) 10/23/2008 8:18 AM GROUNDMAN 10/23/2008 9:00 AM GROUNDMAN Mago Sarabia MD CHEMISTRY ORDERABLES Edited Performing Organization Address [facility] de Phone Number INTERFACE SYSTEM Refer to clinic/hospital department [facility] CLIA# [id number] [address] [place] [address] * GLUCOSE TOLERANCE, FASTING (10/23/2008 8:18 AM GROUNDMAN) GTT INTERP, NON-GESTATION AL Based on 75 g dose: Type 1 or 2 Diabetes Mellitus Criteria: Fasting (Baseline): > = 126 mg/dL or 2 hour specimen: > = 200 mg/dL Impaired Glucose Metabolism Criteria: Fasting (Baseline): 100 - 125 mg/dL 2 hour specimen: 140 - 199 mg/dL [facility] GLUCOSE FASTING 86 <=99 mg/dL [facility] Blood specimen (specimen) 10/23/2008 8:18 AM GROUNDMAN 10/23/2008 9:00 AM GROUNDMAN us Mago Sarabia MD CHEMISTRY ORDERABLES Final R esult Performing Organization Address [facility] de Phone Number INTERFACE SYSTEM Refer to clinic/hospital department [facility] CLIA# [id number] [address] [place] [address] documented in this encounter Visit Diagnoses Not on filedocumented in this encounter Care Teams Elevator Runner Relationship Specialty Start Date End Date Tessy Francois DO [address] [place] [address] PCP - General 11/17/15 documented as of this encounter
--- OUTSIDE RECORDS SUMMARY | 2025-01-13 01:10 | XMS_ITS | Clinical Summary ---
Author Organization [facility] Address [address] [place] [address] Care Team Providers Care Distribution Center Manager Name Role Phone Dillan Woody MD Primary Care Provider [phone] Source Comments [facility],non-owned Affiliates and Associated Physician Practices is amultiple site organization consisting of ambulatory clinics and hospital sitesin [place], [place], [place] and [place]. This disclosure is being madepursuant to the Care Everywhere program and may not contain all information available regarding this patient. Last updated 18.[facility] Allergies Active Allergy Reactions Criticality Noted Date [...] daily. Active Cyanocobalamin (NASCOBAL) 500 MCG/0.1ML SOLN [place] 1 Squirt into the nose every 7 [...] 36.3 C (97.3 F) 01/07/2011 8:00 AM MEDICAL ADMINISTRATIVE ASSISTANT Respiratory Rate 18 01/07/2011 8:00 AM MEDICAL ADMINISTRATIVE ASSISTANT Oxygen Saturation 100% 01/05/2011 8:00 PM MEDICAL ADMINISTRATIVE ASSISTANT Inhaled Oxygen Concentration - - Weight [...] ICD9 [facility] ACCOUNT BILL Comment:V72.31 ; Routine warehouse picker ecological examination Performed by [facility] ACCOUNT BILL [...] Thin Prep Vial Resulting Agency Comment [facility] [address] [id number] Rock Bullock MD LAB - PATHOLOGY/CYTO LOGY [...] 10:33 PM 01/04/2011 8:00 PM Care Teams Distribution Center Manager Relationship Specialty Start Date End Date Dillan Woody MD PCP - General Internal Medicine 02/26/12
--- OUTSIDE RECORDS SUMMARY | 2025-01-13 01:10 | XMS_ITS | Encounter Summary ---
Author Organization [employer] Address [address] [place] [address] Care Team Providers Care Sewing Machinist Name Role Phone Tessy Francois DO Primary Care Provider [phone] Encounter Details Date Type Department Care Team (Late st Contact Info) Description 08/28/2007 Outpatient Historical [facility] [place] [address] [place] [address] Other Chest Pain (Primary Dx) Social History Tobacco Use Types Packs/Day Years Used Date Smoking Tobacco: Never Assessed Comments Unknown Sex and Gender Information Value Date Recorded Sex Assigned at Not on file Legal Sex Female 5:28 AM MINERAL INDUSTRY TEACHER Gender Identity Not on file Sexual Orientation [...] INTERFACE SYSTEM 08/29/2007 6:00 AM CDT us [employer]um[employer] Ying CHEMISTRY ORDERABLES Edited Performing Organization Address [facility] [[email or web address]] de Phone Number INTERFACE SYSTEM Refer to [...] classifications for lipids are available on the [facility] Intranet at: [email or web address] Select: Lab Policies and Procedures,Current Select: Lipid Panel Interpretation 08/29/2007 6:00 AM CDT us [employer] (acquired by [employer])i Ying CHEMISTRY ORDERABLES Edited Performing Organization Address [facility] [[email or web address]] de Phone Number INTERFACE SYSTEM Refer to clinic/hospital department * PHOSPHORUS (08/29/2007 6:00 AM CDT) PHOSPHORUS 4.0 2.5 - 4.5 mg/dL INTERFACE SYSTEM 08/29/2007 6:00 AM CDT us [facility] Sciencei Ying CHEMISTRY ORDERABLES Edited Performing Organization Address City/[facility] Co de Phone Number INTERFACE SYSTEM Refer to clinic/hospital department * MAGNESIUM LEVEL (08/29/2007 6:00 AM CDT) MAGNESIUM 2.2 1.5 - 2.5 mg/dL INTERFACE SYSTEM 08/29/2007 6:00 AM CDT us [facility] Sciencei Ying CHEMISTRY ORDERABLES Edited Performing Organization Address City/State/[facility] [[email or web address]] de Phone Number INTERFACE SYSTEM Refer to clinic/hospital department * TROPONIN (W/REFLEX CKMB/CK) (08/28/2007 11:35 PM CDT) TROPONIN T 0.01 <=0.03 ng/mL INTERFACE SYSTEM TROPONIN T INTERP Negative INTERFACE SYSTEM 08/28/2007 11:3 5 PM CDT Viangel Ying CHEMISTRY ORDERABLES Edited Performing Organization Address [facility] [[email or web address]] de Phone Number INTERFACE SYSTEM Refer to [...] MD URINE ORDERABLES Edited Performing Organization Address [facility] Phone Number INTERFACE SYSTEM Refer to clinic/hospital department * TROPONIN (W/REFLEX CKMB/CK) (08/28/2007 5:13 PM CDT) TROPONIN T <0.01 <=0.03 ng/mL INTERFACE SYSTEM TROPONIN T INTERP Negative INTERFACE SYSTEM 08/28/2007 5:13 PM CDT Haley Ying CHEMISTRY ORDERABLES Edited Performing Organization Address [facility] [[email or web address]] de Phone Number INTERFACE SYSTEM Refer to clinic/hospital department * TROPONIN (W/REFLEX CKMB/CK) (08/28/2007 2:52 PM CDT) TROPONIN T <0.01 <=0.03 ng/mL INTERFACE SYSTEM TROPONIN T INTERP Negative INTERFACE SYSTEM 08/28/2007 2:52 PM CDT Ajsánchez Ying CHEMISTRY ORDERABLES Edited Performing Organization Address City/[facility] Co de Phone Number INTERFACE [...] MD HEMATOLOGY ORDERABLES Edited Performing Organization Address [facility] [[email or web address]] de Phone Number INTERFACE SYSTEM Refer to clinic/hospital department * (ABNORMAL) CBC WITH DIFFERENTIAL (08/27/2007 5:15 PM CDT) Pathologist [facility] WBC 9.1 4.0 - 9.8 K/uL INTERFACE [...] [facility] Intranet at: [email or web address] Select: Lab Policies and Procedures [...] Primary documented in this encounter Care Teams Sewing Machinist Relationship Specialty Start Date End Date Tessy Francois DO [address] [place] [address] PCP - General 11/17/15 documented as of this encounter
--- OUTSIDE RECORDS SUMMARY | 2025-01-13 01:10 | XMS_ITS ---
Author Organization [facility] Address [address] [place] [address] Care Team Providers Care Modeling Manager Name Role Phone Kirsten Eaton APN Primary Care Provider Unavailab Max Gallardo Unavailable [phone] Allergies Allergen (clinical drug ingredient) Drug/Non Drug [...] Problem Status W/U Status Risk Notes Problem [id number] MDD (major depressive disorder), recurrent episode, moderate (F33.1) Active confirmed Vital Signs Blood pressure systolic 135 mm Hg 09/17/20 24 Blood pressure diastolic 91 mm Hg 024 Heart Rate 82 /min 09/17/2024 Weight 173.6 lbs 09/17/2024 Weight-kg 78.74 kg 09/17/2024 Encounters Encounter Location Date Provider Diagnosis Interactive Project, [place] [address] [address] 09/17/2024 Max Clubb MAYANK (generalized anxiety disorder) [...] Notes * ARIADNA COLEOB:1960 (64 yo F)Acc No.[id number]:09/17/2024 Patient: Brandyn ZEINA OLIVARES Provider: ALISON Lund :1960 A ge:64 Y S ex:Female Date:09/17/2024 Phone: Address:[address] [place] [address], [facility] Pcp:Kirsten A Yakel AUTOMOTIVE HEAVY MECHANIC Subjective: * Chief Complaints: * R eports [...] education was provided at first assessment at [facility]. Do you drink alcohol?: Yes, reports large [...] M 1357 Pt w/red suic idea 120 [id number] VISIT COMPLEXITY INHERENT TO ONGOING CARE RELATED TO A PATIENT'S SINGLE, SERIOUS CONDITION OR A COMPLEX CONDITION * Preventive Medicine: Counseling: B P Management: F IRST HYPERTENSIVE BP READING FOLLOW-UP PLAN: _ ___, R EFERRAL TO ALTERNATIVE / PRIMARY CARE PROVIDER: Juan albaerral to general practitioner ____. * Follow Up: 1 12/19/2023 * Billing Information: * Visit Code: [id number] OFFICE OUTPATIENT VISIT 25 MINUTES DETAILED HISTORY [...] Date: Generated for Fly ramirez/Justyna/Demarco on: 0 01/13/2025 01:09 AM CHAIR TRIMMER History and Physical Notes * HPI (History [...]
--- OUTSIDE RECORDS SUMMARY | 2025-01-13 01:10 | XMS_ITS | Encounter Summary ---
Author Organization [facility] Address [address] [place] [address] Care Team Providers Care Comptometer Operator Name Role Phone FrancoisTessy verduzco Primary Care Provider [phone] Encounter Details Date Type Department Care Team (Latest Contact Info) Description 12/06/2008 Outpatient Historical HIS [facility] Sujatha Ledesma MD [address] [place] [address] Regional Enteritis of Large Intestine (CMS/HCC) Social History Tobacco Use Types Packs/Day Years Used Date Smoking Tobacco: Never Assessed Comments Unknown Sex and Gender Information Value Date Recorded Sex Assigned at Not on file Legal Sex Female 5:28 AM TIRE AND TUBE REPAIRER Gender Identity Not on file Sexual Orientation Not on file documented as of this encounter Plan of Treatment Not on file documented as of this encounter Procedures Procedure Name Priority Date/Time Associated Diagnosis Comments MISCELLANEOUS LAB TEST Routine 9 10:17 AM TIRE AND TUBE REPAIRER documented in this encounter Results * MISCELLANEOUS LAB TEST (12/06/2008 10:17 AM TIRE AND TUBE REPAIRER) TEST NAME TPMT [facility] SPECIM[facility] TYPE Blood [facility] MISCELLANEOUS LAB TEST Name of Test: TPMT Test Result: TPMT*1/TPMT*1 Alleles present are associated with Normal Enzyme Activity Reference Range: TPMT*1/TPMT*1 Test Performed By: [employer] [place] [facility] Specimen of unknown material (specimen) 12/06/2008 10:17 AM TIRE AND TUBE REPAIRER 12/06/2008 10:34 AM TIRE AND TUBE REPAIRER Narrative INTERFACE SYSTEM - 12/09/2008 8:39 AM TIRE AND TUBE REPAIRER Name of test:tpmt genotype us Sujatha Prado MD CHEMISTRY ORDERABLES Edited INTERFACE SYSTEM Refer to clinic/hospital department [facility] CLIA# [id number] [address] [place] [address] documented in this encounter Visit Diagnoses Diagnosis Regional enteritis of large intestine (CMS/HCC) Regional enteritis of large intestine documented in this encounter Care Teams Comptometer Operator Relationship Specialty Start Date End Date Tessy Francois DO [address] [place] [address] PCP - General 11/17/15 documented as of this encounter
--- OUTSIDE RECORDS SUMMARY | 2025-01-13 01:10 | XMS_ITS | Referral Summary ---
Author Organization [facility] [employer] Address [address] [place] [address] Care Team Providers Care Bobtailer Name Role Phone Dillan Woody MD Primary Care Provider Source Comments [facility],non-owned Affiliates and Associated Physician Practices is amultiple site organization consisting of ambulatory clinics and hospital sitesin [place], [place], [place] and [place]. This disclosure is being madepursuant to the Care Everywhere program and may not contain all information available regarding this patient. Last updated 18.[facility] Allergies Active Allergy Reactions Criticality Noted Date [...] daily. Active Cyanocobalamin (NASCOBAL) 500 MCG/0.1ML SOLN [place] 1 Squirt into the nose every 7 [...] 36.3 C (97.3 F) 01/07/2011 8:00 AM INTERNATIONAL SALES REPRESENTATIVE Respiratory Rate 18 01/07/2011 8:00 AM INTERNATIONAL SALES REPRESENTATIVE Oxygen Saturation 100% 01/05/2011 8:00 PM INTERNATIONAL SALES REPRESENTATIVE Inhaled Oxygen Concentration - - Weight 73.9 [...] ICD9 [facility] ACCOUNT BILL Comment:V72.31 ; Routine digital advisor ecological examination Performed by [facility] ACCOUNT BILL [...] CYTYC Thin Prep Vial Resulting Agency Comment [facility] [phone] Rock Bullock MD LAB - PATHOLOGY/CYTO LOGY [...] 10:33 PM 01/04/2011 8:00 PM Care Teams Bobtailer Relationship Specialty Start Date End Date Dillan Woody MD PCP - General Internal Medicine 02/26/12
--- OUTSIDE RECORDS SUMMARY | 2025-01-13 01:10 | XMS_ITS | Encounter Summary ---
Author Organization [employer] Address [address] [place] [address] Care Team Providers Care Senior Mechanical Project Manager Name Role Phone Priscila Tessy Britte Primary Care Provider [phone] Encounter Details Date Type Department Care Team (Late st Contact Info) Description 09/24/2008 Outpatient Historical [facility] Nadia Sarabia MD Social History Tobacco Use Types Packs/Day Years Used Date Smoking Tobacco: Never Assessed Comments Unknown Sex and Gender Information Value Date Recorded Sex Assigned at Not on file Legal Sex Female 5:28 AM PATTERN MAKER Gender Identity Not on file Sexual Orientation [...] [facility] [address] [place], [place] [address] Admit Date: 09/24/2008 ZEINA COLE Sex: F Admit Prov: NADIA SARABIA Date: 1960 Primary Care Prov: NADIA SARABIA CMRN: [id number] Room: [facility] SSN: [id number] IMAGING SERVICES Ordering Prov: N/A Accession Number: [id number] Interpretation SMALL BOWEL SERIES, 09/28/2008 Clinical History: Crohn's disease, right lower quadrant abdominal pain, possible jejunal intussusception seen on recent abdominal CT. Findings: A preliminary abdominal biscuitware brusher radiograph is not remarkable. Following oral administration [...] [facility] [place] [address] [place], [place] [address] Admit Date: 09/24/2008 COLE ZEINA Carolina Sex: F Admit Prov: NADIA SARABIA Date: 1960 Primary Care Prov: NADIA SARABIA CMRN: [id number] Room: [facility] SSN: [id number] IMAGING SERVICES Ordering Prov: N/A Interpretation SMALL BOWEL SERIES, 09/28/2008 Clinical History: Crohn's disease, right lower quadrant abdominalpain, possible jejunal intussusception seen on recent abdominal CT. Findings: A preliminary abdominal biscuitware brusher radiograph is notremarkable. Following oral administration of [...] ALKALINE PHOSPHATASE 66 35 - 104 U/L [facility] ALT 14 0 - 31 U/L [facility] CHLORIDE 98 96 - 108 mmol/L [facility] AST 15 12 - 32 U/L [facility] BUN 7 6 - 20 mg/dL [facility] TOTAL PROTEIN 6.5 6.3 - 8.6 g/dL [facility] BILIRUBIN TOTAL 0.3 0.2 - 1.0 mg/dL [facility] CREATININE 0.76 0.51 - 0.95 mg/dL [facility] CO2 27 22 - 30 mmol/L [facility] ALBUMIN 3.7 3.4 - 4.8 g/dL [facility] SODIUM 132(L) 135 - 145 mmol/L [facility] CALCIUM 8.8 8.6 - 10.2 mg/dL [facility] GLUCOSE 123(H) 65 - 99 mg/dL [facility] POTASSIUM 3.2(L) 3.5 - 4.9 mmol/L [facility] GFR, >60 >=60 mL/min/1. 7 sq meter [facility] GFR >60 >=60 mL/min/1. 7 sq meter [facility] Comment: Modification of Diet in Renal Disease (MDRD) study formula. Estimated GFR rate interpretative information for both Americans and non- Americans is available on the [facility] Intranet at: [email or web address] Select: Lab Policies and Procedures Select: Reference Ranges - GFR Blood specimen (specimen) 09/24/2008 2:27 PM CDT 09/24/2008 2:33 PM CDT Nadia Sarabia MD CHEMISTRY ORDERABLES Edited INTERFACE SYSTEM Refer to clinic/hospital department [facility] CLIA# [id number] [address] [facility] [place] [address] * (ABNORMAL) CBC WITH DIFFERENTIAL (09/24/2008 2:27 PM CDT) WBC 8.0 4.0 - 9.8 K/uL [facility] MCH 32.1 27.2 - 32.6 pg [facility] MPV 10.2 9.3 - 12.4 fL [facility] HEMATOCRIT 38.8 35.5 - 44.0 % [facility] RDW-STDEV 43.3 37.1 - 48.7 fL [facility] RBC 4.02 3.90 - 4.90 M/uL [facility] MCHC 33.2 31.5 - 35.5 % [facility] MCV 96.5 82.0 - 99.0 fL [facility] PLATELETS 312 140 - 350 K/uL [facility] HEMOGLOBIN 12.9 11.8 - 14.8 g/dL [facility] RDW 12.3 11.5 - 14.5 % [facility] MONOCYTES 9 3 - 13 % [facility] MONOCYTE ABSOLUTE 0.75 0.10 - 1.30 K/uL [facility] NEUTROPHILS 71(H) 45 - 70 % [facility] NEUTROPHIL ABSOLUTE 5.70 1.90 - 7.00 K/uL [facility] EOSINOPHILS 3 0 - 7 % [facility] EOSINOPHIL ABSOLUTE 0.20 0.00 - 0.70 K/uL [facility] LYMPHOCYTES 16 16 - 45 % [facility] LYMPHOCYTE ABSOLUTE 1.30 0.70 - 4.50 K/uL [facility] BASOPHILS 1 0 - 2 % [facility] BASOPHILS ABSOLUTE 0.05 0.00 - 0.20 K/uL [facility] Blood specimen (specimen) 09/24/2008 2:27 PM CDT 09/24/2008 2:33 PM CDT us Nadia Sarabia MD HEMATOLOGY ORDERABLES Edited INTERFACE SYSTEM Refer to clinic/hospital department [facility] CLIA# [id number] [address] [facility] [address] [place] [address] * CT ABDOMEN PELVIS W CONTRAST (09/24/2008 2:12 PM CDT) Anatomical Region Laterality Modality Abdomen Other 09/24/2008 2:12 PM CDT Narrative 09/24/2008 4:46 PM CDT [facility] [address] [place], [place] [address] Admit Date: 09/24/2008 ZEINA COLE Sex: F Admit Prov: NADIA SARABIA Date: 1960 Primary Care Prov: NADIA SARABIA CMRN: [id number] Room: [facility] SSN: [id number] IMAGING SERVICES Ordering Prov: N/A Accession Number: [id number] Interpretation CT SCAN OF THE ABDOMEN AND [...] [facility] [place] [address] [place], [place] [address] Admit Date: 09/24/2008 ZEINA COLE Sex: F Admit Prov: NADIA SARABIA Date: 1960 Primary Care Prov: NADIA SARABIA CMRN: [id number] Room: [facility] SSN: [id number] IMAGING SERVICES Ordering Prov: N/A Interpretation CT [...] CREATININE POC 0.8 0.6 - 1.3 mg/dL [facility] GFR, >60 >=60 mL/min/1.7 sq meter [facility] GFR >60 >=60 mL/min/1.7 sq meter [facility] Capillary blood specimen (specimen) 09/24/2008 2:05 PM CDT 09/24/2008 2:05 PM CDT us Nadia Sarabia MD POINT OF CARE TESTING Edited INTERFACE SYSTEM Refer to clinic/hospital department [facility] CLIA# [id number] [address] [place] [address] documented in this encounter Visit Diagnoses Not on filedocumented in this encounter Care Teams Senior Mechanical Project Manager Relationship Specialty Start Date End Date Tessy Francois DO [address] [place] [address] PCP - General 11/17/15 documented as of this encounter
--- OUTSIDE RECORDS SUMMARY | 2025-01-13 01:10 | XMS_ITS | Encounter Summary ---
Author Organization [employer] Address [address] [place] [address] Care Team Providers Care Pedodontist Name Role Phone Priscila Tessy Britte Primary Care Provider [phone] Encounter Details Date Type Department Care Team [...] on file Legal Sex Female 5:28 AM POLICE CLERK Gender Identity Not on file Sexual Orientation Not on file documented as of this encounter Plan of Treatment Not on file documented as of this encounter Procedures Procedure Name Priority Date/Time Associated Diagnosis Comments CT HEAD WO CONTRAST Routine 12/29/2008 4 :15 PM POLICE CLERK CBC WITH DIFFERENTIAL Stat 12/29/2008 2:48 PM POLICE CLERK C-REACTIVE PROTEIN Stat 12/29/2008 2: 48 PM POLICE CLERK COMPREHENSIVE METABOLIC PANEL Stat 12/29/2008 2:48 PM POLICE CLERK documented in this encounter Results * CT HEAD WO CONTRAST (12/29/2008 4:15 PM POLICE CLERK) Anatomical Region Laterality Modality Head Other 12/29/2008 4:15 PM POLICE CLERK Narrative 12/29/2008 4:28 PM [facility] [address] [place], [place] [address] Admit Date: 12/29/2008 ZEINA COLE Sex: F Admit Prov: ER, AUTHORIZED P Date: 1960 Primary Care Prov: NADIA PEÑALOZA CMRN: [id number] [id number] Ordering Prov: N/A Accession Number: [id number] Interpretation CT head without contrast 12/29/2008.. History: [...] 12/29/2008 16:27 Procedure Note Meg Cheung 12/29/2008 [facility] [address] [place], [place] [address] Admit Date: 12/29/2008 ZEINA COLE Sex: F Admit Prov: ER, AUTHORIZED P Date: 1960 Primary Care Prov: NADIA PEÑALOZA CMRN: [id number] [id number] Ordering Prov: N/A Interpretation CT [...] Result * C-REACTIVE PROTEIN (12/29/2008 2:48 PM POLICE CLERK) CRP 0.3 0.0 - 0.8 mg/dL [facility] Blood specimen (specimen) 12/29/2008 2:48 PM POLICE CLERK 12/29/2008 3:01 PM POLICE CLERK Manjit Mendiola MD CHEMISTRY ORDERABLES Final R esult INTERFACE SYSTEM Refer to clinic/hospital department [facility] CLIA# [id number] [address] [place] [address] * (ABNORMAL) COMPREHENSIVE METABOLIC PANEL (12/29/2008 2:48 PM POLICE CLERK) CREATININE 0.67 0.51 - 0.95 mg/dL [facility] SODIUM 136 135 - 145 mmol/L [facility] ALT 26 0 - 31 U/L [facility] ALKALINE PHOSPHATASE 46 35 - 104 U/L [facility] BILIRUBIN TOTAL 0.4 0.2 - 1.0 mg/dL [facility] CO2 26 22 - 30 mmol/L [facility] TOTAL PROTEIN 6.6 6.3 - 8.6 g/dL [facility] POTASSIUM 4.0 3.5 - 4.9 mmol/L [facility] GLUCOSE 119(H) 65 - 99 mg/dL [facility] AST 22 12 - 32 U/L [facility] BUN 8 6 - 20 mg/dL [facility] CALCIUM 9.3 8.6 - 10.2 mg/dL [facility] CHLORIDE 101 96 - 108 mmol/L [facility] ALBUMIN 4.0 3.4 - 4.8 g/dL [facility] [...] and non- Americans is available on the [facility] Intranet at: [email or web address] Select: Lab Policies and Procedures Select: Reference Ranges - GFR Blood specimen (specimen) 12/29/2008 2:48 PM POLICE CLERK 12/29/2008 3:01 PM POLICE CLERK us Manjit Mendiola MD CHEMISTRY ORDERABLES Edited INTERFACE SYSTEM Refer to clinic/hospital department [facility] CLIA# [id number] [address] [place], [place] [address] * (ABNORMAL) CBC WITH DIFFERENTIAL (12/29/2008 2:48 PM POLICE CLERK) RDW-STDEV 43.8 37.1 - 48.7 fL [facility] RBC 4.38 3.90 - 4.90 M/uL [facility] MCHC 33.8 31.5 - 35.5 % [facility] MCV 95.2 82.0 - 99.0 fL [facility] PLATELETS 304 140 - 350 K/uL [facility] HEMOGLOBIN 14.1 11.8 - 14.8 g/dL [facility] RDW 12.6 11.5 - 14.5 % [facility] WBC 11.0(H) 4.0 - 9.8 K/uL [facility] MCH 32.2 27.2 - 32.6 pg [facility] MPV 10.2 9.3 - 12.4 fL [facility] HEMATOCRIT 41.7 35.5 - 44.0 % [facility] MONOCYTES 4 3 - 13 % [facility] MONOCYTE ABSOLUTE 0.47 0.10 - 1.30 K/uL [facility] NEUTROPHILS 78(H) 45 - 70 % [facility] NEUTROPHIL ABSOLUTE 8.58(H) 1.90 - 7.00 K/uL [facility] EOSINOPHILS 1 0 - 7 % [facility] EOSINOPHIL ABSOLUTE 0.05 0.00 - 0.70 K/uL [facility] LYMPHOCYTES 17 16 - 45 % [facility] LYMPHOCYTE ABSOLUTE 1.89 0.70 - 4.50 K/uL [facility] BASOPHILS 0 0 - 2 % [facility] BASOPHILS ABSOLUTE 0.03 0.00 - 0.20 K/uL [facility] Blood specimen (specimen) 12/29/2008 2:48 PM POLICE CLERK 12/29/2008 3:01 PM POLICE CLERK us Manjit Mendiola MD HEMATOLOGY ORDERABLES Edited INTERFACE SYSTEM Refer to clinic/hospital department [facility] CLIA# [id number] [address] [place] [address] documented in this encounter Visit Diagnoses Not on filedocumented in this encounter Care Teams Pedodontist Relationship Specialty Start Date End Date Tessy Francois DO [address] [place] [address] PCP - General 11/17/15 documented as of this encounter
--- OUTSIDE RECORDS SUMMARY | 2025-01-13 01:10 | XMS_ITS | Encounter Summary ---
Author Organization [employer] Address [address] [place] [address] Care Team Providers Care Patent Prosecution Paralegal Name Role Phone Tessy Francois DO Primary Care Provider [phone] Encounter Details Date Type Department Care Team (Late st Contact Info) Description 08/29/2007 Outpatient Historical [facility] Support Serv. (Adt Cardiology-[facility]) [address] [place] [address] Tristan Hyman MD NO ADDRESS ON FILE Social History Tobacco Use Types Packs/Day Years Used Date Smoking Tobacco: Never Assessed Comments Unknown Sex and Gender Information Value Date Recorded Sex Assigned at Not on file Legal Sex Female 5:28 AM MOUNTER SMOKING PIPE Gender Identity Not on file Sexual Orientation Not on file documented as of this encounter Plan of Treatment Not on file documented as of this encounter Visit Diagnoses Not on filedocumented in this encounter Care Teams Patent Prosecution Paralegal Relationship Specialty Start Date End Date Tessy Francois DO [address] [place] [address] PCP - General 11/17/15 documented as of this encounter
--- OUTSIDE RECORDS SUMMARY | 2025-01-13 01:10 | XMS_ITS | Patient Health Summary ---
Author Organization [facility] [employer] Address [address] [facility] [place] [address] Care Team Providers Care Technology Professional Name Role Phone Dillan Woody MD Primary Care Provider [phone] Note from [facility],non-owned Affiliates and Associated Physician Practices is amultiple site organization consisting of ambulatory clinics and hospital sitesin [place], [place] and [place]. This disclosure is being madepursuant to the Care Everywhere program and may not contain all information available regarding this patient. Last updated 18.[facility] Allergies * Ciprofloxacin(Rash at infusion site [...] daily. * Cyanocobalamin (NASCOBAL) 500 MCG/0.1ML SOLN [place] 1 Squirt into the nose every 7 [...] 36.3 C (97.3 F) 01/07/2011 8:00 AM AVIATION ELECTRONICS TECHNICIAN Respiratory Rate 18 01/07/2011 8:00 AM AVIATION ELECTRONICS TECHNICIAN Oxygen Saturation 100% 01/05/2011 8:00 PM AVIATION ELECTRONICS TECHNICIAN Inhaled Oxygen Concentration - - Weight 73.9 [...] ICD9 [facility] ACCOUNT BILL Comment:V72.31 ; Routine logging supervisor ecological examination Performed by [facility] ACCOUNT [...] Thin Prep Vial Resulting Agency Comment [facility] [address] [id number] Rock Bullock MD LAB - PATHOLOGY/CYTO LOGY ORDERABLES [facility] ACCOUNT BILL * MAMMO DIAG DIRECT DIGITAL IMAGE UNIL LEFT (08/13/2011) Anatomical Region Laterality Modality Left Other Rock Bullock MD MAMMO ORDERABLES * MAMMOGRAPHY ORDER (07/17/2011) Anatomical Region Laterality Modality Other Rock Bullock MD MAMMO ORDERABLES * (ABNORMAL) CBC W AUTO DIFFERENTIAL (01/06/2011 4:05 AM AVIATION ELECTRONICS TECHNICIAN) WBC 10.0 4.5 - 11.0 1000/mm3 [facility] RBC 2.74(L) 4.2 - 5.4 10X6 [facility] Hemoglobin 10.1(L) 12.0 - 16.0 gm/dl [facility] Hematocrit 29.9(L) 36.0 - 48.0 % [facility] MCV 109.1(H) 80.0 - 99.0 fl [facility] MCH 36.9(H) 25.0 - 31.0 pg [facility] MCHC 33.8 32.0 - 36.0 gm/dl [facility] RDW 14.1 11.5 - 14.5 % [facility] Platelet Count 205 130.0 - 400.0 1000/mm3 [facility] Granulocytes % 78.9(H) 40.0 - 70.0 % [facility] Lymphocytes % 9.8(L) 22.0 - 40.0 % [facility] Monocytes % 10.8(H) 2.0 - 10.0 % [facility] Eosinophils % 0.2 0.0 - 6.0 % [facility] Basophils % 0.3 0.0 - 3.0 % [facility] Granulocytes Absolute 7.92(H) 1.8 - 7.7 [facility] Lymphocytes Absolute 0.98(L) 1.0 - 5.4 [facility] Monocytes Absolute 1.08 0.1 - 1.1 [facility] Eosinophils Absolute 0.02 0.0 - 0.7 [facility] Basophils Absolute 0.03 0.0 - 0.2 [facility] Comment Manual Diff Not Indicated [facility] BLOOD SPECIMEN / Unknown 01/06/2011 4:05 AM AVIATION ELECTRONICS TECHNICIAN 01/06/2011 4:33 AM AVIATION ELECTRONICS TECHNICIAN Rock Bullock MD LAB - HEMATOLOGY ORD ERABLES [facility] [address] [place] [address] * XR ABDOMEN 1 VW (01/05/2011 9:58 AM AVIATION ELECTRONICS TECHNICIAN) Anatomical Region Laterality Modality Abdomen Radiographic Kavya ging 01/05/2011 10:1 4 AM AVIATION ELECTRONICS TECHNICIAN Impressions 01/05/2011 10:14 AM AVIATION ELECTRONICS TECHNICIAN Normal KUB Narrative 01/05/2011 10:14 AM AVIATION ELECTRONICS TECHNICIAN Abdomen KUB Indication: Evaluate for retained surgical [...] GROSS + MICRO EXAM (01/05/2011 9:06 AM AVIATION ELECTRONICS TECHNICIAN) [facility] Surgeon Dr. Bullock [facility] Grossed By ANANTH VELA [facility] Gross Report [facility] Comment: SURGEON: Dr. Bullock COPY [...] up to about 0.7 cm in diameter. Hatch Boss sections of the specimen are submitted as follows: A-B. Anterior and posterior cervix. C-D. Anterior and posterior endomyometrium and serosa. E-H. Possible myomas with largest myoma in G and H. I-J. Left and right ovaries and tubes. LW/angie Microscopic Examination [facility] Comment: MICROSCOPIC: The section of [...] The fallopian tubes are normal. BYRON/yoel Diagnosis [facility] Comment: DIAGNOSIS: 1. Uterus, total abdominal hysterectomy with bilateral salpingo- oophorectomy: Cervix: -- No pathologic diagnosis Endometrium: -- Weakly proliferative pattern Myometrium: -- Leiomyomata -- Adenomyosis Ovary, left: -- Follicular cyst Ovary, right: -- Hemorrhagic corpus luteum Fallopian tubes, bilateral: -- No pathologic diagnosis BYRON/yoel Released by Prema BENITEZ [facility] CPT Code 07598 [facility] HYSTERECTOMY AND BILATERAL SALPINGO-OOPHORECTOM Y SPECIMEN / Unknown 01/05/2011 9:06 AM AVIATION ELECTRONICS TECHNICIAN 01/05/2011 9:06 AM AVIATION ELECTRONICS TECHNICIAN Rock Bullock MD LAB - PATHOLOGY/CYTO LOGY ORDERABLES Performing Organization Address [facility] Co de Phone Number [facility] [address] [place] [address] * HCG URINE QUALITATIVE - POINT OF CARE (01/05/2011 6:15 AM AVIATION ELECTRONICS TECHNICIAN) HCG Qual Urine neg Negative [facility] POCT TESTING QC Verified yes Yes [facility] POC T TESTING Urine specimen (specimen) URINE / Unknown 01/05/2011 6:15 AM AVIATION ELECTRONICS TECHNICIAN Paul Stevenson MD LAB - POINT OF CARE ORDERABLES Performing Organization Address [facility] Co de Phone Number [facility] POCT TESTING [address] [place] [address] * HGB HCT PANEL (01/05/2011 6:10 AM AVIATION ELECTRONICS TECHNICIAN) Hemoglobin 13.2 12.0 - 16.0 gm/dl [facility] Hematocrit 38.0 36.0 - 48.0 % [facility] BLOOD SPECIMEN / Unknown 01/05/2011 6:10 AM AVIATION ELECTRONICS TECHNICIAN 01/05/2011 6:18 AM AVIATION ELECTRONICS TECHNICIAN Rock Bullock MD LAB - HEMATOLOGY ORD ERABLES Performing Organization Address [facility] de Phone Number [facility] [address] [place] [address] * US PELVIS WITH TRANSVAG NON OB (12/26/2010 8:19 AM AVIATION ELECTRONICS TECHNICIAN) Anatomical Region Laterality Modality Pelvis Ultrasound 12/26/2010 10:1 6 AM AVIATION ELECTRONICS TECHNICIAN Impressions 12/26/2010 10:31 AM AVIATION ELECTRONICS TECHNICIAN The uterus is grossly enlarged, lobulated in contour, and heterogeneous in echotexture, consistent with the presence of multiple myomata. The ovaries are sonographically unremarkable. Narrative 12/26/2010 10:31 AM AVIATION ELECTRONICS TECHNICIAN ULTRASOUND PELVIS - TRANSABDOMINAL/TRANSVAGINAL WITH DOPPLER Indication: [...] unremarkable. Rock Bullock MD ORDERABLES Care Teams Technology Professional Relationship Specialty Start Date End Date Dillan Woody MD PCP - General Internal Medicine 02/26/12
--- OUTSIDE RECORDS SUMMARY | 2025-01-13 01:10 | XMS_ITS | Encounter Summary ---
Author Organization [employer] Address [address] [place] [address] Care Team Providers Care Building And Construction Manager Name Role Phone Tessy Francois DO Primary Care Provider [phone] Encounter Details Date Type Department Care Team (Late st Contact Info) Description 08/28/2007 Outpatient Historical [facility] ([facility]iology[facility]) [address] 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
--- NOTE | 2025-01-13 01:14 | ED_ITS ---
HPI - Headache General Chief Complaint: Headache Stated Complaint: headache, high bp, light sensitivity Time Seen by Provider: 01/13/25 00:47 History of Present Illness HPI Narrative: Patient is a 64-year-old female who presents to the ER with a headache that started earlier in the day progressively got worse. She reports she was here approximately 5 days ago due to abnormal EKG, high blood pressure, and headache. Patient reports she had a cardiac workup which all came back normal. She reports earlier today she had chest pain that radiated to her back, then a significant headache started. Patient reports all cardiac symptoms results shortly after start of her headache. She reports she has migraine relief medication at home but ?did not take it soon enough. Patient reports her blood pressure has been elevated recently in combination with her headaches. She denies neck stiffness, thunderclap headache, recent fevers, chest pain, shortness of breath. Patient endorses a history of Crohn's disease but reports she has been in remission for approximately 5 years. Related Data Home Medications ?Medication ?Instructions ?Recorded ?Confirmed ?Last Taken ?Type propranolol 10 mg tablet 10 mg PO TID PRN anxiety 09/03/24 01/08/25 Unknown History Allergy injection QMWF 01/08/25 01/06/25 History fluoxetine 40 mg capsule 40 mg PO QHS 01/08/25 01/08/25 01/07/25 History Allergies Allergy/AdvReac Type Severity Reaction Status Date / Time egg Allergy Severe Nausea and Verified 01/08/25 16:25 Vomiting lecithin, soy Allergy Unknown Diarrhea Verified 01/08/25 16:25 cottage cheese Allergy Mild Diarrhea Uncoded 01/08/25 16:25 Review of Systems 2 Review of Systems: All systems reviewed & are unremarkable except as noted in HPI and below PMFSH Past Medical History Medical History Hx of adenomatous colonic polyps GERD (gastroesophageal reflux disease) Nausea and vomiting Diarrhea Need for hepatitis B screening test High risk medication use Crohn disease Hypothyroidism (acquired) Eustachian tube dysfunction Surgical History Surgical History History of sinus surgery May 2024 H/O breast augmentation S/P JACK (total abdominal hysterectomy) Family History Family History Mother Diabetes mellitus Depression Social History Social History Social History: Caffeine-tea occasionally Smoking packs per day: 1 Smoking cigarettes per day: 20.0 Years smoked: 30 Smoking pack-years: 30.00 Smoking status: Former smoker Second hand tobacco smoke exposure: No Alcohol intake: current Drinks per week: 14 Substance use: current Substance use type: marijuana Last use: 05/02/24 Do You Feel Safe in your Home?: Yes Lack of Transportation: No Lack of Food: Never True Current Housing: I Have Housing Concerned About Future Housing: No Difficulty Paying Gas/Electric Bills: No Difficulty Paying for Meds: No Currently Unemployed: YES Education: Associate Degree Difficulty w/ Childcare or Family Care: No Living arrangements: other Additional living arrangements comments: with sp Occupation/Education: retired 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 HEAD: Normocephalic, atraumatic. NECK: Supple. No adenopathy, no masses. RESPIRATORY: Airway patent, respirations nonlabored. Clear to auscultation bilaterally, no rales, rhonchi, wheezing. CARDIOVASCULAR: Regular rate and rhythm without murmurs, rubs, or gallops. Peripheral pulses 2+ and equal bilaterally. ABDOMINAL: Soft, nontender, nondistended, no hepatosplenomegaly. Normoactive BS. MUSCULOSKELETAL: Moves all extremities. Strength/ROM intact without gross deformities. SKIN: Warm, dry, normal color. No rashes. NEURO: A&O X3. Speech clear. Cranial nerves intact. No ataxic movements. Course Vital Signs Vital signs: Vital Signs Temperature 36.6 C 01/12/25 22:14 Pulse Rate 77 01/12/25 22:14 Respiratory Rate 15 01/12/25 22:14 Blood Pressure 188/92 H 01/12/25 22:14 Pulse Oximetry 95 01/12/25 22:14 Oxygen Delivery Room Air 01/12/25 22:14 Temperature 36.6 C 01/12/25 22:14 Pulse Rate 69 01/13/25 02:51 Respiratory Rate 18 01/13/25 02:51 Blood Pressure 149/76 H 01/13/25 02:51 Pulse Oximetry 97 01/13/25 02:51 Oxygen Delivery Room Air 01/12/25 22:14 MDM - Headache MDM Narrative Medical decision making narrative: Patient is a 64-year-old female who presents to the ER with a headache that started earlier in the day progressively got worse. She reports she was here approximately 5 days ago due to abnormal EKG, high blood pressure, and headache. Patient reports she had a cardiac workup which all came back normal. She reports earlier today she had chest pain that radiated to her back, then a significant headache started. Patient reports all cardiac symptoms results shortly after start of her headache. She reports she has migraine relief medication at home but ?did not take it soon enough. Patient reports her blood pressure has been elevated recently in combination with her headaches. She denies neck stiffness, thunderclap headache, recent fevers, chest pain, shortness of breath. Patient endorses a history of Crohn's disease but reports she has been in remission for approximately 5 years. Labs Ordered: CBC, CMP and troponin Imaging Ordered: None necessary (patient had a head CT performed less than 1 week ago, she performs this is NOT the worst headache of her life, and she denies any thunderclap headache). Medications Ordered: 1 L normal saline IV bolus, Reglan IV, Benadryl IV, Toradol IV, Decadron IV, patient declines narcotics Diagnosis: Intractable migraine headache Consults: neurology referral (outpatient) Patient Education/Shared MDM: Results of examination shared with patient. She endorses significant improvement following medication administration. Patient strongly advised to maintain hydration status upon discharge and follow-up with her PCP as soon as possible. She was also advised to follow-up with neurology. Pt will be discharged home with no new prescriptions. Strict return precautions provided. Patient verbalized understanding is in agreement with plan. Vital signs stable at time of discharge. All questions answered. Differential Diagnosis Differential diagnosis: Likely migraine, tension headache, headache and sinusitis Lab Data Attestation: I reviewed the patient's lab results. 01/12/25 22:28 01/12/25 22:28 Labs: Lab Results 01/12/25 Range/Units 22:28 WBC 7.9 (4.5-10.0) K/mm3 RBC 4.46 (4.2-5.4) M/mm3 Hgb 14.5 (12.0-15.0) g/dL Hct 43.0 (37.0-47.0) % MCV 96.4 (80-100) fl MCH 32.5 (26-34) pg MCHC 33.7 (32-36) g/dl RDW 12.3 (11.5-14.5) % Plt Count 334 (150-375) k/mm3 MPV 9.7 (7.4-10.4) fl Immature Gran % (Auto) 0.3 (0-0.5) % Neut % (Auto) 63.8 (45.5-73.1) % Lymph % (Auto) 25.3 (18.3-44.2) % Early % (Auto) 8.2 (2.6-8.5) % Eos % (Auto) 1.9 (0-4.4) % Baso % (Auto) 0.5 (0.2-1.2) % Lymph # (Auto) 1.99 (0.9-3.2) K/mm3 Early # (Auto) 0.7 H (0.1-0.6) K/mm3 Eos # (Auto) 0.2 (0-0.3) K/mm3 Baso # (Auto) 0.0 (0.0-0.1) K/mm3 Abs Immat Gran (auto) 0.02 (0.00-0.031) K/mm3 Absolute Neuts (auto) 5.0 (1.3-6.7) K/mm3 Absolute Nucleated RBC 0.000 (0.0-0.012) K/mm3 Nucleated RBC % 0.0 (0.0-0.2) % Sodium 140 (137-145) mmol/L Potassium 3.8 (3.4-5.0) mmol/L Chloride 104 (98-107) mmol/L Carbon Dioxide 25 (22-30) mmol/L Anion Gap 11 (4-12) mmol/L BUN 8 (7-17) mg/dL Creatinine 0.56 L (0.7-1.0) mg/dL Estim Creat Clear Calc 89 ml/min Estimated GFR > 60 (59 - ) Glucose 98 (65-110) mg/dL Calcium 9.7 (8.4-10.2) mg/dL Total Bilirubin 0.6 (0.2-1.3) mg/dL AST 26 (14-36) U/L ALT 19 (6-35) U/L Alkaline Phosphatase 103 (38-126) U/L Troponin I < 0.012 (0.000-0.034) ng/mL Total Protein 8.0 (6.3-8.2) g/dL Albumin 4.2 (3.5-5.1) g/dL Discharge Plan Discharge Clinical Impression: Migraine headache Qualifiers: Migraine type: unspecified Status migrainosus presence: without status migrainosus Intractability: not intractable Qualified Code(s): G43.909 - Migraine, unspecified, not intractable, without status migrainosus Patient Disposition: Home, Self-Care Condition: Stable Instructions: Antibiotic Form, Migraine Headache (ED) Additional Instructions: Please return to the ER with an worsening symptoms. Follow-up with primary care provider as soon as possible. You make take Tylenol in addition to Ubrelvy to treat your migraines. Take all regularly scheduled medications as prescribed. Patient Language: [place] Prescriptions: No Action propranolol 10 mg tablet 10 mg PO TID PRN (Reason: anxiety) Allergy injection QMWF fluoxetine 40 mg capsule 40 mg PO QHS aspirin [Children's Aspirin] 81 mg Tablet,Chewable 81 mg PO DAILY@0800 Qty: 30 0RF spironolactone 25 mg tablet See Rx Instructions .ROUTE .COMPLEX Qty: 180 3RF Dose Instruction: TAKE 1 TABLET TWICE A DAY Rx Instructions: TAKE 1 TABLET TWICE A DAY esomeprazole magnesium [Nexium] 40 mg capsule,delayed release(DR/EC) 40 mg PO DAILY 90 Days Qty: 90 3RF levothyroxine 50 mcg tablet 50 mcg PO DAILY Qty: 90 1RF Follow-up/Referrals: Kirsten Eaton NP [Primary Care Provider] - Santana Og MD [Physician] - (neurology) Time of Disposition: 03:15
[2025-01-13] MEDS: SODIUM CHLORIDE 0.9% IV 1,000 ML 999 ML IV CONT (01:50)
[2025-01-13] MEDS: METOCLOPRAMIDE HCL INJ 10 MG/2 ML VIAL IV PUSH (01:51)
[2025-01-13] MEDS: KETOROLAC 15 MG/ML VIAL (*BKC) IV PUSH (01:51)
[2025-01-13] MEDS: dexAMETHasone SOD PHOS INJ 10 MG/ML 1 ML VIAL IV PUSH (01:51)
[2025-01-13] MEDS: diphenhydrAMINE HCl INJ 50 MG/ML VIAL IV PUSH (01:51)
[2025-01-13 02:51] VITALS: BP 149/76; PULSE 69; RESP 18; O2SAT 97
== END 2025-01-13 03:29 | disposition home or self-care (01) ==
PROVIDERS: Student in an Organized Health Care Education/Training Program; Emergency Provider Registered Nurse; PCP Nurse Practitioner
DX: G43.909 Migraine, unspecified, not intractable, without status migrainosus (principal); K21.9 Gastro-esophageal reflux disease without esophagitis; E03.9 Hypothyroidism, unspecified; R94.31 Abnormal electrocardiogram [ECG] [EKG]
CPT/HCPCS: 36415; 80053; 84484; 85025; 93005; 96361; 96374; 96375; 99284; J1100; J1200; J1885; J2765; J7030

== ENCOUNTER 2025-01-26 11:34 | Emergency (ER) | payer BC, SELFPAY ==
--- NOTE | 2025-01-26 11:39 | ECG_ITS ---
Test Date: 2025-01-26 11:45:34 Measurements Intervals [place] Rate: 73 P: 32 WV: 149 QRS: -20 QRSD: 86 T: 4 QT: 388 QTc: 428 Interpretive Statements SINUS RHYTHM DELAYED PRECORDIAL R/S TRANSITION ST DEVIATION AND MODERATE T-WAVE ABNORMALITY, CONSIDER ANTERIOR ISCHEMIA BASELINE ARTIFACT- I, II, III, AVR, AVL, AVF, V4-V5 ABNORMAL ECG Compared to ECG 01/12/2025 22:22:50 No significant changes Electronically Signed On 01-26-2025 12:00:27 MANAGER HOTEL by Dell Dunham D.O.
[2025-01-26 11:43] VITALS: BP 155/82; PULSE 76; RESP 16; TEMP 36.5; O2SAT 100
[2025-01-26 11:58] LABS: Basophils Absolute Auto 0.1 K/mm3 (0.0-0.1); Basophils Percent Auto 0.7 % (0.2-1.2); Eosinophils Absolute Auto 0.2 K/mm3 (0-0.3); Eosinophils Percent Auto 2.2 % (0-4.4); Hematocrit 45.8 % (37.0-47.0); Hemoglobin 15.3 g/dL (12.0-15.0); Immature Granulocyte Absolute 0.09 K/mm3 (0.00-0.031); Immature Granulocyte Percent A 1.2 % (0-0.5); Lymphocytes Absolute Auto 2.66 K/mm3 (0.9-3.2); Lymphocytes Percent Auto 35.9 % (18.3-44.2); Mean Corpuscular HGB Conc 33.4 g/dl (32-36); Mean Corpuscular Hemoglobin 32.6 pg (26-34); Mean Corpuscular Volume 97.7 fl (80-100); Mean Platelet Volume 9.3 fl (7.4-10.4); Monocytes Absolute Auto 0.6 K/mm3 (0.1-0.6); Monocytes Percent Auto 7.8 % (2.6-8.5); Neutrophils Absolute Auto 3.9 K/mm3 (1.3-6.7); Neutrophils Percent Auto 52.2 % (45.5-73.1); Platelet Count Result 390 k/mm3 (150-375); Red Blood Count 4.69 M/mm3 (4.2-5.4); Red Cell Distribution Width 12.1 % (11.5-14.5); White Blood Count 7.4 K/mm3 (4.5-10.0)
--- NOTE | 2025-01-26 12:08 | PC.NURSE ---
Pt states her sx have resolved and she is going to f/u with her utility locate technician instead. Pt leaves ED in NAD @ 6360.
[2025-01-26 12:22] LABS: Alanine Aminotransferase 19 U/L (6-35); Albumin Level 4.2 g/dL (3.5-5.1); Alkaline Phosphatase 113 U/L (38-126); Anion Gap 10 mmol/L (4-12); Aspartate Amino Transferase 24 U/L (14-36); Bilirubin,Total 0.4 mg/dL (0.2-1.3); Blood Urea Nitrogen 6 mg/dL (7-17); Calcium 9.1 mg/dL (8.4-10.2); Carbon Dioxide 27 mmol/L (22-30); Chloride 102 mmol/L (98-107); Estimated CRCL calculation 80 ml/min; Estimated Glomerular Filt Rate > 60; Glucose 95 mg/dL (65-110); Lipase 78 U/L (23-300); Potassium 3.2 mmol/L (3.4-5.0); Sodium 139 mmol/L (137-145)
[2025-01-26 12:23] LABS: INR 0.9; Prothrombin Time 12.9 Seconds (11.1-14.7)
[2025-01-26 12:33] LABS: Troponin I < 0.012 ng/mL (0.000-0.034)
--- OUTSIDE RECORDS SUMMARY | 2025-01-26 13:40 | XMS_ITS | Encounter Summary ---
Author Organization [facility] Address 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 Gender Identity Not on file Sexual Orientation Not on file documented as of this encounter Plan of Treatment Not on file documented as of this encounter Procedures Procedure Name Priority Date/Time Associated Diagnosis Comments CBC WITH DIFFERENTIAL Routine 01/26/2009 4:41 PM DIE CUTTER OPERATOR documented in this encounter Results * (ABNORMAL) CBC WITH DIFFERENTIAL (01/26/2009 4:41 PM DIE CUTTER OPERATOR) RBC 4.32 3.90 - 4.90 M/uL [facility] MCHC 33.2 31.5 - 35.5 % [facility] MCV 97.0 82.0 - 99.0 fL [facility] PLATELETS 317 140 - 350 K/uL [facility] HEMOGLOBIN 13.9 11.8 - 14.8 g/dL [facility] RDW 13.2 11.5 - 14.5 % [facility] WBC 12.1(H) 4.0 - 9.8 K/uL [facility] MCH 32.2 27.2 - 32.6 pg [facility] MPV 10.5 9.3 - 12.4 fL [facility] HEMATOCRIT 41.9 35.5 - 44.0 % [facility] RDW-STDEV 46.5 37.1 - 48.7 fL [facility] MONOCYTE ABSOLUTE 0.82 0.10 - 1.30 K/uL [facility] LYMPHOCYTES 16 16 - 45 % [facility] NEUTROPHIL ABSOLUTE 9.16(H) 1.90 - 7.00 K/uL [facility] NEUTROPHILS 76(H) 45 - 70 % [facility] EOSINOPHILS 1 0 - 7 % [facility] EOSINOPHIL ABSOLUTE 0.06 0.00 - 0.70 K/uL [facility] LYMPHOCYTE ABSOLUTE 1.96 0.70 - 4.50 K/uL [facility] BASOPHILS 0 0 - 2 % [facility] BASOPHILS ABSOLUTE 0.05 0.00 - 0.20 K/uL [facility] MONOCYTES 7 3 - 13 % [facility] Blood specimen (specimen) 01/26/2009 4:41 PM DIE CUTTER OPERATOR 01/26/2009 5:07 PM DIE CUTTER OPERATOR us Sujatha Prado MD HEMATOLOGY ORDERABLES Edited INTERFACE SYSTEM Refer to clinic/hospital department [facility] CLIA# [id number] [address] [place] [address] documented in this encounter Visit Diagnoses Diagnosis Regional enteritis of unspecified site (CMS/HCC) Regional enteritis of unspecified site documented in this encounter Care Teams Track Laying Supervisor Relationship Specialty Start Date End Date Tesys Francois DO [address] [place] [id number] PCP - General 11/17/15 documented as of this encounter
--- OUTSIDE RECORDS SUMMARY | 2025-01-26 13:40 | XMS_ITS | Patient Health Record ---
Author Organization [facility] [employer] Address [address] [place] [address] Care Team Providers Care Retail Chain Store Area Supervisor Name Role Phone Chalo GOMEZ, Brent Unavailable [phone] ALLERGIES Allergen (clinical drug ingredient) Drug/Non Drug Allergy documented on EMR Reaction Allergy Type Onset Date Status Keflex Unknown Drug Allergy Active Hydrocodone Bitartrate Unknown Drug Allergy Active REASON FOR REFERRAL No Information MEDICATIONS Medication SIG (Take, Route, Frequency, Duration) Notes Start Date End Date Status Spironolactone 50 MG (Prior Auth: Rx Ref#:[id number]) Oral for 30 Active dilTIAZem HCl ER Coated Beads 240 MG (Prior Auth: Rx Ref#:[id number]) Oral for 30 Active Fluoxetine Active Delzicol [...] right ankle and foot (M19.071) Active confirmed [id number] PLAN OF TREATMENT No Information Insurance Providers Payer Name Payer Address Payer Phone Subscriber Number Group Number Insured Name Patient Relationship to Insured Coverage Start Date Coverage End Date [facility] [address] [place] [address] [id number] Spike Cole Spouse - patient is the spouse of the insured MEDICAL (GENERAL) HISTORY Medical History History ICD Code Crohn's Disease Arthritis hyperlipidemia kidney Surgical History Surgery Date(Month/Year) shoulder hysterectomy cyst removed, right middle finger section knee surgery foot, right-bone spur and cyst removal
--- OUTSIDE RECORDS SUMMARY | 2025-01-26 13:40 | XMS_ITS | Encounter Summary ---
Author Organization [employer] [facility] Address 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 400 Result Assessment: Higher Risk of Leucopenia. Higher Likelihood of Response. Metabolite: 6-MMPN Result (Units: pmole/8x10^8 RBC): 2516 Reference Range: <5700 Result Assessment: Lower Risk of Hepatotoxicity. Test Performed By: [employer], [place], [place] [facility] Specimen of unknown material (specimen) 07/13/2009 12:26 PM CDT 07/13/2009 12:36 PM CDT us Sujatha Prado MD CHEMISTRY ORDERABLES Edited Performing Organization Address [facility]/ZIP Co de Phone Number [facility] CLIA# [id number] [address] [place] [address] * VITAMIN B12 (07/13/2009 12:26 PM CDT) Pathologist [facility] VITAMIN B12 303 211 - 946 pg/mL [facility] Comment: It has been reported that [...] ORDERABLES Edited [facility] CLIA# [id number] [address] [place] [address] * TSH (07/13/2009 12:26 PM CDT) [facility] TSH 0.98 0.27 - 4.20 uU/mL [facility] Blood specimen (specimen) 07/13/2009 12:26 PM CDT 07/13/2009 12:36 PM CDT Sujatha Prado MD CHEMISTRY ORDERABLES Final Resu lt [facility] CLIA# [id number] [address] [place] [address] * (ABNORMAL) CBC WITH DIFFERENTIAL (07/13/2009 12:26 PM CDT) [facility] RDW 16.4(H) 11.5 - 14.5 % [facility] WBC 8.8 4.0 - 9.8 K/uL [facility] MCH 36.7(H) 27.2 - 32.6 pg [facility] MPV 10.1 9.3 - 12.4 fL [facility] HEMATOCRIT 39.9 35.5 - 44.0 % [facility] RDW-STDEV 63.0(H) 37.1 - 48.7 fL [facility] RBC 3.73(L) 3.90 - 4.90 M/uL [facility] MCHC 34.3 31.5 - 35.5 % [facility] MCV 107.0(H) 82.0 - 99.0 fL [facility] PLATELETS 380(H) 140 - 350 K/uL [facility] HEMOGLOBIN 13.7 11.8 - 14.8 g/dL [facility] LYMPHOCYTES 7(L) 16 - 45 % [facility] LYMPHOCYTE ABSOLUTE 0.60(L) 0.70 - 4.50 K/uL [facility] BASOPHILS 0 0 - 2 % [facility] BASOPHILS ABSOLUTE 0.02 0.00 - 0.20 K/uL [facility] MONOCYTES 2(L) 3 - 13 % [facility] MONOCYTE ABSOLUTE 0.18 0.10 - 1.30 K/uL [facility] NEUTROPHILS 91(H) 45 - 70 % [facility] NEUTROPHIL ABSOLUTE 7.94(H) 1.90 - 7.00 K/uL [facility] EOSINOPHILS 0 0 - 7 % [facility] EOSINOPHIL ABSOLUTE 0.01 0.00 - 0.70 K/uL [facility] Blood specimen (specimen) 07/13/2009 12:26 PM CDT 07/13/2009 12:36 PM CDT Sujatha Prado MD HEMATOLOGY ORDERABLES Edited [facility] CLIA# [id number] [address] [place] [address] documented in this encounter Visit Diagnoses Diagnosis Regional enteritis of unspecified site (CMS/HCC) Regional enteritis of unspecified site documented in this encounter Care Teams Office Workforce Planner Relationship Specialty Start Date End Date Tessy Francois DO [address] [place] [address] PCP - General 11/17/15 documented as of this encounter
--- OUTSIDE RECORDS SUMMARY | 2025-01-26 13:40 | XMS_ITS | Encounter Summary ---
Author Organization [facility] Address 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 Gender Identity Not on file Sexual Orientation [...] CDT) GLUCOSE 151(H) 65 - 99 mg/dL [facility] AST 17 12 - 32 U/L [facility] BUN 11 6 - 20 mg/dL [facility] CALCIUM 9.2 8.6 - 10.2 mg/dL [facility] CHLORIDE 102 96 - 108 mmol/L [facility] ALBUMIN 4.1 3.4 - 4.8 g/dL [facility] CREATININE 0.67 0.51 - 0.95 mg/dL [facility] SODIUM 138 135 - 145 mmol/L [facility] ALT 14 0 - 31 U/L [facility] ALKALINE PHOSPHATASE 61 35 - 104 U/L [facility] BILIRUBIN TOTAL 0.4 0.2 - 1.0 mg/dL [facility] CO2 25 22 - 30 mmol/L [facility] TOTAL PROTEIN 7.0 6.3 - 8.6 g/dL [facility] POTASSIUM 3.6 3.5 - 4.9 mmol/L [facility] GFR, >60 >=60 mL/min/1. 7 sq meter [facility] GFR >60 >=60 mL/min/1. 7 sq meter [facility] Comment: Modification of Diet in Renal Disease (MDRD) study formula. Estimated GFR rate interpretative information for both Americans and non- Americans is available on the [facility] Intranet at: [email or web address] Select: Lab Policies and Procedures Select: Reference Ranges - GFR Blood specimen (specimen) 04/18/2009 1:13 PM CDT 04/18/2009 2:00 PM CDT Sujatha Prado MD CHEMISTRY ORDERABLES Edited INTERFACE SYSTEM Refer to clinic/hospital department [facility] CLIA# [id number] [address] [place] [address] * (ABNORMAL) CBC WITH DIFFERENTIAL (04/18/2009 1:13 PM CDT) MCV 101.5(H) 82.0 - 99.0 fL [facility] PLATELETS 319 140 - 350 K/uL [facility] HEMOGLOBIN 13.3 11.8 - 14.8 g/dL [facility] RDW 14.1 11.5 - 14.5 % [facility] WBC 7.2 4.0 - 9.8 K/uL [facility] MCH 33.9(H) 27.2 - 32.6 pg [facility] MPV 10.3 9.3 - 12.4 fL [facility] HEMATOCRIT 39.8 35.5 - 44.0 % [facility] RDW-STDEV 52.2(H) 37.1 - 48.7 fL [facility] RBC 3.92 3.90 - 4.90 M/uL [facility] MCHC 33.4 31.5 - 35.5 % [facility] EOSINOPHILS 1 0 - 7 % [facility] EOSINOPHIL ABSOLUTE 0.10 0.00 - 0.70 K/uL [facility] LYMPHOCYTES 21 16 - 45 % [facility] LYMPHOCYTE ABSOLUTE 1.50 0.70 - 4.50 K/uL [facility] BASOPHILS 0 0 - 2 % [facility] BASOPHILS ABSOLUTE 0.03 0.00 - 0.20 K/uL [facility] MONOCYTES 5 3 - 13 % [facility] MONOCYTE ABSOLUTE 0.37 0.10 - 1.30 K/uL [facility] NEUTROPHILS 72(H) 45 - 70 % [facility] NEUTROPHIL ABSOLUTE 5.15 1.90 - 7.00 K/uL [facility] Blood specimen (specimen) 04/18/2009 1:13 PM CDT 04/18/2009 1:53 PM CDT us Sujatha Prado MD HEMATOLOGY ORDERABLES Edited INTERFACE SYSTEM Refer to clinic/hospital department [facility] CLIA# [id number] [address] [place] [address] documented in this encounter Visit Diagnoses Diagnosis Regional enteritis of unspecified site (CMS/HCC) Regional enteritis of unspecified site documented in this encounter Care Teams Hand Washer Relationship Specialty Start Date End Date Tessy Francois DO [address] [place] [address] PCP - General 11/17/15 documented as of this encounter
--- OUTSIDE RECORDS SUMMARY | 2025-01-26 13:40 | XMS_ITS | Encounter Summary ---
Author Organization [facility] Address 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 Gender Identity Not on file Sexual Orientation [...] 8.6 - 10.2 mg/dL [facility] CHLORIDE 101 96 - 108 mmol/L [facility] ALBUMIN 4.5 3.4 - 4.8 g/dL [facility] CREATININE 0.77 0.51 - 0.95 mg/dL [facility] SODIUM 138 135 - 145 mmol/L [facility] ALT 46(H) 0 - 31 U/L [facility] ALKALINE PHOSPHATASE 54 35 - 104 U/L [facility] BILIRUBIN TOTAL 0.3 0.2 - 1.0 mg/dL [facility] CO2 28 22 - 30 mmol/L [facility] TOTAL PROTEIN 7.2 6.3 - 8.6 g/dL [facility] POTASSIUM 3.9 3.5 - 4.9 mmol/L [facility] GLUCOSE 96 65 - 99 mg/dL [facility] AST 33(H) 12 - 32 U/L [facility] BUN 7 6 - 20 mg/dL [facility] GFR, >60 >=60 mL/min/1.7 sq meter [facility] GFR >60 >=60 mL/min/1.7 sq meter [facility] Comment: Modification of Diet in Renal Disease (MDRD) study formula. Estimated GFR rate interpretative information for both Americans and non- Americans is available on the [facility] Intranet at: [email or web address] Select: Lab Policies and Procedures Select: Reference Ranges - GFR Blood specimen (specimen) 03/10/2009 2:33 PM CDT 03/10/2009 3:22 PM CDT Sujatha Prado MD CHEMISTRY ORDERABLES Edited INTERFACE SYSTEM Refer to clinic/hospital department [facility] CLIA# [id number] [address] [place] [address] * (ABNORMAL) CBC WITH DIFFERENTIAL (03/10/2009 2:33 PM CDT) RBC 4.13 3.90 - 4.90 M/uL [facility] MCHC 32.7 31.5 - 35.5 % [facility] MCV 101.5(H) 82.0 - 99.0 fL [facility] PLATELETS 315 140 - 350 K/uL [facility] HEMOGLOBIN 13.7 11.8 - 14.8 g/dL [facility] RDW 14.3 11.5 - 14.5 % [facility] WBC 7.6 4.0 - 9.8 K/uL [facility] MCH 33.2(H) 27.2 - 32.6 pg [facility] MPV 10.5 9.3 - 12.4 fL [facility] HEMATOCRIT 41.9 35.5 - 44.0 % [facility] RDW-STDEV 52.8(H) 37.1 - 48.7 fL [facility] NEUTROPHILS 67 45 - 70 % [facility] NEUTROPHIL ABSOLUTE 5.13 1.90 - 7.00 K/uL [facility] EOSINOPHILS 2 0 - 7 % [facility] EOSINOPHIL ABSOLUTE 0.17 0.00 - 0.70 K/uL [facility] LYMPHOCYTES 21 16 - 45 % [facility] LYMPHOCYTE ABSOLUTE 1.60 0.70 - 4.50 K/uL [facility] BASOPHILS 1 0 - 2 % [facility] BASOPHILS ABSOLUTE 0.05 0.00 - 0.20 K/uL [facility] MONOCYTES 9 3 - 13 % [facility] MONOCYTE ABSOLUTE 0.66 0.10 - 1.30 K/uL [facility] Blood specimen (specimen) 03/10/2009 2:33 PM CDT 03/10/2009 3:24 PM CDT us Sujatha Prado MD HEMATOLOGY ORDERABLES Edited INTERFACE SYSTEM Refer to clinic/hospital department [facility] CLIA# [id number] [address] [place] [address] documented in this encounter Visit Diagnoses Diagnosis Regional enteritis of unspecified site (CMS/HCC) Regional enteritis of unspecified site documented in this encounter Care Teams Mattress Renovator Relationship Specialty Start Date End Date Tessy Francois DO [address] [place] [address] PCP - General 11/17/15 documented as of this encounter
--- OUTSIDE RECORDS SUMMARY | 2025-01-26 13:40 | XMS_ITS | Encounter Summary ---
Author Organization [facility] Address 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 Gender Identity Not on file Sexual [...] CDT) CALCIUM 9.6 8.6 - 10.2 mg/dL [facility] CHLORIDE 100 96 - 108 mmol/L [facility] ALBUMIN 4.4 3.4 - 4.8 g/dL [facility] CREATININE 0.67 0.51 - 0.95 mg/dL [facility] SODIUM 139 135 - 145 mmol/L [facility] ALT 13 0 - 31 U/L [facility] ALKALINE PHOSPHATASE 48 35 - 104 U/L [facility] BILIRUBIN TOTAL 0.4 0.2 - 1.0 mg/dL [facility] CO2 26 22 - 30 mmol/L [facility] TOTAL PROTEIN 7.2 6.3 - 8.6 g/dL [facility] POTASSIUM 4.0 3.5 - 4.9 mmol/L [facility] GLUCOSE 109(H) 65 - 99 mg/dL [facility] AST 15 12 - 32 U/L [facility] BUN 7 6 - 20 mg/dL [facility] GFR, >60 >=60 mL/min/1. 7 sq meter [facility] GFR >60 >=60 mL/min/1. 7 sq meter [facility] Comment: Modification of Diet in Renal Disease (MDRD) study formula. Estimated GFR rate interpretative information for both Americans and non- Americans is available on the [facility] Intranet at: [email or web address] Select: Lab Policies and Procedures Select: Reference Ranges - GFR 05/18/2009 4:50 PM CDT 05/18/2009 5:14 PM CDT us Sujatha Prdao MD CHEMISTRY ORDERABLES Edited INTERFACE SYSTEM Refer to clinic/hospital department [facility] CLIA# [id number] [address] [place] [address] * C-REACTIVE PROTEIN (05/18/2009 4:50 PM CDT) [facility] CRP 0.5 0.0 - 0.8 mg/dL [facility] 05/18/2009 4:50 PM CDT 05/18/2009 5:14 PM CDT us Sujatha Prado MD CHEMISTRY ORDERABLES Final Resu lt INTERFACE SYSTEM Refer to clinic/hospital department [facility] CLIA# [id number] [address] [place] [address] * (ABNORMAL) CBC WITH DIFFERENTIAL (05/18/2009 4:50 PM CDT) [facility] RBC 3.59(L) 3.90 - 4.90 M/uL [facility] MCHC 33.9 31.5 - 35.5 % [facility] MCV 102.8(H) 82.0 - 99.0 fL [facility] PLATELETS 373(H) 140 - 350 K/uL [facility] HEMOGLOBIN 12.5 11.8 - 14.8 g/dL [facility] RDW 14.1 11.5 - 14.5 % [facility] WBC 8.3 4.0 - 9.8 K/uL [facility] MCH 34.8(H) 27.2 - 32.6 pg [facility] MPV 10.1 9.3 - 12.4 fL [facility] HEMATOCRIT 36.9 35.5 - 44.0 % [facility] RDW-STDEV 52.3(H) 37.1 - 48.7 fL [facility] MONOCYTES 7 3 - 13 % [facility] MONOCYTE ABSOLUTE 0.62 0.10 - 1.30 K/uL [facility] NEUTROPHILS 73(H) 45 - 70 % [facility] NEUTROPHIL ABSOLUTE 6.06 1.90 - 7.00 K/uL [facility] EOSINOPHILS 2 0 - 7 % [facility] EOSINOPHIL ABSOLUTE 0.16 0.00 - 0.70 K/uL [facility] LYMPHOCYTES 18 16 - 45 % [facility] LYMPHOCYTE ABSOLUTE 1.46 0.70 - 4.50 K/uL [facility] BASOPHILS 1 0 - 2 % [facility] BASOPHILS ABSOLUTE 0.04 0.00 - 0.20 K/uL [facility] 05/18/2009 4:50 PM CDT 05/18/2009 5:12 PM CDT us Sujatha Prado MD HEMATOLOGY ORDERABLES Edited INTERFACE SYSTEM Refer to clinic/hospital department [facility] CLIA# [id number] [address] [place] [address] documented in this encounter Visit Diagnoses Diagnosis Regional enteritis of unspecified site (CMS/HCC) Regional enteritis of unspecified site documented in this encounter Care Teams Marketing Lead Relationship Specialty Start Date End Date Tessy Francois DO [address] [place] [address] PCP - General 11/17/15 documented as of this encounter
--- OUTSIDE RECORDS SUMMARY | 2025-01-26 13:41 | XMS_ITS ---
Author Organization [facility] Address [address] [address] Care Team Providers Care Drop Wire Aliner Name Role Phone Kirsten Eaton APN Primary Care Provider Unavailab Max Gallardo Unavailable [phone] Medications Medication SIG (Take, Route, Frequency, Duration) [...] Female Encounters Encounter Location Date Provider Diagnosis [facility], [place] [address] [address] 10/19/2024 Max Valdes Assessments Encounter Date Diagnosis (ICD Code) Assessment Notes Treatment Notes Treatment Clinical Notes Section Notes 10/19/2024 Other Plan Of Treatment No Information Progress Notes * ARIADNA COLEOB:1960 (64 yo F)Acc No.[id number]:10/19/2024 Patient: Brandyn JIMENEZZEINA GONZALEZ Provider: ALISON Lund :1960 A ge:64 Y S ex:Female Date:10/19/2024 Phone: Address:[address] [place] [address], [place] [id number] Pcp:Kirsten Eaton APN Subjective: * Chief Complaints: * * Medical History: * Surgical History: * Hospitalization/Major Diagno stic Procedure: * Medications: T akingFLUoxetine HCl 40 MG Capsule 1 capsule Oral Once a day hydrOXYzine Pamoate 25 MG Capsule 1 capsule Orally three times a day As neededHair Skin & Nails Prebiotic Product NexIUM 40 MG Capsule Delayed Release 1 capsule Orally Once a day Spironolactone 25 MG Tablet Oral Synthroid 50 MCG Tablet Oral , Notes to Pharmacist: Pt is taking a different brand.Insulin Syringe 31G X 5/16 1 ML Miscellaneous USE TO INJECT 6 TIMES A WEEK PER ALLERGY INJECTIONS Esomeprazole Magnesium 40 MG Capsule Delayed Release Oral Taking FLUoxetine HCl 40 MG Capsule 1 capsule Oral Once a day Taking hydrOXYzine Pamoate 25 MG Capsule 1 capsule Orally three times a day As neededTaking Hair Skin & Nails Taking Prebiotic Product Taking NexIUM 40 MG Capsule Delayed Release 1 capsule Orally Once a day Taking Spironolactone 25 MG Tablet Oral Taking Synthroid 50 MCG Tablet Oral , Notes to Pharmacist: Pt is taking a different brand.Taking Insulin Syringe 31G X 5/16 1 ML Miscellaneous USE TO INJECT 6 TIMES A WEEK PER ALLERGY INJECTIONS Taking Esomeprazole Magnesium 40 MG Capsule Delayed Release Oral Objective: * Vitals: Assessment: Plan: * Treatment: * Procedure Codes: * Billing Information: * Visit Code: * Procedure Codes: * TALIZER TENDER Sign off status: Completed true * Provider: ALISON Lund Date: 12/19/2023 Generated for Fly ramirez/Justyna/Demarco on: 01/26/2025 01:41 PM CRYSTALIZER TENDER
--- OUTSIDE RECORDS SUMMARY | 2025-01-26 13:41 | XMS_ITS | Encounter Summary ---
Author Organization [facility] Address 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 Gender Identity Not on file Sexual Orientation [...] AM CDT Narrative 09/28/2008 11:12 AM CDT [facility] [address] [place], [place] [address] Admit Date: 09/24/2008 ZEINA COLE Sex: F Admit Prov: NADIA SARABIA Date: 1960 Primary Care Prov: NADIA SARABIA CMRN: [id number] Room: [facility] SSN: [id number] IMAGING SERVICES Ordering Prov: N/A Accession Number: [id number] Interpretation SMALL BOWEL SERIES, 09/28/2008 Clinical History: Crohn's disease, right lower quadrant abdominal pain, possible jejunal intussusception seen on recent abdominal CT. Findings: A preliminary abdominal machine rug cleaner radiograph is not remarkable. Following oral administration [...] Procedure Note Tristan Cates MD - 09/28/2008 [facility] [address] [place], [place] [address] Admit Date: 09/24/2008 COLE ZEINA [place] Sex: F Admit Prov: NADIA SARABIA Date: 1960 Primary Care Prov: NADIA SARABIA CMRN: [id number] Room: [facility] SSN: [id number] IMAGING SERVICES Ordering Prov: N/A Interpretation SMALL BOWEL SERIES, 09/28/2008 Clinical History: Crohn's disease, right lower quadrant abdominalpain, possible jejunal intussusception seen on recent abdominal CT. Findings: A preliminary abdominal machine rug cleaner radiograph is notremarkable. Following oral administration of [...] ALKALINE PHOSPHATASE 66 35 - 104 U/L [facility] ALT 14 0 - 31 U/L [facility] CHLORIDE 98 96 - 108 mmol/L [facility] AST 15 12 - 32 U/L [facility] BUN 7 6 - 20 mg/dL [facility] TOTAL PROTEIN 6.5 6.3 - 8.6 g/dL [facility] BILIRUBIN TOTAL 0.3 0.2 - 1.0 mg/dL [facility] CREATININE 0.76 0.51 - 0.95 mg/dL [facility] CO2 27 22 - 30 mmol/L [facility] ALBUMIN 3.7 3.4 - 4.8 g/dL [facility] SODIUM 132(L) 135 - 145 mmol/L [facility] CALCIUM 8.8 8.6 - 10.2 mg/dL [facility] GLUCOSE 123(H) 65 - 99 mg/dL [facility] POTASSIUM 3.2(L) 3.5 - 4.9 mmol/L [facility] GFR, >60 >=60 mL/min/1. 7 sq meter [facility] GFR >60 >=60 mL/min/1. 7 sq meter [facility] Comment: Modification of Diet in Renal Disease (MDRD) study formula. Estimated GFR rate interpretative information for both Americans and non- Americans is available on the [facility] Intranet at: [email or web address] Select: Lab Policies and Procedures Select: Reference Ranges - GFR Blood specimen (specimen) 09/24/2008 2:27 PM CDT 09/24/2008 2:33 PM CDT Nadia Sarabia MD CHEMISTRY ORDERABLES Edited INTERFACE SYSTEM Refer to clinic/hospital department [facility] CLIA# [id number] [address] [facility] [address] [address] * (ABNORMAL) CBC WITH DIFFERENTIAL (09/24/2008 2:27 PM CDT) WBC 8.0 4.0 - 9.8 K/uL [facility] MCH 32.1 27.2 - 32.6 pg [facility] MPV 10.2 9.3 - 12.4 fL [facility] HEMATOCRIT 38.8 35.5 - 44.0 % [facility] RDW-STDEV 43.3 37.1 - 48.7 fL [facility] RBC 4.02 3.90 - 4.90 M/uL [facility] MCHC 33.2 31.5 - 35.5 % [facility] MCV 96.5 82.0 - 99.0 fL [facility] PLATELETS 312 140 - 350 K/uL [facility] HEMOGLOBIN 12.9 11.8 - 14.8 g/dL [facility] RDW 12.3 11.5 - 14.5 % [facility] MONOCYTES 9 3 - 13 % [facility] MONOCYTE ABSOLUTE 0.75 0.10 - 1.30 K/uL [facility] NEUTROPHILS 71(H) 45 - 70 % [facility] NEUTROPHIL ABSOLUTE 5.70 1.90 - 7.00 K/uL [facility] EOSINOPHILS 3 0 - 7 % [facility] EOSINOPHIL ABSOLUTE 0.20 0.00 - 0.70 K/uL [facility] LYMPHOCYTES 16 16 - 45 % [facility] LYMPHOCYTE ABSOLUTE 1.30 0.70 - 4.50 K/uL [facility] BASOPHILS 1 0 - 2 % [facility] BASOPHILS ABSOLUTE 0.05 0.00 - 0.20 K/uL [facility] Blood specimen (specimen) 09/24/2008 2:27 PM CDT 09/24/2008 2:33 PM CDT us Nadia Sarabia MD HEMATOLOGY ORDERABLES Edited INTERFACE SYSTEM Refer to clinic/hospital department [facility] CLIA# [id number] [address] [facility] [address] [address] * CT ABDOMEN PELVIS W CONTRAST (09/24/2008 2:12 PM CDT) Anatomical Region Laterality Modality Abdomen Other 09/24/2008 2:12 PM CDT Narrative 09/24/2008 4:46 PM CDT [facility] [address], [place] [address] Admit Date: 09/24/2008 ZEINA COLE Sex: F Admit Prov: NADIA SARABIA Date: 1960 Primary Care Prov: NADIA SARABIA CMRN: [id number] Room: [facility] SSN: [id number] IMAGING SERVICES Ordering Prov: N/A Accession Number: [id number] Interpretation CT SCAN OF THE ABDOMEN AND [...] Procedure Note Olimpia Cavanaugh MD - 09/24/2008 [facility] [address] [place], [place] [address] Admit Date: 09/24/2008 ZEINA COLE Sex: F Admit Prov: NADIA SARABIA Date: 1960 Primary Care Prov: NADIA SARABIA CMRN: [id number] Room: [facility] SSN: [id number] IMAGING SERVICES Ordering Prov: N/A Interpretation CT [...] CREATININE POC 0.8 0.6 - 1.3 mg/dL [facility] GFR, >60 >=60 mL/min/1.7 sq meter [facility] GFR >60 >=60 mL/min/1.7 sq meter [facility] Capillary blood specimen (specimen) 09/24/2008 2:05 PM CDT 09/24/2008 2:05 PM CDT us Nadia Sarabia MD POINT OF CARE TESTING Edited INTERFACE SYSTEM Refer to clinic/hospital department [facility] CLIA# [id number] [address] [place] [address] documented in this encounter Visit Diagnoses Not on filedocumented in this encounter Care Teams Munitions Worker Relationship Specialty Start Date End Date Tessy Francois DO [address] [place] [id number] PCP - General 11/17/15 documented as of this encounter
--- OUTSIDE RECORDS SUMMARY | 2025-01-26 13:41 | XMS_ITS | Encounter Summary ---
Author Organization [employer] Address [address] [place] [address] Care Team Providers Care Digital Sales Executive Name Role Phone Tessy Francois DO Primary Care Provider [phone] Encounter Details Date Type Department Care Team (Late st Contact Info) Description 08/28/2007 Outpatient Historical [facility] [place] [address] [address] [place] [address] Other Chest Pain (Primary Dx) Social History Tobacco Use Types Packs/Day Years Used Date Smoking Tobacco: Never Assessed Comments Unknown Sex and Gender Information Value Date Recorded Sex Assigned at Not on file 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 Gender Identity Not on file Sexual Orientation [...] INTERFACE SYSTEM 08/29/2007 6:00 AM CDT us VijaOvonyxkumari Ying CHEMISTRY ORDERABLES Edited Performing Organization Address [facility] de Phone Number INTERFACE SYSTEM Refer [...] classifications for lipids are available on the [facility] Intranet at: [email or web address] Select: Lab Policies and Procedures,Current Select: Lipid Panel Interpretation 08/29/2007 6:00 AM CDT us VijaCinsayi Ying CHEMISTRY ORDERABLES Edited Performing Organization Address [facility] de Phone Number INTERFACE SYSTEM Refer to clinic/hospital department * PHOSPHORUS (08/29/2007 6:00 AM CDT) PHOSPHORUS 4.0 2.5 - 4.5 mg/dL INTERFACE SYSTEM 08/29/2007 6:00 AM CDT us VijayakDashBursti Ying CHEMISTRY ORDERABLES Edited Performing Organization Address City/[facility] Co de Phone Number INTERFACE SYSTEM Refer to clinic/hospital department * MAGNESIUM LEVEL (08/29/2007 6:00 AM CDT) MAGNESIUM 2.2 1.5 - 2.5 mg/dL INTERFACE SYSTEM 08/29/2007 6:00 AM CDT us VijayakDashBursti Ying CHEMISTRY ORDERABLES Edited Performing Organization Address City/State/[facility] de Phone Number INTERFACE SYSTEM Refer to clinic/hospital department * TROPONIN (W/REFLEX CKMB/CK) (08/28/2007 11:35 PM CDT) TROPONIN T 0.01 <=0.03 ng/mL INTERFACE SYSTEM TROPONIN T INTERP Negative INTERFACE SYSTEM 08/28/2007 11:3 5 PM CDT Viangel Ying CHEMISTRY ORDERABLES Edited Performing Organization Address [facility] de Phone Number INTERFACE SYSTEM Refer [...] Performing Organization Address [facility] Phone Number INTERFACE SYSTEM Refer to clinic/hospital department * TROPONIN (W/REFLEX CKMB/CK) (08/28/2007 5:13 PM CDT) TROPONIN T <0.01 <=0.03 ng/mL INTERFACE SYSTEM TROPONIN T INTERP Negative INTERFACE SYSTEM 08/28/2007 5:13 PM CDT Haley Ying CHEMISTRY ORDERABLES Edited Performing Organization Address [facility] de Phone Number INTERFACE SYSTEM Refer to clinic/hospital department * TROPONIN (W/REFLEX CKMB/CK) (08/28/2007 2:52 PM CDT) TROPONIN T <0.01 <=0.03 ng/mL INTERFACE SYSTEM TROPONIN T INTERP Negative INTERFACE SYSTEM 08/28/2007 2:52 PM CDT Ajsánchez Ying CHEMISTRY ORDERABLES Edited Performing Organization Address City/[facility] Co de Phone Number INTERFACE SYSTEM [...] Performing Organization Address [facility] de Phone Number INTERFACE SYSTEM Refer [...] on the [facility] Intranet at: [email or web address] Select: Lab Policies and Procedures Select: [...] Primary documented in this encounter Care Teams Digital Sales Executive Relationship Specialty Start Date End Date Tessy Francois DO [address] [place] [address] PCP - General 11/17/15 documented as of this encounter
--- OUTSIDE RECORDS SUMMARY | 2025-01-26 13:41 | XMS_ITS | Encounter Summary ---
Author Organization [employer] Address [address] [place] [address] Care Team Providers Care Retail Coverage Merchandiser Name Role Phone Tessy Francois DO Primary Care Provider [phone] Encounter Details Date Type Department Care Team (Late st Contact Info) Description 08/29/2007 Outpatient Historical [facility] Support Serv. ([facility]) [address] 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
--- OUTSIDE RECORDS SUMMARY | 2025-01-26 13:41 | XMS_ITS | Clinical Summary ---
Author Organization [facility] Administrative Offices Address [address] [place] [address] Care Team Providers Care Slice Plug Cutter Operator Name Role Phone Tessy Francois DO Primary Care Provider [phone] Allergies Active Allergy Reactions Criticality Noted Date Comments Cephalexin Anaphylaxis High 02/26/2013 Ciprofloxacin Unknown 02/26/2013 Hydrocodone Itching Low 04/01/2014 Unclassified Drug Seizure High 05/16/2017 spirolactine Medications FLUoxetine (PROZAC) 20 mg Oral tablet Take 1 Tab by mouth daily. 30 Tab 11 3 Active azaTHIOprine (IMURAN) 50 mg Oral tablet 3 Active NASCOBAL 500 mcg Both Nostril Letcher 3 Active DELZICOL 400 mg Oral CpDR [...] migh t be different from the original. Drilling Superintendent - Dr Shashank Rodriguez Problem Noted Date [...] on file Legal Sex Female 5:28 AM SECURITY ARCHITECT Gender Identity Not on file Sexual Orientation Not on file Occupation Industry Job Start Date Job End Date Not on file Not on file Not on file Not on file Last Filed Vital Signs Vital Sign Reading Time Taken Comments Blood Pressure 136/72 12/30/2017 8:37 AM SECURITY ARCHITECT Pulse 71 05/16/2017 10:45 AM CDT Temperature - - Respiratory Rate 17 08/11/2013 11:39 AM CDT Oxygen Saturation - - Inhaled Oxygen Concentration - - Weight 73.5 kg (162 lb) 12/30/2017 8:37 AM SECURITY ARCHITECT Height 171.5 cm (5' 7.5 ) 12/30/2017 8:37 AM SECURITY ARCHITECT Body Mass Index 25 12/30/2017 8:37 AM SECURITY ARCHITECT Plan of Treatment Health Maintenance Due Date [...] OR WO CAD Routine 01/01/2018 10:27 AM SECURITY ARCHITECT Nipple discharge, bloody CERV/VAG CYTO SCREEN PAP RLFX HPV Routine 05/16/2017 11:14 AM CDT Encounter for gynecological examination without abnormal finding POC OCCULT BLOOD 1 CARD Routine 04/01/2014 1:30 PM CDT Routine gynecological examination from Last 3 Months or Most Recently Relevant to Health Maintenance Results * MAMMO DIAGNOSTIC BILATERAL W OR WO CAD (01/01/2018 10:27 AM SECURITY ARCHITECT) Anatomical Region Laterality Modality Breast Bilateral Mammography 01/01/2018 10:2 7 AM SECURITY ARCHITECT Impressions 01/01/2018 2:29 PM SECURITY ARCHITECT IMPRESSION: Bilateral breast implants. Negative and stable bilateral diagnostic mammogram. Mildly dilated ducts and occasional cysts, otherwise negative bilateral subareolar breast sonogram. If the bloody nipple discharge persists, recommend further evaluation with breast MRI. Overall Assessment: BI-RADS Category: 2. Benign finding(s). Dictation Location: [facility] 01/01/2018 2:29 PM SECURITY ARCHITECT BILATERAL DIAGNOSTIC DIGITAL IMPLANT MAMMOGRAMS WITH CAD [...] BI-RADS Category: 2. Benign finding(s). Dictation Location: [facility] Danny Chan MD MAMMO ORDERABLES [...] has been evaluated with computer assisted technology. GARDENING SUPERVISOR: SEE COMMENT 2016 10:31 AM CDT [facility] Comment: TMK, CT(ASCP) CT screening location: [place] [address] [address] [address] Genital SWAB OF ENDOCERVIX / Unknown Collection / Unknown 05/16/2017 11:14 AM CDT 05/16/2017 8:09 PM CDT Narrative [facility] - 05/23/2017 10:31 AM CDT Performing Organization Information: Site ID: SL Name: [facility] Address: [facility] Administration [place] [address] Director: Chad Lemos MD Rock Bullock MD PATHOLOGY/CYTOLOGY ORDERABLES Fi nal Result [facility] * POC OCCULT BLOOD 1 CARD (04/01/2014 1:30 PM CDT) OCCULT BLOOD #1 Negative Negative [facility] Stool specimen (specimen) 04/01/2014 1:30 PM CDT us Rock Bullock MD POINT OF CARE TESTING Final Resu lt [facility] from Last 3 Months or Most Recently Relevant to Health Maintenance Insurance [address] [place] [id number] Member Subscriber Plan / Payer (Ef fective 2021-Present) Name:Gina Cole Relation to Subscriber:Spouse Name:SHAWNEE COLE Date of :1963 (Home) (Work) Address: [address] [place] [address] Payer ID:[id number] (NAIC) Type:PPO Address: [facility] [address] [place] [id number] Care Teams Slice Plug Cutter Operator Relationship Specialty Start Date End Date Tessy Francois DO [address] [place] [address] PCP - General 11/17/15
--- OUTSIDE RECORDS SUMMARY | 2025-01-26 13:41 | XMS_ITS | Encounter Summary ---
Author Organization [email or web address] Address [address] [place] [address] Care Team Providers Care Medical Claims Examiner Name Role Phone Tessy Francois DO Primary Care Provider [phone] Encounter Details Date Type Department Care Team (Late st Contact Info) Description 10/07/2008 Outpatient Historical [facility] Madelyn Rae MD [address] [facility] [address] [place] [address] Regional Enteritis of Unspecified Site (CMS/HCC) Social History Tobacco Use Types Packs/Day Years Used Date Smoking Tobacco: Never Assessed Comments Unknown Sex and Gender Information Value Date Recorded Sex Assigned at Not on file Legal Sex Female 5:28 AM CHILD CAREGIVER Gender Identity Not on file Sexual Orientation Not on file documented as of this encounter Plan of Treatment Not on file documented as of this encounter Procedures Procedure Name Priority Date/Time Associated Diagnosis Comments PATHOLOGY Routine 10/07/2008 3:22 PM CHILD CAREGIVER STOOL CULTURE (SILVANO,SHIG,CAMPY,ECO 157) Routine 10/07/2008 3:17 PM CHILD CAREGIVER C. DIFFICILE DETECTION Routine 10/07/2008 3:17 PM CHILD CAREGIVER OVA AND PARASITE SCREEN Routine 10/07/2008 3:17 PM CHILD CAREGIVER POC , URINE Routine 10/07/2008 1:40 PM CHILD CAREGIVER documented in this encounter Results * PATHOLOGY (10/07/2008 3:22 PM CHILD CAREGIVER) FINAL REPORT [facility] [address] [place], [place] [address] Patient: ZEINA COLE : 1960 Procedure Date: 10/07/2008 Accession Date: 10/07/2008 Case No: [id number] Ordering Dr: MADELYN RAE Case types AW, BW, FW, NW and SH are performed by [facility], [place], [place] SURGICAL PATHOLOGY & NON-GYNECOLOGIC CYTOPATHOLOGY REPORT [...] 04:36 pm Microscopic: The slides are labeled [id number], Zeina Cole. Sections of the left colon [...] 09:19 am INTERFACE SYSTEM 10/07/2008 3:22 PM CHILD CAREGIVER us Madelyn Rae MD PATHOLOGY/CYTOLOGY ORDERABLE S Final Result INTERFACE SYSTEM Refer to clinic/hospital department * OVA AND PARASITE SCREEN (10/07/2008 3:17 PM CHILD CAREGIVER) PRELIMINARY REPORT Pending [facility] FINAL REPORT Concentration : No ova or parasites seen. Trichrome: No ova or parasites seen. [facility] 10/07/2008 3:17 PM CHILD CAREGIVER 10/07/2008 4:43 PM CHILD CAREGIVER Narrative INTERFACE SYSTEM - 10/14/2008 10:48 AM CHILD CAREGIVER fax to dr rea [facility], [address] [place] [address] Performed by [employer] [address] Madelyn Rae MD MICROBIOLOGY - GENERAL ORDER DIVINE Final Result Performing Organization Address [facility] Phone Number INTERFACE SYSTEM Refer to clinic/hospital department [facility] CLIA# [id number] [address] [place] [address] * STOOL CULTURE (SILVANO,SHIG,CAMPY,[id number]) (10/07/2008 3:17 PM CHILD CAREGIVER) PRELIMINARY REPORT No Salmonella isolated. No Shigella isolated. No Escherichia coli serogroup O157:H7 isolated. [facility] FINAL REPORT No Salmonella isolated. No Shigella isolated. No Escherichia coli serogroup O157:H7 isolated. No Camplylobacter isolated. [facility] 10/07/2008 3:17 PM CHILD CAREGIVER 10/07/2008 4:43 PM CHILD CAREGIVER Narrative INTERFACE SYSTEM - 10/10/2008 7:51 AM CHILD CAREGIVER fax to dr rae Madelyn Rae MD MICROBIOLOGY - GENERAL ORDER DIVINE Final Result Performing Organization Address [facility] Co de Phone Number INTERFACE SYSTEM Refer to clinic/hospital department [facility] CLIA# [id number] [address] [place] [address] * CLOSTRIDIUM DIFFICILE TOXIN (10/07/2008 3:17 PM CHILD CAREGIVER) FINAL REPORT NO Clostridium difficile Toxin A or B detected by EIA. A negative result does not rule out C. difficile associated diarrhea or colitis. [facility] Stool specimen (specimen) 10/07/2008 3:17 PM CHILD CAREGIVER 10/07/2008 4:43 PM CHILD CAREGIVER Narrative INTERFACE SYSTEM - 10/08/2008 3:11 PM CHILD CAREGIVER fax to dr rae Madelyn Rae MD MICROBIOLOGY - GENERAL ORDER DIVINE Final Result Performing Organization Address [facility] de Phone Number INTERFACE SYSTEM Refer to clinic/hospital department [facility] CLIA# [id number] [address] [place] [address] * POC , URINE (10/07/2008 1:40 PM CHILD CAREGIVER) , URINE POC Negative Negative [facility] Urine specimen (specimen) 10/07/2008 1:40 PM CHILD CAREGIVER 10/07/2008 1:40 PM CHILD CAREGIVER Madelyn Rae MD POINT OF CARE TESTING Final Result Performing Organization Address [facility] de Phone Number INTERFACE SYSTEM Refer to clinic/hospital department [facility] CLIA# [id number] [address] [place] [address] documented in this encounter Visit Diagnoses Diagnosis Regional enteritis of unspecified site (CMS/HCC) Regional enteritis of unspecified site documented in this encounter Care Teams Medical Claims Examiner Relationship Specialty Start Date End Date Tessy Francois DO [address] [place] [address] PCP - General 11/17/15 documented as of this encounter
--- OUTSIDE RECORDS SUMMARY | 2025-01-26 13:41 | XMS_ITS | Encounter Summary ---
Author Organization [facility] Address [address] [facility] Attn: Epic Prelude ADT [place] [address] Care Team Providers Care Educational Adviser Name Role Phone Tessy Francois DO Primary Care Provider [phone] [phone] Encounter Details Date Type Department Care Team (Late st Contact Info) Description 08/27/2007 Outpatient Historical Amari Emmanuel MD NO ADDRESS ON FILE Social History Tobacco Use Types Packs/Day Years Used Date Smoking Tobacco: Never Assessed Comments Unknown Sex and Gender Information Value Date Recorded Sex Assigned at Not on file Legal Sex Female 5:28 AM ACTIONSCRIPT DEVELOPER Gender Identity Not on file Sexual Orientation Not on file documented as of this encounter Plan of Treatment Not on file documented as of this encounter Visit Diagnoses Not on filedocumented in this encounter Care Teams Educational Adviser Relationship Specialty Start Date End Date Tessy Francois DO [address] [place] [address] PCP - General 11/17/15 documented as of this encounter
--- OUTSIDE RECORDS SUMMARY | 2025-01-26 13:41 | XMS_ITS | Patient Health Summary ---
Author Organization [facility] [employer] Address [address] [facility] [place] [address] Care Team Providers Care Sustainability Officer Name Role Phone Dillan Woody MD Primary Care Provider [phone] Note from [facility],non-owned Affiliates and Associated Physician Practices is amultiple site organization consisting of ambulatory clinics and hospital sitesin [place], [place], [place] and [place]. This disclosure is being madepursuant to the Care Everywhere program and may not contain all information available regarding this patient. Last updated 18.[facility] Allergies * Ciprofloxacin(Rash at infusion site immediately [...] daily. * Cyanocobalamin (NASCOBAL) 500 MCG/0.1ML SOLN Heber 1 Squirt into the nose every 7 [...] 36.3 C (97.3 F) 01/07/2011 8:00 AM PROCESS CONTROL ENGINEER Respiratory Rate 18 01/07/2011 8:00 AM PROCESS CONTROL ENGINEER Oxygen Saturation 100% 01/05/2011 8:00 PM PROCESS CONTROL ENGINEER Inhaled Oxygen Concentration - - Weight 73.9 [...] ICD9 [facility] ACCOUNT BILL Comment:V72.31 ; Routine director of hotel operations ecological examination Performed by [facility] ACCOUNT BILL [...] Thin Prep Vial Resulting Agency Comment [facility] [address] [id number] Rock Bullock MD LAB - PATHOLOGY/CYTO LOGY ORDERABLES [facility] ACCOUNT BILL * MAMMO DIAG DIRECT DIGITAL IMAGE UNIL LEFT (08/13/2011) Anatomical Region Laterality Modality Left Other Rock Bullock MD MAMMO ORDERABLES * MAMMOGRAPHY ORDER (07/17/2011) Anatomical Region Laterality Modality Other Rock Bullock MD MAMMO ORDERABLES * (ABNORMAL) CBC W AUTO DIFFERENTIAL (01/06/2011 4:05 AM PROCESS CONTROL ENGINEER) WBC 10.0 4.5 - 11.0 1000/mm3 [facility] RBC 2.74(L) 4.2 - 5.4 10X6 [facility] Hemoglobin 10.1(L) 12.0 - 16.0 gm/dl [facility] Hematocrit 29.9(L) 36.0 - 48.0 % [facility] MCV 109.1(H) 80.0 - 99.0 fl [facility] MCH 36.9(H) 25.0 - 31.0 pg [facility] MCHC 33.8 32.0 - 36.0 gm/dl [facility] RDW 14.1 11.5 - 14.5 % [facility] Platelet Count 205 130.0 - 400.0 1000/mm3 [facility] Granulocytes % 78.9(H) 40.0 - 70.0 % [facility] Lymphocytes % 9.8(L) 22.0 - 40.0 % [facility] Monocytes % 10.8(H) 2.0 - 10.0 % [facility] Eosinophils % 0.2 0.0 - 6.0 % [facility] Basophils % 0.3 0.0 - 3.0 % [facility] Granulocytes Absolute 7.92(H) 1.8 - 7.7 [facility] Lymphocytes Absolute 0.98(L) 1.0 - 5.4 [facility] Monocytes Absolute 1.08 0.1 - 1.1 [facility] Eosinophils Absolute 0.02 0.0 - 0.7 [facility] Basophils Absolute 0.03 0.0 - 0.2 [facility] Comment Manual Diff Not Indicated [facility] BLOOD SPECIMEN / Unknown 01/06/2011 4:05 AM PROCESS CONTROL ENGINEER 01/06/2011 4:33 AM PROCESS CONTROL ENGINEER Rock Bullock MD LAB - HEMATOLOGY ORD ERABLES [facility] [address] [place] [address] * XR ABDOMEN 1 VW (01/05/2011 9:58 AM PROCESS CONTROL ENGINEER) Anatomical Region Laterality Modality Abdomen Radiographic Kavya ging 01/05/2011 10:1 4 AM PROCESS CONTROL ENGINEER Impressions 01/05/2011 10:14 AM PROCESS CONTROL ENGINEER Normal KUB Narrative 01/05/2011 10:14 AM PROCESS CONTROL ENGINEER Abdomen KUB Indication: Evaluate for retained surgical [...] GROSS + MICRO EXAM (01/05/2011 9:06 AM PROCESS CONTROL ENGINEER) [facility] Surgeon Dr. Bullock [facility] Grossed By ANANTH VELA [facility] Gross Report [facility] Comment: SURGEON: Dr. Bullock COPY [...] up to about 0.7 cm in diameter. Gear Finisher sections of the specimen are submitted as follows: A-B. Anterior and posterior cervix. C-D. Anterior and posterior endomyometrium and serosa. E-H. Possible myomas with largest myoma in G and H. I-J. Left and right ovaries and tubes. LW/angie Microscopic Examination [facility] Comment: MICROSCOPIC: The section of [...] The fallopian tubes are normal. BYRON/yoel Diagnosis [facility] Comment: DIAGNOSIS: 1. Uterus, total abdominal hysterectomy with bilateral salpingo- oophorectomy: Cervix: -- No pathologic diagnosis Endometrium: -- Weakly proliferative pattern Myometrium: -- Leiomyomata -- Adenomyosis Ovary, left: -- Follicular cyst Ovary, right: -- Hemorrhagic corpus luteum Fallopian tubes, bilateral: -- No pathologic diagnosis BYRON/yoel Released by Prema BENITEZ [facility] CPT Code 17179 [facility] HYSTERECTOMY AND BILATERAL SALPINGO-OOPHORECTOM Y SPECIMEN / Unknown 01/05/2011 9:06 AM PROCESS CONTROL ENGINEER 01/05/2011 9:06 AM PROCESS CONTROL ENGINEER Rock Bullock MD LAB - PATHOLOGY/CYTO LOGY ORDERABLES Performing Organization Address [facility] Co de Phone Number [facility] [address] [place] [address] * HCG URINE QUALITATIVE - POINT OF CARE (01/05/2011 6:15 AM PROCESS CONTROL ENGINEER) HCG Qual Urine neg Negative [facility] POCT TEST[facility] QC Verified yes Yes [facility] POC T TESTING Urine specimen (specimen) URINE / Unknown 01/05/2011 6:15 AM PROCESS CONTROL ENGINEER Paul Stevenson MD LAB - POINT OF CARE ORDERABLES Performing Organization Address [facility] Co de Phone Number [facility] [address] [place] [address] * HGB HCT PANEL (01/05/2011 6:10 AM PROCESS CONTROL ENGINEER) Hemoglobin 13.2 12.0 - 16.0 gm/dl [facility] Hematocrit 38.0 36.0 - 48.0 % [facility] BLOOD SPECIMEN / Unknown 01/05/2011 6:10 AM PROCESS CONTROL ENGINEER 01/05/2011 6:18 AM PROCESS CONTROL ENGINEER Rock Bullock MD LAB - HEMATOLOGY ORD ERABLES Performing Organization Address [facility] de Phone Number [facility] [address] [place] [address] * US PELVIS WITH TRANSVAG NON OB (12/26/2010 8:19 AM PROCESS CONTROL ENGINEER) Anatomical Region Laterality Modality Pelvis Ultrasound 12/26/2010 10:1 6 AM PROCESS CONTROL ENGINEER Impressions 12/26/2010 10:31 AM PROCESS CONTROL ENGINEER The uterus is grossly enlarged, lobulated in contour, and heterogeneous in echotexture, consistent with the presence of multiple myomata. The ovaries are sonographically unremarkable. Narrative 12/26/2010 10:31 AM PROCESS CONTROL ENGINEER ULTRASOUND PELVIS - TRANSABDOMINAL/TRANSVAGINAL WITH DOPPLER Indication: [...] unremarkable. Rock Bullock MD ORDERABLES Care Teams Sustainability Officer Relationship Specialty Start Date End Date Dillan Woody MD PCP - General Internal Medicine 02/26/12
--- OUTSIDE RECORDS SUMMARY | 2025-01-26 13:41 | XMS_ITS | Encounter Summary ---
Author Organization [employer] Address [address] [place] [address] Care Team Providers Care Bell Clerk Name Role Phone Tessy Francois DO Primary Care Provider [phone] Encounter Details Date Type Department Care Team (Late st Contact Info) Description 08/28/2007 Outpatient Historical [facility] Support Serv. (Adt Cardiology-[facility]) [address] [place] [address] Tristan Lance MD NO ADDRESS ON FILE Social History Tobacco Use Types Packs/Day Years Used Date Smoking Tobacco: Never Assessed Comments Unknown Sex and Gender Information Value Date Recorded Sex Assigned at Not on file Legal Sex Female 5:28 AM CARTOGRAPHY TEACHER Gender Identity Not on file Sexual Orientation Not on file documented as of this encounter Plan of Treatment Not on file documented as of this encounter Visit Diagnoses Not on filedocumented in this encounter Care Teams Bell Clerk Relationship Specialty Start Date End Date Tessy Francois DO [address] [place] [address] PCP - General 11/17/15 documented as of this encounter
--- OUTSIDE RECORDS SUMMARY | 2025-01-26 13:41 | XMS_ITS ---
Author Organization [facility] [employer] [facility] Address [facility] [address] [address] Care Team Providers Care Assistant Foreman Name Role Phone Kirsten Eaton APN Primary Care Provider Unavailab Max Gallardo Unavailable [phone] REASON FOR VISIT Refill Request Social History Sex Assigned At : Social History Observation Description Sex Assigned At Female Encounters Encounter Location Date Provider Diagnosis [place] [address] [address] [facility] [address] [address] 12/24/2024 Max Valdes Plan Of Treatment No Information Progress Notes * ARIADNA LOPEZOB:1960 (64 yo F)Acc No.[id number]:12/24/2024 Patient: Brandyn JONESMansi ZEINA :1960 A ge:64 Y S ex:Female Phone: Address:[address] [place] [address], [place] [address] * true * Date: Generated for Eberi ng/Justyna/eTransmitting on: 0 01/26/2025 01:41 PM CLINIC DIRECTOR
--- OUTSIDE RECORDS SUMMARY | 2025-01-26 13:41 | XMS_ITS | Clinical Summary ---
Author Organization [facility] Address [address] [facility] [place] [address] Care Team Providers Care Cargo Service Supervisor Name Role Phone Dillan Woody MD Primary Care Provider [phone] Source Comments [facility],non-owned Affiliates and Associated Physician Practices is amultiple site organization consisting of ambulatory clinics and hospital sitesin [place], [place], [place] and [place]. This disclosure is being madepursuant to the Care Everywhere program and may not contain all information available regarding this patient. Last updated 18.[facility] Allergies Active Allergy Reactions Criticality Noted Date [...] daily. Active Cyanocobalamin (NASCOBAL) 500 MCG/0.1ML SOLN [place] 1 Squirt into the nose every 7 [...] 36.3 C (97.3 F) 01/07/2011 8:00 AM SHOE STAMPER Respiratory Rate 18 01/07/2011 8:00 AM SHOE STAMPER Oxygen Saturation 100% 01/05/2011 8:00 PM SHOE STAMPER Inhaled Oxygen Concentration - - Weight 73.9 [...] COLON CA SCREENING 1960 LIPID TESTING 1960 HIV SCREENING 1977 HEPATITIS C SCREENING 04/21/1980 PNEUMOCOCCAL VACCINE 50+ (1 of 2 - PCV) 1981 PNEUMOCOCCAL VACCINE (1 of 2 - PCV) 1981 ZOSTER VACCINE (1 of 2) 2012 MAMMOGRAM 07/17/2013 07/17/2011 PAP SMEAR 02/25/2015 02/26/2012, 03/07/2010, 11/23/2008 DTAP/TDAP/TD VACCINES (2 - T d or Tdap) 06/01/2018 06/01/2008 COVID-19 VACCINE ( - 2023-2 5 season) 2024 INFLUENZA VACCINE (#1) 2024 DEPRESSION SCREENING 12/02/2024 Respiratory Syncytial Virus (RSV) Vaccine Pt: or over 60 yrs (1 - 1-dose 75+ series) 2037 HEPATITIS B VACCINE Aged Out No longe [...] ICD9 [facility] ACCOUNT BILL Comment:V72.31 ; Routine medicare coordinator ecological examination Performed by [facility] ACCOUNT [...] CYTYC Thin Prep Vial Resulting Agency Comment [address] [id number] Rock Bullock MD LAB - PATHOLOGY/CYTO LOGY [...] 10:33 PM 01/04/2011 8:00 PM Care Teams Cargo Service Supervisor Relationship Specialty Start Date End Date Dillan Woody MD PCP - General Internal Medicine 02/26/12
--- OUTSIDE RECORDS SUMMARY | 2025-01-26 13:41 | XMS_ITS | Referral Summary ---
Author Organization [facility] [employer] Address [address] [place] [address] Care Team Providers Care Ticket Seller Name Role Phone Dillan Woody MD Primary Care Provider [phone] Source Comments [facility] [employer],non-owned Affiliates and Associated Physician Practices is amultiple site organization consisting of ambulatory clinics and hospital sitesin [place], [place], [place] and [place]. This disclosure is being madepursuant to the Care Everywhere program and may not contain all information available regarding this patient. Last updated 18.[facility] Allergies Active Allergy Reactions Criticality Noted Date [...] daily. Active Cyanocobalamin (NASCOBAL) 500 MCG/0.1ML SOLN [place] 1 Squirt into the nose every 7 [...] 36.3 C (97.3 F) 01/07/2011 8:00 AM FIGURE MODEL Respiratory Rate 18 01/07/2011 8:00 AM FIGURE MODEL Oxygen Saturation 100% 01/05/2011 8:00 PM FIGURE MODEL Inhaled Oxygen Concentration - - Weight 73.9 [...] ICD9 [facility] ACCOUNT BILL Comment:V72.31 ; Routine meeting/event planner ecological examination Performed by [facility] ACCOUNT BILL [...] CYTYC Thin Prep Vial Resulting Agency Comment [facility] [id number] Rock Bullock MD LAB - PATHOLOGY/CYTO LOGY [...] 10:33 PM 01/04/2011 8:00 PM Care Teams Ticket Seller Relationship Specialty Start Date End Date Dillan Woody MD PCP - General Internal Medicine 02/26/12
--- OUTSIDE RECORDS SUMMARY | 2025-01-26 13:41 | XMS_ITS | Encounter Summary ---
Author Organization [facility] Address [address] [place] [address] Care Team Providers Care Electric Installer Name Role Phone Priscila Tessy Britte Primary Care Provider [phone] Encounter Details Date Type Department Care Team (Late st Contact Info) Description 10/26/2008 Outpatient Historical [facility] Mago Sarabia MD Social History Tobacco Use Types Packs/Day Years Used Date Smoking Tobacco: Never Assessed Comments Unknown Sex and Gender Information Value Date Recorded Sex Assigned at Not on file Legal Sex Female 5:28 AM INSPECTOR HAIRSPRING Gender Identity Not on file Sexual Orientation Not on file documented as of this encounter Plan of Treatment Not on file documented as of this encounter Procedures Procedure Name Priority Date/Time Associated Diagnosis Comments STOOL CULTURE (SILVANO,SHIG,CAMPY,ECO1 57) Routine 10/26/2008 7:52 AM INSPECTOR HAIRSPRING C. DIFFICILE DETECTION Routine 10/26/2008 7:52 AM INSPECTOR HAIRSPRING FECAL LEUKOCYTES STAIN Routine 10/26/2008 7:52 AM INSPECTOR HAIRSPRING OVA AND PARASITE SCREEN Routine 10/26/2008 7:52 AM INSPECTOR HAIRSPRING documented in this encounter Results * CLOSTRIDIUM DIFFICILE TOXIN (10/26/2008 7:52 AM INSPECTOR HAIRSPRING) FINAL REPORT NO Clostridium difficile Toxin A or B detected by EIA. A negative result does not rule out C. difficile associated diarrhea or colitis. [facility] Stool specimen (specimen) 10/26/2008 7:52 AM INSPECTOR HAIRSPRING 10/26/2008 8:13 AM INSPECTOR HAIRSPRING us Sujatha Prado MD MICROBIOLOGY - GENERAL ORDERABL ES Final Result Performing Organization Address [facility] de Phone Number INTERFACE SYSTEM Refer to clinic/hospital department [facility] CLIA# [id number] [address] [place] [address] * OVA AND PARASITE SCREEN (10/26/2008 7:52 AM INSPECTOR HAIRSPRING) PRELIMINARY REPORT Pending [facility] FINAL REPORT Concentration : No ova or parasites seen. Trichrome: No ova or parasites seen. [facility] Stool specimen (specimen) 10/26/2008 7:52 AM INSPECTOR HAIRSPRING 10/26/2008 8:15 AM INSPECTOR HAIRSPRING Narrative INTERFACE SYSTEM - 11/02/2008 7:09 AM INSPECTOR HAIRSPRING Performed by [employer] [address] Performed by [email or web address] [address] us Sujatha Prado MD MICROBIOLOGY - GENERAL ORDERABL ES Final Result Performing Organization Address [facility] Phone Number INTERFACE SYSTEM Refer to clinic/hospital department [facility] CLIA# [id number] [address] [place] [address] * FECAL LEUKOCYTES STAIN (10/26/2008 7:52 AM INSPECTOR HAIRSPRING) FINAL REPORT Few WBC's seen [facility] Stool specimen (specimen) 10/26/2008 7:52 AM INSPECTOR HAIRSPRING 10/26/2008 8:13 AM INSPECTOR HAIRSPRING us Sujatha Prado MD MICROBIOLOGY - GENERAL ORDERABL ES Final Result Performing Organization Address [facility] de Phone Number INTERFACE SYSTEM Refer to clinic/hospital department [facility] CLIA# [id number] [address] [place] [address] * STOOL CULTURE (SILVANO,SHIG,CAMPY,YRH051) (10/26/2008 7:52 AM INSPECTOR HAIRSPRING) PRELIMINARY REPORT No Salmonella isolated. No Shigella isolated. No Escherichia coli serogroup O157:H7 isolated. [facility] FINAL REPORT No Salmonella isolated. No Shigella isolated. No Escherichia coli serogroup O157:H7 isolated. No Camplylobacter isolated. [facility] Stool specimen (specimen) 10/26/2008 7:52 AM INSPECTOR HAIRSPRING 10/26/2008 8:17 AM INSPECTOR HAIRSPRING us Sujatha Prado MD MICROBIOLOGY - GENERAL ORDERABL ES Final Result INTERFACE SYSTEM Refer to clinic/hospital department [facility] CLIA# [id number] [address] [place] [address] documented in this encounter Visit Diagnoses Not on filedocumented in this encounter Care Teams Electric Installer Relationship Specialty Start Date End Date Tessy Francois DO [address] [place] [address] PCP - General 11/17/15 documented as of this encounter
--- OUTSIDE RECORDS SUMMARY | 2025-01-26 13:41 | XMS_ITS | Patient Health Record ---
Author Organization [facility] [employer] Address [address] [place] [address] Care Team Providers Care Pharmacist Per Diem Name Role Phone Kirsten Eaton APN Primary Care Provider Unavailab Max Gallardo Unavailable [phone] Allergies Allergen (clinical drug ingredient) Drug/Non Drug [...] Problem Status W/U Status Risk Notes Problem 39548614 MAYANK (generalized anxiety disorder) (F41.1) Active confirmed Problem 16255364 Severe episode of recurrent major depressive disorder, without psychotic features (F33.2) Active confirmed Problem 71417840 MDD (major depressive disorder), recurrent episode, moderate (F33.1) Active confirmed Problem 463541455 Marijuana use (F12.90) Active confirmed Problem 688475 Alcohol use (Z78.9) Active confirmed Vital Signs Heart Rate 82 /min 09/17/2024 Blood pressure diastolic 91 mm Hg 09/17/2024 Weight-kg 78.74 kg 09/17/2024 Blood pressure systolic 135 mm Hg 09/17/2024 Weight 173.6 lbs 09/17/2024 Encounters Encounter Location Date Provider Diagnosis [facility], [place] [address] [address] 08/20/2024 Max Club Severe episode of recurrent major depressive disorder, without psychotic features F33.2 ; MAYANK (generalized anxiety disorder) F41.1 ; Marijuana use F12.90 and Alcohol use Z78.9 [facility] [place] [address] [address] 09/17/2024 Max Clubb MAYANK (generalized anxiety disorder) F41.1 ; MDD (major depressive disorder), recurrent episode, moderate F33.1 ; Alcohol use Z78.9 and Marijuana use F12.90 [employer], [place] [address] [address] 10/19/2024 Max Clubb [place] [address] [address] 12/24/2024 Max Club Assessments Encounter Date Diagnosis (ICD Code) Assessment [...] can walk in before if needed. 09/17/2024 Other patient is taking allergy shots [...] to primary care provider for ongoing management. 10/19/2024 Other Plan Of Treatment Pending Test Test Name Order Date UDT 08/20/2024 Insurance Providers Payer Name Payer Address Payer Phone Subscriber Number Group Number Insured Name Patient Relationship to Insured Coverage Start Date Coverage End Date [employer] [place] [address] [id number] ZEINA GOSS Self - patient is the [...]
--- OUTSIDE RECORDS SUMMARY | 2025-01-26 13:41 | XMS_ITS | Patient Health Record ---
Author Organization [employer] Address [address] [place] [address] Care Team Providers Care Bill Distributor Name Role Phone Tessy Tejada DO Primary [...] Problem Status W/U Status Risk Notes Problem 169372847 Nausea (R11.0) Active confirmed Problem 71248506 Diarrhea (R19.7) Active confirmed Problem 777833062 Weight loss (R63.4) Active confirmed Problem 505985143 Gastroesophageal reflux disease, esophagitis presence not specified (K21.9) Active confirmed Problem 241512207 Bloating (R14.0) Active confirmed Problem 46268807 Abdominal crampi ng (R10.9) Active confirmed Problem 70401330 Crohns disease o f both small and large intestine without complication (K50.80) Active confirmed Problem 929038396 Mild acid reflux (K21.9) Active confirmed Problem 10959811 Joint pain (M25.50) Active confirmed Problem 20412403 Crohn disease (K50.90) Active confirmed Diagnosed around [...] Insured Coverage Start Date Coverage End Date [facility] Choice/ choice Plus E2 [address] [place] [address] [id number] Spike Cole Spouse - patient is the spouse of the insured Medical (General) History Medical History History ICD Code Crohn's disease Kidney problems Colon polyps Surgical History Surgery Date(Month/Year) Colonoscopy 01/2016 section Breast augmentation Hysterectomy Foot Hand Knee Shoulder Hospitalization History Reason Date(Month/Year) Clostridium difficile Kidney infection
--- OUTSIDE RECORDS SUMMARY | 2025-01-26 13:41 | XMS_ITS | Encounter Summary ---
Author Organization [facility] Address [address] [place] [address] Care Team Providers Care Gauge And Weigh Machine Operator Name Role Phone Tessy Francois DO Primary Care Provider [phone] Encounter Details Date Type Department Care Team (Late st Contact Info) Description 08/28/2007 Outpatient Historical [facility] Supp Svcs Blood Flow [address] [place] [address] Riaz Alvarado MD NO ADDRESS ON FILE Social History Tobacco Use Types Packs/Day Years Used Date Smoking Tobacco: Never Assessed Comments Unknown Sex and Gender Information Value Date Recorded Sex Assigned at Not on file Legal Sex Female 5:28 AM STAVE MACHINE TENDER Gender Identity Not on file Sexual Orientation Not on file documented as of this encounter Plan of Treatment Not on file documented as of this encounter Visit Diagnoses Not on filedocumented in this encounter Care Teams Gauge And Weigh Machine Operator Relationship Specialty Start Date End Date Tessy Francois DO [address] [place] [address] PCP - General 11/17/15 documented as of this encounter
--- OUTSIDE RECORDS SUMMARY | 2025-01-26 13:41 | XMS_ITS ---
Author Organization [facility] Address [address] [place] [address] Care Team Providers Care Job Service Consultant Name Role Phone Kirsten Eaton APN Primary Care Provider Unavailab Max Gallardo Unavailable [phone] Allergies Allergen (clinical drug ingredient) Drug/Non Drug [...] Problem Status W/U Status Risk Notes Problem 65506047 MDD (major depressive disorder), recurrent episode, moderate (F33.1) Active confirmed Vital Signs Blood pressure systolic 135 mm Hg 09/17/20 24 Blood pressure diastolic 91 mm Hg 024 Heart Rate 82 /min 09/17/2024 Weight 173.6 lbs 09/17/2024 Weight-kg 78.74 kg 09/17/2024 Encounters Encounter Location Date Provider Diagnosis [employer], [place] [address] [address] 09/17/2024 Max Clubb MAYANK (generalized anxiety disorder) [...] Notes * ARIADNA COLEOB:1960 (64 yo F)Acc No.[id number]:09/17/2024 Patient: Brandyn ZEINA OLIVARES Provider: ALISON Lund :1960 A ge:64 Y S ex:Female Date:09/17/2024 Phone: Address:[address] [place] [address], [facility] Pcp:Kirsten A Yakel MASTER OCEAN Subjective: * Chief Complaints: * R eports [...] provided at first assessment at [facility]. Do you drink alcohol?: Yes, [...] M 1357 Pt w/red suic idea 120 [id number] VISIT COMPLEXITY INHERENT TO ONGOING CARE RELATED TO A PATIENT'S SINGLE, SERIOUS CONDITION OR A COMPLEX CONDITION * Preventive Medicine: Counseling: B P Management: F IRST HYPERTENSIVE BP READING FOLLOW-UP PLAN: _ ___, R EFERRAL TO ALTERNATIVE / PRIMARY CARE PROVIDER: Juan albaerral to general practitioner ____. * Follow Up: 1 12/19/2023 * Billing Information: * Visit Code: [id number] OFFICE OUTPATIENT VISIT 25 MINUTES DETAILED HISTORY [...] Date: Generated for Fly ramirez/Justyna/Demarco on: 0 01/26/2025 01:41 PM ROCK PICKER History and Physical Notes * HPI (History [...]
--- OUTSIDE RECORDS SUMMARY | 2025-01-26 13:41 | XMS_ITS | Encounter Summary ---
Author Organization [facility] Address [address] [place] [address] Care Team Providers Care Cash Applications Analyst Name Role Phone FrancoisTessy verduzco Primary Care Provider [phone] Encounter Details Date Type Department Care Team (Latest Contact Info) Description 12/06/2008 Outpatient Historical [facility] Sjuatha Ledesma MD [address] [place] [address] Regional Enteritis of Large Intestine (CMS/HCC) Social History Tobacco Use Types Packs/Day Years Used Date Smoking Tobacco: Never Assessed Comments Unknown Sex and Gender Information Value Date Recorded Sex Assigned at Not on file Legal Sex Female 5:28 AM CUSTOMER SERVICE ADMINISTRATOR Gender Identity Not on file Sexual Orientation Not on file documented as of this encounter Plan of Treatment Not on file documented as of this encounter Procedures Procedure Name Priority Date/Time Associated Diagnosis Comments MISCELLANEOUS LAB TEST Routine 9 10:17 AM CUSTOMER SERVICE ADMINISTRATOR documented in this encounter Results * MISCELLANEOUS LAB TEST (12/06/2008 10:17 AM CUSTOMER SERVICE ADMINISTRATOR) TEST NAME TPMT [facility] SPECIMEN TYPE Blood [facility] MISCELLANEOUS LAB TEST Name of Test: TPMT Test Result: TPMT*1/TPMT*1 Alleles present are associated with Normal Enzyme Activity Reference Range: TPMT*1/TPMT*1 Test Performed By: [facility] [employer] [place] [facility] Specimen of unknown material (specimen) 12/06/2008 10:17 AM CUSTOMER SERVICE ADMINISTRATOR 12/06/2008 10:34 AM CUSTOMER SERVICE ADMINISTRATOR Narrative INTERFACE SYSTEM - 12/09/2008 8:39 AM CUSTOMER SERVICE ADMINISTRATOR Name of test:tpmt genotype us Sujatha Prado MD CHEMISTRY ORDERABLES Edited INTERFACE SYSTEM Refer to clinic/hospital department [facility] CLIA# [id number] [address] [place] [address] documented in this encounter Visit Diagnoses Diagnosis Regional enteritis of large intestine (CMS/HCC) Regional enteritis of large intestine documented in this encounter Care Teams Cash Applications Analyst Relationship Specialty Start Date End Date Tessy Francois DO [address] [place] [address] PCP - General 11/17/15 documented as of this encounter
--- OUTSIDE RECORDS SUMMARY | 2025-01-26 13:41 | XMS_ITS | Encounter Summary ---
Author Organization [facility] Address [address] [place] [address] Care Team Providers Care Air Cargo Agent Name Role Phone Rock Bullock MD Primary Care Provider [phone] Dillan Woody MD Primary Care Provider [phone] Encounter Details Date Type Department Care Team (Late st Contact Info) Description 12/28/2010 [facility] Outpatient Visit EXTERNAL NON-[facility] DEPT Rock Bullock MD [address] [place] [address] Social History Tobacco Use Types [...] on filedocumented in this encounter Care Teams Air Cargo Agent Relationship Specialty Start Date End Date Rock Bullock MD [address] [place] [address] PCP - General 12/26/10 02/25/12 Dillan Woody MD [address] [place] [address] PCP - General Internal Medicine 02/26/12 documented as of this encounter
--- OUTSIDE RECORDS SUMMARY | 2025-01-26 13:42 | XMS_ITS | Encounter Summary ---
Author Organization [facility] Address [address] [place] [address] Care Team Providers Care Press Clipper Name Role Phone FrancoisTessy verduzco Primary Care Provider [phone] Encounter Details Date Type Department Care Team (Latest Contact Info) Description 10/23/2008 Outpatient Historical [facility] Sujatha Ledesma MD [address] [place] [address] Functional Diarrhea Social History Tobacco Use Types Packs/Day Years Used Date Smoking Tobacco: Never Assessed Comments Unknown Sex and Gender Information Value Date Recorded Sex Assigned at Not on file Legal Sex Female 5:28 AM STRIPPER PRINTED CIRCUIT BOARDS Gender Identity Not on file Sexual Orientation Not on file documented as of this encounter Plan of Treatment Not on file documented as of this encounter Procedures Procedure Name Priority Date/Time Associated Diagnosis Comments C-REACTIVE PROTEIN Routine 10/23/2008 8: 19 AM STRIPPER PRINTED CIRCUIT BOARDS documented in this encounter Results * C-REACTIVE PROTEIN (10/23/2008 8:19 AM STRIPPER PRINTED CIRCUIT BOARDS) CRP 0.2 0.0 - 0.8 mg/dL [facility] Blood specimen (specimen) 10/23/2008 8:19 AM STRIPPER PRINTED CIRCUIT BOARDS 10/23/2008 9:00 AM STRIPPER PRINTED CIRCUIT BOARDS us Sujatha Prado MD CHEMISTRY ORDERABLES Final Resu lt INTERFACE SYSTEM Refer to clinic/hospital department [facility] CLIA# [id number] [address] [place] [address] documented in this encounter Visit Diagnoses Diagnosis Functional diarrhea documented in this encounter Care Teams Press Clipper Relationship Specialty Start Date End Date Tessy Francois DO [address] [place] [address] PCP - General 11/17/15 documented as of this encounter
--- OUTSIDE RECORDS SUMMARY | 2025-01-26 13:42 | XMS_ITS | Encounter Summary ---
Author Organization [employer] Address [address] [place] [address] Care Team Providers Care Hash Slinger Name Role Phone Priscila Tessy Britte Primary Care Provider +1 [phone] Encounter Details Date Type Department Care Team [...] on file Legal Sex Female 5:28 AM PHONE SCREENER Gender Identity Not on file Sexual Orientation Not on file documented as of this encounter Plan of Treatment Not on file documented as of this encounter Procedures Procedure Name Priority Date/Time Associated Diagnosis Comments CT HEAD WO CONTRAST Routine 12/29/2008 4 :15 PM PHONE SCREENER CBC WITH DIFFERENTIAL Stat 12/29/2008 2:48 PM PHONE SCREENER C-REACTIVE PROTEIN Stat 12/29/2008 2: 48 PM PHONE SCREENER COMPREHENSIVE METABOLIC PANEL Stat 12/29/2008 2:48 PM PHONE SCREENER documented in this encounter Results * CT HEAD WO CONTRAST (12/29/2008 4:15 PM PHONE SCREENER) Anatomical Region Laterality Modality Head Other 12/29/2008 4:15 PM PHONE SCREENER Narrative 12/29/2008 4:28 PM [facility] [address] [place], [place] [address] Admit Date: 12/29/2008 ZEINA COLE Sex: F Admit Prov: ER, AUTHORIZED P Date: 1960 Primary Care Prov: NADIA PEÑALOZA CMRN: [id number] [phone] IMAGING SERVICES Ordering Prov: N/A Accession Number: [id number] Interpretation CT head without contrast 12/29/2008.. History: [...] 12/29/2008 16:27 Procedure Note Meg Cheung 12/29/2008 [facility] [address] [place], [place] [address] Admit Date: 12/29/2008 ZEINA COLE Sex: F Admit Prov: ER, AUTHORIZED P Date: 1960 Primary Care Prov: NADIA PEÑALOZA CMRN: [id number] [facility] [phone] IM[facility]ING SERVICES Ordering Prov: N/A Interpretation CT [...] Result * C-REACTIVE PROTEIN (12/29/2008 2:48 PM PHONE SCREENER) CRP 0.3 0.0 - 0.8 mg/dL [facility] Blood specimen (specimen) 12/29/2008 2:48 PM PHONE SCREENER 12/29/2008 3:01 PM PHONE SCREENER Manjit Mendiola MD CHEMISTRY ORDERABLES Final R esult INTERFACE SYSTEM Refer to clinic/hospital department [facility] CLIA# [id number] [address] [place] [address] * (ABNORMAL) COMPREHENSIVE METABOLIC PANEL (12/29/2008 2:48 PM PHONE SCREENER) CREATININE 0.67 0.51 - 0.95 mg/dL [facility] SODIUM 136 135 - 145 mmol/L [facility] ALT 26 0 - 31 U/L [facility] ALKALINE PHOSPHATASE 46 35 - 104 U/L [facility] BILIRUBIN TOTAL 0.4 0.2 - 1.0 mg/dL [facility] CO2 26 22 - 30 mmol/L [facility] TOTAL PROTEIN 6.6 6.3 - 8.6 g/dL [facility] POTASSIUM 4.0 3.5 - 4.9 mmol/L [facility] GLUCOSE 119(H) 65 - 99 mg/dL [facility] AST 22 12 - 32 U/L [facility] BUN 8 6 - 20 mg/dL [facility] CALCIUM 9.3 8.6 - 10.2 mg/dL [facility] CHLORIDE 101 96 - 108 mmol/L [facility] ALBUMIN 4.0 3.4 - 4.8 g/dL [facility] Intranet at: [email or web address] Select: Lab Policies and Procedures Select: Reference Ranges - GFR Blood specimen (specimen) 12/29/2008 2:48 PM PHONE SCREENER 12/29/2008 3:01 PM PHONE SCREENER us Manjit Mendiola MD CHEMISTRY ORDERABLES Edited INTERFACE SYSTEM Refer to clinic/hospital department [facility] CLIA# [id number] [address] [place], [place] [address] * (ABNORMAL) CBC WITH DIFFERENTIAL (12/29/2008 2:48 PM PHONE SCREENER) RDW-STDEV 43.8 37.1 - 48.7 fL [facility] RBC 4.38 3.90 - 4.90 M/uL [facility] MCHC 33.8 31.5 - 35.5 % [facility] MCV 95.2 82.0 - 99.0 fL [facility] PLATELETS 304 140 - 350 K/uL [facility] HEMOGLOBIN 14.1 11.8 - 14.8 g/dL [facility] RDW 12.6 11.5 - 14.5 % [facility] WBC 11.0(H) 4.0 - 9.8 K/uL [facility] MCH 32.2 27.2 - 32.6 pg [facility] MPV 10.2 9.3 - 12.4 fL [facility] HEMATOCRIT 41.7 35.5 - 44.0 % [facility] MONOCYTES 4 3 - 13 % [facility] MONOCYTE ABSOLUTE 0.47 0.10 - 1.30 K/uL [facility] NEUTROPHILS 78(H) 45 - 70 % [facility] NEUTROPHIL ABSOLUTE 8.58(H) 1.90 - 7.00 K/uL [facility] EOSINOPHILS 1 0 - 7 % [facility] EOSINOPHIL ABSOLUTE 0.05 0.00 - 0.70 K/uL [facility] LYMPHOCYTES 17 16 - 45 % [facility] LYMPHOCYTE ABSOLUTE 1.89 0.70 - 4.50 K/uL [facility] BASOPHILS 0 0 - 2 % [facility] BASOPHILS ABSOLUTE 0.03 0.00 - 0.20 K/uL [facility] Blood specimen (specimen) 12/29/2008 2:48 PM PHONE SCREENER 12/29/2008 3:01 PM PHONE SCREENER us Manjit Mendiola MD HEMATOLOGY ORDERABLES Edited INTERFACE SYSTEM Refer to clinic/hospital department [facility] CLIA# [id number] [address] [place] [address] documented in this encounter Visit Diagnoses Not on filedocumented in this encounter Care Teams Hash Slinger Relationship Specialty Start Date End Date Tessy Francois DO [address] [place] [address] PCP - General 11/17/15 documented as of this encounter
--- OUTSIDE RECORDS SUMMARY | 2025-01-26 13:42 | XMS_ITS | Encounter Summary ---
Author Organization [facility] Address [address] [place] [address] Care Team Providers Care Forest Fire Management Officer Name Role Phone PriscilaTessy Primary Care Provider +1 [phone] Encounter Details Date Type Department Care Team (Late Contact Info) Description 10/23/2008 Outpatient Historical HIS [facility] Sarabia, MD Mago Social History Tobacco Use Types Packs/Day Years Used Date Smoking Tobacco: Never Assessed Comments Unknown Sex and Gender Information Value Date Recorded Sex Assigned at Not on file Legal Sex Female 5:28 AM NIGHT NURSE Gender Identity Not on file Sexual Orientation Not on file documented as of this encounter Plan of Treatment Not on file documented as of this encounter Procedures Procedure Name Priority Date/Time Associated Diagnosis Comments GLUCOSE TOLERANCE, 2 HR Routine 10/23/2008 10:30 AM NIGHT NURSE GLUCOSE FARHAT NON-GEST FOR DIABETES 2 HR Routine 10/23/2008 10:30 AM NIGHT NURSE GLUCOSE TOLERANCE, FASTING Routine 10/23/2008 8:18 AM NIGHT NURSE BASIC METABOLIC PANEL Routine 10/23/2008 8:18 AM NIGHT NURSE documented in this encounter Results * GLUCOSE FARHAT NON-GEST FOR DIABETES 2 HR (10/23/2008 10:30 AM NIGHT NURSE) COMMENT See Additional Orderables [facility] Blood specimen (specimen) 10/23/2008 10:30 AM NIGHT NURSE 10/23/2008 10:32 AM NIGHT NURSE Mago Sarabia MD CHEMISTRY ORDERABLES Final R esult Performing Organization Address [facility] de Phone Number INTERFACE SYSTEM Refer to clinic/hospital department [facility] CLIA# [id number] [address] [place] [address] * GLUCOSE TOLERANCE, 2 HR (10/23/2008 10:30 AM NIGHT NURSE) GLUCOSE, 2HR 135 <=139 mg/dL [facility] Blood specimen (specimen) 10/23/2008 10:30 AM NIGHT NURSE 10/23/2008 10:32 AM NIGHT NURSE Mago Sarabia MD CHEMISTRY ORDERABLES [facility] Performing Organization Address [facility] Phone Number INTERFACE SYSTEM Refer to clinic/hospital department [facility] CLIA# [id number] [address] [place] [address] * BASIC METABOLIC PANEL (10/23/2008 8:18 AM NIGHT NURSE) CHLORIDE 103 96 - 108 mmol/L [facility] GLUCOSE 86 65 - 99 mg/dL [facility] SODIUM 141 135 - 145 mmol/L [facility] CALCIUM 8.6 8.6 - 10.2 mg/dL [facility] CO2 28 22 - 30 mmol/L [facility] CREATININE 0.80 0.51 - 0.95 mg/dL [facility] POTASSIUM 3.9 3.5 - 4.9 mmol/L [facility] BUN 11 6 - 20 mg/dL [facility] GFR, >60 >=60 mL/min/1.7 sq meter [facility] GFR >60 >=60 mL/min/1.7 sq meter [facility] Comment: ansiModification of Diet in Renal Disease (MDRD) study formula. Estimated GFR rate interpretative information for both Americans and non- Americans is available on the [facility] Intranet at: [email or web address] Select: Lab Policies and Procedures Select: Reference Ranges - GFR Blood specimen (specimen) 10/23/2008 8:18 AM NIGHT NURSE 10/23/2008 9:00 AM NIGHT NURSE Mago Sarabia MD CHEMISTRY ORDERABLES Edited Performing Organization Address [facility] de Phone Number INTERFACE SYSTEM Refer to clinic/hospital department [facility] CLIA# [id number] [address] [place] [address] * GLUCOSE TOLERANCE, FASTING (10/23/2008 8:18 AM NIGHT NURSE) GTT INTERP, NON-GESTATION AL Based on 75 g dose: Type 1 or 2 Diabetes Mellitus Criteria: Fasting (Baseline): > = 126 mg/dL or 2 hour specimen: > = 200 mg/dL Impaired Glucose Metabolism Criteria: Fasting (Baseline): 100 - 125 mg/dL 2 hour specimen: 140 - 199 mg/dL [facility] GLUCOSE FASTING 86 <=99 mg/dL [facility] Blood specimen (specimen) 10/23/2008 8:18 AM NIGHT NURSE 10/23/2008 9:00 AM NIGHT NURSE us Mago Sarabia MD CHEMISTRY ORDERABLES Final R esult Performing Organization Address [facility] de Phone Number INTERFACE SYSTEM Refer to clinic/hospital department [facility] CLIA# [id number] [address] [place] [address] documented in this encounter Visit Diagnoses Not on filedocumented in this encounter Care Teams Forest Fire Management Officer Relationship Specialty Start Date End Date Tessy Francois DO [address] [place] [address] PCP - General 11/17/15 documented as of this encounter
--- OUTSIDE RECORDS SUMMARY | 2025-01-26 14:08 | XMS_ITS | Clinical Summary ---
Author Organization [facility] Administrative Offices Address [address] [place] [address] Care Team Providers Care Wind Turbine Blade Repair Technician Name Role Phone Tessy Francois DO Primary Care Provider [phone] Allergies Active Allergy Reactions Criticality Noted Date Comments Cephalexin Anaphylaxis High 02/26/2013 Ciprofloxacin Unknown 02/26/2013 Hydrocodone Itching Low 04/01/2014 Unclassified Drug Seizure High 05/16/2017 spirolactine Medications FLUoxetine (PROZAC) 20 mg Oral tablet Take 1 Tab by mouth daily. 30 Tab 11 3 Active azaTHIOprine (IMURAN) 50 mg Oral tablet 3 Active NASCOBAL 500 mcg Both Nostril [place] 3 Active DELZICOL 400 mg Oral CpDR [...] migh t be different from the original. House Wirer - Dr Shashank Rodriguez Problem Noted Date [...] on file Legal Sex Female 5:28 AM ASPHALT PAVING FOREMAN Gender Identity Not on file Sexual Orientation Not on file Occupation Industry Job Start Date Job End Date Not on file Not on file Not on file Not on file Last Filed Vital Signs Vital Sign Reading Time Taken Comments Blood Pressure 136/72 12/30/2017 8:37 AM ASPHALT PAVING FOREMAN Pulse 71 05/16/2017 10:45 AM CDT Temperature - - Respiratory Rate 17 08/11/2013 11:39 AM CDT Oxygen Saturation - - Inhaled Oxygen Concentration - - Weight 73.5 kg (162 lb) 12/30/2017 8:37 AM ASPHALT PAVING FOREMAN Height 171.5 cm (5' 7.5 ) 12/30/2017 8:37 AM ASPHALT PAVING FOREMAN Body Mass Index 25 12/30/2017 8:37 AM ASPHALT PAVING FOREMAN Plan of Treatment Health Maintenance Due Date [...] OR WO CAD Routine 01/01/2018 10:27 AM ASPHALT PAVING FOREMAN Nipple discharge, bloody CERV/VAG CYTO SCREEN PAP RLFX HPV Routine 05/16/2017 11:14 AM CDT Encounter for gynecological examination without abnormal finding POC OCCULT BLOOD 1 CARD Routine 04/01/2014 1:30 PM CDT Routine gynecological examination from Last 3 Months or Most Recently Relevant to Health Maintenance Results * MAMMO DIAGNOSTIC BILATERAL W OR WO CAD (01/01/2018 10:27 AM ASPHALT PAVING FOREMAN) Anatomical Region Laterality Modality Breast Bilateral Mammography 01/01/2018 10:2 7 AM ASPHALT PAVING FOREMAN Impressions 01/01/2018 2:29 PM ASPHALT PAVING FOREMAN IMPRESSION: Bilateral breast implants. Negative and stable bilateral diagnostic mammogram. Mildly dilated ducts and occasional cysts, otherwise negative bilateral subareolar breast sonogram. If the bloody nipple discharge persists, recommend further evaluation with breast MRI. Overall Assessment: BI-RADS Category: 2. Benign finding(s). Dictation Location: [facility] 01/01/2018 2:29 PM ASPHALT PAVING FOREMAN BILATERAL DIAGNOSTIC DIGITAL IMPLANT MAMMOGRAMS WITH CAD [...] BI-RADS Category: 2. Benign finding(s). Dictation Location: [facility] Danny Chan MD MAMMO ORDERABLES Final [...] has been evaluated with computer assisted technology. KENNEL OPERATOR: SEE COMMENT 2016 10:31 AM CDT [facility] Comment: TMK, CT(ASCP) CT screening location: [place] [address] [address] [place] [address] Genital SWAB OF ENDOCERVIX / Unknown Collection / Unknown 05/16/2017 11:14 AM CDT 05/16/2017 8:09 PM CDT Narrative [facility] - 05/23/2017 10:31 AM CDT Performing Organization Information: Site ID: [id number] Name: [facility] Address: [facility] [address] [place] [address] Director: Chad Lemos MD Rock Bullock MD [...] Most Recently Relevant to Health Maintenance [place] [address] [place] [id number] Member Subscriber Plan / Payer (Ef fective 2021-Present) Name:Gina Cole Relation to Subscriber:Spouse Name:SHAWNEE COLE Date of :1963 (Home) (Work) Address: [address] [place] [address] Payer ID:[id number] (NAIC) Type:PPO Address: [facility] [id number] [place] [id number] Care Teams Wind Turbine Blade Repair Technician Relationship Specialty Start Date End Date Tessy Francois DO [address] [place] [address] PCP - General 11/17/15
--- OUTSIDE RECORDS SUMMARY | 2025-01-26 14:08 | XMS_ITS | Encounter Summary ---
Author Organization [facility] Address [address] [place] [address] Care Team Providers Care Ux Manager Name Role Phone Priscila Tessydasha Mchugh Primary Care Provider [phone] [phone] Encounter Details Date Type Department Care Team (Latest Contact Info) Description 05/18/2009 Outpatient Historical HIS [facility] Sujatha Ledesma MD [address] [place] [address] Regional Enteritis of Unspecified Site (CMS/HCC) Social History Tobacco Use Types Packs/Day Years Used Date Smoking Tobacco: Never Assessed Comments Unknown Sex and Gender Information Value Date Recorded Sex Assigned at Not on file Legal Sex Female 5:28 AM PLEATER HAND Gender Identity Not on file Sexual [...] CDT) CALCIUM 9.6 8.6 - 10.2 mg/dL [facility] CHLORIDE 100 96 - 108 mmol/L [facility] ALBUMIN 4.4 3.4 - 4.8 g/dL [facility] CREATININE 0.67 0.51 - 0.95 mg/dL [facility] SODIUM 139 135 - 145 mmol/L [facility] ALT 13 0 - 31 U/L [facility] ALKALINE PHOSPHATASE 48 35 - 104 U/L [facility] BILIRUBIN TOTAL 0.4 0.2 - 1.0 mg/dL [facility] CO2 26 22 - 30 mmol/L [facility] TOTAL PROTEIN 7.2 6.3 - 8.6 g/dL [facility] POTASSIUM 4.0 3.5 - 4.9 mmol/L [facility] GLUCOSE 109(H) 65 - 99 mg/dL [facility] AST 15 12 - 32 U/L [facility] BUN 7 6 - 20 mg/dL [facility] GFR, >60 >=60 mL/min/1. 7 sq meter [facility] GFR >60 >=60 mL/min/1. 7 sq meter [facility] Comment: Modification of Diet in Renal Disease (MDRD) study formula. Estimated GFR rate interpretative information for both Americans and non- Americans is available on the [facility] Intranet at: [email or web address] Select: Lab Policies and Procedures Select: Reference Ranges - GFR 05/18/2009 4:50 PM CDT 05/18/2009 5:14 PM CDT us Sujatha Prado MD CHEMISTRY ORDERABLES Edited INTERFACE SYSTEM Refer to clinic/hospital department [facility] CLIA# [id number] [address] [place] [address] * C-REACTIVE PROTEIN (05/18/2009 4:50 PM CDT) [facility] CRP 0.5 0.0 - 0.8 mg/dL [facility] 05/18/2009 4:50 PM CDT 05/18/2009 5:14 PM CDT us Sujatha Prado MD CHEMISTRY ORDERABLES Final Resu lt INTERFACE SYSTEM Refer to clinic/hospital department [facility] CLIA# [id number] [address] [place] [address] * (ABNORMAL) CBC WITH DIFFERENTIAL (05/18/2009 4:50 PM CDT) [facility] RBC 3.59(L) 3.90 - 4.90 M/uL [facility] MCHC 33.9 31.5 - 35.5 % [facility] MCV 102.8(H) 82.0 - 99.0 fL [facility] PLATELETS 373(H) 140 - 350 K/uL [facility] HEMOGLOBIN 12.5 11.8 - 14.8 g/dL [facility] RDW 14.1 11.5 - 14.5 % [facility] WBC 8.3 4.0 - 9.8 K/uL [facility] MCH 34.8(H) 27.2 - 32.6 pg [facility] MPV 10.1 9.3 - 12.4 fL [facility] HEMATOCRIT 36.9 35.5 - 44.0 % [facility] RDW-STDEV 52.3(H) 37.1 - 48.7 fL [facility] MONOCYTES 7 3 - 13 % [facility] MONOCYTE ABSOLUTE 0.62 0.10 - 1.30 K/uL [facility] NEUTROPHILS 73(H) 45 - 70 % [facility] NEUTROPHIL ABSOLUTE 6.06 1.90 - 7.00 K/uL [facility] EOSINOPHILS 2 0 - 7 % [facility] EOSINOPHIL ABSOLUTE 0.16 0.00 - 0.70 K/uL [facility] LYMPHOCYTES 18 16 - 45 % [facility] LYMPHOCYTE ABSOLUTE 1.46 0.70 - 4.50 K/uL [facility] BASOPHILS 1 0 - 2 % [facility] BASOPHILS ABSOLUTE 0.04 0.00 - 0.20 K/uL [facility] 05/18/2009 4:50 PM CDT 05/18/2009 5:12 PM CDT us Sujatha Prado MD HEMATOLOGY ORDERABLES Edited INTERFACE SYSTEM Refer to clinic/hospital department [facility] CLIA# [id number] [address] [place] [address] documented in this encounter Visit Diagnoses Diagnosis Regional enteritis of unspecified site (CMS/HCC) Regional enteritis of unspecified site documented in this encounter Care Teams Ux Manager Relationship Specialty Start Date End Date Tessy Francois DO [address] [place] [address] PCP - General 11/17/15 documented as of this encounter
--- OUTSIDE RECORDS SUMMARY | 2025-01-26 14:08 | XMS_ITS | Encounter Summary ---
Author Organization [facility] Address [address] [place] [address] Care Team Providers Care Development Scientist Name Role Phone Priscila Tessydasha Mchugh Primary Care Provider [phone] Encounter Details Date Type Department Care Team (Latest Contact Info) Description 01/26/2009 Outpatient Historical HIS [facility] Sujatha Ledesma MD [address] [place] [address] Regional Enteritis of Unspecified Site (CMS/HCC) Social History Tobacco Use Types Packs/Day Years Used Date Smoking Tobacco: Never Assessed Comments Unknown Sex and Gender Information Value Date Recorded Sex Assigned at Not on file Legal Sex Female 5:28 AM BIAS MACHINE OPERATOR HELPER Gender Identity Not on file Sexual Orientation Not on file documented as of this encounter Plan of Treatment Not on file documented as of this encounter Procedures Procedure Name Priority Date/Time Associated Diagnosis Comments CBC WITH DIFFERENTIAL Routine 01/26/2009 4:41 PM BIAS MACHINE OPERATOR HELPER documented in this encounter Results * (ABNORMAL) CBC WITH DIFFERENTIAL (01/26/2009 4:41 PM BIAS MACHINE OPERATOR HELPER) RBC 4.32 3.90 - 4.90 M/uL [facility] MCHC 33.2 31.5 - 35.5 % [facility] MCV 97.0 82.0 - 99.0 fL [facility] PLATELETS 317 140 - 350 K/uL [facility] HEMOGLOBIN 13.9 11.8 - 14.8 g/dL [facility] RDW 13.2 11.5 - 14.5 % [facility] WBC 12.1(H) 4.0 - 9.8 K/uL [facility] MCH 32.2 27.2 - 32.6 pg [facility] MPV 10.5 9.3 - 12.4 fL [facility] HEMATOCRIT 41.9 35.5 - 44.0 % [facility] RDW-STDEV 46.5 37.1 - 48.7 fL [facility] MONOCYTE ABSOLUTE 0.82 0.10 - 1.30 K/uL [facility] LYMPHOCYTES 16 16 - 45 % [facility] NEUTROPHIL ABSOLUTE 9.16(H) 1.90 - 7.00 K/uL [facility] NEUTROPHILS 76(H) 45 - 70 % [facility] EOSINOPHILS 1 0 - 7 % [facility] EOSINOPHIL ABSOLUTE 0.06 0.00 - 0.70 K/uL [facility] LYMPHOCYTE ABSOLUTE 1.96 0.70 - 4.50 K/uL [facility] BASOPHILS 0 0 - 2 % [facility] BASOPHILS ABSOLUTE 0.05 0.00 - 0.20 K/uL [facility] MONOCYTES 7 3 - 13 % [facility] Blood specimen (specimen) 01/26/2009 4:41 PM BIAS MACHINE OPERATOR HELPER 01/26/2009 5:07 PM BIAS MACHINE OPERATOR HELPER us Sujatha Prado MD HEMATOLOGY ORDERABLES Edited INTERFACE SYSTEM Refer to clinic/hospital department [facility] CLIA# [id number] [address] [place] [address] documented in this encounter Visit Diagnoses Diagnosis Regional enteritis of unspecified site (CMS/HCC) Regional enteritis of unspecified site documented in this encounter Care Teams Development Scientist Relationship Specialty Start Date End Date Tessy Francois DO [address] [place] [address] PCP - General 11/17/15 documented as of this encounter
--- OUTSIDE RECORDS SUMMARY | 2025-01-26 14:08 | XMS_ITS | Encounter Summary ---
Author Organization [facility] Address [address] [place] [address] Care Team Providers Care Mind Reader Name Role Phone Priscila Tessydasha Mchugh Primary Care Provider [phone] Encounter Details Date Type Department Care Team (Latest Contact Info) Description 04/18/2009 Outpatient Historical HIS [facility] Sujatha Ledesma MD [address] [place] [address] Regional Enteritis of Unspecified Site (CMS/HCC) Social History Tobacco Use Types Packs/Day Years Used Date Smoking Tobacco: Never Assessed Comments Unknown Sex and Gender Information Value Date Recorded Sex Assigned at Not on file 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 Gender Identity Not on file Sexual [...] CDT) GLUCOSE 151(H) 65 - 99 mg/dL [facility] AST 17 12 - 32 U/L [facility] BUN 11 6 - 20 mg/dL [facility] CALCIUM 9.2 8.6 - 10.2 mg/dL [facility] CHLORIDE 102 96 - 108 mmol/L [facility] ALBUMIN 4.1 3.4 - 4.8 g/dL [facility] CREATININE 0.67 0.51 - 0.95 mg/dL [facility] SODIUM 138 135 - 145 mmol/L [facility] ALT 14 0 - 31 U/L [facility] ALKALINE PHOSPHATASE 61 35 - 104 U/L [facility] BILIRUBIN TOTAL 0.4 0.2 - 1.0 mg/dL [facility] CO2 25 22 - 30 mmol/L [facility] TOTAL PROTEIN 7.0 6.3 - 8.6 g/dL [facility] POTASSIUM 3.6 3.5 - 4.9 mmol/L [facility] GFR, >60 >=60 mL/min/1. 7 sq meter [facility] GFR >60 >=60 mL/min/1. 7 sq meter [facility] Comment: Modification of Diet in Renal Disease (MDRD) study formula. Estimated GFR rate interpretative information for both Americans and non- Americans is available on the [facility] Intranet at: [email or web address] rehabilitation hospitalGeniusCo-op National Housing Cooperativesentara [email or web address] Select: Lab Policies and Procedures Select: Reference Ranges - GFR Blood specimen (specimen) 04/18/2009 1:13 PM CDT 04/18/2009 2:00 PM CDT Sujatha Prado MD CHEMISTRY ORDERABLES Edited INTERFACE SYSTEM Refer to clinic/hospital department [facility] CLIA# [id number] [address] [place] [address] * (ABNORMAL) CBC WITH DIFFERENTIAL (04/18/2009 1:13 PM CDT) MCV 101.5(H) 82.0 - 99.0 fL [facility] PLATELETS 319 140 - 350 K/uL [facility] HEMOGLOBIN 13.3 11.8 - 14.8 g/dL [facility] RDW 14.1 11.5 - 14.5 % [facility] WBC 7.2 4.0 - 9.8 K/uL [facility] MCH 33.9(H) 27.2 - 32.6 pg [facility] MPV 10.3 9.3 - 12.4 fL [facility] HEMATOCRIT 39.8 35.5 - 44.0 % [facility] RDW-STDEV 52.2(H) 37.1 - 48.7 fL [facility] RBC 3.92 3.90 - 4.90 M/uL [facility] MCHC 33.4 31.5 - 35.5 % [facility] EOSINOPHILS 1 0 - 7 % [facility] EOSINOPHIL ABSOLUTE 0.10 0.00 - 0.70 K/uL [facility] LYMPHOCYTES 21 16 - 45 % [facility] LYMPHOCYTE ABSOLUTE 1.50 0.70 - 4.50 K/uL [facility] BASOPHILS 0 0 - 2 % [facility] BASOPHILS ABSOLUTE 0.03 0.00 - 0.20 K/uL [facility] MONOCYTES 5 3 - 13 % [facility] MONOCYTE ABSOLUTE 0.37 0.10 - 1.30 K/uL [facility] NEUTROPHILS 72(H) 45 - 70 % [facility] NEUTROPHIL ABSOLUTE 5.15 1.90 - 7.00 K/uL [facility] Blood specimen (specimen) 04/18/2009 1:13 PM CDT 04/18/2009 1:53 PM CDT us Sujatha Prado MD HEMATOLOGY ORDERABLES Edited INTERFACE SYSTEM Refer to clinic/hospital department [facility] CLIA# [id number] [address] [place] [address] documented in this encounter Visit Diagnoses Diagnosis Regional enteritis of unspecified site (CMS/HCC) Regional enteritis of unspecified site documented in this encounter Care Teams Mind Reader Relationship Specialty Start Date End Date Tessy Francois DO [address] [place] [address] PCP - General 11/17/15 documented as of this encounter
--- OUTSIDE RECORDS SUMMARY | 2025-01-26 14:08 | XMS_ITS | Encounter Summary ---
Author Organization [facility] Address [address] [place] [address] Care Team Providers Care Unarmed Security Officer Name Role Phone Priscila Tessydasha Mchugh Primary Care Provider [phone] Encounter Details Date Type Department Care Team (Latest Contact Info) Description 03/10/2009 Outpatient Historical HIS [facility] Sujatha Ledesma MD [address] [place] [address] Regional Enteritis of Unspecified Site (CMS/HCC) Social History Tobacco Use Types Packs/Day Years Used Date Smoking Tobacco: Never Assessed Comments Unknown Sex and Gender Information Value Date Recorded Sex Assigned at Not on file Legal Sex Female 5:28 AM [employer] Gender Identity Not on file Sexual Orientation [...] CDT) CALCIUM 9.5 8.6 - 10.2 mg/dL [facility] CHLORIDE 101 96 - 108 mmol/L [facility] ALBUMIN 4.5 3.4 - 4.8 g/dL [facility] CREATININE 0.77 0.51 - 0.95 mg/dL [facility] SODIUM 138 135 - 145 mmol/L [facility] ALT 46(H) 0 - 31 U/L [facility] ALKALINE PHOSPHATASE 54 35 - 104 U/L [facility] BILIRUBIN TOTAL 0.3 0.2 - 1.0 mg/dL [facility] CO2 28 22 - 30 mmol/L [facility] TOTAL PROTEIN 7.2 6.3 - 8.6 g/dL [facility] POTASSIUM 3.9 3.5 - 4.9 mmol/L [facility] GLUCOSE 96 65 - 99 mg/dL [facility] AST 33(H) 12 - 32 U/L [facility] BUN 7 6 - 20 mg/dL [facility] GFR, >60 >=60 mL/min/1.7 sq meter [facility] GFR >60 >=60 mL/min/1.7 sq meter [facility] Comment: Modification of Diet in Renal Disease (MDRD) study formula. Estimated GFR rate interpretative information for both Americans and non- Americans is available on the [facility] Intranet at: [email or web address] [email or web address] [email or web address] Select: Lab Policies and Procedures Select: Reference Ranges - GFR Blood specimen (specimen) 03/10/2009 2:33 PM CDT 03/10/2009 3:22 PM CDT Sujatha Prado MD CHEMISTRY ORDERABLES Edited INTERFACE SYSTEM Refer to clinic/hospital department [facility] CLIA# [id number] [address] [place] [address] * (ABNORMAL) CBC WITH DIFFERENTIAL (03/10/2009 2:33 PM CDT) RBC 4.13 3.90 - 4.90 M/uL [facility] MCHC 32.7 31.5 - 35.5 % [facility] MCV 101.5(H) 82.0 - 99.0 fL [facility] PLATELETS 315 140 - 350 K/uL [facility] HEMOGLOBIN 13.7 11.8 - 14.8 g/dL [facility] RDW 14.3 11.5 - 14.5 % [facility] WBC 7.6 4.0 - 9.8 K/uL [facility] MCH 33.2(H) 27.2 - 32.6 pg [facility] MPV 10.5 9.3 - 12.4 fL [facility] HEMATOCRIT 41.9 35.5 - 44.0 % [facility] RDW-STDEV 52.8(H) 37.1 - 48.7 fL [facility] NEUTROPHILS 67 45 - 70 % [facility] NEUTROPHIL ABSOLUTE 5.13 1.90 - 7.00 K/uL [facility] EOSINOPHILS 2 0 - 7 % [facility] EOSINOPHIL ABSOLUTE 0.17 0.00 - 0.70 K/uL [facility] LYMPHOCYTES 21 16 - 45 % [facility] LYMPHOCYTE ABSOLUTE 1.60 0.70 - 4.50 K/uL [facility] BASOPHILS 1 0 - 2 % [facility] BASOPHILS ABSOLUTE 0.05 0.00 - 0.20 K/uL [facility] MONOCYTES 9 3 - 13 % [facility] MONOCYTE ABSOLUTE 0.66 0.10 - 1.30 K/uL [facility] Blood specimen (specimen) 03/10/2009 2:33 PM CDT 03/10/2009 3:24 PM CDT us Sujatha Prado MD HEMATOLOGY ORDERABLES Edited INTERFACE SYSTEM Refer to clinic/hospital department [facility] CLIA# [id number] [address] [place] [address] documented in this encounter Visit Diagnoses Diagnosis Regional enteritis of unspecified site (CMS/HCC) Regional enteritis of unspecified site documented in this encounter Care Teams Unarmed Security Officer Relationship Specialty Start Date End Date Tessy Francois DO [address] [place] [address] PCP - General 11/17/15 documented as of this encounter
--- OUTSIDE RECORDS SUMMARY | 2025-01-26 14:08 | XMS_ITS | Encounter Summary ---
Author Organization [employer] Address 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 400 Result Assessment: Higher Risk of Leucopenia. Higher Likelihood of Response. Metabolite: 6-MMPN Result (Units: pmole/8x10^8 RBC): 2516 Reference Range: <5700 Result Assessment: Lower Risk of Hepatotoxicity. Test Performed By: [employer], [place], [place] [facility] Specimen of unknown material (specimen) 07/13/2009 12:26 PM CDT 07/13/2009 12:36 PM CDT us Sujatha Prado MD CHEMISTRY ORDERABLES Edited Performing Organization Address [facility]/ZIP Co de Phone Number [facility] CLIA# [id number] [address] [place] [address] * VITAMIN B12 (07/13/2009 12:26 PM CDT) Pathologist [facility] VITAMIN B12 [phone] [...] [facility] CLIA# [id number] [address] [place] [address] * TSH (07/13/2009 12:26 PM CDT) [facility] TSH 0.98 0.27 - 4.20 uU/mL [facility] Blood specimen (specimen) 07/13/2009 12:26 PM CDT 07/13/2009 12:36 PM CDT Sujatha Prado MD CHEMISTRY ORDERABLES Final Resu lt [facility] CLIA# [id number] [address] [place] [address] * (ABNORMAL) CBC WITH DIFFERENTIAL (07/13/2009 12:26 PM CDT) [facility] RDW 16.4(H) 11.5 - 14.5 % [...] LAB LYMPHOCYTES 7(L) 16 - 45 % [facility] LYMPHOCYTE ABSOLUTE 0.60(L) 0.70 - [...] LAB NEUTROPHILS 91(H) 45 - 70 % [facility] NEUTROPHIL ABSOLUTE 7.94(H) 1.90 - 7.00 K/uL [facility] EOSINOPHILS 0 0 - 7 % [facility] EOSINOPHIL ABSOLUTE 0.01 0.00 - 0.70 K/uL [facility] Blood specimen (specimen) 07/13/2009 12:26 PM CDT 07/13/2009 12:36 PM CDT Sujatha Prado MD HEMATOLOGY ORDERABLES Edited [facility] CLIA# [id number] [address] [place] [address] documented in this encounter Visit Diagnoses Diagnosis Regional enteritis of unspecified site (CMS/HCC) Regional enteritis of unspecified site documented in this encounter Care Teams Sewer Pipe Layer Helper Relationship Specialty Start Date End Date Tessy Francois DO [address] [place] [address] PCP - General 11/17/15 documented as of this encounter
--- OUTSIDE RECORDS SUMMARY | 2025-01-26 14:09 | XMS_ITS | Patient Health Summary ---
Author Organization [facility] [employer] Address [address] [place] [address] Care Team Providers Care Factory Laborer Name Role Phone Dillan Woody MD Primary Care Provider [phone] Note from [facility],non-owned Affiliates and Associated Physician Practices is amultiple site organization consisting of ambulatory clinics and hospital sitesin [place], [place], [place] and [place]. This disclosure is being madepursuant to the Care Everywhere program and may not contain all information available regarding this patient. Last updated 18.[facility] Allergies * Ciprofloxacin(Rash at infusion site immediately [...] * Cyanocobalamin (NASCOBAL) 500 MCG/0.1ML SOLN [place] 1 Squirt into the nose every 7 [...] 36.3 C (97.3 F) 01/07/2011 8:00 AM SCLEROSCOPE TESTER Respiratory Rate 18 01/07/2011 8:00 AM SCLEROSCOPE TESTER Oxygen Saturation 100% 01/05/2011 8:00 PM SCLEROSCOPE TESTER Inhaled Oxygen Concentration - - Weight 73.9 [...] ICD9 [facility] ACCOUNT BILL Comment:V72.31 ; Routine paving block cutter ecological examination Performed by [facility] ACCOUNT BILL [...] Thin Prep Vial Resulting Agency Comment [facility] [address] [id number] Rock Bullock MD LAB - PATHOLOGY/CYTO LOGY ORDERABLES [facility] ACCOUNT BILL * MAMMO DIAG DIRECT DIGITAL IMAGE UNIL LEFT (08/13/2011) Anatomical Region Laterality Modality Left Other Rock Bullock MD MAMMO ORDERABLES * MAMMOGRAPHY ORDER (07/17/2011) Anatomical Region Laterality Modality Other Rock Bullock MD MAMMO ORDERABLES * (ABNORMAL) CBC W AUTO DIFFERENTIAL (01/06/2011 4:05 AM SCLEROSCOPE TESTER) WBC 10.0 4.5 - 11.0 1000/mm3 [facility] RBC 2.74(L) 4.2 - 5.4 10X6 [facility] Hemoglobin 10.1(L) 12.0 - 16.0 gm/dl [facility] Hematocrit 29.9(L) 36.0 - 48.0 % [facility] MCV 109.1(H) 80.0 - 99.0 fl [facility] MCH 36.9(H) 25.0 - 31.0 pg [facility] MCHC 33.8 32.0 - 36.0 gm/dl [facility] RDW 14.1 11.5 - 14.5 % [facility] Platelet Count 205 130.0 - 400.0 1000/mm3 [facility] Granulocytes % 78.9(H) 40.0 - 70.0 % [facility] Lymphocytes % 9.8(L) 22.0 - 40.0 % [facility] Monocytes % 10.8(H) 2.0 - 10.0 % [facility] Eosinophils % 0.2 0.0 - 6.0 % [facility] Basophils % 0.3 0.0 - 3.0 % [facility] Granulocytes Absolute 7.92(H) 1.8 - 7.7 [facility] Lymphocytes Absolute 0.98(L) 1.0 - 5.4 [facility] Monocytes Absolute 1.08 0.1 - 1.1 [facility] Eosinophils Absolute 0.02 0.0 - 0.7 [facility] Basophils Absolute 0.03 0.0 - 0.2 [facility] Comment Manual Diff Not Indicated [facility] BLOOD SPECIMEN / Unknown 01/06/2011 4:05 AM SCLEROSCOPE TESTER 01/06/2011 4:33 AM SCLEROSCOPE TESTER Rock Bullock MD LAB - HEMATOLOGY ORD ERABLES [facility] [address] [place] [address] * XR ABDOMEN 1 VW (01/05/2011 9:58 AM SCLEROSCOPE TESTER) Anatomical Region Laterality Modality Abdomen Radiographic Kavya ging 01/05/2011 10:1 4 AM SCLEROSCOPE TESTER Impressions 01/05/2011 10:14 AM SCLEROSCOPE TESTER Normal KUB Narrative 01/05/2011 10:14 AM SCLEROSCOPE TESTER Abdomen KUB Indication: Evaluate for retained surgical [...] GROSS + MICRO EXAM (01/05/2011 9:06 AM SCLEROSCOPE TESTER) [facility] Surgeon Dr. Bullock [facility] Grossed By ANANTH VELA [facility] Gross Report [facility] Comment: SURGEON: Dr. Bullock [...] up to about 0.7 cm in diameter. Radiation Officer sections of the specimen are submitted as follows: A-B. Anterior and posterior cervix. C-D. Anterior and posterior endomyometrium and serosa. E-H. Possible myomas with largest myoma in G and H. I-J. Left and right ovaries and tubes. LW/angie Microscopic Examination [facility] Comment: MICROSCOPIC: The section [...] The fallopian tubes are normal. BYRON/yoel Diagnosis [facility] Comment: DIAGNOSIS: 1. Uterus, total abdominal hysterectomy with bilateral salpingo- oophorectomy: Cervix: -- No pathologic diagnosis Endometrium: -- Weakly proliferative pattern Myometrium: -- Leiomyomata -- Adenomyosis Ovary, left: -- Follicular cyst Ovary, right: -- Hemorrhagic corpus luteum Fallopian tubes, bilateral: -- No pathologic diagnosis BYRON/yoel Released by Prema BENITEZ [facility] CPT Code 14318 [facility] HYSTERECTOMY AND BILATERAL SALPINGO-OOPHORECTOM Y SPECIMEN / Unknown 01/05/2011 9:06 AM SCLEROSCOPE TESTER 01/05/2011 9:06 AM SCLEROSCOPE TESTER Rock Bullock MD LAB - PATHOLOGY/CYTO LOGY ORDERABLES Performing Organization Address [facility] Co de Phone Number [facility] [address] [place] [address] * HCG URINE QUALITATIVE - POINT OF CARE (01/05/2011 6:15 AM SCLEROSCOPE TESTER) HCG Qual Urine neg Negative [facility] POCT TESTING QC Verified yes Yes [facility] POC T TESTING Urine specimen (specimen) URINE / Unknown 01/05/2011 6:15 AM SCLEROSCOPE TESTER Paul Stevenson MD LAB - POINT OF CARE ORDERABLES Performing Organization Address [facility] Co de Phone Number [facility] POCT TESTING [address] [place] [address] * HGB HCT PANEL (01/05/2011 6:10 AM SCLEROSCOPE TESTER) Hemoglobin 13.2 12.0 - 16.0 gm/dl [facility] Hematocrit 38.0 36.0 - 48.0 % [facility] BLOOD SPECIMEN / Unknown 01/05/2011 6:10 AM SCLEROSCOPE TESTER 01/05/2011 6:18 AM SCLEROSCOPE TESTER Rock Bullock MD LAB - HEMATOLOGY ORD ERABLES Performing Organization Address [facility] de Phone Number [facility] [address] [place] [address] * US PELVIS WITH TRANSVAG NON OB (12/26/2010 8:19 AM SCLEROSCOPE TESTER) Anatomical Region Laterality Modality Pelvis Ultrasound 12/26/2010 10:1 6 AM SCLEROSCOPE TESTER Impressions 12/26/2010 10:31 AM SCLEROSCOPE TESTER The uterus is grossly enlarged, lobulated in contour, and heterogeneous in echotexture, consistent with the presence of multiple myomata. The ovaries are sonographically unremarkable. Narrative 12/26/2010 10:31 AM SCLEROSCOPE TESTER ULTRASOUND PELVIS - TRANSABDOMINAL/TRANSVAGINAL WITH DOPPLER Indication: [...] unremarkable. Rock Bullock MD ORDERABLES Care Teams Factory Laborer Relationship Specialty Start Date End Date Dillan Woody MD PCP - General Internal Medicine 02/26/12
--- OUTSIDE RECORDS SUMMARY | 2025-01-26 14:09 | XMS_ITS | Encounter Summary ---
Author Organization [facility] Address 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 DIFFICILE DETECTION Routine 10/26/2008 7:52 AM RESPIRATORY CARE PROGRAM DIRECTOR FECAL LEUKOCYTES STAIN Routine 10/26/2008 7:52 AM RESPIRATORY CARE PROGRAM DIRECTOR OVA AND PARASITE SCREEN Routine 10/26/2008 7:52 AM RESPIRATORY CARE PROGRAM DIRECTOR documented in this encounter Results * CLOSTRIDIUM DIFFICILE TOXIN (10/26/2008 7:52 AM RESPIRATORY CARE PROGRAM DIRECTOR) FINAL REPORT NO Clostridium difficile Toxin A or B detected by EIA. A negative result does not rule out C. difficile associated diarrhea or colitis. [facility] Stool specimen (specimen) 10/26/2008 7:52 AM RESPIRATORY CARE PROGRAM DIRECTOR 10/26/2008 8:13 AM RESPIRATORY CARE PROGRAM DIRECTOR us Sujatha Prado MD MICROBIOLOGY - GENERAL ORDERABL ES Final Result Performing Organization Address [facility] [[email or web address]] de Phone Number INTERFACE SYSTEM Refer to clinic/hospital department [facility] CLIA# [id number] [address] [place] [address] * OVA AND PARASITE SCREEN (10/26/2008 7:52 AM RESPIRATORY CARE PROGRAM DIRECTOR) PRELIMINARY REPORT Pending [facility] FINAL REPORT Concentration : No ova or parasites seen. Trichrome: No ova or parasites seen. [facility] Stool specimen (specimen) 10/26/2008 7:52 AM RESPIRATORY CARE PROGRAM DIRECTOR 10/26/2008 8:15 AM RESPIRATORY CARE PROGRAM DIRECTOR Narrative INTERFACE SYSTEM - 11/02/2008 7:09 AM RESPIRATORY CARE PROGRAM DIRECTOR Performed by [employer] [address] [address] Performed by [employer] [address] [address] us Sujatha Prado MD MICROBIOLOGY - GENERAL ORDERABL ES Final Result Performing Organization Address [facility] Phone Number INTERFACE SYSTEM Refer to clinic/hospital department [facility] CLIA# [id number] [address] [place] [address] * FECAL LEUKOCYTES STAIN (10/26/2008 7:52 AM RESPIRATORY CARE PROGRAM DIRECTOR) FINAL REPORT Few WBC's seen [facility] Stool specimen (specimen) 10/26/2008 7:52 AM RESPIRATORY CARE PROGRAM DIRECTOR 10/26/2008 8:13 AM RESPIRATORY CARE PROGRAM DIRECTOR us Sujatha Prado MD MICROBIOLOGY - GENERAL ORDERABL ES Final Result Performing Organization Address City/[facility] [[email or web address]] de Phone Number INTERFACE SYSTEM Refer to clinic/hospital department [facility] CLIA# [id number] [address] [place] [address] * STOOL CULTURE (SILVANO,SHIG,CAMPY,GYR833) (10/26/2008 7:52 AM RESPIRATORY CARE PROGRAM DIRECTOR) PRELIMINARY REPORT No Salmonella isolated. No Shigella isolated. No Escherichia coli serogroup O157:H7 isolated. [facility] FINAL REPORT No Salmonella isolated. No Shigella isolated. No Escherichia coli serogroup O157:H7 isolated. No Camplylobacter isolated. [facility] Stool specimen (specimen) 10/26/2008 7:52 AM RESPIRATORY CARE PROGRAM DIRECTOR 10/26/2008 8:17 AM RESPIRATORY CARE PROGRAM DIRECTOR us Sujatha Prado MD MICROBIOLOGY - GENERAL ORDERABL ES Final Result INTERFACE SYSTEM Refer to clinic/hospital department [facility] CLIA# [id number] [address] [place] [address] documented in this encounter Visit Diagnoses Not on filedocumented in this encounter Care Teams Teleservices Representative Relationship Specialty Start Date End Date Tessy Francois DO [address] [place] [address] PCP - General 11/17/15 documented as of this encounter
--- OUTSIDE RECORDS SUMMARY | 2025-01-26 14:09 | XMS_ITS | Encounter Summary ---
Author Organization [facility] Health Address [address] [place] [address] Care Team Providers Care Paperhanger Contractor Name Role Phone Rock Bullock MD Primary Care Provider [phone] Dillan Woody MD Primary Care Provider [phone] Encounter Details Date Type Department Care Team (Late st Contact Info) Description 12/28/2010 [facility] Outpatient Visit EXTERNAL NON-[facility] DEPT Rock Bullock MD [address] [place] [address] Social History Tobacco Use Types [...] on filedocumented in this encounter Care Teams Paperhanger Contractor Relationship Specialty Start Date End Date Rock Bullock MD [address] [place] [address] PCP - General 12/26/10 02/25/12 Dillan Woody MD [address] [place] [address] PCP - General Internal Medicine 02/26/12 documented as of this encounter
--- OUTSIDE RECORDS SUMMARY | 2025-01-26 14:09 | XMS_ITS | Encounter Summary ---
Author Organization [employer] Address [address] [place] [address] Care Team Providers Care Supervisor Clam Bed Name Role Phone Tessy Francois DO Primary Care Provider [phone] Encounter Details Date Type Department Care Team (Late st Contact Info) Description 08/28/2007 Outpatient Historical [facility] [place] [address] [place] [address] Other Chest Pain (Primary Dx) Social History Tobacco Use Types Packs/Day Years Used Date Smoking Tobacco: Never Assessed Comments Unknown Sex and Gender Information Value Date Recorded Sex Assigned at Not on file Legal Sex Female 5:28 AM MENTAL HEALTH NURSE PRACTITIONER Gender Identity Not on file Sexual Orientation [...] INTERFACE SYSTEM 08/29/2007 6:00 AM CDT us Vija[employer]ell[employer]kumari Ying CHEMISTRY ORDERABLES Edited Performing Organization Address [facility] de Phone Number INTERFACE SYSTEM Refer [...] classifications for lipids are available on the [facility] Intranet at: [email or web address] Select: Lab Policies and Procedures,Current Select: Lipid Panel Interpretation 08/29/2007 6:00 AM CDT us [email or web address] Ying CHEMISTRY ORDERABLES Edited Performing Organization Address [facility] de Phone Number INTERFACE SYSTEM Refer to clinic/hospital department * PHOSPHORUS (08/29/2007 6:00 AM CDT) PHOSPHORUS 4.0 2.5 - 4.5 mg/dL INTERFACE SYSTEM 08/29/2007 6:00 AM CDT us [employer] [employer]i Ying CHEMISTRY ORDERABLES Edited Performing Organization Address City/[facility] Co de Phone Number INTERFACE SYSTEM Refer to clinic/hospital department * MAGNESIUM LEVEL (08/29/2007 6:00 AM CDT) MAGNESIUM 2.2 1.5 - 2.5 mg/dL INTERFACE SYSTEM 08/29/2007 6:00 AM CDT us [employer] [employer] Ying CHEMISTRY ORDERABLES Edited Performing Organization Address City/State/[facility] de Phone Number INTERFACE SYSTEM Refer to clinic/hospital department * TROPONIN (W/REFLEX CKMB/CK) (08/28/2007 11:35 PM CDT) TROPONIN T 0.01 <=0.03 ng/mL INTERFACE SYSTEM TROPONIN T INTERP Negative INTERFACE SYSTEM 08/28/2007 11:3 5 PM CDT Viangel Ying CHEMISTRY ORDERABLES Edited Performing Organization Address [facility] de Phone Number INTERFACE SYSTEM Refer [...] MD URINE ORDERABLES Edited Performing Organization Address [facility] Phone Number INTERFACE SYSTEM Refer to clinic/hospital department * TROPONIN (W/REFLEX CKMB/CK) (08/28/2007 5:13 PM CDT) TROPONIN T <0.01 <=0.03 ng/mL INTERFACE SYSTEM TROPONIN T INTERP Negative INTERFACE SYSTEM 08/28/2007 5:13 PM CDT Haley Ying CHEMISTRY ORDERABLES Edited Performing Organization Address [facility] de Phone Number INTERFACE SYSTEM Refer to clinic/hospital department * TROPONIN (W/REFLEX CKMB/CK) (08/28/2007 2:52 PM CDT) TROPONIN T <0.01 <=0.03 ng/mL INTERFACE SYSTEM TROPONIN T INTERP Negative INTERFACE SYSTEM 08/28/2007 2:52 PM CDT Ajsánchez Ying CHEMISTRY ORDERABLES Edited Performing Organization Address City/[facility] Co de Phone Number INTERFACE SYSTEM [...] MD HEMATOLOGY ORDERABLES Edited Performing Organization Address [facility] de Phone Number INTERFACE SYSTEM Refer [...] [facility] Intranet at: [email or web address] Select: Lab Policies and Procedures [...] Primary documented in this encounter Care Teams Supervisor Clam Bed Relationship Specialty Start Date End Date Tessy Francois DO [address] [place] [address] PCP - General 11/17/15 documented as of this encounter
--- OUTSIDE RECORDS SUMMARY | 2025-01-26 14:09 | XMS_ITS | Encounter Summary ---
Author Organization [employer] Address [address] [place] [address] Care Team Providers Care Certified Massage Therapist Name Role Phone Tessy Francois DO Primary Care Provider [phone] Encounter Details Date Type Department Care Team (Late st Contact Info) Description 08/29/2007 Outpatient Historical [facility] (Adt Cardiology[facility]) [address] [place] [address] Tristan Hyman MD NO ADDRESS ON FILE Social History Tobacco Use Types Packs/Day Years Used Date Smoking Tobacco: Never Assessed Comments Unknown Sex and Gender Information Value Date Recorded Sex Assigned at Not on file Legal Sex Female 5:28 AM KINDERGARTEN TUTOR Gender Identity Not on file Sexual Orientation Not on file documented as of this encounter Plan of Treatment Not on file documented as of this encounter Visit Diagnoses Not on filedocumented in this encounter Care Teams Certified Massage Therapist Relationship Specialty Start Date End Date Tessy Francois DO [address] [place] [address] PCP - General 11/17/15 documented as of this encounter
--- OUTSIDE RECORDS SUMMARY | 2025-01-26 14:09 | XMS_ITS | Encounter Summary ---
Author Organization [facility] Address [address] [place] [address] Care Team Providers Care Microsoft Dynamics Manager Architect Name Role Phone Tessy Francois DO Primary Care Provider [phone] Encounter Details Date Type Department Care Team (Late st Contact Info) Description 08/28/2007 Outpatient Historical [facility] Blood Flow [address] [place] [address] Riaz Alvarado MD NO ADDRESS ON FILE Social History Tobacco Use Types Packs/Day Years Used Date Smoking Tobacco: Never Assessed Comments Unknown Sex and Gender Information Value Date Recorded Sex Assigned at Not on file Legal Sex Female 5:28 AM TRAINMASTER Gender Identity Not on file Sexual Orientation Not on file documented as of this encounter Plan of Treatment Not on file documented as of this encounter Visit Diagnoses Not on filedocumented in this encounter Care Teams Microsoft Dynamics Manager Architect Relationship Specialty Start Date End Date Tessy Francois DO [address] [place] [address] PCP - General 11/17/15 documented as of this encounter
--- OUTSIDE RECORDS SUMMARY | 2025-01-26 14:09 | XMS_ITS | Encounter Summary ---
Author Organization [facility] Address [address] [place] [address] Care Team Providers Care Fire Control Technician Name Role Phone FrancoisTessy verduzco Primary Care Provider [phone] Encounter Details Date Type Department Care Team (Latest Contact Info) Description 12/06/2008 Outpatient Historical [facility] Sujatha Ledesma MD [address] [place] [address] Regional Enteritis of Large Intestine (CMS/HCC) Social History Tobacco Use Types Packs/Day Years Used Date Smoking Tobacco: Never Assessed Comments Unknown Sex and Gender Information Value Date Recorded Sex Assigned at Not on file Legal Sex Female 5:28 AM REFURBISH TECHNICIAN Gender Identity Not on file Sexual Orientation Not on file documented as of this encounter Plan of Treatment Not on file documented as of this encounter Procedures Procedure Name Priority Date/Time Associated Diagnosis Comments MISCELLANEOUS LAB TEST Routine 9 10:17 AM REFURBISH TECHNICIAN documented in this encounter Results * MISCELLANEOUS LAB TEST (12/06/2008 10:17 AM REFURBISH TECHNICIAN) TEST NAME TPMT PROMETHEUS [facility] SPECIMEN TYPE Blood [facility] MISCELLANEOUS LAB TEST Name of Test: TPMT Test Result: TPMT*1/TPMT*1 Alleles present are associated with Normal Enzyme Activity Reference Range: TPMT*1/TPMT*1 Test Performed By: [employer] [place], [place] [facility] Specimen of unknown material (specimen) 12/06/2008 10:17 AM REFURBISH TECHNICIAN 12/06/2008 10:34 AM REFURBISH TECHNICIAN Narrative INTERFACE SYSTEM - 12/09/2008 8:39 AM REFURBISH TECHNICIAN Name of test:tpmt genotype us Sujatha Prado MD CHEMISTRY ORDERABLES Edited INTERFACE SYSTEM Refer to clinic/hospital department [facility] CLIA# [id number] [address] [place] [address] documented in this encounter Visit Diagnoses Diagnosis Regional enteritis of large intestine (CMS/HCC) Regional enteritis of large intestine documented in this encounter Care Teams Fire Control Technician Relationship Specialty Start Date End Date Tessy Francois DO [address] [place] [address] PCP - General 11/17/15 documented as of this encounter
--- OUTSIDE RECORDS SUMMARY | 2025-01-26 14:09 | XMS_ITS | Encounter Summary ---
Author Organization [email or web address] Address [address] [place] [address] Care Team Providers Care Assembly Machine Set Up Mechanic Name Role Phone Priscila Tessy Britte Primary Care Provider [phone] Encounter Details Date Type Department Care Team (Late st Contact Info) Description 09/24/2008 Outpatient Historical [facility] Nadia Sarabia MD Social History Tobacco Use Types Packs/Day Years Used Date Smoking Tobacco: Never Assessed Comments Unknown Sex and Gender Information Value Date Recorded Sex Assigned at Not on file Legal Sex Female 5:28 AM EDI ANALYST Gender Identity Not on file Sexual [...] AM CDT Narrative 09/28/2008 11:12 AM CDT [facility] [address] [place], [place] [address] Admit Date: 09/24/2008 ZEINA COLE Sex: F Admit Prov: NADIA SARABIA Date: 1960 Primary Care Prov: NADIA SARABIA CMRN: [id number] Room: [facility] SSN: [id number] IMAGING SERVICES Ordering Prov: N/A Accession Number: [id number] Interpretation SMALL BOWEL SERIES, 09/28/2008 Clinical History: Crohn's disease, right lower quadrant abdominal pain, possible jejunal intussusception seen on recent abdominal CT. Findings: A preliminary abdominal hookman radiograph is not remarkable. Following oral administration [...] Procedure Note Tristan Cates MD - 09/28/2008 [facility] [address] [place], [place] [address] Admit Date: 09/24/2008 COLE ZEINA [place] Sex: F Admit Prov: NADIA SARABIA Date: 1960 Primary Care Prov: NADIA SARABIA CMRN: [id number] Room: [facility] SSN: [id number] IMAGING SERVICES Ordering Prov: N/A Interpretation SMALL BOWEL SERIES, 09/28/2008 Clinical History: Crohn's disease, right lower quadrant abdominalpain, possible jejunal intussusception seen on recent abdominal CT. Findings: A preliminary abdominal hookman radiograph is notremarkable. Following oral administration of [...] ALKALINE PHOSPHATASE 66 35 - 104 U/L [facility] ALT 14 0 - 31 U/L [facility] CHLORIDE 98 96 - 108 mmol/L [facility] AST 15 12 - 32 U/L [facility] BUN 7 6 - 20 mg/dL [facility] TOTAL PROTEIN 6.5 6.3 - 8.6 g/dL [facility] BILIRUBIN TOTAL 0.3 0.2 - 1.0 mg/dL [facility] CREATININE 0.76 0.51 - 0.95 mg/dL [facility] CO2 27 22 - 30 mmol/L [facility] ALBUMIN 3.7 3.4 - 4.8 g/dL [facility] SODIUM 132(L) 135 - 145 mmol/L [facility] CALCIUM 8.8 8.6 - 10.2 mg/dL [facility] GLUCOSE 123(H) 65 - 99 mg/dL [facility] POTASSIUM 3.2(L) 3.5 - 4.9 mmol/L [facility] GFR, >60 >=60 mL/min/1. 7 sq meter [facility] GFR >60 >=60 mL/min/1. 7 sq meter [facility] Comment: Modification of Diet in Renal Disease (MDRD) study formula. Estimated GFR rate interpretative information for both Americans and non- Americans is available on the [facility] Intranet at: [email or web address] Select: Lab Policies and Procedures Select: Reference Ranges - GFR Blood specimen (specimen) 09/24/2008 2:27 PM CDT 09/24/2008 2:33 PM CDT Nadia Sarabia MD CHEMISTRY ORDERABLES Edited INTERFACE SYSTEM Refer to clinic/hospital department [facility] CLIA# [id number] [address] [facility] [address] [address] * (ABNORMAL) CBC WITH DIFFERENTIAL (09/24/2008 2:27 PM CDT) WBC 8.0 4.0 - 9.8 K/uL [facility] MCH 32.1 27.2 - 32.6 pg [facility] MPV 10.2 9.3 - 12.4 fL [facility] HEMATOCRIT 38.8 35.5 - 44.0 % [facility] RDW-STDEV 43.3 37.1 - 48.7 fL [facility] RBC 4.02 3.90 - 4.90 M/uL [facility] MCHC 33.2 31.5 - 35.5 % [facility] MCV 96.5 82.0 - 99.0 fL [facility] PLATELETS 312 140 - 350 K/uL [facility] HEMOGLOBIN 12.9 11.8 - 14.8 g/dL [facility] RDW 12.3 11.5 - 14.5 % [facility] MONOCYTES 9 3 - 13 % [facility] MONOCYTE ABSOLUTE 0.75 0.10 - 1.30 K/uL [facility] NEUTROPHILS 71(H) 45 - 70 % [facility] NEUTROPHIL ABSOLUTE 5.70 1.90 - 7.00 K/uL [facility] EOSINOPHILS 3 0 - 7 % [facility] EOSINOPHIL ABSOLUTE 0.20 0.00 - 0.70 K/uL [facility] LYMPHOCYTES 16 16 - 45 % [facility] LYMPHOCYTE ABSOLUTE 1.30 0.70 - 4.50 K/uL [facility] BASOPHILS 1 0 - 2 % [facility] BASOPHILS ABSOLUTE 0.05 0.00 - 0.20 K/uL [facility] Blood specimen (specimen) 09/24/2008 2:27 PM CDT 09/24/2008 2:33 PM CDT us Nadia Sarabia MD HEMATOLOGY ORDERABLES Edited INTERFACE SYSTEM Refer to clinic/hospital department [facility] CLIA# [id number] [address] [address] [address] * CT ABDOMEN PELVIS W CONTRAST (09/24/2008 2:12 PM CDT) Anatomical Region Laterality Modality Abdomen Other 09/24/2008 2:12 PM CDT Narrative 09/24/2008 4:46 PM CDT [facility] [address], [place] [address] Admit Date: 09/24/2008 ZEINA COLE Sex: F Admit Prov: NADIA SARABIA Date: 1960 Primary Care Prov: NADIA SARABIA CMRN: [id number] Room: [facility] SSN: [id number] IMAGING SERVICES Ordering Prov: N/A Accession Number: [id number] Interpretation CT SCAN OF THE ABDOMEN AND [...] Procedure Note Olimpia Cavanaugh MD - 09/24/2008 [facility] [address] [place], [place] [address] Admit Date: 09/24/2008 ZEINA COLE Sex: F Admit Prov: NADIA SARABIA Date: 1960 Primary Care Prov: NADIA SARABIA CMRN: [id number] Room: [facility] SSN: [id number] IMAGING SERVICES Ordering Prov: N/A Interpretation CT [...] CREATININE POC 0.8 0.6 - 1.3 mg/dL [facility] GFR, >60 >=60 mL/min/1.7 sq meter [facility] GFR >60 >=60 mL/min/1.7 sq meter [facility] Capillary blood specimen (specimen) 09/24/2008 2:05 PM CDT 09/24/2008 2:05 PM CDT us Nadia Sarabia MD POINT OF CARE TESTING Edited INTERFACE SYSTEM Refer to clinic/hospital department [facility] CLIA# [id number] [address] [place] [address] documented in this encounter Visit Diagnoses Not on filedocumented in this encounter Care Teams Assembly Machine Set Up Mechanic Relationship Specialty Start Date End Date Tessy Francosi DO [address] [place] [address] PCP - General 11/17/15 documented as of this encounter
--- OUTSIDE RECORDS SUMMARY | 2025-01-26 14:09 | XMS_ITS | Encounter Summary ---
Author Organization [facility] Address [address] [place] [address] Care Team Providers Care Enrollment Advisor Name Role Phone PriscilaTessy Primary Care Provider [phone] Encounter Details Date Type Department Care Team (Late Contact Info) Description 10/23/2008 Outpatient Historical HIS [facility] Sarabia, MD Mago Social History Tobacco Use Types Packs/Day Years Used Date Smoking Tobacco: Never Assessed Comments Unknown Sex and Gender Information Value Date Recorded Sex Assigned at Not on file Legal Sex Female 5:28 AM EVENT MANAGEMENT CONSULTANT Gender Identity Not on file Sexual Orientation Not on file documented as of this encounter Plan of Treatment Not on file documented as of this encounter Procedures Procedure Name Priority Date/Time Associated Diagnosis Comments GLUCOSE TOLERANCE, 2 HR Routine 10/23/2008 10:30 AM EVENT MANAGEMENT CONSULTANT GLUCOSE FARHAT NON-GEST FOR DIABETES 2 HR Routine 10/23/2008 10:30 AM EVENT MANAGEMENT CONSULTANT GLUCOSE TOLERANCE, FASTING Routine 10/23/2008 8:18 AM EVENT MANAGEMENT CONSULTANT BASIC METABOLIC PANEL Routine 10/23/2008 8:18 AM EVENT MANAGEMENT CONSULTANT documented in this encounter Results * GLUCOSE FARHAT NON-GEST FOR DIABETES 2 HR (10/23/2008 10:30 AM EVENT MANAGEMENT CONSULTANT) COMMENT See Additional Orderables [facility] Blood specimen (specimen) 10/23/2008 10:30 AM EVENT MANAGEMENT CONSULTANT 10/23/2008 10:32 AM EVENT MANAGEMENT CONSULTANT Mago Sarabia MD CHEMISTRY ORDERABLES Final R esult Performing Organization Address [facility] de Phone Number INTERFACE SYSTEM Refer to clinic/hospital department [facility] CLIA# [id number] [address] [place] [address] * GLUCOSE TOLERANCE, 2 HR (10/23/2008 10:30 AM EVENT MANAGEMENT CONSULTANT) GLUCOSE, 2HR 135 <=139 mg/dL [facility] Blood specimen (specimen) 10/23/2008 10:30 AM EVENT MANAGEMENT CONSULTANT 10/23/2008 10:32 AM EVENT MANAGEMENT CONSULTANT Mago Sarabia MD CHEMISTRY ORDERABLES [facility] Performing Organization Address [facility] Phone Number INTERFACE SYSTEM Refer to clinic/hospital department [facility] CLIA# [id number] [address] [place] [address] [address] * BASIC METABOLIC PANEL (10/23/2008 8:18 AM EVENT MANAGEMENT CONSULTANT) CHLORIDE 103 96 - 108 mmol/L [facility] [...] non- Americans is available on the [facility] Intranet at: [email or web address] Select: Lab Policies and Procedures Select: Reference Ranges - GFR Blood specimen (specimen) 10/23/2008 8:18 AM EVENT MANAGEMENT CONSULTANT 10/23/2008 9:00 AM EVENT MANAGEMENT CONSULTANT Mago Sarabia MD CHEMISTRY ORDERABLES Edited Performing Organization Address [facility] de Phone Number INTERFACE SYSTEM Refer to clinic/hospital department [facility] CLIA# [id number] [address] [place] [address] * GLUCOSE TOLERANCE, FASTING (10/23/2008 8:18 AM EVENT MANAGEMENT CONSULTANT) GTT INTERP, NON-GESTATION AL Based on [...] LAB Blood specimen (specimen) 10/23/2008 8:18 AM EVENT MANAGEMENT CONSULTANT 10/23/2008 9:00 AM EVENT MANAGEMENT CONSULTANT us Mago Sarabia MD CHEMISTRY ORDERABLES Final R esult Performing Organization Address [facility] de Phone Number INTERFACE SYSTEM Refer to clinic/hospital department [facility] CLIA# [id number] [address] [place] [address] documented in this encounter Visit Diagnoses Not on filedocumented in this encounter Care Teams Enrollment Advisor Relationship Specialty Start Date End Date Tessy Francois DO [address] [place] [address] PCP - General 11/17/15 documented as of this encounter
--- OUTSIDE RECORDS SUMMARY | 2025-01-26 14:09 | XMS_ITS | Clinical Summary ---
Author Organization [facility] Address [address] [place] [address] Care Team Providers Care Agency Service Coordinator Name Role Phone Dillan Woody MD Primary Care Provider [phone] Source Comments [facility],non-owned Affiliates and Associated Physician Practices is amultiple site organization consisting of ambulatory clinics and hospital sitesin [place], [place], [place] and [place]. This disclosure is being madepursuant to the Care Everywhere program and may not contain all information available regarding this patient. Last updated 18.[facility] Allergies Active Allergy Reactions Criticality Noted Date [...] daily. Active Cyanocobalamin (NASCOBAL) 500 MCG/0.1ML SOLN [place] 1 Squirt into the nose every 7 [...] 36.3 C (97.3 F) 01/07/2011 8:00 AM TOOL AND DIE REPAIR Respiratory Rate 18 01/07/2011 8:00 AM TOOL AND DIE REPAIR Oxygen Saturation 100% 01/05/2011 8:00 PM TOOL AND DIE REPAIR Inhaled Oxygen Concentration - - Weight 73.9 [...] ICD9 [facility] ACCOUNT BILL Comment:V72.31 ; Routine strategic marketing manager ecological examination Performed by [facility] ACCOUNT BILL [...] CYTYC Thin Prep Vial Resulting Agency Comment [address] [phone] Rock Bullock MD LAB - PATHOLOGY/CYTO LOGY [...] 10:33 PM 01/04/2011 8:00 PM Care Teams Agency Service Coordinator Relationship Specialty Start Date End Date Dillan Woody MD PCP - General Internal Medicine 02/26/12
--- OUTSIDE RECORDS SUMMARY | 2025-01-26 14:09 | XMS_ITS | Encounter Summary ---
Author Organization [facility] Address [address] [place] [address] Care Team Providers Care Director Of Learning Name Role Phone FrancoisTessy verduzco Primary Care Provider [phone] Encounter Details Date Type Department Care Team (Latest Contact Info) Description 10/23/2008 Outpatient Historical HIS [facility] Sujatha Ledesma MD [address] [place] [address] Functional Diarrhea Social History Tobacco Use Types Packs/Day Years Used Date Smoking Tobacco: Never Assessed Comments Unknown Sex and Gender Information Value Date Recorded Sex Assigned at Not on file Legal Sex Female 5:28 AM DIRECTORY ASSISTANCE OPERATOR Gender Identity Not on file Sexual Orientation Not on file documented as of this encounter Plan of Treatment Not on file documented as of this encounter Procedures Procedure Name Priority Date/Time Associated Diagnosis Comments C-REACTIVE PROTEIN Routine 10/23/2008 8: 19 AM DIRECTORY ASSISTANCE OPERATOR documented in this encounter Results * C-REACTIVE PROTEIN (10/23/2008 8:19 AM DIRECTORY ASSISTANCE OPERATOR) CRP 0.2 0.0 - 0.8 mg/dL [facility] Blood specimen (specimen) 10/23/2008 8:19 AM DIRECTORY ASSISTANCE OPERATOR 10/23/2008 9:00 AM DIRECTORY ASSISTANCE OPERATOR us Sujatha Prado MD CHEMISTRY ORDERABLES Final Resu lt INTERFACE SYSTEM Refer to clinic/hospital department [facility] CLIA# [id number] [address] [place] [address] documented in this encounter Visit Diagnoses Diagnosis Functional diarrhea documented in this encounter Care Teams Director Of Learning Relationship Specialty Start Date End Date Tessy Francois DO [address] [place] [phone] PCP - General 11/17/15 documented as of this encounter
--- OUTSIDE RECORDS SUMMARY | 2025-01-26 14:09 | XMS_ITS | Referral Summary ---
Author Organization [facility] [facility] Address [address] [place] [address] Care Team Providers Care News Technical Director Name Role Phone Dillan Woody MD Primary Care Provider [phone] Source Comments [facility],non-owned Affiliates and Associated Physician Practices is amultiple site organization consisting of ambulatory clinics and hospital sitesin [place], [place]. This disclosure is being madepursuant to the Care Everywhere program and may not contain all information available regarding this patient. Last updated 18.[facility] Allergies Active Allergy Reactions Criticality Noted Date [...] daily. Active Cyanocobalamin (NASCOBAL) 500 MCG/0.1ML SOLN [place] 1 Squirt into the nose every 7 [...] 36.3 C (97.3 F) 01/07/2011 8:00 AM INSPECTOR PACKAGER Respiratory Rate 18 01/07/2011 8:00 AM INSPECTOR PACKAGER Oxygen Saturation 100% 01/05/2011 8:00 PM INSPECTOR PACKAGER Inhaled Oxygen Concentration - - Weight 73.9 [...] ICD9 [facility] ACCOUNT BILL Comment:V72.31 ; Routine beam builder ecological examination Performed by [facility] ACCOUNT BILL [...] CYTYC Thin Prep Vial Resulting Agency Comment [facility] [phone] Rock Bullock MD LAB - PATHOLOGY/CYTO LOGY [...] 10:33 PM 01/04/2011 8:00 PM Care Teams News Technical Director Relationship Specialty Start Date End Date Dillan Woody MD PCP - General Internal Medicine 02/26/12
--- OUTSIDE RECORDS SUMMARY | 2025-01-26 14:09 | XMS_ITS | Encounter Summary ---
Author Organization [facility] Address [address] [place] [address] Care Team Providers Care Bioassayist Name Role Phone Priscila Tessy Britte Primary Care Provider [phone] Encounter Details Date Type Department Care Team [...] file Legal Sex Female 5: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 BOAT ASSEMBLY SUPERVISOR Gender Identity Not on file Sexual Orientation Not on file documented as of this encounter Plan of Treatment Not on file documented as of this encounter Procedures Procedure Name Priority Date/Time Associated Diagnosis Comments CT HEAD WO CONTRAST Routine 12/29/2008 4 :15 PM ALUMINUM BOAT ASSEMBLY SUPERVISOR CBC WITH DIFFERENTIAL Stat 12/29/2008 2:48 PM ALUMINUM BOAT ASSEMBLY SUPERVISOR C-REACTIVE PROTEIN Stat 12/29/2008 2: 48 PM ALUMINUM BOAT ASSEMBLY SUPERVISOR COMPREHENSIVE METABOLIC PANEL Stat 12/29/2008 2:48 PM ALUMINUM BOAT ASSEMBLY SUPERVISOR documented in this encounter Results * CT HEAD WO CONTRAST (12/29/2008 4:15 PM ALUMINUM BOAT ASSEMBLY SUPERVISOR) Anatomical Region Laterality Modality Head Other 12/29/2008 4:15 PM ALUMINUM BOAT ASSEMBLY SUPERVISOR Narrative 12/29/2008 4:28 PM [facility] [address] [place], [place] [address] Admit Date: 12/29/2008 ZEINA COLE Sex: F Admit Prov: ER, AUTHORIZED P Date: 1960 Primary Care Prov: NADIA PEÑALOZA CMRN: [id number] [id number] Ordering Prov: N/A Accession Number: [id number] Interpretation CT head without contrast 12/29/2008.. History: [...] 16:27 Procedure Note Meg Cheung 12/29/2008 [facility] [address] [place], [place] [address] Admit Date: 12/29/2008 ZEINA COLE Sex: F Admit Prov: ER, AUTHORIZED P Date: 1960 Primary Care Prov: NADIA PEÑALOZA CMRN: [id number] [facility] [id number] IM[facility]ING SERVICES Ordering Prov: N/A Interpretation CT [...] Result * C-REACTIVE PROTEIN (12/29/2008 2:48 PM ALUMINUM BOAT ASSEMBLY SUPERVISOR) CRP 0.3 0.0 - 0.8 mg/dL [facility] Blood specimen (specimen) 12/29/2008 2:48 PM ALUMINUM BOAT ASSEMBLY SUPERVISOR 12/29/2008 3:01 PM ALUMINUM BOAT ASSEMBLY SUPERVISOR Manjit Mendiola MD CHEMISTRY ORDERABLES Final R esult INTERFACE SYSTEM Refer to clinic/hospital department [facility] CLIA# [id number] [address] [place] [address] * (ABNORMAL) COMPREHENSIVE METABOLIC PANEL (12/29/2008 2:48 PM ALUMINUM BOAT ASSEMBLY SUPERVISOR) CREATININE 0.67 0.51 - 0.95 mg/dL [facility] SODIUM 136 135 - 145 mmol/L [facility] ALT 26 0 - 31 U/L [facility] ALKALINE PHOSPHATASE 46 35 - 104 U/L [facility] BILIRUBIN TOTAL 0.4 0.2 - 1.0 mg/dL [facility] CO2 26 22 - 30 mmol/L [facility] TOTAL PROTEIN 6.6 6.3 - 8.6 g/dL [facility] POTASSIUM 4.0 3.5 - 4.9 mmol/L [facility] GLUCOSE 119(H) 65 - 99 mg/dL [facility] AST 22 12 - 32 U/L [facility] BUN 8 6 - 20 mg/dL [facility] CALCIUM 9.3 8.6 - 10.2 mg/dL [facility] CHLORIDE 101 96 - 108 mmol/L [facility] ALBUMIN 4.0 3.4 - 4.8 g/dL [facility] GFR, >60 >=60 mL/min/1. 7 sq meter [facility] GFR >60 >=60 mL/min/1. 7 sq meter [facility] Comment: Modification of Diet in Renal Disease (MDRD) study formula. Estimated GFR rate interpretative information for both Americans and non- Americans is available on the [facility] Intranet at: [email or web address] Select: Lab Policies and Procedures Select: Reference Ranges - GFR Blood specimen (specimen) 12/29/2008 2:48 PM ALUMINUM BOAT ASSEMBLY SUPERVISOR 12/29/2008 3:01 PM ALUMINUM BOAT ASSEMBLY SUPERVISOR us Manjit Mendiola MD CHEMISTRY ORDERABLES Edited INTERFACE SYSTEM Refer to clinic/hospital department [facility] CLIA# [id number] [address] [place], [place] [address] * (ABNORMAL) CBC WITH DIFFERENTIAL (12/29/2008 2:48 PM ALUMINUM BOAT ASSEMBLY SUPERVISOR) RDW-STDEV 43.8 37.1 - 48.7 fL [facility] RBC 4.38 3.90 - 4.90 M/uL [facility] MCHC 33.8 31.5 - 35.5 % [facility] MCV 95.2 82.0 - 99.0 fL [facility] PLATELETS 304 140 - 350 K/uL [facility] HEMOGLOBIN 14.1 11.8 - 14.8 g/dL [facility] RDW 12.6 11.5 - 14.5 % [facility] WBC 11.0(H) 4.0 - 9.8 K/uL [facility] MCH 32.2 27.2 - 32.6 pg [facility] MPV 10.2 9.3 - 12.4 fL [facility] HEMATOCRIT 41.7 35.5 - 44.0 % [facility] MONOCYTES 4 3 - 13 % [facility] MONOCYTE ABSOLUTE 0.47 0.10 - 1.30 K/uL [facility] NEUTROPHILS 78(H) 45 - 70 % [facility] NEUTROPHIL ABSOLUTE 8.58(H) 1.90 - 7.00 K/uL [facility] EOSINOPHILS 1 0 - 7 % [facility] EOSINOPHIL ABSOLUTE 0.05 0.00 - 0.70 K/uL [facility] LYMPHOCYTES 17 16 - 45 % [facility] LYMPHOCYTE ABSOLUTE 1.89 0.70 - 4.50 K/uL [facility] BASOPHILS 0 0 - 2 % [facility] BASOPHILS ABSOLUTE 0.03 0.00 - 0.20 K/uL [facility] Blood specimen (specimen) 12/29/2008 2:48 PM ALUMINUM BOAT ASSEMBLY SUPERVISOR 12/29/2008 3:01 PM ALUMINUM BOAT ASSEMBLY SUPERVISOR us Manjit Mendiola MD HEMATOLOGY ORDERABLES Edited INTERFACE SYSTEM Refer to clinic/hospital department [facility] CLIA# [id number] [address] [place] [address] documented in this encounter Visit Diagnoses Not on filedocumented in this encounter Care Teams Bioassayist Relationship Specialty Start Date End Date Tessy Francois DO [address] [place] [address] PCP - General 11/17/15 documented as of this encounter
--- OUTSIDE RECORDS SUMMARY | 2025-01-26 14:09 | XMS_ITS | Encounter Summary ---
Author Organization [facility] Address [address] Attn: Epic Prelude ADT [place] [address] Care Team Providers Care Regional Operations Director Name Role Phone Tessy Francois DO Primary Care Provider [phone] Encounter Details Date Type Department Care Team (Late st Contact Info) Description 08/27/2007 Outpatient Historical Amari Emmanuel MD NO ADDRESS ON FILE Social History Tobacco Use Types Packs/Day Years Used Date Smoking Tobacco: Never Assessed Comments Unknown Sex and Gender Information Value Date Recorded Sex Assigned at Not on file Legal Sex Female 5:28 AM FOURDRINIER TENDER Gender Identity Not on file Sexual Orientation Not on file documented as of this encounter Plan of Treatment Not on file documented as of this encounter Visit Diagnoses Not on filedocumented in this encounter Care Teams Regional Operations Director Relationship Specialty Start Date End Date Tessy Francois DO [address] [place] [address] PCP - General 11/17/15 documented as of this encounter
--- OUTSIDE RECORDS SUMMARY | 2025-01-26 14:09 | XMS_ITS | Encounter Summary ---
Author Organization [employer] Address [address] [place] [address] Care Team Providers Care Configuration Management Analyst Name Role Phone Tessy Francois DO Primary Care Provider [phone] Encounter Details Date Type Department Care Team (Late st Contact Info) Description 10/07/2008 Outpatient Historical HIS [facility] Madelyn Rae MD [address] [facility] [address] [place] [address] Regional Enteritis of Unspecified Site (CMS/HCC) Social History Tobacco Use Types Packs/Day Years Used Date Smoking Tobacco: Never Assessed Comments Unknown Sex and Gender Information Value Date Recorded Sex Assigned at Not on file Legal Sex Female 5:28 AM CUTTING MACHINE OFFBEARER Gender Identity Not on file Sexual Orientation Not on file documented as of this encounter Plan of Treatment Not on file documented as of this encounter Procedures Procedure Name Priority Date/Time Associated Diagnosis Comments PATHOLOGY Routine 10/07/2008 3:22 PM CUTTING MACHINE OFFBEARER STOOL CULTURE (SILVANO,SHIG,CAMPY,ECO 157) Routine 10/07/2008 3:17 PM CUTTING MACHINE OFFBEARER C. DIFFICILE DETECTION Routine 10/07/2008 3:17 PM CUTTING MACHINE OFFBEARER OVA AND PARASITE SCREEN Routine 10/07/2008 3:17 PM CUTTING MACHINE OFFBEARER POC , URINE Routine 10/07/2008 1:40 PM CUTTING MACHINE OFFBEARER documented in this encounter Results * PATHOLOGY (10/07/2008 3:22 PM CUTTING MACHINE OFFBEARER) FINAL REPORT [facility] [address] [place], [place] [address] Patient: ZEINA COLE : 1960 Procedure Date: 10/07/2008 Accession Date: 10/07/2008 Case No: [id number] Ordering Dr: MADELYN RAE Case types AW, BW, FW, NW and SH are performed by [facility], [place], [place] SURGICAL PATHOLOGY & NON-GYNECOLOGIC CYTOPATHOLOGY REPORT [...] 04:36 pm Microscopic: The slides are labeled [id number], Zeina Cole. Sections of the left colon [...] 09:19 am INTERFACE SYSTEM 10/07/2008 3:22 PM CUTTING MACHINE OFFBEARER us Madelyn Rae MD PATHOLOGY/CYTOLOGY ORDERABLE S Final Result INTERFACE SYSTEM Refer to clinic/hospital department * OVA AND PARASITE SCREEN (10/07/2008 3:17 PM CUTTING MACHINE OFFBEARER) PRELIMINARY REPORT Pending [facility] FINAL REPORT Concentration : No ova or parasites seen. Trichrome: No ova or parasites seen. [facility] 10/07/2008 3:17 PM CUTTING MACHINE OFFBEARER 10/07/2008 4:43 PM CUTTING MACHINE OFFBEARER Narrative INTERFACE SYSTEM - 10/14/2008 10:48 AM CUTTING MACHINE OFFBEARER fax to dr rae [facility] by [facility], [address] [place] [id number] Performed by [facility] [employer] [address] Madelyn Rae MD MICROBIOLOGY - GENERAL ORDER DIVINE Final Result Performing Organization Address [facility] Phone Number INTERFACE SYSTEM Refer to clinic/hospital department [facility] CLIA# [id number] [address] [place] [address] * STOOL CULTURE (SILVANO,SHIG,CAMPY,[id number]) (10/07/2008 3:17 PM CUTTING MACHINE OFFBEARER) PRELIMINARY REPORT No Salmonella isolated. No Shigella isolated. No Escherichia coli serogroup O157:H7 isolated. [facility] FINAL REPORT No Salmonella isolated. No Shigella isolated. No Escherichia coli serogroup O157:H7 isolated. No Camplylobacter isolated. [facility] 10/07/2008 3:17 PM CUTTING MACHINE OFFBEARER 10/07/2008 4:43 PM CUTTING MACHINE OFFBEARER Narrative INTERFACE SYSTEM - 10/10/2008 7:51 AM CUTTING MACHINE OFFBEARER fax to dr rae Madelyn Rae MD MICROBIOLOGY - GENERAL ORDER DIVINE Final Result Performing Organization Address [facility] de Phone Number INTERFACE SYSTEM Refer to clinic/hospital department [facility] CLIA# [id number] [address] [place] [address] * CLOSTRIDIUM DIFFICILE TOXIN (10/07/2008 3:17 PM CUTTING MACHINE OFFBEARER) FINAL REPORT NO Clostridium difficile Toxin A or B detected by EIA. A negative result does not rule out C. difficile associated diarrhea or colitis. [facility] Stool specimen (specimen) 10/07/2008 3:17 PM CUTTING MACHINE OFFBEARER 10/07/2008 4:43 PM CUTTING MACHINE OFFBEARER Narrative INTERFACE SYSTEM - 10/08/2008 3:11 PM CUTTING MACHINE OFFBEARER fax to dr rae Madelyn Rae MD MICROBIOLOGY - GENERAL ORDER DIVINE Final Result Performing Organization Address [facility] de Phone Number INTERFACE SYSTEM Refer to clinic/hospital department [facility] CLIA# [id number] [address] [place] [address] * POC , URINE (10/07/2008 1:40 PM CUTTING MACHINE OFFBEARER) , URINE POC Negative Negative [facility] Urine specimen (specimen) 10/07/2008 1:40 PM CUTTING MACHINE OFFBEARER 10/07/2008 1:40 PM CUTTING MACHINE OFFBEARER Madelyn Rae MD POINT OF CARE TESTING Final Result Performing Organization Address [facility] de Phone Number INTERFACE SYSTEM Refer to clinic/hospital department [facility] CLIA# [id number] [address] [place] [address] documented in this encounter Visit Diagnoses Diagnosis Regional enteritis of unspecified site (CMS/HCC) Regional enteritis of unspecified site documented in this encounter Care Teams Configuration Management Analyst Relationship Specialty Start Date End Date Tessy Francois DO [address] [place] [address] PCP - General 11/17/15 documented as of this encounter
--- OUTSIDE RECORDS SUMMARY | 2025-01-26 14:09 | XMS_ITS | Encounter Summary ---
Author Organization [employer] Address [address] [place] [address] Care Team Providers Care Barrel Roller Name Role Phone Tessy Francois DO Primary Care Provider [phone] Encounter Details Date Type Department Care Team (Late st Contact Info) Description 08/28/2007 Outpatient Historical [facility] [address] [place] [address] Tristan Lance MD NO ADDRESS ON FILE Social History Tobacco Use Types Packs/Day Years Used Date Smoking Tobacco: Never Assessed Comments Unknown Sex and Gender Information Value Date Recorded Sex Assigned at Not on file Legal Sex Female 5:28 AM BARK TANNER Gender Identity Not on file Sexual Orientation Not on file documented as of this encounter Plan of Treatment Not on file documented as of this encounter Visit Diagnoses Not on filedocumented in this encounter Care Teams Barrel Roller Relationship Specialty Start Date End Date Tessy Francois DO [address] [place] [address] PCP - General 11/17/15 documented as of this encounter
== END 2025-01-26 12:33 | disposition left against medical advice (07) ==
PROVIDERS: Emergency Provider Emergency Medicine; PCP Nurse Practitioner
DX: R07.89 Other chest pain (principal)
CPT/HCPCS: 36415; 80053; 83690; 84484; 85025; 85610; 85730; 93005; 99199

== ENCOUNTER 2025-03-26 12:45 | Outpatient (CLI) | payer BC, SELFPAY ==
--- OUTSIDE RECORDS SUMMARY | 2025-03-26 12:49 | XMS_ITS | Encounter Summary ---
Author Organization [facility] Address [address] [place] [address] Care Team Providers Care Geological Manager Name Role Phone Tessy Francois DO Primary Care Provider +1 [phone] Encounter Details Date Type Department Care Team (Late st Contact Info) Description 08/28/2007 Outpatient Historical [facility] Blood Flow [address] [place] [address] Riaz Alvarado MD NO ADDRESS ON FILE Social History Tobacco Use Types Packs/Day Years Used Date Smoking Tobacco: Never Assessed Comments Unknown Sex and Gender Information Value Date Recorded Sex Assigned at Not on file Legal Sex Female 5:28 AM SPECIAL CERTIFICATE DICTATOR Gender Identity Not on file Sexual Orientation Not on file documented as of this encounter Plan of Treatment Not on file documented as of this encounter Visit Diagnoses Not on filedocumented in this encounter Care Teams Geological Manager Relationship Specialty Start Date End Date Tessy Francois DO [address] [place] [address] PCP - General 11/17/15 documented as of this encounter
--- OUTSIDE RECORDS SUMMARY | 2025-03-26 12:49 | XMS_ITS | Encounter Summary ---
Author Organization [facility] Address [address] [place] [address] Care Team Providers Care Animal Care Attendant Name Role Phone Priscila Tessydasha Mchugh Primary Care Provider +1 [phone] Encounter Details Date Type Department Care Team (Latest Contact Info) Description 05/18/2009 Outpatient Historical HIS [facility] Sujatha Ledesma MD [address] [place] [address] Regional Enteritis of Unspecified Site (CMS/HCC) Social History Tobacco Use Types Packs/Day Years Used Date Smoking Tobacco: Never Assessed Comments Unknown Sex and Gender Information Value Date Recorded Sex Assigned at Not on file Legal Sex Female 5: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 POOL INSTALLER Gender Identity Not on file Sexual [...] 10.2 mg/dL [facility] CHLORIDE 100 96 - 108 mmol/L [facility] ALBUMIN 4.4 3.4 - 4.8 g/dL [facility] CREATININE 0.67 0.51 - 0.95 mg/dL [facility] SODIUM 139 135 - 145 mmol/L [facility] ALT 13 0 - 31 U/L [facility] ALKALINE PHOSPHATASE 48 35 - 104 U/L [facility] BILIRUBIN TOTAL 0.4 0.2 - 1.0 mg/dL [facility] CO2 26 22 - 30 mmol/L [facility] TOTAL PROTEIN 7.2 6.3 - 8.6 g/dL [facility] POTASSIUM 4.0 3.5 - 4.9 mmol/L [facility] GLUCOSE 109(H) 65 - 99 mg/dL [facility] AST 15 12 - 32 U/L [facility] BUN 7 6 - 20 mg/dL [facility] GFR, >60 >=60 mL/min/1. 7 sq meter [facility] GFR >60 >=60 mL/min/1. 7 sq meter [facility] Comment: Modification of Diet in Renal Disease (MDRD) study formula. Estimated GFR rate interpretative information for both Americans and non- Americans is available on the [facility] Intranet at: [email or web address] Select: Lab Policies and Procedures Select: Reference Ranges - GFR 05/18/2009 4:50 PM CDT 05/18/2009 5:14 PM CDT us Sujatha Prado MD CHEMISTRY ORDERABLES Edited INTERFACE SYSTEM Refer to clinic/hospital department [facility] CLIA# [id number] [address] [place] [address] * C-REACTIVE PROTEIN (05/18/2009 4:50 PM CDT) [facility] CRP 0.5 0.0 - 0.8 mg/dL [facility] 05/18/2009 4:50 PM CDT 05/18/2009 5:14 PM CDT us Sujatha Prado MD CHEMISTRY ORDERABLES Final Resu lt INTERFACE SYSTEM Refer to clinic/hospital department [facility] CLIA# [id number] [address] [place] [address] * (ABNORMAL) CBC WITH DIFFERENTIAL (05/18/2009 4:50 PM CDT) [facility] RBC 3.59(L) 3.90 - 4.90 M/uL [facility] MCHC 33.9 31.5 - 35.5 % [facility] MCV 102.8(H) 82.0 - 99.0 fL [facility] PLATELETS 373(H) 140 - 350 K/uL [facility] HEMOGLOBIN 12.5 11.8 - 14.8 g/dL [facility] RDW 14.1 11.5 - 14.5 % [facility] WBC 8.3 4.0 - 9.8 K/uL [facility] MCH 34.8(H) 27.2 - 32.6 pg [facility] MPV 10.1 9.3 - 12.4 fL [facility] HEMATOCRIT 36.9 35.5 - 44.0 % [facility] RDW-STDEV 52.3(H) 37.1 - 48.7 fL [facility] MONOCYTES 7 3 - 13 % [facility] MONOCYTE ABSOLUTE 0.62 0.10 - 1.30 K/uL [facility] NEUTROPHILS 73(H) 45 - 70 % [facility] NEUTROPHIL ABSOLUTE 6.06 1.90 - 7.00 K/uL [facility] EOSINOPHILS 2 0 - 7 % [facility] EOSINOPHIL ABSOLUTE 0.16 0.00 - 0.70 K/uL [facility] LYMPHOCYTES 18 16 - 45 % [facility] LYMPHOCYTE ABSOLUTE 1.46 0.70 - 4.50 K/uL [facility] BASOPHILS 1 0 - 2 % [facility] BASOPHILS ABSOLUTE 0.04 0.00 - 0.20 K/uL [facility] 05/18/2009 4:50 PM CDT 05/18/2009 5:12 PM CDT us Sujatha Prado MD HEMATOLOGY ORDERABLES Edited INTERFACE SYSTEM Refer to clinic/hospital department [facility] CLIA# [id number] [address] [place] [address] documented in this encounter Visit Diagnoses Diagnosis Regional enteritis of unspecified site (CMS/HCC) Regional enteritis of unspecified site documented in this encounter Care Teams Animal Care Attendant Relationship Specialty Start Date End Date Tessy Francois DO [address] [place] [address] PCP - General 11/17/15 documented as of this encounter
--- OUTSIDE RECORDS SUMMARY | 2025-03-26 12:49 | XMS_ITS | Encounter Summary ---
Author Organization [facility] Address [address] [place] [address] Care Team Providers Care Roller Cleaner Name Role Phone Priscila Tessydasha Mchugh Primary Care Provider [phone] [phone] Encounter Details Date Type Department Care Team (Latest Contact Info) Description 01/26/2009 Outpatient Historical HIS [facility] Sujatha Ledesma MD [address] [place] [address] Regional Enteritis of Unspecified Site (CMS/HCC) Social History Tobacco Use Types Packs/Day Years Used Date Smoking Tobacco: Never Assessed Comments Unknown Sex and Gender Information Value Date Recorded Sex Assigned at Not on file Legal Sex Female 5:28 AM HOSPITAL EDUCATOR Gender Identity Not on file Sexual Orientation Not on file documented as of this encounter Plan of Treatment Not on file documented as of this encounter Procedures Procedure Name Priority Date/Time Associated Diagnosis Comments CBC WITH DIFFERENTIAL Routine 01/26/2009 4:41 PM HOSPITAL EDUCATOR documented in this encounter Results * (ABNORMAL) CBC WITH DIFFERENTIAL (01/26/2009 4:41 PM HOSPITAL EDUCATOR) RBC 4.32 3.90 - 4.90 M/uL [facility] MCHC 33.2 31.5 - 35.5 % [facility] MCV 97.0 82.0 - 99.0 fL [facility] PLATELETS 317 140 - 350 K/uL [facility] HEMOGLOBIN 13.9 11.8 - 14.8 g/dL [facility] RDW 13.2 11.5 - 14.5 % [facility] WBC 12.1(H) 4.0 - 9.8 K/uL [facility] MCH 32.2 27.2 - 32.6 pg [facility] MPV 10.5 9.3 - 12.4 fL [facility] HEMATOCRIT 41.9 35.5 - 44.0 % [facility] RDW-STDEV 46.5 37.1 - 48.7 fL [facility] MONOCYTE ABSOLUTE 0.82 0.10 - 1.30 K/uL [facility] LYMPHOCYTES 16 16 - 45 % [facility] NEUTROPHIL ABSOLUTE 9.16(H) 1.90 - 7.00 K/uL [facility] NEUTROPHILS 76(H) 45 - 70 % [facility] EOSINOPHILS 1 0 - 7 % [facility] EOSINOPHIL ABSOLUTE 0.06 0.00 - 0.70 K/uL [facility] LYMPHOCYTE ABSOLUTE 1.96 0.70 - 4.50 K/uL [facility] BASOPHILS 0 0 - 2 % [facility] BASOPHILS ABSOLUTE 0.05 0.00 - 0.20 K/uL [facility] MONOCYTES 7 3 - 13 % [facility] Blood specimen (specimen) 01/26/2009 4:41 PM HOSPITAL EDUCATOR 01/26/2009 5:07 PM HOSPITAL EDUCATOR us Sujatha Prado MD HEMATOLOGY ORDERABLES Edited INTERFACE SYSTEM Refer to clinic/hospital department [facility] CLIA# [id number] [address] [place] [address] documented in this encounter Visit Diagnoses Diagnosis Regional enteritis of unspecified site (CMS/HCC) Regional enteritis of unspecified site documented in this encounter Care Teams Roller Cleaner Relationship Specialty Start Date End Date Tessy Francois DO [address] [place] [address] PCP - General 11/17/15 documented as of this encounter
--- OUTSIDE RECORDS SUMMARY | 2025-03-26 12:49 | XMS_ITS | Clinical Summary ---
Author Organization [facility] Administrative Offices Address [address] [place] [address] Care Team Providers Care Transition Mgr Rn Name Role Phone Tessy Francois DO Primary Care Provider [phone] [phone] Allergies Active Allergy Reactions Criticality Noted Date Comments Cephalexin Anaphylaxis High 02/26/2013 Ciprofloxacin Unknown 02/26/2013 Hydrocodone Itching Low 04/01/2014 Unclassified Drug Seizure High 05/16/2017 spirolactine Medications FLUoxetine (PROZAC) 20 mg Oral tablet Take 1 Tab by mouth daily. 30 Tab 11 3 Active azaTHIOprine (IMURAN) 50 mg Oral tablet 3 Active NASCOBAL 500 mcg Both Nostril [facility] 3 Active DELZICOL 400 mg Oral CpDR [...] migh t be different from the original. Security Officer Supervisor - Dr Shashank Rodriguez Problem Noted Date [...] on file Legal Sex Female 5:28 AM AGRICULTURE LABORER Gender Identity Not on file Sexual Orientation Not on file Occupation Industry Job Start Date Job End Date Not on file Not on file Not on file Not on file Last Filed Vital Signs Vital Sign Reading Time Taken Comments Blood Pressure 136/72 12/30/2017 8:37 AM AGRICULTURE LABORER Pulse 71 05/16/2017 10:45 AM CDT Temperature - - Respiratory Rate 17 08/11/2013 11:39 AM CDT Oxygen Saturation - - Inhaled Oxygen Concentration - - Weight 73.5 kg (162 lb) 12/30/2017 8:37 AM AGRICULTURE LABORER Height 171.5 cm (5' 7.5 ) 12/30/2017 8:37 AM AGRICULTURE LABORER Body Mass Index 25 12/30/2017 8:37 AM AGRICULTURE LABORER Plan of Treatment Health Maintenance Due Date Last Done Comments FIT-DNA Q 3 years 2007 Flex Sig/CT Colonography Q 5 years 2007 ZOSTER VACCINE (1 of 2) 2012 FIT/FOBT Q 1 year 04/01/2015 04/01/2014 COLORECTAL SCREENING 04/04/2016 04/04/2015, 04/01/2014, 10/07/2008 Colorectal Cancer Screening 04/04/2016 DTAP/TDAP/TD VACCINES (2 - T d or Tdap) 06/01/2018 06/01/2008 BREAST CANCER SCREENING 01/01/2019 01/01/20 18, 02/06/2017, 07/20/2015, Additional history exists INFLUENZA VACCINE (#1) 2024 09/17/2012 RSV VACCINE (60+ or ) (1 - 1-dose 75+ series) 2037 Procedures Procedure Name Priority Date/Time Associated Diagnosis Comments MAMMO DIAGNOSTIC BILATERAL W OR WO CAD Routine 01/01/2018 10:27 AM AGRICULTURE LABORER Nipple discharge, bloody POC OCCULT BLOOD 1 CARD Routine 04/01/2014 1:30 PM CDT Routine gynecological examination from Last 3 Months or Most Recently Relevant to Health Maintenance Results * MAMMO DIAGNOSTIC BILATERAL W OR WO CAD (01/01/2018 10:27 AM AGRICULTURE LABORER) Anatomical Region Laterality Modality Breast Bilateral Mammography 01/01/2018 10:2 7 AM AGRICULTURE LABORER Impressions 01/01/2018 2:29 PM AGRICULTURE LABORER IMPRESSION: Bilateral breast implants. Negative and stable bilateral diagnostic mammogram. Mildly dilated ducts and occasional cysts, otherwise negative bilateral subareolar breast sonogram. If the bloody nipple discharge persists, recommend further evaluation with breast MRI. Overall Assessment: BI-RADS Category: 2. Benign finding(s). Dictation Location: [facility] 01/01/2018 2:29 PM AGRICULTURE LABORER BILATERAL DIAGNOSTIC DIGITAL IMPLANT MAMMOGRAMS WITH CAD [...] 2. Benign finding(s). Dictation Location: [facility] Danny Chan MD MAMMO ORDERABLES Final Result * POC OCCULT BLOOD 1 CARD (04/01/2014 1:30 PM CDT) OCCULT BLOOD #1 Negative Negative [facility] Stool specimen (specimen) 04/01/2014 1:30 PM CDT us Rock Bullock MD POINT OF CARE TESTING Final Resu lt [facility] from Last 3 Months or Most Recently Relevant to Health Maintenance Insurance [facility] [id number] Care Teams Transition Mgr Rn Relationship Specialty Start Date End Date Tessy Francois DO [address] [place] [address] PCP - General 11/17/15
--- OUTSIDE RECORDS SUMMARY | 2025-03-26 12:49 | XMS_ITS | Encounter Summary ---
Author Organization [facility] Address [address] [place] [address] Care Team Providers Care Oven Tender Name Role Phone Priscila Tessydasha Mchugh Primary Care Provider +1 [phone] Encounter Details Date Type Department Care Team (Latest Contact Info) Description 03/10/2009 Outpatient Historical HIS [facility] Sujatha Ledesma MD [address] [place] [address] Regional Enteritis of Unspecified Site (CMS/HCC) Social History Tobacco Use Types Packs/Day Years Used Date Smoking Tobacco: Never Assessed Comments Unknown Sex and Gender Information Value Date Recorded Sex Assigned at Not on file Legal Sex Female 5:28 AM GRINDER 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 UP 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 Gender Identity Not [...] 9.5 8.6 - 10.2 mg/dL [facility] CHLORIDE 101 96 - 108 mmol/L [facility] ALBUMIN 4.5 3.4 - 4.8 g/dL [facility] CREATININE 0.77 0.51 - 0.95 mg/dL [facility] SODIUM 138 135 - 145 mmol/L [facility] ALT 46(H) 0 - 31 U/L [facility] ALKALINE PHOSPHATASE 54 35 - 104 U/L [facility] BILIRUBIN TOTAL 0.3 0.2 - 1.0 mg/dL [facility] CO2 28 22 - 30 mmol/L [facility] TOTAL PROTEIN 7.2 6.3 - 8.6 g/dL [facility] POTASSIUM 3.9 3.5 - 4.9 mmol/L [facility] GLUCOSE 96 65 - 99 mg/dL [facility] AST 33(H) 12 - 32 U/L [facility] BUN 7 6 - 20 mg/dL [facility] GFR, >60 >=60 mL/min/1.7 sq meter [facility] GFR >60 >=60 mL/min/1.7 sq meter [facility] Comment: Modification of Diet in Renal Disease (MDRD) study formula. Estimated GFR rate interpretative information for both Americans and non- Americans is available on the [facility] Intranet at: [email or web address] Select: Lab Policies and Procedures Select: Reference Ranges - GFR Blood specimen (specimen) 03/10/2009 2:33 PM CDT 03/10/2009 3:22 PM CDT Sujatha Prado MD CHEMISTRY ORDERABLES Edited INTERFACE SYSTEM Refer to clinic/hospital department [facility] CLIA# [id number] [address] [place] [place] [address] * (ABNORMAL) CBC WITH DIFFERENTIAL (03/10/2009 2:33 PM CDT) RBC 4.13 3.90 - 4.90 M/uL [facility] MCHC 32.7 31.5 - 35.5 % [facility] MCV 101.5(H) 82.0 - 99.0 fL [facility] PLATELETS 315 140 - 350 K/uL [facility] HEMOGLOBIN 13.7 11.8 - 14.8 g/dL [facility] RDW 14.3 11.5 - 14.5 % [facility] WBC 7.6 4.0 - 9.8 K/uL [facility] MCH 33.2(H) 27.2 - 32.6 pg [facility] MPV 10.5 9.3 - 12.4 fL [facility] HEMATOCRIT 41.9 35.5 - 44.0 % [facility] RDW-STDEV 52.8(H) 37.1 - 48.7 fL [facility] NEUTROPHILS 67 45 - 70 % [facility] NEUTROPHIL ABSOLUTE 5.13 1.90 - 7.00 K/uL [facility] EOSINOPHILS 2 0 - 7 % [facility] EOSINOPHIL ABSOLUTE 0.17 0.00 - 0.70 K/uL [facility] LYMPHOCYTES 21 16 - 45 % [facility] LYMPHOCYTE ABSOLUTE 1.60 0.70 - 4.50 K/uL [facility] BASOPHILS 1 0 - 2 % [facility] BASOPHILS ABSOLUTE 0.05 0.00 - 0.20 K/uL [facility] MONOCYTES 9 3 - 13 % [facility] MONOCYTE ABSOLUTE 0.66 0.10 - 1.30 K/uL [facility] Blood specimen (specimen) 03/10/2009 2:33 PM CDT 03/10/2009 3:24 PM CDT us Sujatha Prado MD HEMATOLOGY ORDERABLES Edited INTERFACE SYSTEM Refer to clinic/hospital department [facility] CLIA# [id number] [address] [place] [address] documented in this encounter Visit Diagnoses Diagnosis Regional enteritis of unspecified site (CMS/HCC) Regional enteritis of unspecified site documented in this encounter Care Teams Oven Tender Relationship Specialty Start Date End Date Tessy Francois DO [address] [place] [address] PCP - General 11/17/15 documented as of this encounter
--- OUTSIDE RECORDS SUMMARY | 2025-03-26 12:49 | XMS_ITS | Encounter Summary ---
Author Organization [facility] Address [address] [place] [address] Care Team Providers Care Rolling Machine Operator Automatic Name Role Phone Priscila Tessy Britte Primary Care Provider +1 [phone] Encounter Details Date Type Department Care Team (Late st Contact Info) Description 10/26/2008 Outpatient Historical [facility] Mago Sarabia MD Social History Tobacco Use Types Packs/Day Years Used Date Smoking Tobacco: Never Assessed Comments Unknown Sex and Gender Information Value Date Recorded Sex Assigned at Not on file Legal Sex Female 5:28 AM BARBER SHOP OPERATOR Gender Identity Not on file Sexual Orientation Not on file documented as of this encounter Plan of Treatment Not on file documented as of this encounter Procedures Procedure Name Priority Date/Time Associated Diagnosis Comments STOOL CULTURE (SILVANO,SHIG,CAMPY,[id number]) Routine 10/26/2008 7:52 AM BARBER SHOP OPERATOR C. DIFFICILE DETECTION Routine 10/26/2008 7:52 AM BARBER SHOP OPERATOR FECAL LEUKOCYTES STAIN Routine 10/26/2008 7:52 AM BARBER SHOP OPERATOR OVA AND PARASITE SCREEN Routine 10/26/2008 7:52 AM BARBER SHOP OPERATOR documented in this encounter Results * CLOSTRIDIUM DIFFICILE TOXIN (10/26/2008 7:52 AM BARBER SHOP OPERATOR) FINAL REPORT NO Clostridium difficile Toxin A or B detected by EIA. A negative result does not rule out C. difficile associated diarrhea or colitis. [facility] Stool specimen (specimen) 10/26/2008 7:52 AM BARBER SHOP OPERATOR 10/26/2008 8:13 AM BARBER SHOP OPERATOR us Sujatha Praod MD MICROBIOLOGY - GENERAL ORDERABL ES Final Result Performing Organization Address [facility] de Phone Number INTERFACE SYSTEM Refer to clinic/hospital department [facility] CLIA# [id number] [address] [place] [address] * OVA AND PARASITE SCREEN (10/26/2008 7:52 AM BARBER SHOP OPERATOR) PRELIMINARY REPORT Pending [facility] FINAL REPORT Concentration : No ova or parasites seen. Trichrome: No ova or parasites seen. [facility] Stool specimen (specimen) 10/26/2008 7:52 AM BARBER SHOP OPERATOR 10/26/2008 8:15 AM BARBER SHOP OPERATOR Narrative INTERFACE SYSTEM - 11/02/2008 7:09 AM BARBER SHOP OPERATOR Performed by [employer] [address] Performed by [employer] [address] us Sujatha Prado MD MICROBIOLOGY - GENERAL ORDERABL ES Final Result Performing Organization Address [facility] Phone Number INTERFACE SYSTEM Refer to clinic/hospital department [facility] CLIA# [id number] [address] [place] [address] * FECAL LEUKOCYTES STAIN (10/26/2008 7:52 AM BARBER SHOP OPERATOR) FINAL REPORT Few WBC's seen [facility] Stool specimen (specimen) 10/26/2008 7:52 AM BARBER SHOP OPERATOR 10/26/2008 8:13 AM BARBER SHOP OPERATOR us Sujatha Prado MD MICROBIOLOGY - GENERAL ORDERABL ES Final Result Performing Organization Address [facility] de Phone Number INTERFACE SYSTEM Refer to clinic/hospital department [facility] CLIA# [id number] [address] [place] [address] * STOOL CULTURE (SILVANO,SHIG,CAMPY,[id number]) (10/26/2008 7:52 AM BARBER SHOP OPERATOR) PRELIMINARY REPORT No Salmonella isolated. No Shigella isolated. No Escherichia coli serogroup O157:H7 isolated. [facility] FINAL REPORT No Salmonella isolated. No Shigella isolated. No Escherichia coli serogroup O157:H7 isolated. No Camplylobacter isolated. [facility] Stool specimen (specimen) 10/26/2008 7:52 AM BARBER SHOP OPERATOR 10/26/2008 8:17 AM BARBER SHOP OPERATOR us Sujatha Prado MD MICROBIOLOGY - GENERAL ORDERABL ES Final Result INTERFACE SYSTEM Refer to clinic/hospital department [facility] CLIA# [id number] [address] [place] [address] documented in this encounter Visit Diagnoses Not on filedocumented in this encounter Care Teams Rolling Machine Operator Automatic Relationship Specialty Start Date End Date Tessy Francois DO [address] [place] [address] PCP - General 11/17/15 documented as of this encounter
--- OUTSIDE RECORDS SUMMARY | 2025-03-26 12:49 | XMS_ITS | Clinical Summary ---
Author Organization [facility] Address [address] [place] [address] Care Team Providers Care Nanotechnology Engineering Technician Name Role Phone Unavailable Primary Care Provider Unavailabl e Social History Tobacco Use Types Packs/Day Years Used Date Smoking Tobacco: Never Assessed Comments Unknown Sex and Gender Information Value Date Recorded Sex Assigned at Not on file Legal Sex Female 5:58 PM CDT Gender Identity Not on file Sexual Orientation Not on file Plan of Treatment Health Maintenance Due Date Last Done Comments Cervical Cancer Screening Pa p Smear (Age 30 to 64) Every 3 Years 1962 Colorectal Cancer Screening Colonoscopy (10 Years) 1962 Annual Physical 1965 Hepatitis C 1980 DTaP, Tdap and Td Vaccines ( 1 - Tdap) 1981 Cervical Cancer Screening Pa p with HPV Testing (Age 30 to 64) Every 5 Years 1992 Cervical Cancer Screening with HPV 1992 Mammogram Screening 2002 Pneumococcal Vaccine: 50+ Ye ars (1 of 1 - PCV) 2012 Zoster Vaccines (1 of 2) 2012 COVID-19 Vaccine (2023-2 5 season) 2024 RSV Immunization or 60+ Years (1 - 1-dose 75+ series) 2037 Meningococcal B Vaccine Aged Out No l onger eligible based on patient's age to complete this topic Meningococcal Vaccine Aged Out No geoffrey víctor eligible based on patient's age to complete this topic RSV Immunizations Under 20 Months Aged Out No longer eligible based on patient's age to complete this topic
--- OUTSIDE RECORDS SUMMARY | 2025-03-26 12:49 | XMS_ITS | Encounter Summary ---
Author Organization [facility] Address [address] [place] [address] Care Team Providers Care Software Sales Executive Name Role Phone FrancoisTessy verduzco Primary Care Provider [phone] Encounter Details Date Type Department Care Team (Latest Contact Info) Description 12/06/2008 Outpatient Historical [facility] Sujatha Ledesma MD [address] [place] [address] Regional Enteritis of Large Intestine (CMS/HCC) Social History Tobacco Use Types Packs/Day Years Used Date Smoking Tobacco: Never Assessed Comments Unknown Sex and Gender Information Value Date Recorded Sex Assigned at Not on file Legal Sex Female 5:28 AM WASHER REPAIRMAN Gender Identity Not on file Sexual Orientation Not on file documented as of this encounter Plan of Treatment Not on file documented as of this encounter Procedures Procedure Name Priority Date/Time Associated Diagnosis Comments MISCELLANEOUS LAB TEST Routine 9 10:17 AM WASHER REPAIRMAN documented in this encounter Results * MISCELLANEOUS LAB TEST (12/06/2008 10:17 AM WASHER REPAIRMAN) TEST NAME TPMT [facility] SPECIMEN TYPE Blood [facility] MISCELLANEOUS LAB TEST Name of Test: TPMT Test Result: TPMT*1/TPMT*1 Alleles present are associated with Normal Enzyme Activity Reference Range: TPMT*1/TPMT*1 Test Performed By: Piqora [place], [place] [facility] Specimen of unknown material (specimen) 12/06/2008 10:17 AM WASHER REPAIRMAN 12/06/2008 10:34 AM WASHER REPAIRMAN Narrative INTERFACE SYSTEM - 12/09/2008 8:39 AM WASHER REPAIRMAN Name of test:tpmt genotype us Sujatha Prado MD CHEMISTRY ORDERABLES Edited INTERFACE SYSTEM Refer to clinic/hospital department [facility] CLIA# [id number] [address] [place] [address] documented in this encounter Visit Diagnoses Diagnosis Regional enteritis of large intestine (CMS/HCC) Regional enteritis of large intestine documented in this encounter Care Teams Software Sales Executive Relationship Specialty Start Date End Date Tessy Francois DO [address] [place] [address] PCP - General 11/17/15 documented as of this encounter
--- OUTSIDE RECORDS SUMMARY | 2025-03-26 12:49 | XMS_ITS | Clinical Summary ---
Author Organization [facility] Address [address] [place] [address] Care Team Providers Care Handle Bender Name Role Phone Dillan Woody MD Primary Care Provider [phone] Kirsten Eaton NP Unavailable [phone] Allergies Active Allergy Reactions Criticality Noted Date Comments Cephalexin Hydrocodone Active Problems Problem Noted Date Diagnosed Date Palpitations 01/27/2016 Tachycardia, unspecified 01/27/2016 Family history of sudden cardiac (SCD) Encounters Date Type Department Care Team Description 02/15/2025 12:35 PM CDT - 02/15/2025 11:59 PM CDT Hospital Encounter [facility] [address] [place] [address] Chest pain, unspecified type Discharge Disposition: Discharge to home or self care 02/08/[address] [facility] Cardiology [address] [facility] 8th [place] [address] [place] [address] Damion Peck from Last 3 Months Family History Medical History Relation Name Comments Stroke Father Family history of cerebrovascular accident (CVA) - (Added by TW Conv) Diabetes Mother Family history of diabetes mellitus - (Added by TW Conv) Sudden Cardiac Sister 1 Family history of sudden cardiac (SCD) - (Added by TW Conv) Sudden Cardiac Sister 2 Family history of sudden cardiac - (Added by TW Conv) Relation Name Status Comments Father Mother Sister 1 Sister 2 Social History Tobacco Use Types Packs/Day Years Used Date Smoking Tobacco: Every Day Comments Unknown Sex and Gender Information Value Date Recorded Sex Assigned at Not on file Legal Sex Female 2:28 AM SETTER COLD ROLLING MACHINE Gender Identity Female 02/04/2025 6:43 PM SETTER COLD ROLLING MACHINE Sexual Orientation Straight 02/04/2025 6: 43 PM SETTER COLD ROLLING MACHINE Obstetrics History Last Filed Vital Signs Vital Sign Reading Time Taken Comments Blood Pressure 172/99 02/15/2025 1:10 PM CDT Pulse 65 02/15/2025 1:10 PM CDT Temperature 37.2 C (98.9 F) 08/21/2016 3:48 PM CDT Respiratory Rate - - Oxygen Saturation 97% 08/21/2016 3:48 PM CDT Inhaled Oxygen Concentration - - Weight 68 kg (150 lb) 08/21/2016 3:48 PM CDT Height 172.7 cm (5' 8 ) 08/21/2016 3:48 PM CDT Body Mass Index 22.81 08/21/2016 3:48 PM CDT Plan of Treatment Health Maintenance Due Date Last Done Comments Breast Cancer Screening-Mammogram 1962 Cervical Cancer Screening 1962 Colon Cancer Screening-Colonoscopy 1962 Depression Screening 1962 Hepatitis C Screening 1962 Hepatitis B Screening 1980 Regular Well Visit/Exam 18-64 1980 DTaP/Tdap/Td Vaccine (3 - Td or Tdap) 09/14/2025 09/14/2015, 06/01/2008 Influenza Vaccine Completed 08/13/2024, , 10/11/2018, Additional history exists Pneumococcal vaccine <65 Completed 10/15/2024, 1012/2014 Zoster Vaccine Completed 12/30/2024, 10/02, 09/14/2015 Procedures Procedure Name Priority Date/Time Associated Diagnosis Comments CT HEART MORPHOLOGY AND CORONARY ARTERIES W CONTRAST Schedule Routine, Read Routine (OP Routine) 02/15/2025 1:48 PM CDT Chest pain, unspecified type POCT CREATININE - DEVICE Routine 02/15/2025 12:59 PM CDT from Last 3 Months Results * CTA Heart and Coronary Arteries W Morphology when Performed (02/15/2025 1:48 PM CDT) Anatomical Region Laterality Modality Chest N/A Computed Tomogra phy 02/15/2025 2:15 PM CDT Impressions 02/15/2025 2:20 PM CDT 1. Calcified atherosclerosis of the proximal left anterior descending coronary artery resulting in mild, 25-20% stenosis. Mild calcified atherosclerosis of the mid right coronary artery resulting in mild, less than 25% stenosis. 2. Calculated calcium score of 90.7. Dictated by: Jon Pichardo MD The radiology attending physician has personally reviewed this study, and had reviewed and/or edited this written report and agrees with it. Electronically signed by: Heladio Amin M.D. Narrative 02/15/2025 2:20 PM CDT EXAMINATION: CORONARY CT ANGIOGRAM HISTORY: Chest pain TECHNIQUE: CT angiography of the coronary arteries was performed after the administration of 94 mL of Optiray 350. Images were also obtained precontrast for the purposes of calcium scoring. 10 mg of metoprolol was administered intravenously prior to the examination.. Images were transferred to a 3D workstation for additional post-processing. FINDINGS: The coronary arteries are right system dominant. No anomalous origin or course of the coronary arteries. Right coronary system: Calcified atherosclerosis of the mid right coronary artery resulting in mild, less than 25% stenosis. Left coronary system: No significant atherosclerosis or luminal narrowing of the left main coronary artery. Calcified and noncalcified atherosclerosis of the proximal left anterior descending coronary artery resulting in mild, 25-50% stenosis. No significant atherosclerosis or luminal narrowing of the left circumflex coronary artery. The calculated calcium score is 90.7. Other findings: Heart size is normal without pericardial effusion. Mild bibasilar atelectasis. Small hiatal hernia. No suspicious osseous lesions. Procedure Note Heladio Amin MD - 02/15/2025 EXAMINATION: CORONARY CT ANGIOGRAM HISTORY: Chest pain TECHNIQUE: CT angiography of the coronary arteries was performed after the administration of 94 mL of Optiray 350. Images were also obtained precontrast for the purposes of calcium scoring. 10 mg of metoprolol was administered intravenously prior to the examination.. Images were transferred to a 3D workstation for additional post-processing. FINDINGS: The coronary arteries are right system dominant. No anomalous origin or course of the coronary arteries. Right coronary system: Calcified atherosclerosis of the mid right coronary artery resulting in mild, less than 25% stenosis. Left coronary system: No significant atherosclerosis or luminal narrowing of the left main coronary artery. Calcified and noncalcified atherosclerosis of the proximal left anterior descending coronary artery resulting in mild, 25-50% stenosis. No significant atherosclerosis or luminal narrowing of the left circumflex coronary artery. The calculated calcium score is 90.7. Other findings: Heart size is normal without pericardial effusion. Mild bibasilar atelectasis. Small hiatal hernia. No suspicious osseous lesions. IMPRESSION: 1. Calcified atherosclerosis of the proximal left anterior descending coronary artery resulting in mild, 25-20% stenosis. Mild calcified atherosclerosis of the mid right coronary artery resulting in mild, less than 25% stenosis. 2. Calculated calcium score of 90.7. Dictated by: Jon Pichardo MD The radiology attending physician has personally reviewed this study, and had reviewed and/or edited this written report and agrees with it. Electronically signed by: Heladio Amin M.D. Dell Dunham DO IMG CT PROCEDURES Final Resu lt * POCT creatinine (02/15/2025 12:59 PM CDT) Creatinine POC 0.8 0.6 - 1.1 mg/dL Blood 02/15/2025 12:5 9 PM CDT 02/15/2025 12:59 PM CDT us Dell Dunham DO LAB POCT ORDERABLES - DEVICE Final Result [facility] [place] [address] from Last 3 Months Insurance [facility] ACCESS CHOICE ANTH ACCESS CHOICE Care Teams Handle Bender Relationship Specialty Start Date End Date Dillan Woody MD [address] [place] [address] PCP - General 05/30/12 Kirsten Eaton NP [address] [place] [address] [place] [address] Internal Medicine 01/28/25
--- OUTSIDE RECORDS SUMMARY | 2025-03-26 12:49 | XMS_ITS | Encounter Summary ---
Author Organization [facility] Address [address] [facility] Attn: Epic Prelude ADT [address] [place] [address] Care Team Providers Care Cost Estimating Manager Name Role Phone Tessy Francois DO Primary Care Provider [phone] Encounter Details Date Type Department Care Team (Late st Contact Info) Description 08/27/2007 Outpatient Historical Amari Emmanuel MD NO ADDRESS ON FILE Social History Tobacco Use Types Packs/Day Years Used Date Smoking Tobacco: Never Assessed Comments Unknown Sex and Gender Information Value Date Recorded Sex Assigned at Not on file Legal Sex Female 5:28 AM METAL NEUTRALIZER Gender Identity Not on file Sexual Orientation Not on file documented as of this encounter Plan of Treatment Not on file documented as of this encounter Visit Diagnoses Not on filedocumented in this encounter Care Teams Cost Estimating Manager Relationship Specialty Start Date End Date Tessy Francois DO [address] [place] [address] PCP - General 11/17/15 documented as of this encounter
--- OUTSIDE RECORDS SUMMARY | 2025-03-26 12:49 | XMS_ITS | Referral Summary ---
Author Organization [facility] Address [address] [place] [address] Care Team Providers Care Apprentice Architect Name Role Phone Dillan Woody MD Primary Care Provider [phone] Kirsten Eaton HORSE RACETRACK MANAGER Unavailable [phone] Encounters Date Type Department Care Team Description 02/15/2025 12:35 PM CDT - 02/15/2025 11:59 PM CDT Hospital Encounter [facility] [address] [place] [address] Chest pain, unspecified type Discharge Disposition: Discharge to home or self care 02/08/2025 Telephone [facility] Cardiology [facility] 8th [place] [address] [place] [address] Damion Peck from Last 3 Months Allergies Active Allergy Reactions Criticality Noted Date Comments Cephalexin Hydrocodone Active Problems Problem Noted Date Diagnosed Date Palpitations 01/27/2016 Tachycardia, unspecified 01/27/2016 Family history of sudden cardiac (SCD) Social History Tobacco Use Types Packs/Day Years Used Date Smoking Tobacco: Every Day Comments Unknown Sex and Gender Information Value Date Recorded Sex Assigned at Not on file Legal Sex Female 2:28 AM JUKE BOX MECHANIC Gender Identity Female 02/04/2025 6:43 PM JUKE BOX MECHANIC Sexual Orientation Straight 02/04/2025 6: 43 PM JUKE BOX MECHANIC Last Filed Vital Signs Vital Sign Reading [...] 08/21/2016 3:48 PM CDT Plan of Treatment Not on [...] it. Electronically signed by: Heladio Amin M.D. us Dell Dunham DO IMG CT PROCEDURES Final Resu lt * POCT creatinine (02/15/2025 12:59 PM CDT) Creatinine POC 0.8 0.6 - 1.1 mg/dL Blood 02/15/2025 12:5 9 PM CDT 02/15/2025 12:59 PM CDT us Dell Dunham DO LAB POCT ORDERABLES - DEVICE Final Result [facility] [place] [address] from Last 3 Months Insurance [employer] Care Teams Apprentice Architect Relationship Specialty Start Date End Date Dillan Woody MD [address] [place] [address] PCP - General 05/30/12 Kirsten Eaton NP [address] [place] [address] [address] Internal Medicine 01/28/25
--- OUTSIDE RECORDS SUMMARY | 2025-03-26 12:49 | XMS_ITS | Encounter Summary ---
Author Organization [facility] Address 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 Gender Identity Not on file Sexual [...] CDT) GLUCOSE 151(H) 65 - 99 mg/dL [facility] AST 17 12 - 32 U/L [facility] BUN 11 6 - 20 mg/dL [facility] CALCIUM 9.2 8.6 - 10.2 mg/dL [facility] CHLORIDE 102 96 - 108 mmol/L [facility] ALBUMIN 4.1 3.4 - 4.8 g/dL [facility] CREATININE 0.67 0.51 - 0.95 mg/dL [facility] SODIUM 138 135 - 145 mmol/L [facility] ALT 14 0 - 31 U/L [facility] ALKALINE PHOSPHATASE 61 35 - 104 U/L [facility] BILIRUBIN TOTAL 0.4 0.2 - 1.0 mg/dL [facility] CO2 25 22 - 30 mmol/L [facility] TOTAL PROTEIN 7.0 6.3 - 8.6 g/dL [facility] POTASSIUM 3.6 3.5 - 4.9 mmol/L [facility] GFR, >60 >=60 mL/min/1. 7 sq meter [facility] GFR >60 >=60 mL/min/1. 7 sq meter [facility] Comment: Modification of Diet in Renal Disease (MDRD) study formula. Estimated GFR rate interpretative information for both Americans and non- Americans is available on the [facility] Intranet at: [email or web address] Select: Lab Policies and Procedures Select: Reference Ranges - GFR Blood specimen (specimen) 04/18/2009 1:13 PM CDT 04/18/2009 2:00 PM CDT Sujatha Prado MD CHEMISTRY ORDERABLES Edited INTERFACE SYSTEM Refer to clinic/hospital department [facility] CLIA# [id number] [address] [place] [address] * (ABNORMAL) CBC WITH DIFFERENTIAL (04/18/2009 1:13 PM CDT) MCV 101.5(H) 82.0 - 99.0 fL [facility] PLATELETS 319 140 - 350 K/uL [facility] HEMOGLOBIN 13.3 11.8 - 14.8 g/dL [facility] RDW 14.1 11.5 - 14.5 % [facility] WBC 7.2 4.0 - 9.8 K/uL [facility] MCH 33.9(H) 27.2 - 32.6 pg [facility] MPV 10.3 9.3 - 12.4 fL [facility] HEMATOCRIT 39.8 35.5 - 44.0 % [facility] RDW-STDEV 52.2(H) 37.1 - 48.7 fL [facility] RBC 3.92 3.90 - 4.90 M/uL [facility] MCHC 33.4 31.5 - 35.5 % [facility] EOSINOPHILS 1 0 - 7 % [facility] EOSINOPHIL ABSOLUTE 0.10 0.00 - 0.70 K/uL [facility] LYMPHOCYTES 21 16 - 45 % [facility] LYMPHOCYTE ABSOLUTE 1.50 0.70 - 4.50 K/uL [facility] BASOPHILS 0 0 - 2 % [facility] BASOPHILS ABSOLUTE 0.03 0.00 - 0.20 K/uL [facility] MONOCYTES 5 3 - 13 % [facility] MONOCYTE ABSOLUTE 0.37 0.10 - 1.30 K/uL [facility] NEUTROPHILS 72(H) 45 - 70 % [facility] NEUTROPHIL ABSOLUTE 5.15 1.90 - 7.00 K/uL [facility] Blood specimen (specimen) 04/18/2009 1:13 PM CDT 04/18/2009 1:53 PM CDT us Sujatha Prado MD HEMATOLOGY ORDERABLES Edited INTERFACE SYSTEM Refer to clinic/hospital department [facility] CLIA# [id number] [address] [place] [address] documented in this encounter Visit Diagnoses Diagnosis Regional enteritis of unspecified site (CMS/HCC) Regional enteritis of unspecified site documented in this encounter Care Teams Social Worker Assistant Relationship Specialty Start Date End Date Tessy Francois DO [address] [place] [address] PCP - General 11/17/15 documented as of this encounter
--- OUTSIDE RECORDS SUMMARY | 2025-03-26 12:49 | XMS_ITS | Encounter Summary ---
Author Organization [facility] Address [address] [place] [address] Care Team Providers Care Vice President Of Consulting Services Name Role Phone Rock Bullock MD Primary Care Provider [phone] Dillan Woody MD Primary Care Provider [phone] Kirsten Eaton [facility] Primary Care Provider [phone] Encounter Details Date Type Department Care Team (Late Contact Info) Description 12/28/2010 [facility] Rock Bullock MD [address] [place] [address] [address] [place] [id number] Social History Tobacco Use Types Packs/Day Years Used Date Smoking Tobacco: Passive Smo ke Exposure - Never Smoker Smokeless Tobacco: Never Alcohol Use Standard Drinks/Week Comments Yes 0 (1 standard drink = 0.6 oz pur e alcohol) Occasional Comments No Sex and Gender Information Value Date Recorded Sex Assigned at Not on file 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 Gender Identity Not on file Sexual Orientation Not on file documented as of this encounter Plan of Treatment Upcoming Encounters Date Type Department Care Team (Late Contact Info) Description 06/28/2025 10:00 AM CDT Office Visit [facility] - Neurology [address] [place] [address], [place] [address] Shira Ogden PROCESS MANAGER-SCIENTIFIC RECRUITER [address] [place] [address] [place] [address] documented as of this encounter Visit Diagnoses Not on filedocumented in this encounter Care Teams Vice President Of Consulting Services Relationship Specialty Start Date End Date Rock Bullock MD [address] [place] [address] PCP - General 12/26/10 02/25/12 Dillan Woody MD [address] [place] [address] PCP - General Internal Medicine 02/26/12 02/25/25 Kirsten Eaton APRN-SCIENTIFIC RECRUITER [address] [place] [address] PCP - General Nurse Practitioner 02/26/25 documented as of this encounter
--- OUTSIDE RECORDS SUMMARY | 2025-03-26 12:49 | XMS_ITS | Patient Health Record ---
Author Organization [facility] Address [address] [place] [address] Care Team Providers Care Garden Machinery Mechanic Name Role Phone Kirsten Eaton APN Primary Care Provider Unavailab Max Gallardo Unavailable [phone] Allergies Allergen (clinical drug ingredient) Drug/Non Drug [...] Problem Status W/U Status Risk Notes Problem 60146508 MAYANK (generalized anxiety disorder) (F41.1) Active confirmed Problem 56747551 Severe episode of recurrent major depressive disorder, without psychotic features (F33.2) Active confirmed Problem 66699945 MDD (major depressive disorder), recurrent episode, moderate (F33.1) Active confirmed Problem 053590526 Marijuana use (F12.90) Active confirmed Problem 627080 Alcohol use (Z78.9) Active confirmed Vital Signs Heart Rate 82 /min 09/17/2024 Blood pressure diastolic 91 mm Hg 09/17/2024 Weight-kg 78.74 kg 09/17/2024 Blood pressure systolic 135 mm Hg 09/17/2024 Weight 173.6 lbs 09/17/2024 Encounters Encounter Location Date Provider Diagnosis [facility] [employer] [address] [address] 08/20/2024 [facility] Severe episode of recurrent major depressive disorder, without psychotic features F33.2 ; MAYANK (generalized anxiety disorder) F41.1 ; Marijuana use F12.90 and Alcohol use Z78.9 [facility] [employer] [address] [address] 09/17/2024 [facility] MAYANK (generalized anxiety disorder) F41.1 ; MDD (major depressive disorder), recurrent episode, moderate F33.1 ; Alcohol use Z78.9 and Marijuana use F12.90 [facility] [employer] [address] [address] 10/19/2024 [facility] Effective Measure [address] [address] 12/24/2024 [facility] Assessments Encounter Date Diagnosis [...] Start Date Coverage End Date [employer] [place] [address] [id number] ZEINA GOSS Self - patient is the [...]
--- OUTSIDE RECORDS SUMMARY | 2025-03-26 12:49 | XMS_ITS | Encounter Summary ---
Author Organization [facility] Address [address] [place] [address] Care Team Providers Care Medical Assistant Dermatology Name Role Phone Tessy Francois DO Primary Care Provider [phone] Encounter Details Date Type Department Care Team (Late st Contact Info) Description 08/28/2007 Outpatient Historical [facility] Support Serv. (Adt Cardiology[facility]) [address] 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
--- OUTSIDE RECORDS SUMMARY | 2025-03-26 12:49 | XMS_ITS | Encounter Summary ---
Author Organization [employer] [facility] Address [address] [place] [address] Care Team Providers Care Greens Picker Name Role Phone Priscila Tessydasha Mchugh Primary Care Provider [phone] [phone] Encounter Details Date Type Department Care Team (Latest Contact Info) Description 07/08/2009 Outpatient Historical HIS [facility] Sujatha Ledesma MD [address] [place] [address] Regional Enteritis of Unspecified Site (CMS/HCC) Social History Tobacco Use Types Packs/Day Years Used Date Smoking Tobacco: Never Assessed Comments Unknown Sex and Gender Information Value Date Recorded Sex Assigned at Not on file 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 400 Result Assessment: Higher Risk of Leucopenia. Higher Likelihood of Response. Metabolite: 6-MMPN Result (Units: pmole/8x10^8 RBC): 2516 Reference Range: <5700 Result Assessment: Lower Risk of Hepatotoxicity. Test Performed By: [employer], [place], [place] [facility] Specimen of unknown material (specimen) 07/13/2009 12:26 PM CDT 07/13/2009 12:36 PM CDT us Sujatha Prado MD CHEMISTRY ORDERABLES Edited Performing Organization Address [facility]/ZIP Co de Phone Number [facility] CLIA# [id number] [address] [place] [address] * VITAMIN B12 (07/13/2009 12:26 PM CDT) Pathologist [facility] VITAMIN B12 303 211 - 946 pg/mL [facility] Comment: It has been reported that between 5 to 10% of patients with values between 200 and 400 pg/mL may experience neuropsychiatric and hematologic abnormalities due to occult B12 deficiency. Less than 1% of patients with values above 400 pg/mL will have symptoms. Blood specimen (specimen) 07/13/2009 12:26 PM CDT 07/13/2009 12:36 PM CDT us Sujatha Prado MD CHEMISTRY ORDERABLES Edited [facility] CLIA# [id number] [address] [place] [address] * TSH (07/13/2009 12:26 PM CDT) [facility] TSH 0.98 0.27 - 4.20 uU/mL [facility] Blood specimen (specimen) 07/13/2009 12:26 PM CDT 07/13/2009 12:36 PM CDT Sujatha Prado MD CHEMISTRY ORDERABLES Final Resu lt [facility] CLIA# [id number] [address] [address] * (ABNORMAL) CBC WITH DIFFERENTIAL (07/13/2009 12:26 PM CDT) [facility] RDW 16.4(H) 11.5 - 14.5 % [facility] WBC 8.8 4.0 - 9.8 K/uL [facility] MCH 36.7(H) 27.2 - 32.6 pg [facility] MPV 10.1 9.3 - 12.4 fL [facility] HEMATOCRIT 39.9 35.5 - 44.0 % [facility] RDW-STDEV 63.0(H) 37.1 - 48.7 fL [facility] RBC 3.73(L) 3.90 - 4.90 M/uL [facility] MCHC 34.3 31.5 - 35.5 % [facility] MCV 107.0(H) 82.0 - 99.0 fL [facility] PLATELETS 380(H) 140 - 350 K/uL [facility] HEMOGLOBIN 13.7 11.8 - 14.8 g/dL [facility] LYMPHOCYTES 7(L) 16 - 45 % [facility] LYMPHOCYTE ABSOLUTE 0.60(L) 0.70 - 4.50 K/uL [facility] BASOPHILS 0 0 - 2 % [facility] BASOPHILS ABSOLUTE 0.02 0.00 - 0.20 K/uL [facility] MONOCYTES 2(L) 3 - 13 % [facility] MONOCYTE ABSOLUTE 0.18 0.10 - 1.30 K/uL [facility] NEUTROPHILS 91(H) 45 - 70 % [facility] NEUTROPHIL ABSOLUTE 7.94(H) 1.90 - 7.00 K/uL [facility] EOSINOPHILS 0 0 - 7 % [facility] EOSINOPHIL ABSOLUTE 0.01 0.00 - 0.70 K/uL [facility] Blood specimen (specimen) 07/13/2009 12:26 PM CDT 07/13/2009 12:36 PM CDT Sujatha Prado MD HEMATOLOGY ORDERABLES Edited [facility] CLIA# [id number] [address] [place] [address] documented in this encounter Visit Diagnoses Diagnosis Regional enteritis of unspecified site (CMS/HCC) Regional enteritis of unspecified site documented in this encounter Care Teams Greens Picker Relationship Specialty Start Date End Date Tessy Francois DO [address] [place] [address] PCP - General 11/17/15 documented as of this encounter
--- OUTSIDE RECORDS SUMMARY | 2025-03-26 12:50 | XMS_ITS | Encounter Summary ---
Author Organization [email or web address] Address [address] [place] [address] Care Team Providers Care Director Of Rehabilitative Services Name Role Phone Tessy Francois DO Primary Care Provider [phone] Encounter Details Date Type Department Care Team (Late st Contact Info) Description 08/28/2007 Outpatient Historical HIS [facility] [place] [address] [address] [place] [address] Other Chest Pain (Primary Dx) Social History Tobacco Use Types Packs/Day Years Used Date Smoking Tobacco: Never Assessed Comments Unknown Sex and Gender Information Value Date Recorded Sex Assigned at Not on file 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 Gender Identity Not on file Sexual [...] INTERFACE SYSTEM 08/29/2007 6:00 AM CDT us VijaRavenflowkumari Ying CHEMISTRY ORDERABLES Edited Performing Organization Address [facility] de Phone Number INTERFACE SYSTEM [...] classifications for lipids are available on the [facility] Intranet at: [email or web address] Select: Lab Policies and Procedures,Current Select: Lipid Panel Interpretation 08/29/2007 6:00 AM CDT us [employer] Ying CHEMISTRY ORDERABLES Edited Performing Organization Address [facility] de Phone Number INTERFACE SYSTEM Refer to clinic/hospital department * PHOSPHORUS (08/29/2007 6:00 AM CDT) PHOSPHORUS 4.0 2.5 - 4.5 mg/dL INTERFACE SYSTEM 08/29/2007 6:00 AM CDT us VijayakRentWikii Ying CHEMISTRY ORDERABLES Edited Performing Organization Address City/[facility] Co de Phone Number INTERFACE SYSTEM Refer to clinic/hospital department * MAGNESIUM LEVEL (08/29/2007 6:00 AM CDT) MAGNESIUM 2.2 1.5 - 2.5 mg/dL INTERFACE SYSTEM 08/29/2007 6:00 AM CDT us VijayakRentWikii Ying CHEMISTRY ORDERABLES Edited Performing Organization Address City/State/[facility] de Phone Number INTERFACE SYSTEM Refer to clinic/hospital department * TROPONIN (W/REFLEX CKMB/CK) (08/28/2007 11:35 PM CDT) TROPONIN T 0.01 <=0.03 ng/mL INTERFACE SYSTEM TROPONIN T INTERP Negative INTERFACE SYSTEM 08/28/2007 11:3 5 PM CDT Viangel Ying CHEMISTRY ORDERABLES Edited Performing Organization Address [facility] de Phone Number INTERFACE SYSTEM [...] MD URINE ORDERABLES Edited Performing Organization Address [facility] Phone Number INTERFACE SYSTEM Refer to clinic/hospital department * TROPONIN (W/REFLEX CKMB/CK) (08/28/2007 5:13 PM CDT) TROPONIN T <0.01 <=0.03 ng/mL INTERFACE SYSTEM TROPONIN T INTERP Negative INTERFACE SYSTEM 08/28/2007 5:13 PM CDT Haley Ying CHEMISTRY ORDERABLES Edited Performing Organization Address [facility] de Phone Number INTERFACE SYSTEM Refer to clinic/hospital department * TROPONIN (W/REFLEX CKMB/CK) (08/28/2007 2:52 PM CDT) TROPONIN T <0.01 <=0.03 ng/mL INTERFACE SYSTEM TROPONIN T INTERP Negative INTERFACE SYSTEM 08/28/2007 2:52 PM CDT Ajsánchez Ying CHEMISTRY ORDERABLES Edited Performing Organization Address City/[facility] Co de Phone Number INTERFACE SYSTEM Refer [...] MD HEMATOLOGY ORDERABLES Edited Performing Organization Address [facility] de Phone Number INTERFACE SYSTEM [...] and non- Americans is available on the [facility] Intranet at: [email or web address] Select: Lab [...] Primary documented in this encounter Care Teams Director Of Rehabilitative Services Relationship Specialty Start Date End Date Tessy Francois DO [address] [place] [address] PCP - General 11/17/15 documented as of this encounter
--- OUTSIDE RECORDS SUMMARY | 2025-03-26 12:50 | XMS_ITS | Clinical Summary ---
Author Organization [facility] Address [address] [place] [address] Care Team Providers Care Vice President Of Engineering Name Role Phone Kirsten Eaton DICTATING MACHINE MECHANIC[facility] Primary Care Provider [phone] Source Comments [facility],non-owned Affiliates and Associated Physician Practices is amultiple site organization consisting of ambulatory clinics and hospital sitesin [place], [place], [place] and [place]. This disclosure is being madepursuant to the Care Everywhere program and may not contain all information available regarding this patient. Last updated 18.[facility] Allergies Active Allergy Reactions Criticality Noted Date Comments Ciprofloxacin 01/05/2011 Rash at infusion site immediately upon adminitration 01/05/11 Cephalexin Anaphylaxis High 12/19/2010 Medications * Be aware that medications may not be up to date on this document. Alwaysverify current medications with the patient. FLUoxetine (PROZAC) 20 MG capsule Take 1 Cap by mouth once daily. 30 Cap 11 2 Active Additional Information Patient taking differently: 40 mgOral DAILY, Reported on 02/26/2025 spironolactone (Aldactone) 50 MG tablet Take 1 (one) tablet by mouth once daily Active levothyroxine (Synthroid) 50 MCG tablet Take 1 (one) tablet by mouth daily before breakfast Active esomeprazole (NexIUM) 40 MG capsule Take 1 (one) capsule by mouth daily before breakfast Active propranolol (Inderal) 10 MG tablet Take 1 (one) tablet by mouth every 8 hours Active Ubrelvy 50 MG tabletIndicatio ns:Migraine without aura and without status migrainosus, not intractable Take 1 (one) tablet by mouth once daily as needed for Migraine 14 tablet 5 5 Active ASACOL PO Take 1,200 Caps by mouth 2 times daily. 025 Discontin ued(List Clean-Up) azathioprine (IMURAN) 50 MG tablet Take 125 mg by mouth daily. 025 Discontin ued(List Clean-Up) Cyanocobalamin (NASCOBAL) 500 MCG/0.1ML SOLN [place] 1 Squirt into the nose every 7 days. 025 Discontin ued(List Clean-Up) Meloxicam (MOBIC PO) Take by mouth. 025 Discontin ued(List Clean-Up) estradiol (VIVELLE-DOT) 0.1 MG/24HR patch 1 Patch Two times a week. 8 Patch 11 2 025 Discontin ued(List Clean-Up) Ubrelvy 50 MG tablet Take 1 (one) tablet by mouth once daily as needed for Migraine 5 025 Discontin ued(Reord er) Active Problems Problem Noted Date Diagnosed Date Status post endometrial ablation 03/07/2010 Crohn disease 03/07/2010 Screening for cervical cancer 03/22/2009 Overview (12/18/2010): 03/07/2010, 11/23/08 WNL Other screening mammogram 03/22/2009 Overview (03/22/2009): 04/25/06 R breast neg Screen for colon cancer 03/22/2009 Overview (03/22/2009): 10/09 Resolved Problems Problem Noted Date Diagnosed Date Resolved Date Fibroid, uterine 01/05/2011 01/07/2011 DUB (dysfunctional uterine bleeding) 03/07/2010 01/07/2011 Encounters Date Type Department Care Team Description 03/04/2025 Telephone [facility] - Neurology [address] [facility] [place] [id number] Shira Ogden, DICTATING MACHINE MECHANIC-SDET Medication Prior Auth Request (Ubrelvy 50mg) 02/26/2025 9:00 AM CDT Office Visit [facility] - Neurology [address] [place] [phone] Shira Ogden APRN-CNP Migraine without aura and without status migrainosus, not intractable (Primary Dx) 02/26/2025 Travel 02/01/2025 Travel from Last 3 Months Immunizations Immunization Administration Dates Next Due TDAP (7yrs+) 06/01/2008 Family History Medical History Relation Name Comments Hypertension Brother COPD - Chronic Obstructive Pulmonary Disease Mother Diabetes Mother Relation Name Status Comments Brother Mother Social History Tobacco Use Types Packs/Day Years Used Date Smoking Tobacco: Former Cigarettes Smokeless Tobacco: Never Tobacco Cessation:Counseling Given: Not Answered Alcohol Use Standard Drinks/Week Comments Yes 0 (1 standard drink = 0.6 oz pur e alcohol) Occasional Comments No Sex and Gender Information Value Date Recorded Sex Assigned at Not on file Legal Sex Female 4:31 AM SUPERVISOR PAINT Gender Identity Not on file Sexual Orientation Not on file Last Filed Vital Signs Vital Sign Reading Time Taken Comments Blood Pressure 155/86 02/26/2025 9:05 AM CDT Pulse 71 02/26/2025 9:05 AM CDT Temperature 36.3 C (97.3 F) 01/07/2011 8:00 AM SUPERVISOR PAINT Respiratory Rate 18 01/07/2011 8:00 AM SUPERVISOR PAINT Oxygen Saturation 98% 02/26/2025 9:05 AM CDT Inhaled Oxygen Concentration - - Weight 79.8 kg (176 lb) 02/26/2025 9:05 AM CDT Height 176.5 cm (5' 9.5 ) 02/26/2012 4:37 PM CDT Body Mass Index - - Plan of Treatment Upcoming Encounters Date Type Department Care Team (Late st Contact Info) Description 06/28/2025 10:00 AM CDT Office Visit [facility] - Neurology [address] [place] [phone] Shira Ogden APRN-CNP [address] [place] [address] [place] [phone] Health Maintenance Due Date Last Done Comments COLOGUARD (AGES 45-75) - COLON CA SCREENING 1960 COLON MONITORING 1960 COLONOSCOPY - COLON CA SCREENING 1962 CT COLONOGRAPHY - COLON CA SCREENING 1960 Colorectal Cancer Screening 1962 FIT - COLON CA SCREENING 1962 FLEX SIG - COLON CA SCREENING 1962 LIPID TESTING 1962 HIV SCREENING 1977 HEPATITIS C SCREENING 04/21/1980 PNEUMOCOCCAL VACCINE 50+ (1 of 1 - PCV) 2012 ZOSTER VACCINE (1 of 2) 2012 DTAP/TDAP/TD VACCINES (2 - Td or Tdap) 06/01/2018 06/01/2008 MAMMOGRAM 01/01/2020 01/01/2018, 12/04, 02/06/2017, Additional history exists COVID-19 VACCINE ( - season) 2024 DEPRESSION SCREENING 12/02/2024 INFLUENZA VACCINE (Season Ended) 2025 09/02/2018, 09/17/2012 Respiratory Syncytial Virus (RSV) Vaccine Pt: or [...] complete this topic MENINGOCOCCAL (Group B) VACCINE SHARED DECISION-MAKING Aged Out No longer eligible based on patient's age to complete this topic MENINGOCOCCAL GROUPS A/C/Y/W VACCINE Aged Out No longer eligible based on patient's age to complete this topic Procedures Procedure Name Priority Date/Time Associated Diagnosis Comments MAMMOGRAPHY ORDER Routine 07/17/2011 from Last 3 Months or Most Recently Relevant to Health Maintenance Results * MAMMOGRAPHY ORDER (07/17/2011) Anatomical Region Laterality Modality Other us Rock Bullock MD MAMMO ORDERABLES Final Result from Last 3 Months or Most Recently Relevant to Health Maintenance Insurance SELF PAY NO INSURANCE Member Subscriber Plan / Payer (Ef fective for All Dates) Name:Zeina Cole Member ID:Not on file Relation to Subscriber:Not on file Name:ZEINA COLE Subscriber ID:Not on file (Home) Address: [facility] [place] [address] Payer ID:Not on file Group ID:Not on file Type:Self Pay Address: [place], [place] * Guarantor: ZEINA COLE Account Type Relation to Patient Date of Phone Billing Address Personal/Family 1960 [address] [place] [address] SELF PAY NO INSURANCE Member Subscriber Plan / Payer (Ef fective for All Dates) Name:Zeina Cole Member ID:Not on file Relation to Subscriber:Not on file Name:ZEINA COLE Subscriber ID:Not on file Address: [place] [address] Payer ID:Not on file Group ID:Not on file Type:Self Pay Address: [place], [place] * Guarantor: ZEINA COLE Account Type Relation to Patient Date of Phone Billing Address Personal/Family 1960 [facility] [place] [address] SELF PAY NO INSURANCE Member Subscriber Plan / Payer (Ef fective for All Dates) Name:Zeina Cole Member ID:Not on file Relation to Subscriber:Not on file Name:ZEINA COLE Subscriber ID:Not on file Address: [facility] [place] [address] Payer ID:Not on file Group ID:Not on file Type:Self Pay Address: [place], [place] * Guarantor: ZEINA COLE Account Type Relation to Patient Date of Phone Billing Address Personal/Family 1960 [facility] [place] [address] SELF PAY NO INSURANCE Member Subscriber Plan / Payer (Ef fective for All Dates) Name:Zeina Cole Member ID:Not on file Relation to Subscriber:Not on file Name:ZEINA COLE Subscriber ID:Not on file Address: [facility] [place] [address] Payer ID:Not on file Group ID:Not on file Type:Self Pay Address: [place], [place] Advance Directives * Full Code (Latest Code Status on File) Date Activated Date Inactivated Comments 01/05/2011 10:10 AM 01/07/2011 11:35 PM * Full Code Date Activated Date Inactivated Comments 01/05/2011 7:44 AM 01/05/2011 10:10 AM * Full Code Date Activated Date Inactivated Comments 01/03/2011 10:33 PM 01/04/2011 8:00 PM Care Teams Vice President Of Engineering Relationship Specialty Start Date End Date Kirsten aEton APRN-IRMA [address] [place] [address] PCP - General Nurse Practitioner 02/26/25
--- OUTSIDE RECORDS SUMMARY | 2025-03-26 12:50 | XMS_ITS | Encounter Summary ---
Author Organization [employer] Address [address] [place] [address] Care Team Providers Care Correction Officer Penitentiary Name Role Phone Tessy Francois DO Primary Care Provider [phone] Encounter Details Date Type Department Care Team (Late st Contact Info) Description 10/07/2008 Outpatient Historical HIS [facility] Madelyn Rae MD [address] [facility] [address] [place] [address] Regional Enteritis of Unspecified Site (CMS/HCC) Social History Tobacco Use Types Packs/Day Years Used Date Smoking Tobacco: Never Assessed Comments Unknown Sex and Gender Information Value Date Recorded Sex Assigned at Not on file Legal Sex Female 5:28 AM OCCUPATIONAL HEALTH PHYSIOTHERAPIST Gender Identity Not on file Sexual Orientation Not on file documented as of this encounter Plan of Treatment Not on file documented as of this encounter Procedures Procedure Name Priority Date/Time Associated Diagnosis Comments PATHOLOGY Routine 10/07/2008 3:22 PM OCCUPATIONAL HEALTH PHYSIOTHERAPIST STOOL CULTURE (SILVANO,SHIG,CAMPY,ECO 157) Routine 10/07/2008 3:17 PM OCCUPATIONAL HEALTH PHYSIOTHERAPIST C. DIFFICILE DETECTION Routine 10/07/2008 3:17 PM OCCUPATIONAL HEALTH PHYSIOTHERAPIST OVA AND PARASITE SCREEN Routine 10/07/2008 3:17 PM OCCUPATIONAL HEALTH PHYSIOTHERAPIST POC , URINE Routine 10/07/2008 1:40 PM OCCUPATIONAL HEALTH PHYSIOTHERAPIST documented in this encounter Results * PATHOLOGY (10/07/2008 3:22 PM OCCUPATIONAL HEALTH PHYSIOTHERAPIST) FINAL REPORT [facility] [address] [place], [place] [address] Patient: ZEINA COLE : 1960 Procedure Date: 10/07/2008 Accession Date: 10/07/2008 Case No: [id number] Ordering Dr: MADELYN RAE Case types AW, BW, FW, NW and SH are performed by [facility] [place], [place] SURGICAL PATHOLOGY & NON-GYNECOLOGIC CYTOPATHOLOGY REPORT [...] 04:36 pm Microscopic: The slides are labeled [id number], Zeina Cole. Sections of the left colon [...] 09:19 am INTERFACE SYSTEM 10/07/2008 3:22 PM OCCUPATIONAL HEALTH PHYSIOTHERAPIST us Madelyn Rae MD PATHOLOGY/CYTOLOGY ORDERABLE S Final Result INTERFACE SYSTEM Refer to clinic/hospital department * OVA AND PARASITE SCREEN (10/07/2008 3:17 PM OCCUPATIONAL HEALTH PHYSIOTHERAPIST) PRELIMINARY REPORT Pending [facility] FINAL REPORT Concentration : No ova or parasites seen. Trichrome: No ova or parasites seen. [facility] 10/07/2008 3:17 PM OCCUPATIONAL HEALTH PHYSIOTHERAPIST 10/07/2008 4:43 PM OCCUPATIONAL HEALTH PHYSIOTHERAPIST Narrative INTERFACE SYSTEM - 10/14/2008 10:48 AM OCCUPATIONAL HEALTH PHYSIOTHERAPIST fax to dr rae [facility] by [facility], [address] [place] [address] Performed by [employer] [address] Madelyn Rae MD MICROBIOLOGY - GENERAL ORDER DIVINE Final Result Performing Organization Address [facility] Phone Number INTERFACE SYSTEM Refer to clinic/hospital department [facility] CLIA# [id number] [address] [place] [address] * STOOL CULTURE (SILVANO,SHIG,CAMPY,[id number]) (10/07/2008 3:17 PM OCCUPATIONAL HEALTH PHYSIOTHERAPIST) PRELIMINARY REPORT No Salmonella isolated. No Shigella isolated. No Escherichia coli serogroup O157:H7 isolated. [facility] FINAL REPORT No Salmonella isolated. No Shigella isolated. No Escherichia coli serogroup O157:H7 isolated. No Camplylobacter isolated. [facility] 10/07/2008 3:17 PM OCCUPATIONAL HEALTH PHYSIOTHERAPIST 10/07/2008 4:43 PM OCCUPATIONAL HEALTH PHYSIOTHERAPIST Narrative INTERFACE SYSTEM - 10/10/2008 7:51 AM OCCUPATIONAL HEALTH PHYSIOTHERAPIST fax to dr rae Madelyn Rae MD MICROBIOLOGY - GENERAL ORDER DIVINE Final Result Performing Organization Address [facility] Co de Phone Number INTERFACE SYSTEM Refer to clinic/hospital department [facility] CLIA# [id number] [address] [place] [address] * CLOSTRIDIUM DIFFICILE TOXIN (10/07/2008 3:17 PM OCCUPATIONAL HEALTH PHYSIOTHERAPIST) FINAL REPORT NO Clostridium difficile Toxin A or B detected by EIA. A negative result does not rule out C. difficile associated diarrhea or colitis. [facility] Stool specimen (specimen) 10/07/2008 3:17 PM OCCUPATIONAL HEALTH PHYSIOTHERAPIST 10/07/2008 4:43 PM OCCUPATIONAL HEALTH PHYSIOTHERAPIST Narrative INTERFACE SYSTEM - 10/08/2008 3:11 PM OCCUPATIONAL HEALTH PHYSIOTHERAPIST fax to dr rae Madelyn Rae MD MICROBIOLOGY - GENERAL ORDER DIVINE Final Result Performing Organization Address [facility] de Phone Number INTERFACE SYSTEM Refer to clinic/hospital department [facility] CLIA# [id number] [address] [place] [place] [address] * POC , URINE (10/07/2008 1:40 PM OCCUPATIONAL HEALTH PHYSIOTHERAPIST) , URINE POC Negative Negative [facility] Urine specimen (specimen) 10/07/2008 1:40 PM OCCUPATIONAL HEALTH PHYSIOTHERAPIST 10/07/2008 1:40 PM OCCUPATIONAL HEALTH PHYSIOTHERAPIST Madelyn Rae MD POINT OF CARE TESTING Final Result Performing Organization Address [facility] de Phone Number INTERFACE SYSTEM Refer to clinic/hospital department [facility] CLIA# [id number] [address] [place] [address] documented in this encounter Visit Diagnoses Diagnosis Regional enteritis of unspecified site (CMS/HCC) Regional enteritis of unspecified site documented in this encounter Care Teams Correction Officer Penitentiary Relationship Specialty Start Date End Date Tessy Francois DO [address] [place] [address] PCP - General 11/17/15 documented as of this encounter
--- OUTSIDE RECORDS SUMMARY | 2025-03-26 12:50 | XMS_ITS | Encounter Summary ---
Author Organization [employer] Address [address] [place] [address] Care Team Providers Care Sales Secretary Name Role Phone Tessy Francois DO Primary Care Provider [phone] [phone] Encounter Details Date Type Department Care Team (Late st Contact Info) Description 08/29/2007 Outpatient Historical [facility] [address] [place] [address] Tristan Hyman MD NO ADDRESS ON FILE Social History Tobacco Use Types Packs/Day Years Used Date Smoking Tobacco: Never Assessed Comments Unknown Sex and Gender Information Value Date Recorded Sex Assigned at Not on file Legal Sex Female 5:28 AM DIGITAL COMPOSER Gender Identity Not on file Sexual Orientation Not on file documented as of this encounter Plan of Treatment Not on file documented as of this encounter Visit Diagnoses Not on filedocumented in this encounter Care Teams Sales Secretary Relationship Specialty Start Date End Date Tessy Francois DO [address] [place] [address] PCP - General 11/17/15 documented as of this encounter
--- OUTSIDE RECORDS SUMMARY | 2025-03-26 12:50 | XMS_ITS | Encounter Summary ---
Author Organization [facility] Address [address] [place] [address] Care Team Providers Care Pick Up Man Name Role Phone FrancoisTessy verduzco Primary Care Provider [phone] [phone] Encounter Details Date Type Department Care Team (Latest Contact Info) Description 10/23/2008 Outpatient Historical [facility] Sujatha Ledesma MD [address] [place] [address] Functional Diarrhea Social History Tobacco Use Types Packs/Day Years Used Date Smoking Tobacco: Never Assessed Comments Unknown Sex and Gender Information Value Date Recorded Sex Assigned at Not on file Legal Sex Female 5:28 AM FAMILY LIFE EDUCATOR Gender Identity Not on file Sexual Orientation Not on file documented as of this encounter Plan of Treatment Not on file documented as of this encounter Procedures Procedure Name Priority Date/Time Associated Diagnosis Comments C-REACTIVE PROTEIN Routine 10/23/2008 8: 19 AM FAMILY LIFE EDUCATOR documented in this encounter Results * C-REACTIVE PROTEIN (10/23/2008 8:19 AM FAMILY LIFE EDUCATOR) CRP 0.2 0.0 - 0.8 mg/dL [facility] Blood specimen (specimen) 10/23/2008 8:19 AM FAMILY LIFE EDUCATOR 10/23/2008 9:00 AM FAMILY LIFE EDUCATOR us Sujatha Prado MD CHEMISTRY ORDERABLES Final Resu lt INTERFACE SYSTEM Refer to clinic/hospital department [facility] CLIA# [id number] [address] [place] [address] documented in this encounter Visit Diagnoses Diagnosis Functional diarrhea documented in this encounter Care Teams Pick Up Man Relationship Specialty Start Date End Date Tessy Francois DO [address] [place] [phone] PCP - General 11/17/15 documented as of this encounter
--- OUTSIDE RECORDS SUMMARY | 2025-03-26 12:50 | XMS_ITS | Encounter Summary ---
Author Organization [employer] Address 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 Gender Identity Not on file Sexual [...] AM CDT Narrative 09/28/2008 11:12 AM CDT [facility] [address] [place], [place] [address] Admit Date: 09/24/2008 ZEINA COLE Sex: F Admit Prov: NADIA SARABIA Date: 1960 Primary Care Prov: NADIA SARABIA CMRN: [id number] Room: [facility] SSN: [id number] IMAGING SERVICES Ordering Prov: N/A Accession Number: [id number] Interpretation SMALL BOWEL SERIES, 09/28/2008 Clinical History: Crohn's disease, right lower quadrant abdominal pain, possible jejunal intussusception seen on recent abdominal CT. Findings: A preliminary abdominal rivet tester radiograph is not remarkable. Following oral administration [...] Procedure Note Tristan Cates MD - 09/28/2008 [facility] [address] [place], [place] [address] Admit Date: 09/24/2008 COLE ZEINA Carolina Sex: F Admit Prov: NADIA SARABIA Date: 1960 Primary Care Prov: NADIA SARABIA CMRN: [id number] Room: [facility] SSN: [id number] IMAGING SERVICES Ordering Prov: N/A Interpretation SMALL BOWEL SERIES, 09/28/2008 Clinical History: Crohn's disease, right lower quadrant abdominalpain, possible jejunal intussusception seen on recent abdominal CT. Findings: A preliminary abdominal rivet tester radiograph is notremarkable. Following oral administration of [...] 104 U/L [facility] ALT 14 0 - 31 U/L [facility] CHLORIDE 98 96 - 108 mmol/L [facility] AST 15 12 - 32 U/L [facility] BUN 7 6 - 20 mg/dL [facility] TOTAL PROTEIN 6.5 6.3 - 8.6 g/dL [facility] BILIRUBIN TOTAL 0.3 0.2 - 1.0 mg/dL [facility] CREATININE 0.76 0.51 - 0.95 mg/dL [facility] CO2 27 22 - 30 mmol/L [facility] ALBUMIN 3.7 3.4 - 4.8 g/dL [facility] SODIUM 132(L) 135 - 145 mmol/L [facility] CALCIUM 8.8 8.6 - 10.2 mg/dL [facility] GLUCOSE 123(H) 65 - 99 mg/dL [facility] POTASSIUM 3.2(L) 3.5 - 4.9 mmol/L [facility] GFR, >60 >=60 mL/min/1. 7 sq meter [facility] GFR >60 >=60 mL/min/1. 7 sq meter [facility] Comment: Modification of Diet in Renal Disease (MDRD) study formula. Estimated GFR rate interpretative information for both Americans and non- Americans is available on the [facility] Intranet at: [email or web address] Select: Lab Policies and Procedures Select: Reference Ranges - GFR Blood specimen (specimen) 09/24/2008 2:27 PM CDT 09/24/2008 2:33 PM CDT Nadia Sarabia MD CHEMISTRY ORDERABLES Edited INTERFACE SYSTEM Refer to clinic/hospital department [facility] CLIA# [id number] [address] [facility] [address] [place] [address] * (ABNORMAL) CBC WITH DIFFERENTIAL (09/24/2008 2:27 PM CDT) WBC 8.0 4.0 - 9.8 K/uL [facility] MCH 32.1 27.2 - 32.6 pg [facility] MPV 10.2 9.3 - 12.4 fL [facility] HEMATOCRIT 38.8 35.5 - 44.0 % [facility] RDW-STDEV 43.3 37.1 - 48.7 fL [facility] RBC 4.02 3.90 - 4.90 M/uL [facility] MCHC 33.2 31.5 - 35.5 % [facility] MCV 96.5 82.0 - 99.0 fL [facility] PLATELETS 312 140 - 350 K/uL [facility] HEMOGLOBIN 12.9 11.8 - 14.8 g/dL [facility] RDW 12.3 11.5 - 14.5 % [facility] MONOCYTES 9 3 - 13 % [facility] MONOCYTE ABSOLUTE 0.75 0.10 - 1.30 K/uL [facility] NEUTROPHILS 71(H) 45 - 70 % [facility] NEUTROPHIL ABSOLUTE 5.70 1.90 - 7.00 K/uL [facility] EOSINOPHILS 3 0 - 7 % [facility] EOSINOPHIL ABSOLUTE 0.20 0.00 - 0.70 K/uL [facility] LYMPHOCYTES 16 16 - 45 % [facility] LYMPHOCYTE ABSOLUTE 1.30 0.70 - 4.50 K/uL [facility] BASOPHILS 1 0 - 2 % [facility] BASOPHILS ABSOLUTE 0.05 0.00 - 0.20 K/uL [facility] Blood specimen (specimen) 09/24/2008 2:27 PM CDT 09/24/2008 2:33 PM CDT us Nadia Sarabia MD HEMATOLOGY ORDERABLES Edited INTERFACE SYSTEM Refer to clinic/hospital department [facility] CLIA# [id number] [address] [facility] [address] [place] [address] [address] * CT ABDOMEN PELVIS W CONTRAST (09/24/2008 2:12 PM CDT) Anatomical Region Laterality Modality Abdomen Other 09/24/2008 2:12 PM CDT Narrative 09/24/2008 4:46 PM CDT [facility] [address] [place], [place] [address] Admit Date: 09/24/2008 ZEINA COLE Sex: F Admit Prov: NADIA SARABIA Date: 1960 Primary Care Prov: NADIA SARABIA CMRN: [id number] Room: [facility] SSN: [id number] IMAGING SERVICES Ordering Prov: N/A Accession Number: [id number] Interpretation CT SCAN OF THE ABDOMEN AND [...] Procedure Note Olimpia Cavanaugh MD - 09/24/2008 [facility] [address] [place], [place] [address] Admit Date: 09/24/2008 ZEINA COLE Sex: F Admit Prov: NADIA SARABIA Date: 1960 Primary Care Prov: NADIA SARABIA CMRN: [id number] Room: [facility] SSN: [id number] IMAGING SERVICES Ordering Prov: N/A Interpretation CT [...] 1.3 mg/dL [facility] GFR, >60 >=60 mL/min/1.7 sq meter [facility] GFR >60 >=60 mL/min/1.7 sq meter [facility] Capillary blood specimen (specimen) 09/24/2008 2:05 PM CDT 09/24/2008 2:05 PM CDT us Nadia Sarabia MD POINT OF CARE TESTING Edited INTERFACE SYSTEM Refer to clinic/hospital department [facility] CLIA# [id number] [address] [place] [address] documented in this encounter Visit Diagnoses Not on filedocumented in this encounter Care Teams Certified Physician Assistant Relationship Specialty Start Date End Date Tessy Francois DO [address] [place] [address] PCP - General 11/17/15 documented as of this encounter
--- OUTSIDE RECORDS SUMMARY | 2025-03-26 12:50 | XMS_ITS | Encounter Summary ---
Author Organization [facility] Address [address] [place] [address] Care Team Providers Care Gaming Department Head Name Role Phone PriscilaTessy Primary Care Provider +1 [phone] Encounter Details Date Type Department Care Team (Late Contact Info) Description 10/23/2008 Outpatient Historical [facility] Sarabia, MD Mago Social History Tobacco Use Types Packs/Day Years Used Date Smoking Tobacco: Never Assessed Comments Unknown Sex and Gender Information Value Date Recorded Sex Assigned at Not on file Legal Sex Female 5:28 AM CHERRY GROWER Gender Identity Not on file Sexual Orientation Not on file documented as of this encounter Plan of Treatment Not on file documented as of this encounter Procedures Procedure Name Priority Date/Time Associated Diagnosis Comments GLUCOSE TOLERANCE, 2 HR Routine 10/23/2008 10:30 AM CHERRY GROWER GLUCOSE FARHAT NON-GEST FOR DIABETES 2 HR Routine 10/23/2008 10:30 AM CHERRY GROWER GLUCOSE TOLERANCE, FASTING Routine 10/23/2008 8:18 AM CHERRY GROWER BASIC METABOLIC PANEL Routine 10/23/2008 8:18 AM CHERRY GROWER documented in this encounter Results * GLUCOSE FARHAT NON-GEST FOR DIABETES 2 HR (10/23/2008 10:30 AM CHERRY GROWER) COMMENT See Additional Orderables [facility] Blood specimen (specimen) 10/23/2008 10:30 AM CHERRY GROWER 10/23/2008 10:32 AM CHERRY GROWER Mago Sarabia MD CHEMISTRY ORDERABLES Final R esult Performing Organization Address [facility] de Phone Number INTERFACE SYSTEM Refer to clinic/hospital department [facility] CLIA# [id number] [address] [place] [address] * GLUCOSE TOLERANCE, 2 HR (10/23/2008 10:30 AM CHERRY GROWER) GLUCOSE, 2HR 135 <=139 mg/dL [facility] Blood specimen (specimen) 10/23/2008 10:30 AM CHERRY GROWER 10/23/2008 10:32 AM CHERRY GROWER Mago Sarabia MD CHEMISTRY ORDERABLES Final R [facility] Performing Organization Address [facility] Phone Number INTERFACE SYSTEM Refer to clinic/hospital department [facility] CLIA# [id number] [address] [place] [address] * BASIC METABOLIC PANEL (10/23/2008 8:18 AM CHERRY GROWER) CHLORIDE 103 96 - 108 mmol/L [facility] GLUCOSE 86 65 - 99 mg/dL [facility] SODIUM 141 135 - 145 mmol/L [facility] CALCIUM 8.6 8.6 - 10.2 mg/dL [facility] CO2 28 22 - 30 mmol/L [facility] CREATININE 0.80 0.51 - 0.95 mg/dL [facility] POTASSIUM 3.9 3.5 - 4.9 mmol/L [facility] BUN 11 6 - 20 mg/dL [facility] GFR, >60 >=60 mL/min/1.7 sq meter [facility] GFR >60 >=60 mL/min/1.7 sq meter [facility] Comment: ansiModification of Diet in Renal Disease (MDRD) study formula. Estimated GFR rate interpretative information for both Americans and non- Americans is available on the [facility] Intranet at: [email or web address] Select: Lab Policies and Procedures Select: Reference Ranges - GFR Blood specimen (specimen) 10/23/2008 8:18 AM CHERRY GROWER 10/23/2008 9:00 AM CHERRY GROWER Mago Sarabia MD CHEMISTRY ORDERABLES Edited Performing Organization Address [facility] de Phone Number INTERFACE SYSTEM Refer to clinic/hospital department [facility] CLIA# [id number] [address] [place] [address] * GLUCOSE TOLERANCE, FASTING (10/23/2008 8:18 AM CHERRY GROWER) GTT INTERP, NON-GESTATION AL Based on 75 g dose: Type 1 or 2 Diabetes Mellitus Criteria: Fasting (Baseline): > = 126 mg/dL or 2 hour specimen: > = 200 mg/dL Impaired Glucose Metabolism Criteria: Fasting (Baseline): 100 - 125 mg/dL 2 hour specimen: 140 - 199 mg/dL [facility] GLUCOSE FASTING 86 <=99 mg/dL [facility] Blood specimen (specimen) 10/23/2008 8:18 AM CHERRY GROWER 10/23/2008 9:00 AM CHERRY GROWER us Mago Sarabia MD CHEMISTRY ORDERABLES Final R esult Performing Organization Address [facility] de Phone Number INTERFACE SYSTEM Refer to clinic/hospital department [facility] CLIA# [id number] [address] [place] [address] documented in this encounter Visit Diagnoses Not on filedocumented in this encounter Care Teams Gaming Department Head Relationship Specialty Start Date End Date Tessy Francois DO [address] [place] [address] PCP - General 11/17/15 documented as of this encounter
--- OUTSIDE RECORDS SUMMARY | 2025-03-26 12:50 | XMS_ITS | Encounter Summary ---
Author Organization [employer] Address [address] [place] [address] Care Team Providers Care Management Scientist Name Role Phone Priscila Tessy Britte Primary Care Provider [phone] Encounter Details Date Type Department Care Team [...] on file Legal Sex Female 5:28 AM WASTE REDUCTION COORDINATOR Gender Identity Not on file Sexual Orientation Not on file documented as of this encounter Plan of Treatment Not on file documented as of this encounter Procedures Procedure Name Priority Date/Time Associated Diagnosis Comments CT HEAD WO CONTRAST Routine 12/29/2008 4 :15 PM WASTE REDUCTION COORDINATOR CBC WITH DIFFERENTIAL Stat 12/29/2008 2:48 PM WASTE REDUCTION COORDINATOR C-REACTIVE PROTEIN Stat 12/29/2008 2: 48 PM WASTE REDUCTION COORDINATOR COMPREHENSIVE METABOLIC PANEL Stat 12/29/2008 2:48 PM WASTE REDUCTION COORDINATOR documented in this encounter Results * CT HEAD WO CONTRAST (12/29/2008 4:15 PM WASTE REDUCTION COORDINATOR) Anatomical Region Laterality Modality Head Other 12/29/2008 4:15 PM WASTE REDUCTION COORDINATOR Narrative 12/29/2008 4:28 PM [facility] [address] [place], [place] [address] Admit Date: 12/29/2008 ZEINA COLE Sex: F Admit Prov: ER, AUTHORIZED P Date: 1960 Primary Care Prov: NADIA PEÑALOZA CMRN: [id number] [id number] Ordering Prov: N/A Accession Number: [id number] Interpretation CT head without contrast 12/29/2008.. History: [...] 12/29/2008 16:27 Procedure Note Meg Cheung 12/29/2008 [facility] [address] [place], [place] [address] Admit Date: 12/29/2008 ZEINA COLE Sex: F Admit Prov: ER, AUTHORIZED P Date: 1960 Primary Care Prov: NADIA PEÑALOZA CMRN: [id number] [id number] [facility] Ordering Prov: N/A Interpretation CT [...] Result * C-REACTIVE PROTEIN (12/29/2008 2:48 PM WASTE REDUCTION COORDINATOR) CRP 0.3 0.0 - 0.8 mg/dL [facility] Blood specimen (specimen) 12/29/2008 2:48 PM WASTE REDUCTION COORDINATOR 12/29/2008 3:01 PM WASTE REDUCTION COORDINATOR Manjit Mendiola MD CHEMISTRY ORDERABLES Final R esult INTERFACE SYSTEM Refer to clinic/hospital department [facility] CLIA# [id number] [address] [place] [address] * (ABNORMAL) COMPREHENSIVE METABOLIC PANEL (12/29/2008 2:48 PM WASTE REDUCTION COORDINATOR) CREATININE 0.67 0.51 - 0.95 mg/dL [facility] SODIUM 136 135 - 145 mmol/L [facility] ALT 26 0 - 31 U/L [facility] ALKALINE PHOSPHATASE 46 35 - 104 U/L [facility] BILIRUBIN TOTAL 0.4 0.2 - 1.0 mg/dL [facility] CO2 26 22 - 30 mmol/L [facility] TOTAL PROTEIN 6.6 6.3 - 8.6 g/dL [facility] POTASSIUM 4.0 3.5 - 4.9 mmol/L [facility] GLUCOSE 119(H) 65 - 99 mg/dL [facility] AST 22 12 - 32 U/L [facility] BUN 8 6 - 20 mg/dL [facility] CALCIUM 9.3 8.6 - 10.2 mg/dL [facility] CHLORIDE 101 96 - 108 mmol/L [facility] ALBUMIN 4.0 3.4 - 4.8 g/dL [facility] GFR, [...] [facility] Intranet at: [email or web address] Select: Lab Policies and Procedures Select: Reference Ranges - GFR Blood specimen (specimen) 12/29/2008 2:48 PM WASTE REDUCTION COORDINATOR 12/29/2008 3:01 PM WASTE REDUCTION COORDINATOR us Manjit Mendiola MD CHEMISTRY ORDERABLES Edited INTERFACE SYSTEM Refer to clinic/hospital department [facility] CLIA# [id number] [address] [place], [place] [address] * (ABNORMAL) CBC WITH DIFFERENTIAL (12/29/2008 2:48 PM WASTE REDUCTION COORDINATOR) RDW-STDEV 43.8 37.1 - 48.7 fL [facility] RBC 4.38 3.90 - 4.90 M/uL [facility] MCHC 33.8 31.5 - 35.5 % [facility] MCV 95.2 82.0 - 99.0 fL [facility] PLATELETS 304 140 - 350 K/uL [facility] HEMOGLOBIN 14.1 11.8 - 14.8 g/dL [facility] RDW 12.6 11.5 - 14.5 % [facility] WBC 11.0(H) 4.0 - 9.8 K/uL [facility] MCH 32.2 27.2 - 32.6 pg [facility] MPV 10.2 9.3 - 12.4 fL [facility] HEMATOCRIT 41.7 35.5 - 44.0 % [facility] MONOCYTES 4 3 - 13 % [facility] MONOCYTE ABSOLUTE 0.47 0.10 - 1.30 K/uL [facility] NEUTROPHILS 78(H) 45 - 70 % [facility] NEUTROPHIL ABSOLUTE 8.58(H) 1.90 - 7.00 K/uL [facility] EOSINOPHILS 1 0 - 7 % [facility] EOSINOPHIL ABSOLUTE 0.05 0.00 - 0.70 K/uL [facility] LYMPHOCYTES 17 16 - 45 % [facility] LYMPHOCYTE ABSOLUTE 1.89 0.70 - 4.50 K/uL [facility] BASOPHILS 0 0 - 2 % [facility] BASOPHILS ABSOLUTE 0.03 0.00 - 0.20 K/uL [facility] Blood specimen (specimen) 12/29/2008 2:48 PM WASTE REDUCTION COORDINATOR 12/29/2008 3:01 PM WASTE REDUCTION COORDINATOR us Manjit Mendiola MD HEMATOLOGY ORDERABLES Edited INTERFACE SYSTEM Refer to clinic/hospital department [facility] CLIA# [id number] [address] [place] [address] documented in this encounter Visit Diagnoses Not on filedocumented in this encounter Care Teams Management Scientist Relationship Specialty Start Date End Date Tessy Francois DO [address] [place] [address] PCP - General 11/17/15 documented as of this encounter
[2025-03-26 19:31] LABS: Add Urine Microscopic? YES; Appearance Urine Clear (Clear); Bacteria Urine 2+ /hpf; Bilirubin Urine Negative (Negative); Blood Urine 1+ (Negative); Color Urine Yellow (Yellow); Glucose Urine UA Negative (Negative); Ketones Urine Negative (Negative); Leukocyte Esterase Ur Trace LEU/UL (Negative); Nitrate Urine Negative (Negative); Non Pathogenic Casts 0-2; Protein Urine Negative (Negative); RBC Urine 0-2 /hpf (0-2); Specific Grav Ur 1.015 (1.001-1.035); Squamous Epithelial Cell Urine Few /hpf (Few); Urobilinogen Urine 0.2 mg/dL (<2.0)
== END 2025-03-26 12:46 | disposition home or self-care (01) ==
LOC: ANHGOSHLAB 12:45
PROVIDERS: PCP Internal Medicine; Visit Provider Nurse Practitioner
DX: R39.15 Urgency of urination (principal)
CPT/HCPCS: 81001; 87077; 87086; 87186

== ENCOUNTER 2025-09-30 15:41 | Outpatient (CLI) | payer BC, SELFPAY ==
--- OUTSIDE RECORDS SUMMARY | 2025-09-30 15:48 | XMS_ITS | Encounter Summary ---
Author Organization [facility] Address [address] [place] [address] Care Team Providers Care Drone Operator Name Role Phone FrancoisTessy verduzco Primary Care Provider [phone] Encounter Details Date Type Department Care Team (Latest Contact Info) Description 12/06/2008 Outpatient Historical [facility] Sujatha Ledesma MD [address] [place] [address] Regional Enteritis of Large Intestine (CMS/HCC) Social History Tobacco Use Types Packs/Day Years Used Date Smoking Tobacco: Never Assessed Comments Unknown Sex and Gender Information Value Date Recorded Sex Assigned at Not on file Legal Sex Female 5:28 AM ASSOCIATE PROFESSOR OF LITERATURE Gender Identity Not on file Sexual Orientation Not on file documented as of this encounter Plan of Treatment Not on file documented as of this encounter Procedures Procedure Name Priority Date/Time Associated Diagnosis Comments MISCELLANEOUS LAB TEST Routine 9 10:17 AM ASSOCIATE PROFESSOR OF LITERATURE documented in this encounter Results * MISCELLANEOUS LAB TEST (12/06/2008 10:17 AM ASSOCIATE PROFESSOR OF LITERATURE) TEST NAME [facility] SPECIMEN TYPE Blood [facility] MISCELLANEOUS LAB TEST Name of Test: TPMT Test Result: TPMT*1/TPMT*1 Alleles present are associated with Normal Enzyme Activity Reference Range: TPMT*1/TPMT*1 Test Performed By: [employer] [place], [place] [facility] Specimen of unknown material (specimen) 12/06/2008 10:17 AM ASSOCIATE PROFESSOR OF LITERATURE 12/06/2008 10:34 AM ASSOCIATE PROFESSOR OF LITERATURE Narrative INTERFACE SYSTEM - 12/09/2008 8:39 AM ASSOCIATE PROFESSOR OF LITERATURE Name of test:tpmt genotype us Sujatha Prado MD CHEMISTRY ORDERABLES Edited INTERFACE SYSTEM Refer to clinic/hospital department [facility] CLIA# [id number] [address] [place] [address] documented in this encounter Visit Diagnoses Diagnosis Regional enteritis of large intestine documented in this encounter Care Teams Drone Operator Relationship Specialty Start Date End Date Tessy Francois DO [address] [place] [phone] PCP - General 11/17/15 documented as of this encounter
--- OUTSIDE RECORDS SUMMARY | 2025-09-30 15:48 | XMS_ITS | Encounter Summary ---
Author Organization [facility] Address [address] [place] [address] Care Team Providers Care Employee Counselor Name Role Phone FrancoisTessy verduzco Primary Care Provider [phone] [phone] Encounter Details Date Type Department Care Team (Latest Contact Info) Description 10/23/2008 Outpatient Historical HIS [facility] Sujatha Ledesma MD [address] [place] [address] Functional Diarrhea Social History Tobacco Use Types Packs/Day Years Used Date Smoking Tobacco: Never Assessed Comments Unknown Sex and Gender Information Value Date Recorded Sex Assigned at Not on file Legal Sex Female 5:28 AM HEALTH SERVICES ADMINISTRATOR Gender Identity Not on file Sexual Orientation Not on file documented as of this encounter Plan of Treatment Not on file documented as of this encounter Procedures Procedure Name Priority Date/Time Associated Diagnosis Comments C-REACTIVE PROTEIN Routine 10/23/2008 8: 19 AM HEALTH SERVICES ADMINISTRATOR documented in this encounter Results * C-REACTIVE PROTEIN (10/23/2008 8:19 AM HEALTH SERVICES ADMINISTRATOR) CRP 0.2 0.0 - 0.8 mg/dL [facility] Blood specimen (specimen) 10/23/2008 8:19 AM HEALTH SERVICES ADMINISTRATOR 10/23/2008 9:00 AM HEALTH SERVICES ADMINISTRATOR us Sujatha Prado MD CHEMISTRY ORDERABLES Final Resu lt INTERFACE SYSTEM Refer to clinic/hospital department [facility] CLIA# [id number] [address] [place] [address] documented in this encounter Visit Diagnoses Diagnosis Functional diarrhea documented in this encounter Care Teams Employee Counselor Relationship Specialty Start Date End Date Tessy Francois DO [address] [place] [phone] PCP - General 11/17/15 documented as of this encounter
--- OUTSIDE RECORDS SUMMARY | 2025-09-30 15:48 | XMS_ITS | Encounter Summary ---
Author Organization [employer] Address [address] [place] [address] Care Team Providers Care Securities Settlement Processor Name Role Phone Tessy Francois DO Primary Care Provider [phone] [phone] Encounter Details Date Type Department Care Team (Late st Contact Info) Description 10/07/2008 Outpatient Historical HIS [facility] Madelyn Rae MD [address] [facility] [address] [place] [address] Regional Enteritis of Unspecified Site (CMS/HCC) Social History Tobacco Use Types Packs/Day Years Used Date Smoking Tobacco: Never Assessed Comments Unknown Sex and Gender Information Value Date Recorded Sex Assigned at Not on file Legal Sex Female 5:28 AM OUTSIDE SALES ACCOUNT EXECUTIVE Gender Identity Not on file Sexual Orientation Not on file documented as of this encounter Plan of Treatment Not on file documented as of this encounter Procedures Procedure Name Priority Date/Time Associated Diagnosis Comments PATHOLOGY Routine 10/07/2008 3:22 PM OUTSIDE SALES ACCOUNT EXECUTIVE STOOL CULTURE (SILVANO,SHIG,CAMPY,ECO 157) Routine 10/07/2008 3:17 PM OUTSIDE SALES ACCOUNT EXECUTIVE C. DIFFICILE DETECTION Routine 10/07/2008 3:17 PM OUTSIDE SALES ACCOUNT EXECUTIVE OVA AND PARASITE SCREEN Routine 10/07/2008 3:17 PM OUTSIDE SALES ACCOUNT EXECUTIVE POC , URINE Routine 10/07/2008 1:40 PM OUTSIDE SALES ACCOUNT EXECUTIVE documented in this encounter Results * PATHOLOGY (10/07/2008 3:22 PM OUTSIDE SALES ACCOUNT EXECUTIVE) FINAL REPORT [facility] [address] [place], [place] [address] Patient: ZEINA COLE : 1960 Procedure Date: 10/07/2008 Accession Date: 10/07/2008 Case No: [id number] Ordering Dr: MADELYN RAE Case types AW, BW, FW, NW and SH are performed by [facility], [place], [place] SURGICAL PATHOLOGY & NON-GYNECOLOGIC CYTOPATHOLOGY REPORT [...] 04:36 pm Microscopic: The slides are labeled [id number], Zeina Cole. Sections of the left colon [...] 09:19 am INTERFACE SYSTEM 10/07/2008 3:22 PM OUTSIDE SALES ACCOUNT EXECUTIVE us Madelyn Rae MD PATHOLOGY/CYTOLOGY ORDERABLE S Final Result INTERFACE SYSTEM Refer to clinic/hospital department * OVA AND PARASITE SCREEN (10/07/2008 3:17 PM OUTSIDE SALES ACCOUNT EXECUTIVE) PRELIMINARY REPORT Pending [facility] FINAL REPORT Concentration : No ova or parasites seen. Trichrome: No ova or parasites seen. [facility] 10/07/2008 3:17 PM OUTSIDE SALES ACCOUNT EXECUTIVE 10/07/2008 4:43 PM OUTSIDE SALES ACCOUNT EXECUTIVE Narrative INTERFACE SYSTEM - 10/14/2008 10:48 AM OUTSIDE SALES ACCOUNT EXECUTIVE fax to dr rae [facility] by [facility], [address] [place] [address] Performed by [employer] [address] Madelyn Rae MD MICROBIOLOGY - GENERAL ORDER DIVINE Final Result Performing Organization Address [facility] Phone Number INTERFACE SYSTEM Refer to clinic/hospital department [facility] CLIA# [id number] [address] [place] [address] * STOOL CULTURE (SILVANO,SHIG,CAMPY,YEC148) (10/07/2008 3:17 PM OUTSIDE SALES ACCOUNT EXECUTIVE) PRELIMINARY REPORT No Salmonella isolated. No Shigella isolated. No Escherichia coli serogroup O157:H7 isolated. [facility] FINAL REPORT No Salmonella isolated. No Shigella isolated. No Escherichia coli serogroup O157:H7 isolated. No Camplylobacter isolated. [facility] 10/07/2008 3:17 PM OUTSIDE SALES ACCOUNT EXECUTIVE 10/07/2008 4:43 PM OUTSIDE SALES ACCOUNT EXECUTIVE Narrative INTERFACE SYSTEM - 10/10/2008 7:51 AM OUTSIDE SALES ACCOUNT EXECUTIVE fax to dr rae Madelyn Rae MD MICROBIOLOGY - GENERAL ORDER DIVINE Final Result Performing Organization Address [facility] Co de Phone Number INTERFACE SYSTEM Refer to clinic/hospital department [facility] CLIA# [id number] [address] [place] [address] * CLOSTRIDIUM DIFFICILE TOXIN (10/07/2008 3:17 PM OUTSIDE SALES ACCOUNT EXECUTIVE) FINAL REPORT NO Clostridium difficile Toxin A or B detected by EIA. A negative result does not rule out C. difficile associated diarrhea or colitis. [facility] Stool specimen (specimen) 10/07/2008 3:17 PM OUTSIDE SALES ACCOUNT EXECUTIVE 10/07/2008 4:43 PM OUTSIDE SALES ACCOUNT EXECUTIVE Narrative INTERFACE SYSTEM - 10/08/2008 3:11 PM OUTSIDE SALES ACCOUNT EXECUTIVE fax to dr rae Madelyn Rae MD MICROBIOLOGY - GENERAL ORDER DIVINE Final Result Performing Organization Address [facility] de Phone Number INTERFACE SYSTEM Refer to clinic/hospital department [facility] CLIA# [id number] [address] [place] [address] * POC , URINE (10/07/2008 1:40 PM OUTSIDE SALES ACCOUNT EXECUTIVE) , URINE POC Negative Negative [facility] Urine specimen (specimen) 10/07/2008 1:40 PM OUTSIDE SALES ACCOUNT EXECUTIVE 10/07/2008 1:40 PM OUTSIDE SALES ACCOUNT EXECUTIVE Madelyn Rae MD POINT OF CARE TESTING Final Result Performing Organization Address [facility] de Phone Number INTERFACE SYSTEM Refer to clinic/hospital department [facility] CLIA# [id number] [address] [place] [address] documented in this encounter Visit Diagnoses Diagnosis Regional enteritis of unspecified site (CMS/HCC) Regional enteritis of unspecified site documented in this encounter Care Teams Securities Settlement Processor Relationship Specialty Start Date End Date Tessy Francois DO [address] [place] [address] PCP - General 11/17/15 documented as of this encounter
--- OUTSIDE RECORDS SUMMARY | 2025-09-30 15:48 | XMS_ITS | Clinical Summary ---
Author Organization [facility] Administrative Offices Address [address] [place] [address] Care Team Providers Care Sports Book Writer Name Role Phone Tessy Francois DO Primary Care Provider [phone] [phone] Allergies Active Allergy Reactions Criticality Noted Date Comments Cephalexin Anaphylaxis High 02/26/2013 Ciprofloxacin Unknown 02/26/2013 Hydrocodone Itching Low 04/01/2014 Unclassified Drug Seizure High 05/16/2017 spirolactine Medications FLUoxetine (PROZAC) 20 mg Oral tablet Take 1 Tab by mouth daily. 30 Tab 11 3 Active azaTHIOprine (IMURAN) 50 mg Oral tablet 3 Active NASCOBAL 500 mcg Both Nostril [place] 3 Active DELZICOL 400 mg Oral CpDR [...] migh t be different from the original. Directional Survey Drafter - Dr Shashank Rodriguez Problem Noted Date Diagnosed Date Menopausal symptoms 04/04/2015 Crohn disease 08/11/2013 S/P AJCK-BSO 08/11/2013 S/P shoulder surgery 08/11/2013 Overview (08/11/2013): [...] on file Legal Sex Female 5:28 AM ROLLING ATTENDANT Gender Identity Not on file Sexual Orientation Not on file Occupation Industry Job Start Date Job End Date Not on file Not on file Not on file Not on file Last Filed Vital Signs Vital Sign Reading Time Taken Comments Blood Pressure 136/72 12/30/2017 8:37 AM ROLLING ATTENDANT Pulse 71 05/16/2017 10:45 AM CDT Temperature - - Respiratory Rate 17 08/11/2013 11:39 AM CDT Oxygen Saturation - - Inhaled Oxygen Concentration - - Weight 73.5 kg (162 lb) 12/30/2017 8:37 AM ROLLING ATTENDANT Height 171.5 cm (5' 7.5) 12/30/2017 8:37 AM ROLLING ATTENDANT Body Mass Index 25 12/30/2017 8:37 AM ROLLING ATTENDANT Plan of Treatment Health Maintenance Due [...] 07/20/2015, Additional history exists INFLUENZA VACCINE (#1) 2025 09/17/2012 RSV VACCINE (60+ or ) (1 - 1-dose 75+ series) 2037 Procedures Procedure Name Priority Date/Time Associated Diagnosis Comments MAMMO DIAGNOSTIC BILATERAL W OR WO CAD Routine 01/01/2018 10:27 AM ROLLING ATTENDANT Nipple discharge, bloody POC OCCULT BLOOD 1 CARD Routine 04/01/2014 1:30 PM CDT Routine gynecological examination from Last 3 Months or Most Recently Relevant to Health Maintenance Results * MAMMO DIAGNOSTIC BILATERAL W OR WO CAD (01/01/2018 10:27 AM ROLLING ATTENDANT) Anatomical Region Laterality Modality Breast Bilateral Mammography 01/01/2018 10:2 7 AM ROLLING ATTENDANT Impressions 01/01/2018 2:29 PM ROLLING ATTENDANT IMPRESSION: Bilateral breast implants. Negative and stable bilateral diagnostic mammogram. Mildly dilated ducts and occasional cysts, otherwise negative bilateral subareolar breast sonogram. If the bloody nipple discharge persists, recommend further evaluation with breast MRI. Overall Assessment: BI-RADS Category: 2. Benign finding(s). Dictation Location: [facility] 01/01/2018 2:29 PM ROLLING ATTENDANT BILATERAL DIAGNOSTIC DIGITAL IMPLANT MAMMOGRAMS WITH [...] BI-RADS Category: 2. Benign finding(s). Dictation Location: [facility] Danny Chan MD MAMMO ORDERABLES Final Result * POC OCCULT BLOOD 1 CARD (04/01/2014 1:30 PM CDT) OCCULT BLOOD #1 Negative Negative [facility] Stool specimen (specimen) 04/01/2014 1:30 PM CDT us Rock Bullock MD POINT OF CARE TESTING Final Resu lt [facility] from Last 3 Months or Most Recently Relevant to Health Maintenance Insurance [facility] OPTIONS PPO [id number] Care Teams Sports Book Writer Relationship Specialty Start Date End Date Tessy Francois DO [address] [place] [address] PCP - General 11/17/15
--- OUTSIDE RECORDS SUMMARY | 2025-09-30 15:48 | XMS_ITS | Encounter Summary ---
Author Organization [facility] Address [address] [place] [address] Care Team Providers Care Sql Database Administrator Name Role Phone Priscila Tessydasha Mchugh Primary Care Provider [phone] [phone] Encounter Details Date Type Department Care Team (Latest Contact Info) Description 05/18/2009 Outpatient Historical HIS [facility] Sujatha Ledesma MD [address] [place] [address] Regional Enteritis of Unspecified Site (CMS/HCC) Social History Tobacco Use Types Packs/Day Years Used Date Smoking Tobacco: Never Assessed Comments Unknown Sex and Gender Information Value Date Recorded Sex Assigned at Not on file Legal Sex Female 5:28 AM KETTLE CLEANER Gender Identity Not on file Sexual Orientation [...] - 10.2 mg/dL [facility] CHLORIDE 100 96 - 108 mmol/L [facility] ALBUMIN 4.4 3.4 - 4.8 g/dL [facility] CREATININE 0.67 0.51 - 0.95 mg/dL [facility] SODIUM 139 135 - 145 mmol/L [facility] ALT 13 0 - 31 U/L [facility] ALKALINE PHOSPHATASE 48 35 - 104 U/L [facility] BILIRUBIN TOTAL 0.4 0.2 - 1.0 mg/dL [facility] CO2 26 22 - 30 mmol/L [facility] TOTAL PROTEIN 7.2 6.3 - 8.6 g/dL [facility] POTASSIUM 4.0 3.5 - 4.9 mmol/L [facility] GLUCOSE 109(H) 65 - 99 mg/dL [facility] AST 15 12 - 32 U/L [facility] BUN 7 6 - 20 mg/dL [facility] GFR, >60 >=60 mL/min/1. 7 sq meter [facility] GFR >60 >=60 mL/min/1. 7 sq meter [facility] Comment: Modification of Diet in Renal Disease (MDRD) study formula. Estimated GFR rate interpretative information for both Americans and non- Americans is available on the [facility] Intranet at: [email or web address] Select: Lab Policies and Procedures Select: Reference Ranges - GFR 05/18/2009 4:50 PM CDT 05/18/2009 5:14 PM CDT us Sujatha Prado MD CHEMISTRY ORDERABLES Edited INTERFACE SYSTEM Refer to clinic/hospital department [facility] CLIA# [id number] [address] [place] [address] * C-REACTIVE PROTEIN (05/18/2009 4:50 PM CDT) [facility] CRP 0.5 0.0 - 0.8 mg/dL [facility] 05/18/2009 4:50 PM CDT 05/18/2009 5:14 PM CDT us Sujatha Prado MD CHEMISTRY ORDERABLES Final Resu lt INTERFACE SYSTEM Refer to clinic/hospital department [facility] CLIA# [id number] [address] [place] [address] * (ABNORMAL) CBC WITH DIFFERENTIAL (05/18/2009 4:50 PM CDT) [facility] RBC 3.59(L) 3.90 - 4.90 M/uL [facility] MCHC 33.9 31.5 - 35.5 % [facility] MCV 102.8(H) 82.0 - 99.0 fL [facility] PLATELETS 373(H) 140 - 350 K/uL [facility] HEMOGLOBIN 12.5 11.8 - 14.8 g/dL [facility] RDW 14.1 11.5 - 14.5 % [facility] WBC 8.3 4.0 - 9.8 K/uL [facility] MCH 34.8(H) 27.2 - 32.6 pg [facility] MPV 10.1 9.3 - 12.4 fL [facility] HEMATOCRIT 36.9 35.5 - 44.0 % [facility] RDW-STDEV 52.3(H) 37.1 - 48.7 fL [facility] MONOCYTES 7 3 - 13 % [facility] MONOCYTE ABSOLUTE 0.62 0.10 - 1.30 K/uL [facility] NEUTROPHILS 73(H) 45 - 70 % [facility] NEUTROPHIL ABSOLUTE 6.06 1.90 - 7.00 K/uL [facility] EOSINOPHILS 2 0 - 7 % [facility] EOSINOPHIL ABSOLUTE 0.16 0.00 - 0.70 K/uL [facility] LYMPHOCYTES 18 16 - 45 % [facility] LYMPHOCYTE ABSOLUTE 1.46 0.70 - 4.50 K/uL [facility] BASOPHILS 1 0 - 2 % [facility] BASOPHILS ABSOLUTE 0.04 0.00 - 0.20 K/uL [facility] 05/18/2009 4:50 PM CDT 05/18/2009 5:12 PM CDT us Sujatha Prado MD HEMATOLOGY ORDERABLES Edited INTERFACE SYSTEM Refer to clinic/hospital department [facility] CLIA# [id number] [address] [place] [address] documented in this encounter Visit Diagnoses Diagnosis Regional enteritis of unspecified site (CMS/HCC) Regional enteritis of unspecified site documented in this encounter Care Teams Sql Database Administrator Relationship Specialty Start Date End Date Tessy Francois DO [address] [place] [address] PCP - General 11/17/15 documented as of this encounter
--- OUTSIDE RECORDS SUMMARY | 2025-09-30 15:48 | XMS_ITS | Encounter Summary ---
Author Organization [employer] Address [address] [place] [address] Care Team Providers Care Foot Orthopedist Name Role Phone Priscila Tessy Britte Primary Care Provider [phone] [phone] Encounter Details Date Type Department Care Team (Late st Contact Info) Description 12/29/2008 Emergency [facility] Er, Authorized P NO ADDRESS ON FILE Manjit Mendiola MD NO ADDRESS ON FILE Social History Tobacco Use Types Packs/Day Years Used Date Smoking Tobacco: Never Assessed Comments Unknown Sex and Gender Information Value Date Recorded Sex Assigned at Not on file Legal Sex Female 5:28 AM DICE MANAGER Gender Identity Not on file Sexual Orientation Not on file documented as of this encounter Plan of Treatment Not on file documented as of this encounter Procedures Procedure Name Priority Date/Time Associated Diagnosis Comments CT HEAD WO CONTRAST Routine 12/29/2008 4 :15 PM DICE MANAGER CBC WITH DIFFERENTIAL Stat 12/29/2008 2:48 PM DICE MANAGER C-REACTIVE PROTEIN Stat 12/29/2008 2: 48 PM DICE MANAGER COMPREHENSIVE METABOLIC PANEL Stat 12/29/2008 2:48 PM DICE MANAGER documented in this encounter Results * CT HEAD WO CONTRAST (12/29/2008 4:15 PM DICE MANAGER) Anatomical Region Laterality Modality Head Other 12/29/2008 4:15 PM DICE MANAGER Narrative 12/29/2008 4:28 PM [facility] [address] [place], [place] [address] Admit Date: 12/29/2008 ZEINA COLE Sex: F Admit Prov: ER, AUTHORIZED P Date: 1960 Primary Care Prov: NADIA PEÑALOZA CMRN: [id number] [phone] IMAGING SERVICES Ordering Prov: N/A Accession Number: [id number] Interpretation CT head without contrast 12/29/2008.. History: [...] CHEUNG 12/29/2008 16:26 Electronically signed by: MEG CEHUNG 12/29/2008 16:27 Procedure Note Meg Cheung 12/29/2008 [facility] [address] [place], [place] [address] Admit Date: 12/29/2008 ZEINA COLE Sex: F Admit Prov: ER, AUTHORIZED P Date: 1960 Primary Care Prov: NADIA PEÑALOZA CMRN: [id number] [facility] [phone] IMAGING SERVICES Ordering Prov: N/A Interpretation CT [...] Result * C-REACTIVE PROTEIN (12/29/2008 2:48 PM DICE MANAGER) CRP 0.3 0.0 - 0.8 mg/dL [facility] Blood specimen (specimen) 12/29/2008 2:48 PM DICE MANAGER 12/29/2008 3:01 PM DICE MANAGER Manjit Mendiola MD CHEMISTRY ORDERABLES Final R esult INTERFACE SYSTEM Refer to clinic/hospital department [facility] CLIA# [id number] [address] [place] [address] * (ABNORMAL) COMPREHENSIVE METABOLIC PANEL (12/29/2008 2:48 PM DICE MANAGER) CREATININE 0.67 0.51 - 0.95 mg/dL [facility] [...] [facility] [place] Intranet at: [email or web address] Select: Lab Policies and Procedures Select: Reference Ranges - GFR Blood specimen (specimen) 12/29/2008 2:48 PM DICE MANAGER 12/29/2008 3:01 PM DICE MANAGER us Manjit Mendiola MD CHEMISTRY ORDERABLES Edited INTERFACE SYSTEM Refer to clinic/hospital department [facility] CLIA# [id number] [address] [place] [address] * (ABNORMAL) CBC WITH DIFFERENTIAL (12/29/2008 2:48 PM DICE MANAGER) RDW-STDEV 43.8 37.1 - 48.7 fL [facility] [...] LAB NEUTROPHILS 78(H) 45 - 70 % [facility] NEUTROPHIL ABSOLUTE 8.58(H) 1.90 - 7.00 K/uL [facility] EOSINOPHILS 1 0 - 7 % [facility] EOSINOPHIL ABSOLUTE 0.05 0.00 - 0.70 K/uL [facility] LYMPHOCYTES 17 16 - 45 % [facility] LYMPHOCYTE ABSOLUTE 1.89 0.70 - 4.50 K/uL [facility] BASOPHILS 0 0 - 2 % [facility] BASOPHILS ABSOLUTE 0.03 0.00 - 0.20 K/uL [facility] Blood specimen (specimen) 12/29/2008 2:48 PM DICE MANAGER 12/29/2008 3:01 PM DICE MANAGER us Manjit Mendiola MD HEMATOLOGY ORDERABLES Edited INTERFACE SYSTEM Refer to clinic/hospital department [facility] CLIA# [id number] [address] [place] [address] documented in this encounter Visit Diagnoses Not on filedocumented in this encounter Care Teams Foot Orthopedist Relationship Specialty Start Date End Date Tessy Francois DO [address] [place] [address] PCP - General 11/17/15 documented as of this encounter
--- OUTSIDE RECORDS SUMMARY | 2025-09-30 15:48 | XMS_ITS | Clinical Summary ---
Author Organization [facility] Address [address] [facility] [place] [address] Care Team Providers Care Supervisor Composing Room Name Role Phone Gledny Eatonily Caity VOCATIONAL TEACHER-[facility] Primary Care Provider [phone] Source Comments [facility],non-owned Affiliates and Associated Physician Practices is amultiple site organization consisting of ambulatory clinics and hospital sitesin [place], [place], [place] and [place]. This disclosure is being madepursuant to the Care Everywhere program and may not contain all information available regarding this patient. Last updated 18.[facility] Allergies Active Allergy Reactions Criticality Noted Date Comments Ciprofloxacin 01/05/2011 Rash at infusion site immediately upon adminitration 01/05/11 Egg Solids, Whole Unknown 03/30/2025 Hydrocodone Itching,Unknown Low 04/01/2014 Hydrocodone-Acetaminophe n Rash Medium 06/28/2025 Cephalexin Anaphylaxis High 12/19/2010 Mesalamine Vomiting 06/28/2025 Spironolactone Palpitations 06/28/2025 Sulfa Drugs Urticaria Medium 06/28/2025 Medications * Be aware that medications may not be up to date on this document. Alwaysverify current medications with the patient. spironolactone (Aldactone) 50 MG tablet Take 1 (one) tablet by mouth once daily Active levothyroxine (Synthroid) 50 MCG tablet Take 1 (one) tablet by mouth daily before breakfast Active esomeprazole (NexIUM) 40 MG capsule Take 1 (one) capsule by mouth daily before breakfast Active Ubrelvy 50 MG tabletIndication s:Migraine without aura and without status migrainosus, not intractable Take 1 (one) tablet by mouth once daily as needed for Migraine 14 tablet 5 Active rosuvastatin (Crestor) 20 MG tablet Take 1 (one) tablet by mouth once daily Active FLUoxetine (PROzac) 40 MG capsule Take 1 (one) capsule by mouth once daily 4 Active Active Problems Problem Noted Date Diagnosed Date Alcohol use 06/28/2025 Anxiety 06/28/2025 Arthritis 06/28/2025 Benign neoplasm 06/28/2025 Abdominal cramping 06/28/2025 Blood urea abnormal 06/28/2025 Bruises easily 06/28/2025 Carotid bruit 06/28/2025 Chest pain 06/28/2025 Cigarette smoker 06/28/2025 Crohn's disease of both small and large intestin e 06/28/2025 Depressive disorder 06/28/2025 Disorder of kidney 06/28/2025 Environmental allergies 06/28/2025 Family history of arterial aneurysm 06/28/2025 Family history of type 1 diabetes mellitus 06/28 Fatigue 06/28/2025 Former smoker 06/28/2025 MAYANK (generalized anxiety disorder) 06/28/2025 Gastroesophageal reflux disease 06/28/2025 Gastrointestinal hemorrhage 06/28/2025 Hematochezia 06/28/2025 History of intestinal obstruction 06/28/2025 History of osteoarthritis 06/28/2025 History of urinary tract infection 06/28/2025 Hyperlipidemia 06/28/2025 Joint pain 06/28/2025 Marijuana use 06/28/2025 MDD (major depressive disord er), recurrent episode, moderate 06/28/2025 Migraine headache 06/28/2025 Nausea 06/28/2025 Paroxysmal supraventricular tachycardia 06/28/20 Primary osteoarthritis, right ankle and foot Severe episode of recurrent major depressive disorder, without psychotic features 06/28/2025 Stenosis of carotid artery 06/28/2025 Tremor 06/28/2025 Vitamin D deficiency 06/28/2025 Weight loss 06/28/2025 Family history of sudden cardiac (SCD) Palpitations 01/27/2016 Tachycardia, unspecified 01/27/2016 Menopausal symptoms 04/04/2015 S/P shoulder surgery 08/11/2013 Overview (06/28/2025): right S/P JACK-BSO 08/11/2013 Status post endometrial ablation 03/07/2010 Crohn disease 03/07/2010 Screening for cervical cancer 03/22/2009 Overview (12/18/2010): 03/07/2010, 11/23/08 WNL Other screening mammogram 03/22/2009 Overview (03/22/2009): 04/25/06 R breast neg Screen for colon cancer 03/22/2009 Overview (03/22/2009): 10/09 Resolved Problems Problem Noted Date Diagnosed Date Resolved Date Diarrhea 06/28/2025 07/26/2025 Fibroid, uterine 01/05/2011 01/07/2011 DUB (dysfunctional uterine bleeding) 03/07/2010 01/07/2011 Immunizations Immunization Administration Dates Next Due INFLUENZA VACCINE, TRIV. (AF LURIA, FLUZONE TRIVALENT; 6MO+) (IIV3) 09/17/2012 INFLUENZA VACCINE, HIGH-DOSE , QUADR. (FLUZONE HIGH-DOSE QUADRIVALENT; 65Y+), 0.7 ML (HD-IIV4) 09/02/2018 TDAP (7yrs+) 06/01/2008 Family History Medical History Relation Name Comments Hypertension Brother COPD - Chronic Obstructive Pulmonary Disease Mother Diabetes Mother Relation Name Status Comments Brother Mother Social History Tobacco Use Types Packs/Day Years Used Date Smoking Tobacco: Former Cigarettes Smokeless Tobacco: Never Alcohol Use Standard Drinks/Week Comments Yes 0 (1 standard drink = 0.6 oz pur e alcohol) Occasional Comments No Sex and Gender Information Value Date Recorded Sex Assigned at Not on file Legal Sex Female 4:31 AM SKI TOP TRIMMER Gender Identity Not on file Sexual Orientation Not on file Last Filed Vital Signs Vital Sign Reading Time Taken Comments Blood Pressure 137/81 06/28/2025 9:46 AM CDT Pulse 77 06/28/2025 9:46 AM CDT Temperature 36.3 C (97.3 F) 01/07/2011 8:00 AM SKI TOP TRIMMER Respiratory Rate 18 01/07/2011 8:00 AM SKI TOP TRIMMER Oxygen Saturation 95% 06/28/2025 9:46 AM CDT Inhaled Oxygen Concentration - - Weight 71 kg (156 lb 9.6 oz) 06/28/2025 9:46 AM CDT Height 172.7 cm (5' 8) 06/28/2025 9:46 AM CDT Body Mass Index 23.81 06/28/2025 9:46 AM CDT Plan of Treatment Upcoming Encounters Date Type Department Care Team (Late st Contact Info) Description 06/29/2026 4:00 PM CDT Video Visit [facility] - [facility]rology [facility] [facility] [place] [phone] Shira Ogden, VOCATIONAL TEACHER-LACE WINDER [address] [place] [address] [place] [id number] Health Maintenance Due Date Last Done Comments COLOGUARD (AGES 45-75) - COLON CA SCREENING 1962 COLON MONITORING 1962 COLONOSCOPY - COLON CA SCREENING 1962 CT COLONOGRAPHY - COLON CA SCREENING 1962 Colorectal Cancer Screening 1962 FIT - COLON CA SCREENING 1962 FLEX SIG - COLON CA SCREENING 1962 HIV SCREENING 1977 HEPATITIS C SCREENING 04/21/1980 PNEUMOCOCCAL VACCINE 50+ (1 of 1 - PCV) 2012 ZOSTER VACCINE (1 of 2) 2012 DTAP/TDAP/TD VACCINES (2 - Td or Tdap) 06/01/2018 06/01/2008 MAMMOGRAM 01/01/2020 01/01/2018, 12/04, 02/06/2017, Additional history exists Respiratory Syncytial Virus (RSV) Vaccine Pt: or over 60 yrs (1 - Risk 60-74 years 1-dose series) 2022 DEPRESSION SCREENING 12/02/2024 COVID-19 VACCINE (1 - season) 2025 INFLUENZA VACCINE (#1) 2025 09/02/2018, 2011 HEPATITIS B VACCINE Aged Out No longe [...] Modality Other Rock Bullock MD MAMMO ORDERABLES Final Result from Last 3 Months or Most Recently Relevant to Health Maintenance [place] [address] SELF PAY NO INSURANCE Member Subscriber Plan / Payer (Ef fective for All Dates) Name:Zeina Cole Member ID:Not on file Relation to Subscriber:Not on file Name:ZEINA COLE Subscriber ID:Not on file (Home) Address: [address] [place] [place] [address] [place] [address] Payer ID:Not on file Group ID:Not on file Type:Self Pay Address: [facility] * Guarantor: ZEINA COLE Account Type Relation to Patient Date of Phone Billing Address Personal/Family [address] [place] [address] SELF PAY NO INSURANCE Member Subscriber Plan / Payer (Ef fective for All Dates) Name:Zeina oCle Member ID:Not on file Relation to Subscriber:Not on file Name:ZEINA COLE Subscriber ID:Not on file Address: [address] [place] [address] Payer ID:Not on file Group ID:Not on file Type:Self Pay Address: [place], [place] * Guarantor: ZEINA COLE Account Type Relation to Patient Date of Phone Billing Address Personal/Family 1960 [address] [place] [address] SELF PAY NO INSURANCE Member Subscriber Plan / Payer (Ef fective for All Dates) Name:Zeina Cole Member ID:Not on file Relation to Subscriber:Not on file Name:ZEINA COLE Subscriber ID:Not on file Address: [address] [place] [address] Payer ID:Not on file Group ID:Not on file Type:Self Pay Address: [place], [place] * Guarantor: ZEINA COLE Account Type Relation to Patient Date of Phone Billing Address Personal/Family 1960 [place] [address] SELF PAY NO INSURANCE Member Subscriber Plan / Payer (Ef fective for All Dates) Name:Zeina Cole A Member ID:Not on file Relation to Subscriber:Not on file Name:ZEINA COLE Subscriber ID:Not on file Address: [place] [address] Payer ID:Not on file Group ID:Not on file Type:Self Pay Address: [place], [place] Advance Directives * Full Code (Latest Code Status on File) Date Activated Date Inactivated Comments 01/05/2011 10:10 AM 01/07/2011 11:35 PM * Full Code Date Activated Date Inactivated Comments 01/05/2011 7:44 AM 01/05/2011 10:10 AM * Full Code Date Activated Date Inactivated Comments 01/03/2011 10:33 PM 01/04/2011 8:00 PM Care Teams Supervisor Composing Room Relationship Specialty Start Date End Date Kirsten Eaton, VARUN-LACE WINDER [address] [place] [address] PCP - General Nurse Practitioner 02/26/25
--- OUTSIDE RECORDS SUMMARY | 2025-09-30 15:48 | XMS_ITS | Encounter Summary ---
Author Organization [facility] Address [address] [place] [address] Care Team Providers Care Head Cleaning Porter Name Role Phone Priscila Tessydasha Mchugh Primary Care Provider [phone] Encounter Details Date Type Department Care Team (Latest Contact Info) Description 04/18/2009 Outpatient Historical HIS [facility] Sujatha Ledesma MD [address] [place] [address] Regional Enteritis of Unspecified Site (CMS/HCC) Social History Tobacco Use Types Packs/Day Years Used Date Smoking Tobacco: Never Assessed Comments Unknown Sex and Gender Information Value Date Recorded Sex Assigned at Not on file Legal Sex Female 5:28 AM 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 SPATIAL SCIENTIST Gender Identity Not on file Sexual Orientation [...] CDT) GLUCOSE 151(H) 65 - 99 mg/dL [facility] AST 17 12 - 32 U/L [facility] BUN 11 6 - 20 mg/dL [facility] CALCIUM 9.2 8.6 - 10.2 mg/dL [facility] CHLORIDE 102 96 - 108 mmol/L [facility] ALBUMIN 4.1 3.4 - 4.8 g/dL [facility] CREATININE 0.67 0.51 - 0.95 mg/dL [facility] SODIUM 138 135 - 145 mmol/L [facility] ALT 14 0 - 31 U/L [facility] ALKALINE PHOSPHATASE 61 35 - 104 U/L [facility] BILIRUBIN TOTAL 0.4 0.2 - 1.0 mg/dL [facility] CO2 25 22 - 30 mmol/L [facility] TOTAL PROTEIN 7.0 6.3 - 8.6 g/dL [facility] POTASSIUM 3.6 3.5 - 4.9 mmol/L [facility] GFR, >60 >=60 mL/min/1. 7 sq meter [facility] GFR >60 >=60 mL/min/1. 7 sq meter [facility] Comment: Modification of Diet in Renal Disease (MDRD) study formula. Estimated GFR rate interpretative information for both Americans and non- Americans is available on the [facility] Intranet at: [email or web address] Select: Lab Policies and Procedures Select: Reference Ranges - GFR Blood specimen (specimen) 04/18/2009 1:13 PM CDT 04/18/2009 2:00 PM CDT Sujatha Prado MD CHEMISTRY ORDERABLES Edited INTERFACE SYSTEM Refer to clinic/hospital department [facility] CLIA# [id number] [address] [place] [address] * (ABNORMAL) CBC WITH DIFFERENTIAL (04/18/2009 1:13 PM CDT) MCV 101.5(H) 82.0 - 99.0 fL [facility] PLATELETS 319 140 - 350 K/uL [facility] HEMOGLOBIN 13.3 11.8 - 14.8 g/dL [facility] RDW 14.1 11.5 - 14.5 % [facility] WBC 7.2 4.0 - 9.8 K/uL [facility] MCH 33.9(H) 27.2 - 32.6 pg [facility] MPV 10.3 9.3 - 12.4 fL [facility] HEMATOCRIT 39.8 35.5 - 44.0 % [facility] RDW-STDEV 52.2(H) 37.1 - 48.7 fL [facility] RBC 3.92 3.90 - 4.90 M/uL [facility] MCHC 33.4 31.5 - 35.5 % [facility] EOSINOPHILS 1 0 - 7 % [facility] EOSINOPHIL ABSOLUTE 0.10 0.00 - 0.70 K/uL [facility] LYMPHOCYTES 21 16 - 45 % [facility] LYMPHOCYTE ABSOLUTE 1.50 0.70 - 4.50 K/uL [facility] BASOPHILS 0 0 - 2 % [facility] BASOPHILS ABSOLUTE 0.03 0.00 - 0.20 K/uL [facility] MONOCYTES 5 3 - 13 % [facility] MONOCYTE ABSOLUTE 0.37 0.10 - 1.30 K/uL [facility] NEUTROPHILS 72(H) 45 - 70 % [facility] NEUTROPHIL ABSOLUTE 5.15 1.90 - 7.00 K/uL [facility] Blood specimen (specimen) 04/18/2009 1:13 PM CDT 04/18/2009 1:53 PM CDT us Sujatha Prado MD HEMATOLOGY ORDERABLES Edited INTERFACE SYSTEM Refer to clinic/hospital department [facility] CLIA# [id number] [address] [place] [address] documented in this encounter Visit Diagnoses Diagnosis Regional enteritis of unspecified site (CMS/HCC) Regional enteritis of unspecified site documented in this encounter Care Teams Head Cleaning Porter Relationship Specialty Start Date End Date Tessy Francois DO [address] [place] [address] PCP - General 11/17/15 documented as of this encounter
--- OUTSIDE RECORDS SUMMARY | 2025-09-30 15:48 | XMS_ITS | Clinical Summary ---
Author Organization [facility] Address [address] [place] [address] Care Team Providers Care Urban Planning Professor Name Role Phone Unavailable Primary Care Provider [...] Vaccines (1 of 2) 2012 COVID-19 Vaccine ( - 2024-2 6 season) 2025 Influenza Adult (#1) 2025 RSV Immunization or 60+ Years (1 - 1-dose 75+ series) 2037 Hepatitis A Vaccines Aged Out No long er eligible based on patient's age to complete this topic Meningococcal B Vaccine Aged Out No l onger eligible based on patient's age to complete this topic Meningococcal Vaccine Aged Out No geoffrey víctor eligible based on patient's age to complete this topic RSV Immunizations Under 20 Months Aged Out No longer eligible based on patient's age to complete this topic
--- OUTSIDE RECORDS SUMMARY | 2025-09-30 15:48 | XMS_ITS | Encounter Summary ---
Author Organization [facility] Address 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 [employer] Gender Identity Not on file Sexual Orientation [...] CDT) CALCIUM 9.5 8.6 - 10.2 mg/dL [facility] CHLORIDE 101 96 - 108 mmol/L [facility] ALBUMIN 4.5 3.4 - 4.8 g/dL [facility] CREATININE 0.77 0.51 - 0.95 mg/dL [facility] SODIUM 138 135 - 145 mmol/L [facility] ALT 46(H) 0 - 31 U/L [facility] ALKALINE PHOSPHATASE 54 35 - 104 U/L [facility] BILIRUBIN TOTAL 0.3 0.2 - 1.0 mg/dL [facility] CO2 28 22 - 30 mmol/L [facility] TOTAL PROTEIN 7.2 6.3 - 8.6 g/dL [facility] POTASSIUM 3.9 3.5 - 4.9 mmol/L [facility] GLUCOSE 96 65 - 99 mg/dL [facility] AST 33(H) 12 - 32 U/L [facility] BUN 7 6 - 20 mg/dL [facility] Intranet at: [email or web address] Select: Lab Policies and Procedures Select: Reference Ranges - GFR Blood specimen (specimen) 03/10/2009 2:33 PM CDT 03/10/2009 3:22 PM CDT Sujatha Prado MD CHEMISTRY ORDERABLES Edited INTERFACE SYSTEM Refer to clinic/hospital department [facility] CLIA# [id number] [address] [place] [address] * (ABNORMAL) CBC WITH DIFFERENTIAL (03/10/2009 2:33 PM CDT) RBC 4.13 3.90 - 4.90 M/uL [facility] MCHC 32.7 31.5 - 35.5 % [facility] MCV 101.5(H) 82.0 - 99.0 fL [facility] PLATELETS 315 140 - 350 K/uL [facility] HEMOGLOBIN 13.7 11.8 - 14.8 g/dL [facility] RDW 14.3 11.5 - 14.5 % [facility] WBC 7.6 4.0 - 9.8 K/uL [facility] MCH 33.2(H) 27.2 - 32.6 pg [facility] MPV 10.5 9.3 - 12.4 fL [facility] HEMATOCRIT 41.9 35.5 - 44.0 % [facility] RDW-STDEV 52.8(H) 37.1 - 48.7 fL [facility] NEUTROPHILS 67 45 - 70 % [facility] NEUTROPHIL ABSOLUTE 5.13 1.90 - 7.00 K/uL [facility] EOSINOPHILS 2 0 - 7 % [facility] EOSINOPHIL ABSOLUTE 0.17 0.00 - 0.70 K/uL [facility] LYMPHOCYTES 21 16 - 45 % [facility] LYMPHOCYTE ABSOLUTE 1.60 0.70 - 4.50 K/uL [facility] BASOPHILS 1 0 - 2 % [facility] BASOPHILS ABSOLUTE 0.05 0.00 - 0.20 K/uL [facility] MONOCYTES 9 3 - 13 % [facility] MONOCYTE ABSOLUTE 0.66 0.10 - 1.30 K/uL [facility] Blood specimen (specimen) 03/10/2009 2:33 PM CDT 03/10/2009 3:24 PM CDT us Sujatha Prado MD HEMATOLOGY ORDERABLES Edited INTERFACE SYSTEM Refer to clinic/hospital department [facility] CLIA# [id number] [address] [place] [address] documented in this encounter Visit Diagnoses Diagnosis Regional enteritis of unspecified site (CMS/HCC) Regional enteritis of unspecified site documented in this encounter Care Teams Railway Head Tender Relationship Specialty Start Date End Date Tessy Francois DO [address] [place] [address] PCP - General 11/17/15 documented as of this encounter
--- OUTSIDE RECORDS SUMMARY | 2025-09-30 15:48 | XMS_ITS | Encounter Summary ---
Author Organization [facility] Address [address] [place] [address] Care Team Providers Care Electric Accounting Machine Operator Name Role Phone Tessy Francois DO Primary Care Provider [phone] Encounter Details Date Type Department Care Team (Late st Contact Info) Description 08/29/2007 Outpatient Historical [facility] Support Serv. ([facility]t Cardiology[facility]) [address] [place] [address] Tristan Hyman MD NO ADDRESS ON FILE Social History Tobacco Use Types Packs/Day Years Used Date Smoking Tobacco: Never Assessed Comments Unknown Sex and Gender Information Value Date Recorded Sex Assigned at Not on file Legal Sex Female 5:28 AM [employer] Gender Identity Not on file Sexual Orientation Not on file documented as of this encounter Plan of Treatment Not on file documented as of this encounter Visit Diagnoses Not on filedocumented in this encounter Care Teams Electric Accounting Machine Operator Relationship Specialty Start Date End Date Tessy Francois DO [address] [place] [address] PCP - General 11/17/15 documented as of this encounter
--- OUTSIDE RECORDS SUMMARY | 2025-09-30 15:48 | XMS_ITS | Encounter Summary ---
Author Organization [facility] Address [address] [place] [address] Care Team Providers Care Salon/Spa Manager Name Role Phone Priscila Tessy Britte Primary Care Provider [phone] Encounter Details Date Type Department Care Team (Late st Contact Info) Description 10/26/2008 Outpatient Historical [facility] Mago Sarabia MD Social History Tobacco Use Types Packs/Day Years Used Date Smoking Tobacco: Never Assessed Comments Unknown Sex and Gender Information Value Date Recorded Sex Assigned at Not on file Legal Sex Female 5:28 AM BAKERY HELPER Gender Identity Not on file Sexual Orientation Not on file documented as of this encounter Plan of Treatment Not on file documented as of this encounter Procedures Procedure Name Priority Date/Time Associated Diagnosis Comments STOOL CULTURE (SILVANO,SHIG,CAMPY,ECO1 57) Routine 10/26/2008 7:52 AM BAKERY HELPER C. DIFFICILE DETECTION Routine 10/26/2008 7:52 AM BAKERY HELPER FECAL LEUKOCYTES STAIN Routine 10/26/2008 7:52 AM BAKERY HELPER OVA AND PARASITE SCREEN Routine 10/26/2008 7:52 AM BAKERY HELPER documented in this encounter Results * CLOSTRIDIUM DIFFICILE TOXIN (10/26/2008 7:52 AM BAKERY HELPER) FINAL REPORT NO Clostridium difficile Toxin A or B detected by EIA. A negative result does not rule out C. difficile associated diarrhea or colitis. [facility] Stool specimen (specimen) 10/26/2008 7:52 AM BAKERY HELPER 10/26/2008 8:13 AM BAKERY HELPER us Sujatha Prado MD MICROBIOLOGY - GENERAL ORDERABL ES Final Result Performing Organization Address [facility] de Phone Number INTERFACE SYSTEM Refer to clinic/hospital department [facility] CLIA# [id number] [address] [place] [address] * OVA AND PARASITE SCREEN (10/26/2008 7:52 AM BAKERY HELPER) PRELIMINARY REPORT Pending [facility] FINAL REPORT Concentration : No ova or parasites seen. Trichrome: No ova or parasites seen. [facility] Stool specimen (specimen) 10/26/2008 7:52 AM BAKERY HELPER 10/26/2008 8:15 AM BAKERY HELPER Narrative INTERFACE SYSTEM - 11/02/2008 7:09 AM BAKERY HELPER Performed by [facility] [address] Performed by [facility] [address] us Sujatha Prado MD MICROBIOLOGY - GENERAL ORDERABL ES Final Result Performing Organization Address [facility] Phone Number INTERFACE SYSTEM Refer to clinic/hospital department [facility] CLIA# [id number] [address] [place] [address] * FECAL LEUKOCYTES STAIN (10/26/2008 7:52 AM BAKERY HELPER) FINAL REPORT Few WBC's seen [facility] Stool specimen (specimen) 10/26/2008 7:52 AM BAKERY HELPER 10/26/2008 8:13 AM BAKERY HELPER us Sujatha Prado MD MICROBIOLOGY - GENERAL ORDERABL ES Final Result Performing Organization Address City/[facility] de Phone Number INTERFACE SYSTEM Refer to clinic/hospital department [facility] CLIA# [id number] [address] [place] [address] * STOOL CULTURE (SILVANO,SHIG,CAMPY,[id number]) (10/26/2008 7:52 AM BAKERY HELPER) PRELIMINARY REPORT No Salmonella isolated. No Shigella isolated. No Escherichia coli serogroup O157:H7 isolated. [facility] FINAL REPORT No Salmonella isolated. No Shigella isolated. No Escherichia coli serogroup O157:H7 isolated. No Camplylobacter isolated. [facility] Stool specimen (specimen) 10/26/2008 7:52 AM BAKERY HELPER 10/26/2008 8:17 AM BAKERY HELPER us Sujatha Prado MD MICROBIOLOGY - GENERAL ORDERABL ES Final Result INTERFACE SYSTEM Refer to clinic/hospital department [facility] CLIA# [id number] [address] [place] [address] documented in this encounter Visit Diagnoses Not on filedocumented in this encounter Care Teams Salon/Spa Manager Relationship Specialty Start Date End Date Tessy Francois DO [address] [place] [address] PCP - General 11/17/15 documented as of this encounter
--- OUTSIDE RECORDS SUMMARY | 2025-09-30 15:48 | XMS_ITS | Encounter Summary ---
Author Organization [facility] Address [address] [place] [address] Care Team Providers Care Concrete Products Dispatcher Name Role Phone Priscila Tessydasha Mchugh Primary Care Provider [phone] Encounter Details Date Type Department Care Team (Latest Contact Info) Description 07/08/2009 Outpatient Historical HIS [facility] Sujatha Ledesma MD [address] [place] [address] Regional Enteritis of Unspecified Site (CMS/HCC) Social History Tobacco Use Types Packs/Day Years Used Date Smoking Tobacco: Never Assessed Comments Unknown Sex and Gender Information Value Date Recorded Sex Assigned at Not on file Legal Sex Female 5:28 AM AGENCY CASHIER Gender Identity Not on file Sexual Orientation [...] (07/13/2009 12:26 PM CDT) SPECIMEN TYPE Blood [facility] TEST NAME THIOPURINE METABOLITES [facility] MISCELLANEOUS LAB TEST Name of Test: DipJar THIOPURINE METABOLITES Test Result: Metabolite: 6-TGN Result (Units: pmole/8x10^8 RBC): 426 Reference Range: 230 ? 400 Result Assessment: Higher Risk of Leucopenia. Higher Likelihood of Response. Metabolite: 6-MMPN Result (Units: pmole/8x10^8 RBC): 2516 Reference Range: <5700 Result Assessment: Lower Risk of Hepatotoxicity. Test Performed By: [facility], [place], [place] [facility] Specimen of unknown material (specimen) 07/13/2009 12:26 PM CDT 07/13/2009 12:36 PM CDT us Sujatha Prado MD CHEMISTRY ORDERABLES Edited Performing Organization Address [facility]/ZIP Co de Phone Number [facility] CLIA# [id number] [address] [place] [address] * VITAMIN B12 (07/13/2009 12:26 PM CDT) [...] [facility] [place] CLIA# [id number] [address] [place] [address] * TSH (07/13/2009 12:26 PM CDT) [facility] TSH 0.98 0.27 - 4.20 uU/mL [facility] Blood specimen (specimen) 07/13/2009 12:26 PM CDT 07/13/2009 12:36 PM CDT Sujatha Prado MD CHEMISTRY ORDERABLES Final Resu lt [facility] CLIA# [id number] [address] [facility] [place] [address] * (ABNORMAL) CBC WITH DIFFERENTIAL (07/13/2009 12:26 PM CDT) [facility] RDW 16.4(H) 11.5 - 14.5 % [facility] LYMPHOCYTE ABSOLUTE 0.60(L) 0.70 - [...] [facility] NEUTROPHIL ABSOLUTE 7.94(H) 1.90 - 7.00 K/uL [facility] EOSINOPHILS 0 0 - 7 % [facility] EOSINOPHIL ABSOLUTE 0.01 0.00 - 0.70 K/uL [facility] Blood specimen (specimen) 07/13/2009 12:26 PM CDT 07/13/2009 12:36 PM CDT Sujatha Prado MD HEMATOLOGY ORDERABLES Edited [facility] CLIA# [id number] [address] [place] [address] documented in this encounter Visit Diagnoses Diagnosis Regional enteritis of unspecified site (CMS/HCC) Regional enteritis of unspecified site documented in this encounter Care Teams Concrete Products Dispatcher Relationship Specialty Start Date End Date Tessy Francois DO [address] [place] [address] PCP - General 11/17/15 documented as of this encounter
--- OUTSIDE RECORDS SUMMARY | 2025-09-30 15:48 | XMS_ITS | Clinical Summary ---
Author Organization [facility] Address [address] [place] [address] Care Team Providers Care Svp Name Role Phone Dillan Woody MD Primary Care Provider [phone] Kirsten Eaton NP Unavailable [phone] Allergies Active Allergy Reactions Criticality Noted Date Comments Cephalexin Anaphylaxis High 12/19/2010 Egg Unknown 03/30/2025 Hydrocodone Soybean Extract-Soy Isoflavone Unknown 03/30 Medications FLUoxetine (PROzac) 40 mg capsule Take 1 capsule (40 mg total) by mouth daily 5 Active spironolactone (ALDACTONE) 50 mg tablet Take 1 tablet (50 mg total) by mouth daily Active Synthroid 50 mcg tablet Take 1 tablet (50 mcg total) by mouth supply chain logistics manager before breakfast [address] (NexIUM) 40 mg capsule Take 1 capsule (40 mg total) by mouth daily 5 Active aspirin 81 mg enteric coated tablet Take 1 tablet (81 mg total) by mouth daily 90 tablet 3 5 Active ubrogepant (Ubrelvy) 50 mg tablet Take 1 tablet (50 mg total) by mouth once as needed for migraine May repeat dose once in 2 hours if no relief. Do not exceed 2 doses in 24 hours. Active rosuvastatin (CRESTOR) 20 mg tablet Take 1 tablet (20 mg total) by mouth daily 90 tablet 3 Active Active Problems Problem Noted Date Diagnosed Date Palpitations 01/27/2016 Tachycardia, unspecified 01/27/2016 Family history of sudden cardiac (SCD) Encounters Date Type Department Care Team Description 09/02/2025 3:45 PM CDT Office Visit [facility] Medicine Cardiology [facility] Medicine 8th [place] [address] [place] [address] Villa Randhawa MD PhD Palpitations (Primary Dx); Coronary artery calcification seen on CT scan from Last 3 Months Family History Medical History Relation Name Comments Stroke Father Family history of cerebrovascular accident (CVA) - (Added by Conv) Diabetes Mother Family history of diabetes mellitus - (Added by Conv) Sudden Cardiac Sister 1 Family history of sudden cardiac (SCD) - (Added by Conv) Sudden Cardiac Sister 2 Family history of sudden cardiac - (Added by Conv) Relation Name Status Comments Father Mother Sister 1 Sister 2 Social History Tobacco Use Types Packs/Day Years Used Date Smoking Tobacco: Former Cigarettes Smokeless Tobacco: Never Tobacco Cessation:Counseling Given: Not Answered Comments Unknown Sex and Gender Information Value Date Recorded Sex Assigned at Not on file Legal Sex Female 2:28 AM ORACLE 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 CONSULTANT Gender Identity Female 02/04/2025 6:43 PM ORACLE 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 CONSULTANT Sexual Orientation Straight 02/04/2025 6: 43 PM ORACLE 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 CONSULTANT Obstetrics History Last Filed Vital Signs Vital Sign Reading Time Taken Comments Blood Pressure 119/73 09/02/2025 3:02 PM CDT Pulse 78 09/02/2025 3:02 PM CDT Temperature 37.2 C (98.9 F) 08/21/2016 3:48 PM CDT Respiratory Rate - - Oxygen Saturation 95% 09/02/2025 3:02 PM CDT Inhaled Oxygen Concentration - - Weight 77.6 kg (171 lb) 09/02/2025 3:02 PM CDT Height 172.7 cm (5' 8) 09/02/2025 3:02 PM CDT Body Mass Index 26 09/02/2025 3:02 PM CDT Plan of Treatment Health Maintenance Due Date Last Done Comments Breast Cancer Screening-Mammogram 1960 Cervical Cancer Screening 1960 Colon Cancer Screening-Colonoscopy 1960 Depression Screening 1962 Hepatitis C Screening 1960 Hepatitis B Screening 1980 Regular Well Visit/Exam 18-64 1980 Influenza Vaccine (#1) 2025 , 10/21/2023, 10/11/2018, Additional history exists DTaP/Tdap/Td Vaccine (3 - Td or Tdap) 09/14/2025 09/14/2015, 06/01/2008 Pneumococcal vaccine <65 Aged Out 10/15/2024, 12/2014 No longer eligible based on patient's age to complete this topic Zoster Vaccine Completed 12/30/2024, 10/02, 09/14/2015 Care Teams Svp Relationship Specialty Start Date End Date Dillan Woody MD [address] [place] [address] PCP - General 05/30/12 Kirsten Eaton NP [address] [place] [address] [address] Internal Medicine 01/28/25
--- OUTSIDE RECORDS SUMMARY | 2025-09-30 15:48 | XMS_ITS | Encounter Summary ---
Author Organization [facility] Address [address] [facility] Attn: Epic Prelude ADT [place] [address] Care Team Providers Care Product Accountant Name Role Phone Tessy Francois DO Primary Care Provider [phone] Encounter Details Date Type Department Care Team (Late st Contact Info) Description 08/27/2007 Outpatient Historical Amari Emmanuel MD NO ADDRESS ON FILE Social History Tobacco Use Types Packs/Day Years Used Date Smoking Tobacco: Never Assessed Comments Unknown Sex and Gender Information Value Date Recorded Sex Assigned at Not on file Legal Sex Female 5:28 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
--- OUTSIDE RECORDS SUMMARY | 2025-09-30 15:48 | XMS_ITS | Encounter Summary ---
Author Organization [facility] Address [address] [place] [address] Care Team Providers Care Burn Out Tender Lace Name Role Phone Rock Bullock MD Primary Care Provider [phone] Dillan Woody MD Primary Care Provider [phone] Kirsten Eaton TIRE CURER-WASTE DUSTER Primary Care Provider [phone] Shira Ogden TIRE CURER-WASTE DUSTER Unavailable [phone] Encounter Details Date Type Department Care Team (Late Contact Info) Description 12/28/2010 SS Outpatient Visit EXTERNAL NON-[facility] DEPT Rock Bullock MD [address] [place] [address] [address] [place] [address] Social History Tobacco Use Types Packs/Day Years Used Date Smoking Tobacco: Passive Smo ke Exposure - Never Smoker Smokeless Tobacco: Never Alcohol Use Standard Drinks/Week Comments Yes 0 (1 standard drink = 0.6 oz pur e alcohol) Occasional Comments No Sex and Gender Information Value Date Recorded Sex Assigned at Not on file Legal Sex Female 4:31 AM COLOR CONTROL SUPERVISOR Gender Identity Not on file Sexual Orientation Not on file documented as of this encounter Plan of Treatment Upcoming Encounters Date Type Department Care Team (Late Contact Info) Description 06/29/2026 4:00 PM CDT Video Visit [facility] - Neurology [address] [place] [address], [place] [address] Shira [place], TIRE CURER-WASTE DUSTER [address] [place] [address] documented as of this encounter Visit Diagnoses Not on filedocumented in this encounter Care Teams Burn Out Tender Lace Relationship Specialty Start Date End Date Rock Bullock MD [address] [place] [address] PCP - General 12/26/10 02/25/12 Dillan Woody MD [address] [place] [address] PCP - General Internal Medicine 02/26/12 02/25/25 Kirsten Eaton APRN-WASTE DUSTER [address] [place] [address] PCP - General Nurse Practitioner 02/26/25 Shira Ogden APRN-WASTE DUSTER [address] [place] [id number] PCP - [employer] [facility] 04/01/25 08/19/25 documented as of this encounter
--- OUTSIDE RECORDS SUMMARY | 2025-09-30 15:48 | XMS_ITS | Encounter Summary ---
Author Organization [facility] Address 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 Gender Identity Not on file Sexual [...] AM CDT Narrative 09/28/2008 11:12 AM CDT [facility] [address] [place], [place] [address] Admit Date: 09/24/2008 ZEINA COLE Sex: F Admit Prov: NADIA SARABIA Date: 1960 Primary Care Prov: NADIA SARABIA CMRN: [id number] Room: [facility] SSN: [id number] IMAGING SERVICES Ordering Prov: N/A Accession Number: [id number] Interpretation SMALL BOWEL SERIES, 09/28/2008 Clinical History: Crohn's disease, right lower quadrant abdominal pain, possible jejunal intussusception seen on recent abdominal CT. Findings: A preliminary abdominal office worker radiograph is not remarkable. Following oral administration [...] Procedure Note Tristan Cates MD - 09/28/2008 [facility] [address] [place], [place] [address] Admit Date: 09/24/2008 COLE ZEINA Carolina Sex: F Admit Prov: NADIA SARABIA Date: 1960 Primary Care Prov: NADIA SARABIA CMRN: [id number] Room: [facility] SSN: [id number] IMAGING SERVICES Ordering Prov: N/A Interpretation SMALL BOWEL SERIES, 09/28/2008 Clinical History: Crohn's disease, right lower quadrant abdominalpain, possible jejunal intussusception seen on recent abdominal CT. Findings: A preliminary abdominal office worker radiograph is notremarkable. Following oral administration of [...] - 104 U/L [facility] ALT 14 0 - 31 U/L [facility] CHLORIDE 98 96 - 108 mmol/L [facility] AST 15 12 - 32 U/L [facility] BUN 7 6 - 20 mg/dL [facility] TOTAL PROTEIN 6.5 6.3 - 8.6 g/dL [facility] BILIRUBIN TOTAL 0.3 0.2 - 1.0 mg/dL [facility] CREATININE 0.76 0.51 - 0.95 mg/dL [facility] CO2 27 22 - 30 mmol/L [facility] ALBUMIN 3.7 3.4 - 4.8 g/dL [facility] SODIUM 132(L) 135 - 145 mmol/L [facility] CALCIUM 8.8 8.6 - 10.2 mg/dL [facility] GLUCOSE 123(H) 65 - 99 mg/dL [facility] POTASSIUM 3.2(L) 3.5 - 4.9 mmol/L [facility] GFR, >60 >=60 mL/min/1. 7 sq meter [facility] GFR >60 >=60 mL/min/1. 7 sq meter [facility] Comment: Modification of Diet in Renal Disease (MDRD) study formula. Estimated GFR rate interpretative information for both Americans and non- Americans is available on the [facility] Intranet at: [email or web address] Select: Lab Policies and Procedures Select: Reference Ranges - GFR Blood specimen (specimen) 09/24/2008 2:27 PM CDT 09/24/2008 2:33 PM CDT Nadia Sarabia MD CHEMISTRY ORDERABLES Edited INTERFACE SYSTEM Refer to clinic/hospital department [facility] CLIA# [id number] [address] [facility] [place] [address] * (ABNORMAL) CBC WITH DIFFERENTIAL (09/24/2008 2:27 PM CDT) WBC 8.0 4.0 - 9.8 K/uL [facility] MCH 32.1 27.2 - 32.6 pg [facility] MPV 10.2 9.3 - 12.4 fL [facility] HEMATOCRIT 38.8 35.5 - 44.0 % [facility] RDW-STDEV 43.3 37.1 - 48.7 fL [facility] RBC 4.02 3.90 - 4.90 M/uL [facility] MCHC 33.2 31.5 - 35.5 % [facility] MCV 96.5 82.0 - 99.0 fL [facility] PLATELETS 312 140 - 350 K/uL [facility] HEMOGLOBIN 12.9 11.8 - 14.8 g/dL [facility] RDW 12.3 11.5 - 14.5 % [facility] MONOCYTES 9 3 - 13 % [facility] MONOCYTE ABSOLUTE 0.75 0.10 - 1.30 K/uL [facility] NEUTROPHILS 71(H) 45 - 70 % [facility] NEUTROPHIL ABSOLUTE 5.70 1.90 - 7.00 K/uL [facility] EOSINOPHILS 3 0 - 7 % [facility] EOSINOPHIL ABSOLUTE 0.20 0.00 - 0.70 K/uL [facility] LYMPHOCYTES 16 16 - 45 % [facility] LYMPHOCYTE ABSOLUTE 1.30 0.70 - 4.50 K/uL [facility] BASOPHILS 1 0 - 2 % [facility] BASOPHILS ABSOLUTE 0.05 0.00 - 0.20 K/uL [facility] Blood specimen (specimen) 09/24/2008 2:27 PM CDT 09/24/2008 2:33 PM CDT us Nadia Sarabia MD HEMATOLOGY ORDERABLES Edited INTERFACE SYSTEM Refer to clinic/hospital department [facility] CLIA# [id number] [address] [facility] [address] [place] [address] [address] * CT ABDOMEN PELVIS W CONTRAST (09/24/2008 2:12 PM CDT) Anatomical Region Laterality Modality Abdomen Other 09/24/2008 2:12 PM CDT Narrative 09/24/2008 4:46 PM CDT [facility] [address] [place], [place] [address] Admit Date: 09/24/2008 ZEINA COLE Sex: F Admit Prov: NADIA SARABIA Date: 1960 Primary Care Prov: NADIA SARABIA CMRN: [id number] Room: [facility] SSN: [id number] IMAGING SERVICES Ordering Prov: N/A Accession Number: [id number] Interpretation CT SCAN OF THE ABDOMEN AND [...] Procedure Note Olimpia Cavanaugh MD - 09/24/2008 [facility] [address] [place], [place] [address] Admit Date: 09/24/2008 ZEINA COLE Sex: F Admit Prov: NADIA SARABIA Date: 1960 Primary Care Prov: NADIA SARABIA CMRN: [id number] Room: [facility] SSN: [id number] IMAGING SERVICES Ordering Prov: N/A Interpretation CT [...] - 1.3 mg/dL [facility] GFR, >60 >=60 mL/min/1.7 sq meter [facility] GFR >60 >=60 mL/min/1.7 sq meter [facility] Capillary blood specimen (specimen) 09/24/2008 2:05 PM CDT 09/24/2008 2:05 PM CDT us Nadia Sarabia MD POINT OF CARE TESTING Edited INTERFACE SYSTEM Refer to clinic/hospital department [facility] CLIA# [id number] [address] [place] [address] documented in this encounter Visit Diagnoses Not on filedocumented in this encounter Care Teams Property Management Intern Relationship Specialty Start Date End Date Tessy Francois DO [address] [place] [address] PCP - General 11/17/15 documented as of this encounter
--- OUTSIDE RECORDS SUMMARY | 2025-09-30 15:48 | XMS_ITS | Encounter Summary ---
Author Organization [facility] Address [address] [place] [address] Care Team Providers Care Quality Control Director Name Role Phone Priscila Tessydasha Mchugh Primary Care Provider +1 [phone] Encounter Details Date Type Department Care Team (Latest Contact Info) Description 01/26/2009 Outpatient Historical HIS [facility] Sujatha Ledesma MD [address] [place] [address] Regional Enteritis of Unspecified Site (CMS/HCC) Social History Tobacco Use Types Packs/Day Years Used Date Smoking Tobacco: Never Assessed Comments Unknown Sex and Gender Information Value Date Recorded Sex Assigned at Not on file Legal Sex Female 5:28 AM SUBSTATION OPERATOR 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 Gender Identity Not on file Sexual Orientation Not on file documented as of this encounter Plan of Treatment Not on file documented as of this encounter Procedures Procedure Name Priority Date/Time Associated Diagnosis Comments CBC WITH DIFFERENTIAL Routine 01/26/2009 4:41 PM SUBSTATION OPERATOR 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 documented in this encounter Results * (ABNORMAL) CBC WITH DIFFERENTIAL (01/26/2009 4:41 PM SUBSTATION OPERATOR 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) RBC 4.32 3.90 - 4.90 M/uL [facility] MCHC 33.2 31.5 - 35.5 % [facility] MCV 97.0 82.0 - 99.0 fL [facility] PLATELETS 317 140 - 350 K/uL [facility] HEMOGLOBIN 13.9 11.8 - 14.8 g/dL [facility] RDW 13.2 11.5 - 14.5 % [facility] WBC 12.1(H) 4.0 - 9.8 K/uL [facility] MCH 32.2 27.2 - 32.6 pg [facility] MPV 10.5 9.3 - 12.4 fL [facility] HEMATOCRIT 41.9 35.5 - 44.0 % [facility] RDW-STDEV 46.5 37.1 - 48.7 fL [facility] MONOCYTE ABSOLUTE 0.82 0.10 - 1.30 K/uL [facility] LYMPHOCYTES 16 16 - 45 % [facility] NEUTROPHIL ABSOLUTE 9.16(H) 1.90 - 7.00 K/uL [facility] NEUTROPHILS 76(H) 45 - 70 % [facility] EOSINOPHILS 1 0 - 7 % [facility] EOSINOPHIL ABSOLUTE 0.06 0.00 - 0.70 K/uL [facility] LYMPHOCYTE ABSOLUTE 1.96 0.70 - 4.50 K/uL [facility] BASOPHILS 0 0 - 2 % [facility] BASOPHILS ABSOLUTE 0.05 0.00 - 0.20 K/uL [facility] MONOCYTES 7 3 - 13 % [facility] Blood specimen (specimen) 01/26/2009 4:41 PM SUBSTATION OPERATOR 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 01/26/2009 5:07 PM SUBSTATION OPERATOR 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 us Sujatha Prado MD HEMATOLOGY ORDERABLES Edited INTERFACE SYSTEM Refer to clinic/hospital department [facility] CLIA# [id number] [address] [place] [address] documented in this encounter Visit Diagnoses Diagnosis Regional enteritis of unspecified site (CMS/HCC) Regional enteritis of unspecified site documented in this encounter Care Teams Quality Control Director Relationship Specialty Start Date End Date Tessy Francois DO [address] [place] [id number] PCP - General 11/17/15 documented as of this encounter
--- OUTSIDE RECORDS SUMMARY | 2025-09-30 15:48 | XMS_ITS | Encounter Summary ---
Author Organization [facility] Address [address] [place] [address] Care Team Providers Care Hemp Fiber Taker Off Name Role Phone Tessy Francois DO Primary Care Provider [phone] Encounter Details Date Type Department Care Team (Late st Contact Info) Description 08/28/2007 Outpatient Historical [facility] [address] 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
--- OUTSIDE RECORDS SUMMARY | 2025-09-30 15:48 | XMS_ITS | Encounter Summary ---
Author Organization [facility] Address [address] [place] [address] Care Team Providers Care Family Member Caretaker Name Role Phone PriscilaTessy Primary Care Provider [phone] Encounter Details Date Type Department Care Team (Late Contact Info) Description 10/23/2008 Outpatient Historical HIS [facility] Sarabia, MD Mago Social History Tobacco Use Types Packs/Day Years Used Date Smoking Tobacco: Never Assessed Comments Unknown Sex and Gender Information Value Date Recorded Sex Assigned at Not on file Legal Sex Female 5:28 AM WATCHMAKER APPRENTICE Gender Identity Not on file Sexual Orientation Not on file documented as of this encounter Plan of Treatment Not on file documented as of this encounter Procedures Procedure Name Priority Date/Time Associated Diagnosis Comments GLUCOSE TOLERANCE, 2 HR Routine 10/23/2008 10:30 AM WATCHMAKER APPRENTICE GLUCOSE FARHAT NON-GEST FOR DIABETES 2 HR Routine 10/23/2008 10:30 AM WATCHMAKER APPRENTICE GLUCOSE TOLERANCE, FASTING Routine 10/23/2008 8:18 AM WATCHMAKER APPRENTICE BASIC METABOLIC PANEL Routine 10/23/2008 8:18 AM WATCHMAKER APPRENTICE documented in this encounter Results * GLUCOSE FARHAT NON-GEST FOR DIABETES 2 HR (10/23/2008 10:30 AM WATCHMAKER APPRENTICE) COMMENT See Additional Orderables [facility] Blood specimen (specimen) 10/23/2008 10:30 AM WATCHMAKER APPRENTICE 10/23/2008 10:32 AM WATCHMAKER APPRENTICE Mago Sarabia MD CHEMISTRY ORDERABLES Final R esult Performing Organization Address [facility] de Phone Number INTERFACE SYSTEM Refer to clinic/hospital department [facility] CLIA# [id number] [address] [place] [address] * GLUCOSE TOLERANCE, 2 HR (10/23/2008 10:30 AM WATCHMAKER APPRENTICE) GLUCOSE, 2HR 135 <=139 mg/dL [facility] Blood specimen (specimen) 10/23/2008 10:30 AM WATCHMAKER APPRENTICE 10/23/2008 10:32 AM WATCHMAKER APPRENTICE Mago Sarabia MD CHEMISTRY ORDERABLES [facility] Performing Organization Address [facility] Phone Number INTERFACE SYSTEM Refer to clinic/hospital department [facility] CLIA# [id number] [address] [address] * BASIC METABOLIC PANEL (10/23/2008 8:18 AM WATCHMAKER APPRENTICE) CHLORIDE 103 96 - 108 mmol/L [facility] GLUCOSE 86 65 - 99 mg/dL [facility] SODIUM 141 135 - 145 mmol/L [facility] CALCIUM 8.6 8.6 - 10.2 mg/dL [facility] CO2 28 22 - 30 mmol/L [facility] CREATININE 0.80 0.51 - 0.95 mg/dL [facility] POTASSIUM 3.9 3.5 - 4.9 mmol/L [facility] BUN 11 6 - 20 mg/dL [facility] GFR, >60 >=60 mL/min/1.7 sq meter [facility] GFR >60 >=60 mL/min/1.7 sq meter [facility] Comment: ansiModification of Diet in Renal Disease (MDRD) study formula. Estimated GFR rate interpretative information for both Americans and non- Americans is available on the [facility] Intranet at: [email or web address] Select: Lab Policies and Procedures Select: Reference Ranges - GFR Blood specimen (specimen) 10/23/2008 8:18 AM WATCHMAKER APPRENTICE 10/23/2008 9:00 AM WATCHMAKER APPRENTICE Mago Sarabia MD CHEMISTRY ORDERABLES Edited Performing Organization Address [facility] de Phone Number INTERFACE SYSTEM Refer to clinic/hospital department [facility] CLIA# [id number] [address] [address] * GLUCOSE TOLERANCE, FASTING (10/23/2008 8:18 AM WATCHMAKER APPRENTICE) GTT INTERP, NON-GESTATION AL Based on 75 g dose: Type 1 or 2 Diabetes Mellitus Criteria: Fasting (Baseline): > = 126 mg/dL or 2 hour specimen: > = 200 mg/dL Impaired Glucose Metabolism Criteria: Fasting (Baseline): 100 - 125 mg/dL 2 hour specimen: 140 - 199 mg/dL [facility] GLUCOSE FASTING 86 <=99 mg/dL [facility] Blood specimen (specimen) 10/23/2008 8:18 AM WATCHMAKER APPRENTICE 10/23/2008 9:00 AM WATCHMAKER APPRENTICE us Mago Sarabia MD CHEMISTRY ORDERABLES Final R esult Performing Organization Address [facility] de Phone Number INTERFACE SYSTEM Refer to clinic/hospital department [facility] CLIA# [id number] [address] [place] [address] documented in this encounter Visit Diagnoses Not on filedocumented in this encounter Care Teams Family Member Caretaker Relationship Specialty Start Date End Date Tessy Francois DO [address] [place] [address] PCP - General 11/17/15 documented as of this encounter
--- OUTSIDE RECORDS SUMMARY | 2025-09-30 15:48 | XMS_ITS | Encounter Summary ---
Author Organization [facility] Address [address] [place] [address] Care Team Providers Care Labor Training Manager Name Role Phone Tessy Francois DO Primary Care Provider [phone] Encounter Details Date Type Department Care Team (Late st Contact Info) Description 08/28/2007 Outpatient Historical HIS [facility] [place] [address] [place] [address] Other Chest Pain (Primary Dx) Social History Tobacco Use Types Packs/Day Years Used Date Smoking Tobacco: Never Assessed Comments Unknown Sex and Gender Information Value Date Recorded Sex Assigned at Not on file 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 Gender Identity Not on file Sexual [...] INTERFACE SYSTEM 08/29/2007 6:00 AM CDT us [employer] Ying CHEMISTRY ORDERABLES Edited Performing Organization Address [facility] de Phone Number INTERFACE SYSTEM [...] available on the [facility] at: [email or web address] Select: Lab Policies and Procedures,Current Select: Lipid Panel Interpretation 08/29/2007 6:00 AM CDT us [employer] Ying CHEMISTRY ORDERABLES Edited Performing Organization Address [facility] de Phone Number INTERFACE SYSTEM Refer to clinic/hospital department * PHOSPHORUS (08/29/2007 6:00 AM CDT) PHOSPHORUS 4.0 2.5 - 4.5 mg/dL INTERFACE SYSTEM 08/29/2007 6:00 AM CDT us [employer] Ying CHEMISTRY ORDERABLES Edited Performing Organization Address City/[facility] Co de Phone Number INTERFACE SYSTEM Refer to clinic/hospital department * MAGNESIUM LEVEL (08/29/2007 6:00 AM CDT) MAGNESIUM 2.2 1.5 - 2.5 mg/dL INTERFACE SYSTEM 08/29/2007 6:00 AM CDT us [employer] Ying CHEMISTRY ORDERABLES Edited Performing Organization Address City/State/[facility] de Phone Number INTERFACE SYSTEM Refer to clinic/hospital department * TROPONIN (W/REFLEX CKMB/CK) (08/28/2007 11:35 PM CDT) TROPONIN T 0.01 <=0.03 ng/mL INTERFACE SYSTEM TROPONIN T INTERP Negative INTERFACE SYSTEM 08/28/2007 11:3 5 PM CDT Viangel Ying CHEMISTRY ORDERABLES Edited Performing Organization Address [facility] de Phone Number INTERFACE SYSTEM [...] ORDERABLES Edited Performing Organization Address [facility] Phone Number INTERFACE SYSTEM Refer to clinic/hospital department * TROPONIN (W/REFLEX CKMB/CK) (08/28/2007 5:13 PM CDT) TROPONIN T <0.01 <=0.03 ng/mL INTERFACE SYSTEM TROPONIN T INTERP Negative INTERFACE SYSTEM 08/28/2007 5:13 PM CDT Haley Ying CHEMISTRY ORDERABLES Edited Performing Organization Address [facility] de Phone Number INTERFACE SYSTEM Refer to clinic/hospital department * TROPONIN (W/REFLEX CKMB/CK) (08/28/2007 2:52 PM CDT) TROPONIN T <0.01 <=0.03 ng/mL INTERFACE SYSTEM TROPONIN T INTERP Negative INTERFACE SYSTEM 08/28/2007 2:52 PM CDT Ajsánchez Ying CHEMISTRY ORDERABLES Edited Performing Organization Address City/[facility] Co de Phone Number INTERFACE SYSTEM [...] ORDERABLES Edited Performing Organization Address [facility] de Phone Number INTERFACE SYSTEM Refer to clinic/hospital department * (ABNORMAL) CBC WITH DIFFERENTIAL (08/27/2007 5:15 PM CDT) Pathologist [facility] WBC 9.1 4.0 - 9.8 K/uL INTERFACE [...] available on the [facility] at: [email or web address] Select: Lab Policies and Procedures Select: Reference Ranges - GFR 08/27/2007 5:15 PM CDT Manjti Mendiola MD CHEMISTRY ORDERABLES Edited INTERFACE SYSTEM [...] Primary documented in this encounter Care Teams Labor Training Manager Relationship Specialty Start Date End Date Tessy Francois DO [address] [place] [address] PCP - General 11/17/15 documented as of this encounter
--- OUTSIDE RECORDS SUMMARY | 2025-09-30 15:48 | XMS_ITS | Encounter Summary ---
Author Organization [facility] Address [address] [place] [address] Care Team Providers Care Operations Officer Name Role Phone Tessy Francois DO Primary Care Provider [phone] [phone] Encounter Details Date Type Department Care Team (Late st Contact Info) Description 08/28/2007 Outpatient Historical [facility] Blood Flow [address] [place] [address] Riaz Alvarado MD NO ADDRESS ON FILE Social History Tobacco Use Types Packs/Day Years Used Date Smoking Tobacco: Never Assessed Comments Unknown Sex and Gender Information Value Date Recorded Sex Assigned at Not on file 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
[2025-09-30 18:59] LABS: Hematocrit 44.5 % (37.0-47.0); Hemoglobin 14.7 g/dL (12.0-15.0); Immature Granulocyte Percent A 0.3 % (0-0.5); Lymphocytes Absolute Auto 1.73 K/mm3 (0.9-3.2); Mean Corpuscular HGB Conc 33.0 g/dl (32-36); Mean Corpuscular Hemoglobin 31.5 pg (26-34); Mean Corpuscular Volume 95.5 fl (80-100); Nucleated Red Blood Cells Absolute Auto 0.000 K/mm3 (0.0-0.012); Nucleated Red Blood Cells Perc 0.0 % (0.0-0.2); Platelet Count Result 339 k/mm3 (150-375); Red Blood Count 4.66 M/mm3 (4.2-5.4); White Blood Count 6.9 K/mm3 (4.5-10.0)
[2025-09-30 19:18] LABS: Alanine Aminotransferase 25 U/L (6-35); Albumin Level 4.6 g/dL (3.5-5.1); Alkaline Phosphatase 118 U/L (38-126); Anion Gap 9 mmol/L (4-12); Aspartate Amino Transferase 42 U/L (14-36); Bilirubin,Total 0.8 mg/dL (0.2-1.3); Blood Urea Nitrogen 13 mg/dL (7-17); Calcium 9.5 mg/dL (8.4-10.2); Carbon Dioxide 28 mmol/L (22-30); Chloride 98 mmol/L (98-107); Estimated Glomerular Filt Rate > 60; Glucose 102 mg/dL (65-110); Potassium 4.7 mmol/L (3.4-5.0); Sodium 135 mmol/L (137-145); Total Protein 8.1 g/dL (6.3-8.2)
[2025-10-04 13:08] LABS: Deamidated Gliadin Abs, IgA 6 units (0-19); Deamidated Gliadin Abs, IgG 3 units (0-19); Immunoglobulin A, Qn 171 mg/dL (87-352)
== END 2025-09-30 15:42 | disposition home or self-care (01) ==
LOC: ANHGOSHLAB 15:42
PROVIDERS: PCP Internal Medicine; Visit Provider Nurse Practitioner
DX: R19.7 Diarrhea, unspecified (principal); R11.2 Nausea with vomiting, unspecified
CPT/HCPCS: 36415; 80053; 82784; 85025; 85652; 86231; 86258